=== PATIENT | female | born 1955 | race Caucasian/White ===

== ENCOUNTER → 2017-07-11 09:18 | Outpatient (CLI) | payer OTHER, SELFPAY ==
[2017-07-11 10:33] LABS: Ferritin 101 ng/mL (8-252); Free T3 2.9 pg/mL (2.18-3.98); T4 Free Direct 1.03 ng/dL (0.76-1.46); Thyroid Stim Hormone (TSH) 1.95 uIU/mL (0.358-3.74)
[2017-07-13 14:44] LABS: Vitamin D,25 Hydroxy 25.6 ng/mL (19.95-100.01)
[2017-07-15 16:09] LABS: Testosterone, Free 0.49 ng/dL (0.10-0.85); Testosterone, Total 27 ng/dL (3-41)
[2017-07-16 12:28] LABS: DHEA Sulfate 144.7 ug/dL (29.4-220.5)
== END ==
PROVIDERS: Family Provider Family Medicine; PCP Family Medicine; Visit Provider Family Medicine
DX: E03.9 Hypothyroidism, unspecified (principal); L65.9 Nonscarring hair loss, unspecified; E55.9 Vitamin D deficiency, unspecified
CPT/HCPCS: 36415; 82306; 82533; 82627; 82728; 84402; 84403; 84439; 84443; 84481; 82626

== ENCOUNTER → 2017-11-20 08:43 | Outpatient (CLI) | payer OTHER, SELFPAY ==
--- NOTE | 2017-11-20 08:43 | DT_ITS ---
This patient was seen during an EMR downtime November 16, 2017 - November 23, 2017. This patient may have a combination of paper and electronic documentation or all paper documentation. All documentation is viewable within the e-chart portion of [facility] for each patient visit.
[2017-11-24 16:10] LABS: Hemoglobin A1c 5.9 % (4.2-6.3)
[2017-11-24 16:21] LABS: Vitamin D,25 Hydroxy 33.3 ng/mL (29.95-100.01)
== END ==
PROVIDERS: Visit Provider Family Medicine
DX: E55.9 Vitamin D deficiency, unspecified (principal); E88.81 Metabolic syndrome and other insulin resistance
CPT/HCPCS: 36415; 80053; 80061; 82306; 83036

== ENCOUNTER → 2017-12-25 08:42 | Outpatient (CLI) | payer OTHER, SELFPAY ==
[2017-12-25 10:57] LABS: ALB/GLOB Ratio 0.9 RATIO (0.9-2.4); AST(SGOT) 28 U/L (15-37); Alanine Aminotransfer ALT/SGPT 44 U/L (13-56); Albumin, Serum 3.6 g/dL (3.2-5.0); Alkaline Phosphatase 111 U/L (45-117); Anion Gap 6 (5-15); BUN 16 mg/dL (7-18); BUN/Creat Ratio 16.5 RATIO (10-20); Calcium,Total 8.9 mg/dL (8.5-10.1); Chloride 107 mmol/L (98-107); Cholesterol 148 mg/dL (200); Creatinine, Serum 0.97 mg/dL (0.55-1.02); EST Glomerular Filtration Rate 62 mL/min (>60); Est Glom Filt Rate - Afr Amer 75 mL/min (>60); Globulin 3.8 g/dL (2.2-4.2); Glucose 121 mg/dL (74-106); High Density Lipoprotein 52 mg/dL; Potassium 3.9 mmol/L (3.5-5.1); Protein, Total 7.4 g/dL (6.4-8.2); Sodium Level 143 mmol/L (136-145); Triglycerides 120 mg/dL; Very Low Density Lipoprotein 24 mg/dL (5-40)
== END ==
PROVIDERS: Family Provider Family Medicine; PCP Family Medicine; Visit Provider Family Medicine
DX: E88.81 Metabolic syndrome and other insulin resistance (principal)
CPT/HCPCS: 80053; 80061

== ENCOUNTER → 2018-05-21 08:58 | Outpatient (CLI) | payer OTHER, SELFPAY ==
[2018-05-21 10:14] LABS: Basophil# 0.05 X10^3/uL; Basophil% 0.8 % (0-1); Eosinophil# 0.26 X10^3/uL; Eosinophils% 4.3 % (0-5); Hematocrit 41.2 % (37-47); Hemoglobin 13.4 g/dl (12.0-15.0); Lymphocyte % 36.4 % (19-41); Mean Corp Hgb Conc 32.5 g/gl (32-36); Mean Corpuscular Volume 92.4 fL (81-99); Mean Platelet Vol. 9.8 fl (6.2-12.0); Monocyte# 0.52 X10^3/uL; Monocyte% 8.6 % (0-10); Neutrophil % 49.7 % (47-70); Platelet Count 277 K/mm3 (150-450); RBC Distribution Width CV 13.2 % (11.6-14.6); RBC Distribution Width SD 44.2 fl (35.1-43.9); Red Blood Count 4.46 M/mm3 (4.2-5.4)
[2018-05-21 10:15] LABS: POSITIVE COUNT NO; POSITIVE DIFFERENTIAL NO; POSITIVE MORPHOLOGY NO
[2018-05-21 10:37] LABS: ALB/GLOB Ratio 0.9 RATIO (0.9-2.4); AST(SGOT) 30 U/L (15-37); Alanine Aminotransfer ALT/SGPT 33 U/L (13-56); Albumin, Serum 3.7 g/dL (3.2-5.0); Alkaline Phosphatase 103 U/L (45-117); Anion Gap 9 (5-15); BUN 14 mg/dL (7-18); Calcium,Total 8.9 mg/dL (8.5-10.1); Chloride 105 mmol/L (98-107); EST Glomerular Filtration Rate 60 mL/min (>60); Est Glom Filt Rate - Afr Amer 72 mL/min (>60); Ferritin 115 ng/mL (8-252); Globulin 3.9 g/dL (2.2-4.2); Glucose 105 mg/dL (74-106); Potassium 3.9 mmol/L (3.5-5.1); Protein, Total 7.6 g/dL (6.4-8.2); Sodium Level 143 mmol/L (136-145); Thyroid Stim Hormone (TSH) 4.19 uIU/mL (0.358-3.74)
== END ==
PROVIDERS: Family Provider Family Medicine; PCP Family Medicine; Visit Provider Family Medicine
DX: E03.9 Hypothyroidism, unspecified (principal); E61.1 Iron deficiency; F33.41 Major depressive disorder, recurrent, in partial remission
CPT/HCPCS: 36415; 80053; 82728; 84443; 85025

== ENCOUNTER → 2018-08-06 14:18 | Outpatient (CLI) | payer BC, SELFPAY | LOC: MFPLAB 14:20 → LABSPEC 14:21 | PROVIDERS: Family Provider Family Medicine; PCP Family Medicine; Referring Provider Family Medicine; Visit Provider Family Medicine | DX: R39.9 Unspecified symptoms and signs involving the genitourinary system (principal) | CPT/HCPCS: 87086; 87088 ==

== ENCOUNTER 2018-08-13 10:08 | Emergency (ER) | payer BC, SELFPAY ==
[2018-08-13 10:10] VITALS: BP 156/85; PULSE 82; RESP 15; TEMP 36.2; O2SAT 95; BMI 46.6
--- NOTE | 2018-08-13 10:23 | CT_ITS ---
STUDY: CT ABDOMEN AND PELVIS WITHOUT CONTRAST REASON FOR EXAM: Female, 63 years old. Lower abdominal pain. History of UTI. RADIATION DOSAGE (If Supplied By Facility): CTDIvol = ( 24.02 ) mGy, DLP = ( 1248.05 ) mGycm TECHNIQUE: Transaxial images were obtained from the dome of the diaphragm to the symphysis pubis without oral contrast, and without intravenous contrast. Sagittal and coronal images were reconstructed. Individualized dose optimization techniques were used for this CT. COMPARISON: Comparison is made with prior examination is February 20, 2017. FINDINGS: The visualized lung bases are unremarkable. The visualized portions of the heart are within normal limits. Normal liver. There are surgical clips in the gallbladder fossa consistent with a prior cholecystectomy. Normal spleen. Normal pancreas. Normal bilateral adrenal glands. Normal right kidney. Normal left kidney. There is a small hiatal hernia. Normal small intestine. There are multiple colonic diverticula consistent with diverticulosis. The patient is status post appendectomy. Normal abdominal aorta. Normal inferior vena cava. Normal retroperitoneum. Normal urinary bladder. There is absence of the uterus consistent with a prior hysterectomy. Normal abdominal wall. Normal osseous structures. CT/Abdomen/Pelvis without Cont IMPRESSION: Sigmoid diverticulosis. No radiographic evidence of diverticulitis at this time. Electronically Signed: Ad Conner, at 11:16 EST , Service support ,
[2018-08-13 10:32] VITALS: BP 156/85; PULSE 82; RESP 17; TEMP 36.2; O2SAT 95
[2018-08-13] MEDS: 0.9% Normal Saline 1,000 ML 125 ML IV (10:56)
[2018-08-13 11:04] LABS: Absolute Lymphocyte Count 1.89 X10^3/ul (0.83-4.51); Absolute Neutrophil Count 3.9 X10^3/uL (2.0-7.7); Basophil# 0.03 X10^3/uL; Basophil% 0.5 % (0-1); Eosinophil# 0.16 X10^3/uL; Eosinophils% 2.4 % (0-5); Hematocrit 41.7 % (37-47); Hemoglobin 13.6 g/dl (12.0-15.0); Lymphocyte # 1.89 X10^3/ul (4.0); Lymphocyte % 28.9 % (19-41); Mean Corp Hgb Conc 32.6 g/gl (32-36); Mean Corpuscular Hgb 30.4 pg (27.0-32.0); Mean Corpuscular Volume 93.1 fL (81-99); Mean Platelet Vol. 9.5 fl (6.2-12.0); Monocyte# 0.61 X10^3/uL; Monocyte% 9.3 % (0-10); Neutrophil # 3.85 X10^3/uL (2.7-7.7); Neutrophil % 58.7 % (47-70); Platelet Count 274 K/mm3 (150-450); RBC Distribution Width CV 12.7 % (11.6-14.6); RBC Distribution Width SD 42.8 fl (35.1-43.9); Red Blood Count 4.48 M/mm3 (4.2-5.4); White Blood Count 6.6 K/mm3 (4.4-11.0)
[2018-08-13 11:05] LABS: POSITIVE COUNT NO; POSITIVE DIFFERENTIAL NO; POSITIVE MORPHOLOGY NO
[2018-08-13 11:19] LABS: Anion Gap 11 (5-15); BUN 13 mg/dL (7-18); BUN/Creat Ratio 14.2 RATIO (10-20); Chloride 104 mmol/L (98-107); Creatinine, Serum 0.91 mg/dL (0.55-1.02); EST Glomerular Filtration Rate 66 mL/min (>60); Est Glom Filt Rate - Afr Amer 80 mL/min (>60); Estimated Creatinine Clearance 61.53 ml/min; Glucose 126 mg/dL (74-106); Potassium 3.8 mmol/L (3.5-5.1); Sodium Level 141 mmol/L (136-145)
[2018-08-13 11:23] LABS: Lactic Acid 1.4 mmol/L (0.4-2.0)
[2018-08-13 11:51] LABS: Bacteria 0 SEEN /hpf (None Seen); Mucous, Urine 0 SEEN /hpf (<or=2+); Red Blood Cells-Urine 0 SEEN /hpf (0-5); White Blood Cells 0 SEEN /hpf (0-5)
[2018-08-13 12:14] LABS: Color, Urine Yellow (Yellow); Glucose, Dipstick Normal (Normal); Ketone-Dipstick Negative (Negative); Leukocyte Esterase-Dipstick Negative /ul (Negative); Nitrite-Dipstick Negative (Negative); Occult Blood-Urine Negative /ul (Negative); Protein-Dipstick Negative (Negative); Urine Bilirubin Dipstick Negative (Negative); Urine Clarity Sl. Cloudy (Clear); Urine Urobilinogen Normal (Normal)
[2018-08-13 12:18] LABS: Squamous Epithelial Cells - UA 5-10 SEEN /hpf (5-10)
--- NOTE | 2018-08-13 12:42 | ED.VISSUMM ---
- ER Visit Summary Date of Service: 08/13/18 Chief Complaint: [Abdominal pain] History of Present Illness: The patient is a 63 F [presents the emergency department complaint of abdominal pain for over a week. Patient was seen a week ago by her primary care physician and diagnosed with a urinary tract infection and was given a shot of Rocephin as well as started on Keflex. Patient has since finished her antibiotics. Patient states that she felt better for a short time but started having severe pain again this morning in her lower abdomen and comes in for evaluation. Patient states that about a week ago she had intermittent fevers. She denies any urinary symptoms currently. She is had some mild nausea but no vomiting. She denies any blood in her stool or black tarry stool. Patient has prior history of cholecystectomy, hysterectomy, bladder suspension with mesh.] Patient states she is had pain off and on for years over the area of the incision where they put in her bladder mesh. Physical Examination: [HEENT-PERRLA, EOMI. Cranial nerves II through XII grossly intact. TMs clear. Mucous membranes moist. No adenopathy. Cardiovascular-regular rate and rhythm without murmur or ectopy Lungs-clear to auscultation, chest wall stable without crepitus or subcu emphysema Abdomen-normoactive bowel sounds, soft. Patient has diffuse tenderness palpation over the lower abdomen with some guarding. There is no rebound, rigidity, or perineal signs. Extremities-intact ?4, normal range of motion, normal pulses, atraumatic] Test Results: [CBC with differential was normal. Chemistries were unremarkable. Lactate was 1.4. Urinalysis was normal. 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 Patient to return if worsening pain, fever, vomiting, or condition should worsen anyway.] Disposition: [Discharged home in stable condition] Impression: [Abdominal pain-etiology uncertain] This note was generated with [employer] software. It may contain incorrect words, spelling, and punctuation that were not noted in review of the chart prior to signing ED Disposition - Plan for ED Patient: Referrals: Blade Horne MD [Primary Care Provider] -
--- NOTE | 2018-08-13 12:45 | ED.DCSUM_ITS ---
- ER Visit Summary Date of Service: 08/13/18 Chief Complaint: [Abdominal pain] History of Present Illness: The patient is a 63 F [presents the emergency department complaint of abdominal pain for over a week. Patient was seen a week ago by her primary care physician and diagnosed with a urinary tract infection and was given a shot of Rocephin as well as started on Keflex. Patient has since finished her antibiotics. Patient states that she felt better for a short time but started having severe pain again this morning in her lower abdomen and comes in for evaluation. Patient states that about a week ago she had intermittent fevers. She denies any urinary symptoms currently. She is had some mild nausea but no vomiting. She denies any blood in her stool or black tarry stool. Patient has prior history of cholecystectomy, hysterectomy, bladder suspension with mesh.] Patient states she is had pain off and on for years over the area of the incision where they put in her bladder mesh. Physical Examination: [HEENT-PERRLA, EOMI. Cranial nerves II through XII grossly intact. TMs clear. Mucous membranes moist. No adenopathy. Cardiovascular-regular rate and rhythm without murmur or ectopy Lungs-clear to auscultation, chest wall stable without crepitus or subcu emph ysema Abdomen-normoactive bowel sounds, soft. Patient has diffuse tenderness palpation over the lower abdomen with some guarding. There is no rebound, rigidity, or perineal signs. Extremities-intact ?4, normal range of motion, normal pulses, atraumatic] Test Results: [CBC with differential was normal. Chemistries were unremarkable. Lactate was 1.4. Urinalysis was normal. CT scan showed diverticulosis otherwise nothing acute.] Emergency Department Course and Treatment: [Patient did not want pain medication.] Treatment Plan: [Patient will be given a prescription for [place] for severe pain and advised to follow-up with her CHANNELER INSOLE or primary care physician. Patient to return if worsening pain, fever, vomiting, or condition should worsen anyway.] Disposition: [Discharged home in stable condition] Impression: [Abdominal pain-etiology uncertain] This note was generated with [employer] software. It may contain incorrect words, spelling, and punctuation that were not noted in review of the chart prior to signing ED Disposition - Plan for ED Patient: Referrals: Blade Horne MD [Primary Care Provider] -
--- NOTE | 2018-08-13 12:45 | ED.DEP ---
ED Disposition - Plan for ED Patient: Instructions: ED Abdominal Pain Unkn Cause Prescriptions: Hydrocodone Bitart/Apap 5-325 [Gordo 5MG-325MG] 1 tab PO Q4H PRN PRN 2 Days #10 tab PRN Reason: Pain Referrals: Blade Horne MD [Primary Care Provider] - 3-5 Days Angel Lundberg MD [STAFF PHYSICIAN] - 3-5 Days
[2018-08-13 12:56] VITALS: BP 144/97; PULSE 77; RESP 14
== END 2018-08-13 12:57 | disposition home or self-care (01) ==
PROVIDERS: Emergency Provider Emergency Medicine; Family Provider Family Medicine; PCP Family Medicine
DX: R10.9 Unspecified abdominal pain (principal); R11.0 Nausea; E78.00 Pure hypercholesterolemia, unspecified; K21.9 Gastro-esophageal reflux disease without esophagitis; E03.9 Hypothyroidism, unspecified; K57.30 Diverticulosis of large intestine without perforation or abscess without bleeding; Z90.49 Acquired absence of other specified parts of digestive tract; Z90.710 Acquired absence of both cervix and uterus; Z87.440 Personal history of urinary (tract) infections
CPT/HCPCS: 74176; 80048; 81001; 83605; 85025; 96360; 96361; 99283; J7030; A4216

== ENCOUNTER → 2019-01-05 12:31 | Outpatient (CLI) | payer BC, SELFPAY ==
[2019-01-05 14:18] LABS: Hematocrit 37.1 % (37-47); Hemoglobin 12.3 g/dL (12.0-15.0); Mean Corp Hgb Conc 33.2 g/dL (32-36); Mean Corpuscular Hgb 30.8 pg (27.0-32.0); Mean Corpuscular Volume 92.8 fL (81-99); Mean Platelet Vol. 10.1 fl (6.2-12.0); Platelet Count 264 K/mm3 (150-450); RBC Distribution Width SD 44.5 fl (35.1-43.9); White Blood Count 5.8 K/mm3 (4.4-11.0)
[2019-01-05 14:36] LABS: AST(SGOT) 32 U/L (15-37); Alanine Aminotransfer ALT/SGPT 41 U/L (13-56); Albumin, Serum 3.5 g/dL (3.2-5.0); Alkaline Phosphatase 92 U/L (45-117); Anion Gap 8 (5-15); BUN 13 mg/dL (7-18); BUN/Creat Ratio 12.9 RATIO (10-20); CRP < 2.90 mg/L (0.0-3.0); Calcium,Total 8.3 mg/dL (8.5-10.1); Chloride 110 mmol/L (98-107); Creatinine, Serum 1.01 mg/dL (0.55-1.02); EST Glomerular Filtration Rate 59 mL/min (>60); Est Glom Filt Rate - Afr Amer 71 mL/min (>60); Globulin 3.4 g/dL (2.2-4.2); Glucose 89 mg/dL (74-106); Protein, Total 6.9 g/dL (6.4-8.2); Sodium Level 143 mmol/L (136-145)
== END ==
PROVIDERS: Family Provider Family Medicine; PCP Family Medicine; Referring Provider Family Medicine; Visit Provider Family Medicine
DX: K57.32 Diverticulitis of large intestine without perforation or abscess without bleeding (principal)
CPT/HCPCS: 36415; 80053; 85027; 86140

== ENCOUNTER → 2019-01-28 10:41 | Outpatient (CLI) | payer BC, SELFPAY ==
[2019-01-14 07:43] VITALS: BMI 46.6
[2019-01-28 12:34] LABS: Absolute Lymphocyte Count 2.19 X10^3/uL (0.83-4.51); Absolute Neutrophil Count 3.7 X10^3/uL (2.0-7.7); Basophil# 0.04 X10^3/uL; Basophil% 0.6 % (0-1); Eosinophil# 0.17 X10^3/uL; Eosinophils% 2.6 % (0-5); Hematocrit 40.1 % (37-47); Hemoglobin 13.2 g/dL (12.0-15.0); Lymphocyte # 2.19 X10^3/ul (4.0); Lymphocyte % 32.9 % (19-41); Mean Corp Hgb Conc 32.9 g/dL (32-36); Mean Corpuscular Hgb 30.6 pg (27.0-32.0); Monocyte# 0.54 X10^3/uL; Monocyte% 8.1 % (0-10); NRBC Flagged by Analyzer 0 % (0-5); Neutrophil # 3.69 X10^3/uL (2.7-7.7); Neutrophil % 55.5 % (47-70); Platelet Count 261 K/mm3 (150-450); RBC Distribution Width CV 12.5 % (11.6-14.6); RBC Distribution Width SD 43.2 fl (35.1-43.9); Red Blood Count 4.31 M/mm3 (4.2-5.4); White Blood Count 6.7 K/mm3 (4.4-11.0)
[2019-01-28 12:52] LABS: Hemoglobin A1c 5.9 % (4.2-6.3)
[2019-01-28 12:54] LABS: Vitamin D,25 Hydroxy 40.6 ng/mL (29.95-100.01)
[2019-01-28 12:59] LABS: ALB/GLOB Ratio 0.9 RATIO (0.9-2.4); AST(SGOT) 32 U/L (15-37); Alanine Aminotransfer ALT/SGPT 52 U/L (13-56); Albumin, Serum 3.6 g/dL (3.2-5.0); Alkaline Phosphatase 119 U/L (45-117); Anion Gap 4 (5-15); BUN 16 mg/dL (7-18); BUN/Creat Ratio 17.3 RATIO (10-20); Calcium,Total 8.8 mg/dL (8.5-10.1); Chloride 108 mmol/L (98-107); Creatinine, Serum 0.92 mg/dL (0.55-1.02); EST Glomerular Filtration Rate 65 mL/min (>60); Est Glom Filt Rate - Afr Amer 79 mL/min (>60); Free T3 2.8 pg/mL (2.18-3.98); Globulin 3.9 g/dL (2.2-4.2); Glucose 109 mg/dL (74-106); Protein, Total 7.5 g/dL (6.4-8.2); Sodium Level 140 mmol/L (136-145); T4 Free Direct 0.92 ng/dL (0.76-1.46); Thyroid Stim Hormone (TSH) 3.72 uIU/mL (0.358-3.74)
== END ==
PROVIDERS: Family Provider Family Medicine; PCP Family Medicine; Referring Provider Family Medicine; Visit Provider Family Medicine
DX: E03.9 Hypothyroidism, unspecified (principal); K76.9 Liver disease, unspecified; E55.9 Vitamin D deficiency, unspecified
CPT/HCPCS: 36415; 80053; 82306; 83036; 84439; 84443; 84481; 85025

== ENCOUNTER 2019-02-07 08:45 | Day surgery (SDC) | payer BC, SELFPAY ==
[2019-01-14 07:43] VITALS: BMI 46.6
--- NOTE | 2019-01-15 10:43 | HP_ITS ---
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: No Is patient in pain?: No Allergies pravastatin [From Pravachol] Allergy (Mild, Verified 01/14/19 07:33) itching ketoprofen [From Orudis] Allergy (Verified 08/13/18 10:09) Nausea/Vom/Diarrhea Medications Levothyroxine [Synthroid] 150 mcg PO DAILY 06/15/13 [History Confirmed 01/14/19] Rosuvastatin Calcium [Crestor] 20 mg PO DAILY 06/15/13 [History Confirmed 01/14/19] Omeprazole [Prilosec] 20 mg PO DAILY 02/09/14 [History Confirmed 01/14/19] Calcium Carbonate [Calcium] 500 mg PO DAILY 08/13/18 [History Confirmed 01/14/19] Cholecalciferol (Vitamin D3) [Vitamin D3] 3,000 unit PO DAILY 08/13/18 [History Confirmed 01/14/19] Doxepin HCl 25 - 50 mg PO DAILY 08/13/18 [History Confirmed 01/14/19] Ferrous Sulfate [Iron] 325 mg PO DAILY 08/13/18 [History Confirmed 01/14/19] Pramipexole Di-HCl [Mirapex] 0.25 - 0.75 mg PO QHS 08/13/18 [History Confirmed 01/14/19] Vortioxetine Hydrobromide [Trintellix] 10 mg PO DAILY 08/13/18 [History Confirmed 01/14/19] traZODone [Desyrel] 50 - 100 mg PO QHS PRN 08/13/18 [History Confirmed 01/14/19] dicyclomine 20 mg tablet 20 mg PO BID 01/14/19 [History Confirmed 01/14/19] fexofenadine 180 mg tablet 180 mg PO DAILY 01/14/19 [History Confirmed 01/14/19] ipratropium bromide 0.03 % nasal spray 2 spray INTRANASAL BID 01/14/19 [History Confirmed 01/14/19] mecobalamin (vitamin B12) 5,000 mcg disintegrating tablet mcg PO tab 01/14/19 [History] melatonin 1 mg tablet 1 mg PO HS 01/14/19 [History Confirmed 01/14/19] montelukast 10 mg tablet 10 mg PO QPM 01/14/19 [History Confirmed 01/14/19] Is last menstrual period known: No Post menopausal: Yes Patient : No PFSH Medical History Depression (emotion) (Chronic) Morbid obesity with BMI of 40.0-44.9, adult (Chronic) Anxiety (Chronic) Hypothyroidism (Chronic) Respiratory insufficiency (Acute) Hyperlipemia (Chronic) Barretts esophagus (Acute) Diverticulitis (Acute) GERD (gastroesophageal reflux disease) (Acute) History of hysterectomy (Acute ~1998) Surgical History History of cholecystectomy (Acute ~1998) History of colonoscopy (Acute) History of esophagogastroduodenoscopy (EGD) (Acute ~2015) Family History Sister CAD (coronary artery disease) Brother CAD (coronary artery disease) Heart disease Myocardial infarction Mother Diabetes Myocardial infarction Father Hypertension Heart disease Myocardial infarction Social History (Updated 01/15/19 @ 10:43 by Dony Gnozales MD) Smoking Status: Never smoker HPI HPI HPI: CULLEN CUEVA, is a 63 F who presents to the office today for HPI HPI Surgical H&P: Yes HPI: CULLEN CUEVA, is a 63 F who presents to the office today for EGD and colonoscopy. 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 Presently though the patient has been experiencing left lower quadrant abdominal pain and has had numerous episodes of diverticulitis which have been treated effectively in an outpatient setting. This year alone she has had probably more than 3 episodes of diverticulitis treated with oral antibiotics. Her most recent CAT scan of the abdomen and pelvis without contrast showed only diverticulosis in the sigmoid colon no radiologic evidence of diverticulitis. This was completed on 08/13/2018 it has been greater than 10 years since her last colonoscopy. Patient presents for evaluation and possible surgical evaluation of her diverticular disease. ROS General General: No weight change, appetite, fatigue, colon cancer, breast cancer or weakness HEENT HEENT: No difficulty swallowing, eye injury, eye surgery, swollen glands or hoarseness Endo Endocrine: Yes thyroid disease; no diabetes mellitus, thyroid cancer, Hair loss, heat intolerance or cold intolerance Cardio Cardiovascular: No murmur, pacemaker, heart disease, atrial fibrillation, high blood pressure, heart attack, heart stent, palpitations, shortness of breat with exertion or chest pain Psych Psychiatric: Yes depression; no anxiety or hearing voices Resp Respiratory: No shortness of breath, No sleep apnea, No cough, No COPD, No asthma, No emphysema, No wheezing Gastro Gastrointestinal: Yes abdominal pain, Yes nausea or vomiting, Yes diarrhea, Yes constipation, No blood in stool, Yes acid reflux, No hemorrhoids, No ulcers, Yes gallbladder problem, No black,tarry stools Neuro Neurologic: No weakness Exam Const General: no acute distress, well developed, well hydrated Orientation: oriented to person, oriented to place, oriented to time [facility] Head: normocephalic, atraumatic Ears: external ears normal Mouth: moist mucous membranes Eyes Sclera: sclerae normal Pupils: normal by confrontation Neck Neck: no lymphadenopathy noted Neck mass: No Thyroid: thyroid normal, symmetrical Chest Chest palpation & inspection: normal inspection of the chest Resp Effort & Inspection: normal respiratory effort Auscultation: clear to auscultation bilaterally Percussion: percussion normal Cardio Rate: regular rate Rhythm: regular rhythm Heart Sounds: no murmurs GI Palpation: soft, no hepatosplenomegaly, no masses, nontender Rectal Exam: other Other: Rectal exam deferred. Extrem General: normal to inspection, no clubbing, cyanosis or edema Assessment & Plan Problems 1. Diverticulitis large intestine w/o perforation or abscess w/o bleeding K57.32 2. Left lower quadrant abdominal pain R10.32 Plan I have discussed the above with the patient. I have offered the patient colonoscopy for evaluation. I have explained the risks/benefits of the procedure and described the procedure. I have discussed the risks with the patient, including but not limited to: infection, bleeding, perforation of the GI tract requiring emergency surgery, inability to complete the procedure, injury to any internal organs, complications of anesthesia, etc. - the patient understands and agrees to proceed. I have answered all the patient's questions to the patient's satisfaction and the patient has no further questions. The patient has been given instructions for the colon cleansing preparation. Patient will need to have a repeat upper endoscopy sometime in April as well. I will see her back at that time so that we could get that scheduled. Orders Orders: Colonoscopy 01/14/19 K57.92 Coding Level of Care Code Off vis,new,level 3 Diagnoses Diverticulitis large intestine w/o perforation or abscess w/o bleeding K57.32 Left lower quadrant abdominal pain R10.32 01/15/19 1043 <Electronically signed by Dony lucas MD> Date _ Dony Gonzales MD I have re-examined the patient. There are no clinical changes since date of exam.
[2019-02-07 09:03] VITALS: BP 147/79; PULSE 76; RESP 16; TEMP 36.9; O2SAT 94; BMI 44.1
[2019-02-07] MEDS: Lactated Ringers 1,000 ML 75 ML IV (09:21)
[2019-02-07 10:29] VITALS: BP 135/80; BP 147/79; PULSE 69; RESP 16; TEMP 36.4; O2SAT 92
--- NOTE | 2019-02-07 10:31 | OP.ENDO_ITS ---
02/07/2019 Blade Horne [address] [place] [address] Re : Colonoscopy procedure for Cathie Escudero Dear Dr. Horne This procedure was performed on Thursday, February 07, 2019. My impressions and recommendations are as follows: Impressions : - Diverticulosis in the sigmoid colon and in the descending colon. No specimens collected. - Non-bleeding internal hemorrhoids. No specimens collected. - The examination was otherwise normal. Recommendations : - Discharge patient to home. - Resume previous diet. - Continue present medications. - Repeat colonoscopy in 10 years for screening purposes. - Return to primary care physician PRN. My findings are described in the full procedure note, which is enclosed. If I can be of further assistance, please feel free to contact me at Doctor phone number(s): , Fax: [phone], Work: . Sincerely, MD Dony Kaur MD 02/07/2019 10:30:24 AM This report has been signed electronically.
[2019-02-07 10:35] VITALS: BP 142/77; BP 147/79; PULSE 67; RESP 16; O2SAT 93
[2019-02-07 10:40] VITALS: BP 143/84; BP 147/79; PULSE 57; RESP 18; O2SAT 94
[2019-02-07 10:45] VITALS: BP 126/91; BP 147/79; PULSE 56; RESP 18; TEMP 37; O2SAT 94
[2019-02-07 10:56] VITALS: BP 147/79
== END 2019-02-07 10:58 | disposition home or self-care (01) ==
LOC: EN 08:45 → AC 08:47
PROVIDERS: Family Provider Family Medicine; PCP Family Medicine; Referring Provider Family Medicine; Visit Provider Surgery
PROC: 0DJD8ZZ Inspection of Lower Intestinal Tract, Via Natural or Artificial Opening Endoscopic (ICD-10-PCS; CPT 45378; principal; 2019-02-07 09:55)
DX: Z12.11 Encounter for screening for malignant neoplasm of colon (principal); K64.8 Other hemorrhoids; K57.32 Diverticulitis of large intestine without perforation or abscess without bleeding; K57.30 Diverticulosis of large intestine without perforation or abscess without bleeding; F32.9 Major depressive disorder, single episode, unspecified; E66.01 Morbid (severe) obesity due to excess calories; F41.9 Anxiety disorder, unspecified; Z68.41 Body mass index [BMI] 40.0-44.9, adult; K21.9 Gastro-esophageal reflux disease without esophagitis; E78.5 Hyperlipidemia, unspecified; E03.9 Hypothyroidism, unspecified; Z90.49 Acquired absence of other specified parts of digestive tract
CPT/HCPCS: 45378; J7120; J2405

== ENCOUNTER 2019-04-08 08:30 | Outpatient (RCR) | payer SELFPAY | END 2019-04-14 23:59 | LOC: NS 08:30 | PROVIDERS: Family Provider Family Medicine; PCP Family Medicine; Visit Provider Family Medicine | DX: Z71.3 Dietary counseling and surveillance (principal); E66.9 Obesity, unspecified; Z68.41 Body mass index [BMI] 40.0-44.9, adult; K58.9 Irritable bowel syndrome, unspecified | CPT/HCPCS: 97802; 97803 ==

== ENCOUNTER → 2019-04-28 08:41 | Outpatient (CLI) | payer BC, SELFPAY ==
[2019-04-28 10:37] LABS: Thyroid Stim Hormone (TSH) 3.28 uIU/mL (0.358-3.74)
== END ==
PROVIDERS: Family Provider Family Medicine; PCP Family Medicine; Referring Provider Family Medicine; Visit Provider Family Medicine
DX: E03.9 Hypothyroidism, unspecified (principal)
CPT/HCPCS: 36415; 84443

== ENCOUNTER 2019-05-11 11:00 | Outpatient (RCR) | payer BC, SELFPAY | END 2019-05-14 23:59 | LOC: NS 11:00 | PROVIDERS: Family Provider Family Medicine; PCP Family Medicine; Visit Provider Family Medicine | DX: Z71.3 Dietary counseling and surveillance (principal); E66.9 Obesity, unspecified; Z68.41 Body mass index [BMI] 40.0-44.9, adult; K58.9 Irritable bowel syndrome, unspecified | CPT/HCPCS: 97803 ==

== ENCOUNTER → 2019-10-21 | Outpatient (CLI) | payer BC, SELFPAY ==
[2019-10-21 09:54] LABS: Absolute Lymphocyte Count 3.67 X10^3/uL (0.83-4.51); Absolute Neutrophil Count 3.2 X10^3/uL (2.0-7.7); Basophil# 0.05 X10^3/uL; Basophil% 0.6 % (0-1); Eosinophil# 0.17 X10^3/uL; Eosinophils% 2.2 % (0-5); Hemoglobin 14.2 g/dL (12.0-15.0); Lymphocyte # 3.67 X10^3/ul (4.0); Lymphocyte % 47.3 % (19-41); Mean Corp Hgb Conc 32.3 g/dL (32-36); Mean Corpuscular Hgb 31.1 pg (27.0-32.0); Mean Corpuscular Volume 96.3 fL (81-99); Monocyte# 0.69 X10^3/uL; Monocyte% 8.9 % (0-10); NRBC Flagged by Analyzer 0 % (0-5); Neutrophil # 3.17 X10^3/uL (2.7-7.7); Neutrophil % 40.9 % (47-70); Platelet Count 292 K/mm3 (150-450); RBC Distribution Width CV 13.2 % (11.6-14.6); Red Blood Count 4.57 M/mm3 (4.2-5.4); White Blood Count 7.8 K/mm3 (4.4-11.0)
[2019-10-21 10:06] LABS: ALB/GLOB Ratio 0.9 RATIO (0.9-2.4); AST(SGOT) 23 U/L (15-37); Alanine Aminotransfer ALT/SGPT 35 U/L (13-56); Albumin, Serum 3.7 g/dL (3.2-5.0); Alkaline Phosphatase 120 U/L (45-117); Anion Gap 5 (5-15); BUN 16 mg/dL (7-18); BUN/Creat Ratio 16.1 RATIO (10-20); CRP < 2.90 mg/L (0.0-3.0); Calcium,Total 8.8 mg/dL (8.5-10.1); Chloride 102 mmol/L (98-107); EST Glomerular Filtration Rate 60 mL/min (>60); Est Glom Filt Rate - Afr Amer 72 mL/min (>60); Glucose 106 mg/dL (74-106); Potassium 3.6 mmol/L (3.5-5.1); Protein, Total 7.7 g/dL (6.4-8.2); Sodium Level 138 mmol/L (136-145)
== END | disposition home or self-care (01) ==
LOC: MTLAB 07:33
PROVIDERS: PCP Family Medicine; Referring Provider Family Medicine; Visit Provider Family Medicine
DX: R19.7 Diarrhea, unspecified (principal)
CPT/HCPCS: 36415; 80053; 85025; 86140; 87506

== ENCOUNTER → 2019-11-04 09:00 | Outpatient (CLI) | payer BC, SELFPAY ==
[2019-11-04 10:19] LABS: T4 Free Direct 1.04 ng/dL (0.76-1.46); Thyroid Stim Hormone (TSH) 3.57 uIU/mL (0.358-3.74)
== END ==
PROVIDERS: PCP Family Medicine; Referring Provider Family Medicine; Visit Provider Family Medicine
DX: E03.9 Hypothyroidism, unspecified (principal)
CPT/HCPCS: 36415; 84439; 84443

== ENCOUNTER → 2019-12-08 | Outpatient (CLI) | payer BC, SELFPAY ==
[2019-12-08 17:40] LABS: Vitamin D,25 Hydroxy 42.4 ng/mL
== END | disposition home or self-care (01) ==
LOC: MFPLAB 14:37
PROVIDERS: PCP Family Medicine; Referring Provider Family Medicine; Visit Provider Family Medicine
DX: E55.9 Vitamin D deficiency, unspecified (principal)
CPT/HCPCS: 36415; 82306

== ENCOUNTER → 2019-12-22 | Outpatient (CLI) | payer BC, SELFPAY ==
[2019-12-22 17:51] LABS: Thyroid Stim Hormone (TSH) 3.47 uIU/mL (0.358-3.74)
== END | disposition home or self-care (01) ==
LOC: MFPLAB 15:03
PROVIDERS: PCP Family Medicine; Referring Provider Family Medicine; Visit Provider Family Medicine
DX: E03.9 Hypothyroidism, unspecified (principal)
CPT/HCPCS: 36415; 84443

== ENCOUNTER → 2020-03-22 | Outpatient (CLI) | payer BC, MEDICARE, SELFPAY ==
--- NOTE | 2020-03-22 17:02 | MRI_ITS ---
STUDY: MRI BRAIN WITHOUT CONTRAST REASON FOR EXAM: Female, 64 years old. transient memory loss, confusion, increased forgetfulness since being ill w/ Covid symptoms 10/2019 TECHNIQUE: Standardized multiplanar fat and water weighted pulse sequences were obtained. COMPARISON: CT of the brain 05/05/2009 FINDINGS: Normal size of the ventricles and extra-axial spaces for the patient''s age. Solitary tiny nonspecific white matter lesions without mass effect or restricted diffusion of uncertain clinical significance... Normal bilateral basal ganglia. Normal thalami. There is no extra-axial fluid accumulation. Normal flow voids within the major intracranial circulation suggesting patency by spin echo criteria. Normal sella turcica, pituitary gland, infundibular stalk, optic chiasm and hypothalamus. Normal tectal plate and pineal gland. Normal midbrain, sherie and medulla. Normal cerebellum. Normal basal cisterns. Normal bilateral temporal bones. Normal bilateral internal auditory canals. No demonstrated orbital abnormality, within the constraints of a routine brain study. Normal visualized paranasal sinuses. Normal calvarium and skull base. Normal visualized soft tissue structures. Normal visualized upper cervical spine. MRI/Brain without Contrast IMPRESSION: Tiny nonspecific white matter lesion in the right frontal lobe. No significant white matter disease or acute infarct. Electronically Signed: Maico Card MD at 19:20 EDT , Service support ,
== END | disposition home or self-care (01) ==
PROVIDERS: PCP Family Medicine; Referring Provider Family Medicine; Visit Provider Family Medicine
DX: R41.3 Other amnesia (principal)
CPT/HCPCS: 70551

== ENCOUNTER → 2020-03-26 | Outpatient (CLI) | payer MEDICARE, BC, SELFPAY ==
[2020-03-26 10:31] LABS: Cholesterol 157 mg/dL (200); Free T3 2.9 pg/mL (2.18-3.98); High Density Lipoprotein 66 mg/dL; T4 Total, Thyroxin 9.9 ug/dL (4.8-13.9); Thyroid Stim Hormone (TSH) 4.17 uIU/mL (0.358-3.74); Triglycerides 115 mg/dL; Very Low Density Lipoprotein 23 mg/dL (5-40)
== END | disposition home or self-care (01) ==
LOC: MTLAB 09:02
PROVIDERS: PCP Family Medicine; Referring Provider Family Medicine; Visit Provider Family Medicine
DX: E03.9 Hypothyroidism, unspecified (principal); E66.01 Morbid (severe) obesity due to excess calories
CPT/HCPCS: 36415; 80061; 84436; 84443; 84481

== ENCOUNTER 2020-06-01 10:26 | Day surgery (SDC) | payer BC, MEDICARE, SELFPAY ==
[2020-05-18 12:58] VITALS: BMI 47.4
[2020-05-21 10:31] VITALS: BMI 47.4
--- NOTE | 2020-05-23 10:00 | HP_ITS ---
Intake Vital Signs 05/18/20 Height 5 ft 7 in 05/18/20 Weight: 303 lb 05/18/20 BMI 47.4 05/18/20 BP 136/82 H 05/18/20 Blood Pressure Location Lt brachial 05/18/20 Position Sitting 05/18/20 Respiration 19 H 05/18/20 Pulse 90 05/18/20 Pulse Source Monitor 05/18/20 Temp 97.5 F L 05/18/20 Temp Source Temporal 05/18/20 Pulse Oximetry (%) 97 05/18/20 Oxygen Delivery Method room air Intake Visit Reasons: EGD Chief Complaint: Barretts esophagus Explosives Operator Required: No Accompanied by: Self Is patient in pain?: No Allergies pravastatin [From Pravachol] Allergy (Mild, Verified 05/18/20 13:04) itching ketoprofen [From Orudis] Allergy (Verified 05/18/20 13:04) Nausea/Vom/Diarrhea Medications Levothyroxine [Synthroid] 150 mcg PO DAILY 06/15/13 [History Confirmed 05/18/20] Rosuvastatin Calcium [Crestor] 20 mg PO DAILY 06/15/13 [History Confirmed 05/18/20] Omeprazole [Prilosec] 20 mg PO DAILY 02/09/14 [History Confirmed 05/18/20] Calcium Carbonate [Calcium] 500 mg PO DAILY 08/13/18 [History Confirmed 05/18/20] Cholecalciferol (Vitamin D3) [Vitamin D3] 3,000 unit PO DAILY 08/13/18 [History Confirmed 05/18/20] Pramipexole Di-HCl [Mirapex] 0.25 - 0.75 mg PO QHS 08/13/18 [History Confirmed 05/18/20] Vortioxetine Hydrobromide [Trintellix] 10 mg PO DAILY 08/13/18 [History Confirmed 05/18/20] traZODone [Desyrel] 50 - 100 mg PO QHS PRN 08/13/18 [History Confirmed 05/18/20] dicyclomine 20 mg tablet 20 mg PO BID 01/14/19 [History Confirmed 05/18/20] mecobalamin (vitamin B12) 5,000 mcg disintegrating tablet 5,000 mcg PO DAILY tab 01/14/19 [History Confirmed 05/18/20] melatonin 1 mg tablet 1 mg PO HS PRN 01/14/19 [History Confirmed 05/18/20] nortriptyline 10 mg capsule 40 mg PO DAILY cap 05/18/20 [History Confirmed 05/18/20] [facility] Medical History Depression (emotion) (Chronic) Morbid obesity with BMI of 40.0-44.9, adult (Chronic) Anxiety (Chronic) Hypothyroidism (Chronic) Respiratory insufficiency (Acute) Hyperlipemia (Chronic) Barretts esophagus (Acute) Diverticulitis (Acute) GERD (gastroesophageal reflux disease) (Acute) Surgical History History of cholecystectomy (Acute ~1998) History of colonoscopy (Acute) History of esophagogastroduodenoscopy (EGD) (Acute ~2015) History of hysterectomy (Acute ~1998) Family History Sister CAD (coronary artery disease) Brother CAD (coronary artery disease) Heart disease Myocardial infarction Mother Diabetes Myocardial infarction Father Hypertension Heart disease Myocardial infarction Social History (Updated 05/18/20 @ 13:[address] Dony Gonzales MD) Smoking Status: Never smoker Tobacco: How many years used: 15 Electronic Cigarette Use: not used how long ago did patient quit smokin years second hand exposure: No alcohol intake: current alcohol intake frequency: holidays/special occasions only substance use type: does not use HPI HPI Surgical H&P: Yes HPI: CULLEN CUEVA, is a 65 F who presents to the office today for Evaluation for an EGD. Patient has a known history of Stauffer's esophagus. She states that has been greater than 3 years since her last upper scope which was done in [place]. She reports that at that time she was told that everything looks fine however she did not recall if they had done biopsies or not. She states that she has been doing well on her current PPI regiment. Occasionally she needs to take an extra omeprazole. This got a little bit worse when she was recently started on nortriptyline but now she has been doing better. She complains of no epigastric pain at this time. She is not having any nausea or vomiting. ROS Endo Endocrine: Yes thyroid disease Psych Psychiatric: Yes depression Resp Respiratory: Yes sleep apnea Gastro Gastrointestinal: Yes acid reflux, Yes gallbladder problem Exam Const General: no acute distress, well developed, well hydrated Orientation: oriented to person, oriented to place, oriented to time [facility] Head: normocephalic, atraumatic Ears: external ears normal Mouth: moist mucous membranes Eyes Sclera: sclerae normal Pupils: normal by confrontation Neck Neck: no lymphadenopathy noted Neck mass: No Thyroid: thyroid normal, symmetrical Chest Chest palpation & inspection: normal inspection of the chest Resp Effort & Inspection: normal respiratory effort Auscultation: clear to auscultation bilaterally Percussion: percussion normal Cardio Rate: regular rate Rhythm: regular rhythm GI Inspection: obesity Palpation: soft, no hepatosplenomegaly, no masses, nontender Rectal Exam: other Other: Rectal exam deferred. Extrem General: normal to inspection, no clubbing, cyanosis or edema Assessment & Plan Problems 1. Gastroesophageal reflux disease, unspecified whether esophagitis present K21.9 Plan I have discussed the above with the patient. I have offered the patient esophagogastroduodenoscopy for evaluation. I have explained the risks/benefits of the procedure and described the procedure. I have discussed the risks with the patient, including but not limited to: infection, bleeding, perforation of the GI tract requiring emergency surgery, inability to complete the procedure, injury to any internal organs, complications of anesthesia, etc. - the patient understands and agrees to proceed. I have answered all the patient's questions to the patient's satisfaction and the patient has no further questions. The patient has been given instructions for the colon cleansing preparation. Coding Level of Care Code Off vis,est,level 3 Diagnoses Gastroesophageal reflux disease, unspecified whether esophagitis present K21.9 ??Esophagitis presence: esophagitis presence not specified COVID (Procedure Consent) Procedure Criteria Procedure Criteria: Yes Elective The surgeon/proceduralist and patient have discussed in detail the risk of exposure to and/or potential harm posed by the COVID-19 virus with having a surgery/procedure at this time versus the risk of? delaying the surgery/procedure. It is not possible to know either the risk of delaying the surgery or procedure or chance of getting an infection with perfect accuracy, but a joint decision was made between the patient and the surgeon/proceduralist ?to proceed at this time with the scheduled surgery/procedure as indicated on the consent form. I have re-examined the patient. There are no clinical changes since date of exam.
[2020-06-01] VITALS (7 sets, daily range): BP systolic 107–153; BP diastolic 63–90; PULSE 83–94; RESP 16; TEMP 36.3–36.5; O2SAT 88–94; BMI 47.1
[2020-06-01] MEDS: Lactated Ringers 1,000 ML 100 ML IV (11:08)
--- NOTE | 2020-06-01 11:45 | IMM_PTH ---
PATIENT: CULLEN CUEVA LOC: EN U#:[id number] AGE/SX: 65/F ROOM: RE06/01/[address]: Dr. Dony Gonzales MD : 1955 BED: DIS: 06/01/2020 SPEC #: [id number] RECD: 06/01/20 13:53 STATUS: ALTHEA REQ #: [id number] PEGGY: 06/01/20 11:[address]: Dony Gonzales DEPT: IMMUNOHISTOCHEMISTRY RECD BY: Madonna Mayes ENTERED: 06/01/20 13:56 SP TYPE: IMMUNO OTHR DR: Dr. Nate Baker MD Tissues: A - Stomach, NOS Procedures: H Pylori (initial) PHYSICIAN & INSTITUTION [place] [id number] SPECIMEN INFORMATION: Tissue Source: A - Antrum biopsy Clinical Info: GERD, esophagitis Specimen Number: [id number] CPT code: 50802 METHODOLOGY: Deparaffinized sections of prefer/formalin-fixed tissue or PAP/DQ stained slides are incubated with monoclonal/polyclonal antibodies/oligonucleotide probes. Localization is made via biotin free immunoperoxidase method. Appropriate controls are performed and reacted as expected. Results on target cell population are indicated in the following table: RESULTS: ANTIBODY / CLONE RESULT Block A H Pylori (polyclonal) negative These tests were developed and their performance characteristics determined by [facility]. They may not have been cleared or approved by the U.S. Food and Drug Administration. The FDA has determined that such clearance or approval is not necessary. INTERPRETATION: A. Antrum, biopsy: Negative for Helicobacter pylori organisms. SJ:karen 06/04/20
--- NOTE | 2020-06-01 11:45 | EGD_PTH ---
PATIENT: CULLEN CUEVA LOC: EN U#:[id number] AGE/SX: 65/F ROOM: RE06/01/[address]: Dr. Dony Gonzales MD : 1955 BED: DIS: 06/01/2020 SPEC #: [id number] RECD: 06/01/20 12:07 STATUS: ALTHEA HAFSA #: [id number] PEGGY: 06/01/20 11:[address]: Dony Gonzales DEPT: SURGICAL PATHOLOGY RECD BY: Eileen Beaulieu ENTERED: 06/01/20 13:24 SP TYPE: EGD BIOPSY OTHR DR: Dr. Nate Baker MD Tissues: A - Gastric mucous membrane B - Gastric mucous membrane C - Gastric fundus Procedures: Special Stain Group II Surgery Specimen Level IV Alcian Blue/PAS (control) HEADER OPERATION: [place] DIAGNOSIS: GERD, esophagitis TISSUE SUBMITTED: A - Antrum biopsy for histo and H. pylori, B - GE junction biopsy, C - Fundic polyp biopsy MICROSCOPIC DIAGNOSIS A. Antrum, biopsy: Mild gastritis. See microscopic description and comment. B. GE junction, biopsy: Fragments of gastroesophageal mucosa with mild chronic inflammation. Intestinal metaplasia (goblet cell metaplasia) not identified. See comment. C. Fundic polyp, biopsy: Fragments of fundic gland polyp. SJ:rg 06/04/20 COMMENT A. The results of immunohistochemistry for Helicobacter pylori will be reported separately ([id number]). B. Alcian blue/PAS stain with matched control is used in the evaluation of the specimen. MICROSCOPIC DESCRIPTION Slides are reviewed. A. The specimen shows fragments of gastric mucosa with chronic inflammatory cell infiltrates in the lamina propria consisting of lymphocytes and plasma cells, consistent with mild chronic gastritis. GROSS DESCRIPTION A - Received in fixative is one container labeled with the patient's name and designated antrum biopsy. The specimen consists of one irregular fragment of light may soft tissue that measures 0.5 x 0.3 x 0.1 cm. The specimen is totally submitted in one cassette. B - Received in fixative is one container labeled with the patient's name and designated GE junction biopsy. The specimen consists of multiple irregular fragments of light may soft tissue that in aggregate measure 1 x 0.2 x 0.1 cm. The specimen is totally submitted in one cassette. C - Received in fixative is one container labeled with the patient's name and designated fundic polyp biopsy. The specimen consists of two irregular fragments of light may soft tissue that in aggregate measure 0.6 x 0.3 x 0.1 cm. The specimen is totally submitted in one cassette. / SJ:karen 06/01/20 TC:3 CPT: 25503 x3, 07266
--- NOTE | 2020-06-01 11:52 | OP.EGD_ITS ---
Patient Name: Cathie Escudero Procedure Date: 06/01/2020 11:32 AM Date of : 1955 Age: 65 Procedure: Upper GI endoscopy Indications: Gastro-esophageal reflux disease Providers: Dony Gonzales MD Medicines: See the Anesthesia note for documentation of the administered medications Patient Profile: This is a 65 year old female. Refer to note in patient chart for documentation of history and physical. Complications: No immediate complications. Procedure: Pre-Anesthesia Assessment: - Prior to the procedure, a History and Physical was performed, and patient medications and allergies were reviewed. The patient's tolerance of previous anesthesia was also reviewed. The risks and benefits of the procedure and the sedation options and risks were discussed with the patient. All questions were answered, and informed consent was obtained. Prior Anticoagulants: The patient has taken no previous anticoagulant or antiplatelet agents. ASA Grade Assessment: III - A patient with severe systemic disease. After reviewing the risks and benefits, the patient was deemed in satisfactory condition to undergo the procedure. After obtaining informed consent, the endoscope was passed under direct vision. Throughout the procedure, the patient's blood pressure, pulse, and oxygen saturations were monitored continuously. The Endoscope was introduced through the mouth, and advanced to the second part of duodenum. The upper GI endoscopy was accomplished without difficulty. The patient tolerated the procedure well. Scope In: 11:42:56 AM Scope Out: 11:47:58 AM Total Procedure Duration Time 0 hours 5 minutes 2 seconds Findings: Non-severe esophagitis with no bleeding was found at the gastroesophageal junction. Biopsies were taken with a cold forceps for histology. A small hiatal hernia was present. Multiple small sessile polyps with no bleeding and no stigmata of recent bleeding were found on the greater curvature of the stomach. The polyp was removed with a jumbo cold forceps. Resection and retrieval were complete. Localized minimal inflammation characterized by erythema was found in the prepyloric region of the stomach. Biopsies were taken with a cold forceps for Helicobacter pylori testing. The examined duodenum was normal. No biopsies or other specimens were collected for this exam. Impression: - Non-severe reflux esophagitis. Biopsied. - Small hiatal hernia. - Multiple gastric polyps. Resected and retrieved. - Gastritis. Biopsied. - Normal examined duodenum. No specimens collected. Recommendation: - Discharge patient to home. - Resume previous diet. - Continue present medications. - Await pathology results. - Repeat upper endoscopy in 3 years for surveillance. - Telephone my office for pathology results in 1 week. Procedure Code(s): --- Professional --- 26132, Esophagogastroduodenoscopy, flexible, transoral; with biopsy, single or multiple Diagnosis Code(s): --- Professional --- K21.0, Gastro-esophageal reflux disease with esophagitis K44.9, Diaphragmatic hernia without obstruction or gangrene K31.7, Polyp of stomach and duodenum K29.70, Gastritis, unspecified, without bleeding CPT copyright 2017 [employer]. All rights reserved. The codes documented in this report are preliminary and upon option trader review may be revised to meet current compliance requirements. MD Dony Kaur MD 06/01/2020 11:52:03 AM This report has been signed electronically. Number of Addenda: 0 Note Initiated On: 06/01/2020 11:32 AM
--- NOTE | 2020-06-01 11:52 | OP.CCLET_ITS ---
06/01/2020 Nate Baker MD [address] [place] [id number] Re : Upper GI endoscopy procedure for Cathie Escudero Dear Dr. Baker This procedure was performed on Monday, June 01, 2020. My impressions and recommendations are as follows: Impressions : - Non-severe reflux esophagitis. Biopsied. - Small hiatal hernia. - Multiple gastric polyps. Resected and retrieved. - Gastritis. Biopsied. - Normal examined duodenum. No specimens collected. Recommendations : - Discharge patient to home. - Resume previous diet. - Continue present medications. - Await pathology results. - Repeat upper endoscopy in 3 years for surveillance. - Telephone my office for pathology results in 1 week. My findings are described in the full procedure note, which is enclosed. If I can be of further assistance, please feel free to contact me at Doctor phone number(s): , Fax: [phone], Work: . Sincerely, MD Dony Kaur MD 06/01/2020 11:52:03 AM This report has been signed electronically.
== END 2020-06-01 12:50 | disposition home or self-care (01) ==
LOC: EN 10:36
PROVIDERS: PCP Family Medicine; Referring Provider Family Medicine; Visit Provider Surgery
PROC: 0DJ08ZZ Inspection of Upper Intestinal Tract, Via Natural or Artificial Opening Endoscopic (ICD-10-PCS; CPT 43235; principal; 2020-06-01 11:40)
DX: K29.70 Gastritis, unspecified, without bleeding (principal); K21.00 Gastro-esophageal reflux disease with esophagitis, without bleeding; K44.9 Diaphragmatic hernia without obstruction or gangrene; K31.7 Polyp of stomach and duodenum; K22.70 Barrett's esophagus without dysplasia; E03.9 Hypothyroidism, unspecified; F32.9 Major depressive disorder, single episode, unspecified; E66.01 Morbid (severe) obesity due to excess calories; F41.9 Anxiety disorder, unspecified; E78.5 Hyperlipidemia, unspecified; Z68.42 Body mass index [BMI] 45.0-49.9, adult; Z20.828 Contact with and (suspected) exposure to other viral communicable diseases; Z79.899 Other long term (current) drug therapy
CPT/HCPCS: 43239; 87426; 88305; 88313; 88342; C9803; J7120; J2405

== ENCOUNTER → 2020-06-25 10:48 | Outpatient (CLI) | payer OTHER, MEDICARE, SELFPAY ==
[2020-06-25 09:58] VITALS: BMI 44.3
[2020-06-25 12:47] LABS: Absolute Lymphocyte Count 2.44 X10^3/uL (0.83-4.51); Absolute Neutrophil Count 3.5 X10^3/uL (2.0-7.7); Basophil# 0.05 X10^3/uL; Basophil% 0.7 % (0-1); Eosinophil# 0.25 X10^3/uL; Eosinophils% 3.6 % (0-5); Hematocrit 43.2 % (37-47); Hemoglobin 13.9 g/dL (12.0-15.0); Lymphocyte # 2.44 X10^3/ul (4.0); Lymphocyte % 35.6 % (19-41); Mean Corp Hgb Conc 32.2 g/dL (32-36); Mean Corpuscular Hgb 29.6 pg (27.0-32.0); Mean Corpuscular Volume 91.9 fL (81-99); Mean Platelet Vol. 9.7 fl (6.2-12.0); Monocyte# 0.62 X10^3/uL; NRBC Flagged by Analyzer 0 % (0-5); Neutrophil # 3.49 X10^3/uL (2.7-7.7); Platelet Count 298 K/mm3 (150-450); RBC Distribution Width CV 12.6 % (11.6-14.6); RBC Distribution Width SD 42.7 fl (35.1-43.9); White Blood Count 6.9 K/mm3 (4.4-11.0)
[2020-06-25 13:15] LABS: ALB/GLOB Ratio 0.9 RATIO (0.9-2.4); AST(SGOT) 28 U/L (15-37); Alanine Aminotransfer ALT/SGPT 35 U/L (13-56); Albumin, Serum 3.8 g/dL (3.2-5.0); Alkaline Phosphatase 128 U/L (45-117); Anion Gap 7 (5-15); BUN 20 mg/dL (7-18); BUN/Creat Ratio 21.1 RATIO (10-20); Calcium,Total 8.8 mg/dL (8.5-10.1); Chloride 108 mmol/L (98-107); Creatinine, Serum 0.95 mg/dL (0.55-1.02); EST Glomerular Filtration Rate 63 mL/min (>60); Est Glom Filt Rate - Afr Amer 76 mL/min (>60); Globulin 4.1 g/dL (2.2-4.2); Glucose 104 mg/dL (74-106); Protein, Total 7.9 g/dL (6.4-8.2); Sodium Level 138 mmol/L (136-145); Thyroid Stim Hormone (TSH) 2.69 uIU/mL (0.358-3.74)
== END ==
PROVIDERS: PCP Internal Medicine; Referring Provider Internal Medicine; Visit Provider Internal Medicine
DX: E03.9 Hypothyroidism, unspecified (principal); K21.9 Gastro-esophageal reflux disease without esophagitis
CPT/HCPCS: 36415; 80053; 84443; 85025

== ENCOUNTER → 2020-08-02 09:21 | Outpatient (CLI) | payer OTHER, MEDICARE, SELFPAY ==
[2020-06-25 09:58] VITALS: BMI 44.3
--- NOTE | 2020-08-02 09:24 | BI_ITS ---
MAMMOGRAPHY - BILATERAL SCREENING REASON FOR EXAM: Female, 65 years old. Routine annual screening examination. PERTINENT HISTORY: Non-contributory. TECHNIQUE: Digital bilateral breast hanane (3D mammographic acquisition) in the CC and MLO projections. 2-D mediolateral oblique (MLO) and craniocaudad (CC) views of both breasts were obtained. CAD: Full Field Digital Mammography with Computer Added Detection was performed. COMPARISON: Comparison is made with prior study dated 06/14/2014 and 11/26/2016. FINDINGS: Breast Composition: The breasts are heterogeneously dense, which may obscure small masses. There are no dominant masses or suspicious calcifications. Stable small benign appearing bilateral axillary lymph nodes. No other significant abnormalities are identified. There has been no significant change since the prior study. BI/SCRN MAMM (CAD)W/HANANE BILAT IMPRESSION: Stable bilateral screening mammogram. Yearly follow-up mammogram recommended. (A) ASSESSMENT CATEGORY: BIRADS Category 2: Benign. A letter regarding these results will be sent to the patient by the facility within 30 days. Approximately 10% of breast cancers are not detected by mammography. A normal mammogram should not delay biopsy of a clinically suspicious abnormality. [id number] Electronically Signed: Ad Conner MD at 11:04 EST , Service support ,
== END ==
PROVIDERS: PCP Internal Medicine; Referring Provider Internal Medicine; Visit Provider Internal Medicine
DX: Z78.0 Asymptomatic menopausal state (principal); Z12.31 Encounter for screening mammogram for malignant neoplasm of breast
CPT/HCPCS: 77063; 77067

== ENCOUNTER → 2020-08-15 09:50 | Outpatient (CLI) | payer OTHER, MEDICARE, SELFPAY ==
[2020-06-25 09:58] VITALS: BMI 44.3
--- NOTE | 2020-08-15 09:53 | BD_ITS ---
STUDY: DUAL ENERGY X-RAY ABSORPTIOMETRY / DXA REASON FOR EXAM: Female, 65 years old. Z780 TECHNIQUE: Bone Mineral Density (BMD) measurements of lumbar spine and bilateral hips were obtained. COMPARISON: None. FINDINGS: Lumbar Spine (L1-L4): g/cm2 (1.183) / T-score (0.1) / Z-score (1.7) Findings are suggestive of normal bone density with a low fracture risk. Left Femur Total: g/cm2 (1.180) / T-score (1.4) / Z-score (2.6) Left Femoral Neck: g/cm2 (1.140) / T-score (0.7) / Z-score (2.2) Right Femur Total: g/cm2 (1.173) / T-score (1.3) / Z-score (2.5) Right Femoral Neck: g/cm2 (1.178) / T-score (1.0) / Z-score (2.5) BD/Dexa Bone Density Study IMPRESSION: The patient is considered normal as outlined below according to World Kt Organization (WHO) criteria with a low fracture risk. Reference Information: The T-score is the number of standard deviations above or below the standard which is normal for young adults at their peak bone mineral density. The World Health Organization (WHO) interprets the T-scores as follows: Above -1 Normal bone density Between -1 and -2.5 Osteopenia Equal to / or below -2.5 Osteoporosis As a practical clinical guideline, osteopenia may be graded as follows: Mild -1 through -1.5 Moderate -1.6 through -2.0 Severe -2.1 through -2.4 The Z-score is the number of standard deviations above or below age-matched controls. A Z-score of less than -1.5 would be considered abnormal. References: 1. NIH Osteoporosis and Related Bone Diseases www osteo.org 2. International Society for Clinical Densitometry www iscd.org 3. National Osteoporosis Foundation www nof.org Electronically Signed: Ad Conner MD at 15:27 EST , Service support ,
== END ==
PROVIDERS: PCP Internal Medicine; Referring Provider Internal Medicine; Visit Provider Internal Medicine
DX: Z78.0 Asymptomatic menopausal state (principal)
CPT/HCPCS: 77080

== ENCOUNTER → 2020-11-06 13:51 | Outpatient (CLI) | payer OTHER, MEDICARE, SELFPAY ==
[2020-11-06 13:13] VITALS: BMI 44.3
[2020-11-06 15:47] LABS: Absolute Lymphocyte Count 1.67 X10^3/uL (0.83-4.51); Absolute Neutrophil Count 8.7 X10^3/uL (2.0-7.7); Basophil# 0.03 X10^3/uL; Basophil% 0.3 % (0-1); Eosinophil# 0.03 X10^3/uL; Eosinophils% 0.3 % (0-5); Hematocrit 41.1 % (37-47); Hemoglobin 13.4 g/dL (12.0-15.0); Lymphocyte # 1.67 X10^3/ul (0.83-4.51); Lymphocyte % 15.3 % (19-41); Mean Corp Hgb Conc 32.6 g/dL (32-36); Mean Corpuscular Hgb 29.8 pg (27.0-32.0); Mean Corpuscular Volume 91.3 fL (81-99); Monocyte# 0.43 X10^3/uL; Monocyte% 3.9 % (0-10); NRBC Flagged by Analyzer 0 % (0-5); Neutrophil # 8.74 X10^3/uL (2.7-7.7); Neutrophil % 79.8 % (47-70); Platelet Count 297 K/mm3 (150-450); RBC Distribution Width CV 13.3 % (11.6-14.6); RBC Distribution Width SD 45.1 fl (35.1-43.9); White Blood Count 10.9 K/mm3 (4.4-11.0)
[2020-11-06 16:28] LABS: BNP,B-Type NATRIURETIC PEPTIDE 12.1 pg/mL (0-100)
[2020-11-06 16:44] LABS: AST(SGOT) 22 U/L (15-37); Alanine Aminotransfer ALT/SGPT 26 U/L (13-56); Albumin, Serum 3.8 g/dL (3.2-5.0); Alkaline Phosphatase 119 U/L (45-117); Anion Gap 6 (5-15); BUN 18 mg/dL (7-18); BUN/Creat Ratio 18.2 RATIO (10-20); Calcium,Total 9.2 mg/dL (8.5-10.1); Chloride 106 mmol/L (98-107); Creatinine, Serum 0.99 mg/dL (0.55-1.02); EST Glomerular Filtration Rate 60 mL/min (>60); Est Glom Filt Rate - Afr Amer 73 mL/min (>60); Globulin 3.9 g/dL (2.2-4.2); Glucose 147 mg/dL (74-106); Potassium 3.9 mmol/L (3.5-5.1); Protein, Total 7.7 g/dL (6.4-8.2); Sodium Level 139 mmol/L (136-145)
== END ==
PROVIDERS: PCP Internal Medicine; Referring Provider Physician Assistant; Visit Provider Physician Assistant
DX: M79.89 Other specified soft tissue disorders (principal); R06.02 Shortness of breath
CPT/HCPCS: 36415; 80053; 83880; 85025

== ENCOUNTER → 2020-11-30 06:46 | Outpatient (CLI) | payer OTHER, MEDICARE, SELFPAY ==
[2020-11-06 13:13] VITALS: BMI 44.3
[2020-11-26 15:13] VITALS: BMI 44.3
--- NOTE | 2020-11-30 06:49 | EKG12_ITS ---
Test Reason : HTN,SOB Blood Pressure : / mmHG Vent. Rate : 069 BPM Atrial Rate : 069 BPM P-R Int : 144 ms QRS Dur : 096 ms QT Int : 432 ms P-R-T Axes : 036 024 041 degrees QTc Int : 462 ms Normal sinus rhythm Normal ECG Confirmed by GEOVANNI MARTINI, TOM ([id number]), research editor ANETA BOLES ([id number]) on 12/03/2020 10:56:06 A M Referred By: Joseph Smyth Confirmed By:LEE ANN GALARZA MD
--- NOTE | 2020-11-30 06:49 | ECHOD_ITS ---
Reason For Study: DYSPNEA/SOB Procedure This was a 2D Doppler, Color Flow transthoracic echocardiogram. The study was technically difficult. Due to body habitus. Exam performed in department. Left Ventricle Normal LV size. The estimated ejection fraction is 60 %. No evidence for diastolic dysfunction. No regional wall motion abnormalities noted. Right Ventricle Normal right ventricle. Normal systolic function. Atria The left atrium is mildly enlarged. Normal right atrium. No doppler evidence for ASD. Mitral Valve There is no mitral valve stenosis. Trivial mitral valve insufficiency. Tricuspid Valve There is no tricuspid stenosis. Trivial tricuspid valve insufficiency. Pulmonary artery systolic pressure is 30 mmHg. Aortic Valve Trisinus/trileaflet aortic valve. There is no aortic stenosis. No aortic valve insufficiency. Pulmonic Valve There is no pulmonic valvular stenosis. No pulmonic valve insufficiency. Great Vessels Normal aortic root. Pericardium/Pleural No pericardial effusion. MMode/2D Measurements & Calculations LVIDd: 5.1 cm IVSd: 1.0 cm Ao root diam: 2.9 cm LVIDs: 3.4 cm LVPWd: 1.2 cm RVDd: 3.2 cm FS: 31.9 % LAV(MOD-bp): 69.8 ml LA A4 area: 21.8 cm2 LA dimension(2D): 4.9 cm LAV(MOD-bp) Indexed: 29.0 ml/m2 LAV(MOD-sp2): 69.9 ml LAV(MOD-sp4): 69.9 ml RA A4 area: 14.5 cm2 Time Measurements MV dec time: 0.16 sec Doppler Measurements & Calculations MV E max kevin: 111.1 cm/sec Lat Peak E' Kevin: 12.3 cm/sec Med Peak E' Kevin: 10.4 cm/sec MV A max kevin: 93.4 cm/sec E/E' lat: 9.0 E/E' med: 10.7 MV E/A: 1.2 Ao V2 max: 143.7 cm/sec LV V1 max: 116.0 cm/sec MR max kevin: 495.2 cm/sec Ao max P.3 mmHg LV V1 max P.4 mmHg MR max P.1 mmHg PA V2 max: 111.8 cm/sec TR max kevin: 256.9 cm/sec TR max P.4 mmHg ECHO/Echo Complete Interpretation Summary The estimated ejection fraction is 60 %. No evidence for diastolic dysfunction. The left atrium is mildly enlarged. Trivial mitral valve insufficiency. Ordering Physician: Elizabeth Ham Referring Physician: Joseph Smyth Performed By: Christine Oseguera RDCS, RVT
--- NOTE | 2020-11-30 13:31 | PFT ---
INTRODUCTION: The patient is a 65-year-old female that presents for pulmonary function studies secondary to a diagnosis of dyspnea. Respiratory therapy reports good patient effort. Bronchodilators were used during testing. INTERPRETATION: Forced expiration spirometry demonstrates no evidence of a large airways obstructive ventilatory defect. There is no significant response to aerosolized bronchodilators. Spirograms are of good quality and plateau normally. The respiratory flow volume loop is normal. Body plethysmography was performed and reveals lung volumes to be within normal limits. Diffusing capacity by single breath CO is also within normal limits. IMPRESSION: Grossly normal pulmonary function studies.
== END ==
LOC: CVS 06:47
PROVIDERS: PCP Internal Medicine; Referring Provider Internal Medicine; Visit Provider Internal Medicine
DX: R06.00 Dyspnea, unspecified (principal); R06.02 Shortness of breath; I10 Essential (primary) hypertension; Z86.69 Personal history of other diseases of the nervous system and sense organs; R06.01 Orthopnea
CPT/HCPCS: 93005; 93306; 94060; 94726; 94729

== ENCOUNTER → 2020-12-05 14:13 | Outpatient (CLI) | payer OTHER, MEDICARE, SELFPAY ==
[2020-12-05 13:39] VITALS: BMI 44.3
== END ==
PROVIDERS: PCP Internal Medicine; Referring Provider Internal Medicine; Visit Provider Internal Medicine
DX: R07.9 Chest pain, unspecified (principal)
CPT/HCPCS: 36415; 84484

== ENCOUNTER 2020-12-05 15:58 | Observation (INO) | payer OTHER, MEDICARE, SELFPAY ==
[2020-12-05] VITALS (11 sets, daily range): BP systolic 120–182; BP diastolic 64–114; PULSE 73–81; RESP 14–23; TEMP 36.6–36.9; O2SAT 96–98; BMI 44.3; BMI 48.3; BMI 46.3
--- NOTE | 2020-12-05 16:33 | EKG12_ITS ---
Test Reason : ELEVATED TROPONIN Blood Pressure : / mmHG Vent. Rate : 072 BPM Atrial Rate : 072 BPM P-R Int : 128 ms QRS Dur : 094 ms QT Int : 424 ms P-R-T Axes : 045 037 056 degrees QTc Int : 464 ms Normal sinus rhythm Normal ECG Confirmed by YUAN MARTINI, SANDY ([id number]), features editor ANETA BOLES ([id number]) on 12/07/2020 12:47:49 PM Referred By: PERLITA Confirmed By:SANDY BOLDEN MD
--- NOTE | 2020-12-05 17:20 | RAD_ITS ---
STUDY: X-RAY CHEST REASON FOR EXAM: Female, 65 years old. chest pain TECHNIQUE: Single AP portable view of the chest. COMPARISON: 11/07/2020 FINDINGS: The lungs are clear and expanded. There is no demonstrated pleural abnormality. Normal size heart. Normal mediastinum and ozzy. Normal visualized pulmonary arteries. Normal visualized aortic arch and descending thoracic aorta. Normal visualized thoracic spine. Normal visualized ribs, clavicles, and shoulders. There is no demonstrated abnormality of the visualized soft tissue structures of the upper abdomen. RAD/Chest 1 View (Portable) IMPRESSION: No evidence of acute cardiopulmonary process. Electronically Signed: Pietro Toure DO at 17:43 EDT , Service support ,
[2020-12-05 17:22] LABS: Absolute Lymphocyte Count 3.85 X10^3/uL (0.83-4.51); Absolute Neutrophil Count 12.7 X10^3/uL (2.0-7.7); Basophil# 0.02 X10^3/uL; Basophil% 0.1 % (0-1); Eosinophil# 0.42 X10^3/uL; Eosinophils% 2.3 % (0-5); Hematocrit 46.7 % (37-47); Hemoglobin 15.4 g/dL (12.0-15.0); Lymphocyte # 3.85 X10^3/ul (0.83-4.51); Lymphocyte % 20.8 % (19-41); Mean Corpuscular Hgb 30.1 pg (27.0-32.0); Mean Corpuscular Volume 91.4 fL (81-99); Mean Platelet Vol. 9.4 fl (6.2-12.0); Monocyte% 7.6 % (0-10); NRBC Flagged by Analyzer 0 % (0-5); Neutrophil # 12.71 X10^3/uL (2.7-7.7); Neutrophil % 68.6 % (47-70); Platelet Count 342 K/mm3 (150-450); RBC Distribution Width CV 13.6 % (11.6-14.6); Red Blood Count 5.11 M/mm3 (4.2-5.4); White Blood Count 18.5 K/mm3 (4.4-11.0)
[2020-12-05 17:41] LABS: Anion Gap 7 (5-15); BUN 13 mg/dL (7-18); BUN/Creat Ratio 12.7 RATIO (10-20); Calcium,Total 9.2 mg/dL (8.5-10.1); Chloride 101 mmol/L (98-107); Creatinine, Serum 1.02 mg/dL (0.55-1.02); EST Glomerular Filtration Rate 58 mL/min (>60); Est Glom Filt Rate - Afr Amer 70 mL/min (>60); Estimated Creatinine Clearance 53.47 ml/min; Glucose 104 mg/dL (74-106); Potassium 3.8 mmol/L (3.5-5.1); Sodium Level 138 mmol/L (136-145); Troponin-I HS 22.8 pg/mL (3.0-53.7)
--- NOTE | 2020-12-05 17:49 | EDS_ITS ---
HPI History of Present Illness Chief Complaint: Abn Labs Detail of Chief Complaint: Chest pain that she has had since 3:30 AM Informant: patient Onset/Context/Timing Onset: Today Timing: Continuous Current Severity: 07/25 Maximum Severity: 11/22 Narrative Narrative: Patient presents with chest pain that started this morning around 3:30 AM that woke her up from sleep. Patient states that she had a hard time falling back asleep. She described like a band that emanated from the center of her chest and wrapped around both sides of her chest. She denies any nausea or vomiting or diaphoresis with it. Patient also describes some shortness of breath that she has had for about 6 or 9 months especially with exertion. Patient states that she had an echocardiogram as well as pulmonary function test and an EKG done 5 days ago and she was told she may have some pulmonary hypertension. Patient has significant family history of heart disease and that her father at age 39 of a massive PA and her brother in his 60s and he had had multiple heart surgeries. Patient was a smoker but quit in 1984. Prior similar symptoms: No [facility] Medical History (Updated 12/05/20 @ 17:[address] Irma Nicholson, DO) Anxiety Arthritis Back problem Barretts esophagus Chest congestion Chest pain Cough Depression (emotion) Diverticulitis GERD (gastroesophageal reflux disease) History of gallstones Hyperlipemia Hypertension Hypothyroidism Morbid obesity with BMI of 40.0-44.9, adult Respiratory insufficiency Routine health maintenance Shortness of breath Shortness of breath Sinusitis Sleep apnea Home Medications omeprazole 20 mg PO QHS 02/09/14 [History Last Taken 02/11/14] pramipexole 0.25 - 0.75 mg PO QHS 08/13/18 [History Last Taken Unknown] mecobalamin (vitamin B12) 5,000 mcg disintegrating tablet 5,000 mcg PO DAILY tab 01/14/19 [History Last Taken Unknown] calcium carbonate 500 mg calcium (1,250 mg) chewable tablet 1,000 mg PO DAILY tab 06/22/20 [History Last Taken Unknown] cholecalciferol (vitamin D3) 25 mcg (1,000 unit) chewable tablet 2,000 unit PO DAILY tab 06/22/20 [History Last Taken Unknown] rosuvastatin 40 mg tablet 40 mg PO DAILY 06/25/20 [History Last Taken Unknown] trazodone 50 mg tablet 50 - 150 mg PO QHS PRN tab 06/25/20 [History Last Taken Unknown] levothyroxine 150 mcg tablet 150 mcg PO DAILY #90 tablet 09/24/20 [Rx Last Taken Unknown] albuterol sulfate 90 mcg/actuation aerosol inhaler 1 - 2 puff INHALATION Q6H PRN #8.5 g 11/06/20 [Rx Last Taken Unknown] fluoxetine 20 mg capsule 20 mg PO BID #60 cap 11/13/20 [Rx Last Taken Unknown] amoxicillin 875 mg-potassium clavulanate 125 mg tablet 1 tab PO BID 21 Days #42 tab 11/26/20 [Rx Last Taken Unknown] ferrous gluconate 324 mg PO DAILY 12/05/20 [History Last Taken Unknown] fluconazole 150 mg PO Q3D PRN 12/05/20 [History Last Taken Unknown] montelukast [Singulair] 10 mg PO QHS PRN PRN 12/05/20 [History Last Taken Unknown] Allergy/AdvReac Type Severity Reaction Status Date / Time pravastatin [From Pravachol] Allergy Mild itching Verified 12/05/20 16:02 ketoprofen [From Orudis] Allergy Nausea/Vom/ Verified 12/05/20 16:02 Diarrhea Family History Sister CAD (coronary artery disease) Thyroid disorder Brother CAD (coronary artery disease) Heart disease Myocardial infarction Alcoholism Angina at rest Mother Diabetes Myocardial infarction Father Hypertension Heart disease Myocardial infarction Angina at rest Thyroid disorder Grandfather Alcoholism Surgical History History of cholecystectomy (~1998) History of colonoscopy History of esophagogastroduodenoscopy (EGD) (~2015) History of hysterectomy (~1998) Social History (Updated 12/05/20 @ 13:38 by Mohini Mendoza) Smoking Status: Former smoker quit date: 06/15/84 Tobacco: How many years used: 15 Electronic Cigarette Use: not used how long ago did patient quit smokin years second hand exposure: No alcohol intake: current alcohol intake frequency: holidays/special occasions only Alcohol type: wine substance use type: does not use what type of physical activity do you participate in: none ROS ROS ED Constitutional Constitutional ED: Reports systems reviewed and no addt'l complaints, except as documented; Denies body ache(s), change in weight or chills Eyes Eyes: Denies acute decrease in peripheral vision, change in vision, double vision or loss of vision ENT ENT ED: Reports none; Denies ear pain, lip swelling, loss taste/smell, neck pain, otalgia or sore throat Cardiovascular Cardiovascular: Reports none and chest pain; Denies abdominal pain, chest pain with activity, leg edema, lightheadedness, palpitations, rapid heart rate or syncope Respiratory/Chest Respiratory/Chest: Reports none, dyspnea and dyspnea on exertion; Denies change in mental status, dry cough, hemoptysis, shortness of breath at rest or shortness of breath with exertion Gastrointestinal Gastrointestinal: Reports none; Denies abdominal pain, change in stool character, diarrhea, hematemesis, hematochezia, melena, rectal bleeding or vomiting Genitourinary Genitourinary ED: Reports none; Denies abdominal discomfort, anuria, dysuria, genital pain or polyuria Musculoskeletal Musculoskeletal: Reports none; Denies arthralgias, back pain, difficulty walking, extremity pain, muscle weakness or myalgias Integumentary Reports none; Denies abscess or rash Neurologic Neurologic: Reports none; Denies abnormal gait, confusion, focal weakness, frequent falls, headache(s), loss of vision, numbness, paresthesias, radicular pain, vertigo or weakness Psychiatric Psychiatric: Reports systems reviewed and no addt'l complaints, except as documented and none; Denies behavioral changes, confusion, difficulty concentrating, hallucinations, suicidal ideation, tactile hallucinations or visual hallucinations Endocrine Endocrinology: Denies none, cold intolerance, excessive sweating, fatigue or heat intolerance Hematologic/Lymphatic Hematologic/Lymphatic: Reports none; Denies anemia, easy bleeding or easy bruising Allergic/Immunologic Allergic/Immunologic ED: Denies as per HPI, none, lip swelling, mouth swelling, throat swelling, tongue swelling or hives EXAM Physical Exam Const Vital Signs: 12/05/20 15:59 12/05/20 17:29 12/05/20 17:31 Temperature 98.4 F Temperature Source Temporal Pulse Rate 75 78 Respiratory Rate 14 18 Respiratory Effort Normal Respiratory Pattern Normal Blood Pressure 152/104 H 167/70 H Blood Pressure Mean 120 102 Pulse Ox 98 96 Oxygen Delivery Method Room Air Room Air Positive well nourished and well developed General Appearance ED: well developed and NAD HEENT Reports TM's clear and moist mucous membranes normocephalic and atraumatic; Negative for trauma or tenderness Tympanic Membrane ED: Yes TM's clear Eyes PERRL and EOMs intact bilaterally General Eye ED: Negative for pale conjunctiva or scleral icterus Neck no lymphadenopathy, supple and no JVD General: Negative for tenderness Chest Wall inspection of chest normal and palpation of chest normal Chest: Negative for tenderness Resp normal respiratory effort and clear to auscultation bilaterally Effort and Inspection: Negative for respiratory distress or pain with movement Auscultation: Negative for rhonchi, wheezes or diminished lung sounds Cardio regular rate, regular rhythm, S1 normal heart sound, S2 normal heart sound and no murmurs Peripheral Pulses: pulses 2+ throughout GI normal to inspection, nondistended, normoactive bowel sounds, soft to palpation, non-tender, non-distended and no masses Back/Spine no CVA tenderness and no thoracic nor lumbar tenderness Extremity normal to inspection General Extremety ED: Negative for edema General Extremity: Negative for edema Neuro oriented x3, CN's II-XII intact bilaterally, no sensory deficits noted and gait normal Sensorium / Orientation: awake, alert, oriented to person, oriented to place and oriented to time Motor Exam: strength 5/5 throughout and strength abnormal Psych mental status grossly normal Skin no rashes or lesions noted and no wounds MDM MDM MDM Narrative Medical decision making narrative: Patient has a heart score of 6. Her delta troponin had a change from 21.0-22.8. Case will be discussed with hospitalist will evaluate patient for admission. On arrival she was placed on a pharmaceutical service representative and was given aspirin and had a inch of Nitropaste placed to the anterior chest wall. Lab Data Labs: Laboratory Results - last 24 hr 12/05/20 12/05/20 17:10 17:10 WBC 18.5 H RBC 5.11 Hgb 15.4 H Hct 46.7 MCV 91.4 MCH 30.1 MCHC 33.0 RDW Std Deviation 46.0 H RDW Coeff of Giancarlo 13.6 Plt Count 342 MPV 9.4 Immature Gran % (Auto) 0.600 Neut % (Auto) 68.6 Lymph % (Auto) 20.8 [place] % (Auto) 7.6 Eos % (Auto) 2.3 Baso % (Auto) 0.1 Absolute Neuts (auto) 12.7 H Absolute Lymphs (auto) 3.85 Nucleated RBC % 0 Sodium 138 Potassium 3.8 Chloride 101 Carbon Dioxide 30.0 Anion Gap 7 BUN 13 Creatinine 1.02 Estim Creat Clear Calc 53.47 Est GFR (MDRD) Af Amer 70 Est GFR (MDRD) Non-Af 58 L BUN/Creatinine Ratio 12.7 Glucose 104 Calcium 9.2 Troponin I High Sens 22.8 Radiography Chest X-Ray - ED: 1 View Diagnostic Testing: Radiology Impression Chest X-Ray 12/05/20 17:20 IMPRESSION: No evidence of acute cardiopulmonary process. Electronically Signed: Pietro Toure DO at 17:43 EDT , Service support , 1 view chest x-ray obtained interpreted by myself as no acute disease process. Radiology in agreement. EKG Initial EKG: Attestation: I personally reviewed and interpreted this EKG as follows: Comments: Sinus rhythm with a ventricular rate of 72 bpm with no acute ST segment changes. Discharge Plan Dx/Rx/DC Orders Clinical Impression: Chest pain Disposition Disposition: Acute Care Hospital [facility]
--- NOTE | 2020-12-05 18:07 | NURSING ---
PCU OBS HERMELINDA MANRIQUE
--- NOTE | 2020-12-05 18:16 | PCM.HP.STD ---
Documented by User: Deb Mckeon NP, [employer]ENTICE-C 12/05/20 18:28 HPI - General General Date of Admission: 12/05/20 HPI Narrative CULLEN CUEVA, is a 65 F who presents to the emergency room due to chest pain. Patient states she woke up around 330 this morning with chest pressure/heaviness which wrapped around her chest to her back. She denies other pain radiation. She states it felt like someone was squeezing her. She denies associated shortness of breath at rest, nausea, diaphoresis. Her symptoms continued intermittently throughout the day and she made an appoint with her primary care provider who referred her to the emergency room for further evaluation. Patient reports she has had dyspnea on exertion for the past several months which has recently worsened. She states she has been undergoing evaluation for her lungs and has been on a course of antibiotics, steroids, albuterol aerosols and also recently underwent pulmonary function test. Per records, PFTs appear normal. Patient attributed her shortness of breath due to her age and being overweight. Patient also notes significant lower extremity swelling which began over the past month. She has been wearing compression stockings which has reduced her symptoms some. She reports her father from a massive heart attack at the age of thirty[age]nine. She is a past medical history of hyperlipidemia, hypothyroidism, morbid obesity, depression, GERD. [facility] Medical History (Updated 12/05/20 @ 19:[address] Joseph Smyth MD) Anxiety Arthritis Back problem Barretts esophagus Chest congestion Chest pain Cough Depression (emotion) Diverticulitis Epigastric abdominal tenderness Family history of coronary artery disease GERD (gastroesophageal reflux disease) History of gallstones Hyperlipemia Hypertension Hypothyroidism Morbid obesity with BMI of 40.0-44.9, adult Respiratory insufficiency Routine health maintenance Shortness of breath Shortness of breath Sinusitis Sleep apnea Home Medications omeprazole 20 mg PO DAILY 02/09/14 [History Last Taken 12/05/20] pramipexole 0.25 - 0.75 mg PO QHS 08/13/18 [History Last Taken 12/04/20] calcium carbonate 500 mg calcium (1,250 mg) chewable tablet 1,000 mg PO DAILY tab 06/22/20 [History Last Taken 12/05/20] cholecalciferol (vitamin D3) 25 mcg (1,000 unit) chewable tablet 2,000 unit PO DAILY tab 06/22/20 [History Last Taken 12/05/20] rosuvastatin 40 mg tablet 40 mg PO DAILY 06/25/20 [History Last Taken 12/05/20] trazodone 50 mg tablet 50 - 150 mg PO QHS PRN tab 06/25/20 [History Last Taken 12/04/20] levothyroxine 150 mcg tablet 150 mcg PO DAILY #90 tablet 09/24/20 [Rx Last Taken 12/05/20] albuterol sulfate 90 mcg/actuation aerosol inhaler 1 - 2 puff INHALATION Q6H PRN #8.5 g 11/06/20 [Rx Last Taken Unknown] fluoxetine 20 mg capsule 20 mg PO BID #60 cap 11/13/20 [Rx Last Taken 12/05/20] amoxicillin 875 mg-potassium clavulanate 125 mg tablet 1 tab PO BID 21 Days #42 tab 11/26/20 [Rx Last Taken 12/05/20] ferrous gluconate 324 mg PO DAILY 12/05/20 [History Last Taken 12/05/20] fluconazole 150 mg PO Q3D PRN 12/05/20 [History Last Taken Unknown] mecobalamin (vitamin B12) 5,000 mcg PO DAILY 12/05/20 [History Last Taken 12/05/20] montelukast [Singulair] 10 mg PO QHS PRN PRN 12/05/20 [History Last Taken Unknown] Allergy/AdvReac Type Severity Reaction Status Date / Time pravastatin [From Pravachol] Allergy Mild itching Verified 12/05/20 16:02 ketoprofen [From Orudis] Allergy Nausea/Vom/ Verified 12/05/20 16:02 Diarrhea Family History Sister CAD (coronary artery disease) Thyroid disorder Brother CAD (coronary artery disease) Heart disease Myocardial infarction Alcoholism Angina at rest Mother Diabetes Myocardial infarction Father Hypertension Heart disease Myocardial infarction Angina at rest Thyroid disorder Grandfather Alcoholism Surgical History History of cholecystectomy (~1998) History of colonoscopy History of esophagogastroduodenoscopy (EGD) (~2015) History of hysterectomy (~1998) Social History Smoking Status: Former smoker quit date: 06/15/84 Tobacco: How many years used: 15 Electronic Cigarette Use: not used how long ago did patient quit smokin years second hand exposure: No alcohol intake: current alcohol intake frequency: holidays/special occasions only Alcohol type: wine substance use type: does not use what type of physical activity do you participate in: none ROS Constitutional Constitutional: Denies change in weight, chills, fatigue, fever(s) or weakness Cardiovascular Cardiovascular: Reports chest pain and edema; Denies lightheadedness, palpitations or syncope Respiratory/Chest Respiratory/Chest: Reports dyspnea and shortness of breath with exertion; Denies cough, productive cough, shortness of breath at rest or wheezing Gastrointestinal Gastrointestinal: Denies abdominal pain, constipation, diarrhea, nausea or vomiting Genitourinary Genitourinary: Denies burning urination, difficulty urinating, dysuria, hematuria, urinary frequency, urinary incontinence or urinary urgency Musculoskeletal Musculoskeletal: Denies back pain, joint pain or muscle weakness Integumentary Integumentary: Denies erythema, lesions, rash or wounds Neurologic Neurologic: Denies abnormal speech, confusion, dizziness, focal weakness, numbness, paresthesias, seizure-like activity or syncope Psychiatric Psychiatric: Denies anxiety or depression Hematologic/Lymphatic Hematologic/Lymphatic: Denies anemia, easy bleeding or easy bruising Allergic/Immunologic Allergic/Immunologic: Denies hives or asthma Vital Signs Vital Signs Vital Signs: 12/05/20 15:59 12/05/20 17:29 12/05/20 17:31 Temperature 98.4 F Temperature Source Temporal Pulse Rate 75 78 Respiratory Rate 14 18 Respiratory Effort Normal Respiratory Pattern Normal Blood Pressure 152/104 H 167/70 H Blood Pressure Mean 120 102 Pulse Ox 98 96 Oxygen Delivery Method Room Air Room Air Weight Weight: 308 lb 10.354 oz Body Mass Index (BMI) 48.3 Physical Exam Const alert, oriented x3 and no apparent distress Orientation / Consciousness: awake, oriented to person, oriented to place and oriented to time HEENT normocephalic and moist oral mucous membranes Eyes PERRL, EOMs intact bilaterally and conjunctivae normal Neck no lymphadenopathy Resp normal respiratory effort and clear to auscultation bilaterally Cardio regular rate, regular rhythm and no murmurs Peripheral Pulses: pulses 2+ throughout GI normal to inspection, nondistended, normoactive bowel sounds, non-tender and non-distended Extremity normal to inspection Skin no rashes or lesions noted Lesions: no lesions Rashes: no rashes Trauma: no lacerations or abrasions Neuro CN's II-XII intact bilaterally, no focal motor deficits, no sensory deficits noted and deep tendon reflexes 2+ bilaterally Psych mental status grossly normal and affect normal Results Lab / Micro Data Result Diagrams: 12/05/20 17:10 12/05/20 17:10 Labs: Laboratory Results - last 24 hr 12/05/20 12/05/20 17:10 17:10 WBC 18.5 H RBC 5.11 Hgb 15.4 H Hct 46.7 MCV 91.4 MCH 30.1 MCHC 33.0 RDW Std Deviation 46.0 H RDW Coeff of Giancarlo 13.6 Plt Count 342 MPV 9.4 Immature Gran % (Auto) 0.600 Neut % (Auto) 68.6 Lymph % (Auto) 20.8 [place] % (Auto) 7.6 Eos % (Auto) 2.3 Baso % (Auto) 0.1 Absolute Neuts (auto) 12.7 H Absolute Lymphs (auto) 3.85 Nucleated RBC % 0 Sodium 138 Potassium 3.8 Chloride 101 Carbon Dioxide 30.0 Anion Gap 7 BUN 13 Creatinine 1.02 Estim Creat Clear Calc 53.47 Est GFR (MDRD) Af Amer 70 Est GFR (MDRD) Non-Af 58 L BUN/Creatinine Ratio 12.7 Glucose 104 Calcium 9.2 Troponin I High Sens 22.8 Radiology Impression Chest X-Ray 12/05/20 17:20 IMPRESSION: No evidence of acute cardiopulmonary process. Electronically Signed: Pietro Toure DO at 17:43 EDT , Service support , Assessment & Plan Assessment/Plan (1) Chest pain: PLAN: 1. Chest pain, dyspnea on exertion, lower extremity swelling-has undergone recent PFTs 11/30/2020 which were normal. Echocardiogram 11/30/2020 demonstrated an EF of 60%, no evidence of diastolic dysfunction. Initial enzymes normal. Trend enzymes. Repeat EKG in a.m. Aspirin. If enzymes remain normal, plan for stress test in a.m. 2. Hyperlipidemia-continue statin. 3. Hypothyroidism-continue Synthroid. 4. Morbid obesity- encouraged diet and lifestyle modifications. 5. Depression-on fluoxetine, trazodone. 6. GERD-continue PPI. 7. Leukocytosis-suspect secondary to recent steroid use. Repeat CBC. DVT prophylaxis This patient was seen by HILARY Aguiar under the supervision of Dr. Perez. Documented by User: Dr. Autumn Perez MD 12/05/20 19:40 HPI - General General Date of Admission: 12/05/20 [facility] Medical History (Updated 12/05/20 @ 19:[address] Joseph Smyth MD) Anxiety Arthritis Back problem Barretts esophagus Chest congestion Chest pain Cough Depression (emotion) Diverticulitis Epigastric abdominal tenderness Family history of coronary artery disease GERD (gastroesophageal reflux disease) History of gallstones Hyperlipemia Hypertension Hypothyroidism Morbid obesity with BMI of 40.0-44.9, adult Respiratory insufficiency Routine health maintenance Shortness of breath Shortness of breath Sinusitis Sleep apnea Home Medications omeprazole 20 mg PO DAILY 02/09/14 [History Last Taken 12/05/20] pramipexole 0.25 - 0.75 mg PO QHS 08/13/18 [History Last Taken 12/04/20] calcium carbonate 500 mg calcium (1,250 mg) chewable tablet 1,000 mg PO DAILY tab 06/22/20 [History Last Taken 12/05/20] cholecalciferol (vitamin D3) 25 mcg (1,000 unit) chewable tablet 2,000 unit PO DAILY tab 06/22/20 [History Last Taken 12/05/20] rosuvastatin 40 mg tablet 40 mg PO DAILY 06/25/20 [History Last Taken 12/05/20] trazodone 50 mg tablet 50 - 150 mg PO QHS PRN tab 06/25/20 [History Last Taken 12/04/20] levothyroxine 150 mcg tablet 150 mcg PO DAILY #90 tablet 09/24/20 [Rx Last Taken 12/05/20] albuterol sulfate 90 mcg/actuation aerosol inhaler 1 - 2 puff INHALATION Q6H PRN #8.5 g 11/06/20 [Rx Last Taken Unknown] fluoxetine 20 mg capsule 20 mg PO BID #60 cap 11/13/20 [Rx Last Taken 12/05/20] amoxicillin 875 mg-potassium clavulanate 125 mg tablet 1 tab PO BID 21 Days #42 tab 11/26/20 [Rx Last Taken 12/05/20] ferrous gluconate 324 mg PO DAILY 12/05/20 [History Last Taken 12/05/20] fluconazole 150 mg PO Q3D PRN 12/05/20 [History Last Taken Unknown] mecobalamin (vitamin B12) 5,000 mcg PO DAILY 12/05/20 [History Last Taken 12/05/20] montelukast [Singulair] 10 mg PO QHS PRN PRN 12/05/20 [History Last Taken Unknown] Allergy/AdvReac Type Severity Reaction Status Date / Time pravastatin [From Pravachol] Allergy Mild itching Verified 12/05/20 16:02 ketoprofen [From Orudis] Allergy Nausea/Vom/ Verified 12/05/20 16:02 Diarrhea Family History Sister CAD (coronary artery disease) Thyroid disorder Brother CAD (coronary artery disease) Heart disease Myocardial infarction Alcoholism Angina at rest Mother Diabetes Myocardial infarction Father Hypertension Heart disease Myocardial infarction Angina at rest Thyroid disorder Grandfather Alcoholism Surgical History (Reviewed 12/05/20 @ 18:21 by Deb Mckeon [employer] APPRENTICE, [employer] APPRENTICE-C) History of cholecystectomy (~1998) History of colonoscopy History of esophagogastroduodenoscopy (EGD) (~2015) History of hysterectomy (~1998) Social History Smoking Status: Former smoker quit date: 06/15/84 Tobacco: How many years used: 15 Electronic Cigarette Use: not used how long ago did patient quit smokin years second hand exposure: No alcohol intake: current alcohol intake frequency: holidays/special occasions only Alcohol type: wine substance use type: does not use what type of physical activity do you participate in: none Results Lab / Micro Data Result Diagrams: 12/05/20 17:10 12/05/20 17:10 Charges/Coding Addendum Addendum: Hospitalist note: I am seeing this patient in conjunction with Deb Mckeon. I independently seen and examined the patient. History and physical, laboratory data and imaging studies reviewed and I concur with the above admission and treatment plan. Patient presented to the emergency room because of chest pain that was started today when she was at work, described as squeezing pain around her chest, not radiating, and no other associated symptoms. She states that she has been having exertional shortness of breath over the last 6 to 9 months and she underwent extensive work-up as outpatient including PFTs and echocardiogram. Currently, she is on 21-day course of Augmentin and she received a course of prednisone few days ago. In the emergency department, her vital signs were stable. Her routine blood work was remarkable for leukocytosis, otherwise normal. EKG revealed normal sinus rhythm without evidence of acute ischemic changes. Troponin was negative. Chest x-ray showed no acute findings. She is being admitted for chest pain for evaluation. - Physical Exam General: Alert, Oriented x3, Cooperative, No apparent distress. HEENT: Atraumatic, PERRLA, EOMI. Neck: Supple, No JVD, Negative Carotid Bruits, Trachea Midline, Thyroid Normal. Lungs: Clear to auscultation, Normal air movement, No rhonchi, No wheeze, No rales. Cardiovascular: Regular rate, Regular Rhythm, Normal S1, Normal S2, PMI Normal. Abdomen: Bowel Sounds Present, Soft, Non Tender, Non-Distended, No Hepato-splenomegaly. Extremities: No clubbing, No cyanosis, No edema Skin: No rashes, No breakdown Neurological: Neuro grossly intact Vital Signs vital signs are stable. Assessment and plan: #1 chest pain/probable stable angina: Initial EKG and troponin were negative. Chest x-ray showed no acute findings. She had PFT as outpatient recently which was unremarkable. Echocardiogram also on November, reviewed EF 60%. She does have leukocytosis likely because of recent steroid use. Plan: Admit to PCU for observation, cardiac monitoring, serial cardiac enzymes, nuclear stress test tomorrow morning if cardiac enzymes are negative, start baby aspirin, sublingual nitro as needed, repeat CBC and BMP tomorrow morning. #2 other chronic medical problems: Stable, continue medications as above. This note was generated with [employer] dictation software. It may contain incorrect words, spelling, and punctuation that were not noted in checking the note before signing. Visit Charges OBSV E&M: 52841 Initial observation care L3
[2020-12-05] MEDS: Nitroglycerin Oint 1 INCH PACKET TRANSDERM. (18:30)
[2020-12-05] MEDS: Aspirin 81 MG TAB.CHEW 324 MG PO (18:32)
[2020-12-05] MEDS: 0.9% Normal Saline 1,000 ML 150 ML IV (18:34)
[2020-12-05 19:57] LABS: Troponin-I HS 21.2 pg/mL (3.0-53.7)
[2020-12-05] MEDS: Nitroglycerin (INPATIENT USE) 0.4 MG TAB.SUBL SL (21:48)
[2020-12-05] MEDS: Zolpidem Tartrate 5 MG Tablet PO (22:02)
--- NOTE | 2020-12-05 22:14 | EKG12_ITS ---
Test Reason : CP Blood Pressure : / mmHG Vent. Rate : 073 BPM Atrial Rate : 073 BPM P-R Int : 144 ms QRS Dur : 092 ms QT Int : 430 ms P-R-T Axes : 055 032 049 degrees QTc Int : 473 ms Normal sinus rhythm Normal ECG Confirmed by ANJUM MARTINI, YONI ([id number]), photographic editor ANETA BOLES ([id number]) on 12/07/2020 11:37:26 AM Referred By: DR MANRIQUE Confirmed By:YONI VALERO MD
[2020-12-05] MEDS: Pramipexole Di-HCl 0.25 MG Tablet PO (22:29)
[2020-12-06] VITALS (14 sets, daily range): BP systolic 116–140; BP diastolic 57–84; PULSE 62–81; RESP 12–18; TEMP 36.6–36.8; O2SAT 93–97
[2020-12-06 01:33] LABS: Troponin-I HS 17.3 pg/mL (3.0-53.7)
[2020-12-06] MEDS: Aspirin 81 MG TAB.CHEW PO (06:11)
[2020-12-06] MEDS: Levothyroxine 150 MCG Tablet PO (06:11)
[2020-12-06 07:04] LABS: Absolute Lymphocyte Count 3.11 X10^3/uL (0.83-4.51); Absolute Neutrophil Count 10.2 X10^3/uL (2.0-7.7); Basophil# 0.02 X10^3/uL; Basophil% 0.1 % (0-1); Eosinophil# 0.65 X10^3/uL; Eosinophils% 4.3 % (0-5); Hematocrit 41.2 % (37-47); Hemoglobin 13.8 g/dL (12.0-15.0); Lymphocyte # 3.11 X10^3/ul (0.83-4.51); Lymphocyte % 20.4 % (19-41); Mean Corp Hgb Conc 33.5 g/dL (32-36); Mean Corpuscular Hgb 30.7 pg (27.0-32.0); Mean Corpuscular Volume 91.6 fL (81-99); Mean Platelet Vol. 9.4 fl (6.2-12.0); Monocyte# 1.24 X10^3/uL; Monocyte% 8.1 % (0-10); NRBC Flagged by Analyzer 0 % (0-5); Neutrophil % 66.7 % (47-70); Platelet Count 297 K/mm3 (150-450); RBC Distribution Width CV 13.5 % (11.6-14.6); RBC Distribution Width SD 45.5 fl (35.1-43.9); White Blood Count 15.3 K/mm3 (4.4-11.0)
--- NOTE | 2020-12-06 10:36 | PCM.DC ---
Discharge Instructions Diet Discharge Diet: No restrictions Activity Discharge Activity: Return to Normal Activity Follow Up Care Please Follow Up With: Primary care provider When: Within the next two weeks. Test Results: Test results from this visit will be discussed in further detail at your follow-up appointment, if applicable. Discharge Plan Admission Admit Date/Time: 12/05/20 18:25 Primary Reason for Your Visit: Chest pain Attending Provider: Aintha Salgado Primary Care Provider: Joseph Smyth Instructions Patient Instructions: ED Chest Pain, Noncardiac Discharge Orders/Prescriptions Prescriptions: Continued rosuvastatin [Crestor] 40 mg tablet 40 mg PO DAILY RF: 0 albuterol sulfate 90 mcg/actuation HFA aerosol inhaler 1 - 2 puff inhalation Q6H PRN (Reason: shortness of breath or wheezing) Qty: 8.5 RF: 1 amoxicillin-pot clavulanate 875-125 mg tablet 1 tab PO BID 21 Days Qty: 42 RF: 0 omeprazole 20 MG capsule 20 mg PO DAILY RF: 0 pramipexole 0.25 MG tablet 0.25 - 0.75 mg PO QHS RF: 0 calcium carbonate 500 mg calcium (1,250 mg) tablet,chewable 1,000 mg PO DAILY RF: 0 cholecalciferol (vitamin D3) 25 mcg (1,000 unit) tablet,chewable 2,000 unit PO DAILY RF: 0 trazodone 50 mg tablet 50 - 150 mg PO QHS PRN (Reason: Sleep) RF: 0 fluconazole 150 mg tablet 150 mg PO Q3D PRN (Reason: Itching) RF: 0 montelukast [Singulair] 10 mg tablet 10 mg PO QHS PRN PRN (Reason: ALLERGIES) RF: 0 ferrous gluconate 324 mg (37.5 mg iron) Tablet 324 mg PO DAILY RF: 0 mecobalamin (vitamin B12) 5,000 mcg Tablet,Disintegrating 5,000 mcg PO DAILY RF: 0 fluoxetine 20 mg capsule 40 mg PO DAILY RF: 0 levothyroxine 150 mcg tablet 150 mcg PO DAILY Qty: 90 RF: 1 fluoxetine 20 mg capsule 20 mg PO BID Qty: 60 RF: 1 Referrals / Follow Up: Joseph Smyth MD [Primary Care Provider] - Within 2 Weeks Disposition Disposition (needs filled in before D/C Order can be placed): Home, Self Care
[2020-12-06] MEDS: Nitroglycerin (INPATIENT USE) 0.4 MG TAB.SUBL SL ×3 (11:42→14:03)
--- NOTE | 2020-12-06 11:44 | EKG12_ITS ---
Test Reason : Blood Pressure : / mmHG Vent. Rate : 087 BPM Atrial Rate : 087 BPM P-R Int : 138 ms QRS Dur : 088 ms QT Int : 406 ms P-R-T Axes : 038 009 059 degrees QTc Int : 488 ms Normal sinus rhythm Normal ECG Confirmed by ANJUM MARTINI, YONI ([id number]), index editor ANETA BOLES ([id number]) on 12/07/2020 11:35:53 AM Referred By: HERMANN Confirmed By:YONI VALERO MD
--- NOTE | 2020-12-06 13:59 | STRESSREP ---
Stress Test Report Lexiscan myocardial perfusion stress test. Indication; 65-year-old female presented to the ED at [facility] with symptoms of chest pain, patient had history of depression, and anxiety disorder. Hypothyroidism, morbid obesity and hyperlipidemia. Also patient has significant family history father with massive heart attack at the age of 39.. Stress protocol: Resting EKG demonstrates. Normal sinus rhythm. 0.4 mg of regadenoson was infused per usual protocol followed by rapid intravenous saline flush injection continuous EKG monitoring was performed. The maximum heart rate attained was 103 bpm which was 66% of maximum predicted heart . Stress EKG showed[, no significant change from the resting EKG, with maximum heart rate of 103 bpm. Arrhythmia: No arrhythmia demonstrated Symptoms: Patient had no symptoms of chest pain Blood pressure at rest: [154/98 mmHg blood pressure at the end of stress: 154/98 mmHg] Myocardial perfusion protocol. [14.5 mCi ]of Technetium 99m Sestamibi was injected at rest. [ 0.4 mg ]of Regadenoson was infused per usual protocol peak infusion[44.8 mCi ]of Technetium 99m sestamibi was injected. Stress images were obtained stress and rest images were reconstructed and compared in the short axis vertical and horizontal long axis. Gated images were also obtained Perfusion SPECT analysis: Review of the images demonstrate normal uptake of sestamibi at rest, post stress images demonstrate similar uptake of sestamibi to the resting images, homogeneous tracer uptake With no evidence of reversible myocardial ischemia. Gated SPECT analysis: The gated ejection fraction is [76 %]. LV wall motion normal with normal LV systolic function Conclusion: Negative Lexiscan sestamibi myocardial perfusion study for reversible myocardial ischemia Normal LV systolic function. Yeison Higgins MD,FACC,[facility]
[2020-12-06] MEDS: FLUoxetine 20 MG Capsule PO (14:31)
[2020-12-06] MEDS: Pantoprazole Sodium 20 MG Tablet PO (14:32)
[2020-12-06] MEDS: Atorvastatin Calcium 80 MG Tablet PO (14:32)
--- NOTE | 2020-12-06 14:55 | PCM.DC.SUM ---
Documented by User: Angel FRANCO 12/06/20 15:16 Providers Date of Admission: 12/05/20 Primary Care Physician: Dr. Joseph Smyth MD Reason For Visit: CHEST PAIN, ANGINA PECTORIS Diagnosis Discharge Diagnosis (1) Chest pain: Status: Acute Code(s): R07.9 - Chest pain, unspecified Medications at Discharge Home Medications omeprazole 20 mg PO DAILY 02/09/14 pramipexole 0.25 - 0.75 mg PO QHS 08/13/18 calcium carbonate 500 mg calcium (1,250 mg) chewable tablet 1,000 mg PO DAILY tab 06/22/20 cholecalciferol (vitamin D3) 25 mcg (1,000 unit) chewable tablet 2,000 unit PO DAILY tab 06/22/20 rosuvastatin 40 mg tablet 40 mg PO DAILY 06/25/20 trazodone 50 mg tablet 50 - 150 mg PO QHS PRN tab 06/25/20 levothyroxine 150 mcg tablet 150 mcg PO DAILY #90 tablet 09/24/20 albuterol sulfate 90 mcg/actuation aerosol inhaler 1 - 2 puff INHALATION Q6H PRN #8.5 g 11/06/20 fluoxetine 20 mg capsule 20 mg PO BID #60 cap 11/13/20 amoxicillin 875 mg-potassium clavulanate 125 mg tablet 1 tab PO BID 21 Days #42 tab 11/26/20 ferrous gluconate 324 mg PO DAILY 12/05/20 fluconazole 150 mg PO Q3D PRN 12/05/20 fluoxetine 40 mg PO DAILY 12/05/20 mecobalamin (vitamin B12) 5,000 mcg PO DAILY 12/05/20 montelukast [Singulair] 10 mg PO QHS PRN PRN 12/05/20 Hospital Course Procedures Nuclear stress test Summary of Care Provided Minutes Spent on Discharge: 35 Hospital Course: 1) chest pain/ACS rule out Patient still reports intermittent chest pain, which is responsive to nitroglycerin. Vital signs stable and patient is afebrile. EKG demonstrates no ST or T wave changes. Chest x-ray demonstrates no acute cardiopulmonary process. Stress test on 09/2020 demonstrates normal myocardial perfusion, normal LV systolic function and an estimated EF of 76%. Plan; follow-up with primary care provider within the next 2 weeks. 2) hyperlipidemia Continue statin. 3) hypothyroidism Continue Synthroid. 4) morbid obesity Weight 296 pounds, BMI of 46.4. Therapeutic lifestyle changes recommended. 5) depression Continue fluoxetine and trazodone. 6) GERD Continue PPI. 7) leukocytosis Suspect secondary to steroid injections. Patient seen by Angel Riojas PA-C, under the supervision of Dr. Salgado. Physical Exam Narrative Patient is a 65-year-old female comfortably resting in bed, alert and orient x3. Patient still reports intermittent chest pain, which is controlled with nitroglycerin. Denies palpitations, shortness of breath, sputum production, hemoptysis, fever, chills, N/V/D. Const alert, oriented x3 and no apparent distress HEENT normocephalic, head/scalp atraumatic and hearing grossly normal bilaterally Eyes EOMs intact bilaterally and conjunctivae normal Neck no lymphadenopathy, supple and no JVD Resp normal respiratory effort, no retractions, no use of accessory muscles and clear to auscultation bilaterally Cardio regular rate, regular rhythm, no murmurs and no JVD GI normal to inspection, nondistended, normoactive bowel sounds, soft to palpation and non-tender Extremity normal to inspection, full ROM and no clubbing, cyanosis or edema Skin no rashes or lesions noted, no wounds and no jaundice Neuro CN's II-XII intact bilaterally Psych affect normal Weight / BMI Weight Weight: 296 lb Body Mass Index (BMI) 46.3 ABG / Lab / Microbiology Data Result Diagrams: 12/06/20 06:40 12/05/20 17:10 Laboratory: Laboratory Results - last 24 hr 12/05/20 12/05/20 12/05/20 17:10 17:10 19:33 WBC 18.5 H RBC 5.11 Hgb 15.4 H Hct 46.7 MCV 91.4 MCH 30.1 MCHC 33.0 RDW Std Deviation 46.0 H RDW Coeff of Giancarlo 13.6 Plt Count 342 MPV 9.4 Immature Gran % (Auto) 0.600 Neut % (Auto) 68.6 Lymph % (Auto) 20.8 [place] % (Auto) 7.6 Eos % (Auto) 2.3 Baso % (Auto) 0.1 Absolute Neuts (auto) 12.7 H Absolute Lymphs (auto) 3.85 Nucleated RBC % 0 Sodium 138 Potassium 3.8 Chloride 101 Carbon Dioxide 30.0 Anion Gap 7 BUN 13 Creatinine 1.02 Estim Creat Clear Calc 53.47 Est GFR (MDRD) Af Amer 70 Est GFR (MDRD) Non-Af 58 L BUN/Creatinine Ratio 12.7 Glucose 104 Calcium 9.2 Troponin I High Sens 22.8 21.2 12/06/20 12/06/20 01:10 06:40 WBC 15.3 H RBC 4.50 Hgb 13.8 Hct 41.2 MCV 91.6 MCH 30.7 MCHC 33.5 RDW Std Deviation 45.5 H RDW Coeff of Giancarlo 13.5 Plt Count 297 MPV 9.4 Immature Gran % (Auto) 0.400 Neut % (Auto) 66.7 Lymph % (Auto) 20.4 [place] % (Auto) 8.1 Eos % (Auto) 4.3 Baso % (Auto) 0.1 Absolute Neuts (auto) 10.2 H Absolute Lymphs (auto) 3.11 Nucleated RBC % 0 Sodium Potassium Chloride Carbon Dioxide Anion Gap BUN Creatinine Estim Creat Clear Calc Est GFR (MDRD) Af Amer Est GFR (MDRD) Non-Af BUN/Creatinine Ratio Glucose Calcium Troponin I High Sens 17.3 Radiography Diagnostic Testing: Radiology Impression Chest X-Ray 12/05/20 17:20 IMPRESSION: No evidence of acute cardiopulmonary process. Electronically Signed: Pietro Toure DO at 17:43 EDT , Service support , D/C Instructions Discharge Diet: No restrictions Please Follow Up With: Primary care provider When: Within the next two weeks. Meaningful Use Info Meaningful Use Diagnoses (Choose all that apply): None applicable Discharge Plan Admission Admit Date/Time: 12/05/20 18:25 Primary Reason for Your Visit: Chest pain Attending Provider: Anitha Salgado Primary Care Provider: Joseph Smyth Instructions Patient Instructions: ED Chest Pain, Noncardiac Discharge Orders/Prescriptions Prescriptions: Continued rosuvastatin [Crestor] 40 mg tablet 40 mg PO DAILY RF: 0 albuterol sulfate 90 mcg/actuation HFA aerosol inhaler 1 - 2 puff inhalation Q6H PRN (Reason: shortness of breath or wheezing) Qty: 8.5 RF: 1 amoxicillin-pot clavulanate 875-125 mg tablet 1 tab PO BID 21 Days Qty: 42 RF: 0 omeprazole 20 MG capsule 20 mg PO DAILY RF: 0 pramipexole 0.25 MG tablet 0.25 - 0.75 mg PO QHS RF: 0 calcium carbonate 500 mg calcium (1,250 mg) tablet,chewable 1,000 mg PO DAILY RF: 0 cholecalciferol (vitamin D3) 25 mcg (1,000 unit) tablet,chewable 2,000 unit PO DAILY RF: 0 trazodone 50 mg tablet 50 - 150 mg PO QHS PRN (Reason: Sleep) RF: 0 fluconazole 150 mg tablet 150 mg PO Q3D PRN (Reason: Itching) RF: 0 montelukast [Singulair] 10 mg tablet 10 mg PO QHS PRN PRN (Reason: ALLERGIES) RF: 0 ferrous gluconate 324 mg (37.5 mg iron) Tablet 324 mg PO DAILY RF: 0 mecobalamin (vitamin B12) 5,000 mcg Tablet,Disintegrating 5,000 mcg PO DAILY RF: 0 fluoxetine 20 mg capsule 40 mg PO DAILY RF: 0 levothyroxine 150 mcg tablet 150 mcg PO DAILY Qty: 90 RF: 1 fluoxetine 20 mg capsule 20 mg PO BID Qty: 60 RF: 1 Referrals / Follow Up: Joseph Symth MD [Primary Care Provider] - Within 2 Weeks Disposition Disposition (needs filled in before D/C Order can be placed): Home, Self Care Documented by User: Dr. Anitha Salgado MD 12/06/20 16:11 Providers Date of Admission: 12/05/20 Reason For Visit: CHEST PAIN, ANGINA PECTORIS Medications at Discharge Home Medications omeprazole 20 mg PO DAILY 02/09/14 pramipexole 0.25 - 0.75 mg PO QHS 08/13/18 calcium carbonate 500 mg calcium (1,250 mg) chewable tablet 1,000 mg PO DAILY tab 06/22/20 cholecalciferol (vitamin D3) 25 mcg (1,000 unit) chewable tablet 2,000 unit PO DAILY tab 06/22/20 rosuvastatin 40 mg tablet 40 mg PO DAILY 06/25/20 trazodone 50 mg tablet 50 - 150 mg PO QHS PRN tab 06/25/20 levothyroxine 150 mcg tablet 150 mcg PO DAILY #90 tablet 09/24/20 albuterol sulfate 90 mcg/actuation aerosol inhaler 1 - 2 puff INHALATION Q6H PRN #8.5 g 11/06/20 fluoxetine 20 mg capsule 20 mg PO BID #60 cap 11/13/20 amoxicillin 875 mg-potassium clavulanate 125 mg tablet 1 tab PO BID 21 Days #42 tab 11/26/20 ferrous gluconate 324 mg PO DAILY 12/05/20 fluconazole 150 mg PO Q3D PRN 12/05/20 fluoxetine 40 mg PO DAILY 12/05/20 mecobalamin (vitamin B12) 5,000 mcg PO DAILY 12/05/20 montelukast [Singulair] 10 mg PO QHS PRN PRN 12/05/20 ABG / Lab / Microbiology Data Result Diagrams: 12/06/20 06:40 12/05/20 17:10 Discharge Plan Admission Admit Date/Time: 12/05/20 18:25 Primary Reason for Your Visit: Chest pain Attending Provider: Anitha Salgado Primary Care Provider: Joseph Smyth Instructions Patient Instructions: ED Chest Pain, Noncardiac Discharge Orders/Prescriptions Prescriptions: Continued rosuvastatin [Crestor] 40 mg tablet 40 mg PO DAILY RF: 0 albuterol sulfate 90 mcg/actuation HFA aerosol inhaler 1 - 2 puff inhalation Q6H PRN (Reason: shortness of breath or wheezing) Qty: 8.5 RF: 1 amoxicillin-pot clavulanate 875-125 mg tablet 1 tab PO BID 21 Days Qty: 42 RF: 0 omeprazole 20 MG capsule 20 mg PO DAILY RF: 0 pramipexole 0.25 MG tablet 0.25 - 0.75 mg PO QHS RF: 0 calcium carbonate 500 mg calcium (1,250 mg) tablet,chewable 1,000 mg PO DAILY RF: 0 cholecalciferol (vitamin D3) 25 mcg (1,000 unit) tablet,chewable 2,000 unit PO DAILY RF: 0 trazodone 50 mg tablet 50 - 150 mg PO QHS PRN (Reason: Sleep) RF: 0 fluconazole 150 mg tablet 150 mg PO Q3D PRN (Reason: Itching) RF: 0 montelukast [Singulair] 10 mg tablet 10 mg PO QHS PRN PRN (Reason: ALLERGIES) RF: 0 ferrous gluconate 324 mg (37.5 mg iron) Tablet 324 mg PO DAILY RF: 0 mecobalamin (vitamin B12) 5,000 mcg Tablet,Disintegrating 5,000 mcg PO DAILY RF: 0 fluoxetine 20 mg capsule 40 mg PO DAILY RF: 0 levothyroxine 150 mcg tablet 150 mcg PO DAILY Qty: 90 RF: 1 fluoxetine 20 mg capsule 20 mg PO BID Qty: 60 RF: 1 Referrals / Follow Up: Joseph Smyth MD [Primary Care Provider] - Within 2 Weeks Disposition Disposition (needs filled in before D/C Order can be placed): Home, Self Care Charges/Coding Addendum Addendum: This patient was seen in conjunction with SALVADOR Contreras. I have independently interviewed and examined the patient and reviewed pertinent historical, laboratory, and other data. Please refer to SALVADOR Contreras's note for his patient's presentation, findings, and recommendations. I have reviewed and his note and concur with his documentation 65-year-old female with multiple comorbidities who presented with chest pain that woke her up at 3 AM on the day of presentation. This was described as squeezing. It was not associated with shortness of breath. It was intermittent. Radiated around her rib cage to the back. She denied any diaphoresis or dizziness or palpitation. She went to her primary care doctor and was referred here. Her admitting EKG was unremarkable. No ST-T changes. Troponins were negative. Patient underwent nuclear stress test that was unremarkable. Patient follow-up with a primary care doctor within 1 to 2 weeks. On the day of discharge, patient was seen and examined. Denied any new complaints. Physical Exam: Gen: Comfortable, not pale, not jaundiced CVS:HS I +II, regular, no murmurs RESP: Diminished at lung bases GI: BS present and normal, soft, nontender, no palpable organs EXT:No edema Visit Charges OBSV E&M: 07344 Observation care discharge
--- NOTE | 2020-12-06 15:50 | PHA.DC.MR ---
Pharmacy Service has performed discharge medication reconciliation for this patient. No new medications at time of discharge. Medications reviewed are from previously reported home medications. Home Medications omeprazole 20 mg PO DAILY 02/09/14 pramipexole 0.25 - 0.75 mg PO QHS 08/13/18 calcium carbonate 500 mg calcium (1,250 mg) chewable tablet 1,000 mg PO DAILY tab 06/22/20 cholecalciferol (vitamin D3) 25 mcg (1,000 unit) chewable tablet 2,000 unit PO DAILY tab 06/22/20 rosuvastatin 40 mg tablet 40 mg PO DAILY 06/25/20 trazodone 50 mg tablet 50 - 150 mg PO QHS PRN tab 06/25/20 levothyroxine 150 mcg tablet 150 mcg PO DAILY #90 tablet 09/24/20 albuterol sulfate 90 mcg/actuation aerosol inhaler 1 - 2 puff INHALATION Q6H PRN #8.5 g 11/06/20 fluoxetine 20 mg capsule 20 mg PO BID #60 cap 11/13/20 amoxicillin 875 mg-potassium clavulanate 125 mg tablet 1 tab PO BID 21 Days #42 tab 11/26/20 ferrous gluconate 324 mg PO DAILY 12/05/20 fluconazole 150 mg PO Q3D PRN 12/05/20 fluoxetine 40 mg PO DAILY 12/05/20 mecobalamin (vitamin B12) 5,000 mcg PO DAILY 12/05/20 montelukast [Singulair] 10 mg PO QHS PRN PRN 12/05/20 The patient's discharge medication list was reviewed for discrepancies and discrepancies were resolved.
== END 2020-12-06 14:54 | disposition home or self-care (01) ==
LOC: ED 17:56 → PCU 18:33
PROVIDERS: Admitting Provider Hospitalist; Emergency Provider Emergency Medicine; PCP Internal Medicine; Visit Provider Internal Medicine
DX: R07.89 Other chest pain (principal); R06.02 Shortness of breath; E66.01 Morbid (severe) obesity due to excess calories; E78.5 Hyperlipidemia, unspecified; E03.9 Hypothyroidism, unspecified; I10 Essential (primary) hypertension; K21.9 Gastro-esophageal reflux disease without esophagitis; K22.70 Barrett's esophagus without dysplasia; F32.9 Major depressive disorder, single episode, unspecified; F41.9 Anxiety disorder, unspecified; M19.90 Unspecified osteoarthritis, unspecified site; G47.30 Sleep apnea, unspecified; Z82.49 Family history of ischemic heart disease and other diseases of the circulatory system; Z87.891 Personal history of nicotine dependence; Z68.42 Body mass index [BMI] 45.0-49.9, adult; Z79.899 Other long term (current) drug therapy; D72.829 Elevated white blood cell count, unspecified
CPT/HCPCS: 36415; 71045; 78452; 80048; 84484; 85025; 93005; 93017; 99218; 99251; 99285; A9500; J7030; A4216; G0378; G0463; J2785

== ENCOUNTER → 2020-12-19 12:17 | Outpatient (CLI) | payer MEDICARE, OTHER, SELFPAY ==
[2020-12-13 05:42] VITALS: BMI 45.0
[2020-12-19 12:36] VITALS: PULSE 108; PULSE 109; PULSE 91; PULSE 93; O2SAT 90; O2SAT 91; O2SAT 92; O2SAT 95; O2SAT 96
--- NOTE | 2020-12-19 13:07 | PCM.PSN.6M ---
PSN 6 Minute Walk Test 6 Minute Walk Test 6 Minute Walk Test: 6 Minute Walk Test PSN:6-Minute Walk Test Start: 12/19/20 12:35 Freq: Status: Active Protocol: [id number] Document 12/19/20 12:36 STEPHANIE (Rec: 12/19/20 12:38 STEPHANIE [id number]) 6 Minute Walk Test Date Performed 12/19/20 Time Performed 12:30 Height 5 ft 7 in Weight: 136.078 kg Weight in Pounds 300.[address]: Myles Plummer Assistive device used: None Pre-test Oxygen Delivery Method Room Air Pulse Ox (%) 96 Pulse Rate (60-100 beats/min) 91 Dyspnea Tiny Scale (0-10) 0.5 Exertion Tiny Scale (6-20) 6 1st minute Oxygen Delivery Method Room Air Pulse Ox (%) 91 Pulse Rate (60-100 beats/min) 109 H 2nd minute Oxygen Delivery Method Room Air Pulse Ox (%) 92 Pulse Rate (60-100 beats/min) 109 H 3rd minute Oxygen Delivery Method Room Air Pulse Ox (%) 90 Pulse Rate (60-100 beats/min) 109 H 4th minute Oxygen Delivery Method Room Air Pulse Ox (%) 92 Pulse Rate (60-100 beats/min) 109 H 5th minute Oxygen Delivery Method Room Air Pulse Ox (%) 91 Pulse Rate (60-100 beats/min) 109 H 6th minute Oxygen Delivery Method Room Air Pulse Ox (%) 92 Pulse Rate (60-100 beats/min) 108 H Dyspnea Tiny Scale (0-10) 2 Exertion Tiny Scale (6-20) 11 Post-test Oxygen Delivery Method Room Air Pulse Ox (%) 95 Pulse Rate (60-100 beats/min) 93 Full Laps Walked 19 Partial Lap, Number of Tiles Walked 31 Total Distance Walked (ft) 1152 Interpretation Interpretation: The patient was able to ambulate 1152 feet over the course of 6 minutes on room air with no assistive devices or breaks. The patient did experience significant desaturation from a baseline of 96% to as low as 90% and a peak heart rate of 109 bpm. These findings are consistent with a respiratory limitation exercise tolerance. Recommendations Recommendations: The patient requires no supplemental oxygen at this time, but will need to be followed closely given level of desaturation.
== END ==
PROVIDERS: PCP Internal Medicine; Referring Provider Internal Medicine Critical Care Medicine; Visit Provider Internal Medicine Critical Care Medicine
DX: I27.20 Pulmonary hypertension, unspecified (principal); G47.33 Obstructive sleep apnea (adult) (pediatric)
CPT/HCPCS: 94618

== ENCOUNTER → 2020-12-21 06:49 | Outpatient (CLI) | payer OTHER, MEDICARE, SELFPAY ==
[2020-12-13 05:42] VITALS: BMI 45.0
[2020-12-19 14:50] VITALS: BMI 45.0
[2020-12-21] MEDS: Methacholine Chloride 18 ml neb kit INHALATION (07:11)
--- NOTE | 2020-12-21 12:38 | BRONCHALL ---
Bronchoprovocation Challenge Bronchoprovocation Challenge Bronchoprovocation Challenge: BRONCHOPROVOCATION STUDY INTERPRETATION Brief HPI: Patient is a 65 year old female, currently under the care of myself, who presents to [facility] for a bronchoprovocation study secondary to diagnosis of dyspnea. Respiratory therapist reports good effort and reproducible results. Interpretation: Initial spirometry showed no large airways obstructive ventilatory defect. The patient was then given increasingly concentrated doses of methacholine in a stepwise/standardized fashion, using a modified ATS protocol. The patient had a significant reduction in FEV1 by 32% and a calculated PD20 of 0.245. Impression: Positive bronchoprovocation study in the range consistent with the diagnosis of asthma
== END ==
PROVIDERS: PCP Internal Medicine; Referring Provider Internal Medicine Critical Care Medicine; Visit Provider Internal Medicine Critical Care Medicine
DX: G47.33 Obstructive sleep apnea (adult) (pediatric) (principal); I27.20 Pulmonary hypertension, unspecified
CPT/HCPCS: 94070; 95070

== ENCOUNTER 2020-12-22 15:45 | Emergency (ER) | payer OTHER, MEDICARE, SELFPAY ==
[2020-12-19 14:50] VITALS: BMI 45.0
[2020-12-22] VITALS (9 sets, daily range): BP systolic 123–152; BP diastolic 65–88; PULSE 76–92; RESP 18–20; TEMP 36.6; O2SAT 93–100; BMI 47.9
--- NOTE | 2020-12-22 16:09 | ED.VIS.DYS ---
HPI History of Present Illness Chief Complaint: Shortness of Breath Narrative Narrative: 65-year-old female presenting with shortness of breath. She states she does have a chronic cough, pulmonary hypertension, sleep apnea. She states that she saw Dr. Plummer yesterday and he was doing a test to reduce an asthmatic reaction. She states she was a little wheezy yesterday and received breathing treatments. She states she feels similar today. She denies any chest pain. There is no change in her cough. No fever or chills. She has had her COVID-19 vaccines. [facility] Medical History Anxiety Arthritis Back problem Barretts esophagus Chest congestion Chest pain Cough Depression (emotion) Diverticulitis Epigastric abdominal tenderness Family history of coronary artery disease GERD (gastroesophageal reflux disease) History of gallstones Hyperlipemia Hypertension Hypothyroidism Morbid obesity with BMI of 40.0-44.9, adult Respiratory insufficiency Routine health maintenance Shortness of breath Shortness of breath Sinusitis Sleep apnea Home Medications pramipexole 0.25 - 0.75 mg PO QHS 08/13/18 [History Last Taken 12/04/20] calcium carbonate 500 mg calcium (1,250 mg) chewable tablet 1,000 mg PO DAILY tab 06/22/20 [History Last Taken 12/05/20] cholecalciferol (vitamin D3) 25 mcg (1,000 unit) chewable tablet 2,000 unit PO DAILY tab 06/22/20 [History Last Taken 12/05/20] rosuvastatin 40 mg tablet 40 mg PO DAILY 06/25/20 [History Last Taken 12/05/20] trazodone 50 mg tablet 50 - 150 mg PO QHS PRN tab 06/25/20 [History Last Taken 12/04/20] albuterol sulfate 90 mcg/actuation aerosol inhaler 1 - 2 puff INHALATION Q6H PRN #8.5 g 11/06/20 [Rx Last Taken Unknown] ferrous gluconate 324 mg PO DAILY 12/05/20 [History Last Taken 12/05/20] fluoxetine 40 mg PO DAILY 12/05/20 [History Last Taken 12/05/20] mecobalamin (vitamin B12) 5,000 mcg PO DAILY 12/05/20 [History Last Taken 12/05/20] montelukast [Singulair] 10 mg PO QHS PRN PRN 12/05/20 [History Last Taken Unknown] levothyroxine 150 mcg tablet 150 mcg PO DAILY #90 tablet 12/19/20 [Rx Last Taken Unknown] omeprazole 40 mg capsule,delayed release 40 mg PO DAILY #90 cap 12/19/20 [Rx Last Taken Unknown] prednisone 50 mg PO DAILY #5 tab 12/22/20 [Rx Last Taken Unknown] Allergy/AdvReac Type Severity Reaction Status Date / Time pravastatin [From Pravachol] Allergy Mild itching Verified 12/22/20 15:47 ketoprofen [From Orudis] Allergy Nausea/Vom/ Verified 12/22/20 15:47 Diarrhea Family History Sister CAD (coronary artery disease) Thyroid disorder Brother CAD (coronary artery disease) Heart disease Myocardial infarction Alcoholism Angina at rest Mother Diabetes Myocardial infarction Father Hypertension Heart disease Myocardial infarction Angina at rest Thyroid disorder Grandfather Alcoholism Surgical History History of cholecystectomy (~1998) History of colonoscopy History of esophagogastroduodenoscopy (EGD) (~2015) History of hysterectomy (~1998) Social History Smoking Status: Former smoker quit date: 06/15/84 Tobacco: How many years used: 15 Electronic Cigarette Use: not used how long ago did patient quit smokin years second hand exposure: No alcohol intake: current alcohol intake frequency: holidays/special occasions only Alcohol type: wine substance use type: does not use what type of physical activity do you participate in: none ROS ROS ED Constitutional Constitutional ED: Denies chills, fever(s) or sweats Eyes Eyes: Denies blurry vision or diplopia ENT ENT ED: Denies rhinorrhea or sore throat Cardiovascular Cardiovascular: Denies chest pain or palpitations Respiratory/Chest Respiratory/Chest: Reports cough and dyspnea Gastrointestinal Gastrointestinal: Denies abdominal pain or nausea Genitourinary Genitourinary ED: Denies dysuria or hematuria Musculoskeletal Musculoskeletal: Denies arthralgias or myalgias Integumentary Denies abscess or rash Neurologic Neurologic: Denies headache(s) or paresthesias Psychiatric Psychiatric: Denies anxiety or depression EXAM Physical Exam Const Vital Signs: 12/22/20 15:47 12/22/20 15:49 12/22/20 15:58 Temperature 97.8 F Temperature Source Temporal Pulse Rate 87 Respiratory Rate 18 Respiratory Effort Short of Breath Respiratory Depth Normal Respiratory Pattern Tachypnea Blood Pressure 151/88 H Blood Pressure Mean 109 Pulse Ox 95 94 Oxygen Delivery Method Room Air Room Air Room Air 12/22/20 16:14 12/22/20 18:04 12/22/20 18:30 Temperature Temperature Source Pulse Rate 79 76 Respiratory Rate 20 H 18 Respiratory Effort Short of Breath Normal Respiratory Depth Normal Respiratory Pattern Normal Blood Pressure Blood Pressure Mean Pulse Ox 97 100 Oxygen Delivery Method Room Air Room Air Room Air 12/22/20 18:32 12/22/20 18:41 Temperature Temperature Source Pulse Rate 89 87 Respiratory Rate 18 18 Respiratory Effort Respiratory Depth Respiratory Pattern Blood Pressure 152/76 H Blood Pressure Mean 101 Pulse Ox 98 Oxygen Delivery Method Room Air Positive well nourished General Appearance ED: NAD HEENT Reports moist mucous membranes atraumatic Eyes PERRL and EOMs intact bilaterally Resp normal respiratory effort Auscultation: wheezes scattered wheezes Cardio regular rate and regular rhythm Neuro oriented x3 Sensorium / Orientation: alert Psych mental status grossly normal Thought Process: normal thought process Skin no wounds Lesions: no lesions Rashes: no rashes MDM MDM MDM Narrative Medical decision making narrative: Patient presents with wheezing after breathing challenge to induce wheezing. She states she had a breathing treatment after her test because she was wheezing. She feels more short of breath currently. On exam she is wheezing but is not using any intercostal muscles and she is not having any retractions. She is speaking in full sentences. She was given prednisone 60 mg as well as breathing treatments. She felt somewhat improved however her wheezing did return. She was given a second set of breathing treatments and her symptoms have resolved. At this point I feel she is safe to be discharged home. I will put her on a burst of prednisone and she has an albuterol inhaler at home. She is counseled to follow-up with Dr. Plummer outpatient. Impression: 1. Reactive airway Discharge Plan Triage Chief Complaint: Shortness of Breath ED Provider: Louis Rahman Dx/Rx/DC Orders Instructions: ED Asthma, Acute (Adult) Prescriptions: New prednisone 50 mg tablet 50 mg PO DAILY Qty: 5 RF: 0 No Action rosuvastatin [Crestor] 40 mg tablet 40 mg PO DAILY RF: 0 albuterol sulfate 90 mcg/actuation HFA aerosol inhaler 1 - 2 puff inhalation Q6H PRN (Reason: shortness of breath or wheezing) Qty: 8.5 RF: 1 levothyroxine 150 mcg tablet 150 mcg PO DAILY Qty: 90 RF: 1 omeprazole 40 mg capsule,delayed release(DR/EC) 40 mg PO DAILY Qty: 90 RF: 2 pramipexole 0.25 MG tablet 0.25 - 0.75 mg PO QHS RF: 0 calcium carbonate 500 mg calcium (1,250 mg) tablet,chewable 1,000 mg PO DAILY RF: 0 cholecalciferol (vitamin D3) 25 mcg (1,000 unit) tablet,chewable 2,000 unit PO DAILY RF: 0 trazodone 50 mg tablet 50 - 150 mg PO QHS PRN (Reason: Sleep) RF: 0 montelukast [Singulair] 10 mg tablet 10 mg PO QHS PRN PRN (Reason: ALLERGIES) RF: 0 ferrous gluconate 324 mg (37.5 mg iron) Tablet 324 mg PO DAILY RF: 0 mecobalamin (vitamin B12) 5,000 mcg Tablet,Disintegrating 5,000 mcg PO DAILY RF: 0 fluoxetine 20 mg capsule 40 mg PO DAILY RF: 0 Primary Care Provider: Joseph Smyth Referrals: Joseph Smyth MD [Primary Care Provider] - Disposition Disposition: Home, Self Care
[2020-12-22] MEDS: Ipratropium/Albuterol Sulfate 3 ML AMPUL.NEB INHALATION (16:11)
[2020-12-22] MEDS: Albuterol 2.5 MG/3 ML VIAL.NEB. INHALATION ×2 (16:11→18:03)
[2020-12-22] MEDS: predniSONE 20 MG Tablet 60 MG PO (17:09)
[2020-12-22] MEDS: Ipratropium 0.5 MG/2.5 ML SOLUTION INHALATION (18:41)
== END 2020-12-22 20:28 | disposition home or self-care (01) ==
PROVIDERS: Emergency Provider Student in an Organized Health Care Education/Training Program; PCP Internal Medicine
DX: J45.909 Unspecified asthma, uncomplicated (principal); F41.9 Anxiety disorder, unspecified; M19.90 Unspecified osteoarthritis, unspecified site; F32.9 Major depressive disorder, single episode, unspecified; K21.9 Gastro-esophageal reflux disease without esophagitis; E78.5 Hyperlipidemia, unspecified; I10 Essential (primary) hypertension; E03.9 Hypothyroidism, unspecified; E66.01 Morbid (severe) obesity due to excess calories; Z79.51 Long term (current) use of inhaled steroids; Z79.899 Other long term (current) drug therapy; Z87.891 Personal history of nicotine dependence
CPT/HCPCS: 94640; 99251; 99283; G0463

== ENCOUNTER → 2021-01-04 20:00 | Outpatient (CLI) | payer OTHER, MEDICARE, SELFPAY ==
[2020-12-13 05:42] VITALS: BMI 45.0
== END ==
PROVIDERS: PCP Internal Medicine; Referring Provider Internal Medicine Critical Care Medicine; Visit Provider Internal Medicine Critical Care Medicine
DX: G47.33 Obstructive sleep apnea (adult) (pediatric) (principal); I27.20 Pulmonary hypertension, unspecified
CPT/HCPCS: 95811

== ENCOUNTER → 2021-01-21 08:30 | Outpatient (CLI) | payer OTHER, MEDICARE, SELFPAY ==
[2020-12-22 15:47] VITALS: BMI 47.9
== END ==
PROVIDERS: PCP Internal Medicine; Visit Provider Nurse Practitioner Acute Care
DX: Z46.89 Encounter for fitting and adjustment of other specified devices (principal)

== ENCOUNTER 2021-05-05 08:46 | Emergency (ER) | payer MEDICARE, SELFPAY ==
[2021-05-05 08:46] VITALS: BP 189/87; PULSE 97; RESP 24; TEMP 36.6; O2SAT 93; BMI 45.4
--- NOTE | 2021-05-05 08:54 | ED.VIS.DYS ---
HPI History of Present Illness Chief Complaint: Shortness of Breath Informant: patient Onset/Context/Timing Onset: Days Context: sudden Timing: Continuous and Waxes and wanes Quality: Positive for Dyspnea on exertion and Wheezing; Negative for Orthopnea and PND Current Severity: Moderate Maximum Severity: Severe Worsened by: Exertion Relieved by: Nothing Associated Symptoms cough; Negative for rhinorrhea, post nasal drip, ear pain, fever, sore throat, subjective, chills, sweats, clear sputum, white sputum, yellow sputum or green sputum Chest Pain: Positive for None Narrative Narrative: Patient is a 66-year-old woman with history of asthma, essential hypertension, hyperlipidemia, hypothyroidism, obstructive sleep apnea who presents with shortness of breath. She states she has been using her albuterol every 2 hours. She is doing 6 puffs at a time. She has not been on prednisone or any type of steroid the last 3 to 6 months. She denies fever, chills night sweats. She denies headache. She denies visual, ocular auditory symptoms. She denies rhinorrhea, congestion or postnasal drainage. She denies sore throat. She denies chest discomfort. She does report shortness of breath. She has a scant cough which occurs when she has an asthma attack. She has not smoked in 35 years. She denies vomiting or diarrhea. She denies abdominal pain. Denies flank pain. She denies myalgias arthralgias. She denies rash. There is no history of VTE. She denies leg pain, swelling or discoloration. PE Risk Factors: Negative for Cancer, OCP + Smoking + > 35, Prior DVT or PE, Recent immobilization, Recent surgery and Recent travel Prior similar symptoms: Yes (Asthma) Recent Illness/Hospitalization: No PFSH PFS Medical History Anxiety Arthritis Back problem Barretts esophagus Chest congestion Chest pain Depression (emotion) Diverticulitis Epigastric abdominal tenderness Essential hypertension Family history of coronary artery disease History of gallstones Hyperlipemia Hypothyroidism Morbid obesity with BMI of 40.0-44.9, adult Respiratory insufficiency Routine health maintenance Shortness of breath Sinusitis Home Medications pramipexole 0.25 - 0.75 mg PO QHS 08/13/18 [History Last Taken 12/04/20] calcium carbonate 500 mg calcium (1,250 mg) chewable tablet 1,000 mg PO DAILY tab 06/22/20 [History Last Taken 12/05/20] cholecalciferol (vitamin D3) 25 mcg (1,000 unit) chewable tablet 2,000 unit PO DAILY tab 06/22/20 [History Last Taken 12/05/20] trazodone 50 mg tablet 50 - 150 mg PO QHS PRN tab 06/25/20 [History Last Taken 12/04/20] albuterol sulfate 90 mcg/actuation aerosol inhaler 1 - 2 puff INHALATION Q6H PRN #8.5 g 11/06/20 [Rx Last Taken Unknown] ferrous gluconate 324 mg PO DAILY 12/05/20 [History Last Taken 12/05/20] mecobalamin (vitamin B12) 5,000 mcg PO DAILY 12/05/20 [History Last Taken 12/05/20] montelukast [Singulair] 10 mg PO QHS PRN PRN 12/05/20 [History Last Taken Unknown] levothyroxine 150 mcg tablet 150 mcg PO DAILY #90 tablet 12/19/20 [Rx Last Taken Unknown] omeprazole 40 mg capsule,delayed release 40 mg PO DAILY #90 cap 12/19/20 [Rx Last Taken Unknown] fluoxetine 20 mg capsule 40 mg PO DAILY #180 cap 04/26/21 [Rx Last Taken Unknown] rosuvastatin 40 mg tablet 40 mg PO DAILY #90 tab 04/26/21 [Rx Last Taken Unknown] prednisone 60 mg PO DAILY #15 tablet 05/05/21 [Rx Last Taken Unknown] Allergy/AdvReac Type Severity Reaction Status Date / Time pravastatin [From Pravachol] Allergy Mild itching Verified 05/05/21 08:48 ketoprofen [From Orudis] Allergy Nausea/Vom/ Verified 05/05/21 08:48 Diarrhea Family History Sister CAD (coronary artery disease) Thyroid disorder Brother CAD (coronary artery disease) Heart disease Myocardial infarction Alcoholism Angina at rest Mother Diabetes Myocardial infarction Father Hypertension Heart disease Myocardial infarction Angina at rest Thyroid disorder Grandfather Alcoholism Surgical History History of cholecystectomy (~1998) History of colonoscopy History of esophagogastroduodenoscopy (EGD) (~2015) History of hysterectomy (~1998) Social History (Updated 05/05/21 @ 08:[address] Luis Alberto Estrella MD) household members: none Smoking Status: Former smoker quit date: 06/15/84 Tobacco: How many years used: 15 Electronic Cigarette Use: not used how long ago did patient quit smokin years second hand exposure: No alcohol intake: current alcohol intake frequency: holidays/special occasions only Alcohol type: wine substance use type: does not use what type of physical activity do you participate in: none ROS ROS ED Constitutional Constitutional ED: Denies chills, fever(s), sweats or weight loss Eyes Eyes: Denies blurry vision, change in vision or diplopia ENT ENT ED: Denies ear pain, rhinorrhea or sore throat Cardiovascular Cardiovascular: Denies chest pain, orthopnea, palpitations, paroxysmal nocturnal dyspnea or racing heartbeat Respiratory/Chest Respiratory/Chest: Reports cough, dyspnea and dyspnea on exertion; Denies orthopnea, paroxysmal nocturnal dyspnea or sputum Gastrointestinal Gastrointestinal: Reports nausea; Denies abdominal pain, constipation, diarrhea or vomiting Genitourinary Genitourinary ED: Denies dysuria, hematuria or urinary frequency Musculoskeletal Musculoskeletal: Denies arthralgias, back pain, myalgias or neck pain Integumentary Denies abscess or rash Neurologic Neurologic: Denies headache(s) Psychiatric Psychiatric: Reports depression; Denies anxiety or suicidal thoughts Hematologic/Lymphatic Hematologic/Lymphatic: Denies easy bleeding or easy bruising EXAM Physical Exam Const Vital Signs: 05/05/21 08:46 05/05/21 09:05 Temperature 97.9 F Temperature Source Temporal Pulse Rate 97 98 Respiratory Rate 24 H 19 H Respiratory Effort Short of Breath Respiratory Depth Deep Respiratory Pattern Tachypnea Blood Pressure 189/87 H Blood Pressure Mean 121 Pulse Ox 93 Oxygen Delivery Method Room Air Room Air Positive well nourished, well developed and obese General Appearance ED: well developed and other Patient appears short of breath. There is no use of accessory muscles. ; Negative for NAD or pallor Nutritional Appearance: obese HEENT Reports moist mucous membranes HEENT Narrative: Head is normocephalic. Uvula is midline. There is no erythema or exudate posterior pharynx. atraumatic Eyes PERRL and EOMs intact bilaterally General Eye ED: Negative for pale conjunctiva or scleral icterus Neck no lymphadenopathy, supple and no meningeal signs Resp normal respiratory effort and No clear to auscultation bilaterally Auscultation: wheezes expiratory wheezes and throughout (With increased expiratory phase and decreased air movement.) and diminished lung sounds Cardio regular rate, regular rhythm, S1 normal heart sound, S2 normal heart sound and no murmurs GI non-tender, non-distended and no masses Auscultation: normoactive bowel sounds Palpation: soft Back/Spine no CVA tenderness Extremity normal to inspection Extremity Narrative: There is no asymmetry, swelling, discoloration, leg vein distention, palpable cords or tenderness along the distribution of the deep venous system. General Extremety ED: Negative for edema or tenderness General Extremity: Negative for edema Neuro oriented x3 and CN's II-XII intact bilaterally Sensorium / Orientation: alert Gait (Neuro): normal gait Psych mental status grossly normal Thought Process: normal thought process Skin no wounds General Skin Exam: Negative for jaundice or pallor Lesions: no lesions Rashes: no rashes MDM MDM MDM Narrative Medical decision making narrative: Patient has no infectious symptoms. Suspect this is exacerbation of patient's asthma. She was treated with prednisone and albuterol. Will reassess. If there is no improvement will obtain imaging and laboratory studies. Patient was reassessed at 1021. She is no longer tachypneic. No expiratory wheezing was noted. Plan is burst of prednisone and discharged to home Discharge Plan Triage Chief Complaint: Shortness of Breath ED Provider: Luis Alberto Estrella Dx/Rx/DC Orders Clinical Impression: Asthma exacerbation attacks Instructions: ED Asthma, Acute (Adult) Prescriptions: New prednisone 20 MG tablet 60 mg PO DAILY Qty: 15 RF: 0 No Action albuterol sulfate 90 mcg/actuation HFA aerosol inhaler 1 - 2 puff inhalation Q6H PRN (Reason: shortness of breath or wheezing) Qty: 8.5 RF: 1 levothyroxine 150 mcg tablet 150 mcg PO DAILY Qty: 90 RF: 1 omeprazole 40 mg capsule,delayed release(DR/EC) 40 mg PO DAILY Qty: 90 RF: 2 pramipexole 0.25 MG tablet 0.25 - 0.75 mg PO QHS RF: 0 calcium carbonate 500 mg calcium (1,250 mg) tablet,chewable 1,000 mg PO DAILY RF: 0 cholecalciferol (vitamin D3) 25 mcg (1,000 unit) tablet,chewable 2,000 unit PO DAILY RF: 0 trazodone 50 mg tablet 50 - 150 mg PO QHS PRN (Reason: Sleep) RF: 0 montelukast [Singulair] 10 mg tablet 10 mg PO QHS PRN PRN (Reason: ALLERGIES) RF: 0 ferrous gluconate 324 mg (37.5 mg iron) Tablet 324 mg PO DAILY RF: 0 mecobalamin (vitamin B12) 5,000 mcg Tablet,Disintegrating 5,000 mcg PO DAILY RF: 0 fluoxetine 20 mg capsule 40 mg PO DAILY Qty: 180 RF: 0 rosuvastatin [Crestor] 40 mg tablet 40 mg PO DAILY Qty: 90 RF: 3 Primary Care Provider: Joseph Smyth Referrals: Joseph Smyth MD [Primary Care Provider] - Disposition Disposition: Home, Self Care
[2021-05-05 09:05] VITALS: PULSE 98; RESP 19; O2SAT 96
[2021-05-05] MEDS: Albuterol 2.5 MG/3 ML VIAL.NEB. INHALATION ×3 (09:05→10:29)
[2021-05-05] MEDS: predniSONE 20 MG Tablet 60 MG PO (09:05)
[2021-05-05 10:29] VITALS: PULSE 100; RESP 19
[2021-05-05 10:44] VITALS: BP 138/72; PULSE 84; RESP 17; O2SAT 98
== END 2021-05-05 10:45 | disposition home or self-care (01) ==
PROVIDERS: Emergency Provider Emergency Medicine; PCP Internal Medicine
DX: J45.901 Unspecified asthma with (acute) exacerbation (principal); I10 Essential (primary) hypertension; E78.5 Hyperlipidemia, unspecified; E03.9 Hypothyroidism, unspecified; F41.9 Anxiety disorder, unspecified; M19.90 Unspecified osteoarthritis, unspecified site; F32.A Depression, unspecified; E66.9 Obesity, unspecified; Z79.51 Long term (current) use of inhaled steroids; Z79.899 Other long term (current) drug therapy; Z87.891 Personal history of nicotine dependence
CPT/HCPCS: 94640; 99284

== ENCOUNTER 2021-09-04 08:28 | Outpatient (CLI) | payer MEDICARE, SELFPAY ==
[2021-09-04 12:22] LABS: Absolute Lymphocyte Count 1.78 X10^3/uL (0.83-4.51); Absolute Neutrophil Count 6.9 X10^3/uL (2.0-7.7); Basophil# 0.03 X10^3/uL; Basophil% 0.3 % (0-1); Eosinophil# 0.07 X10^3/uL; Eosinophils% 0.7 % (0-5); Hemoglobin 13.9 g/dL (12.0-15.0); Lymphocyte # 1.78 X10^3/ul (0.83-4.51); Lymphocyte % 18.8 % (19-41); Mean Corp Hgb Conc 32.3 g/dL (32-36); Mean Corpuscular Hgb 30.3 pg (27.0-32.0); Mean Corpuscular Volume 93.9 fL (81-99); Mean Platelet Vol. 9.9 fl (6.2-12.0); Monocyte# 0.67 X10^3/uL; Monocyte% 7.1 % (0-10); NRBC Flagged by Analyzer 0 % (0-5); Neutrophil # 6.91 X10^3/uL (2.7-7.7); Neutrophil % 72.8 % (47-70); Platelet Count 320 K/mm3 (150-450); RBC Distribution Width SD 44.5 fl (35.1-43.9); Red Blood Count 4.58 M/mm3 (4.2-5.4); White Blood Count 9.5 K/mm3 (4.4-11.0)
[2021-09-04 13:02] LABS: ALB/GLOB Ratio 0.9 RATIO (0.9-2.4); AST(SGOT) 27 U/L (15-37); Alanine Aminotransfer ALT/SGPT 60 U/L (13-56); Albumin, Serum 3.5 g/dL (3.2-5.0); Alkaline Phosphatase 96 U/L (45-117); Anion Gap 6 (5-15); BUN 20 mg/dL (7-18); BUN/Creat Ratio 23.2 RATIO (10-20); Chloride 103 mmol/L (98-107); Cholesterol 193 mg/dL (200); Creatinine, Serum 0.86 mg/dL (0.55-1.02); EST Glomerular Filtration Rate 70 mL/min (>60); Est Glom Filt Rate - Afr Amer 85 mL/min (>60); Globulin 3.7 g/dL (2.2-4.2); Glucose 128 mg/dL (74-106); High Density Lipoprotein 75 mg/dL; Potassium 3.7 mmol/L (3.5-5.1); Protein, Total 7.2 g/dL (6.4-8.2); Sodium Level 137 mmol/L (136-145); Thyroid Stim Hormone (TSH) 1.19 uIU/mL (0.358-3.74); Triglycerides 79 mg/dL; Very Low Density Lipoprotein 16 mg/dL (5-40)
== END 2021-09-04 23:59 | disposition home or self-care (01) ==
LOC: BIMLAB 08:29
PROVIDERS: PCP Internal Medicine; Referring Provider Internal Medicine; Visit Provider Internal Medicine
DX: E78.5 Hyperlipidemia, unspecified (principal); E03.9 Hypothyroidism, unspecified
CPT/HCPCS: 36415; 80053; 80061; 84443; 85025

== ENCOUNTER 2021-09-21 17:43 | Emergency (ER) | payer MEDICARE, SELFPAY ==
[2021-09-21 17:45] VITALS: BP 156/104; PULSE 85; RESP 18; TEMP 36.4; O2SAT 95; BMI 47.0
--- NOTE | 2021-09-21 18:15 | EDS_ITS ---
HPI History of Present Illness Chief Complaint: Laceration Narrative Narrative: Patient presents with laceration to the medial aspect of her left thumbnail. She is right-hand dominant. 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 She is unsure of her last tetanus immunization. She denies other injury. [facility] Medical History Anxiety Arthritis Arthritis Asthma exacerbation Back problem Barretts esophagus Chest congestion Chest pain Depression (emotion) Diverticulitis Epigastric abdominal tenderness Essential hypertension Family history of coronary artery disease Health care maintenance History of gallstones Hyperlipemia Hypothyroidism Insomnia Morbid obesity with BMI of 40.0-44.9, adult Respiratory insufficiency Routine health maintenance Scoliosis Shortness of breath Sinusitis Home Medications calcium carbonate 500 mg calcium (1,250 mg) chewable tablet 1,000 mg PO DAILY tab 06/22/20 [History Last Taken 12/05/20] cholecalciferol (vitamin D3) 25 mcg (1,000 unit) chewable tablet 2,000 unit PO DAILY tab 06/22/20 [History Last Taken 12/05/20] ferrous gluconate 324 mg PO DAILY 12/05/20 [History Last Taken 12/05/20] mecobalamin (vitamin B12) 5,000 mcg PO DAILY 12/05/20 [History Last Taken 12/05/20] omeprazole 40 mg capsule,delayed release 40 mg PO DAILY #90 cap 12/19/20 [Rx Last Taken Unknown] rosuvastatin 40 mg tablet 40 mg PO DAILY #90 tab 04/26/21 [Rx Last Taken Unknown] meloxicam 15 mg tablet 15 mg PO DAILY 05/15/21 [History Last Taken Unknown] pramipexole 0.25 mg tablet 0.25 - 0.75 mg PO QHS #30 tab 06/11/21 [Rx Last Taken Unknown] levothyroxine 150 mcg tablet 150 mcg PO DAILY #90 tablet 06/18/21 [Rx Last Taken Unknown] albuterol sulfate 90 mcg/actuation aerosol inhaler 2 - 3 puff INHALATION Q6H PRN #8.5 g 06/27/21 [Rx Last Taken Unknown] fluoxetine 40 mg capsule 40 mg PO DAILY #90 cap 07/08/21 [Rx Last Taken Unknown] trazodone 50 mg tablet 150 mg PO QHS PRN 90 Days #240 tab 09/04/21 [Rx Last Taken Unknown] budesonide-formoterol HFA 160 mcg-4.5 mcg/actuation aerosol inhaler 2 puff INHALATION BID #3 ea 09/11/21 [Rx Last Taken Unknown] cetirizine 10 mg capsule 10 mg PO HS #90 cap 09/11/21 [Rx Last Taken Unknown] fluticasone propionate 50 mcg/actuation nasal spray,suspension 2 spray INTR ANASAL DAILY #3 ea 09/11/21 [Rx Last Taken Unknown] montelukast 10 mg tablet 10 mg PO QHS PRN PRN #90 tab 09/11/21 [Rx Last Taken Unknown] Allergy/AdvReac Type Severity Reaction Status Date / Time pravastatin [From Pravachol] Allergy Mild itching Verified 09/21/21 17:44 ketoprofen [From Orudis] Allergy Nausea/Vom/ Verified 09/21/21 17:44 Diarrhea Family History Sister CAD (coronary artery disease) Thyroid disorder Brother CAD (coronary artery disease) Heart disease Myocardial infarction Alcoholism Angina at rest Mother Diabetes Myocardial infarction Father Hypertension Heart disease Myocardial infarction Angina at rest Thyroid disorder Grandfather Alcoholism Surgical History History of cholecystectomy (~1998) History of colonoscopy History of esophagogastroduodenoscopy (EGD) (~2015) History of hysterectomy (~1998) Social History household members: none Smoking Status: Former smoker quit date: 06/15/84 Tobacco: How many years used: 15 Electronic Cigarette Use: not used how long ago did patient quit smokin years second hand exposure: No alcohol intake: current alcohol intake frequency: holidays/special occasions only Alcohol type: wine substance use type: does not use what type of physical activity do you participate in: none ROS ROS ED ROS Narrative Constitutional: No fever, no chills. HEENT: No sore throat. No neck pain. No loss of vision. No rhinorrhea. Cardiovascular: No chest pain. No palpitations. No pedal edema. Respiratory: No cough, no shortness of breath. Abdominal: No abdominal pain. No nausea. No vomiting. Genitourinary: No dysuria. No hematuria. Musculoskeletal: No myalgias. No arthralgias. Neurologic: No headaches. No dizziness. No lightheadedness. Skin: No rash. No change in color. Laceration to left thumb near nail. Psychiatric: No depression. No anxiety. EXAM Physical Exam Narrative Exam Narrative: Afebrile. Vital signs noted. HEENT: Normocephalic. Atraumatic. PERRL, EOMI. Neck soft and supple. No point tenderness or step off. Cardiovascular: Regular rate and rhythm. No murmurs, rubs, or gallops appreciated. Respiratory: No tachypnea. Lungs clear to auscultation bilaterally. Gastrointestinal: Abdomen soft, nontender, with normoactive bowel sounds. No rebound or guarding. Neurological: Awake. Alert. Nonfocal, nonlateralizing. Skin: No rash. Normal color. No pallor. Less than 1 cm laceration on medial aspect of left thumbnail, no active bleeding. No apparent nail involvement. Musculoskeletal: No pedal edema. Full range of motion extremities. Const Vital Signs: 09/21/21 17:45 Temperature 97.5 F L Temperature Source Temporal Pulse Rate 85 Respiratory Rate 18 Blood Pressure 156/104 H Blood Pressure Mean 121 Pulse Ox 95 Oxygen Delivery Method Room Air MDM MDM MDM Narrative Medical decision making narrative: There is no active bleeding. Her wound does not appear gaping. I discussed the use of sutures versus Steri-Strips with her. She prefers Steri-Strips. Her wound was cleansed. She was administered an Adacel immunization. Her wound was cleansed by RN and Steri-Stripped. At this point in time, I feel she be discharged safely home with follow-up. She was to look for signs of infection. Return instructions were reviewed. Disposition is discharged home in stable condition. Discharge Plan Triage Chief Complaint: Laceration ED Provider: Clarence Burnett Dx/Rx/DC Orders Clinical Impression: Dimbflbdjl-nyrwiak-ulwxgggwd (DTP) vaccination, Laceration of thumb, left Instructions: ED Laceration, Hand: All Closures Prescriptions: No Action omeprazole 40 mg capsule,delayed release(DR/EC) 40 mg PO DAILY Qty: 90 RF: 2 meloxicam 15 mg tablet 15 mg PO DAILY RF: 0 trazodone 50 mg tablet 150 mg PO QHS PRN (Reason: Sleep) 90 Days Qty: 240 RF: 2 budesonide-formoterol [Symbicort] 160-4.5 mcg/actuation HFA aerosol inhaler 2 puff inhalation BID Qty: 3 RF: 3 fluticasone propionate 50 mcg/actuation spray,suspension 2 spray intranasal DAILY Qty: 3 RF: 3 montelukast [Singulair] 10 mg tablet 10 mg PO QHS PRN PRN (Reason: ALLERGIES) Qty: 90 RF: 3 cetirizine 10 mg capsule 10 mg PO HS Qty: 90 RF: 3 calcium carbonate 500 mg calcium (1,250 mg) tablet,chewable 1,000 mg PO DAILY RF: 0 cholecalciferol (vitamin D3) 25 mcg (1,000 unit) tablet,chewable 2,000 unit PO DAILY RF: 0 ferrous gluconate 324 mg (37.5 mg iron) Tablet 324 mg PO DAILY RF: 0 mecobalamin (vitamin B12) 5,000 mcg Tablet,Disintegrating 5,000 mcg PO DAILY RF: 0 rosuvastatin [Crestor] 40 mg tablet 40 mg PO DAILY Qty: 90 RF: 3 pramipexole 0.25 mg tablet 0.25 - 0.75 mg PO QHS Qty: 30 RF: 0 levothyroxine 150 mcg tablet 150 mcg PO DAILY Qty: 90 RF: 1 albuterol sulfate 90 mcg/actuation HFA aerosol inhaler 2 - 3 puff inhalation Q6H PRN (Reason: shortness of breath or wheezing) Qty: 8.5 RF: 3 fluoxetine 40 mg capsule 40 mg PO DAILY Qty: 90 RF: 3 Primary Care Provider: Joseph Smyth Referrals: Joseph Smyth MD [Primary Care Provider] - 1 Week Disposition Disposition: Home, Self Care
[2021-09-21] MEDS: Diphth,Pertuss(Acell),Tet Vac 0.5 ML Vial IM (18:26)
[2021-09-21 18:30] VITALS: BP 166/70; PULSE 72; RESP 16; O2SAT 93
[2021-09-21 18:46] VITALS: PULSE 70; RESP 18; O2SAT 97
== END 2021-09-21 18:47 | disposition home or self-care (01) ==
PROVIDERS: Emergency Provider Emergency Medicine; PCP Internal Medicine; Visit Provider Emergency Medicine
DX: S61.012A Laceration without foreign body of left thumb without damage to nail, initial encounter (principal); E66.01 Morbid (severe) obesity due to excess calories; Z68.41 Body mass index [BMI] 40.0-44.9, adult; Z87.891 Personal history of nicotine dependence; I10 Essential (primary) hypertension; Z23 Encounter for immunization; Z79.899 Other long term (current) drug therapy; Z79.890 Hormone replacement therapy; Z79.51 Long term (current) use of inhaled steroids; W26.0XXA Contact with knife, initial encounter; Y93.G3 Activity, cooking and baking; Y99.9 Unspecified external cause status; Y92.9 Unspecified place or not applicable; M19.90 Unspecified osteoarthritis, unspecified site; J45.909 Unspecified asthma, uncomplicated; E78.5 Hyperlipidemia, unspecified; M41.9 Scoliosis, unspecified; E03.9 Hypothyroidism, unspecified; F32.A Depression, unspecified; F41.9 Anxiety disorder, unspecified
CPT/HCPCS: 90471; 90715; 99283

== ENCOUNTER 2021-09-24 07:06 | Outpatient (CLI) | payer MEDICARE, SELFPAY ==
--- NOTE | 2021-09-24 07:08 | BI_ITS ---
MAMMOGRAPHY - BILATERAL SCREENING REASON FOR EXAM: Female, 66 years old. Routine annual screening examination. PERTINENT HISTORY: Non-contributory. TECHNIQUE: Digital bilateral breast hanane (3D mammographic acquisition) in the CC and MLO projections. 2-D mediolateral oblique (MLO) and craniocaudad (CC) views of both breasts were obtained. CAD: Full Field Digital Mammography with Computer Added Detection was performed. COMPARISON: Comparison is made with prior study dated 08/02/2020 and 11/27/1999. FINDINGS: Breast Composition: There are scattered areas of fibroglandular density. There are no dominant masses or suspicious calcifications. Stable 5.9 mm well-defined nodule in the central slightly medial aspect of the right breast. This was demonstrated to be a cyst on prior sonogram. No other significant abnormalities are identified. There has been no significant change since the prior study. BI/SCRN MAMM (CAD)W/HANANE BILAT IMPRESSION: Stable bilateral screening mammogram. Yearly follow-up mammogram recommended. (A) ASSESSMENT CATEGORY: BIRADS Category 2: Benign. A letter regarding these results will be sent to the patient by the facility within 30 days. Approximately 10% of breast cancers are not detected by mammography. A normal mammogram should not delay biopsy of a clinically suspicious abnormality. [id number] Electronically Signed: Ad Conner MD at 8:28 EDT ,
== END 2021-09-24 23:59 | disposition home or self-care (01) ==
LOC: OPBI 07:07
PROVIDERS: PCP Internal Medicine; Referring Provider Internal Medicine; Visit Provider Internal Medicine
DX: Z12.31 Encounter for screening mammogram for malignant neoplasm of breast (principal)
CPT/HCPCS: 77063; 77067

== ENCOUNTER → 2021-10-08 | Outpatient (CLI) | payer MEDICARE, SELFPAY ==
[2021-10-08 12:14] LABS: Absolute Lymphocyte Count 2.05 X10^3/uL (0.83-4.51); Absolute Neutrophil Count 5.8 X10^3/uL (2.0-7.7); Basophil# 0.06 X10^3/uL; Basophil% 0.7 % (0-1); Eosinophil# 0.24 X10^3/uL; Eosinophils% 2.7 % (0-5); Hematocrit 40.8 % (37-47); Hemoglobin 13.3 g/dL (12.0-15.0); Lymphocyte # 2.05 X10^3/ul (0.83-4.51); Lymphocyte % 23.1 % (19-41); Mean Corp Hgb Conc 32.6 g/dL (32-36); Mean Corpuscular Hgb 30.6 pg (27.0-32.0); Mean Corpuscular Volume 93.8 fL (81-99); Mean Platelet Vol. 9.7 fl (6.2-12.0); Monocyte# 0.71 X10^3/uL; NRBC Flagged by Analyzer 0 % (0-5); Neutrophil # 5.76 X10^3/uL (2.7-7.7); Platelet Count 277 K/mm3 (150-450); RBC Distribution Width CV 13.2 % (11.6-14.6); Red Blood Count 4.35 M/mm3 (4.2-5.4); White Blood Count 8.9 K/mm3 (4.4-11.0)
[2021-10-08 12:25] LABS: ALB/GLOB Ratio 0.9 RATIO (0.9-2.4); AST(SGOT) 25 U/L (15-37); Alanine Aminotransfer ALT/SGPT 43 U/L (13-56); Albumin, Serum 3.5 g/dL (3.2-5.0); Alkaline Phosphatase 85 U/L (45-117); Anion Gap 6 (5-15); BUN 26 mg/dL (7-18); BUN/Creat Ratio 30.7 RATIO (10-20); Calcium,Total 8.9 mg/dL (8.5-10.1); Chloride 106 mmol/L (98-107); Creatinine, Serum 0.85 mg/dL (0.55-1.02); EST Glomerular Filtration Rate 71 mL/min (>60); Est Glom Filt Rate - Afr Amer 86 mL/min (>60); Globulin 3.7 g/dL (2.2-4.2); Glucose 107 mg/dL (74-106); Magnesium 2.3 mg/dL (1.6-2.6); Protein, Total 7.2 g/dL (6.4-8.2); Sodium Level 138 mmol/L (136-145)
[2021-10-08 12:27] LABS: BNP,B-Type NATRIURETIC PEPTIDE 23.2 pg/mL (0-100)
== END | disposition home or self-care (01) ==
LOC: BIMLAB 10:35
PROVIDERS: PCP Internal Medicine; Referring Provider Physician Assistant; Visit Provider Physician Assistant
DX: R06.02 Shortness of breath (principal); I27.20 Pulmonary hypertension, unspecified; I10 Essential (primary) hypertension; J45.40 Moderate persistent asthma, uncomplicated; E78.5 Hyperlipidemia, unspecified; R25.2 Cramp and spasm
CPT/HCPCS: 36415; 80053; 83735; 83880; 85025

== ENCOUNTER 2021-10-28 06:02 | Day surgery (SDC) | payer MEDICARE, SELFPAY ==
[2021-10-28 06:24] VITALS: BP 154/74; PULSE 68; RESP 16; TEMP 37; O2SAT 96; BMI 45.7
[2021-10-28] MEDS: Lactated Ringers 1,000 ML 30 ML IV (06:41)
[2021-10-28] MEDS: Bupivacaine Mpf 0.5% 30 ML VIAL (06:56)
--- NOTE | 2021-10-28 07:45 | RAD_ITS ---
PROCEDURE: Bilateral T7-T9 medial branch nerve block. DATE OF EXAMINATION: 10/28/2021. INDICATION: Female, 66 years old. Back pain FLUOROSCOPY TIME (if supplied): (19.6 seconds) minutes/seconds. 7 images were obtained. RAD/Thoracic Spine Min 4 Views IMPRESSION: Intraoperative imaging provided for bilateral T7-T9 medial branch nerve block. Electronically Signed: Ad Conner MD at 12:21 EDT ,
[2021-10-28] MEDS: MethylPREDNISolone Acetate 80 MG/ML Vial (07:48)
[2021-10-28] MEDS: 0.9% Normal Saline (Pres. free 10 ML Vial (07:48)
[2021-10-28] MEDS: Lidocaine 1% (5 ml sdv) 5 ML Vial (07:48)
[2021-10-28 07:57] VITALS: BP 133/81; BP 154/74; PULSE 70; RESP 18; TEMP 37.3; O2SAT 96
[2021-10-28 08:00] VITALS: BP 147/83; BP 154/74; PULSE 73; RESP 16; O2SAT 93
[2021-10-28 08:06] VITALS: BP 151/68; BP 154/74; PULSE 69; RESP 16; O2SAT 94
[2021-10-28 08:10] VITALS: BP 143/66; BP 154/74; PULSE 67; RESP 16; TEMP 36.9; O2SAT 94
[2021-10-28 08:18] VITALS: BP 154/74
--- NOTE | 2021-10-28 10:33 | OP.PCM_ITS ---
Report of Operation Date of Procedure: 10/28/21 Pre-Operative Diagnosis: Thoracic spondylosis, thoracic degenerative disc disea se, thoracic facet arthropathy Post-Operative Diagnosis: Thoracic spondylosis, thoracic degenerative disc disease, thoracic facet arthropathy Surgery/Procedure Performed:: Bilateral thoracic medial branch injection at T7, T8, T9 Description of Surgical Findings:: DESCRIPTION OF PROCEDURE: History and physical of today was reviewed. Risks and benefits of the procedure were explained. The patient understood and agreed to proceed. Informed consent was obtained. IV inserted per routine protocol. The patient was taken to the operating room and placed in the prone position with a pillow positioned underneath the chest. The mid back area was prepped and draped in a sterile fashion using iodine x3. Under fluoroscopy guidance on AP view, the T5 through T8 vertebral bodies were visualized. The skin and subcutaneous tissue was anesthetized with approximately 5 mL of 1% lidocaine using a 25-gauge regular needle. Under direct visualization on fluoroscopy, at approximately 15-degree angle, starting on the left T7, ending on the right T7 passing through T8-T9 bilaterally, using a 22-gauge 3-1/2-inch spinal needle, the needle was passed through the skin. The tip of the needle was maneuvered and directed towards the epiphyseal junction of each corresponding vertebra. Once the tip of the needle was at the vicinity of the medial branch and in contact with the bone, the needle was pulled approximately 2 mm off the bone. After negative aspiration for blood or CSF and confirmation on AP as well as oblique view and lateral view, a total of 12 mL of preservative-free 0.25% Marcaine with 80 mg of Depo- Medrol was injected in divided doses between those 6 levels. The needles were then removed intact. The patient experienced no sign or symptoms of intrathecal or intravascular injection. The patient experienced no paresthesia. The procedure was completed without any apparent difficulty or any complications. The patient appeared to tolerate it well. ASSESSMENT AND PLAN: This is a 66-year-old female with Thoracic spondylosis, thoracic degenerative disc disease, thoracic facet arthropathy status post bilateral thoracic medial branch block at T6-T9, the patient will continue her current medications, the patient will follow in approximately 1-2 weeks for reevaluation. Type of Anesthesia: MAC Estimated Blood Loss (mL): Minimal Complications None.
== END 2021-10-28 08:26 | disposition home or self-care (01) ==
LOC: SDC 06:10 → AC 06:12
PROVIDERS: PCP Internal Medicine; Referring Provider Anesthesiology Pain Medicine; Visit Provider Anesthesiology Pain Medicine
PROC: 3E0R3BZ Introduction of Anesthetic Agent into Spinal Canal, Percutaneous Approach (ICD-10-PCS; CPT 62281; principal; 2021-10-28 07:25)
DX: M51.34 Other intervertebral disc degeneration, thoracic region (principal); M47.814 Spondylosis without myelopathy or radiculopathy, thoracic region; M41.34 Thoracogenic scoliosis, thoracic region; G47.33 Obstructive sleep apnea (adult) (pediatric); E03.9 Hypothyroidism, unspecified; F32.A Depression, unspecified; Z79.899 Other long term (current) drug therapy; Z79.890 Hormone replacement therapy; Z79.51 Long term (current) use of inhaled steroids
CPT/HCPCS: 64491; 64492; 64490; 72074; J7120; J3490

== ENCOUNTER → 2021-11-05 | Outpatient (CLI) | payer MEDICARE, SELFPAY ==
[2021-11-05 13:09] LABS: Anion Gap 8 (5-15); BUN 14 mg/dL (7-18); BUN/Creat Ratio 14.8 RATIO (10-20); Calcium,Total 8.9 mg/dL (8.5-10.1); Chloride 103 mmol/L (98-107); Creatinine, Serum 0.94 mg/dL (0.55-1.02); EST Glomerular Filtration Rate 63 mL/min (>60); Est Glom Filt Rate - Afr Amer 76 mL/min (>60); Glucose 143 mg/dL (74-106); Potassium 3.6 mmol/L (3.5-5.1); Sodium Level 137 mmol/L (136-145)
== END | disposition home or self-care (01) ==
LOC: BIMLAB 08:13
PROVIDERS: PCP Internal Medicine; Referring Provider Physician Assistant; Visit Provider Physician Assistant
DX: I10 Essential (primary) hypertension (principal)
CPT/HCPCS: 36415; 80048

== ENCOUNTER 2021-12-30 07:43 | Day surgery (SDC) | payer MEDICARE, SELFPAY ==
[2021-12-30] VITALS (7 sets, daily range): BP systolic 113–147; BP diastolic 62–83; PULSE 53–71; RESP 12–18; TEMP 36.2–36.9; O2SAT 93–96; BMI 45.9
[2021-12-30] MEDS: Lactated Ringers 1,000 ML 15 ML IV (08:23)
--- NOTE | 2021-12-30 08:46 | RAD_ITS ---
PROCEDURE: Thoracic medial nerve block. DATE OF EXAMINATION: 12/30/2021 INDICATION: Female, 66 years old. Back pain. FLUOROSCOPY TIME (if supplied): (21.3 seconds) minutes/seconds. 7 images were obtained. RAD/Fluor Guidance for Spine Inj IMPRESSION: Intraoperative fluoroscopic services provided for bilateral thoracic medial nerve block. Electronically Signed: Ad Conner MD at 10:00 EDT ,
[2021-12-30] MEDS: MethylPREDNISolone Acetate 80 MG/ML Vial (08:55)
[2021-12-30] MEDS: Lidocaine 1% (5 ml sdv) 5 ML Vial (08:56)
[2021-12-30] MEDS: Bupivacaine 0.25% 30 ML Vial (08:56)
--- NOTE | 2021-12-30 09:52 | OP.PCM_ITS ---
Report of Operation Date of Procedure: 12/30/21 Description of Surgical Findings:: Pre-Operative Diagnosis:?Thoracic spondylosis, thoracic degenerative disc disease, thoracic facet arthropathy Post-Operative Diagnosis:?Thoracic spondylosis, thoracic degenerative disc disease, thoracic facet arthropathy Surgery/Procedure Performed::?Bilateral thoracic medial branch injection at T7, T8, T9 DESCRIPTION OF PROCEDURE:? History and physical of today was reviewed.? Risks a nd benefits of the procedure were explained.? The patient understood and agreed to proceed.? Informed consent was obtained.? IV inserted per routine protocol.? The patient was taken to the operating room and placed in the prone position with a pillow positioned underneath the chest.? The mid back area was prepped and draped in a sterile fashion using iodine x3.? Under fluoroscopy guidance on AP view, the T5 through T8 vertebral bodies were visualized.? The skin and subcutaneous tissue was anesthetized with approximately 5 mL of 1% lidocaine using a 25-gauge regular needle.? Under direct visualization on fluoroscopy, at approximately 15-degree angle, starting on the left T7, ending on the right T7 passing through T8-T9 bilaterally, using a 22-gauge 3-1/2-inch spinal needle, the needle was passed through the skin.? The tip of the needle was maneuvered and directed towards the epiphyseal junction of each corresponding vertebra.? Once the tip of the needle was at the vicinity of the medial branch and in contact with the bone, the needle was pulled approximately 2 mm off the bone.? After negative aspiration for blood or CSF and confirmation on AP as well as oblique view and lateral view, a total of 12 mL of preservative-free 0.25% Marcaine with 80 mg of Depo-Medrol was injected in divided doses between those 6 levels.? The needles were then removed intact.? The patient experienced no sign or symptoms of intrathecal or intravascular injection.? The patient experienced no paresthesia.? The procedure was completed without any apparent difficulty or any complications.? The patient appeared to tolerate it well. ASSESSMENT AND PLAN:? This is a 66-year-old female with Thoracic spondylosis, thoracic degenerative disc disease, thoracic facet arthropathy status post bilateral thoracic medial branch block at T6-T9, the patient will continue her current medications, the patient will follow in approximately 1-2 weeks for reevaluation. Type of Anesthesia:?MAC Estimated Blood Loss (mL):?Minimal Complications None.
== END 2021-12-30 09:53 | disposition home or self-care (01) ==
LOC: SDC 07:49 → AC 07:51
PROVIDERS: PCP Internal Medicine; Referring Provider Anesthesiology Pain Medicine; Visit Provider Anesthesiology Pain Medicine
PROC: 3E0R3BZ Introduction of Anesthetic Agent into Spinal Canal, Percutaneous Approach (ICD-10-PCS; CPT 62281; principal; 2021-12-30 09:15)
DX: M47.814 Spondylosis without myelopathy or radiculopathy, thoracic region (principal); M51.34 Other intervertebral disc degeneration, thoracic region; R05.3 Chronic cough; G47.33 Obstructive sleep apnea (adult) (pediatric); E03.9 Hypothyroidism, unspecified; E78.5 Hyperlipidemia, unspecified; I10 Essential (primary) hypertension; I87.2 Venous insufficiency (chronic) (peripheral); J45.909 Unspecified asthma, uncomplicated
CPT/HCPCS: 64491; 64490; 77003; J7120

== ENCOUNTER → 2022-01-14 | Outpatient (CLI) | payer MEDICARE, SELFPAY ==
[2022-01-14 12:56] LABS: Anion Gap 6 (5-15); BUN 18 mg/dL (7-18); BUN/Creat Ratio 18.6 RATIO (10-20); Calcium,Total 9.2 mg/dL (8.5-10.1); Chloride 101 mmol/L (98-107); Creatinine, Serum 0.97 mg/dL (0.55-1.02); EST Glomerular Filtration Rate 61 mL/min (>60); Est Glom Filt Rate - Afr Amer 74 mL/min (>60); Glucose 129 mg/dL (74-106); Potassium 3.2 mmol/L (3.5-5.1); Sodium Level 138 mmol/L (136-145)
== END | disposition home or self-care (01) ==
PROVIDERS: PCP Internal Medicine; Visit Provider Internal Medicine
DX: I10 Essential (primary) hypertension (principal)
CPT/HCPCS: 36415; 80048

== ENCOUNTER → 2022-01-21 | Outpatient (CLI) | payer MEDICARE, SELFPAY ==
[2022-01-21 12:45] LABS: Anion Gap 7 (5-15); BUN 18 mg/dL (7-18); BUN/Creat Ratio 17.6 RATIO (10-20); Calcium,Total 9.2 mg/dL (8.5-10.1); Chloride 101 mmol/L (98-107); Creatinine, Serum 1.02 mg/dL (0.55-1.02); EST Glomerular Filtration Rate 58 mL/min (>60); Est Glom Filt Rate - Afr Amer 70 mL/min (>60); Glucose 116 mg/dL (74-106); Potassium 3.4 mmol/L (3.5-5.1); Sodium Level 137 mmol/L (136-145)
== END | disposition home or self-care (01) ==
LOC: BIMLAB 08:53
PROVIDERS: PCP Internal Medicine; Referring Provider Internal Medicine; Visit Provider Internal Medicine
DX: I10 Essential (primary) hypertension (principal)
CPT/HCPCS: 36415; 80048

== ENCOUNTER 2022-03-17 06:15 | Day surgery (SDC) | payer MEDICARE, SELFPAY ==
[2022-03-17 06:41] VITALS: BP 113/62; PULSE 80; RESP 18; TEMP 36.1; O2SAT 98; BMI 45.8
[2022-03-17] MEDS: Lactated Ringers 1,000 ML 15 ML IV (06:54)
--- NOTE | 2022-03-17 07:00 | RAD_ITS ---
PROCEDURE: Left T7-T9 and radiofrequency ablation. DATE OF EXAMINATION: 03/16/2022 INDICATION: Female, 66 years old. Left-sided back pain. FLUOROSCOPY TIME (if supplied): (27 seconds) minutes/seconds. 8 images were submitted. RAD/Thoracic Spine 2 Views IMPRESSION: Intraoperative imaging provided for left-sided T7-T9 radiofrequency ablation. Electronically Signed: Ad Conner MD at 15:01 EDT ,
[2022-03-17] MEDS: Lidocaine 1% (30 ml sdv) 30 ML Vial (07:56)
[2022-03-17] MEDS: MethylPREDNISolone Acetate 40 MG/ML Vial IM (07:56)
--- NOTE | 2022-03-17 08:20 | OP.PCM_ITS ---
Report of Operation Date of Procedure: 03/17/22 Description of Surgical Findings:: PREOPERATIVE DIAGNOSES: 1. Thoracic spondylosis. 2. Thoracic degenerative disk disease. 3. Thoracic facet arthropathy. POSTOPERATIVE DIAGNOSES: 1. Thoracic spondylosis. 2. Thoracic degenerative disk disease. 3. Thoracic facet arthropathy. PROCEDURE PERFORMED: Left -sided thoracic radiofrequency ablation of the medial branch at T7, T8, T9. ANESTHESIA: MAC. BLOOD LOSS: Minimal. COMPLICATIONS: None. DESCRIPTION OF PROCEDURE: History and physical of today was reviewed. Risks and benefits of the procedure were explained. The patient understood and agreed to proceed. Informed consent was obtained. IV inserted per routine protocol. The patient was taken to the operating room and placed in the prone position with a pillow positioned underneath the chest. The mid back area was prepped and draped in a sterile fashion using iodine x3. Under fluoroscopy guidance in an oblique view, the T7 through T10 vertebral bodies were visualized. The skin and subcutaneous tissue was anesthetized with approximately 10 mL of 1% lidocaine using a 25-gauge regular needle. Under direct visualization on fluoro scopy at approximately 25-degree angle, starting on the left 10, ending on the left T7, passing through the T8 and T9, using a 20-gauge 10-cm with a 10-mm curved active-tip radiofrequency ablation needle, the needle was passed through the skin. The tip of the needle was maneuvered and directed towards the epiphyseal junction of each corresponding vertebra. Once the tip of the needle was at the vicinity of the medial branch and in contact with the bone, the needle was pulled approximately 2 mm off the bone. The stylette of each needle was then removed. After negative aspiration of blood or CSF and confirmation on AP, oblique as well as lateral view, the radiofrequency ablation probe was then inserted at each level. Impedance was then recorded at T7 to be 256 ohm, at T8 to be 313 ohm, at T9 to be 357ohm, and at T10 to be 286 ohm. Motor-evoked potential was then initiated to 1.5 volts without any motor response at each corresponding level. The probe was then removed intact and a total of 8 cc of preservative-free 2% lidocaine was injected in divided doses between those four levels after negative aspiration of blood or CSF. The radiofrequency ablation probe was then reinserted. After confirmation on AP, oblique as well as lateral view, radiofrequency ablation was then initiated to 80 degree Celsius for 90 second at each level. Once concluded, the probe was then removed intact. A total of 6 cc of preservative-free 0.25% Marcaine with 40 mg of Depo-Medrol was injected in divided doses between those four levels. The needles were then removed intact. The patient experienced no sign or symptoms of intrathecal or intravascular injection. The patient experienced no paresthesia. Assessment and plan: This is a 66-year-old female with thoracic spondylosis, thoracic degenerative disc disease, thoracic facet arthropathy, status post left-sided thoracic radiofrequency ablation of the medial branch at T7-T9, patient will continue her current medications, patient will follow in approximately 2 weeks for reevaluation.
[2022-03-17 08:21] VITALS: BP 113/62; BP 122/82; PULSE 76; RESP 16; TEMP 36.7; O2SAT 92
[2022-03-17 08:25] VITALS: BP 113/62; BP 139/85; PULSE 71; RESP 16; O2SAT 97
[2022-03-17 08:29] VITALS: BP 113/62; BP 125/102; PULSE 74; RESP 16; O2SAT 93
[2022-03-17 08:34] VITALS: BP 113/62; BP 138/53; PULSE 70; RESP 16; TEMP 36.8; O2SAT 97
[2022-03-17 08:50] VITALS: BP 113/62
== END 2022-03-17 08:55 | disposition home or self-care (01) ==
LOC: SDC 06:16 → AC 06:17
PROVIDERS: PCP Internal Medicine; Referring Provider Anesthesiology Pain Medicine; Visit Provider Anesthesiology Pain Medicine
PROC: (CPT 64633; principal; 2022-03-17 08:00)
DX: M51.34 Other intervertebral disc degeneration, thoracic region (principal); I27.20 Pulmonary hypertension, unspecified; E66.01 Morbid (severe) obesity due to excess calories; Z68.42 Body mass index [BMI] 45.0-49.9, adult; M47.814 Spondylosis without myelopathy or radiculopathy, thoracic region; I10 Essential (primary) hypertension; J45.909 Unspecified asthma, uncomplicated; K21.9 Gastro-esophageal reflux disease without esophagitis; E03.9 Hypothyroidism, unspecified; E78.5 Hyperlipidemia, unspecified; G47.33 Obstructive sleep apnea (adult) (pediatric); M41.9 Scoliosis, unspecified; G25.81 Restless legs syndrome; Z79.899 Other long term (current) drug therapy; Z78.0 Asymptomatic menopausal state
CPT/HCPCS: 64633; 64634 ×2; 01992; 72070; 76000; J7120

== ENCOUNTER 2022-04-03 04:18 | Emergency (ER) | payer MEDICARE, SELFPAY ==
[2022-04-03 04:19] VITALS: BP 174/80; PULSE 94; RESP 18; TEMP 36.7; O2SAT 98; BMI 45.3
[2022-04-03 04:53] LABS: Mucous, Urine 0 SEEN /hpf (<or=2+); Red Blood Cells-Urine 0 SEEN /hpf (0-5)
--- NOTE | 2022-04-03 04:55 | EX.ED.DYSGE1 ---
HPI History of Present Illness Chief Complaint: Complaint Narrative Narrative: Patient is a 66-year-old female with past medical history of hypertension hyperlipidemia and hypothyroidism. She states that going back roughly 1 month ago to February she is had intermittent irritation with urination. She states that she will feel like she has to go but then minimal urine comes out and it is painful in nature. She states that she was seen approximately 10 days ago on March 22 for similar symptoms and placed on a 5-day course of Bactrim. She states she felt better for approximately 1 to 2 days and then her symptoms returned. She also states that she has noticed some left-sided flank pain but states that the 2 areas of pain in the stomach and back are separate and there is no radiation between them. Because of her recurrent nature of symptoms she presents for evaluation [facility] Medical History Anxiety Arthritis Asthma exacerbation Back problem Barretts esophagus BiPAP (biphasic positive airway pressure) dependence Cardiology follow-up encounter Chest congestion Chest pain Depression (emotion) Diverticulitis Epigastric abdominal tenderness Essential hypertension Family history of coronary artery disease Former smoker Gastric reflux Health care maintenance History of diverticulitis History of echocardiogram History of edema History of gallstones History of stress test Hyperlipemia Hypothyroidism Injury of back Insomnia Leg cramps Marijuana use Morbid obesity with BMI of 40.0-44.9, adult Musculoskeletal back pain Post-menopausal Respiratory insufficiency Restless legs Routine health maintenance Scoliosis Shortness of breath Sinusitis Sleep apnea Venous insufficiency of both lower extremities Wears glasses Home Medications calcium carbonate 500 mg calcium (1,250 mg) chewable tablet 1,000 mg PO DAILY 06/22/20 [History Last Taken 12/05/20] cholecalciferol (vitamin D3) 25 mcg (1,000 unit) chewable tablet 2,000 unit PO DAILY 06/22/20 [History Last Taken 12/05/20] ferrous gluconate 324 mg (37.5 mg iron) tablet 324 mg PO DAILY SUPPLEMENT 12/05/20 [History Last Taken 12/05/20] mecobalamin (vitamin B12) 5,000 mcg disintegrating tablet 5,000 mcg PO DAILY SUPPLEMENT 12/05/20 [History Last Taken 12/05/20] rosuvastatin 40 mg tablet (Crestor) 40 mg PO DAILY #90 tabs 04/26/21 [Rx Last Taken Unknown] albuterol sulfate 90 mcg/actuation aerosol inhaler 2 - 3 puff inhalation Q6H PRN shortness of breath or wheezing #8.5 grams 06/27/21 [Rx Last Taken Unknown] budesonide-formoterol HFA 160 mcg-4.5 mcg/actuation aerosol inhaler (Symbicort) 2 puff inhalation BID #3 ea 09/11/21 [Rx Last Taken Unknown] fluticasone propionate 50 mcg/actuation nasal spray,suspension 2 spray intranasal DAILY #3 ea 09/11/21 [Rx Last Taken Unknown] fluoxetine 40 mg capsule 40 mg PO DAILY #90 caps 10/04/21 [Rx Last Taken Unknown] blood pressure test kit-large #1 ea 10/08/21 [Rx Last Taken Unknown] triamterene 37.5 mg-hydrochlorothiazide 25 mg tablet 1 tab PO QAM #90 tabs 12/03/21 [Rx Last Taken Unknown] montelukast 10 mg tablet (Singulair) 10 mg PO QHS ALLERGIES 01/21/22 [History Last Taken Unknown] trazodone 50 mg tablet 150 mg PO QHS PRN Sleep 3 months #240 tabs 01/29/22 [Rx Last Taken Unknown] cetirizine 10 mg capsule 10 mg PO DAILY 02/05/22 [History Last Taken Unknown] potassium chloride 20 mEq tablet,extended release 20 meq PO DAILY #30 tabs 02/24/22 [Rx Last Taken Unknown] omeprazole 20 mg capsule,delayed release 20 mg PO DAILY 02/25/22 [History Last Taken Unknown] levothyroxine 150 mcg tablet 150 mcg PO DAILY #90 tabs 03/05/22 [Rx Last Taken Unknown] pramipexole 0.25 mg tablet 0.25 - 0.75 mg PO QHS RLS #90 tabs 03/05/22 [Rx Last Taken Unknown] cephalexin 500 mg capsule 500 mg PO TID 10 days #30 caps 04/03/22 [Rx Last Taken Unknown] phenazopyridine 200 mg tablet (Pyridium) 200 mg PO TID 2 days #6 tabs 04/03/22 [Rx Last Taken Unknown] Allergy/AdvReac Type Severity Reaction Status Date / Time pravastatin [From Pravachol] Allergy Mild itching Verified 04/03/22 04:22 ketoprofen [From Orudis] Allergy Nausea/Vom/ Verified 04/03/22 04:22 Diarrhea Family History Sister CAD (coronary artery disease) Thyroid disorder Brother CAD (coronary artery disease) Heart disease Myocardial infarction Alcoholism Angina at rest Mother Diabetes Myocardial infarction Father Hypertension Heart disease Myocardial infarction Angina at rest Thyroid disorder Grandfather Alcoholism Surgical History History of cholecystectomy (~1998) History of colonoscopy History of esophagogastroduodenoscopy (EGD) (~2015) History of hysterectomy (~1998) Social History household members: none Smoking Status: Former smoker quit date: 06/15/84 Tobacco: How many years used: 15 Electronic Cigarette Use: not used how long ago did patient quit smokin years second hand exposure: No alcohol intake: current alcohol intake frequency: holidays/special occasions only Alcohol type: wine substance use type: does not use what type of physical activity do you participate in: none ROS ROS ED Constitutional Constitutional ED: Reports fever(s) and subjective; Denies chills ENT ENT ED: Denies sore throat Cardiovascular Cardiovascular: Denies chest pain Respiratory/Chest Respiratory/Chest: Denies cough or dyspnea Gastrointestinal Gastrointestinal: Reports abdominal pain; Denies diarrhea, nausea or vomiting Genitourinary Genitourinary ED: Reports dysuria and urinary frequency; Denies hematuria Musculoskeletal Musculoskeletal: Reports back pain; Denies myalgias Integumentary Denies rash Neurologic Neurologic: Denies headache(s) Hematologic/Lymphatic Hematologic/Lymphatic: Denies easy bleeding or easy bruising EXAM Physical Exam Const Vital Signs: 04/03/22 04:19 Temperature 98.1 F Temperature Source Temporal Pulse Rate 94 Respiratory Rate 18 Blood Pressure 174/80 H Blood Pressure Mean 111 Pulse Ox 98 Oxygen Delivery Method Room Air Positive well nourished, well developed and obese General Appearance ED: well developed Nutritional Appearance: obese Eyes PERRL and EOMs intact bilaterally Neck supple Resp normal respiratory effort and clear to auscultation bilaterally Cardio regular rate and regular rhythm Rate: other Other Details: Radial pulses are plus 2 out of 4 bilaterally are equal and symmetric GI non-tender and non-distended GI Narrative: Abdomen is obese soft and nondistended with normoactive bowel sounds. There is mild pain on palpation in the suprapubic region without voluntary guarding or rigidity. No pulsatile mass Auscultation: normoactive bowel sounds Palpation: soft Back/Spine Back/Spine Narrative: Positive left CVA pain Extremity normal to inspection Neuro oriented x3 and CN's II-XII intact bilaterally Sensorium / Orientation: alert Psych Psych Narrative: Patient has a depressed/flat affect Skin no rashes or lesions noted MDM MDM MDM Narrative Medical decision making narrative: Patient presented to the ER afebrile. She reported that she had been treated with 5 days of Bactrim and had improvement for just a few days but then return of symptoms and now is developing some left flank pain. With this there is concern for pyelonephritis. Basic labs were obtained and shows no white count or left shift. Kidney function is just slightly elevated and is not consistent with acute kidney injury. Her urine does show signs of infection with +1 bacteria as well as 500 leukocyte esterase and she does have symptoms consistent with urinary tract infection. Therefore she will be treated with 1 g of Rocephin and her urine will be sent for culture. However at this time she does not have SONJA she does not have septic changes and therefore do not feel there is need for inpatient treatment. Patient will be started on 10-day course of Keflex and is otherwise safe for discharge and will be advised to follow-up with urology because of her recurrent urinary tract infections Lab Data Attestation: I reviewed the patient's lab results. Labs: Laboratory Results - last 24 hr 04/03/22 04/03/22 04/03/22 04:50 05:08 05:08 WBC 10.6 RBC 4.49 Hgb 13.5 Hct 40.9 MCV 91.1 MCH 30.1 MCHC 33.0 RDW Std Deviation 41.8 RDW Coeff of [place]in[place]arlo 12.6 Plt Count 267 MPV 9.4 Immature Gran % (Auto) 0.300 Neut % (Auto) 74.7 H Lymph % (Auto) 14.6 L [place] % (Auto) 9.2 Eos % (Auto) 0.8 Baso % (Auto) 0.4 Absolute Neuts (auto) 7.9 H Absolute Lymphs (auto) 1.55 Nucleated RBC % 0 Sodium 138 Potassium 3.2 L Chloride 99 Carbon Dioxide 31.0 Anion Gap 8 BUN 18 Creatinine 1.12 H Estim Creat Clear Calc 48.05 Est GFR (MDRD) Af Amer 62 Est GFR (MDRD) Non-Af 52 L BUN/Creatinine Ratio 16.1 Glucose 134 H Calcium 9.1 Urine Color Yellow Urine Clarity Clear Urine pH 6.0 Ur Specific [place] 1.030 Urine Protein 30 H Urine Glucose (UA) Normal Urine Ketones 5 H Urine Occult Blood Negative Urine Nitrite Negative Urine Bilirubin 3 H Urine Urobilinogen Normal Ur Leukocyte Esterase 500 H Urine RBC 0 SEEN Urine WBC 5-10 SEEN Ur Squamous Epith Cells 0-5 SEEN Urine Bacteria 1+ Urine Mucus 0 SEEN Discharge Plan Triage Chief Complaint: Complaint ED Provider: Dwain Madrid Dx/Rx/DC Orders Clinical Impression: Acute pyelonephritis, UTI (urinary tract infection) Instructions: ED Pyelonephritis, Female (Adult) Prescriptions: New cephalexin 500 mg capsule 500 mg PO TID 10 Days Qty: 30 0RF phenazopyridine [Pyridium] 200 mg tablet 200 mg PO TID 2 Days Qty: 6 0RF No Action budesonide-formoterol [Symbicort] 160-4.5 mcg/actuation HFA aerosol inhaler 2 puff inhalation BID Qty: 3 3RF Rx Instructions: administer with spacer, rinse mouth after each use fluticasone propionate 50 mcg/actuation spray,suspension 2 spray intranasal DAILY Qty: 3 3RF triamterene-hydrochlorothiazid 37.5-25 mg tablet 1 tab PO QAM Qty: 90 2RF Breztri Aerosphere 160-9-4.8 mcg/actuation HFA aerosol inhaler 0RF (DME) blood pressure test kit-large Kit See Rx Instructions .ROUTE .MEDSUPPLY Qty: 1 0RF Rx Instructions: Check BP twice a day montelukast [Singulair] 10 mg tablet 10 mg PO QHS cetirizine 10 mg capsule 10 mg PO DAILY omeprazole 20 mg capsule,delayed release(DR/EC) 20 mg PO DAILY calcium carbonate 500 mg calcium (1,250 mg) tablet,chewable 1,000 mg PO DAILY cholecalciferol (vitamin D3) 25 mcg (1,000 unit) tablet,chewable 2,000 unit PO DAILY ferrous gluconate 324 mg (37.5 mg iron) Tablet 324 mg PO DAILY mecobalamin (vitamin B12) 5,000 mcg Tablet,Disintegrating 5,000 mcg PO DAILY rosuvastatin [Crestor] 40 mg tablet 40 mg PO DAILY Qty: 90 3RF albuterol sulfate 90 mcg/actuation HFA aerosol inhaler 2 - 3 puff inhalation Q6H PRN (Reason: shortness of breath or wheezing) Qty: 8.5 3RF fluoxetine 40 mg capsule 40 mg PO DAILY Qty: 90 3RF trazodone 50 mg tablet 150 mg PO QHS PRN (Reason: Sleep) 90 Days Qty: 240 2RF potassium chloride 20 mEq tablet extended release 20 meq PO DAILY Qty: 30 1RF levothyroxine 150 mcg tablet 150 mcg PO DAILY Qty: 90 1RF pramipexole 0.25 mg tablet 0.25 - 0.75 mg PO QHS Qty: 90 0RF Primary Care Provider: Joseph Smyth Referrals: Joseph Smyth MD [Primary Care Provider] - Anita Perales MD [Med Staff - Active Staff] - Activity Restrictions/Additional Instructions: Please take the medication as directed to help resolve your infection. Because you have been having recurrent symptoms over the past month please consider following up with urology for further testing if needed. If you have any further concerns please return to the ER for repeat evaluation Disposition Disposition: Home, Self Care
[2022-04-03 05:03] LABS: Color, Urine Yellow (Yellow); Glucose, Dipstick Normal (Normal); Ketone-Dipstick 5 mg/dl (Negative); Leukocyte Esterase-Dipstick 500 /ul (Negative); Nitrite-Dipstick Negative (Negative); Occult Blood-Urine Negative /ul (Negative); Protein-Dipstick 30 mg/dl (Negative); Urine Clarity Clear (Clear); Urine Urobilinogen Normal (Normal)
[2022-04-03 05:08] LABS: Urine Bilirubin Dipstick 3 mg/dL (Negative)
[2022-04-03 05:10] LABS: Bacteria 1+ /hpf (None Seen); Squamous Epithelial Cells - UA 0-5 SEEN /hpf (5-10); White Blood Cells 5-10 SEEN /hpf (0-5)
[2022-04-03 05:15] LABS: Absolute Lymphocyte Count 1.55 X10^3/uL (0.83-4.51); Absolute Neutrophil Count 7.9 X10^3/uL (2.0-7.7); Basophil# 0.04 X10^3/uL; Basophil% 0.4 % (0-1); Eosinophil# 0.09 X10^3/uL; Eosinophils% 0.8 % (0-5); Hematocrit 40.9 % (37-47); Hemoglobin 13.5 g/dL (12.0-15.0); Lymphocyte # 1.55 X10^3/ul (0.83-4.51); Lymphocyte % 14.6 % (19-41); Mean Corpuscular Hgb 30.1 pg (27.0-32.0); Mean Corpuscular Volume 91.1 fL (81-99); Mean Platelet Vol. 9.4 fl (6.2-12.0); Monocyte# 0.98 X10^3/uL; Monocyte% 9.2 % (0-10); NRBC Flagged by Analyzer 0 % (0-5); Neutrophil # 7.94 X10^3/uL (2.7-7.7); Neutrophil % 74.7 % (47-70); Platelet Count 267 K/mm3 (150-450); RBC Distribution Width CV 12.6 % (11.6-14.6); RBC Distribution Width SD 41.8 fl (35.1-43.9); Red Blood Count 4.49 M/mm3 (4.2-5.4); White Blood Count 10.6 K/mm3 (4.4-11.0)
[2022-04-03 05:33] LABS: Anion Gap 8 (5-15); BUN 18 mg/dL (7-18); BUN/Creat Ratio 16.1 RATIO (10-20); Calcium,Total 9.1 mg/dL (8.5-10.1); Chloride 99 mmol/L (98-107); Creatinine, Serum 1.12 mg/dL (0.55-1.02); EST Glomerular Filtration Rate 52 mL/min (>60); Est Glom Filt Rate - Afr Amer 62 mL/min (>60); Estimated Creatinine Clearance 48.05 ml/min; Glucose 134 mg/dL (74-106); Potassium 3.2 mmol/L (3.5-5.1); Sodium Level 138 mmol/L (136-145)
[2022-04-03] MEDS: Ceftriaxone 1 GM/50 ML BAG IV (05:34)
[2022-04-03] MEDS: Phenazopyridine 95 MG Tablet 190 MG PO (06:11)
== END 2022-04-03 06:13 | disposition home or self-care (01) ==
PROVIDERS: Emergency Provider Emergency Medicine; PCP Internal Medicine; Visit Provider Emergency Medicine
DX: N39.0 Urinary tract infection, site not specified (principal); I10 Essential (primary) hypertension; Z87.891 Personal history of nicotine dependence; N10 Acute pyelonephritis; E78.5 Hyperlipidemia, unspecified; E03.9 Hypothyroidism, unspecified
CPT/HCPCS: 80048; 81001; 85025; 87086; 87088; 96365; 99283; A4216

== ENCOUNTER → 2022-04-07 | Outpatient (CLI) | payer MEDICARE, SELFPAY ==
[2022-04-07 08:48] LABS: Bacteria 0 SEEN /hpf (None Seen); Mucous, Urine 0 SEEN /hpf (<or=2+); Red Blood Cells-Urine 0 SEEN /hpf (0-5)
[2022-04-07 12:25] LABS: Absolute Lymphocyte Count 2.91 X10^3/uL (0.83-4.51); Absolute Neutrophil Count 2.9 X10^3/uL (2.0-7.7); Basophil# 0.02 X10^3/uL; Basophil% 0.3 % (0-1); Eosinophil# 0.15 X10^3/uL; Eosinophils% 2.3 % (0-5); Hematocrit 40.7 % (37-47); Hemoglobin 13.6 g/dL (12.0-15.0); Lymphocyte # 2.91 X10^3/ul (0.83-4.51); Lymphocyte % 45.4 % (19-41); Mean Corp Hgb Conc 33.4 g/dL (32-36); Mean Corpuscular Hgb 30.5 pg (27.0-32.0); Mean Corpuscular Volume 91.3 fL (81-99); Mean Platelet Vol. 9.8 fl (6.2-12.0); Monocyte# 0.44 X10^3/uL; Monocyte% 6.9 % (0-10); NRBC Flagged by Analyzer 0 % (0-5); Neutrophil # 2.87 X10^3/uL (2.7-7.7); Neutrophil % 44.8 % (47-70); Platelet Count 299 K/mm3 (150-450); RBC Distribution Width CV 12.5 % (11.6-14.6); RBC Distribution Width SD 41.7 fl (35.1-43.9); Red Blood Count 4.46 M/mm3 (4.2-5.4); White Blood Count 6.4 K/mm3 (4.4-11.0)
[2022-04-07 12:35] LABS: Color, Urine Yellow (Yellow); Glucose, Dipstick Normal (Normal); Ketone-Dipstick Negative (Negative); Leukocyte Esterase-Dipstick 500 /ul (Negative); Nitrite-Dipstick Negative (Negative); Occult Blood-Urine Negative /ul (Negative); Protein-Dipstick Negative (Negative); Urine Bilirubin Dipstick Negative (Negative); Urine Clarity Clear (Clear); Urine Urobilinogen Normal (Normal); Urine pH 6.5 (5.0 - 8.0)
[2022-04-07 12:52] LABS: Squamous Epithelial Cells - UA 0-5 SEEN /hpf (5-10); White Blood Cells 0-5 SEEN /hpf (0-5)
[2022-04-07 13:08] LABS: BUN 13 mg/dL (7-18); Creatinine, Serum 0.98 mg/dL (0.55-1.02); EST Glomerular Filtration Rate 60 mL/min (>60); Glucose 109 mg/dL (74-106)
[2022-04-07 13:09] LABS: ALB/GLOB Ratio 0.8 RATIO (0.9-2.4); AST(SGOT) 32 U/L (15-37); Alanine Aminotransfer ALT/SGPT 39 U/L (13-56); Albumin, Serum 3.2 g/dL (3.2-5.0); Alkaline Phosphatase 100 U/L (45-117); Anion Gap 7 (5-15); BUN/Creat Ratio 13.2 RATIO (10-20); Calcium,Total 8.9 mg/dL (8.5-10.1); Chloride 101 mmol/L (98-107); Est Glom Filt Rate - Afr Amer 72 mL/min (>60); Globulin 4.2 g/dL (2.2-4.2); Potassium 2.9 mmol/L (3.5-5.1); Protein, Total 7.4 g/dL (6.4-8.2); Sodium Level 137 mmol/L (136-145)
== END | disposition home or self-care (01) ==
LOC: BIMLAB 08:37
PROVIDERS: PCP Internal Medicine; Referring Provider Physician Assistant; Visit Provider Physician Assistant
DX: N10 Acute pyelonephritis (principal); N39.0 Urinary tract infection, site not specified; R05.9 Cough, unspecified
CPT/HCPCS: 36415; 80053; 81001; 85025; 87086; 87635; U0003; U0005

== ENCOUNTER 2022-05-19 06:15 | Day surgery (SDC) | payer MEDICARE, SELFPAY ==
[2022-05-19] MEDS: Lactated Ringers 1,000 ML 15 ML IV (06:41)
[2022-05-19 06:42] VITALS: BP 148/70; PULSE 95; RESP 18; TEMP 36.4; O2SAT 95; BMI 45.2
--- NOTE | 2022-05-19 07:00 | RAD_ITS ---
PROCEDURE: Right T7-T9 radiofrequency ablation. DATE OF EXAMINATION: 05/19/2022. INDICATION: Female, 67 years old. Back pain. FLUOROSCOPY TIME (if supplied): (19.6 seconds) minutes/seconds. 10 images were submitted. RAD/Thoracic Spine 2 Views IMPRESSION: Intraoperative imaging provided for right T7-T9 radiofrequency ablation. Electronically Signed: Ad Conner MD at 15:08 EST ,
[2022-05-19] MEDS: MethylPREDNISolone Acetate 40 MG/ML Vial IM (08:20)
[2022-05-19] MEDS: Lidocaine 1% (5 ml sdv) 5 ML Vial (08:20)
--- NOTE | 2022-05-19 08:29 | OP.PCM_ITS ---
Report of Operation Date of Procedure: 05/19/22 Description of Surgical Findings:: PREOPERATIVE DIAGNOSES: 1. Thoracic spondylosis. 2. Thoracic degenerative disk disease. 3. Thoracic facet arthropathy. POSTOPERATIVE DIAGNOSES: 1. Thoracic spondylosis. 2. Thoracic degenerative disk disease. 3. Thoracic facet arthropathy. PROCEDURE PERFORMED:?Right?-sided thoracic radiofrequency ablation of the medial branch at T7, T8, T9. ANESTHESIA:? MAC. BLOOD LOSS:? Minimal. COMPLICATIONS:? None. DESCRIPTION OF PROCEDURE:? History and physical of today was reviewed.? Risks and benefits of the procedure were explained.? The patient understood and agreed to proceed.? Informed consent was obtained.? IV inserted per routine protocol.? The patient was taken to the operating room and placed in the prone position with a pillow positioned underneath the chest.? The mid back area was prepped and draped in a sterile fashion using iodine x3.? Under fluoroscopy guidance in an oblique view, the T7 through T10 vertebral bodies were visualized.? The skin and subcutaneous tissue was anesthetized with approximately 10 mL of 1% lidocaine using a 25-gauge regular needle.? Under direct visualization on fluoroscopy at approximately 25-degree angle, starting on the right 10, ending on the right?T7, passing through the T8 and T9, using a 20-gauge 10-cm with a 10-mm curved active-tip radiofrequency ablation needle, the needle was passed through the skin.? The tip of the needle was maneuvered and directed towards the epiphyseal junction of each corresponding vertebra.? Once the tip of the needle was at the vicinity of the medial branch and in contact with the bone, the needle was pulled approximately 2 mm off the bone.? The stylette of each needle was then removed.? After negative aspiration of blood or CSF and confirmation on AP, oblique as well as lateral view, the radiofrequency ablation probe was then inserted at each level.? Impedance was then recorded at T7 to be 296 ohm, at T8 to be 321 ohm, at T9 to be 257 ohm, and at T10 to be 358 ohm.? Motor-evoked potential was then initiated to 1.5 volts without any motor response at each cor responding level.? The probe was then removed intact and a total of 8 cc of preservative-free 2% lidocaine was injected in divided doses between those four levels after negative aspiration of blood or CSF.? The radiofrequency ablation probe was then reinserted.? After confirmation on AP, oblique as well as lateral view, radiofrequency ablation was then initiated to 80 degree Celsius for 90 second at each level.? Once concluded, the probe was then removed intact.? A total of 6 cc??of preservative-free 0.25% Marcaine with 40 mg of Depo-Medrol was injected in divided doses between those four levels.? The needles were then removed intact.? The patient experienced no sign or symptoms of intrathecal or intravascular injection.? The patient experienced no paresthesia. Assessment and plan: This is a 67-year-old female with thoracic spondylosis, thoracic degenerative disc disease, thoracic facet arthropathy, status post right-sided thoracic radiofrequency ablation of the medial branch at T7-T9, patient will continue her current medications, patient will follow in approximately 2 weeks for reevaluation.
[2022-05-19 08:35] VITALS: BP 125/69; BP 148/70; PULSE 82; RESP 16; TEMP 36.5; O2SAT 96
[2022-05-19 08:40] VITALS: BP 122/68; BP 148/70; PULSE 78; RESP 16; O2SAT 94
[2022-05-19 08:45] VITALS: BP 121/76; BP 148/70; PULSE 77; RESP 16; O2SAT 93
[2022-05-19 08:52] VITALS: BP 120/88; BP 148/70; PULSE 75; RESP 16; TEMP 36.9; O2SAT 97
[2022-05-19 09:07] VITALS: BP 148/70
== END 2022-05-19 09:13 | disposition home or self-care (01) ==
LOC: SDC 06:17 → AC 06:18
PROVIDERS: PCP Internal Medicine; Referring Provider Anesthesiology Pain Medicine; Visit Provider Anesthesiology Pain Medicine
PROC: (CPT 64633; principal; 2022-05-19 07:55)
DX: M47.814 Spondylosis without myelopathy or radiculopathy, thoracic region (principal); E66.01 Morbid (severe) obesity due to excess calories; Z68.41 Body mass index [BMI] 40.0-44.9, adult; M51.34 Other intervertebral disc degeneration, thoracic region; E78.5 Hyperlipidemia, unspecified; E03.9 Hypothyroidism, unspecified; G47.00 Insomnia, unspecified; G47.33 Obstructive sleep apnea (adult) (pediatric); I87.2 Venous insufficiency (chronic) (peripheral); Z99.89 Dependence on other enabling machines and devices
CPT/HCPCS: 64633; 64634; 72070; 76000; J7120

== ENCOUNTER 2022-08-05 07:30 | Outpatient (RCR) | payer MEDICARE, SELFPAY ==
--- NOTE | 2022-07-22 08:00 | HP.PTEVAL_ITS ---
Patient's Visit Information CULLEN CUEVA is a 67 year old F referred to Physical Therapy by HILARY Barrett with a diagnosis of NECK PAIN,THORACIC SPONDYLOSIS ,DDD THORACIC. Date of Evaluation: 07/22/22 Physical Therapist: Dave Ruiz, PT, Cert MDT, OCS - Visit Plan Frequency: 2x /Week Duration: 4 Weeks Plan: PT INTERVETIONS MANUAL THERAPY -CERVICAL TRACTION ,CERCICAL /THORACIC ROM,POSTURAL EX'S STRENGTHNEING AND MODALITIES ICTX OKAY IF FEELS COMFORTABLE - Subjective This 67 y/o female presents to physical therapy with neck and upper back pain. This patient has thoracic pain for ~ years and cervical spine 3 months. Patient has seen pain management for thoracic epidural injection and had aplasia thoracic . Patient has no injection and prescribed Robaxin and Celebrex. Location left cervical and mid thoracic spine. Aggravating factors AM ,lifting and housework ,rotation. Alleviating factors medication. Patient denies paresthesia/tingling . Dizziness/nausea/tinnitus. c/o MACEDO base of neck. Symptoms affects sleeping. No abnormal night pain. Pain affects QOL and function. 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 Patient has x-rays neck and back. SOCAIL: . VOCATION: retired - Pain Bilateral Neck Pain Intensity (Out of 10): 3 Pain Intensity Range: 10 Comment: left >right Bilateral Back Pain Intensity (Out of 10): 4 Pain Intensity Range: 10 - Objective POSTURE: mild forward posture. NUERO: denies paresthesia/tingling ,DTR's intact C5-6-7. PALAPTION: tender paraspinals cervical ,occiput base. CERVICAL ROM: flexion min loss ,extension mod/severe ,lateral flexion mod loss ,rotation mod loss. THORACIC ROM: flexion mod loss ,extension severe loss ,rotation mod loss. BUE: WFL. MMT: grossly 4/5 - Special Tests C/S Radiculapathy - Left Upper limb tension test: Negative C/S Radiculapathy - Right Upper limb tension test: Negative C/S Radiculapathy - Left Spurlings: Positive C/S Radiculapathy - Right Spurlings: Positive C/S Radiculapathy - Left Cervical distraction: Negative C/S Radiculapathy - Right Cervical distraction: Negative C/S Radiculapathy - Left Relief test: Negative C/S Radiculapathy - Right Relief test: Negative C/S Radiculapathy - Valsalva: Negative Sharp Rossi: Negative Vertebral Artery Test: Negative Alar Ligament Test: Negative Thoracic Sitting: Flexion - Mechanical Response: No effect Thoracic Sitting: Flexion - Symptoms During Testing: No effect Thoracic Sitting: Flexion - Symptoms After Testing: No effect Thoracic Sitting: Extension - Mechanical Response: No effect Thoracic Sitting: Extension - Symptoms During Testing: Increases Thoracic Sitting: Extension - Symptoms After Testing: No worse Thoracic Sitting: Right rotation - Mechanical Response: No effect Thoracic Sitting: Right Rotation - Symptoms During Testing: No effect Thoracic Sitting: Right Rotation - Symptoms After Testing: No worse Thoracic Sitting: Left rotation - Mechanical Response: No effect Thoracic Sitting: Left Rotation - Symptoms During Testing: Increases Thoracic Sitting: Left Rotation - Symptoms After Testing: Worse L/S Slump test left side: Negative L/S Slump test right side: Negative - Balance/Special Test Scores Oswestry Neck Score: 22 - Goals Goal 1:: Patient to be I with neck and thoracic Goal Time Frame: 4-6 Weeks Goal 2:: Patient improve posture 90% of joshua for ADLS Goal Time Frame: 4-6 Weeks Goal 3:: Patient to demonstrate 50% improvement with improved function and less pain. Goal Time Frame: 4-6 Weeks Goal 4:: Patient improve cervical and thoracic ROM for function of recovery to drive and ADLS Goal Time Frame: 4-6 Weeks Goal 5:: Patient improve cervical oswestry score by 5 points to improve function and QOL Goal Time Frame: 4-6 Weeks - Rehabilitation Potential Physical Therapy Diagnosis: This patient has cervical and thoracic pain with pain with positioning and motion testing ,+ response with manual traction with pain affecting ADLS and housework tasks thus bebefit from skilled PT Rehabilitation Potential: Good - Anticipated Interventions Patient/Client Instruction: Educate patient on: Condition, Plan of Care For the Purpose of:: To decrease pain, To increase ROM, To improve muscle performance and motor function, To improve ability to perform ADL's, To increase tolerance to activity/condition/position, To improve ability of physical actions for home/community/work/leisure, To improve health of tissue, To decrease soft tissue restriction, To increase flexibility/ROM Therapeutic Exercise to Include: Strength training, Body mechanics, Postural training, Flexibilty training, Active ROM, Scapular Strength/Stabilization For the Purpose of:: To decrease pain, To increase ROM, To improve muscle performance and motor function, To increase tolerance to activity/condition/position, To improve ability of physical actions for home/community/work/leisure, To improve health of tissue, To decrease soft tissue restriction, To increase flexibility/ROM TENS: Yes IF ES: Yes Thermo therapy (hot pack): Yes Ultrasound (thermal/non thermal): Yes Paraffin bath: Yes Intermittent cervical traction: Yes For the Purpose of:: To decrease pain, To increase ROM, To improve nutrient delivery to tissue, To increase oxygenation perfusion, To improve health of tissue, To decrease soft tissue restriction, To increase flexibility/ROM Thank you for the opportunity to evaluate your patient. For Medicare and Medicare HMO plans, please review the plan of care and approve it. It will need to be FAXED BACK to us at [phone] for Medicare purposes. For Medicare only, by signing this I certify the plan of care. Please let me know if there are questions or concerns regarding this plan of care. Physician Signature: Date:
--- NOTE | 2022-10-30 09:59 | HP.PT.NRP ---
CULLEN CUEVA was seen in my office for initial evaluation on 07/22/22. The following Plan of Care was established for this patient: Initial Frequency: 2x /Week Initial Duration: 4 Weeks Patient/Client Instruction: Educate patient on: Condition, Plan of Care For the Purpose of:: To decrease pain, To increase ROM, To improve muscle performance and motor function, To improve ability to perform ADL's, To increase tolerance to activity/condition/position, To improve ability of physical actions for home/community/work/leisure, To improve health of tissue, To decrease soft tissue restriction, To increase flexibility/ROM Therapeutic Exercise to Include: Strength training, Body mechanics, Postural training, Flexibilty training, Active ROM, Scapular Strength/Stabilization For the Purpose of:: To decrease pain, To increase ROM, To improve muscle performance and motor function, To increase tolerance to activity/condition/position, To improve ability of physical actions for home/community/work/leisure, To improve health of tissue, To decrease soft tissue restriction, To increase flexibility/ROM TENS: Yes IF ES: Yes Thermo therapy (hot pack): Yes Ultrasound (thermal/non thermal): Yes Paraffin bath: Yes Intermittent cervical traction: Yes For the Purpose of:: To decrease pain, To increase ROM, To improve nutrient delivery to tissue, To increase oxygenation perfusion, To improve health of tissue, To decrease soft tissue restriction, To increase flexibility/ROM This patient was last seen in our office . Pertinent comments regarding their Physical therapy will appear below: Patient seen for PT for cervical pain for HEP doing well .thus d/c At this point I will be discontinuing this patient from physical therapy. I would be happy to see this patient again in the future if found appropriate by the physician. Thank you! aDve Ruiz, PT, Cert MDT, OCS Balance/Gait/Functional tests - Balance/Special Test Scores Oswestry Neck Score: 5
== END 2022-08-05 19:00 | disposition home or self-care (01) ==
LOC: PT 07:30
PROVIDERS: PCP Internal Medicine; Referring Provider Nurse Practitioner Family; Visit Provider Nurse Practitioner Family
DX: M54.2 Cervicalgia (principal); M47.814 Spondylosis without myelopathy or radiculopathy, thoracic region; M41.34 Thoracogenic scoliosis, thoracic region; M51.34 Other intervertebral disc degeneration, thoracic region
CPT/HCPCS: 97035; 97110; 97162

== ENCOUNTER → 2022-08-29 | Outpatient (CLI) | payer MEDICARE, SELFPAY ==
[2022-08-29 12:13] LABS: Absolute Lymphocyte Count 1.91 X10^3/uL (0.83-4.51); Absolute Neutrophil Count 5.1 X10^3/uL (2.0-7.7); Basophil# 0.06 X10^3/uL; Basophil% 0.8 % (0-1); Eosinophils% 2.5 % (0-5); Hematocrit 41.2 % (37-47); Hemoglobin 13.5 g/dL (12.0-15.0); Lymphocyte # 1.91 X10^3/ul (0.83-4.51); Lymphocyte % 24.3 % (19-41); Mean Corp Hgb Conc 32.8 g/dL (32-36); Mean Corpuscular Hgb 29.7 pg (27.0-32.0); Mean Corpuscular Volume 90.5 fL (81-99); Mean Platelet Vol. 9.9 fl (6.2-12.0); Monocyte# 0.58 X10^3/uL; Monocyte% 7.4 % (0-10); NRBC Flagged by Analyzer 0 % (0-5); Neutrophil % 64.7 % (47-70); Platelet Count 294 K/mm3 (150-450); RBC Distribution Width CV 13.2 % (11.6-14.6); RBC Distribution Width SD 43.7 fl (35.1-43.9); Red Blood Count 4.55 M/mm3 (4.2-5.4); White Blood Count 7.9 K/mm3 (4.4-11.0)
[2022-08-29 13:13] LABS: ALB/GLOB Ratio 0.9 RATIO (0.9-2.4); AST(SGOT) 23 U/L (15-37); Alanine Aminotransfer ALT/SGPT 25 U/L (13-56); Albumin, Serum 3.6 g/dL (3.2-5.0); Alkaline Phosphatase 103 U/L (45-117); Anion Gap 6 (5-15); BUN 14 mg/dL (7-18); BUN/Creat Ratio 14.6 RATIO (10-20); Calcium,Total 9.1 mg/dL (8.5-10.1); Chloride 103 mmol/L (98-107); Cholesterol 157 mg/dL (200); Creatinine, Serum 0.96 mg/dL (0.55-1.02); EST Glomerular Filtration Rate 62 mL/min (>60); Est Glom Filt Rate - Afr Amer 75 mL/min (>60); Globulin 3.8 g/dL (2.2-4.2); Glucose 158 mg/dL (74-106); High Density Lipoprotein 57 mg/dL; Potassium 3.1 mmol/L (3.5-5.1); Protein, Total 7.4 g/dL (6.4-8.2); Sodium Level 138 mmol/L (136-145); Thyroid Stim Hormone (TSH) 4.97 uIU/mL (0.358-3.74); Triglycerides 94 mg/dL; Very Low Density Lipoprotein 19 mg/dL (5-40)
== END | disposition home or self-care (01) ==
LOC: BIMLAB 11:11
PROVIDERS: PCP Internal Medicine; Visit Provider Internal Medicine
DX: K22.70 Barrett's esophagus without dysplasia (principal); I10 Essential (primary) hypertension; E78.5 Hyperlipidemia, unspecified
CPT/HCPCS: 36415; 80053; 80061; 84443; 85025

== ENCOUNTER → 2022-09-25 | Outpatient (CLI) | payer MEDICARE, SELFPAY ==
--- NOTE | 2022-09-25 07:26 | BI_ITS ---
MAMMOGRAPHY - BILATERAL SCREENING 3-D TOMOSYNTHESIS REASON FOR EXAM: Female, 67 years old. Routine screening PERTINENT HISTORY: No significant family history. TECHNIQUE: 2-D mammograms and 3-D Tomosynthesis of the breast (s) were performed. CAD was performed. COMPARISON: 09/24/2021 FINDINGS: The breast composition is composed of scattered fibroglandular density. Scattered benign calcifications are seen. No dense spiculated masses or suspicious microcalcifications are identified. No architectural distortion is identified. There is no skin thickening or retraction. There has been no significant change since the prior study. BI/SCRN MAMM (CAD)W/HANANE BILAT IMPRESSION: No mammographic signs of malignancy. Routine yearly mammograms recommended. ASSESSMENT CATEGORY: BIRADS Category 1: Negative. A letter regarding these results will be sent to the patient by the facility within 30 days. FOLLOW UP RECOMMENDATION: Yearly follow up mammogram recommended. (A) Approximately 10% of breast cancers are not detected by mammography. A normal mammogram should not delay biopsy of a clinically suspicious abnormality. Electronically Signed: Jae Henderson MD at 8:20 EDT ,
== END | disposition home or self-care (01) ==
LOC: OPBI 07:25
PROVIDERS: PCP Internal Medicine; Referring Provider Internal Medicine; Visit Provider Internal Medicine
DX: Z12.31 Encounter for screening mammogram for malignant neoplasm of breast (principal)
CPT/HCPCS: 77063; 77067

== ENCOUNTER → 2022-10-01 | Outpatient (CLI) | payer MEDICARE, SELFPAY ==
[2022-10-01 13:48] LABS: Mucous, Urine 0 SEEN /hpf (<or=2+); Red Blood Cells-Urine 0 SEEN /hpf (0-5); Squamous Epithelial Cells - UA 0 SEEN /hpf (5-10)
[2022-10-01 15:48] LABS: Color, Urine Yellow (Yellow); Glucose, Dipstick Normal (Normal); Ketone-Dipstick Negative (Negative); Leukocyte Esterase-Dipstick 100 /ul (Negative); Nitrite-Dipstick Negative (Negative); Occult Blood-Urine Negative /ul (Negative); Protein-Dipstick Negative (Negative); Specific Gravity, Urine 1.005 (1.002-1.030); Urine Bilirubin Dipstick Negative (Negative); Urine Clarity Clear (Clear); Urine Urobilinogen Normal (Normal)
[2022-10-01 15:55] LABS: Bacteria 1+ /hpf (None Seen); White Blood Cells 0-5 SEEN /hpf (0-5)
== END | disposition home or self-care (01) ==
LOC: LABSPEC 13:47
PROVIDERS: PCP Internal Medicine; Referring Provider Nurse Practitioner Family; Visit Provider Nurse Practitioner Family
DX: R10.816 Epigastric abdominal tenderness (principal); R30.0 Dysuria
CPT/HCPCS: 81001; 87077; 87086; 87088; 87186

== ENCOUNTER → 2022-10-03 | Outpatient (CLI) | payer MEDICARE, SELFPAY ==
[2022-10-03 12:24] LABS: Anion Gap 4 (5-15); BUN 17 mg/dL (7-18); BUN/Creat Ratio 15.7 RATIO (10-20); Calcium,Total 9.4 mg/dL (8.5-10.1); Chloride 102 mmol/L (98-107); Creatinine, Serum 1.08 mg/dL (0.55-1.02); EST Glomerular Filtration Rate 54 mL/min (>60); Est Glom Filt Rate - Afr Amer 65 mL/min (>60); Glucose 135 mg/dL (74-106); Potassium 3.5 mmol/L (3.5-5.1); Sodium Level 135 mmol/L (136-145); Thyroid Stim Hormone (TSH) 5.38 uIU/mL (0.358-3.74)
== END | disposition home or self-care (01) ==
LOC: BIMLAB 08:37
PROVIDERS: PCP Internal Medicine; Referring Provider Internal Medicine; Visit Provider Internal Medicine
DX: I10 Essential (primary) hypertension (principal); R73.9 Hyperglycemia, unspecified; E03.9 Hypothyroidism, unspecified
CPT/HCPCS: 36415; 80048; 83036; 84443

== ENCOUNTER → 2022-11-26 | Outpatient (CLI) | payer MEDICARE, SELFPAY | END | disposition home or self-care (01) | LOC: LAB 06:05 | PROVIDERS: PCP Internal Medicine; Referring Provider Internal Medicine; Visit Provider Internal Medicine | DX: E03.9 Hypothyroidism, unspecified (principal) | CPT/HCPCS: 36415; 84443 ==

== ENCOUNTER → 2022-11-28 | Outpatient (CLI) | payer MEDICARE, SELFPAY ==
[2022-11-28 16:21] LABS: Erythrocyte Sedimentation Rate 22 mm/hr (0-30)
[2022-11-28 16:28] LABS: CRP 5.44 mg/L (0.0-3.0); LDH 197 U/L (84-246)
[2022-11-28 16:40] LABS: Thyroid Stim Hormone (TSH) 2.59 uIU/mL (0.358-3.74)
[2022-12-01 16:08] LABS: Endomysial Antibody IgA Negative (Negative); Immunoglobulin A 209 mg/dL (87-352); t-Transglutaminase IgA <2 U/mL (0-3)
[2022-12-04 04:07] LABS: Anti-Centromere B Ab <0.2 AI (0.0-0.9); Anti-Chromatin <0.2 AI (0.0-0.9); Anti-Jo <0.2 AI (0.0-0.9); Anti-Scleroderma-70 AB <0.2 AI (0.0-0.9); Anti-dsDNA Ab 1 IU/mL (0-9); Clam <0.10 kU/L (Class 0); Codfish <0.10 kU/L (Class 0); Corn <0.10 kU/L (Class 0); Egg, White <0.10 kU/L (Class 0); Milk (Cow) <0.10 kU/L (Class 0); Peanut <0.10 kU/L (Class 0); RNP Ab <0.2 AI (0.0-0.9); SCALLOP <0.10 kU/L (Class 0); SESAME SEED <0.10 kU/L (Class 0); SJOGREN'S Anti-SS-A test < 0.2 AI (0.0-0.9); SJOGREN'S Anti-SS-B test < 0.2 AI (0.0-0.9); Shrimp 1.64 kU/L (Class III); Smith Ab <0.2 AI (0.0-0.9); Soybean <0.10 kU/L (Class 0); Walnut, (Food) <0.10 kU/L (Class 0); Wheat <0.10 kU/L (Class 0)
[2022-12-04 12:09] LABS: Albumin 3.7 g/dL (2.9-4.4); Alpha-1-Globulins 0.2 g/dL (0.0-0.4); Cytoplasmic Ab (C-ANCA) <1:20 titer (Neg:<1:20); Gamma Globulin 1.4 g/dL (0.4-1.8); Gastrin, Serum 135 pg/mL (0-115); Immunoglobulin A 205 mg/dL (87-352); Immunoglobulin E 225 IU/mL (6-495); Immunoglobulin G 1305 mg/dL (586-1602); Immunoglobulin M 129 mg/dL (26-217); PROEL- TOTAL PROTEIN 7.4 g/dL (6.0-8.5); Perinuclear Ab (P-ANCA) <1:20 titer (Neg:<1:20)
== END | disposition home or self-care (01) ==
PROVIDERS: PCP Internal Medicine; Referring Provider Internal Medicine Gastroenterology; Visit Provider Internal Medicine Gastroenterology
DX: K59.00 Constipation, unspecified (principal); E03.9 Hypothyroidism, unspecified
CPT/HCPCS: 82784; 82785; 82941; 83516; 83615; 84165; 84443; 85652; 86003; 86140; 86225; 86235; 86255; 86256; 86334

== ENCOUNTER → 2022-12-04 | Outpatient (CLI) | payer MEDICARE, SELFPAY ==
[2022-12-11 04:07] LABS: Calprotectin, Stool 68 ug/g (0-120)
== END | disposition home or self-care (01) ==
LOC: LABSPEC 11:41
PROVIDERS: PCP Internal Medicine; Referring Provider Internal Medicine Gastroenterology; Visit Provider Internal Medicine Gastroenterology
DX: K59.00 Constipation, unspecified (principal); K58.9 Irritable bowel syndrome, unspecified
CPT/HCPCS: 83630; 83993

== ENCOUNTER → 2022-12-22 | Outpatient (CLI) | payer MEDICARE, SELFPAY ==
[2022-12-22 18:06] LABS: Thyroid Stim Hormone (TSH) 0.36 uIU/mL (0.358-3.74)
== END | disposition home or self-care (01) ==
LOC: LAB 15:44
PROVIDERS: PCP Internal Medicine; Visit Provider Internal Medicine
DX: E03.9 Hypothyroidism, unspecified (principal)
CPT/HCPCS: 36415; 84443

== ENCOUNTER 2023-02-20 10:06 | Emergency (ER) | payer MEDICARE, SELFPAY ==
[2023-02-20 10:08] VITALS: BP 164/108; PULSE 84; RESP 14; TEMP 36.2; O2SAT 97; BMI 44.2
--- NOTE | 2023-02-20 10:25 | ED.RN ---
Patient has multiple complaints starting in September of this year including insomnia, headache, felling hot / cold and shaking occasionally. Patient sitting in bed, tremor free and answering questions appropriately. Respirations easy and unlabored. States has tried to get into physicians office for same day appointments and PCP couldn't get her in, did not make appointment.
--- NOTE | 2023-02-20 10:36 | EX.ED.DYSGE1 ---
HPI History of Present Illness Chief Complaint: General Illness Informant: patient Onset/Context/Timing Onset: Month(s) Context: Gradual Onset Timing: Intermittent Current Severity: Mild Maximum Severity: Mild Narrative Narrative: 67-year-old female history of hypothyroidism on thyroid medication. Since August have had trouble with her TSH increasing in spite increasing dosages of thyroid medication. She said now she is having headaches and trouble sleeping. Intermittent subjective fever and chills. Has had some mild weight loss. And has had a headache for about a month. No falls or head trauma no history of intracranial bleeds. No history of blood thinners. Nausea but no vomiting or diarrhea. No melena. Prior similar symptoms: Yes Recent Illness/Hospitalization: No PFSH PFSH Medical History Allergies Anxiety Arthritis Asthma exacerbation Back problem Barretts esophagus BiPAP (biphasic positive airway pressure) dependence Blood glucose elevated Cardiology follow-up encounter Chest congestion Chest pain Depression (emotion) Diverticulitis Dry skin dermatitis Dysuria Epigastric abdominal tenderness Essential hypertension Family history of coronary artery disease Former smoker Gastric reflux Health care maintenance History of diverticulitis History of echocardiogram History of edema History of gallstones History of stress test Hyperlipemia Hypothyroidism Injury of back Insomnia Leg cramps Marijuana use Morbid obesity with BMI of 40.0-44.9, adult Musculoskeletal back pain Post-menopausal Respiratory insufficiency Restless legs Routine health maintenance Scoliosis Shortness of breath Sinusitis Sleep apnea Venous insufficiency of both lower extremities Wears glasses Home Medications calcium carbonate 500 mg calcium (1,250 mg) chewable tablet 1,000 mg PO DAILY 06/22/20 [History Last Taken 12/05/20] cholecalciferol (vitamin D3) 25 mcg (1,000 unit) chewable tablet 2,000 unit PO DAILY 06/22/20 [History Last Taken 12/05/20] ferrous gluconate 324 mg (37.5 mg iron) tablet 324 mg PO DAILY SUPPLEMENT 12/05/20 [History Last Taken 12/05/20] mecobalamin (vitamin B12) 5,000 mcg disintegrating tablet 5,000 mcg PO DAILY SUPPLEMENT 12/05/20 [History Last Taken 12/05/20] blood pressure test kit-large #1 ea 10/08/21 [Rx Last Taken Unknown] montelukast 10 mg tablet (Singulair) 10 mg PO QHS ALLERGIES 01/21/22 [History Last Taken Unknown] fluticasone propionate 50 mcg/actuation nasal spray,suspension 2 spray intranasal DAILY #3 ea 06/24/22 [Rx Last Taken Unknown] rosuvastatin 40 mg tablet (Crestor) 40 mg PO DAILY #90 tabs 06/24/22 [Rx Last Taken Unknown] trazodone 50 mg tablet 150 mg (3 x 50 mg) PO QHS PRN Sleep 3 months #240 tabs 06/24/22 [Rx Last Taken Unknown] triamterene 37.5 mg-hydrochlorothiazide 25 mg tablet 1 tab PO QAM #90 tabs 06/24/22 [Rx Last Taken Unknown] budesonide-formoterol HFA 160 mcg-4.5 mcg/actuation aerosol inhaler (Symbicort) 2 puff inhalation BID #3 ea 06/26/22 [Rx Last Taken Unknown] omeprazole 40 mg capsule,delayed release 40 mg PO DAILY #90 caps 08/29/22 [Rx Last Taken Unknown] triamcinolone acetonide 0.1 % topical cream 1 applic topical BID PRN rash #453.6 grams 08/29/22 [Rx Last Taken Unknown] pramipexole 0.25 mg tablet 0.25 - 0.75 mg (1 - 3 x 0.25 mg) PO QHS RLS #90 tabs 09/15/22 [Rx Last Taken Unknown] potassium chloride 20 mEq tablet,extended release 20 meq PO DAILY #90 tabs 10/14/22 [Rx Last Taken Unknown] albuterol sulfate 90 mcg/actuation aerosol inhaler 2 - 3 puff inhalation Q6H PRN shortness of breath or wheezing #8.5 grams 10/22/22 [Rx Last Taken Unknown] ipratropium bromide 21 mcg (0.03 %) nasal spray 2 spray intranasal BID-TID PRN allergy symptoms #30 mL 11/06/22 [Rx Last Taken Unknown] tiotropium bromide 1.25 mcg/actuation mist for inhalation (Spiriva Respimat) 2 puff inhalation DAILY #4 grams 11/06/22 [Rx Last Taken Unknown] levothyroxine 175 mcg tablet 175 mcg PO DAILY #90 tabs 11/26/22 [Rx Last Taken Unknown] cetirizine 10 mg capsule 10 mg PO DAILY #30 caps 12/12/22 [Rx Last Taken Unknown] lubiprostone 8 mcg capsule (Amitiza) 8 mcg PO DAILY #30 caps 12/29/22 [Rx Last Taken Unknown] fluoxetine 40 mg capsule 40 mg PO DAILY #90 caps 01/30/23 [Rx Last Taken Unknown] Allergy/AdvReac Type Severity Reaction Status Date / Time pravastatin [From Pravachol] Allergy Mild itching Verified 11/26/22 11:27 ketoprofen [From Orudis] Allergy Nausea/Vom/ Verified 11/26/22 11:27 Diarrhea Family History Sister CAD (coronary artery disease) Thyroid disorder Brother CAD (coronary artery disease) Heart disease Myocardial infarction Alcoholism Angina at rest Mother Diabetes Myocardial infarction Father Hypertension Heart disease Myocardial infarction Angina at rest Thyroid disorder Grandfather Alcoholism Surgical History History of cholecystectomy (~1998) History of colonoscopy History of esophagogastroduodenoscopy (EGD) (~2015) History of hysterectomy (~1998) Social History household members: none Smoking Status: Former smoker quit date: 06/15/84 Tobacco: How many years used: 15 Electronic Cigarette Use: not used how long ago did patient quit smokin years second hand exposure: No alcohol intake: current alcohol intake frequency: holidays/special occasions only Alcohol type: wine substance use type: does not use what type of physical activity do you participate in: none ROS ROS ED ROS Narrative Pains. Weight loss. Headaches. Subjective fever and chills. Review of Systems ROS Unobtainable: Denies due to encephalopathy Constitutional Constitutional ED: Reports chills, fever(s), subjective, sweats and weight loss Eyes Eyes: Denies blurry vision ENT ENT ED: Denies ear pain Cardiovascular Cardiovascular: Denies chest pain Respiratory/Chest Respiratory/Chest: Denies cough Gastrointestinal Gastrointestinal: Denies abdominal pain Genitourinary Genitourinary ED: Denies dysuria or hematuria Musculoskeletal Musculoskeletal: Denies arthralgias or back pain Integumentary Denies abscess Neurologic Neurologic: Reports headache(s) Psychiatric Psychiatric: Denies anxiety Endocrine Endocrinology: Denies cold intolerance Hematologic/Lymphatic Hematologic/Lymphatic: Reports systems reviewed and no addt'l complaints, except as documented and none; Denies easy bruising or lymphadenopathy Allergic/Immunologic Allergic/Immunologic ED: Denies mouth swelling or tongue swelling EXAM Physical Exam Narrative Exam Narrative: Well-appearing 67-year-old female. Vital signs stable afebrile. H EENT exam unremarkable. No facial droop. Nontender. No trauma. Pupils round reactive light. Normal speech. Neck nontender. Lungs clear. Heart regular rhythm no murmur. Rate about 80. Abdomen soft nontender. Moving all 4 extremities. Nontender no edema. Normal strength and sensation. Back unremarkable. Neurologic exam normal. She is awake and alert no focal motor deficits. Const Vital Signs: 02/20/23 10:08 02/20/23 10:23 Temperature 97.1 F L Temperature Source Temporal Pulse Rate 84 Respiratory Rate 14 Respiratory Effort Normal Blood Pressure 164/108 H Blood Pressure Mean 126 Pulse Ox 97 Oxygen Delivery Method Room Air Positive well nourished and well developed; Negative for cachectic, contractures or unkempt General Appearance ED: well developed and NAD; Negative for unkempt, cachectic, contractures, cyanotic, diaphoretic or pallor Nutritional Appearance: Negative for cachectic HEENT Reports moist mucous membranes Negative for trauma or tenderness Eyes PERRL and EOMs intact bilaterally General Eye ED: Negative for pale conjunctiva, scleral icterus or other Neck no lymphadenopathy, supple and no JVD General: Negative for tenderness Chest Wall inspection of chest normal and palpation of chest normal Chest: Negative for other Resp normal respiratory effort and clear to auscultation bilaterally Effort and Inspection: Negative for retractions Auscultation: Negative for rales, rhonchi or wheezes Cardio regular rate, regular rhythm, S1 normal heart sound, S2 normal heart sound and no murmurs Rate: Negative for bradycardia or tachycardic GI normal to inspection, nondistended, normoactive bowel sounds, non-tender, non-distended and no masses Inspection: Negative for abdominal distention Auscultation: normoactive bowel sounds Palpation: soft; Negative for tender or guarding Bladder / Kidney Exam: No other Back/Spine no CVA tenderness General Back: Negative for CVA tenderness Cervical Spine: Negative for cervical spine tenderness Thoracic Spine / Upper Back: Negative for thoracic spinal tenderness Lumbar Spine / Lower Back: Negative for lumbar spinal tenderness Extremity normal to inspection General Extremety ED: Negative for edema or tenderness General Extremity: Negative for edema Neuro oriented x3 and CN's II-XII intact bilaterally Sensorium / Orientation: alert; Negative for orientation impaired, lethargic or stuporous Motor Exam: strength 5/5 throughout Psych mental status grossly normal Appearance: Negative for unkempt or other Attitude: No agitated Mood & Affect: Negative for depressed, anxious or tearful Skin no rashes or lesions noted, no wounds and skin turgor normal General Skin Exam: elasticity normal; Negative for jaundice or pallor Lesions: No lesion noted Rashes: No rashes noted Trauma: Negative for abrasion Wounds: Negative for wounds noted MDM MDM MDM Narrative Medical decision making narrative: 67-year-old female with malaise and headache. Exam benign. Screening labs being obtained along with a TSH because she has had trouble with treating her hypothyroidism for the last [address] of her brain due to a constant headache for months. Repeat a.m. patient doing well at 1:10 PM. No change. She has an unremarkable repeat exam. No significant change. She and I went over all of her test results. She is comfortable being discharged home with outpatient follow-up. History & Record Review Discussion w/independent historian: Patient Additional record(s) reviewed:: Prior inpatient record, Prior outpatient record, Prior ED visit and Prior labs Lab Data Attestation: I reviewed the patient's lab results. Lab results narrative: CBC normal. White count of 10. H&H 14 and 41. Platelets 316. BMP shows a sodium 135 gap of 3. Normal BUN and creatinine. Glucose 110. Liver enzymes are unremarkable other than alk phos of 125. TSH level is actually low at 0.18 CAT scan of the brain showed no acute abnormality as read by the radiologist. Labs: Laboratory Results - last 24 hr 02/20/23 11:00 WBC 10.2 RBC 4.73 Hgb 14.3 Hct 41.9 MCV 88.6 MCH 30.2 MCHC 34.1 RDW Std Deviation 41.4 RDW Coeff of Giancarlo 12.7 Plt Count 316 MPV 9.3 Immature Gran % (Auto) 0.300 Neut % (Auto) 59.5 Lymph % (Auto) 27.3 [place] % (Auto) 9.7 Eos % (Auto) 2.6 Baso % (Auto) 0.6 Absolute Neuts (auto) 6.1 Absolute Lymphs (auto) 2.77 Nucleated RBC % 0 Sodium 135 L Potassium 3.8 Chloride 103 Carbon Dioxide 29.0 Anion Gap 3 L BUN 16 Creatinine 0.90 Estim Creat Clear Calc 58.99 Est GFR (MDRD) Af Amer 80 Est GFR (MDRD) Non-Af 66 BUN/Creatinine Ratio 17.7 Glucose 110 H Calcium 9.3 Total Bilirubin 0.40 AST 21 ALT 30 Alkaline Phosphatase 125 H Total Protein 7.9 Albumin 3.4 Globulin 4.5 H Albumin/Globulin Ratio 0.8 L TSH 0.18 L Radiography Diagnostic Testing: Clinical Impression(s) from Imaging Studies Brain CT 02/20/23 10:54 IMPRESSION: Normal unenhanced CT scan of the brain. Electronically Signed: Ad Conner MD at 11:28 EDT , Rhythm Strip Rhythm Strip: Sinus Rhythm Rate: 72 Ectopy: None EKG Initial EKG: Attestation: I personally reviewed and interpreted this EKG as follows: Interpretation: Sinus Rhythm and No Acute Injury Pattern Comments: Normal sinus rhythm rate of 72 no acute signs of IL nor ischemia no dysrhythmia. Normal EKG. Discharge Plan Triage Chief Complaint: General Illness ED Provider: Rafael Bradford Dx/Rx/DC Orders Clinical Impression: Malaise, History of hypothyroidism Prescriptions: No Action (DME) blood pressure test kit-large Kit See Rx Instructions .ROUTE .MEDSUPPLY Qty: 1 0RF Rx Instructions: Check BP twice a day montelukast [Singulair] 10 mg tablet 10 mg PO QHS Spiriva Respimat 1.25 mcg/actuation mist 2 puff inhalation DAILY Qty: 4 6RF ipratropium bromide 21 mcg (0.03 %) spray,non-aerosol 2 spray intranasal BID-TID PRN (Reason: allergy symptoms) Qty: 30 4RF Rx Instructions: administer into each nostril triamcinolone acetonide 0.1 % cream 1 applic topical BID PRN (Reason: rash) Qty: 453.6 2RF levothyroxine 175 mcg tablet 175 mcg PO DAILY Qty: 90 2RF Rx Instructions: Take 1 tablet daily x 6 days then 1.5 tablet x 1 day calcium carbonate 500 mg calcium (1,250 mg) tablet,chewable 1,000 mg PO DAILY cholecalciferol (vitamin D3) 25 mcg (1,000 unit) tablet,chewable 2,000 unit PO DAILY ferrous gluconate 324 mg (37.5 mg iron) Tablet 324 mg PO DAILY mecobalamin (vitamin B12) 5,000 mcg Tablet,Disintegrating 5,000 mcg PO DAILY triamterene-hydrochlorothiazid 37.5-25 mg tablet 1 tab PO QAM Qty: 90 2RF rosuvastatin [Crestor] 40 mg tablet 40 mg PO DAILY Qty: 90 1RF trazodone 50 mg tablet 150 mg PO QHS PRN (Reason: Sleep) 90 Days Qty: 240 1RF fluticasone propionate 50 mcg/actuation spray,suspension 2 spray intranasal DAILY Qty: 3 3RF budesonide-formoterol [Symbicort] 160-4.5 mcg/actuation HFA aerosol inhaler 2 puff inhalation BID Qty: 3 3RF Rx Instructions: administer with spacer, rinse mouth after each use omeprazole 40 mg capsule,delayed release(DR/EC) 40 mg PO DAILY Qty: 90 3RF pramipexole 0.25 mg tablet 0.25 - 0.75 mg PO QHS Qty: 90 3RF potassium chloride 20 mEq tablet extended release 20 meq PO DAILY Qty: 90 2RF albuterol sulfate 90 mcg/actuation HFA aerosol inhaler 2 - 3 puff inhalation Q6H PRN (Reason: shortness of breath or wheezing) Qty: 8.5 3RF cetirizine 10 mg capsule 10 mg PO DAILY Qty: 30 1RF lubiprostone [Amitiza] 8 mcg capsule 8 mcg PO DAILY Qty: 30 2RF fluoxetine 40 mg capsule 40 mg PO DAILY Qty: 90 1RF Primary Care Provider: Joseph Smyth Referrals: Joseph Smyth MD [Primary Care Provider] - 1 Week Activity Restrictions/Additional Instructions: Your labs and CAT scan today were basically unremarkable other than your TSH was low at 0.18. Call and follow-up your primary care physician. You may want to discuss with them having you being evaluated by a contact center professional or specialist that deals with thyroid disease. Disposition Disposition: Home, Self Care
--- NOTE | 2023-02-20 10:54 | EKG12_ITS ---
Test Reason : GENERAL Blood Pressure : / mmHG Vent. Rate : 072 BPM Atrial Rate : 072 BPM P-R Int : 152 ms QRS Dur : 094 ms QT Int : 436 ms P-R-T Axes : 046 023 049 degrees QTc Int : 477 ms Normal sinus rhythm Normal ECG Confirmed by SANDY BOLDEN MD ([id number]), science editor TIFFANY HUNT ([id number]) on 02/26/2023 2:13:38 PM Referred By: Confirmed By:SANDY BOLDEN MD
--- NOTE | 2023-02-20 10:54 | CT_ITS ---
STUDY: CT BRAIN WITHOUT CONTRAST REASON FOR EXAM: Female, 67 years old. Headache RADIATION DOSAGE (If Supplied By Facility): CTDIvol = ( 44.99 ) mGy, DLP = ( 796.11 ) mGycm TECHNIQUE: Transaxial CT imaging of the brain was performed without administration of intravenous contrast material. Individualized dose optimization techniques were used for this CT. COMPARISON: Comparison is made with prior MRI of the brain dated March 22, 2020. FINDINGS: Normal soft tissue structures. There is hyperostosis frontalis internus. Normal size ventricles and extra-axial spaces for the patient''s age. Normal white matter tracts of the cerebral hemispheres. Normal basal ganglia and thalami. Normal brainstem. Normal cerebellum. There is no intracranial hemorrhage. There are no findings of an acute ischemic infarction. Normal visualized paranasal sinuses. CT/Brain/Head without Contrast IMPRESSION: Normal unenhanced CT scan of the brain. Electronically Signed: Ad Conner MD at 11:28 EDT ,
[2023-02-20 11:07] LABS: Absolute Lymphocyte Count 2.77 X10^3/uL (0.83-4.51); Absolute Neutrophil Count 6.1 X10^3/uL (2.0-7.7); Basophil# 0.06 X10^3/uL; Basophil% 0.6 % (0-1); Eosinophil# 0.26 X10^3/uL; Eosinophils% 2.6 % (0-5); Hematocrit 41.9 % (37-47); Hemoglobin 14.3 g/dL (12.0-15.0); Lymphocyte # 2.77 X10^3/ul (0.83-4.51); Lymphocyte % 27.3 % (19-41); Mean Corp Hgb Conc 34.1 g/dL (32-36); Mean Corpuscular Hgb 30.2 pg (27.0-32.0); Mean Corpuscular Volume 88.6 fL (81-99); Mean Platelet Vol. 9.3 fl (6.2-12.0); Monocyte# 0.99 X10^3/uL; Monocyte% 9.7 % (0-10); NRBC Flagged by Analyzer 0 % (0-5); Neutrophil # 6.05 X10^3/uL (2.7-7.7); Neutrophil % 59.5 % (47-70); Platelet Count 316 K/mm3 (150-450); RBC Distribution Width CV 12.7 % (11.6-14.6); RBC Distribution Width SD 41.4 fl (35.1-43.9); Red Blood Count 4.73 M/mm3 (4.2-5.4); White Blood Count 10.2 K/mm3 (4.4-11.0)
[2023-02-20 11:39] LABS: ALB/GLOB Ratio 0.8 RATIO (0.9-2.4); AST(SGOT) 21 U/L (15-37); Alanine Aminotransfer ALT/SGPT 30 U/L (13-56); Albumin, Serum 3.4 g/dL (3.2-5.0); Alkaline Phosphatase 125 U/L (45-117); Anion Gap 3 (5-15); BUN 16 mg/dL (7-18); BUN/Creat Ratio 17.7 RATIO (10-20); Calcium,Total 9.3 mg/dL (8.5-10.1); Chloride 103 mmol/L (98-107); EST Glomerular Filtration Rate 66 mL/min (>60); Est Glom Filt Rate - Afr Amer 80 mL/min (>60); Estimated Creatinine Clearance 58.99 ml/min; Globulin 4.5 g/dL (2.2-4.2); Glucose 110 mg/dL (74-106); Potassium 3.8 mmol/L (3.5-5.1); Protein, Total 7.9 g/dL (6.4-8.2); Sodium Level 135 mmol/L (136-145); Thyroid Stim Hormone (TSH) 0.18 uIU/mL (0.358-3.74)
[2023-02-20 13:27] VITALS: RESP 16
== END 2023-02-20 13:28 | disposition home or self-care (01) ==
PROVIDERS: Emergency Provider Emergency Medicine; PCP Internal Medicine; Visit Provider Emergency Medicine
DX: R53.81 Other malaise (principal); E03.9 Hypothyroidism, unspecified; Z79.899 Other long term (current) drug therapy; Z87.891 Personal history of nicotine dependence
CPT/HCPCS: 70450; 80053; 84443; 85025; 93005; 99283; A4216

== ENCOUNTER → 2023-02-27 | Outpatient (CLI) | payer MEDICARE, SELFPAY ==
[2023-02-27 08:44] LABS: Bacteria 0 SEEN /hpf (None Seen); Mucous, Urine 0 SEEN /hpf (<or=2+); Red Blood Cells-Urine 0 SEEN /hpf (0-5)
[2023-02-27 12:26] LABS: Color, Urine Yellow (Yellow); Glucose, Dipstick Normal (Normal); Ketone-Dipstick Negative (Negative); Leukocyte Esterase-Dipstick 100 /ul (Negative); Nitrite-Dipstick Negative (Negative); Occult Blood-Urine Negative /ul (Negative); Protein-Dipstick Negative (Negative); Urine Bilirubin Dipstick Negative (Negative); Urine Clarity Sl. Cloudy (Clear); Urine Urobilinogen Normal (Normal)
[2023-02-27 12:32] LABS: Squamous Epithelial Cells - UA 0-5 SEEN /hpf (5-10); White Blood Cells 10-25 SEEN /hpf (0-5)
== END | disposition home or self-care (01) ==
LOC: LABSPEC 08:43
PROVIDERS: PCP Internal Medicine; Referring Provider Internal Medicine; Visit Provider Internal Medicine
DX: R53.81 Other malaise (principal); R53.83 Other fatigue; Z87.440 Personal history of urinary (tract) infections
CPT/HCPCS: 81001

== ENCOUNTER → 2023-03-09 | Outpatient (CLI) | payer MEDICARE, SELFPAY ==
[2023-03-09 10:27] LABS: Absolute Neutrophil Count 5.3 X10^3/uL (2.0-7.7); Basophil% 0.9 % (0-1); Eosinophil# 0.24 X10^3/uL; Eosinophils% 2.2 % (0-5); Hematocrit 43.3 % (37-47); Hemoglobin 14.3 g/dL (12.0-15.0); Mean Corpuscular Hgb 29.6 pg (27.0-32.0); Mean Corpuscular Volume 89.6 fL (81-99); Mean Platelet Vol. 9.7 fl (6.2-12.0); NRBC Flagged by Analyzer 0 % (0-5); Neutrophil # 5.25 X10^3/uL (2.7-7.7); Neutrophil % 47.5 % (47-70); Platelet Count 389 K/mm3 (150-450); RBC Distribution Width CV 12.6 % (11.6-14.6); RBC Distribution Width SD 41.4 fl (35.1-43.9); Red Blood Count 4.83 M/mm3 (4.2-5.4)
[2023-03-09 11:44] LABS: ALB/GLOB Ratio 0.8 RATIO (0.9-2.4); AST(SGOT) 19 U/L (15-37); Alanine Aminotransfer ALT/SGPT 26 U/L (13-56); Albumin, Serum 3.7 g/dL (3.2-5.0); Alkaline Phosphatase 112 U/L (45-117); Amylase 40 U/L (25-115); Anion Gap 8 (5-15); BUN 16 mg/dL (7-18); BUN/Creat Ratio 13.4 RATIO (10-20); Calcium,Total 9.4 mg/dL (8.5-10.1); Chloride 98 mmol/L (98-107); Creatinine, Serum 1.19 mg/dL (0.55-1.02); EST Glomerular Filtration Rate 48 mL/min (>60); Est Glom Filt Rate - Afr Amer 58 mL/min (>60); Globulin 4.4 g/dL (2.2-4.2); Glucose 147 mg/dL (74-106); Lipase 36 U/L (13-75); Potassium 3.2 mmol/L (3.5-5.1); Protein, Total 8.1 g/dL (6.4-8.2); Sodium Level 136 mmol/L (136-145)
== END | disposition home or self-care (01) ==
LOC: LAB 09:46
PROVIDERS: PCP Internal Medicine; Referring Provider Internal Medicine Gastroenterology; Visit Provider Internal Medicine Gastroenterology
DX: R11.0 Nausea (principal); R19.7 Diarrhea, unspecified
CPT/HCPCS: 36415; 80053; 82150; 83690; 85025

== ENCOUNTER 2023-03-19 07:23 | Day surgery (SDC) | payer MEDICARE, SELFPAY ==
[2023-03-19] VITALS (7 sets, daily range): BP systolic 119–152; BP diastolic 58–77; PULSE 53–71; RESP 16; TEMP 36.2–36.6; O2SAT 93–99; BMI 43.4
[2023-03-19] MEDS: Lactated Ringers 1,000 ML 15 ML IV (07:55)
--- NOTE | 2023-03-19 08:30 | EGD_PTH ---
PATIENT: CULLEN CUEVA LOC: EN U#:[id number] AGE/SX: 67/F ROOM: RE03/19/[address]: Dr. Brant Langley DO : 1955 BED: DIS: 03/19/2023 SPEC #: [id number] RECD: 03/19/23 09:56 STATUS: ALTHEA REKadeem #: [id number] PEGGY: 03/19/23 08:[address]: Brant Langley DEPT: SURGICAL PATHOLOGY RECD BY: Eileen Beaulieu ENTERED: 03/19/23 10:51 SP TYPE: EGD BIOPSY JAIRO DR: Dr. Joseph Smyth MD Tissues: Esophagus, NOS Procedures: Special Stain Group II Surgery Specimen Level IV Alcian Blue/PAS (control) HEADER OPERATION: EGD (MAC), biopsy PRE-OP DIAGNOSIS: Stauffer's esophagus, constipation TISSUE SUBMITTED: Distal esophagus biopsy MICROSCOPIC DIAGNOSIS Distal esophagus, biopsy: Gastroesophageal junctional mucosa with mild chronic inflammation. No evidence of goblet cell metaplasia. See comment. AM:karen 03/20/2023 COMMENT Alcian blue/PAS stain with matched control supports the above diagnosis. MICROSCOPIC DESCRIPTION Slides are reviewed. GROSS DESCRIPTION Received in fixative is one container labeled with the patient's name and designated distal esophagus biopsy. The specimen consists of multiple irregular fragments of light may soft tissue that in aggregate measure 1.5 x 0.5 x 0.1 cm. The specimen is totally submitted in one cassette. / SJ:karen 03/19/2023 TC:5 CPT: 61093, 36741
--- NOTE | 2023-03-19 08:36 | PCM.HP.BLA ---
History and Physical Date of Admission: 03/19/23 RUBEN CUEVA, is a 67 F who presents to the office today for PCP OV 08.28.22 for yearly follow up. ? Colonoscopy Dr. Gonzales 02.07.19, screening diverticulosis; internal hemorrhoids. No specimens collected ? EGD Dr. Gonzales 06.01.20 non-severe reflux esophagitis without metaplasia; small hiatal hernia; multiple gastric fundic gland polyps; gastritis. H.Pylori negative. *BGI established 11.28.22 Known history of Stauffer?s diagnosed many years prior; currently taking omeprazole 40mg daily. Nausea and bloating with emesis, RUQ discomfort. Cholecystectomy age 40 during which three stones were visualized but only two retrieved. Bowels fluctuate between constipation (no BM 2-3 days or smaller harder stools several times a day) and loose stools which last no longer than a day, typically triggered by new foods, 1-2 times a week. ROS Const Constitutional: Positive for fatigue; No body ache, chills, excessive sweating, fever(s), frequent falls, headache(s), snoring, weakness, sleep problems or change in appetite Eyes Eyes: No blurry vision, change in vision, vision loss, dry eyes, floaters or Light sensitivity ENT ENT: No abnormal hearing, ear or mastoid pain, tinnitus, dizziness/vertigo, nosebleed/epistaxis, nasal congestion, nasal discharge, headache(s), neck pain or sore throat Resp Respiratory: No cough, excessive phlegm production, pain on inspiration, shortness of breath, snoring or wheezing Cardio Cardiology: No chest pain at rest, chest pain with exertion, excessive sweating, shortness of breath, dyspnea on exertion, lightheadedness, orthopnea or palpitations Gastro GI: No abdominal pain, change in bowel habits, constipation, cramping, diarrhea or nausea/dyspepsia Genitourinary-Female: No burning urination, painful urination, urinary incontinence or urinary frequency Musc Musculoskeletal: No abnormal gait, joint pain, back pain, limited range of motion, muscle weakness, neck pain or numbness Skin Skin: No dry skin, redness, excessive hair growth, yellowing of the eye, lesions, itchy eyes, rash or wounds Neuro Neurology: No abnormal gait, abnormal hearing, behavioral changes, unsteady gait/balance, weakness, frequent falls, headache(s), memory loss or numbness Psych Psychiatric: No anxiety, No behavioral changes, No change in appetite, No depression, No memory loss, No panic attacks and No Thoughts of harming yourself/Others Endo Endocrine: Positive for fatigue; No cold intolerance, excessive sweating, flushing, heat intolerance, increased thirst/drinking or increased hunger Aller/Imm Allergy/Immunologic: No itchy eyes, seasonal allergy symptoms, hives or wheezing Jere/Lymp Hematologic/Lymphatic: No easy bleeding, easy bruising or enlarged lymph nodes Exam Const General: cooperative, comfortable and no acute distress Orientation: alert, awake and oriented x3 HENMT Head: normal to inspection, normocephalic and atraumatic Ears: hearing grossly normal bilaterally Eyes General: appearance normal, both eyes and all related structures Neck Neck: normal visual inspection, full ROM, no lymphadenopathy and supple Neck mass: No Thyroid: thyroid normal Resp Effort & Inspection: normal respiratory effort and able to speak in complete sentences Auscultation: Bilateral: Clear to Auscultation Cardio Rate: regular rate Rhythm: regular rhythm Heart Sounds: S1 normal and S2 normal GI Palpation: soft (Nontender, no palpable organomegaly) Neuro General: patient alert, patient awake, patient oriented x3, moves all extremities and CN's II-XI intact bilaterally Extrem General: pedal edema Psych Appearance: grossly normal Mental Status: mental status grossly normal Mood: congruent mood Affect: normal affect Quality Reporting Tobacco Screening ([facility] 138) Smoking Status: Former smoker Assessment and Plan Assessment and Plan (1) Barretts esophagus: Status: Chronic Plan: She will undergo surveillance endoscopy for Stauffer's esophagus. We will continue her on her current medicine regimen. She was explained alternatives, risk, benefits including outstanding bleeding, infection, sepsis, perforation, need for emergent surgery . She will have an ASA 2. (2) Constipation: Status: Chronic Plan: She is complaining more constipation and diarrhea. Differential diagnosis does include overflow incontinence, diverticular disease, exocrine pancreatic insufficiency, low-grade ischemic colitis, medication side effect. She will go, thing, stool testing and possibly colonoscopy in the future. Patient is okay with this plan. Orders: Orders Gastrin, Serum Today K59.00 - Constipation, unspecified Allergen, Food Profile Today K59.00 - Constipation, unspecified CRP Today K59.00 - Constipation, unspecified LDH Today K59.00 - Constipation, unspecified Erythrocyte Sed Rate Today K59.00 - Constipation, unspecified Celiac Disease Profile Today K59.00 - Constipation, unspecified Immunoglobulin E Today K59.00 - Constipation, unspecified SREEKANTH Comprehensive Panel Today K59.00 - Constipation, unspecified Calprotectin, Stool Today K59.00 - Constipation, unspecified Stool Lactoferrin/WBC Today K58.9 - Irritable bowel syndrome without diarrhea, K59.00 - Constipation, unspecified ANCA Today K59.00 - Constipation, unspecified POLO + Protein Elect, Serum Today K59.00 - Constipation, unspecified Miscellaneous Lab Procedure Today K59.00 - Constipation, unspecified Miscellaneous Lab Procedure 2 Today K59.00 - Constipation, unspecified I have examined the patient and the H&P has been reviewed. There are no clinical changes since date of exam.
--- NOTE | 2023-03-19 08:51 | OP.EGD_ITS ---
Patient Name: Cathie Escudero Procedure Date: 03/19/2023 8:35 AM Date of : 1955 Age: 67 Procedure: Upper GI endoscopy Indications: Stauffer's esophagus Providers: Brant Langley DO Referring MD: Brant Langley DO Medicines: Monitored Anesthesia Care Patient Profile: This is a 67 year old female. Refer to note in patient chart for documentation of history and physical. Patient has symptoms of chronic heartburn. Her most recent EGD for Stauffer's biopsy. Complications: No immediate complications. Procedure: Pre-Anesthesia Assessment: - Prior to the procedure, a History and Physical was performed, and patient medications and allergies were reviewed. The patient is competent. The risks and benefits of the procedure and the sedation options and risks were discussed with the patient. All questions were answered and informed consent was obtained. Patient identification and proposed procedure were verified by the physician in the pre-procedure area. Mental Status Examination: alert and oriented. Airway Examination: normal oropharyngeal airway and neck mobility. Respiratory Examination: clear to auscultation. CV Examination: normal. Prophylactic Antibiotics: The patient does not require prophylactic antibiotics. Prior Anticoagulants: The patient has taken no anticoagulant or antiplatelet agents. ASA Grade Assessment: II - A patient with mild systemic disease. After reviewing the risks and benefits, the patient was deemed in satisfactory condition to undergo the procedure. The anesthesia plan was to use monitored anesthesia care (MAC). Immediately prior to administration of medications, the patient was re-assessed for adequacy to receive sedatives. The heart rate, respiratory rate, oxygen saturations, blood pressure, adequacy of pulmonary ventilation, and response to care were monitored throughout the procedure. The physical status of the patient was re-assessed after the procedure. After obtaining informed consent, the endoscope was passed under direct vision. Throughout the procedure, the patient's blood pressure, pulse, and oxygen saturations were monitored continuously. The gastroscope was introduced through the mouth, and advanced to the second part of duodenum. The upper GI endoscopy was accomplished without difficulty. The patient tolerated the procedure well. Scope In: 8:42:49 AM Scope Out: 8:45:46 AM Total Procedure Duration Time 0 hours 2 minutes 57 seconds Findings: There were esophageal mucosal changes secondary to established short-segment Stauffer's disease present in the lower third of the esophagus. The maximum longitudinal extent of these mucosal changes was 3 cm in length. Mucosa was biopsied with a cold forceps for histology in a targeted manner at intervals of 1 cm in the lower third of the esophagus. One specimen bottle was sent to pathology. Multiple small hyperplastic polyps with no bleeding and no stigmata of recent bleeding were found in the entire examined stomach. A small hiatal hernia was present. No gross lesions were noted in the first portion of the duodenum. Impression: - Esophageal mucosal changes secondary to established short-segment Stauffer's disease. Biopsied. - Multiple gastric polyps. - Small hiatal hernia. - No gross lesions in the first portion of the duodenum. Recommendation: - Await pathology results. - Repeat upper endoscopy for surveillance. - Continue present medications. Procedure Code(s): --- Professional --- 71465, Esophagogastroduodenoscopy, flexible, transoral; with biopsy, single or multiple CPT copyright 2021 [employer]. All rights reserved. The codes documented in this report are preliminary and upon data coder operator review may be revised to meet current compliance requirements. Brant Langley DO 03/19/2023 8:51:06 AM This report has been signed electronically. Number of Addenda: 0 Note Initiated On: 03/19/2023 8:35 AM
--- NOTE | 2023-03-19 08:51 | OP.CCLET_ITS ---
03/19/2023 Joseph Smyth MD [address] [place] [address] [place] [address] Re : Upper GI endoscopy procedure for Cathie Escudero Dear Dr. Smyth This procedure was performed on March. My impressions and recommendations are as follows: Impressions : - Esophageal mucosal changes secondary to established short-segment Stauffer's disease. Biopsied. - Multiple gastric polyps. - Small hiatal hernia. - No gross lesions in the first portion of the duodenum. Recommendations : - Await pathology results. - Repeat upper endoscopy for surveillance. - Continue present medications. My findings are described in the full procedure note, which is enclosed. If I can be of further assistance, please feel free to contact me at . Sincerely, Brant aLngley, 03/19/2023 8:51:06 AM This report has been signed electronically.
== END 2023-03-19 09:36 | disposition home or self-care (01) ==
LOC: EN 07:27 → AC 07:33
PROVIDERS: PCP Internal Medicine; Referring Provider Internal Medicine; Visit Provider Internal Medicine Gastroenterology
PROC: 0DJ08ZZ Inspection of Upper Intestinal Tract, Via Natural or Artificial Opening Endoscopic (ICD-10-PCS; CPT 43235; principal; 2023-03-19 08:25)
DX: K20.90 Esophagitis, unspecified without bleeding (principal); E66.01 Morbid (severe) obesity due to excess calories; Z68.41 Body mass index [BMI] 40.0-44.9, adult; K22.70 Barrett's esophagus without dysplasia; K44.9 Diaphragmatic hernia without obstruction or gangrene; Z87.891 Personal history of nicotine dependence; K31.7 Polyp of stomach and duodenum; K59.00 Constipation, unspecified; Z79.890 Hormone replacement therapy; Z79.899 Other long term (current) drug therapy; J45.909 Unspecified asthma, uncomplicated; I10 Essential (primary) hypertension; Z90.49 Acquired absence of other specified parts of digestive tract; E03.9 Hypothyroidism, unspecified
CPT/HCPCS: 43239; 88305; 88313; J7120; J2405

== ENCOUNTER → 2023-04-21 | Outpatient (CLI) | payer MEDICARE, SELFPAY | END | disposition home or self-care (01) | LOC: LAB 09:30 | PROVIDERS: PCP Internal Medicine; Referring Provider Internal Medicine; Visit Provider Internal Medicine | DX: E03.9 Hypothyroidism, unspecified (principal) | CPT/HCPCS: 36415; 84443 ==

== ENCOUNTER 2023-05-04 07:11 | Day surgery (SDC) | payer MEDICARE, SELFPAY ==
[2023-05-04 07:31] VITALS: BP 145/82; PULSE 79; RESP 16; TEMP 36.7; O2SAT 95; BMI 44.4
[2023-05-04] MEDS: Lactated Ringers 1,000 ML 15 ML IV (07:38)
--- NOTE | 2023-05-04 08:22 | RAD_ITS ---
STUDY: X-RAY - THORACIC SPINE REASON FOR EXAM: Female, 68 years old. Radiofrequency ablation. TECHNIQUE: 7 intraprocedural digital documentation view(s) of the thoracic spine were obtained. COMPARISON: None. FINDINGS: 7 intraprocedural digital documentation views show needles projected over the right side of the T9-T12 vertebral bodies. RAD/Thoracic Spine 3 Views IMPRESSION: Intraprocedural digital images. Electronically Signed: Preston Funes MD at 15:24 EST ,
[2023-05-04] MEDS: Lidocaine 1% (20 ml mdv) 20 ML Vial (08:31)
[2023-05-04] MEDS: MethylPREDNISolone Acetate 40 MG/ML Vial (08:32)
--- NOTE | 2023-05-04 08:43 | PCM.OPRPT ---
Report of Operation Date of Procedure: 05/04/23 Description of Surgical Findings:: PREOPERATIVE DIAGNOSES: 1.Thoracic spondylosis. 2.Thoracic degenerative disk disease. 3.Thoracic facet arthropathy. POSTOPERATIVE DIAGNOSES: 1.Thoracic spondylosis. 2.Thoracic degenerative disk disease. 3.Thoracic facet arthropathy. PROCEDURE PERFORMED:?Left?-sided thoracic radiofrequency ablation of the medial branch at T7, T8, T9. ANESTHESIA:? MAC. BLOOD LOSS:? Minimal. COMPLICATIONS:? None. DESCRIPTION OF PROCEDURE:? History and physical of today was reviewed.? Risks and benefits of the procedure were explained.? The patient understood and agreed to proceed.? Informed consent was obtained.? IV inserted per routine protocol.? The patient was taken to the operating room and placed in the prone position with a pillow positioned underneath the chest.? The mid back area was prepped and draped in a sterile fashion using iodine x3.? Under fluoroscopy guidance in an oblique view, the T7 through T10 vertebral bodies were visualized.? The skin and subcutaneous tissue was anesthetized with approximately 10 mL of 1% lidocaine using a 25-gauge regular needle.? Under direct visualization on fluoroscopy at approximately 25-degree angle, starting on the left 10, ending on the left?T7, passing through the T8 and T9, using a 20-gauge 10-cm with a 10-mm curved active-tip radiofrequency ablation needle, the needle was passed through the skin.? The tip of the needle was maneuvered and directed towards the epiphyseal junction of each corresponding vertebra.? Once the tip of the needle was at the vicinity of the medial branch and in contact with the bone, the needle was pulled approximately 2 mm off the bone.? The stylette of each needle was then removed.? After negative aspiration of blood or CSF and confirmation on AP, oblique as well as lateral view, the radiofrequency ablation probe was then inserted at each level.? Impedance was then recorded at T7 to be 297 ohm, at T8 to be 291 ohm, at T9 to be 275 ohm, and at T10 to be 323 ohm.? Motor-evoked potential was then initiated to 2 HZ and 1.5 volts without any motor response at each corresponding level.? The probe was then removed intact and a total of 8 cc of preservative-free 2% lidocaine was injected in divided doses between those four levels after negative aspiration of blood or CSF.? The radiofrequency ablation probe was then reinserted.? After confirmation on AP, oblique as well as lateral view, radiofrequency ablation was then initiated to 80 degree Celsius for 90 second at each level.? Once concluded, the probe was then removed intact.? A total of 6 cc??of preservative-free 0.25% Marcaine with 40 mg of Depo-Medrol was injected in divided doses between those four levels.? The needles were then removed intact.? The patient experienced no sign or symptoms of intrathecal or intravascular injection.? The patient experienced no paresthesia. Assessment and plan: This is a 68-year-old female with thoracic spondylosis, thoracic degenerative disc disease, thoracic facet arthropathy, status post left-sided thoracic radiofrequency ablation of the medial branch at T7-T9, patient will continue her current medications, patient will follow up in approximately 2 weeks for reevaluation.
[2023-05-04 08:45] VITALS: BP 103/50; BP 145/82; PULSE 69; RESP 16; TEMP 36.4; O2SAT 96
[2023-05-04 08:50] VITALS: BP 115/57; BP 145/82; PULSE 65; RESP 16; O2SAT 93
[2023-05-04 08:55] VITALS: BP 122/56; BP 145/82; PULSE 63; RESP 16; O2SAT 96
[2023-05-04 09:00] VITALS: BP 124/56; BP 145/82; PULSE 65; RESP 16; TEMP 36.9; O2SAT 97
[2023-05-04 09:16] VITALS: BP 145/82
== END 2023-05-04 09:19 | disposition home or self-care (01) ==
LOC: SDC 07:15 → AC 07:15
PROVIDERS: PCP Internal Medicine; Referring Provider Anesthesiology Pain Medicine; Visit Provider Anesthesiology Pain Medicine
PROC: (CPT 64633; principal; 2023-05-04 08:55)
DX: M47.814 Spondylosis without myelopathy or radiculopathy, thoracic region (principal); M51.34 Other intervertebral disc degeneration, thoracic region
CPT/HCPCS: 64633; 64634; 00620; 72072; 76000; J7120

== ENCOUNTER → 2023-05-19 | Outpatient (CLI) | payer MEDICARE, SELFPAY ==
--- NOTE | 2023-05-19 06:38 | MRI_ITS ---
MRCP without contrast 05/19/2023 6:54 AM COMPARISON: None CLINICAL HISTORY: choledocholithiasis TECHNIQUE: Multiplanar and multisequence MR images of the abdomen were obtained with MRCP sequence. Three-dimensional post-processing reconstructions were performed. FINDINGS: Liver: Unremarkable Gallbladder: Unremarkable Bile Ducts: Unremarkable Pancreas: 1 cm T2 hyperintense cystic lesion in the head of the pancreas. No main pancreatic duct dilatation. Spleen: Unremarkable Adrenal Glands: Unremarkable Kidneys: Unremarkable GI Tract: Unremarkable Lymphadenopathy: Absent Ascites: Absent Bones: No suspicious lesions MRI/MRCP Abdomen without Contrast IMPRESSION: No acute abnormalities. Specifically, no evidence of choledocholithiasis. 1 cm T2 hyperintense cystic lesion in the head of the pancreas without main pancreatic duct dilatation. This most likely represents a primary cystic neoplasm of the pancreas such as side branch intraductal papillary mucinous neoplasm (IPMN). Recommend follow-up MRCP w/ and w/out contrast in one year to document stability. Electronically Signed: eJremy Powell MD at 18:30 EST ,
[2023-05-19 08:15] LABS: Anion Gap 4 (5-15); BUN 16 mg/dL (7-18); BUN/Creat Ratio 17.2 RATIO (10-20); Calcium,Total 8.8 mg/dL (8.5-10.1); Chloride 105 mmol/L (98-107); Creatinine, Serum 0.93 mg/dL (0.55-1.02); EST Glomerular Filtration Rate 64 mL/min (>60); Est Glom Filt Rate - Afr Amer 77 mL/min (>60); Glucose 109 mg/dL (74-106); Potassium 3.8 mmol/L (3.5-5.1); Sodium Level 137 mmol/L (136-145)
== END | disposition home or self-care (01) ==
PROVIDERS: PCP Internal Medicine; Referring Provider Internal Medicine Gastroenterology; Visit Provider Internal Medicine Gastroenterology
DX: K80.50 Calculus of bile duct without cholangitis or cholecystitis without obstruction (principal); I10 Essential (primary) hypertension
CPT/HCPCS: 36415; 74181; 80048

== ENCOUNTER 2023-06-29 06:55 | Day surgery (SDC) | payer MEDICARE, SELFPAY ==
[2023-06-29 07:13] VITALS: BP 151/75; PULSE 73; RESP 18; TEMP 35.9; O2SAT 97; BMI 43.5
[2023-06-29] MEDS: Lactated Ringers 1,000 ML 15 ML IV (07:15)
--- NOTE | 2023-06-29 08:15 | RAD_ITS ---
PROCEDURE: Right thoracic nerve ablation. DATE OF EXAMINATION: June 29, 2023. INDICATION: Female, 68 years old. Chronic back pain. FLUOROSCOPY TIME (if supplied): (21.3 seconds) minutes/seconds. 10.63 mGy. 9 images were submitted. RAD/Thoracic Spine 3 Views IMPRESSION: Intraoperative imaging provided for right thoracic nerve ablation. Electronically Signed: Ad Conner MD at 12:47 EST ,
[2023-06-29] MEDS: MethylPREDNISolone Acetate 40 MG/ML Vial (08:36)
[2023-06-29] MEDS: Lidocaine 1% (30 ml sdv) 30 ML Vial (08:36)
--- NOTE | 2023-06-29 08:49 | PCM.OPRPT ---
Report of Operation Date of Procedure: 06/29/23 Description of Surgical Findings:: PREOPERATIVE DIAGNOSES: 1.Thoracic spondylosis. 2.Thoracic degenerative disk disease. 3.Thoracic facet arthropathy. POSTOPERATIVE DIAGNOSES: 1.Thoracic spondylosis. 2.Thoracic degenerative disk disease. 3.Thoracic facet arthropathy. PROCEDURE PERFORMED:?Right?-sided thoracic radiofrequency ablation of the medial branch at T7, T8, T9. ANESTHESIA:? MAC. BLOOD LOSS:? Minimal. COMPLICATIONS:? None. DESCRIPTION OF PROCEDURE:? History and physical of today was reviewed.? Risks and benefits of the procedure were explained.? The patient understood and agreed to proceed.? Informed consent was obtained.? IV inserted per routine protocol.? The patient was taken to the operating room and placed in the prone position with a pillow positioned underneath the chest.? The mid back area was prepped and draped in a sterile fashion using iodine x3.? Under fluoroscopy guidance in an oblique view, the T7 through T10 vertebral bodies were visualized.? The skin and subcutaneous tissue was anesthetized with approximately 10 mL of 1% lidocaine using a 25-gauge regular needle.? Under direct visualization on fluoroscopy at approximately 25-degree angle, starting on the right 10, ending on the right?T7, passing through the T8 and T9, using a 20-gauge 10-cm with a 10-mm curved active-tip radiofrequency ablation needle, the needle was passed through the skin.? The tip of the needle was maneuvered and directed towards the epiphyseal junction of each corresponding vertebra.? Once the tip of the needle was at the vicinity of the medial branch and in contact with the bone, the needle was pulled approximately 2 mm off the bone.? The stylette of each needle was then removed.? After negative aspiration of blood or CSF and confirmation on AP, oblique as well as lateral view, the radiofrequency ablation probe was then inserted at each level.? Impedance was then recorded at T7 to be 267 ohm, at T8 to be 262 ohm, at T9 to be 247 ohm, and at T10 to be 249 ohm.? Motor-evoked potential was then initiated to 2 HZ and 1.5 volts without any motor response at each corresponding level.? The probe was then removed intact and a total of 8 cc of preservative-free 2% lidocaine was injected in divided doses between those four levels after negative aspiration of blood or CSF.? The radiofrequency ablation probe was then reinserted.? After confirmation on AP, oblique as well as lateral view, radiofrequency ablation was then initiated to 80 degree Celsius for 90 second at each level.? Once concluded, the probe was then removed intact.? A total of 6 cc??of preservative-free 0.25% Marcaine with 40 mg of Depo-Medrol was injected in divided doses between those four levels.? The needles were then removed intact.? The patient experienced no sign or symptoms of intrathecal or intravascular injection.? The patient experienced no paresthesia. Assessment and plan: This is a 68-year-old female with thoracic spondylosis, thoracic degenerative disc disease, thoracic facet arthropathy, status post right-sided thoracic radiofrequency ablation of the medial branch at T7-T9, patient will continue her current medications, patient will follow up in approximately 2 weeks for reevaluation.
[2023-06-29 08:50] VITALS: BP 119/58; BP 151/75; PULSE 62; RESP 16; TEMP 36.2; O2SAT 97
[2023-06-29 08:55] VITALS: BP 121/74; BP 151/75; PULSE 67; RESP 16; O2SAT 92
[2023-06-29 09:00] VITALS: BP 125/73; BP 151/75; PULSE 63; RESP 16; TEMP 36.1; O2SAT 94
[2023-06-29 09:28] VITALS: BP 151/75
== END 2023-06-29 09:28 | disposition home or self-care (01) ==
LOC: SDC 06:56 → AC 06:58
PROVIDERS: PCP Internal Medicine; Referring Provider Anesthesiology Pain Medicine; Visit Provider Anesthesiology Pain Medicine
PROC: (CPT 64633; principal; 2023-06-29 08:25)
DX: M47.814 Spondylosis without myelopathy or radiculopathy, thoracic region (principal); M51.34 Other intervertebral disc degeneration, thoracic region; I10 Essential (primary) hypertension; E78.5 Hyperlipidemia, unspecified; J45.909 Unspecified asthma, uncomplicated; E03.9 Hypothyroidism, unspecified; Z79.51 Long term (current) use of inhaled steroids; Z79.890 Hormone replacement therapy; Z79.899 Other long term (current) drug therapy
CPT/HCPCS: 64633; 64634; 01992; 72072; 76000; J7120

== ENCOUNTER → 2023-07-01 | Outpatient (CLI) | payer MEDICARE, SELFPAY ==
[2023-07-02 08:11] LABS: Carbohydrate AG 19-9 4 U/mL (0-35)
== END | disposition home or self-care (01) ==
LOC: LAB 07:09
PROVIDERS: PCP Internal Medicine; Referring Provider Internal Medicine Gastroenterology; Visit Provider Internal Medicine Gastroenterology
DX: K86.9 Disease of pancreas, unspecified (principal)
CPT/HCPCS: 36415; 82378; 86301

== ENCOUNTER → 2023-07-29 | Outpatient (CLI) | payer MEDICARE, SELFPAY ==
[2023-07-29 12:32] LABS: Absolute Lymphocyte Count 2.44 X10^3/uL (0.83-4.51); Absolute Neutrophil Count 3.6 X10^3/uL (2.0-7.7); Basophil# 0.05 X10^3/uL; Basophil% 0.7 % (0-1); Eosinophil# 0.25 X10^3/uL; Eosinophils% 3.6 % (0-5); Hematocrit 39.8 % (37-47); Hemoglobin 13.1 g/dL (12.0-15.0); Lymphocyte # 2.44 X10^3/ul (0.83-4.51); Lymphocyte % 35.4 % (19-41); Mean Corp Hgb Conc 32.9 g/dL (32-36); Mean Corpuscular Hgb 29.8 pg (27.0-32.0); Mean Corpuscular Volume 90.5 fL (81-99); Mean Platelet Vol. 9.8 fl (6.2-12.0); Monocyte# 0.56 X10^3/uL; Monocyte% 8.1 % (0-10); NRBC Flagged by Analyzer 0 % (0-5); Neutrophil # 3.57 X10^3/uL (2.7-7.7); Neutrophil % 51.9 % (47-70); Platelet Count 323 K/mm3 (150-450); RBC Distribution Width CV 13.3 % (11.6-14.6); RBC Distribution Width SD 44.3 fl (35.1-43.9); White Blood Count 6.9 K/mm3 (4.4-11.0)
[2023-07-29 13:13] LABS: Anion Gap 7 (5-15); BUN 13 mg/dL (7-18); BUN/Creat Ratio 13.9 RATIO (10-20); Calcium,Total 9.1 mg/dL (8.5-10.1); Chloride 107 mmol/L (98-107); Creatinine, Serum 0.94 mg/dL (0.55-1.02); EST Glomerular Filtration Rate 63 mL/min (>60); Est Glom Filt Rate - Afr Amer 76 mL/min (>60); Glucose 156 mg/dL (74-106); Potassium 3.8 mmol/L (3.5-5.1); Sodium Level 139 mmol/L (136-145); Thyroid Stim Hormone (TSH) 0.93 uIU/mL (0.358-3.74)
== END | disposition home or self-care (01) ==
LOC: BIMLAB 09:28
PROVIDERS: PCP Internal Medicine; Referring Provider Internal Medicine; Visit Provider Internal Medicine
DX: I10 Essential (primary) hypertension (principal); R73.03 Prediabetes; E03.9 Hypothyroidism, unspecified
CPT/HCPCS: 36415; 80048; 83036; 84443; 85025

== ENCOUNTER 2023-10-30 11:05 | Outpatient (CLI) | payer MEDICARE, SELFPAY ==
[2023-10-30 12:23] LABS: Anion Gap 4 (5-15); BUN 19 mg/dL (7-18); BUN/Creat Ratio 26.1 RATIO (10-20); Chloride 107 mmol/L (98-107); Creatinine, Serum 0.73 mg/dL (0.55-1.02); EST Glomerular Filtration Rate 85 mL/min (>60); Est Glom Filt Rate - Afr Amer 102 mL/min (>60); Glucose 137 mg/dL (74-106); Sodium Level 139 mmol/L (136-145)
[2023-10-31 08:11] LABS: Carbohydrate AG 19-9 4 U/mL (0-35)
== END 2023-10-30 23:59 | disposition home or self-care (01) ==
LOC: BIMLAB 11:05
PROVIDERS: Internal Medicine Gastroenterology; PCP Internal Medicine; Visit Provider Internal Medicine
DX: I10 Essential (primary) hypertension (principal); D49.0 Neoplasm of unspecified behavior of digestive system
CPT/HCPCS: 36415; 80048; 86301

== ENCOUNTER → 2024-02-01 | Outpatient (CLI) | payer MEDICARE, SELFPAY ==
[2024-02-01 12:37] LABS: Absolute Neutrophil Count 5.9 X10^3/uL (2.0-7.7); Basophil# 0.09 X10^3/uL; Basophil% 0.9 % (0-1); Eosinophil# 0.33 X10^3/uL; Eosinophils% 3.2 % (0-5); Hematocrit 44.4 % (37-47); Hemoglobin 14.6 g/dL (12.0-15.0); Lymphocyte % 30.7 % (19-41); Mean Corp Hgb Conc 32.9 g/dL (32-36); Mean Corpuscular Hgb 29.5 pg (27.0-32.0); Mean Corpuscular Volume 89.7 fL (81-99); Mean Platelet Vol. 9.6 fl (6.2-12.0); Monocyte# 0.89 X10^3/uL; Monocyte% 8.5 % (0-10); NRBC Flagged by Analyzer 0 % (0-5); Neutrophil # 5.89 X10^3/uL (2.7-7.7); Neutrophil % 56.4 % (47-70); Platelet Count 374 K/mm3 (150-450); RBC Distribution Width CV 13.2 % (11.6-14.6); RBC Distribution Width SD 43.2 fl (35.1-43.9); Red Blood Count 4.95 M/mm3 (4.2-5.4); White Blood Count 10.4 K/mm3 (4.4-11.0)
[2024-02-01 12:56] LABS: ALB/GLOB Ratio 0.9 RATIO (0.9-2.4); AST(SGOT) 20 U/L (15-37); Alanine Aminotransfer ALT/SGPT 29 U/L (13-56); Albumin, Serum 3.5 g/dL (3.2-5.0); Alkaline Phosphatase 109 U/L (45-117); Anion Gap 9 (5-15); BUN 12 mg/dL (7-18); BUN/Creat Ratio 13.6 RATIO (10-20); Calcium,Total 8.9 mg/dL (8.5-10.1); Chloride 105 mmol/L (98-107); Creatinine, Serum 0.88 mg/dL (0.55-1.02); EST Glomerular Filtration Rate 67 mL/min (>60); Est Glom Filt Rate - Afr Amer 82 mL/min (>60); Globulin 4.1 g/dL (2.2-4.2); Glucose 121 mg/dL (74-106); Potassium 3.8 mmol/L (3.5-5.1); Protein, Total 7.6 g/dL (6.4-8.2); Sodium Level 137 mmol/L (136-145)
== END | disposition home or self-care (01) ==
LOC: BIMLAB 09:47
PROVIDERS: PCP Internal Medicine; Referring Provider Internal Medicine; Visit Provider Internal Medicine
DX: E03.9 Hypothyroidism, unspecified (principal); I10 Essential (primary) hypertension
CPT/HCPCS: 36415; 80053; 84443; 85025

== ENCOUNTER → 2024-03-03 | Outpatient (CLI) | payer MEDICARE, SELFPAY ==
--- NOTE | 2024-03-03 09:44 | BD_ITS ---
STUDY: DUAL ENERGY X-RAY ABSORPTIOMETRY / DXA REASON FOR EXAM: Female, 68 years old. Post menopausal TECHNIQUE: Bone Mineral Density (BMD) measurements of lumbar spine and bilateral hips were obtained. COMPARISON: Comparison is made with prior study dated August 15, 2020. FINDINGS: Lumbar Spine (L1-L4): g/cm2 (1.052) / T-score (0.3) / Z-score (2.3) Findings are suggestive of normal bone density with a low fracture risk. Left Femur Total: g/cm2 (1.060) / T-score (1.0) / Z-score (2.4) Left Femoral Neck: g/cm2 (0.878) / T-score (0.3) / Z-score (2.0) Right Femur Total: g/cm2 (1.075) / T-score (1.1) / Z-score (2.5) Right Femoral Neck: g/cm2 (0.904) / T-score (0.5) / Z-score (2.2) The T-Scores on the most recent prior examination were: Lumbar Spine (L1-L4): There has been worsening of bone density since the previous examination. Left Femur Total: which represents a worsening of 4.4%. Right Femur Total: which represents a worsening of 2.5%. BD/Dexa Bone Density Study IMPRESSION: The patient is considered normal as outlined below according to World Kt Organization (WHO) criteria with a low fracture risk. There has been worsening of bone density since the previous examination. Reference Information: The T-score is the number of standard deviations above or below the standard which is normal for young adults at their peak bone mineral density. The World Health Organization (WHO) interprets the T-scores as follows: Above -1 Normal bone density Between -1 and -2.5 Osteopenia Equal to / or below -2.5 Osteoporosis As a practical clinical guideline, osteopenia may be graded as follows: Mild -1 through -1.5 Moderate -1.6 through -2.0 Severe -2.1 through -2.4 The Z-score is the number of standard deviations above or below age-matched controls. A Z-score of less than -1.5 would be considered abnormal. References: 1. NIH Osteoporosis and Related Bone Diseases www osteo.org 2. International Society for Clinical Densitometry www iscd.org 3. National Osteoporosis Foundation www nof.org Electronically Signed: Ad Conner MD at 11:12 EDT ,
--- NOTE | 2024-03-03 09:44 | BI_ITS ---
MAMMOGRAPHY - BILATERAL SCREENING REASON FOR EXAM: Female, 68 years old. Routine annual screening examination. PERTINENT HISTORY: Non-contributory. TECHNIQUE: Digital bilateral breast hanane (3D mammographic acquisition) in the CC and MLO projections. 2-D mediolateral oblique (MLO) and craniocaudad (CC) views of both breasts were obtained. CAD: Full Field Digital Mammography with Computer Added Detection was performed. COMPARISON: Comparison is made with prior study September 25, 2022. FINDINGS: Breast Composition: There are scattered areas of fibroglandular density. There is a 9.1 mm x 8 mm nodular density in the upper central left breast. Dilated correlation with ultrasound recommended. Stable small benign-appearing bilateral axillary lymph nodes. No other significant abnormalities are identified. BI/SCRN MAMM (CAD)W/HANANE BILAT IMPRESSION: 9.1 mm x 8 mm nodular density in the upper central left breast. Correlation with ultrasound recommended. ASSESSMENT CATEGORY: BIRADS Category 0: Incomplete. Need additional imaging evaluation. A letter regarding these results will be sent to the patient by the facility within 30 days. Approximately 10% of breast cancers are not detected by mammography. A normal mammogram should not delay biopsy of a clinically suspicious abnormality. [id number] Electronically Signed: Ad Conner MD at 11:08 EDT ,
== END | disposition home or self-care (01) ==
LOC: OPBD 09:44
PROVIDERS: PCP Internal Medicine; Referring Provider Internal Medicine; Visit Provider Internal Medicine
DX: Z12.31 Encounter for screening mammogram for malignant neoplasm of breast (principal); Z78.0 Asymptomatic menopausal state
CPT/HCPCS: 77063; 77067; 77080

== ENCOUNTER → 2024-03-10 | Outpatient (CLI) | payer MEDICARE, SELFPAY ==
--- NOTE | 2024-03-10 08:58 | US_ITS ---
STUDY: ULTRASOUND BREAST - LEFT REASON FOR EXAM: Female, 68 years old. Abnormal mammogram. TECHNIQUE: Axial and longitudinal images of the LEFT breast were performed with a high resolution ultrasound transducer. # OF IMAGES: 68 COMPARISON: Comparison with prior mammogram dated March 03, 2024. FINDINGS: LEFT Breast: The upper outer quadrant of the left breast was examined with ultrasound. There is a 7 mm x 4 mm x 3 mm cyst at the 12:00 position of the breast at 5 cm from nipple. A similar-appearing cyst measuring 5 mm x 5 mm x 3 mm are seen adjacent. US/Breast Limited Unilateral IMPRESSION: 2 cysts are seen. ASSESSMENT CATEGORY: BIRADS Category 2: Benign. A letter regarding these results will be sent to the patient by the facility within 30 days. Electronically Signed: Ad Conner MD at 12:12 EDT ,
== END | disposition home or self-care (01) ==
PROVIDERS: PCP Internal Medicine; Referring Provider Internal Medicine; Visit Provider Internal Medicine
DX: N63.25 Unspecified lump in the left breast, overlapping quadrants (principal)
CPT/HCPCS: 76642

== ENCOUNTER → 2024-04-22 | Outpatient (CLI) | payer MEDICARE, SELFPAY | END | disposition home or self-care (01) | PROVIDERS: PCP Internal Medicine; Referring Provider Nurse Practitioner; Visit Provider Nurse Practitioner | DX: R13.10 Dysphagia, unspecified (principal) | CPT/HCPCS: 76536 ==

== ENCOUNTER → 2024-05-02 | Outpatient (CLI) | payer MEDICARE, SELFPAY ==
[2024-05-02 12:49] LABS: Absolute Lymphocyte Count 2.15 X10^3/uL (0.83-4.51); Absolute Neutrophil Count 6.2 X10^3/uL (2.0-7.7); Basophil# 0.04 X10^3/uL; Basophil% 0.4 % (0-1); Eosinophil# 0.14 X10^3/uL; Eosinophils% 1.5 % (0-5); Hemoglobin 14.3 g/dL (12.0-15.0); Lymphocyte # 2.15 X10^3/ul (0.83-4.51); Mean Corp Hgb Conc 33.3 g/dL (32-36); Mean Corpuscular Volume 90.1 fL (81-99); Mean Platelet Vol. 9.8 fl (6.2-12.0); Monocyte% 8.6 % (0-10); NRBC Flagged by Analyzer 0 % (0-5); Neutrophil # 6.18 X10^3/uL (2.7-7.7); Neutrophil % 66.1 % (47-70); Platelet Count 323 K/mm3 (150-450); RBC Distribution Width CV 13.1 % (11.6-14.6); Red Blood Count 4.77 M/mm3 (4.2-5.4); White Blood Count 9.4 K/mm3 (4.4-11.0)
[2024-05-02 13:08] LABS: Anion Gap 8 (5-15); BUN 15 mg/dL (7-18); BUN/Creat Ratio 19.3 RATIO (10-20); Calcium,Total 9.2 mg/dL (8.5-10.1); Chloride 105 mmol/L (98-107); Creatinine, Serum 0.78 mg/dL (0.55-1.02); EST Glomerular Filtration Rate 78 mL/min (>60); Est Glom Filt Rate - Afr Amer 95 mL/min (>60); Glucose 123 mg/dL (74-106); Potassium 3.5 mmol/L (3.5-5.1); Sodium Level 138 mmol/L (136-145)
== END | disposition home or self-care (01) ==
LOC: BIMLAB 10:24
PROVIDERS: PCP Internal Medicine; Visit Provider Internal Medicine
DX: R73.03 Prediabetes (principal); E03.9 Hypothyroidism, unspecified; E78.5 Hyperlipidemia, unspecified
CPT/HCPCS: 36415; 80048; 84443; 85025

== ENCOUNTER → 2024-05-24 | Outpatient (CLI) | payer MEDICARE, SELFPAY ==
--- NOTE | 2024-05-24 07:50 | MRI_ITS ---
EXAM: MR ABDOMEN WITHOUT AND WITH INTRAVENOUS CONTRAST CLINICAL INDICATION: CYST IN UNCINATE PROCESS PANCREAS FOLLOW UP PLEASE COMPARE TO PREVIOUS TECHNIQUE: Multiplanar and multisequence MR images of the abdomen without and with intravenous contrast. CONTRAST: IV CLARISCAN 27ML COMPARISON: MRCP of 05/19/2023. FINDINGS: LOWER THORAX: Unremarkable. No pleural effusion. LIVER: Unremarkable. Normal morphology. No focal mass. GALLBLADDER AND BILE DUCTS: Unremarkable. No gallstones. No gallbladder distention or wall edema. No intra- or extrahepatic biliary ductal dilation. PANCREAS: Previously described 1 cm cystic lesion in the head of the pancreas is not definitely identified on this exam. SPLEEN: Normal size without focal cystic or solid mass. ADRENALS: No nodules. KIDNEYS AND URETERS: Normal renal size and position. No hydronephrosis. INTRAPERITONEAL SPACE: No ascites or other fluid collection. No free air. VASCULATURE: Abdominal aorta is non-dilated. LYMPH NODES: No enlarged lymph nodes. MRI/MRI Abd WITH and W/O Contrast IMPRESSION: Previously described 1 cm cystic lesion in the head of the pancreas is not definitely identified on this exam. Repeat MRI of the pancreas with contrast in one year is recommended. Electronically Signed: Joseph Simpson MD at 14:03 EST ,
== END | disposition home or self-care (01) ==
PROVIDERS: PCP Internal Medicine
DX: D49.0 Neoplasm of unspecified behavior of digestive system (principal)
CPT/HCPCS: 74183; A9575

== ENCOUNTER 2024-10-26 13:04 | Day surgery (SDC) | payer MEDICARE, SELFPAY ==
--- NOTE | 2024-10-24 16:23 | PAT.ANESEVAL ---
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 When Was Last Pacemaker Check QUESTION #4 FULL TEXT: You/Your Family Experience fever (hyperthermia) with Anesthesia Last Oral Intake Last Oral intake: Last Oral Intake NPO since Meds taken in AM with sips of water? Meds patient instructed to take am of surgery PONV PONV - diversity manager: PONV - diversity manager Female Yes 10/24/24 13:50 HX of Motion Sickness Yes 10/24/24 13:50 HX of N/V After Surgery No 10/24/24 13:50 Non-Smoker Yes 10/24/24 13:50 Duration of Surgery greater No 10/24/24 13:50 than 60 minutes Number of Risk Factors 3 10/24/24 13:50 PONV Score Moderate Risk 10/24/24 13:50 Height & Weight Height & Weight: Anesthesia: Height & Weight Height 5 ft 7 in 09/23/24 08:28 Respiratory Assessment Respiratory Assessment - diversity manager: Respiratory Tract Infection Hx - diversity manager Hx Respiratory Tract Infection No 10/24/24 13:50 STOP Sleep Apnea STOP Sleep Apnea - diversity manager: STOP Sleep Apnea - diversity manager Hx Hypertension No 10/24/24 13:50 Hx Sleep Apnea Yes 10/24/24 13:50 CPAP No 10/24/24 13:50 BIPAP Yes 10/24/24 13:50 Do you snore loudly (louder than talking or can be heard Do you often feel tired/ fatigued/ sleepy during daytime? Has anyone observed you stop breathing during sleep? STOP Results Positive 10/24/24 13:50 QUESTION #5 FULL TEXT : Do you snore loudly (louder than talking or can be heard through closed doors)? 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 Specify any problems Hx of Preganancy in last 3 No 10/24/24 13:50 Months Nurse Filling Out Transfusion MGCONCHA 10/24/24 13:50 & Questions: Date: 10/24/24 10/24/24 13:50 Time: 13:52 10/24/24 13:50 Patient unable to answer at this time (ie. confused, unrespo /Reproduction History /Reproductive History - diversity manager: /Reproductive Hx- diversity manager Hx Now No 10/24/24 13:50 Gestational Age (in weeks): EDC: Hx Hx Para Hx Section SAB No 10/24/24 13:50 PFSH Medical History (Updated 10/24/24 @ 14:00 by Mana Shaw) Shortness of breath on exertion Anxiety and depression History of fall Chronic back pain Borderline type 2 diabetes mellitus Flu vaccine need Hx: UTI (urinary tract infection) Malaise and fatigue Allergies Dysuria Blood glucose elevated Dry skin dermatitis Musculoskeletal back pain Venous insufficiency of both lower extremities Post-menopausal Marijuana use Injury of back Restless legs History of diverticulitis Gastric reflux Former smoker BiPAP (biphasic positive airway pressure) dependence Leg cramps History of edema History of stress test History of echocardiogram Cardiology follow-up encounter Health care maintenance Insomnia Asthma exacerbation Scoliosis Essential hypertension Family history of coronary artery disease Epigastric abdominal tenderness Sinusitis Chest congestion Routine health maintenance History of gallstones Back problem Arthritis Diverticulitis Barretts esophagus Depression (emotion) Morbid obesity with BMI of 40.0-44.9, adult Anxiety Hypothyroidism Respiratory insufficiency Hyperlipemia Home Medications ?Medication ?Instructions ?Recorded ?Last Taken ?Type calcium carbonate 1,000 mg PO DAILY 06/22/20 12/05/20 History cholecalciferol (vitamin D3) 25 2,000 unit PO DAILY 06/22/20 12/05/20 History mcg (1,000 unit) chewable tablet mecobalamin (vitamin B12) 5,000 5,000 mcg PO DAILY SUPPLEMENT 12/05/20 12/05/20 History mcg disintegrating tablet triamcinolone acetonide 0.1 % 1 applic topical BID PRN rash 08/29/22 Unknown Rx topical cream #453.6 grams tiotropium bromide 1.25 2 puff inhalation DAILY PRN SOB 02/27/23 Unknown History mcg/actuation mist for inhalation (Spiriva Respimat) budesonide-formoterol HFA 160 2 puff inhalation BID PRN ASTHMA 04/30/23 Unknown History mcg-4.5 mcg/actuation aerosol inhaler (Symbicort) montelukast 10 mg tablet 10 mg PO QHS PRN ALLERGIES 10/30/23 Unknown History (Singulair) compress.stocking,knee,reg,lrg #2 ea 11/02/23 Unknown Rx albuterol sulfate 90 mcg/actuation 2 - 3 puff inhalation Q6H PRN 05/10/24 Unknown Rx aerosol inhaler shortness of breath or wheezing #8.5 grams rosuvastatin 40 mg tablet (Crestor) 40 mg PO DAILY #90 tabs 07/28/24 Unknown Rx levothyroxine 175 mcg tablet 175 mcg PO DAILY #90 tabs 08/22/24 Unknown Rx omeprazole 40 mg capsule,delayed 40 mg PO DAILY #90 caps 08/22/24 Unknown Rx release zolpidem 5 mg tablet 5 mg PO QHS PRN insomnia #30 tabs 09/23/24 Unknown Rx pramipexole 0.25 mg tablet 0.25 - 0.75 mg (1 - 3 x 0.25 mg) 10/10/24 Unknown Rx PO QHS RLS #90 tabs fluoxetine 20 mg capsule 20 mg PO QDAY #90 caps 10/21/24 Unknown Rx fluoxetine 40 mg capsule 40 mg PO DAILY #90 caps 10/21/24 Unknown Rx ferrous sulfate 325 mg (65 mg 325 mg PO DAILY 10/24/24 Unknown History iron) tablet (FeroSul) trazodone 50 mg tablet See Rx Instructions PO QHS PRN 10/24/24 Unknown History Sleep Allergy/AdvReac Type Severity Reaction Status Date / Time pravastatin (From Pravachol) Allergy Mild itching Verified 10/24/24 13:44 ketoprofen (From Orudis) Allergy Nausea/Vom/ Verified 10/24/24 13:44 Diarrhea hydrochlorothiazide (From AdvReac Intermediate Other Verified 10/24/24 13:44 Dyazide) triamterene (From Dyazide) AdvReac Intermediate Other Verified 10/24/24 13:44 Family History Sister CAD (coronary artery disease) Thyroid disorder Brother CAD (coronary artery disease) Heart disease Myocardial infarction Alcoholism Angina at rest Mother Diabetes Myocardial infarction Father Hypertension Heart disease Myocardial infarction Angina at rest Thyroid disorder Grandfather Alcoholism Surgical History H/O cataract removal with insertion of prosthetic lens History of thoracic surgery History of cholecystectomy (~1998) History of hysterectomy (~1998) History of colonoscopy History of esophagogastroduodenoscopy (EGD) (~2015) Social History household members: none Smoking Status: Former smoker quit date: 06/15/84 Tobacco: How many years used: 15 Electronic Cigarette Use: not used how long ago did patient quit smokin years second hand exposure: No alcohol intake: current alcohol intake frequency: holidays/special occasions only Alcohol type: wine substance use type: does not use what type of physical activity do you participate in: none Audit: Pertinent Findings Pertinent Findings EKG Perinent findings: 02/20/2023. Normal sinus rhythm. Stress test pertinent findings: 12/06/2020. EF 76%. Negative for reversible myocardial ischemia. Echo (EF%) pertinent findings: 11/30/2020. EF 60%. PASP is 30 mmHg. No aortic stenosis. Consult pertinent findings: February 06, 2021. Dr. Starks. 1. Shortness of breath?acute-patient's stress test and echo are normal. Very mild pulmonary hypertension. No therapy warranted. No cardiac testing is warranted at this time. In the future if shortness of breath worsens patient may warrant a cardiac cath. Recommendation Anesthesia Recommendation Anesthesia recommendation: OPTIMIZED for anesthesia
[2024-10-26] VITALS (7 sets, daily range): BP systolic 123–165; BP diastolic 66–76; PULSE 68–83; RESP 16; TEMP 36.1–36.5; O2SAT 94–97; BMI 47.4
[2024-10-26] MEDS: Lactated Ringers 1,000 ML 15 ML IV (13:50)
--- NOTE | 2024-10-26 14:15 | EGD_PTH ---
PATIENT: CULLEN CUEVA LOC: EN U#:[id number] AGE/SX: 69/F ROOM: RE10/26/[address]: Dr. Brant Langley DO : 1955 BED: DIS: 10/26/2024 SPEC #: [id number] RECD: 10/26/24 17:52 STATUS: ALTHEA REKadeem #: [id number] PEGGY: 10/26/24 14:[address]: Brant Langley DEPT: SURGICAL PATHOLOGY RECD BY: Nathan Ashley ENTERED: 10/27/24 09:02 SP TYPE: EGD BIOPSY JAIRO DR: Dr. Joseph Smyth MD Tissues: A - Esophagus, NOS Procedures: Surgery Specimen Level IV HEADER OPERATION: EGD with biopsy PRE-OP DIAGNOSIS: Dysphagia, globus sensation, Stauffer's esophagus TISSUE SUBMITTED: A- Distal esophagus biopsy MICROSCOPIC DIAGNOSIS A. Esophagus, distal, biopsy: Squamous mucosa with mild reactive change. Columnar mucosa negative for goblet cell metaplasia. MICROSCOPIC DESCRIPTION Slides are reviewed. GROSS DESCRIPTION A. Received in formalin in a container labeled with the patient's name, date of , and distal esophagus biopsy are 2 may-pink fragments of mucosal tissue measuring 0.4 x 0.4 x 0.2 cm and 0.7 x 0.2 x 0.2 cm. Submitted in toto in A1. [facility] 10-27-2024 CPT:34398
--- NOTE | 2024-10-26 14:27 | PRE.ANES_ITS ---
ASA Classification* ASA Classification ASA Classification: 3 Assessment & Plan Anesthesia* Anesthesia Assessment Anesthesia Assessment: Discussed sedation and/or anesthesia options, risks, benefits, and alternatives with patient/parents/legal guardian/POA. Questions invited. The patient/parents/legal guardian/POA seems to understand and agrees to proceed with anesthesia plan. Reviewed the physical assessment, medical history, allergy history and patient home medications list prior to surgery/procedure/anesthetic and documented any changes. Performed airway and anesthesia risk assessments. Anesthesia Type Anesthesia Type: MAC History Source History Obtained from:: Patient and Chart Anesthesia Focused Assessment* Temperature: 97 F Pulse Rate: 77 Blood Pressure: 165/68 Respiratory Rate: 16 Pulse Ox: 97 Oxygen Delivery Method: Room Air Airway Assessment Mouth opens: >3 cm Mallampati Score: II Teeth Condition: Intact Neck Range of motion (ROM): Full ROM Comment: Upper permanent bridge Focused Labs Anesthesia Preop lab: CBC WBC 9.4 K/mm3 (4.4-11.0) 05/02/24 10:05/02/24 RBC 4.77 M/mm3 (4.2-5.4) 05/02/24 10:24 05/02/24 Hgb 14.3 g/dL (12.0-15.0) 05/02/24 10:24 05/02/24 Hct 43.0 % (37-47) 05/02/24 10:24 05/02/24 Plt Count 323 K/mm3 (150-450) 05/02/24 10:24 05/02/24 CHEMISTRY Potassium 3.5 mmol/L (3.5-5.1) 05/02/24 10:24 05/02/24 Sodium 138 mmol/L (136-145) 05/02/24 10:24 05/02/24 Magnesium 2.3 mg/dL (1.6-2.6) 10/08/21 10:35 10/08/21 Phosphorus 4.3 mg/dL (2.5-4.9) 09/25/15 07:42 09/25/15 BUN 15 mg/dL (7-18) 05/02/24 10:24 05/02/24 Creatinine 0.78 mg/dL (0.55-1.02) 05/02/24 10:24 05/02/24 Glucose 123 mg/dL (74-106) H 05/02/24 10:24 05/02/24 TSH 0.850 uIU/mL (0.358-3.740) 05/02/24 10:04/15 COAG Pre-Assessment Diagnosis/Proposed Procedure Planned Operative Procedure(s): EGD Anesthesia History 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 When Was Last Pacemaker Check QUESTION #4 FULL TEXT: You/Your Family Experience fever (hyperthermia) with Anesthesia Last Oral Intake Last Oral intake: Last Oral Intake NPO since 08:00 10/26/24 13:44 Meds taken in AM with sips of Yes 10/26/24 13:44 water? Meds patient instructed to take am of surgery PONV PONV - scarfing machine operator: PONV - scarfing machine operator Female Yes 10/24/24 13:50 HX of Motion Sickness Yes 10/24/24 13:50 HX of N/V After Surgery No 10/24/24 13:50 Non-Smoker Yes 10/24/24 13:50 Duration of Surgery greater No 10/24/24 13:50 than 60 minutes Number of Risk Factors 3 10/24/24 13:50 PONV Score Moderate Risk 10/24/24 13:50 Height & Weight Height & Weight: Anesthesia: Height & Weight Height 5 ft 7 in 10/26/24 13:44 Weight: 137.4 kg 10/26/24 13:44 Body Mass Index (BMI) 47.4 10/26/24 13:44 Respiratory Assessment Respiratory Assessment - scarfing machine operator: Respiratory Tract Infection Hx - scarfing machine operator Hx Respiratory Tract Infection No 10/24/24 13:50 STOP Sleep Apnea STOP Sleep Apnea - scarfing machine operator: STOP Sleep Apnea - scarfing machine operator Hx Hypertension No 10/24/24 13:50 Hx Sleep Apnea Yes 10/24/24 13:50 CPAP No 10/24/24 13:50 BIPAP Yes 10/24/24 13:50 Do you snore loudly (louder than talking or can be heard Do you often feel tired/ fatigued/ sleepy during daytime? Has anyone observed you stop breathing during sleep? STOP Results Positive 10/24/24 13:50 QUESTION #5 FULL TEXT : Do you snore loudly (louder than talking or can be heard through closed doors)? 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 Specify any problems Hx of Preganancy in last 3 No 10/24/24 13:50 Months Nurse Filling Out Transfusion MGRIFFITH 10/24/24 13:50 & Questions: Date: 10/24/24 10/24/24 13:50 Time: 13:52 10/24/24 13:50 Patient unable to answer at this time (ie. confused, unrespo /Reproduction History /Reproductive History - scarfing machine operator: /Reproductive Hx- scarfing machine operator Hx Now No 10/24/24 13:50 Gestational Age (in weeks): EDC: Hx Hx Para Hx Section SAB No 10/24/24 13:50 Active Medications Active Medications: Current Medications Generic Name Dose Route Start Last Admin Trade Name Freq PRN Reason Stop Dose Admin Lactated Ringer's 1,000 mls @ 15 mls/hr 10/26/24 13:45 10/26/24 13:50 IV 15 mls/hr .Q48H RAMANA Administration PFSH Medical History Shortness of breath on exertion Anxiety and depression History of fall Chronic back pain Borderline type 2 diabetes mellitus Flu vaccine need Hx: UTI (urinary tract infection) Malaise and fatigue Allergies Dysuria Blood glucose elevated Dry skin dermatitis Musculoskeletal back pain Venous insufficiency of both lower extremities Post-menopausal Marijuana use Injury of back Restless legs History of diverticulitis Gastric reflux Former smoker BiPAP (biphasic positive airway pressure) dependence Leg cramps History of edema History of stress test History of echocardiogram Cardiology follow-up encounter Health care maintenance Insomnia Asthma exacerbation Scoliosis Essential hypertension Family history of coronary artery disease Epigastric abdominal tenderness Sinusitis Chest congestion Routine health maintenance History of gallstones Back problem Arthritis Diverticulitis Barretts esophagus Depression (emotion) Morbid obesity with BMI of 40.0-44.9, adult Anxiety Hypothyroidism Respiratory insufficiency Hyperlipemia Home Medications ?Medication ?Instructions ?Recorded ?Last Taken ?Type calcium carbonate 1,000 mg PO DAILY 06/22/20 0 12/05/20 History cholecalciferol (vitamin D3) 25 2,000 unit PO DAILY 12/05/20 History mcg (1,000 unit) chewable tablet mecobalamin (vitamin B12) 5,000 5,000 mcg PO DAILY SUP PLEMENT 12/05/20 12/05/20 History mcg disintegrating tablet triamcinolone acetonide 0.1 % 1 applic topical BID PRN rash 08/29/22 Unknown Rx topical cream #453.6 grams tiotropium bromide 1.25 2 puff inhalation DAILY PRN SOB 02/27/23 Unknown History mcg/actuation mist for inhalation (Spiriva Respimat) budesonide-formoterol HFA 160 2 puff inhalation BID [place] N ASTHMA 04/30/23 Unknown History mcg-4.5 mcg/actuation aerosol inhaler (Symbicort) montelukast 10 mg tablet 10 mg PO QHS PRN ALLERGIES 0 10/30/23 Unknown History (Singulair) compress.stocking,knee,reg,lrg #2 ea 11/02/23 Unknown Rx albuterol sulfate 90 mcg/actuation 2 - 3 puff inhalati on Q6H PRN 05/10/24 Unknown Rx aerosol inhaler shortness of breath or wheez ing #8.5 grams rosuvastatin 40 mg tablet (Crestor) 40 mg PO DAILY #90 tabs 07/28/24 Unknown Rx levothyroxine 175 mcg tablet 175 mcg PO DAILY #90 tabs 08/22/24 10/26/24 Rx omeprazole 40 mg capsule,delayed 40 mg PO DAILY #90 ca ps 08/22/24 10/26/24 Rx release zolpidem 5 mg tablet 5 mg PO QHS PRN insomnia #30 tabs 09/23/24 Unknown Rx pramipexole 0.25 mg tablet 0.25 - 0.75 mg (1 - 3 x 0.2 5 mg) 10/10/24 Unknown Rx PO QHS RLS #90 tabs fluoxetine 20 mg capsule 20 mg PO QDAY #90 caps 10/21 Unknown Rx fluoxetine 40 mg capsule 40 mg PO DAILY #90 caps 03/09 Unknown Rx ferrous sulfate 325 mg (65 mg 325 mg PO DAILY 10/24/24 Unknown History iron) tablet (FeroSul) trazodone 50 mg tablet See Rx Instructions PO QHS P RN 10/24/24 Unknown History Sleep Allergy/AdvReac Type Severity Reaction Status Date / Time pravastatin (From Pravachol) Allergy Mild itching Verified 10/26/24 13:34 ketoprofen (From Orudis) Allergy Nausea/Vom/ Verified 10/26/24 13:34 Diarrhea hydrochlorothiazide (From AdvReac Intermediate Other Verified 10/26/24 13:34 Dyazide) triamterene (From Dyazide) AdvReac Intermediate Other Verified 10/26/24 13:34 Family History Sister CAD (coronary artery disease) Thyroid disorder Brother CAD (coronary artery disease) Heart disease Myocardial infarction Alcoholism Angina at rest Mother Diabetes Myocardial infarction Father Hypertension Heart disease Myocardial infarction Angina at rest Thyroid disorder Grandfather Alcoholism Surgical History H/O cataract removal with insertion of prosthetic lens History of thoracic surgery History of cholecystectomy (~1998) History of hysterectomy (~1998) History of colonoscopy History of esophagogastroduodenoscopy (EGD) (~2015) Social History household members: none Smoking Status: Former smoker quit date: 06/15/84 Tobacco: How many years used: 15 Electronic Cigarette Use: not used how long ago did patient quit smokin years second hand exposure: No alcohol intake: current alcohol intake frequency: holidays/special occasions only Alcohol type: wine substance use type: does not use what type of physical activity do you participate in: none Review of Systems (Anesthesia) ROS Narrative System reviewed and no additional complaints, except as documented.
--- NOTE | 2024-10-26 14:27 | HP.PCM_ITS ---
HPI - General General Date of Admission: 10/26/24 Date of Service: 10/26/24 Chief Complaint: urbano's esophagus HPI Narrative CULLEN CUEVA, is a 69 F who presentsPATRICPHILIP CUEVA, is a 69 F who presents to the office today for follow up. PCP OV 08.28.22 for yearly follow up. ? Colonoscopy Dr. Gonzales 02.07.19, screening diverticulosis; internal hemorrhoids. No specimens collected ? EGD Dr. Gonzales 06.01.20 non-severe reflux esophagitis without metaplasia; small hiatal hernia; multiple gastric fundic gland polyps; gastritis. H.Pylori negative. *BGI established 11.28.22 Known history of Urbano?s diagnosed many years prior; currently taking omeprazole 40mg daily. Nausea and bloating with emesis, RUQ discomfort. Cholecystectomy age 40 during which three stones were visualized but only two retrieved. Bowels fluctuate between constipation (no BM 2-3 days or smaller harder stools several times a day) and loose stools which last no longer than a day, typically triggered by new foods, 1-2 times a week. ? Biochemical ESR, LDH, RAST, SREEKANTH comp, ANCA, gastrin, GAME, POLO, chromogranin A, IBD without pertinent abnormality ? CRP H5.44, gastrin H135. RAST High: shrimp ? Stool calprotectin, lactoferrin WNL Contact 12.23.22 with results noting difficulty with constipation. Start amitiza 8mcg QD and increase to BID in seven days if no improvement. Contact 03.06.23 with itching and nausea. ? Biochemical CBC, CMP, LFT (K+L3.2), amylase, lipase without additional pertinent abnormality. ? EGD 03.19.23 short-segment Urbano?s, metaplasia neg; multiple hy perplastic gastric polyps; small hiatal hernia. Contact 04.02.23 reporting improvement of symptoms following elimination of a medication. OV 11.9.23 diazide stopped which caused resolution of symptoms. Continues with Amitiza 8mcg QD PRN as routine use causes loose stools. ? MRCP .11.04 hyperintense cystic lesion of pancreatic head without ductal dilation, most likely primary cystic neoplasm ie. IPMN. Recommend repeat MRCP in one year for stability. Contact 06.30.23 with MRCP results; recommend tumor markers for baseline ? Biochemical CA19-9, CEA WNL OV 07.09.23 reports she is having some intermittent nausea and afternoon/evening bloating. OV 5.12.07 pt reports increased difficulty swallowing, stating that things are getting caught and cutting off her trachea. Notes nausea about 3 times a week, cannot pinpoint trigger or alleviating factors. [facility] Medical History Shortness of breath on exertion Anxiety and depression History of fall Chronic back pain Borderline type 2 diabetes mellitus Flu vaccine need Hx: UTI (urinary tract infection) Malaise and fatigue Allergies Dysuria Blood glucose elevated Dry skin dermatitis Musculoskeletal back pain Venous insufficiency of both lower extremities Post-menopausal Marijuana use Injury of back Restless legs History of diverticulitis Gastric reflux Former smoker BiPAP (biphasic positive airway pressure) dependence Leg cramps History of edema History of stress test History of echocardiogram Cardiology follow-up encounter Health care maintenance Insomnia Asthma exacerbation Scoliosis Essential hypertension Family history of coronary artery disease Epigastric abdominal tenderness Sinusitis Chest congestion Routine health maintenance History of gallstones Back problem Arthritis Diverticulitis Barretts esophagus Depression (emotion) Morbid obesity with BMI of 40.0-44.9, adult Anxiety Hypothyroidism Respiratory insufficiency Hyperlipemia Home Medications ?Medication ?Instructions ?Recorded ?Last Taken ?Type calcium carbonate 1,000 mg PO DAILY 06/22/20 0 12/05/20 History cholecalciferol (vitamin D3) 25 2,000 unit PO DAILY 12/05/20 History mcg (1,000 unit) chewable tablet mecobalamin (vitamin B12) 5,000 5,000 mcg PO DAILY SUP PLEMENT 12/05/20 12/05/20 History mcg disintegrating tablet triamcinolone acetonide 0.1 % 1 applic topical BID PRN rash 08/29/22 Unknown Rx topical cream #453.6 grams tiotropium bromide 1.25 2 puff inhalation DAILY PRN SOB 02/27/23 Unknown History mcg/actuation mist for inhalation (Spiriva Respimat) budesonide-formoterol HFA 160 2 puff inhalation BID NM N ASTHMA 04/30/23 Unknown History mcg-4.5 mcg/actuation aerosol inhaler (Symbicort) montelukast 10 mg tablet 10 mg PO QHS PRN ALLERGIES 0 10/30/23 Unknown History (Singulair) compress.stocking,knee,reg,lrg #2 ea 11/02/23 Unknown Rx albuterol sulfate 90 mcg/actuation 2 - 3 puff inhalati on Q6H PRN 05/10/24 Unknown Rx aerosol inhaler shortness of breath or wheez ing #8.5 grams rosuvastatin 40 mg tablet (Crestor) 40 mg PO DAILY #90 tabs 07/28/24 Unknown Rx levothyroxine 175 mcg tablet 175 mcg PO DAILY #90 tabs 08/22/24 10/26/24 Rx omeprazole 40 mg capsule,delayed 40 mg PO DAILY #90 ca ps 08/22/24 10/26/24 Rx release zolpidem 5 mg tablet 5 mg PO QHS PRN insomnia #30 tabs 09/23/24 Unknown Rx pramipexole 0.25 mg tablet 0.25 - 0.75 mg (1 - 3 x 0.2 5 mg) 10/10/24 Unknown Rx PO QHS RLS #90 tabs fluoxetine 20 mg capsule 20 mg PO QDAY #90 caps 10/21 Unknown Rx fluoxetine 40 mg capsule 40 mg PO DAILY #90 caps 03/09 Unknown Rx ferrous sulfate 325 mg (65 mg 325 mg PO DAILY 10/24/24 Unknown History iron) tablet (FeroSul) trazodone 50 mg tablet See Rx Instructions PO QHS P RN 10/24/24 Unknown History Sleep Allergy/AdvReac Type Severity Reaction Status Date / Time pravastatin (From Pravachol) Allergy Mild itching Verified 10/26/24 13:34 ketoprofen (From Orudis) Allergy Nausea/Vom/ Verified 10/26/24 13:34 Diarrhea hydrochlorothiazide (From AdvReac Intermediate Other Verified 10/26/24 13:34 Dyazide) triamterene (From Dyazide) AdvReac Intermediate Other Verified 10/26/24 13:34 Family History Sister CAD (coronary artery disease) Thyroid disorder Brother CAD (coronary artery disease) Heart disease Myocardial infarction Alcoholism Angina at rest Mother Diabetes Myocardial infarction Father Hypertension Heart disease Myocardial infarction Angina at rest Thyroid disorder Grandfather Alcoholism Surgical History H/O cataract removal with insertion of prosthetic lens History of thoracic surgery History of cholecystectomy (~1998) History of hysterectomy (~1998) History of colonoscopy History of esophagogastroduodenoscopy (EGD) (~2015) Social History household members: none Smoking Status: Former smoker quit date: 06/15/84 Tobacco: How many years used: 15 Electronic Cigarette Use: not used how long ago did patient quit smokin years second hand exposure: No alcohol intake: current alcohol intake frequency: holidays/special occasions only Alcohol type: wine substance use type: does not use what type of physical activity do you participate in: none ROS Constitutional Constitutional: Denies fatigue, fever(s), poor appetite, weight gain or weight loss Gastrointestinal Gastrointestinal: Denies belching, bloating, change in bowel habits, change in stool character, chewing difficulty, coffee ground emesis, constipation, cramping, diarrhea, dyspepsia, dysphagia, early satiety, excessive flatus, fecal incontinence, heartburn, hematemesis, hematochezia, hemorrhoids, loose stools, melena, nausea, odynophagia, rectal bleeding, tenesmus, vomiting or weight changes Vital Signs Vital Signs Vital Signs: 10/26/24 13:44 10/26/24 13:44 Temperature 97 F L Temperature Source Temporal Pulse Rate 77 Respiratory Rate 16 Respiratory Pattern Normal Blood Pressure 165/68 H Blood Pressure Mean 100 Blood Pressure Source Monitor Blood Pressure Position Semi-Fowlers Blood Pressure Location Right Arm Pulse Ox 97 Oxygen Delivery Method Room Air Weight Weight: 302 lb 14.642 oz Body Mass Index (BMI) 47.4 Physical Exam Const alert, oriented x3, no apparent distress and healthy appearing General Appearance: cooperative GI normal to inspection, nondistended, normoactive bowel sounds, soft to palpation, non-tender and non-distended Percussion: normal to percussion Rectal Exam: deferred Assessment & Plan Assessment/Plan (1) Dysphagia: (2) Globus sensation: (3) Barretts esophagus: QUALIFIERS: Urbano's esophagus type: without dysplasia Qualified Code(s): K22.70 - Urbano's esophagus without dysplasia PLAN: Assessment and Plan Assessment and Plan (1) Barretts esophagus: Status: Chronic Qualifiers: Urbano's esophagus type: without dysplasia Qualified Code(s): K22.70 - Urbano's esophagus without dysplasia Plan: She will undergo surveillance endoscopy for Urbano's esophagus. We will continue her on her current medicine regimen. She was explained alternatives, risk, benefits including outstanding bleeding, infection, sepsis, perforation, need for emergent surgery . She will have an ASA 2. Upper endoscopy did show anirregular distal esophagus. However her biopsies did not show intestinal metaplasia, dysplasia or cancer. She is continuing PPI therapy and not having any breakthrough symptoms at this time. (2) Constipation: Status: Chronic Qualifiers: Constipation type: slow transit constipation Qualified Code(s): K59.01 - Slow transit constipation Plan: She is complaining more constipation and diarrhea. Differential diagnosis does include overflow incontinence, diverticular disease, exocrine pancreatic insufficiency, low-grade ischemic colitis, medication side effect. She will go, thing, stool testing and possibly colonoscopy in the future. Patient is okay with this plan. We started on Amitiza and she is actually doing very well with Amitiza. It is allowing her to have a daily bowel movement. We will continue that for the near future over the next 6 months. (3) Pancreatic lesion: Status: Chronic Comment: MRCP 05.19.23 (4) Choledocholithiasis: Status: Acute Plan: She has history of choledocholithiasis. Since she is having right upper quadrant pain we will order an MRCP. MRCP: Specifically, no evidence of choledocholithiasis. 1 cm T2 hyperintense cystic lesion in the head of the pancreas without main pancreatic duct dilatation. This most likely represents a primary cystic neoplasm of the pancreas such as side branch intraductal papillary mucinous neoplasm (IPMN). Recommend: Repeat MRCP in 4 months and repeat CA 19-9 in 4 months
--- NOTE | 2024-10-26 15:10 | OP.EGD_ITS ---
Patient Name: Cathie Escudero Procedure Date: 10/26/2024 2:48 PM Date of : 1955 Age: 69 Procedure: Upper GI endoscopy Indications: Follow-up of Stauffer's esophagus Providers: Brant Langley DO Referring MD: Joseph Smyth MD Medicines: Monitored Anesthesia Care Patient Profile: This is a 69 year old female. Refer to note in patient chart for documentation of history and physical. Patient has symptoms of chronic heartburn. Complications: No immediate complications. Procedure: Pre-Anesthesia Assessment: - Prior to the procedure, a History and Physical was performed, and patient medications and allergies were reviewed. The patient is competent. The risks and benefits of the procedure and the sedation options and risks were discussed with the patient. All questions were answered and informed consent was obtained. Patient identification and proposed procedure were verified by the physician in the pre-procedure area. Mental Status Examination: alert and oriented. Airway Examination: normal oropharyngeal airway and neck mobility. Respiratory Examination: clear to auscultation. CV Examination: normal. Prophylactic Antibiotics: The patient does not require prophylactic antibiotics. Prior Anticoagulants: The patient has taken no anticoagulant or antiplatelet agents except for NSAID medication. ASA Grade Assessment: III - A patient with severe systemic disease. After reviewing the risks and benefits, the patient was deemed in satisfactory condition to undergo the procedure. The anesthesia plan was to use monitored anesthesia care (MAC). Immediately prior to administration of medications, the patient was re-assessed for adequacy to receive sedatives. The heart rate, respiratory rate, oxygen saturations, blood pressure, adequacy of pulmonary ventilation, and response to care were monitored throughout the procedure. The physical status of the patient was re-assessed after the procedure. After obtaining informed consent, the endoscope was passed under direct vision. Throughout the procedure, the patient's blood pressure, pulse, and oxygen saturations were monitored continuously. The gastroscope was introduced through the mouth, and advanced to the second part of duodenum. The upper GI endoscopy was accomplished without difficulty. The patient tolerated the procedure well. Scope In: 2:59:07 PM Scope Out: 3:01:01 PM Total Procedure Duration Time 0 hours 1 minute 54 seconds Findings: The esophagus and gastroesophageal junction were examined with white light from a forward view and retroflexed position. There were esophageal mucosal changes secondary to established short-segment Stauffer's disease. These changes involved the mucosa at the upper extent of the gastric folds (39 cm from the incisors) extending to the Z-line (43 cm from the incisors). Stanton-colored mucosa was present. The maximum longitudinal extent of these esophageal mucosal changes was 5 cm in length. Biopsies were taken with a cold forceps for histology. Verification of patient identification for the specimen was done. Estimated blood loss was minimal. Multiple medium hyperplastic polyps with no stigmata of recent bleeding were found in the gastric fundus and in the gastric body. No gross lesions were noted in the duodenal bulb. Impression: - Esophageal mucosal changes secondary to established short-segment Stauffer's disease. Biopsied. - Multiple gastric polyps. - No gross lesions in the duodenal bulb. Recommendation: - Discharge patient to home. - Resume previous diet. - Continue present medications. - Await pathology results. Procedure Code(s): --- Professional --- 14223, Esophagogastroduodenoscopy, flexible, transoral; with biopsy, single or multiple CPT copyright 2021 [employer]. All rights reserved. The codes documented in this report are preliminary and upon arts administrator or manager review may be revised to meet current compliance requirements. Brant Langley DO 10/26/2024 3:10:29 PM This report has been signed electronically. Number of Addenda: 0 Note Initiated On: 10/26/2024 2:48 PM
--- NOTE | 2024-10-26 15:11 | OP.CCLET_ITS ---
10/26/2024 Joseph Smyth MD [address] [place] [address] [place] [address] Re : Upper GI endoscopy procedure for Cathie Escudero Dear Dr. Smyth This procedure was performed on Saturday, October 26, 2024. My impressions and recommendations are as follows: Impressions : - Esophageal mucosal changes secondary to established short-segment Stauffer's disease. Biopsied. - Multiple gastric polyps. - No gross lesions in the duodenal bulb. Recommendations : - Discharge patient to home. - Resume previous diet. - Continue present medications. - Await pathology results. My findings are described in the full procedure note, which is enclosed. If I can be of further assistance, please feel free to contact me at . Sincerely, Brant Langley, 10/26/2024 3:10:29 PM This report has been signed electronically.
--- NOTE | 2024-10-26 15:14 | PCM.POST.ANE ---
Anesthesia: Postop Eval I Current Vital Signs Temperature: 97.7 F Pulse Rate: 83 Blood Pressure: 123/68 Respiratory Rate: 16 Pulse Ox: 94 Assessment Airway patent: Yes Spontaneous unlabored respirations: Yes nausea: No Vomiting: No Anesthesia Complication: No Fluid Hydration Crystalloid volume administer (ml): 200 Total IV fluid infused: 200 Progress Note Anesthesia document: Postop Eval 1 completed: Yes
--- NOTE | 2024-10-26 17:46 | POSTOPAN2_ITS ---
Anesthesia Postop Eval I Sum Postop Eval Completion status Anesthesia document: Postop Eval 1 completed: Yes Anesthesia Postop Eval I Summary Anesthesia Postop Eval I Summary: Anesthesia Postop Eval I: Assessment Summary Airway patent Yes 10/26/24 15:14 [employer]TNES Spontaneous unlabored Yes 10/26/24 15:14 [employer] [facility]TNES respirations Mental status nausea No 10/26/24 15:14 [employer]TNES Vomiting No 10/26/24 15:14 [employer]TNES Anesthesia Postop Eval I: Fluid Summary Crystalloid volume administer 200 10/26/24 15:14 [employer]TNES (ml) Colloids volume administered ( ml) Blood Product volume administered (ml) Total IV fluid infused 200 10/26/24 15:14 [employer] [facility]TNES Anesthesia Postop Eval I: Summary Notes Anesthesia Complication No 10/26/24 15:14 [employer]TNES Anesthesia Complication Comment: Post-operative progress note Anesthesia: Postop Eval II Evaluation Mental status: Awake and Calm Pain Level: 0 nausea: No Vomiting: No Complications Anesthesia Complication: No
--- NOTE | 2024-10-26 17:46 | PCM.POSTANE2 ---
Anesthesia Postop Eval I Sum Postop Eval Completion status Anesthesia document: Postop Eval 1 completed: Yes Anesthesia Postop Eval I Summary Anesthesia Postop Eval I Summary: Anesthesia Postop Eval I: Assessment Summary Airway patent Yes 10/26/24 15:14 PINION [email or web address].[email or web address] Spontaneous unlabored Yes 10/26/24 15:14 PINION [email or web address].[email or web address] respirations Mental status nausea No 10/26/24 15:14 PINION [email or web address].[email or web address] Vomiting No 10/26/24 15:14 PINION [email or web address].[email or web address] Anesthesia Postop Eval I: Fluid Summary Crystalloid volume administer 200 10/26/24 15:14 PINION [email or web address].TNES (ml) Colloids volume administered ( ml) Blood Product volume administered (ml) Total IV fluid infused 200 10/26/24 15:14 PINION [email or web address].[email or web address] Anesthesia Postop Eval I: Summary Notes Anesthesia Complication No 10/26/24 15:14 PINION [email or web address].TNES Anesthesia Complication Comment: Post-operative progress note Anesthesia: Postop Eval II Evaluation Mental status: Awake and Calm Pain Level: 0 nausea: No Vomiting: No Complications Anesthesia Complication: No
== END 2024-10-26 15:51 | disposition home or self-care (01) ==
LOC: EN 13:06 → AC 13:13
PROVIDERS: PCP Internal Medicine; Referring Provider Internal Medicine; Visit Provider Internal Medicine Gastroenterology
PROC: 0DJ08ZZ Inspection of Upper Intestinal Tract, Via Natural or Artificial Opening Endoscopic (ICD-10-PCS; CPT 43235; principal; 2024-10-26 14:10)
DX: K22.70 Barrett's esophagus without dysplasia (principal); Z87.891 Personal history of nicotine dependence; K31.7 Polyp of stomach and duodenum; Z79.899 Other long term (current) drug therapy; K21.9 Gastro-esophageal reflux disease without esophagitis; E03.9 Hypothyroidism, unspecified; E78.5 Hyperlipidemia, unspecified; Z79.890 Hormone replacement therapy; K59.01 Slow transit constipation; I10 Essential (primary) hypertension
CPT/HCPCS: 43239; 88305

== ENCOUNTER → 2024-11-25 | Outpatient (CLI) | payer MEDICARE, SELFPAY ==
--- OUTSIDE RECORDS SUMMARY | 2024-11-25 06:21 | XMS RPT_ITS | CCD ---
Author Organization [facility] Care Team Providers Care Field Pipe Lines Supervisor Name Role Phone Dr. Joseph Smyth Primary Care Provider [phone] Dr. Joseph Smyth Referring Provider [phone] Dr. Myles Plummer Attending Provider Dr. Joseph Smyth Attending Provider [phone] Delfino EMBROIDERY OPERATOR, EMBROIDERY OPERATOR-C Angi Attending Provider Dr. Joseph Smyth Primary Care Provider [phone] Dr. Joseph Smyth Referring Provider [phone] SALVADOR Ham Attending Provider Unavailab le Delfino EMBROIDERY OPERATOR, EMBROIDERY OPERATOR-C Angi Referring Provider Dr. Joseph Smyth Primary Care Provider [phone] Delfino EMBROIDERY OPERATOR, EMBROIDERY OPERATOR-C Angi Attending Provider Dr. Joseph Smtyh Referring Provider [phone] Dr. Joseph Smyth Attending Provider [phone])2 Dr. Joseph Smyth Primary Care Provider [phone] Dr. Joseph Smyth Attending Provider [phone] Dr. Joseph Smyth Referring Provider [phone] Delfino EMBROIDERY OPERATOR, EMBROIDERY OPERATOR-C Angi Attending Provider Delfino EMBROIDERY OPERATOR, EMBROIDERY OPERATOR-C Angi Referring Provider Dr. Myles Plummer Attending Provider Dr. Myles Plummer Referring Provider Dr. Joseph Smyth Primary Care Provider [phone] Libra, Dr. Ruiz Attending Provider [phone] Libra, Dr. Ruiz Referring Provider [phone] SALVADOR Ham Attending Provider Dr. Joseph Judd Primary Care Provider [phone] Libra, Dr. Ruiz Attending Provider [phone] Libra, Dr. Ruiz Referring Provider [phone])2 Delfino EMBROIDERY OPERATOR, EMBROIDERY OPERATOR-C Angi Attending Provider Delfino EMBROIDERY OPERATOR, EMBROIDERY OPERATOR-C Angi Referring Provider Dr. Myles Plummer Attending Provider Dr. Myles Plummer Referring Provider SALVADOR Ham Attending Provider Unavailab Ly, Dr. Ruiz Primary Care Provider [phone] Libra, Dr. Ruiz Attending Provider [phone] Libra, Dr. Ruiz Referring Provider [phone])2 Slim EMBROIDERY OPERATOR, EMBROIDERY OPERATOR-C Sai Attending Provider [phone] Dr. Myles Plummer Attending Provider Korin, Dr. Guo Attending Provider Libra, Dr. Ruiz Primary Care Provider [phone] Libra, Dr. Ruiz Referring Provider [phone])2 Libra, Dr. Ruiz Attending Provider [phone])2 Libra, Dr. Ruiz Primary Care Provider [phone]) Libra, Dr. Ruiz Referring Provider [phone])2 Libra, Dr. Ruiz Primary Care Provider [phone] 0) Libra, Dr. Ruiz Attending Provider [phone])2 Dr. Joseph Smyth Referring Provider [phone])2 Dr. Brant Langley Attending Provider 1(330) Dr. Brant Langley Other Provider 1(330) Dr. Joseph Smyth Primary Care Provider 1(33 0) Dr. Joseph Smyth Referring Provider [phone])2 Dr. Joseph Smyth Attending Provider [phone])2 Delfino EMBROIDERY OPERATOR, EMBROIDERY OPERATOR-C Angi Attending Provider Dr. Joseph Smyth Primary Care Provider [phone] [phone]) Dr. Joseph Smyth Referring Provider [phone])2 Dr. Brant Langley Attending Provider [phone]) Libra MARTINI, Joseph Mckeedicta Primary Care Prov ider Friend Brant MCKENZIE Unavailable [phone] POOLE, AUTUMN A Attending Unavailable OLEGHE, EFEWONGBE PACO Primary Care Unav ailable OLEGHE, EFEWONGBE PACO Primary Care Unav ailable POOLE, AUTUMN A Referring Unavailable OLEGHE, EFEWONGBE PACO Primary Care Unav ailable POOLE, AUTUMN A Attending Unavailable OLEGHE, EFEWONGBE PACO Primary Care Unav ailable Libra MARTINI, Dr. Ruiz Primary Care Provider Dr. Joseph Smyth MD Attending Provider [phone] Dr. Joseph Smyth MD Referring Provider 1(33 [phone]) Dr. Brant Langley DO Attending Provider Dr. Brant Langley DO Other Provider [phone] Brant Langley Attending Unavailable Oleghe, Efewongbe Primary Care Unavailable Oleghe, Efewongbe Referring Unavailable Oleghe, Efewongbe Attending Unavailable Oleghe, Efewongbe Primary Care Unavailable Oleghe, Efewongbe Referring Unavailable Friend, Brant Attending Unavailable Oleghe, Efewongbe Primary Care Unavailable Oleghe, Efewongbe Referring Unavailable Friend, Brant Attending Unavailable Friend, Brant Consulting Unavailable Oleghe, Efewongbe Primary Care Unavailable Oleghe, Efewongbe Referring Unavailable Friend, Brant Attending Unavailable Oleghe, Efewongbe Primary Care Unavailable Oleghe, Efewongbe Referring Unavailable Oleghe, Efewongbe Primary Care Unavailable Oleghe, Efewongbe Referring Unavailable Oleghe, Efewongbe Attending Unavailable Oleghe, Efewongbe Primary Care Unavailable Oleghe, Efewongbe Referring Unavailable Ferullo Katelynn Attending Unavailable Oleghe, Efewongbe Attending Unavailable Oleghe, Efewongbe Referring Unavailable Oleghe, Efewongbe Primary Care Unavailable Oleghe, Efewongbe Primary Care Unavailable Angi Saleh NP Attending Unavailable Oleghe OLS, Efewongbe Referring Unavailabl e Oleghe, Efewongbe Attending Unavailable Oleghe, Efewongbe Referring Unavailable Oleghe, Efewongbe Primary Care Unavailable Oleghe, Efewongbe Attending Unavailable Oleghe, Efewongbe Primary Care Unavailable Oleghe, Efewongbe Referring Unavailable Oleghe, Efewongbe Attending Unavailable Oleghe, Efewongbe Primary Care Unavailable Oleghe, Efewongbe Referring Unavailable Ferullo Katelynn Referring Unavailable FerulloKatelynn Attending Unavailable Oleghe, Efewongbe Primary Care Unavailable Alina Cates Referring Unavailable PitAlina hager Attending Unavailable Oleghe, Efewongbe Primary Care Unavailable Oleghe, Efewongbe Attending Unavailable Oleghe, Efewongbe Primary Care Unavailable Oleghe, Efewongbe Referring Unavailable Oleghe, Efewongbe Attending Unavailable Oleghe, Efewongbe Primary Care Unavailable Allergies Allergy Classification Reported Allergen(s) Allergy Type Date of Onset Reaction(s) Facility (20 sources) Ketoprofen; Translations: [KETOPROFEN] Drug Allergy 09-22-19 22 Nausea/vomitin g [facility] (20 sources) Pravastatin; Translations: [PRAVASTATIN] Drug Allergy 09-22-19 22 Nausea/vomitin g [facility] (5 sources) hydroCHLOROthiazide Drug Allergy 04-30-20 23 Other [facility] Comment on above: FLU LIKE SYMPTOMS (5 sources) Triamterene Drug Allergy 04-30-20 23 Other [facility] Comment on above: FLU LIKE SYMPTOMS (4 sources) hydroCHLOROthiazide / Triamterene; Translations: [TRIAMTERENE-HYDROCHLO ROTHIAZID] Drug Allergy 08-19-19 24 Nausea/vomitin g [facility] (1 source) hydroCHLOROthiazide Drug Allergy 10-27-19 [facility] (1 source) Ketoprofen Drug Allergy 10-27-19 [facility] (1 source) Pravastatin Drug Allergy 10-27-19 [facility] (1 source) Triamterene Drug Allergy 10-27-19 [facility] Repository Medications Current Medications Medication Drug Class(es) Dates Sig (Normalized) Sig (Original) [id number] 200 actuat albuterol 0.09 mg/actuat metered dose inhaler (20 sources) beta2-Adrenergic Agonist Start: 11-01-2022 take 2 puff(s) by inhalation every four hours for wheezing albuterol 90 mcg/actuation inhaler Inhale 2 puffs every 4 hours if needed for wheezing. 11/01/2022 Active Start: 06-27-2021 take 1 puff(s) by in halation every six hours Albuterol Sulfate Active 2 - 3 PUFF INHALATION EVERY 6 HOURS 8.June 27, 2021 2:41pm Start: 05-22-2021 End: 06-27-2021 take 1 puff(s) by inhalation every six hours Albuterol Sulfate Discontinued 2 - 3 PUFF INHALATION EVERY 6 HOURS May 22, 2021 11:17am June 27, 2021 2:42pm Start: 05-14-2021 End: 05-22-2021 take 1 puff(s) by inhalation every six hours Albuterol Sulfate Discontinued 1 - 2 PUFF INHALATION EVERY 6 HOURS 8.May 14, 2021 10:03am May 22, 2021 11:18am Start: 11-06-2020 End: 05-10-2024 Albuterol Sulfate 90 mcg/act uation HFA aerosol inhaler Active 2 - 3 NMA INHALATION EVERY 6 HOURS as needed for shortness of breath or wheezing 8.May 10, 2024 3:00pm Start: 11-06-2020 End: 10-22-2022 take 1 puff(s) by inhalation every six hours Albuterol Sulfate Discontinued 2 - 3 PUFF INHALATION EVERY 6 HOURS 8.June 27, 2021 1:41pm April 15, 2022 10:13am Blood Pressure Test Kit-Larg e (20 sources) Start: 10-08-2021 Blood Pressure Test Kit-Large Active 0 .ROUTE .MEDSUPPLY 1 October 08, 2021 10:34am Check BP twice a day Start: 10-08-2021 End: 04-30-2023 Blood Pressure Test Kit-Larg e Discontinued 0 .ROUTE .MEDSUPPLY 1 October 07, 2021 11:00pm April 30, 2023 9:46am Check BP twice a day Start: 10-08-2021 Blood Pressure Test Kit-Large Active 0 .ROUTE .MEDSUPPLY October 07, 2021 11:00pm Check BP twice a day Start: 10-08-2021 Blood Pressure Test Kit-Large Active 0 .ROUTE .MEDSUPPLY 1 October 08, 2021 12:00am Check BP twice a day Budesonide-Formoterol (20 sources) Corticosteroid, beta2-Adrenergic Agonist Start: 04-30-2023 Budesonide-Formoterol (Symbicort) 160-4.5 mcg/actuation HFA aerosol inhaler Active 2 NMA INHALATION TWICE A DAY as needed for ASTHMA April 30, 2023 1:00am administer with spacer, rinse mouth after each use Start: 04-30-2023 take 1 puff(s) by mo [facility] twice daily Budesonide-Formoterol (Symbicort) 160-4.5 mcg/actuation HFA aerosol inhaler Active 2 PUFF INHALATION TWICE A DAY April 30, 2023 12:00am administer with spacer, rinse mouth after each use Start: 06-26-2022 End: 04-30-2023 Budesonide-Formoterol (Symbi ambar) 160-4.5 mcg/actuation HFA aerosol inhaler Discontinued 2 NMA INHALATION TWICE A DAY 3 June 26, 2022 10:02am April 30, 2023 10:46am administer with spacer, rinse mouth after each use Start: 06-26-2022 End: 04-30-2023 take 1 puff(s) by mouth twice daily Budesonide-Formoterol (Symbicort) 160-4.5 mcg/actuation HFA aerosol inhaler Discontinued 2 PUFF INHALATION TWICE A DAY 3 June 26, 2022 9:02am April 30, 2023 9:46am administer with spacer, rinse mouth after each use Start: 06-26-2022 take 1 puff(s) by [facility] twice daily Budesonide-Formoterol (Symbicort) 160-4.5 mcg/actuation HFA aerosol inhaler Active 2 PUFF INHALATION TWICE A DAY 3 June 26, 2022 9:02am administer with spacer, rinse mouth after each use Start: 06-26-2022 take 1 puff(s) by [facility] twice daily Budesonide-Formoterol (Symbicort) 160-4.5 mcg/actuation HFA aerosol inhaler Active 2 PUFF INHALATION TWICE A DAY 3 June 26, 2022 10:02am administer with spacer, rinse mouth after each use Start: 06-24-2022 End: 06-26-2022 Budesonide-Formoterol (Symbi ambar) 160-4.5 mcg/actuation HFA aerosol inhaler Discontinued 2 NMA INHALATION TWICE A DAY 3 June 24, 2022 1:20pm June 26, 2022 10:02am administer with spacer, rinse mouth after each use Start: 06-24-2022 End: 06-26-2022 take 1 puff(s) by mouth twice daily Budesonide-Formoterol (Symbicort) 160-4.5 mcg/actuation HFA aerosol inhaler Discontinued 2 PUFF INHALATION TWICE A DAY 3 June 24, 2022 12:20pm June 26, 2022 9:02am administer with spacer, rinse mouth after each use Start: 06-24-2022 End: 06-26-2022 take 1 puff(s) by mouth twice daily Budesonide-Formoterol (Symbicort) 160-4.5 mcg/actuation HFA aerosol inhaler Discontinued 2 PUFF INHALATION TWICE A DAY 3 June 24, 2022 1:20pm June 26, 2022 10:02am administer with spacer, rinse mouth after each use Start: 04-15-2022 End: 06-24-2022 Budesonide-Formoterol (Symbi ambar) 160-4.5 mcg/actuation HFA aerosol inhaler Discontinued 2 NMA INHALATION TWICE A DAY 3 April 15, 2022 11:14am June 24, 2022 1:23pm administer with spacer, rinse mouth after each use Start: 04-15-2022 End: 06-24-2022 take 1 puff(s) by mouth twice daily Budesonide-Formoterol (Symbicort) 160-4.5 mcg/actuation HFA aerosol inhaler Discontinued 2 PUFF INHALATION TWICE A DAY 3 April 15, 2022 10:14am June 24, 2022 12:23pm administer with spacer, rinse mouth after each use Start: 04-15-2022 End: 06-24-2022 take 1 puff(s) by mouth twice daily Budesonide-Formoterol (Symbicort) 160-4.5 mcg/actuation HFA aerosol inhaler Discontinued 2 PUFF INHALATION TWICE A DAY 3 April 15, 2022 11:14am June 24, 2022 1:23pm administer with spacer, rinse mouth after each use Start: 04-15-2022 take 1 puff(s) by mo [facility] twice daily Budesonide-Formoterol (Symbicort) 160-4.5 mcg/actuation HFA aerosol inhaler Active 2 PUFF INHALATION TWICE A DAY 3 April 15, 2022 10:14am administer with spacer, rinse mouth after each use Start: 09-11-2021 End: 04-15-2022 Budesonide-Formoterol (Symbi ambar) 160-4.5 mcg/actuation HFA aerosol inhaler Discontinued 2 NMA INHALATION TWICE A DAY 3 September 11, 2021 9:25am April 15, 2022 11:14am administer with spacer, rinse mouth after each use Start: 09-11-2021 End: 04-15-2022 take 1 puff(s) by mouth twice daily Budesonide-Formoterol (Symbicort) 160-4.5 mcg/actuation HFA aerosol inhaler Discontinued 2 PUFF INHALATION TWICE A DAY 3 September 11, 2021 9:25am April 15, 2022 11:14am administer with spacer, rinse mouth after each use Start: 09-11-2021 End: 04-15-2022 take 1 puff(s) by mouth twice daily Budesonide-Formoterol (Symbicort) 160-4.5 mcg/actuation HFA aerosol inhaler Discontinued 2 PUFF INHALATION TWICE A DAY 3 September 11, 2021 8:25am April 15, 2022 10:14am administer with spacer, rinse mouth after each use Start: 09-11-2021 take 1 puff(s) by mo ut twice daily Budesonide-Formoterol (Symbicort) 160-4.5 mcg/actuation HFA aerosol inhaler Active 2 PUFF INHALATION TWICE A DAY 3 September 11, 2021 9:25am administer with spacer, rinse mouth after each use Start: 06-27-2021 End: 09-11-2021 take 1 puff(s) by mouth twice daily Budesonide-Formoterol (Symbicort) 160-4.5 mcg/actuation HFA aerosol inhaler Discontinued 2 PUFF INHALATION TWICE A DAY 1 June 27, 2021 9:33am September 11, 2021 9:27am administer with spacer, rinse mouth after each use Start: 06-27-2021 End: 09-11-2021 Budesonide-Formoterol (Symbi ambar) 160-4.5 mcg/actuation HFA aerosol inhaler Discontinued 2 NMA INHALATION TWICE A DAY 1 June 27, 2021 1:00am September 11, 2021 9:27am administer with spacer, rinse mouth after each use Start: 06-27-2021 End: 09-11-2021 take 1 puff(s) by mouth twice daily Budesonide-Formoterol (Symbicort) 160-4.5 mcg/actuation HFA aerosol inhaler Discontinued 2 PUFF INHALATION TWICE A DAY June 27, 2021 12:00am September 11, 2021 8:27am administer with spacer, rinse mouth after each use Start: 06-27-2021 End: 09-11-2021 take 1 puff(s) by mouth twice daily Budesonide-Formoterol (Symbicort) 160-4.5 mcg/actuation HFA aerosol inhaler Discontinued 2 PUFF INHALATION TWICE A DAY June 27, 2021 1:00am September 11, 2021 9:27am administer with spacer, rinse mouth after each use Start: 05-22-2021 End: 06-27-2021 Budesonide-Formoterol (Symbi ambar) 80-4.5 mcg/actuation HFA aerosol inhaler Discontinued 2 NMA INHALATION TWICE A DAY 10.2 May 22, 2021 1:00am June 27, 2021 9:33am Start: 05-22-2021 End: 06-27-2021 take 1 puff(s) by inhalation twice daily Budesonide-Formoterol (Symbicort) 80-4.5 mcg/actuation HFA aerosol inhaler Discontinued 2 PUFF INHALATION TWICE A DAY 10.2 May 22, 2021 12:00am June 27, 2021 8:33am calcium carbonate 1250 mg chewable tablet (20 sources) Start: 06-22-2020 take 1 tablet by mouth once daily Calcium Carbonate 500 mg calcium (1,250 mg) tablet,chewable Active 1000 mg PO DAILY June 22, 2020 10:39am Start: 08-13-2018 End: 06-22-2020 take 1 tablet by mouth once daily Calcium Carbonate 500 MG tablet,chewable Discontinued 500 mg PO DAILY August 13, 2018 1:00am June 22, 2020 10:42am cholecalciferol 0.025 mg chewable tablet (20 sources) Vitamin D Start: 06-22-2020 take 1 tablet by mouth once daily Cholecalciferol (Vitamin D3) 25 mcg (1,000 unit) tablet,chewable Active 2000 U PO DAILY June 22, 2020 10:41am Start: 08-13-2018 End: 06-22-2020 take 3 tablets by mouth once daily Cholecalciferol (Vitamin D3) 1,000 UNIT tablet,chewable Discontinued 3000 U PO DAILY August 13, 2018 1:00am June 22, 2020 10:42am Start: 08-13-2018 End: 06-22-2020 take 3000 [IU] by mouth once daily Cholecalciferol (Vitamin D3) Discontinued 3000 UNIT PO DAILY August 13, 2018 12:00am June 22, 2020 9:42am take 1 tablet by melia once daily cholecalciferol (Vitamin D3) 5,000 Units tablet Take 1 tablet (5,000 Units) by mouth once daily. Active Compress.Stocking,Knee,Reg,L rg misc (1 source) Start: 11-02-2023 Compress.Stocking,Knee,Reg,L rg misc Active 0 .MEDSUPPLY 2 November 02, 2023 12:00am wear daily for venous insufficiency 20-30 mmHg DAILY MULTI-VITAMIN ORAL (3 sources) take 1 tablet by mouth once daily DAILY MULTI-VITAMIN ORAL Take 1 tablet by mouth once daily. Active take 1 tablet by mouth once clayton y DAILY MULTI-VITAMIN ORAL Take 1 tablet by mouth once daily. 0 Active ferrous gluconate 324 mg oral tablet (20 sources) Start: 12-05-2020 take 324 mg by mouth once daily Ferrous Gluconate Active 324 MG PO DAILY December 05, 2020 12:00am ferrous sulfate 325 mg oral tablet (20 sources) Start: 10-24-2024 take 1 tablet by mouth once daily Ferrous Sulfate (Ferosul) 325 mg (65 mg iron) tablet Active 325 mg PO DAILY October 24, 2024 12:00am Start: 08-13-2018 End: 05-18-2020 take 1 tablet by mouth once daily Ferrous Sulfate 325 MG tablet Discontinued 325 mg PO DAILY August 13, 2018 1:00am May 18, 2020 2:00pm FLUoxetine 40 mg oral capsule (20 sources) Serotonin Reuptake Inhibitor Start: 10-21-2024 Fluoxetine 40 mg capsule Active 40 mg PO DAILY October 21, 2024 1:18pm Take with 20 mg capsule Start: 10-21-2024 take 2 capsules by m outh once daily, then take 3 capsules by mouth once daily Fluoxetine 20 mg capsule Active 20 mg PO daily October 21, 2024 1:17pm Take with 40 mg capsule for a total of 60 mg daily. Start: 09-23-2024 End: 10-21-2024 take 10 mg by mouth once daily Fluoxetine 40 mg capsul e Discontinued 40 mg PO DAILY September 23, 2024 8:55am October 21, 2024 1:18pm Take with 10 mg capsule Start: 09-23-2024 End: 10-21-2024 take 1 capsule by mouth twice daily in the morning Fluoxetine 10 mg capsule Discontinued 10 mg PO TWICE A DAY September 23, 2024 12:00am October 21, 2024 1:18pm administer in the morning and at noon/midday Start: 07-08-2021 End: 09-23-2024 take 1 capsule by mouth once daily Fluoxetine 40 mg capsule Discontinued 40 mg PO DAILY August 22, 2024 12:45pm September 23, 2024 8:56am Start: 12-05-2020 End: 07-08-2021 take 2 capsules by mouth once daily Fluoxetine 20 mg capsule Discontinued 40 mg PO DAILY 180 April 26, 2021 10:41am July 08, 2021 10:33am Start: 12-05-2020 End: 07-08-2021 take 40 mg by mouth once daily Fluoxetine Discontinued 40 MG PO DAILY 180 April 26, 2021 9:41am July 08, 2021 9:33am Start: 06-25-2020 End: 12-19-2020 take 1 capsule by mouth twice daily in the morning Fluoxetine 20 mg capsule Discontinued 20 mg PO TWICE A DAY 60 November 13, 2020 8:55am December 19, 2020 2:48pm TAKE 1 CAPSULE TWICE DAILY IN THE MORNING AND AT NOON/MIDDAY levothyroxine sodium 0.175 mg oral tablet (20 sources) l-Thyroxine Start: 10-03-2022 End: 08-22-2024 take 1 tablet by mouth once daily Levothyroxine 175 mcg tablet Active 175 ug PO DAILY August 22, 2024 12:36pm Start: 06-25-2020 End: 10-03-2022 take 1 tablet by mouth once daily Levothyroxine 150 mcg tablet Discontinued 150 ug PO DAILY June 24, 2022 11:57am October 03, 2022 1:06pm Start: 06-15-2013 End: 06-25-2020 take 3 tablets by mouth once daily Levothyroxine 50 MCG tablet Discontinued 150 ug PO DAILY June 15, 2013 1:00am June 25, 2020 11:03am Start: 06-15-2013 End: 06-25-2020 take 150 ug by mouth once daily Levothyroxine Disconti nued 150 MCG PO DAILY June 15, 2013 12:00am June 25, 2020 10:03am mecobalamin 5 mg disintegrating oral tablet (20 sources) Start: 12-05-2020 take 1 tablet by mouth once daily Mecobalamin (Vitamin B12) 5,000 mcg Tablet,Disintegrating Active 5000 ug PO DAILY December 05, 2020 12:00am pramipexole dihydrochloride 0.25 mg oral tablet (20 sources) Nonergot Dopamine Agonist Start: 08-13-2018 End: 10-10-2024 take 0.25-0.75 mg by mouth at bedtime Pramipexole 0.25 mg tablet Active 0.25 - 0.75 mg PO AT BEDTIME October 10, 2024 4:13pm rosuvastatin calcium 40 mg oral tablet (20 sources) HMG-CoA Reductase Inhibitor Start: 06-25-2020 End: 07-28-2024 take 1 tablet by mouth once daily Rosuvastatin (Crestor) 40 mg tablet Active 40 mg PO DAILY July 28, 2024 3:02pm Start: 06-15-2013 End: 06-25-2020 take 4 tablets by mouth once daily Rosuvastatin 10 MG tablet Discontinued 40 mg PO DAILY June 15, 2013 1:00am June 25, 2020 11:05am Start: 06-15-2013 End: 06-25-2020 take 40 mg by mouth once daily Rosuvastatin Discontinu ed 40 MG PO DAILY June 15, 2013 12:00am June 25, 2020 10:05am 60 actuat tiotropium 0.90627 mg/actuat inhalation spray (20 sources) Anticholinergic Start: 11-06-2022 End: 02-27-2023 take 1.25 ug by inhalation once daily as needed Tiotropium Sinclair (Spiriva Respimat) 1.25 mcg/actuation mist Active 2 NMA INHALATION DAILY as needed for SOB February 27, 2023 7:54am Start: 11-06-2022 End: 02-27-2023 take 1 puff(s) by inhalation once daily Tiotropium Sinclair (Spiriva Respimat) 1.25 mcg/actuation mist Active 2 PUFF INHALATION DAILY February 27, 2023 6:54am traZODone hydrochloride 50 mg oral tablet (20 sources) Serotonin Reuptake Inhibitor Start: 10-24-2024 Trazodone 50 mg tablet Active 0 PO AT BEDTIME as needed for Sleep October 24, 2024 12:00am 50-150 orally at bedtime PRN; Start: 09-04-2021 End: 10-24-2024 take 3 tablets by mouth at bedtime as needed for sleep Trazodone 50 mg tablet Discontinued 150 mg PO AT BEDTIME as needed for Sleep 240 90 July 04, 2024 12:44pm October 24, 2024 1:49pm Start: 09-04-2021 End: 04-22-2023 take 150 mg by mouth at bedtime Trazodone Discontinued 150 MG PO AT BEDTIME 240 90 June 24, 2022 11:41am April 22, 2023 9:57pm Start: 08-13-2018 End: 09-04-2021 take 50-150 mg by mouth at bedtime as needed for sleep Trazodone 50 mg tablet Discontinued 50 - 150 mg PO AT BEDTIME as needed for Sleep June 11, 2021 5:16pm September 04, 2021 8:21am Start: 08-13-2018 End: 09-04-2021 take 50-150 mg by mouth at bedtime Trazodone Discontinued 50 - 150 MG PO AT BEDTIME June 11, 2021 4:16pm September 04, 2021 7:21am triamcinolone acetonide 1 mg/ml topical cream (15 sources) Corticosteroid Start: 08-29-2022 Triamcinolone Acetonide 0.1 % cream Active 1 NMA TOPICAL TWICE A DAY as needed for rash 453.6 August 29, 2022 12:00am zolpidem tartrate 5 mg oral tablet (20 sources) gamma-Aminobutyric Acid-ergic Agonist Start: 02-27-2023 End: 09-23-2024 take 1 tablet by mouth at bedtime as needed Zolpidem 5 mg tablet Active 5 mg PO AT BEDTIME as needed for insomnia September 23, 2024 1:03pm Completed/Discontinued Medications Medication Drug Class(es) Dates Sig (Normalized) Sig (Original) acetaminophen 325 mg / HYDROcodone bitartrate 2.5 mg oral tablet (20 sources) Opioid Agonist Start: 10-30-2023 End: 02-01-2024 Hydrocodone-Acetami nophen 2.5-325 mg tablet Discontinued 1 {tbl} PO THREE TIMES A DAY as needed October 30, 2023 12:00am February 01, 2024 9:19am Start: 08-13-2018 End: 08-15-2018 Hydrocodone-Acetaminophen 1 TABLET tablet Discontinued 1 {tbl} PO EVERY 4 HOURS NEEDED as needed for Pain 10 2 August 13, 2018 1:00am August 14, 2018 1:00am August 15, 2018 1:08am Start: 08-13-2018 End: 08-15-2018 take 1 tablet by mouth every four hours as needed Hydrocodone-Acetaminophen Discontinued 1 TABLET PO EVERY 4 HOURS NEEDED 10 August 13, 2018 12:00am August 15, 2018 12:08am amoxicillin 875 mg / clavulanate 125 mg oral tablet (20 sources) Penicillin-class Antibacterial Start: 05-16-2022 End: 08-28-2022 Amoxicillin-Pot Clavulanate 875-125 mg tablet Discontinued 1 {tbl} PO TWICE A DAY May 16, 2022 1:00am August 28, 2022 3:37pm Start: 05-16-2022 End: 08-28-2022 take 1 tablet by mouth twice daily Amoxicillin-Pot Clavulanate Discontinued 1 TABLET PO TWICE A DAY May 16, 2022 12:00am August 28, 2022 2:37pm Start: 02-05-2022 End: 02-25-2022 Amoxicillin-Pot Clavulanate 875-125 mg tablet Discontinued 1 {tbl} PO TWICE A DAY February 05, 2022 12:00am February 25, 2022 2:31pm Start: 02-05-2022 End: 02-25-2022 take 1 tablet by mouth twice daily Amoxicillin-Pot Clavulanate Discontinued 1 TABLET PO TWICE A DAY February 04, 2022 11:00pm February 25, 2022 1:31pm Start: 11-26-2020 End: 12-17-2020 Amoxicillin-Pot Clavulanate 875-125 mg tablet Discontinued 1 {tbl} PO TWICE A DAY 42 November 26, 2020 12:00am December 16, 2020 12:00am December 17, 2020 12:01am Start: 11-26-2020 End: 12-17-2020 take 1 tablet by mouth twice daily Amoxicillin-Pot Clavulanate Discontinued 1 TABLET PO TWICE A DAY 42 November 25, 2020 11:00pm December 16, 2020 11:01pm baclofen 10 mg oral tablet (20 sources) gamma-Aminobutyric Acid-ergic [facility]onist Start: 01-21-2022 End: 02-25-2022 take 1 tablet by mouth three times daily as needed for muscle spasms Baclofen 10 mg tablet Discontinued 10 mg PO THREE TIMES A DAY as needed for muscle spasm January 21, 2022 12:00am February 25, 2022 2:31pm benzonatate 200 mg oral capsule (16 sources) Non-narcotic Antitussive Start: 05-16-2022 End: 08-28-2022 take 1 capsule by mouth three times daily as needed for cough Benzonatate 200 mg capsule Discontinued 200 mg PO THREE TIMES A DAY as needed for cough May 16, 2022 1:00am August 28, 2022 3:37pm Blood Pressure Test Kit-Large kit (1 source) Start: 10-08-2021 End: 04-30-2023 Blood Pressure Test Kit-Large kit Discontinued 0 .ROUTE .MEDSUPPLY October 08, 2021 12:00am April 30, 2023 10:46am Check BP twice a day cephalexin 500 mg oral capsule (20 sources) Cephalosporin Antibacterial Start: 10-01-2022 End: 10-03-2022 take 1 capsule by mouth every eight hours Cephalexin 500 mg capsule Discontinued 500 mg PO Q8H October 01, 2022 12:00am October 03, 2022 11:06am Start: 04-03-2022 End: 05-16-2022 take 1 capsule by mouth three times daily Cephalexin 500 mg capsule Discontinued 500 mg PO THREE TIMES A DAY 13 04April 03, 2022 12:00am May 16, 2022 9:49am cetirizine hydrochloride 10 mg oral capsule (20 sources) Histamine-1 Receptor Antagonist Start: 09-11-2021 End: 05-05-2023 take 1 capsule by mouth once daily Cetirizine 10 mg capsule Discontinued 10 mg PO DAILY December 12, 2022 10:08am May 05, 2023 2:58pm ciprofloxacin 500 mg oral tablet (20 sources) Quinolone Antimicrobial Start: 10-03-2022 End: 11-26-2022 take 1 tablet by mouth twice daily Ciprofloxacin Hcl 500 mg tablet Discontinued 500 mg PO TWICE A DAY October 03, 2022 12:00am November 26, 2022 11:28am Start: 02-09-2014 End: 02-12-2014 take 1 tablet by mouth twice daily Ciprofloxacin Hcl 500 MG tablet Discontinued 500 mg PO TWICE A DAY February 09, 2014 12:00am February 12, 2014 3:36pm dicyclomine hydrochloride 20 mg oral tablet (20 sources) Anticholinergic Start: 01-14-2019 End: 06-22-2020 take 1 tablet by mouth twice daily Dicyclomine 20 mg tablet Discontinued 20 mg PO TWICE A DAY January 14, 2019 12:00am June 22, 2020 10:42am doxepin hydrochloride 25 mg oral capsule (20 sources) Tricyclic Antidepressant Start: 08-13-2018 End: 05-18-2020 take 25-50 mg by mouth once daily Doxepin 25 MG capsule Discontinued 25 - 50 mg PO DAILY August 13, 2018 1:00am May 18, 2020 2:06pm fexofenadine hydrochloride 180 mg oral tablet (20 sources) Histamine-1 Receptor Antagonist Start: 01-14-2019 End: 05-18-2020 take 1 tablet by mouth once daily as needed Fexofenadine 180 mg tablet Discontinued 180 mg PO DAILY as needed for Allergies January 14, 2019 12:00am May 18, 2020 2:01pm fluconazole 150 mg oral tablet (20 sources) Azole Antifungal Start: 11-26-2020 End: 12-05-2020 Fluconazole 150 mg tablet Discontinued 150 mg PO Every 3 Days November 26, 2020 12:00am December 05, 2020 5:38pm may repeat second dose 72 hrs after first dose if symptoms persist fluticasone propionate 0.05 mg/actuat metered dose nasal spray (20 sources) Corticosteroid Start: 06-27-2021 End: 05-05-2023 Fluticasone Propionate 50 mcg/actuation spray,suspension Discontinued 2 NMA INTRANASAL DAILY June 24, 2022 1:23pm May 05, 2023 2:58pm Start: 06-27-2021 End: 05-05-2023 Fluticasone Propionate Disco ntinued 2 SPRAY INTRANASAL DAILY June 24, 2022 12:23pm May 05, 2023 1:58pm hydroCHLOROthiazide 25 mg oral tablet (20 sources) Thiazide Diuretic Start: 04-24-2023 End: 05-05-2023 take 1 tablet by mouth once daily Hydrochlorothiazide 25 mg tablet Discontinued 25 mg PO DAILY April 24, 2023 1:00am May 05, 2023 2:59pm Start: 10-22-2021 End: 12-03-2021 take 1 tablet by mouth once daily in the morning Hydrochlorothiazide 12.5 mg tablet Discontinued 12.5 mg PO EVERY MORNING 60 October 22, 2021 12:00am December 03, 2021 9:18am hydroCHLOROthiazide 25 mg / triamterene 37.5 mg oral tablet (20 sources) Potassium-sparing Diuretic, Thiazide Diuretic Start: 12-03-2021 End: 04-24-2023 Triamterene-Hydrochlorothiaz id 37.5-25 mg tablet Discontinued 1 {tbl} PO EVERY MORNING June 24, 2022 11:57am April 24, 2023 10:14am Start: 12-03-2021 End: 04-24-2023 take 1 tablet by mouth once daily in the morning Triamterene-Hydrochlorothiazid Discontin ued 1 TABLET PO EVERY MORNING June 24, 2022 10:57am April 24, 2023 9:14am Ipratropium (20 sources) Anticholinergic Start: 11-06-2022 End: 05-05-2023 Ipratropium Sinclair Disconti nued 2 SPRAY INTRANASAL 2 to 3 times per day November 05, 2022 11:00pm May 05, 2023 1:59pm administer into each nostril Start: 11-06-2022 Ipratropium Br omide Active 2 SPRAY INTRANASAL 2 to 3 times per day November 05, 2022 11:00pm administer into each nostril Start: 11-06-2022 Ipratropium Br omide Active 2 SPRAY INTRANASAL 2 to 3 times per day November 06, 2022 12:00am administer into each nostril Start: 01-14-2019 End: 05-18-2020 Ipratropium Sinclair 0.03 % s pray,non-aerosol Discontinued 2 NMA INTRANASAL TWICE A DAY as needed for Allergies January 14, 2019 12:00am May 18, 2020 2:00pm Start: 01-14-2019 End: 05-18-2020 Ipratropium Sinclair Disconti nued 2 SPRAY INTRANASAL TWICE A DAY January 13, 2019 11:00pm May 18, 2020 1:00pm Ipratropium Sinclair 21 mcg (0.03 %) spray,non-aerosol (1 source) Start: 11-06-2022 End: 05-05-2023 Ipratropium Sinclair 21 mcg (0.03 %) spray,non-aerosol Discontinued 2 NMA INTRANASAL 2 to 3 times per day as needed for allergy symptoms November 06, 2022 12:00am May 05, 2023 2:59pm administer into each nostril lubiprostone 0.008 mg oral capsule (9 sources) Chloride Channel Activator Start: 12-29-2022 End: 02-27-2023 take 1 capsule by mouth once daily Lubiprostone (Amitiza) 8 mcg capsule Discontinued 8 ug PO DAILY December 29, 2022 12:00am February 27, 2023 7:53am melatonin 1 mg oral tablet (20 sources) Start: 01-14-2019 End: 06-22-2020 take 1 tablet by mouth at bedtime as needed for sleep Melatonin 1 mg tablet Discontinued 1 mg PO BEDTIME as needed for Sleep January 14, 2019 12:00am June 22, 2020 10:41am meloxicam 15 mg oral tablet (20 sources) Nonsteroidal Anti-inflammatory Drug Start: 05-15-2021 End: 12-03-2021 take 1 tablet by mouth once daily as needed for pain Meloxicam 15 mg tablet Discontinued 15 mg PO DAILY as needed for pain October 04, 2021 7:48am December 03, 2021 9:03am metroNIDAZOLE 500 mg oral tablet (20 sources) Nitroimidazole Antimicrobial Start: 02-09-2014 End: 02-12-2014 take 1 tablet by mouth every eight hours Metronidazole 500 MG tablet Discontinued 500 mg PO EVERY 8 HOURS February 09, 2014 12:00am February 12, 2014 3:36pm montelukast 10 mg oral tablet (20 sources) Leukotriene Receptor Antagonist Start: 11-26-2020 End: 10-30-2023 take 1 tablet by mouth at bedtime as needed Montelukast (Singulair) 10 mg tablet Discontinued 10 mg PO AT BEDTIME NEEDED as needed for ALLERGIES December 05, 2020 5:38pm September 11, 2021 9:27am Start: 01-14-2019 End: 05-18-2020 take 1 tablet by mouth once daily in the evening as needed Montelukast 10 mg tablet Discontinued 10 mg PO EVERY EVENING as needed for Allergies January 14, 2019 12:00am May 18, 2020 2:00pm nabumetone 500 mg oral tablet (20 sources) Nonsteroidal Anti-inflammatory Drug Start: 12-03-2021 End: 02-25-2022 Nabumetone 500 mg tablet Discontinued 500 mg PO .PRN January 21, 2022 8:17am February 25, 2022 2:31pm Nirmatrelvir-Ritona vir (Paxlovid) 300 mg (150 mg x 2)-100 mg tablets,dose pack (4 sources) Start: 06-13-2023 End: 08-10-2023 Nirmatrelvir-Ritonav ir (Paxlovid) 300 mg (150 mg x 2)-100 mg tablets,dose pack Discontinued 0 PO .COMPLEX June 13, 2023 1:00am August 10, 2023 11:00am take TWO 150 mg tablets of nirmatrelvir with ONE 100 mg tablet of ritonavir twice daily for 5 days PO Start: 06-13-2023 Nirmatrelvir-R itonavir (Paxlovid) 300 mg (150 mg x 2)-100 mg tablets,dose pack Active 0 PO .COMPLEX June 13, 2023 12:00am take TWO 150 mg tablets of nirmatrelvir with ONE 100 mg tablet of ritonavir twice daily for 5 days PO nortriptyline 25 mg oral capsule (20 sources) Tricyclic Antidepressant Start: 06-25-2020 End: 06-25-2020 take 1 capsule by mouth twice daily Nortriptyline 25 mg capsule Discontinued 25 mg PO TWICE A DAY June 25, 2020 1:00am June 25, 2020 11:37am Start: 05-18-2020 End: 06-25-2020 take 1 capsule by mouth at bedtime Nortriptyline 10 mg capsule Discontinued 40 mg PO AT BEDTIME May 18, 2020 1:00am June 25, 2020 11:03am Start: 05-18-2020 End: 06-25-2020 take 40 mg by mouth at bedtime Nortriptyline Discontin ued 40 MG PO AT BEDTIME May 18, 2020 12:00am June 25, 2020 10:03am omeprazole 40 mg delayed release oral capsule (20 sources) Proton Pump Inhibitor Start: 08-28-2022 End: 08-22-2024 take 1 capsule by mouth once daily Omeprazole 40 mg capsule,delayed release(DR/EC) Discontinued 40 mg PO DAILY August 22, 2024 12:45pm August 22, 2024 12:46pm Start: 08-28-2022 End: 08-28-2022 Omeprazole 40 mg capsule,del ayed release(DR/EC) Discontinued 20 mg PO DAILY August 28, 2022 4:32pm August 28, 2022 4:36pm Start: 08-28-2022 End: 08-28-2022 take 20 mg by mouth once daily Omeprazole Discontinued 20 MG PO DAILY August 28, 2022 3:32pm August 28, 2022 3:36pm Start: 10-25-2021 End: 02-25-2022 Omeprazole 40 mg capsule,del ayed release(DR/EC) Discontinued 20 mg PO DAILY October 25, 2021 8:54am February 25, 2022 2:32pm Start: 10-25-2021 End: 02-25-2022 take 20 mg by mouth once daily Omeprazole Discontinued 20 MG PO DAILY October 25, 2021 7:54am February 25, 2022 1:32pm Start: 12-19-2020 End: 10-25-2021 take 1 capsule by mouth once daily Omeprazole 40 mg capsule,delayed release(DR/EC) Discontinued 40 mg PO DAILY December 19, 2020 4:01pm October 25, 2021 8:55am Start: 06-21-2009 End: 08-28-2022 take 1 capsule by mouth once daily Omeprazole 20 MG capsule Discontinued 20 mg PO DAILY February 09, 2014 12:00am December 19, 2020 4:01pm oseltamivir 75 mg oral capsule (20 sources) Neuraminidase Inhibitor Start: 06-15-2013 End: 06-16-2013 take 1 capsule by mouth twice daily Oseltamivir 75 MG capsule Discontinued 75 mg PO TWICE A DAY June 15, 2013 1:00am June 16, 2013 1:17pm phenazopyridine hydrochloride 200 mg oral tablet (18 sources) Start: 04-03-2022 End: 05-16-2022 take 1 tablet by mouth three times daily Phenazopyridine (Pyridium) 200 mg tablet Discontinued 200 mg PO THREE TIMES A DAY 6 2 April 03, 2022 12:00am May 16, 2022 9:50am potassium chloride 20 meq extended release oral tablet (20 sources) Start: 01-14-2022 End: 02-01-2024 take 1 tablet by mouth once daily Potassium Chloride 20 mEq tablet extended release Discontinued 20 meq PO DAILY October 14, 2022 12:29pm February 01, 2024 9:19am On Hold: Ordered predniSONE 20 mg oral tablet (20 sources) Start: 02-05-2022 End: 02-25-2022 take 3 tablets by mouth once daily at mealtime Prednisone 20 mg tablet Discontinued 60 mg PO daily February 05, 2022 12:00am February 25, 2022 2:33pm administer with food or milk Start: 02-05-2022 End: 02-25-2022 take 60 mg by mouth once daily at mealtime Prednisone Discontinued 60 MG PO daily February 04, 2022 11:00pm February 25, 2022 1:33pm administer with food or milk Start: 05-05-2021 End: 05-15-2021 take 3 tablets by mouth once daily Prednisone 20 MG tablet Discontinued 60 mg PO DAILY May 05, 2021 1:00am May 15, 2021 9:46am Start: 05-05-2021 End: 05-15-2021 take 60 mg by mouth once daily Prednisone Discontinued 60 MG PO DAILY May 05, 2021 12:00am May 15, 2021 8:46am Start: 12-22-2020 End: 02-06-2021 take 1 tablet by mouth once daily Prednisone 50 mg tablet Discontinued 50 mg PO DAILY December 22, 2020 12:00am February 06, 2021 9:52am Start: 11-26-2020 End: 12-05-2020 take 2 tablets by mouth once daily Prednisone 20 mg tablet Discontinued 40 mg PO DAILY November 26, 2020 12:00am December 05, 2020 1:38pm Start: 11-26-2020 End: 12-05-2020 take 40 mg by mouth once daily Prednisone Discontinued 40 MG PO DAILY November 25, 2020 11:00pm December 05, 2020 12:38pm psyllium 3400 mg powder for oral suspension (20 sources) Start: 02-12-2014 End: 01-14-2019 take 1 dose by mouth once daily as needed Psyllium Husk (Aspartame) 1 PACKET packet Discontinued 1 NMA PO DAILY as needed for Constipation August 13, 2018 11:30am January 14, 2019 7:36am Start: 02-12-2014 End: 01-14-2019 Psyllium Husk (Aspartame) Di scontinued 1 PACKET PO DAILY August 13, 2018 10:30am January 14, 2019 6:36am Problems Active Problems Problem Classification Problem Date Documented Da te Episodic/Chronic Abdominal pain (20 sources) Tenderness of epigastrium; Translations: [Epigastric abdominal tenderness] 12-05-2020 Episodic Allergic reactions (20 sources) Allergic condition; Translations: [Allergy, unspecified, initial encounter] 11-26-2022 Episodic Anxiety disorders (20 sources) Mixed anxiety and depressive disorder; Translations: [Other specified anxiety disorders] 02-05-2021 Chronic Asthma (20 sources) Exacerbation of asthma; Translations: [Unspecified asthma with (acute) exacerbation] Onset: 4 Chronic Comment on above: CONTROLLED WITH MEDS AND INHALERS Biliary tract disease (13 sources) Common bile duct calculus; Translations: [Calculus of bile duct without cholangitis or cholecystitis without obstruction] 04-23-2023 Episodic Diabetes mellitus without complication (19 sources) Hyperglycemia; Translations: [Hyperglycemia, unspecified] Onset: 5 08-29-2022 Episodic Disorders of lipid metabolism (20 sources) Hyperlipidemia; Translations: [Hyperlipidemia, unspecified] Onset: 4 Chronic Diverticulosis and diverticulitis (20 sources) Diverticulitis; Translations: [Diverticulitis of intestine, part unspecified, without perforation or abscess without bleeding] 06-25-2020 Chronic Esophageal disorders (20 sources) Gastroesophageal reflux disease; Translations: [Gastro-esophageal reflux disease without esophagitis] Onset: 5 Chronic Essential hypertension (20 sources) Essential hypertension; Translations: [Essential (primary) hypertension] Onset: 5 Chronic Genitourinary symptoms and ill-defined conditions (20 sources) Dysuria; Translations: [Dysuria] 10-01-2022 Episodic Headache; including migraine (1 source) Chronic tension-type headache, intractable; Translations: [Chronic tension-type headache, intractable] Onset: 4 Chronic Headache; including migraine (1 source) Headache; Translations: [Headache] 04-15-2024 Episodic Malaise and fatigue (20 sources) Malaise; Translations: [Other malaise] 02-20-2023 Episodic Miscellaneous mental health disorders (1 source) Primary insomnia; Translations: [Primary insomnia] Onset: Chronic Mood disorders (20 sources) Depressive disorder; Translations: [Depression] 02-05-2021 Chronic Nausea and vomiting (7 sources) Nausea; Translations: [Nausea] 03-09-2023 Episodic Nonspecific chest pain (20 sources) Chest pain; Translations: [Chest pain, unspecified] 02-05-2021 Episodic Open wounds of extremities (20 sources) Laceration of left thumb; Translations: [Laceration without foreign body of left thumb without damage to nail, initial encounter] 09-29-2021 Episodic Osteoarthritis (20 sources) Arthritis; Translations: [Unspecified osteoarthritis, unspecified site] 02-05-2021 Chronic Comment on above: GENERALIZED Other circulatory disease (20 sources) Pulmonary congestion ; Translations: [Other specified symptoms and signs involving the circulatory and respiratory systems] 02-05-2021 Episodic Other circulatory disease (1 source) Elevated blood pressure; Translations: [Elevated blood-pressure reading, without diagnosis of hypertension] 04-15-2024 Episodic Other diseases of veins and lymphatics (20 sources) Venous insufficiency of leg; Translations: [Venous insufficiency (chronic) (peripheral)] 12-03-2021 Episodic Other diseases of veins and lymphatics (13 sources) Venous insufficiency (chronic) (peripheral); Translations: [Venous (peripheral) insufficiency, unspecified] Episodic Other gastrointestinal disorders (20 sources) H/O: gallstones; Translations: [Personal history of other diseases of the digestive system] 02-05-2021 Episodic Other gastrointestinal disorders (14 sources) Constipation; Translations: [Constipation, unspecified] 11-28-2022 Episodic Other gastrointestinal disorders (13 sources) Constipation, unspecified; Translations: [Constipation, unspecified] 11-28-2022 Episodic Other gastrointestinal disorders (7 sources) Diarrhea; Translations: [Diarrhea, unspecified] 03-09-2023 Episodic Other gastrointestinal disorders (2 sources) Dysphagia; Translations: [Dysphagia, unspecified] 04-15-2024 Episodic Other gastrointestinal disorders (2 sources) Dysphagia, unspecified; Translations: [Dysphagia, unspecified] Onset: Episodic Other injuries and conditions due to external causes (2 sources) History of fall; Translations: [History of falling] 08-29-2024 Episodic Other lower respiratory disease (20 sources) Dyspnea; Translations: [Shortness of breath] 05-15-2021 Episodic Comment on above: WITH EXERTION Other lower respiratory disease (20 sources) Chronic cough; Translations: [Chronic cough] Episodic Other lower respiratory disease (20 sources) Respiratory insufficiency; Translations: [Other abnormalities of breathing] 02-05-2021 Episodic Other lower respiratory disease (12 sources) Shortness of breath; Translations: [Shortness of breath] Episodic Other nutritional; endocrine; and metabolic disorders (20 sources) Body mass index 40+ - severely obese; Translations: [Morbid (severe) obesity due to excess calories] 01-14-2019 Chronic Other nutritional; endocrine; and metabolic disorders (7 sources) Morbid (severe) obesity due to excess calories; Translations: [Morbid obesity] Chronic Other nutritional; endocrine; and metabolic disorders (3 sources) Body mass index (BMI) 45.0-49.9, adult; Translations: [Body Mass Index 45.0-49.9, adult] Chronic Other nutritional; endocrine; and metabolic disorders (9 sources) H/O: hypothyroidism; Translations: [Personal history of other endocrine, nutritional and metabolic disease] 02-20-2023 Episodic Other skin disorders (15 sources) Dry skin dermatitis; Translations: [Xerosis cutis] 08-28-2022 Episodic Other skin disorders (6 sources) Xerosis cutis; Translations: [Contact dermatitis and other eczema due to other specified agents] 08-28-2022 Episodic Other upper respiratory disease (3 sources) Feeling of lump in throat; Translations: [Globus sensation] 08-29-2024 Episodic Other upper respiratory infections (20 sources) Sinusitis; Translations: [Chronic sinusitis, unspecified] 11-26-2020 Chronic Other upper respiratory infections (3 sources) Acute upper respiratory infection, unspecified; Translations: [Acute upper respiratory infections of unspecified site] Episodic Pancreatic disorders (not diabetes) (6 sources) Disorder of pancreas; Translations: [Disease of pancreas, unspecified] 06-30-2023 Episodic Comment on above: MRCP 12.5.23 Pulmonary heart disease (20 sources) Pulmonary hypertension; Translations: [Pulmonary hypertension, unspecified] Chronic Residual codes; unclassified (20 sources) Obstructive sleep apnea syndrome; Translations: [Obstructive sleep apnea (adult) (pediatric)] 06-12-2021 Chronic Comment on above: BiPAP 16/12 cmH2O Residual codes; unclassified (20 sources) Obstructive sleep apnea (adult) (pediatric); Translations: [Obstructive sleep apnea (adult)(pediatric)] Chronic Residual codes; unclassified (20 sources) Insomnia; Translations: [Insomnia, unspecified] 09-04-2021 Episodic Residual codes; unclassified (20 sources) Family history of coronary arteriosclerosis; Translations: [Family history of ischemic heart disease and other diseases of the circulatory system] 12-05-2020 Episodic Residual codes; unclassified (16 sources) Insomnia, unspecified; Translations: [Insomnia, unspecified] Episodic Residual codes; unclassified (3 sources) Localized edema; Translations: [Edema] Episodic Residual codes; unclassified (2 sources) Flushing; Translations: [Flushing] 05-02-2024 Episodic Thyroid disorders (20 sources) Hypothyroidism; Translations: [Hypothyroidism, unspecified] Onset: 5 Chronic Unclassified (2 sources) Foreign body sensation, throat; Translations: [Foreign body sensation, throat] Onset: 4 Unclassified (1 source) Unspecified lump in the left breast, overlapping quadrants; Translations: [Unspecified lump in the left breast, overlapping quadrants] Onset: 4 Urinary tract infections (20 sources) Urinary tract infectious disease; Translations: [Urinary tract infection, site not specified] 04-11-2022 Episodic Past or Other Problems Problem Classification Problem Date Documented Da te Episodic/Chronic Immunizations and screening for infectious disease (20 sources) Requires diphtheria, tetanus and pertussis vaccination; Translations: [Encounter for immunization] Onset: 05-02-2024 09-21-2021 Episodic Neoplasms of unspecified nature or uncertain behavior (7 sources) Benign neoplasm of pancreas; Translations: [Neoplasm of unspecified behavior of digestive system] Onset: 08-21-2023 08-21-2023 Episodic Other circulatory disease (4 sources) Elevated blood-pressure reading, without diagnosis of hypertension; Translations: [Elevated blood pressure reading without diagnosis of hypertension] Onset: 04-15-2024 Episodic Other screening for suspected conditions (not mental disorders or infectious disease) (1 source) Encounter for screening mammogram for malignant neoplasm of breast; Translations: [Encounter for screening mammogram for malignant neoplasm of breast] Onset: 03-30-2024 Episodic Residual codes; unclassified (1 source) Flushing; Translations: [Flushing] Onset: 04-15-2024 Episodic Residual codes; unclassified (1 source) Asymptomatic menopausal state; Translations: [Asymptomatic menopausal state] Onset: 02-01-2024 Episodic Spondylosis; intervertebral disc disorders; other back problems (20 sources) Back problem; Translations: [Dorsopathy, unspecified] Onset: 04-15-2024 Episodic Results Test Name Value Interpretation Reference Range Facility EGD Reporton 10-26-2024 EGD Report [facility] Medical Records Department [address] [place] [address] EGD Report MR#: [id number] Acct: [id number] Name: CULLEN CUEVA Rep #: [id number] : 1955 69 From: Brant Langley DO PCP: Dr. Joseph Smyth MD Status:[facility] Patient Name: Cullen Cueva Procedure Date: 10/26/2024 2:48 PM Date of : 1955 Age: 69 Procedure: Upper GI endoscopy Indications: Follow-up of Urbano's esophagus Providers: Brant Langley DO Referring MD: Joseph Smyth MD Medicines: Monitored Anesthesia Care Patient Profile: This is a 69 year old female. Refer to note in patient chart for documentation of history and physical. Patient has symptoms of chronic heartburn. Complications: No immediate complications. Procedure: Pre-Anesthesia Assessment: - Prior to the procedure, a History and Physical was performed, and patient medications and allergies were reviewed. The patient is competent. The risks and benefits of the procedure and the sedation options and risks were discussed with the patient. All questions were answered and informed consent was obtained. Patient identification and proposed procedure were verified by the physician in the pre-procedure area. Mental Status Examination: alert and oriented. Airway Examination: normal oropharyngeal airway and neck mobility. Respiratory Examination: clear to auscultation. CV Examination: normal. Prophylactic Antibiotics: The patient does not require prophylactic antibiotics. Prior Anticoagulants: The patient has taken no anticoagulant or antiplatelet agents except for NSAID medication. ASA Grade Assessment: III - A patient with severe systemic disease. After reviewing the risks and benefits, the patient was deemed in satisfactory condition to undergo the procedure. The anesthesia plan was to use monitored anesthesia care (MAC). Immediately prior to administration of medications, the patient was re-assessed for adequacy to receive sedatives. The heart rate, respiratory rate, oxygen saturations, blood pressure, adequacy of pulmonary ventilation, and response to care were monitored throughout the procedure. The physical status of the patient was re-assessed after the procedure. After obtaining informed consent, the endoscope was passed under direct vision. Throughout the procedure, the patient's blood pressure, pulse, and oxygen saturations were monitored continuously. The gastroscope was introduced through the mouth, and advanced to the second part of duodenum. The upper GI endoscopy was accomplished without difficulty. The patient tolerated the procedure well. Scope In: 2:59:07 PM Scope Out: 3:01:01 PM Total Procedure Duration Time 0 hours 1 minute 54 seconds Findings: The esophagus and gastroesophageal junction were examined with white light from a forward view and retroflexed position. There were esophageal mucosal changes secondary to established short-segment Urbano's disease. These changes involved the mucosa at the upper extent of the gastric folds (39 cm from the incisors) extending to the Z-line (43 cm from the incisors). Garnett-colored mucosa was present. The maximum longitudinal extent of these esophageal mucosal changes was 5 cm in length. Biopsies were taken with a cold forceps for histology. Verification of patient identification for the specimen was done. Estimated blood loss was minimal. Multiple medium hyperplastic polyps with no stigmata of recent bleeding were found in the gastric fundus and in the gastric body. No gross lesions were noted in the duodenal bulb. Impression: - Esophageal mucosal changes secondary to established short-segment Urbano's disease. Biopsied. - Multiple gastric polyps. - No gross lesions in the duodenal bulb. Recommendation: - Discharge patient to home. - Resume previous diet. - Continue present medications. - Await pathology results. Procedure Code(s): --- Professional --- 44082, Esophagogastroduodenosco py, flexible, transoral; with biopsy, single or multiple CPT copyright 2021 [employer]. All rights reserved. The codes documented in this report are preliminary and upon trip follower review may be revised to meet current compliance requirements. Brant Langley DO 10/26/2024 3:10:29 PM This report has been signed electronically. Number of Addenda: 0 Note Initiated On: 10/26/2024 2:48 PM 10/26/24 1510 Date Brant Langley DO Cosigner Signature: Date (if indicated) CC: Dr. Joseph Smyth MD; Brant Langley DO Date Dictated: 10/26/24 1448 Date Transcribed: Safety Associate: RAY Signed [facility] MR/POSTOP.[facility] 10-26-2024 MR/POSTOP.[facility] Medical Records Department [address] [place] [id number] Anesthesia Postop Eval I 10/26/241513 MR#: [id number] Acct: [id number] Name: CULLEN CUEVA Rep #: [id number] : 1955 69 From: Twan Serrato CRNA PCP: Dr. Joseph Smyth MD Status:REG SDC Y Race: C Location: [place] [address] Anesthesia: Postop Eval I Current Vital Signs Temperature: 97.7 F Pulse Rate: 83 Blood Pressure: 123/68 Respiratory Rate: 16 Pulse Ox: 94 Assessment Airway patent: Yes Spontaneous unlabored respirations: Yes nausea: No Vomiting: No Anesthesia Complication: No Fluid Hydration Crystalloid volume administer (ml): 200 Total IV fluid infused: 200 Progress Note Anesthesia document: Postop Eval 1 completed: Yes 10/26/241513 Date Twan Hartt SOCIOLOGY PROFESSOR Cosigner Signature: Date CC: Signed Normal [facility] MR/[id number] 10-26-2024 MR/POSTOPAN2 [facility] Medical Records Department [address] [facility] [place] [address] Anesthesia Postop Eval II 10/26/241745 MR#: [id number] Acct: [id number] Name: CULLEN CUEVA Rep #: [id number] : 1955 69 From: Corey Patel MD PCP: Dr. Joseph Smyth MD Status:[facility] Y Race: C Location: [place] Anesthesia Postop Eval I Sum Postop Eval Completion status Anesthesia document: Postop Eval 1 completed: Yes Anesthesia Postop Eval I Summary Anesthesia Postop Eval I Summary: Anesthesia Postop Eval I: Assessment Summary Airway patent Yes 10/26/24 15:14 SOCIOLOGY [email or web address].[email or web address] Spontaneous unlabored Yes 10/26/24 15:14 SOCIOLOGY PROFESSOR.TNES respirations Mental status nausea No 10/26/24 15:14 SOCIOLOGY PROFESSOR.TNES Vomiting No 10/26/24 15:14 SOCIOLOGY PROFESSOR.TNES Anesthesia Postop Eval I: Fluid Summary Crystalloid volume administer 200 10/26/24 15:14 SOCIOLOGY PROFESSOR.TNES (ml) Colloids volume administered ( ml) Blood Product volume administered (ml) Total IV fluid infused 200 10/26/24 15:14 SOCIOLOGY PROFESSOR.TNES Anesthesia Postop Eval I: Summary Notes Anesthesia Complication No 10/26/24 15:14 SOCIOLOGY PROFESSOR.TNES Anesthesia Complication Comment: Post-operative progress note Anesthesia: Postop Eval II Evaluation Mental status: Awake and Calm Pain Level: 0 nausea: No Vomiting: No Complications Anesthesia Complication: No 10/26/241746 Date Corey Patel MD Cosigner Signature: CC: Signed Normal [facility] Surgery Specimen Level Faye 10-26-2024 Surgery Specimen Level IV Patient Age/Sex Location Account Attending Physician CULLEN CUEVA 69/F MATTY [id number] Brant Langley DO Specimen: [id number] Received: 10/26/24 Status: ALTHEA Catalan Num: [id number] Spec Type: EGD BIOPSY Subm Dr: DO MORELIA Powell OPERATION: EGD with biopsy PRE-OP DIAGNOSIS: Dysphagia, globus sensation, Urbano's esophagus TISSUE SUBMITTED: A- Distal esophagus biopsy MICROSCOPIC DIAGNOSIS A. Esophagus, distal, biopsy: Squamous mucosa with mild reactive change. Columnar mucosa negative for goblet cell metaplasia. MICROSCOPIC DESCRIPTION Slides are reviewed. GROSS DESCRIPTION A. Received in formalin in a container labeled with the patient's name, date of , and distal esophagus biopsy are 2 may-pink fragments of mucosal tissue measuring 0.4 x 0.4 x 0.2 cm and 0.7 x 0.2 x 0.2 cm. Submitted in toto in A1. [facility] 10-27-2024 CPT:93079 Patient Age/Sex Location Account Attending Physician CULLEN CUEVA 69/F MATTY [id number] Brant Langley DO Signed (signature on file) Dr. Marquita Palacios MD 11/08/24 1426 Normal [facility] Comment on above: Performed By: #### P SUIV ####[facility] [id number] [place], [address] MR/PAT.ANEon 10-24-2024 MR/PAT.IRINA [facility] Medical Records Department [address] [place] [address] PAT - Anesthesia 10/24/24 1623 MR#: [id number] Acct: [id number] Name: CULLEN CUEVA Rep #: [id number] : 1955 69 From: Corey Patel MD PCP: Dr. Joseph Smyth MD Status:[facility] Y Race: C Location: [place] Pre-Assessment Diagnosis/Proposed Procedure Planned Operative Procedure(s): EGD Anesthesia History Anesthesia History - lion hunter: Anesthesia History - lion hunter Hx Hospitalization No 10/24/24 13:50 Any Problems With Anesthesia No 10/24/24 13:50 Cholinesterase deficiency No 10/24/24 13:50 You/Your Family Experience No 10/24/24 13:50 fever (hyperthermia) with Relationship Recent Exposure to Contagious No 06/29/23 07:13 Disease Does patient have nerve No 10/24/24 13:50 stimulator Patient instructed to have device shut off --Does patient have Pacemaker or ICD? When Was Last Pacemaker Check QUESTION #4 FULL TEXT: You/Your Family Experience fever (hyperthermia) with Anesthesia Last Oral Intake Last Oral intake: Last Oral Intake NPO since Meds taken in AM with sips of water? Meds patient instructed to take am of surgery PONV PONV - lion hunter: PONV - lion hunter Female Yes 10/24/24 13:50 HX of Motion Sickness Yes 10/24/24 13:50 HX of N/V After Surgery No 10/24/24 13:50 Non-Smoker Yes 10/24/24 13:50 Duration of Surgery greater No 10/24/24 13:50 than 60 minutes Number of Risk Factors 3 10/24/24 13:50 PONV Score Moderate Risk 10/24/24 13:50 Height Weight Height Weight: Anesthesia: Height Weight Height 5 ft 7 in 09/23/24 08:28 Respiratory Assessment Respiratory Assessment - lion hunter: Respiratory Tract Infection Hx - lion hunter Hx Respiratory Tract Infection No 10/24/24 13:50 STOP Sleep Apnea STOP Sleep Apnea - lion hunter: STOP Sleep Apnea - lion hunter Hx Hypertension No 10/24/24 13:50 Hx Sleep Apnea Yes 10/24/24 13:50 CPAP No 10/24/24 13:50 BIPAP Yes 10/24/24 13:50 Do you snore loudly (louder than talking or can be heard Do you often feel tired/ fatigued/ sleepy during daytime? Has anyone observed you stop breathing during sleep? STOP Results Positive 10/24/24 13:50 QUESTION #5 FULL TEXT : Do you snore loudly (louder than talking or can be heard through closed doors)? 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 Specify any problems Hx of Preganancy in last 3 No 10/24/24 13:50 Months Nurse Filling Out Transfusion MGRIFFITH 10/24/24 13:50 Questions: Date: 10/24/24 10/24/24 13:50 Time: 13:52 10/24/24 13:50 Patient unable to answer at this time (ie. confused, unrespo /Reproduction History /Reproductive History - lion hunter: /Reproductive Hx- lion hunter Hx Now No 10/24/24 13:50 Gestational Age (in weeks): EDC: Hx Hx Para Hx Section SAB No 10/24/24 13:50 [facility] Medical History (Updated 10/24/24 @ 14:00 by Mana Shaw) Shortness of breath on exertion Anxiety and depression History of fall Chronic back pain Borderline type 2 diabetes mellitus Flu vaccine need Hx: UTI (urinary tract infection) Malaise and fatigue Allergies Dysuria Blood glucose elevated Dry skin dermatitis Musculoskeletal back pain Venous insufficiency of both lower extremities Post-menopausal Marijuana use Injury of back Restless legs History of diverticulitis Gastric reflux Former smoker BiPAP (biphasic positive airway pressure) dependence Leg cramps History of edema History of stress test History of echocardiogram Cardiology follow-up encounter Health care maintenance Insomnia Asthma exacerbation Scoliosis Essential hypertension Family history of coronary artery disease Epigastric abdominal tenderness Sinusitis Chest congestion Routine health xander (more content not included)... Normal [facility] Gastroenterology Visit Repor ton 10-18-2024 Gastroenterology Visit Report [facility] Gastroenterology [address] [place] [address] OFFICE VISIT Date of Service: 10/18/24 MR#: [id number] Acct: [id number] Name: CULLEN CUEVA Rep #: [id number] : 1955 Provider: Brant Langley DO Age/Sex: 69/F [place] [facility] [place] Status: Signed Intake Vital Signs 09/23/24 08:28 Height 5 ft 7 in Weight: 299 lb 6 oz BMI 46.8 BP 158/92 H Blood Pressure Location Lt brachial Position Sitting Respiration 16 Pulse 75 Pulse Source Monitor Temp 96.3 F L Temp Source Temporal Pulse Oximetry (%) 95 Oxygen Delivery Method room air Intake Visit Reasons: follow up Chief Complaint: Follow-up Allergies pravastatin (From Pravachol) Allergy (Mild, Verified 09/23/24 08:26) itching ketoprofen (From Orudis) Allergy (Verified 09/23/24 08:26) Nausea/Vom/Diarrhea hydrochlorothiazide (From Dyazide) Adverse Reaction (Intermediate, Verified 09/23/24 08:26) Other triamterene (From Dyazide) Adverse Reaction (Intermediate, Verified 09/23/24 08:26) Other Medications ???Medication ???Instructions ???Recorded ???Confirmed ???Type calcium carbonate 1,000 mg PO DAILY 06/22/20 5 History cholecalciferol (vitamin D3) 25 2,000 unit PO DAILY 06/22/2010/18 History mcg (1,000 unit) chewable tablet mecobalamin (vitamin B12) 5,000 5,000 mcg PO DAILY SUPPLEMENT 11/1410/18/24 History mcg disintegrating tablet triamcinolone acetonide 0.1 % 1 applic topical BID PRN rash 08/1310/18/24 Rx topical cream #453.6 grams tiotropium bromide 1.25 2 puff inhalation DAILY PRN SOB 10/18/24 History mcg/actuation mist for inhalation (Spiriva Respimat) budesonide-formoterol HFA 160 2 puff inhalation BID PRN ASTHMA 1 06/30/22 10/18/24 History mcg-4.5 mcg/actuation aerosol inhaler (Symbicort) montelukast 10 mg tablet 10 mg PO QHS PRN ALLERGIES 4 10/18/24 History (Singulair) compress.stocking,knee,r eg,lrg #2 ea 11/02/23 10/18/24 Rx albuterol sulfate 90 mcg/actuation 2 - 3 puff inhalation Q6H PRN 10/18/24 Rx aerosol inhaler shortness of breath or wheezing #8.5 grams trazodone 50 mg tablet 150 mg (3 x 50 mg) PO QHS PRN 06/1610/18/24 Rx Sleep 3 months #240 tabs rosuvastatin 40 mg tablet (Crestor) 40 mg PO DAILY #90 tabs 5 10/18/24 Rx levothyroxine 175 mcg tablet 175 mcg PO DAILY #90 tabs 08/22/24 10/18/24 Rx omeprazole 40 mg capsule,delayed 40 mg PO DAILY #90 caps 08/22/24 0 10/18/24 Rx release fluoxetine 10 mg capsule 10 mg PO BID #60 caps 09/23/2412/07 Rx fluoxetine 40 mg capsule 40 mg PO DAILY #90 caps 09/23/24 0 10/18/24 Rx zolpidem 5 mg tablet 5 mg PO QHS PRN insomnia #30 tabs 09/23/24 10/18/24 Rx pramipexole 0.25 mg tablet 0.25 - 0.75 mg (1 - 3 x 0.25 mg) 0 10/10/24 10/18/24 Rx PO QHS RLS #90 tabs Have you fallen in the past year?: No Nurse's Note: Pt was scheduled for EGD on 12.22.24 at the end of their appt today. Reviewed prep instructions and which medications to hold prior to procedure with pt in office. A paper copy of EGD prep instructions were given to pt. Pt denies any questions or concerns at this time. [facility] Medical History (Updated 09/23/24 @ 13:[address] Joseph Smyth MD) Anxiety and depression History of fall Chronic back pain Borderline type 2 diabetes mellitus Flu vaccine need Hx: UTI (urinary tract infection) Malaise and fatigue Allergies Dysuria Blood glucose elevated Dry skin dermatitis Musculoskeletal back pain Venous insufficiency of both lower extremities Wears glasses Post-menopausal Marijuana use Injury of back Restless legs History of diverticulitis Gastric reflux Former smoker BiPAP (biphasic positive airway pressure) dependence Leg cramps History of edema History of stress test History of echocardiogram Cardiology follow-up encounter Health care maintenance Insomnia Asthma exacerbation Scoliosis Essential hypertension Family history of coronary artery disease Epigastric abdominal tenderness Sinusitis Chest congestion Routine health maintenance History of gallstones Back problem Arthritis Diverticulitis Barretts esophagus Depression (emotion) Morbid obesity with BMI of 40.0-44.9, adult Anxiety Hypothyroidism Respiratory insufficiency Hyperlipemia Surgical History H/O cataract removal with insertion of prosthetic lens History of thoracic surgery History of cholecystectomy ( 1998) History of hysterectomy ( 1998) History of colonoscopy History of esophagogastroduodenosco py (EGD) ( 2015) Family History Sister CAD (coronary artery disease) Thyroid disorder Brother CAD (coronary (more content not included)... Normal [facility] Internal Medicine Office Vis kate 09-23-2024 Internal Medicine Office Visit [facility] [address] [place] [address] [place] [address] OFFICE VISIT Date of Service: 09/23/24 MR#: [id number] Acct: [id number] Name: CULLEN CUEVA Rep #: [id number] : 1955 Provider: Dr. Joseph jane MD Age/Sex: 69/F [place] [facility] Status: Signed Intake Vital Signs 08/29/24 08:59 09/23/24 08:28 Height 5 ft 7 in 5 ft 7 in Weight: 299 lb 6 oz BMI 46.8 BP 158/92 H Blood Pressure Location Lt brachial Position Sitting Respiration 16 Pulse 75 Pulse Source Monitor Temp 96.3 F L Temp Source Temporal Pulse Oximetry (%) 95 Oxygen Delivery Method room air Intake Visit Reasons: POSSIBLE INCREASE IN MEDS Chief Complaint: Follow-up Licensing Director Required: No Accompanied by: Self Is patient in pain?: No Allergies pravastatin (From Pravachol) Allergy (Mild, Verified 09/23/24 08:26) itching ketoprofen (From Orudis) Allergy (Verified 09/23/24 08:26) Nausea/Vom/Diarrhea hydrochlorothiazide (From Dyazide) Adverse Reaction (Intermediate, Verified 09/23/24 08:26) Other triamterene (From Dyazide) Adverse Reaction (Intermediate, Verified 09/23/24 08:26) Other Medications ???Medication ???Instructions ???Recorded ???Confirmed ???Type calcium carbonate 1,000 mg PO DAILY 06/22/20 5 History cholecalciferol (vitamin D3) 25 2,000 unit PO DAILY 06/22/2009/23 History mcg (1,000 unit) chewable tablet mecobalamin (vitamin B12) 5,000 5,000 mcg PO DAILY SUPPLEMENT 11/1409/23/24 History mcg disintegrating tablet triamcinolone acetonide 0.1 % 1 applic topical BID PRN rash 08/1309/23/24 Rx topical cream #453.6 grams tiotropium bromide 1.25 2 puff inhalation DAILY PRN SOB 09/23/24 History mcg/actuation mist for inhalation (Spiriva Respimat) budesonide-formoterol HFA 160 2 puff inhalation BID PRN ASTHMA 1 06/30/22 09/23/24 History mcg-4.5 mcg/actuation aerosol inhaler (Symbicort) montelukast 10 mg tablet 10 mg PO QHS PRN ALLERGIES 4 09/23/24 History (Singulair) compress.stocking,knee,r eg,lrg #2 ea 11/02/23 09/23/24 Rx albuterol sulfate 90 mcg/actuation 2 - 3 puff inhalation Q6H PRN 09/23/24 Rx aerosol inhaler shortness of breath or wheezing #8.5 grams pramipexole 0.25 mg tablet 0.25 - 0.75 mg (1 - 3 x 0.25 mg) 0 07/01/24 09/23/24 Rx PO QHS RLS #90 tabs trazodone 50 mg tablet 150 mg (3 x 50 mg) PO QHS PRN 06/1609/23/24 Rx Sleep 3 months #240 tabs rosuvastatin 40 mg tablet (Crestor) 40 mg PO DAILY #90 tabs 5 09/23/24 Rx levothyroxine 175 mcg tablet 175 mcg PO DAILY #90 tabs 08/22/24 09/23/24 Rx omeprazole 40 mg capsule,delayed 40 mg PO DAILY #90 caps 08/22/24 0 09/23/24 Rx release fluoxetine 10 mg capsule 10 mg PO BID #60 caps 09/23/2405/09 Rx fluoxetine 40 mg capsule 40 mg PO DAILY #90 caps 09/23/24 0 09/23/24 Rx zolpidem 5 mg tablet 5 mg PO QHS PRN insomnia #30 tabs 09/23/24 09/23/24 Rx Have you fallen in the past year?: No Nurse's Note: son diagnosed with stage 1v lung cancer thinks she may need some extra medication for depression etc PFSH Medical History (Updated 09/23/24 @ 13:[address] Joseph Smyth MD) Anxiety and depression History of fall Chronic back pain Borderline type 2 diabetes mellitus Flu vaccine need Hx: UTI (urinary tract infection) Malaise and fatigue Allergies Dysuria Blood glucose elevated Dry skin dermatitis Musculoskeletal back pain Venous insufficiency of both lower extremities Wears glasses Post-menopausal Marijuana use Injury of back Restless legs History of diverticulitis Gastric reflux Former smoker BiPAP (biphasic positive airway pressure) dependence Leg cramps History of edema History of stress test History of echocardiogram Cardiology follow-up encounter Health care maintenance Insomnia Asthma exacerbation Scoliosis Essential hypertension Family history of coronary artery disease Epigastric abdominal tenderness Sinusitis Chest congestion Routine health maintenance History of gallstones Back problem Arthritis Diverticulitis Barretts esophagus Depression (emotion) Morbid obesity with BMI of 40.0-44.9, adult Anxiety Hypothyroidism Respiratory insufficiency Hyperlipemia Surgical History H/O cataract removal with insertion of prosthetic lens History of thoracic surgery History of cholecystectomy ( 1998) History of hysterectomy ( 1998) History of colonoscopy History of esophagogastroduodenosco py (EGD) ( 2015) Family History Sister CAD (coronary artery disease) Thyroid disorder Brother CAD (coronary artery disease) Heart disease Myocardial infarction Alcoholi (more content not included)... Normal [facility] Internal Medicine Office Vis iton 08-29-2024 Internal Medicine Office Visit [facility] [place] [address] [place] [address] OFFICE VISIT Date of Service: 08/29/24 MR#: [id number] Acct: [id number] Name: CULLEN CUEVA Rep #: [id number] : 1955 Provider: Dr. Joseph jane MD Age/Sex: 69/F [place] [facility] Status: Signed Intake Vital Signs 05/02/24 09:56 05/10/24 07:37 08/29/24 08:59 Height 5 ft 7 in 5 ft 7 in 5 ft 7 in Weight: 303 lb BMI 47.4 BP 130/80 H Blood Pressure Location Lt brachial Position Sitting Respiration 16 Pulse 61 Pulse Source Monitor Temp 97.4 F L Temp Source Temporal Pulse Oximetry (%) 97 Oxygen Delivery Method room air Intake Visit Reasons: 4 M FU Chief Complaint: Follow-up chronic conditions Licensing Director Required: No Is patient in pain?: No Allergies pravastatin (From Pravachol) Allergy (Mild, Verified 08/29/24 08:52) itching ketoprofen (From Orudis) Allergy (Verified 08/29/24 08:52) Nausea/Vom/Diarrhea hydrochlorothiazide (From Dyazide) Adverse Reaction (Intermediate, Verified 08/29/24 08:52) Other triamterene (From Dyazide) Adverse Reaction (Intermediate, Verified 08/29/24 08:52) Other Medications ???Medication ???Instructions ???Recorded ???Confirmed ???Type calcium carbonate 1,000 mg PO DAILY 06/22/20 5 History cholecalciferol (vitamin D3) 25 2,000 unit PO DAILY 06/22/2008/29 History mcg (1,000 unit) chewable tablet mecobalamin (vitamin B12) 5,000 5,000 mcg PO DAILY SUPPLEMENT 11/1408/29/24 History mcg disintegrating tablet triamcinolone acetonide 0.1 % 1 applic topical BID PRN rash 08/1308/29/24 Rx topical cream #453.6 grams tiotropium bromide 1.25 2 puff inhalation DAILY PRN SOB 08/29/24 History mcg/actuation mist for inhalation (Spiriva Respimat) budesonide-formoterol HFA 160 2 puff inhalation BID PRN ASTHMA 1 06/30/22 08/29/24 History mcg-4.5 mcg/actuation aerosol inhaler (Symbicort) montelukast 10 mg tablet 10 mg PO QHS PRN ALLERGIES 4 08/29/24 History (Singulair) compress.stocking,knee,r eg,lrg #2 ea 11/02/23 08/29/24 Rx albuterol sulfate 90 mcg/actuation 2 - 3 puff inhalation Q6H PRN 08/29/24 Rx aerosol inhaler shortness of breath or wheezing #8.5 grams pramipexole 0.25 mg tablet 0.25 - 0.75 mg (1 - 3 x 0.25 mg) 0 07/01/24 08/29/24 Rx PO QHS RLS #90 tabs trazodone 50 mg tablet 150 mg (3 x 50 mg) PO QHS PRN 06/1608/29/24 Rx Sleep 3 months #240 tabs rosuvastatin 40 mg tablet (Crestor) 40 mg PO DAILY #90 tabs 5 08/29/24 Rx fluoxetine 40 mg capsule 40 mg PO DAILY #90 caps 08/22/24 0 08/29/24 Rx levothyroxine 175 mcg tablet 175 mcg PO DAILY #90 tabs 08/22/24 08/29/24 Rx omeprazole 40 mg capsule,delayed 40 mg PO DAILY #90 caps 08/22/24 0 08/29/24 Rx release zolpidem 5 mg tablet 5 mg PO QHS PRN insomnia #30 tabs 08/29/24 08/29/24 Rx Have you fallen in the past year?: Yes (08/2024.) [facility] Medical History (Updated 08/29/24 @ 17:[address] Joseph Smyth MD) History of fall Chronic back pain Borderline type 2 diabetes mellitus Flu vaccine need Hx: UTI (urinary tract infection) Malaise and fatigue Allergies Dysuria Blood glucose elevated Dry skin dermatitis Musculoskeletal back pain Venous insufficiency of both lower extremities Wears glasses Post-menopausal Marijuana use Injury of back Restless legs History of diverticulitis Gastric reflux Former smoker BiPAP (biphasic positive airway pressure) dependence Leg cramps History of edema History of stress test History of echocardiogram Cardiology follow-up encounter Health care maintenance Insomnia Asthma exacerbation Scoliosis Essential hypertension Family history of coronary artery disease Epigastric abdominal tenderness Sinusitis Chest congestion Routine health maintenance History of gallstones Back problem Arthritis Diverticulitis Barretts esophagus Depression (emotion) Morbid obesity with BMI of 40.0-44.9, adult Anxiety Hypothyroidism Respiratory insufficiency Hyperlipemia Surgical History (Updated 08/29/24 @ 09:02 by Coby Urbina MA) H/O cataract removal with insertion of prosthetic lens History of thoracic surgery History of cholecystectomy ( 1998) History of hysterectomy ( 1998) History of colonoscopy History of esophagogastroduodenosco py (EGD) ( 2015) Family History Sister CAD (coronary artery disease) Thyroid disorder Brother CAD (coronary artery disease) Heart disease Myocardial infarction Alcoholism Angina at rest Mother Diabetes Myocardial infarction Father Hypertension Heart disease Myocardial infarction Angina at rest Thyroid disorder Grandfather Alcoholism (more content not included)... Normal [facility] - Hematology and Cell countsOrdered By: Joseph Smyth on 08-29-2024 HbA1c (Bld) [Mass fraction] 6.2 % 4.2-6.3 [facility] MRI Abd WITH and W/O Contras ton 05-24-2024 MRI Abd WITH and W/O Contrast [facility] Imaging Services [address] [place], [place] [address] MRI Abd WITH and W/O Contrast MR#: [id number] Acct: [id number] Name: CULLEN CUEVA Rep #: [id number] : 1955 F 69 From: Joseph Beltrán PCP: Dr. Joseph Smyth MD Status: REG CL Study: MRI Abd WITH and W/O Contrast Date of Exam: Exam# [id number] Ordering Dr: AUTUMN POOLE [id number] EXAM: MR ABDOMEN WITHOUT AND WITH INTRAVENOUS CONTRAST CLINICAL INDICATION: CYST IN UNCINATE PROCESS PANCREAS FOLLOW UP PLEASE COMPARE TO PREVIOUS TECHNIQUE: Multiplanar and multisequence MR images of the abdomen without and with intravenous contrast. CONTRAST: IV CLARISCAN 27ML COMPARISON: MRCP of 05/19/2023. FINDINGS: LOWER THORAX: Unremarkable. No pleural effusion. LIVER: Unremarkable. Normal morphology. No focal mass. GALLBLADDER AND BILE DUCTS: Unremarkable. No gallstones. No gallbladder distention or wall edema. No intra- or extrahepatic biliary ductal dilation. PANCREAS: Previously described 1 cm cystic lesion in the head of the pancreas is not definitely identified on this exam. SPLEEN: Normal size without focal cystic or solid mass. ADRENALS: No nodules. KIDNEYS AND URETERS: Normal renal size and position. No hydronephrosis. INTRAPERITONEAL SPACE: No ascites or other fluid collection. No free air. VASCULATURE: Abdominal aorta is non-dilated. LYMPH NODES: No enlarged lymph nodes. MRI/MRI Abd WITH and W/O Contrast IMPRESSION: Previously described 1 cm cystic lesion in the head of the pancreas is not definitely identified on this exam. Repeat MRI of the pancreas with contrast in one year is recommended. Electronically Signed: Joseph Simpson MD at 14:03 EST , CC: Dr. Joseph Smyth MD; AUTUMN POOLE Safety Associate: Signed Normal [facility] Pulmonary Visit Reporton Pulmonary Visit Report [facility] [place] [address] [place] [address] OFFICE VISIT Date of Service: 05/10/24 MR#: [id number] Acct: [id number] Name: CULLEN CUEVA Rep #: [id number] : 1955 Provider: HILARY Saleh Age/Sex: 69/F [place] [facility] Status: Signed Assessment and Plan Assessment and Plan (1) JADEN (obstructive sleep apnea): Status: Chronic Comment: BiPAP 16/12 cmH2O Plan: She is using and benefiting from Pap therapy. No indication for titration study at this time. Contact the office for any new or worsening symptoms in the meantime. Follow-up in 1 year. (2) Asthma: Status: Chronic Qualifiers: Asthma severity: moderate Asthma persistence: persistent Asthma complication type: with acute exacerbation Qualified Code(s): J45.41 - Moderate persistent asthma with (acute) exacerbation Plan: Stable. Mild and intermittent, not requiring maintenance medication. No indication for antibiotics or steroids. No additional testing at this time. Follow-up in 1 year. (3) Morbid obesity with BMI of 40.0-44.9, adult: Status: Chronic Plan: 8 cm gnosis. Need to encourage this. Medications: Refilled albuterol sulfate 90 mcg/actuation 2 - 3 puffs inhalation Q6H PRN 8.5 grams 3RF shortness of breath or wheezing J45.41 - Moderate persistent asthma with (acute) exacerbation HPI HPI Comments Details: This patient presents to the office today for follow-up of her asthma, obstructive sleep apnea and pulmonary hypertension. She is ambulatory and currently on room air. She has not recently been seen in the ED or urgent care for respiratory illness. She has not required any antibiotics or prednisone for any breathing problems. She is not currently on any maintenance inhalers. She did state that in the spring she had some seasonal allergy symptoms. She was able to utilize her albuterol rescue inhaler occasionally, found to be very effective. She did not require any additional medications or office visits. Currently she denies any difficulty with shortness of breath. She denies any wheezing, chest tightness, chest pain or palpitations. She denies any cough, sputum production or hemoptysis. She has not had any fever, chills or body aches. She wakes up feeling rested and refreshed with the use of her Pap device. She denies any headaches or dry mouth. She is not requiring naps. She is not nodding off to sleep unintentionally. She also denies excessive nocturia. Compliance report for the past 30 days shows 100% compliance with average use of 8 hours and 48 minutes per night. Current setting is 16/12 cm of water with a residual AHI of 0.8 events per hour. Leaks do not appear to be problematic. Intake Vital Signs 05/05/23 08:05 05/02/24 09:56 05/10/24 07:37 Height 5 ft 7 in 5 ft 7 in 5 ft 7 in Weight: 305 lb BMI 47.7 BP 122/76 H Blood Pressure Location Lt brachial Position Sitting Respiration 20 H Pulse 64 Pulse Source Monitor Temp 96.5 F L Temperature Source Temporal Artery Pulse Oximetry (%) 96 Oxygen Delivery Method room air Intake Visit Reasons: 1 Y FU Chief Complaint: Follow-up chronic conditions DME Vendor: pap- ? Accompanied by: Self Is patient in pain?: No Allergies pravastatin (From Pravachol) Allergy (Mild, Verified 05/10/24 13:48) itching ketoprofen (From Orudis) Allergy (Verified 05/10/24 13:48) Nausea/Vom/Diarrhea hydrochlorothiazide (From Dyazide) Adverse Reaction (Intermediate, Verified 05/10/24 13:48) Other triamterene (From Dyazide) Adverse Reaction (Intermediate, Verified 05/10/24 13:48) Other Medications ???Medication ???Instructions ???Recorded ???Confirmed ???Type calcium carbonate 1,000 mg PO DAILY 06/22/20 05/10/24 History cholecalciferol (vitamin D3) 25 2,000 unit PO DAILY 06/22/20 05/10/24 History mcg (1,000 unit) chewable tablet mecobalamin (vitamin B12) 5,000 5,000 mcg PO DAILY SUPPLEMENT 12/05/20 05/10/24 History mcg disintegrating tablet triamcinolone acetonide 0.1 % 1 applic topical BID PRN rash 08/29/22 05/10/24 Rx topical cream #453.6 grams tiotropium bromide 1.25 2 puff inhalation DAILY PRN SOB 02/27/23 05/10/24 History mcg/actuation mist for inhalation (Spiriva Respimat) budesonide-formoterol HFA 160 2 puff inhalation BID PRN ASTHMA 04/30/23 05/10/24 History mcg-4.5 mcg/actuation aerosol inhaler (Symbicort) montelukast 10 mg tablet 10 mg PO QHS PRN ALLERGIES 10/30/23 05/10/24 History (Singulair) pramipexole 0.25 mg tablet 0.25 - 0.75 mg (1 - 3 x 0.25 mg) 10/30/23 05/10/24 Rx PO QHS RLS #90 tabs trazodone 50 mg tablet 150 mg (3 x 50 mg) PO QHS PRN 10/30/23 05/10/24 Rx Sleep 3 months #240 tabs compress.stocking,knee,r eg,lrg #2 ea 11/02/23 05/10/24 Rx fluoxetine 40 mg capsule 40 mg (more content not included)... Normal [facility] Basic Metabolic Profile (BMP )on 05-02-2024 BUN/CRE 19.3 RATIO Normal - [facility] Comment on above: Performed By: #### L 100.0100, L501.9520, L500.2500 ####[facility] [address] [place], [address] CA,Total 9.2 mg/dL Normal 8.5-10.1 [facility] Comment on above: Performed By: #### L 100.0100, L501.9520, L500.2500 ####[facility] [address] [place], [address] Chloride [Moles/Vol] 105 mmol/L Normal 98-107 [facility] Comment on above: Performed By: #### L 100.0100, L501.9520, L500.2500 ####[facility] [address] [place], [address] CO2 [Moles/Vol] 25.0 mmol/L Normal 21.0-32.0 [facility] Comment on above: Performed By: #### L 100.0100, L501.9520, L500.2500 ####[facility] [address] [place], [address] Creatinine [Mass/Vol] 0.78 mg/dL Normal 0.55-1.02 [facility] Comment on above: Result Comment: The validity of the calculated GFR GFRAA in patients over 70 years has not been determined. Clinical correlation is essential. Performed By: #### L 100.0100, L501.9520, L500.2500 ####[facility] [address] [place], [address] EST GFR - AA 95 mL/min Normal >60 [facility] Comment on above: Result Comment: Afri can [place] GFR Calc Performed By: #### L 100.0100, L501.9520, L500.2500 ####[facility] [address] [place], [address] GAP 8 Normal 5-15 [facility] Comment on above: Performed By: #### L 100.0100, L501.9520, L500.2500 ####[facility] [address] [place], [address] GFR/1.73 sq M.predicted among non-blacks MDRD (S/P/Bld) [Vol rate/Area] 78 mL/min/{1.73_m2} Normal >60 [facility] Comment on above: Result Comment: Non- GFR Calc Performed By: #### L 100.0100, L501.9520, L500.2500 ####[facility] [address] [place], [address] Glucose [Mass/Vol] 123 mg/dL High 74-106 [facility] Comment on above: Result Comment: Fast ing Glucose result from 100 to 125 mg/dL suggests IMPAIRED HOMEOSTASIS per A.D.A. criteria. Performed By: #### L 100.0100, L501.9520, L500.2500 ####[facility] [address] [place], [address] Potassium [Moles/Vol] 3.5 mmol/L Normal 3.5-5.1 [facility] Comment on above: Performed By: #### L 100.0100, L501.9520, L500.2500 ####[facility] [address] [place], [address] Sodium [Moles/Vol] 138 mmol/L Normal 136-145 [facility] Comment on above: Performed By: #### L 100.0100, L501.9520, L500.2500 ####[facility] [address] [place], [address] Urea nitrogen [Mass/Vol] 15 mg/dL Normal 7-18 [facility] Comment on above: Performed By: #### L 100.0100, L501.9520, L500.2500 ####[facility] [address] [place], [address] CBC W/Diff, Automatedon 04-15 Absolute Lymph 2.15 X10 3/uL Normal 0.83-4.51 [facility] Comment on above: Performed By: #### L 100.0100, L501.9520, L500.2500 #### [facility] [address] [place], [address] Absolute Neut 6.2 X10 3/uL Normal 2.0-7.7 [facility] Comment on above: Performed By: #### L 100.0100, L501.9520, L500.2500 #### [facility] [address] [place], [address] Basophils/100 WBC (Bld) 0.4 % Normal 0-1 [facility] Comment on above: Performed By: #### L 100.0100, L501.9520, L500.2500 #### [facility] [address] [place], [address] Eosinophils/100 WBC (Bld) 1.5 % Normal 0-5 [facility] Comment on above: Performed By: #### L 100.0100, L501.9520, L500.2500 #### [facility] [address] [place], [address] Erythrocyte distribution width (RBC) [Ratio] 13.1 % Normal 11.6-14.6 [facility] Comment on above: Performed By: #### L 100.0100, L501.9520, L500.2500 #### [facility] [address] [place], [address] Hematocrit (Bld) [Volume fraction] 43.0 % Normal 37-47 [facility] Comment on above: Performed By: #### L 100.0100, L501.9520, L500.2500 #### [facility] [address] [place], [address] Hemoglobin (Bld) [Mass/Vol] 14.3 g/dL Normal 12.0-15.0 [facility] Comment on above: Performed By: #### L 100.0100, L501.9520, L500.2500 #### [facility] [address] [place], [address] IG% 0.400 Normal 0.0-0.9 [facility] Comment on above: Result Comment: IG% - Immature Granulocytes (promyelocytes, myelocytes and metamyelocytes) > 1% indicates that a LEFT SHIFT is Present. Performed By: #### L 100.0100, L501.9520, L500.2500 #### [facility] [address] [place], [address] Lymphocytes/100 WBC (Bld) 23.0 % Normal 19-41 [facility] Comment on above: Performed By: #### L 100.0100, L501.9520, L500.2500 #### [facility] [address] [place], [address] MCH (RBC) [Entitic mass] 30.0 pg Normal 27.0-32.0 [facility] Comment on above: Performed By: #### L 100.0100, L501.9520, L500.2500 #### [facility] [address] [place], [address] MCHC (RBC) [Mass/Vol] 33.3 g/dL Normal 32-36 [facility] Comment on above: Performed By: #### L 100.0100, L501.9520, L500.2500 #### [facility] [address] [place], [address] MCV (RBC) [Entitic vol] 90.1 fL Normal 81-99 [facility] Comment on above: Performed By: #### L 100.0100, L501.9520, L500.2500 #### [facility] [address] [place], [address] Monocytes/100 WBC (Bld) 8.6 % Normal 0-10 [facility] Comment on above: Performed By: #### L 100.0100, L501.9520, L500.2500 #### [facility] [address] [place], [address] Neutrophils/100 WBC (Bld) 66.1 % Normal 47-70 [facility] Comment on above: Performed By: #### L 100.0100, L501.9520, L500.2500 #### [facility] [address] [place], [address] Nucleated RBC (Bld) [#/Vol] 0 10*3/uL Normal 0-5 [facility] Comment on above: Performed By: #### L 100.0100, L501.9520, L500.2500 #### [facility] [address] [place], [address] Platelet mean volume (Bld) [Entitic vol] 9.8 fL Normal 6.2-12.0 [facility] Comment on above: Performed By: #### L 100.0100, L501.9520, L500.2500 #### [facility] [address] [place], [address] Platelets (Bld) [#/Vol] 323 10*3/uL Normal 150-450 [facility] Comment on above: Performed By: #### L 100.0100, L501.9520, L500.2500 #### [facility] [address] [place], [address] RBC (Bld) [#/Vol] 4.77 10*6/uL Normal 4.2-5.4 [facility] Comment on above: Performed By: #### L 100.0100, L501.9520, L500.2500 #### [facility] [address] [place], [address] RDW SD 43.0 fl Normal 35.1-43.9 [facility] Comment on above: Performed By: #### L 100.0100, L501.9520, L500.2500 #### [facility] [address] [place], [address] WBC (Bld) [#/Vol] 9.4 10*3/uL Normal 4.4-11.0 [facility] Comment on above: Performed By: #### L 100.0100, L501.9520, L500.2500 #### [facility] [address] [place], [address] Internal Medicine Office Vis kate 05-02-2024 Internal Medicine Office Visit [facility] [address] [place] [address] [place] [address] OFFICE VISIT Date of Service: 05/02/24 MR#: [id number] Acct: [id number] Name: CULLEN CUEVA Rep #: [id number] : 1955 Provider: Dr. Joseph jane MD Age/Sex: 69/F [place] [facility] Status: Signed Intake Vital Signs 02/01/24 09:21 04/15/24 09:03 05/02/24 09:56 Height 5 ft 7 in 5 ft 7 in 5 ft 7 in Weight: 299 lb BMI 46.8 BP 128/84 H Blood Pressure Location Lt brachial Position Sitting Respiration 16 Pulse 78 Pulse Source Monitor Temp 97.2 F L Temp Source Temporal Pulse Oximetry (%) 96 Oxygen Delivery Method room air Intake Visit Reasons: 3 m fu Chief Complaint: Follow-up chronic conditions Licensing Director Required: No Is patient in pain?: No Allergies pravastatin (From Pravachol) Allergy (Mild, Verified 05/02/24 09:43) itching ketoprofen (From Orudis) Allergy (Verified 05/02/24 09:43) Nausea/Vom/Diarrhea hydrochlorothiazide (From Dyazide) Adverse Reaction (Intermediate, Verified 05/02/24 09:43) Other triamterene (From Dyazide) Adverse Reaction (Intermediate, Verified 05/02/24 09:43) Other Medications ???Medication ???Instructions ???Recorded ???Confirmed ???Type calcium carbonate 1,000 mg PO DAILY 06/22/20 05/02/24 History cholecalciferol (vitamin D3) 25 2,000 unit PO DAILY 06/22/20 05/02/24 History mcg (1,000 unit) chewable tablet mecobalamin (vitamin B12) 5,000 5,000 mcg PO DAILY SUPPLEMENT 12/05/20 05/02/24 History mcg disintegrating tablet triamcinolone acetonide 0.1 % 1 applic topical BID PRN rash 08/29/22 05/02/24 Rx topical cream #453.6 grams albuterol sulfate 90 mcg/actuation 2 - 3 puff inhalation Q6H PRN 10/22/22 05/02/24 Rx aerosol inhaler shortness of breath or wheezing #8.5 grams tiotropium bromide 1.25 2 puff inhalation DAILY PRN SOB 02/27/23 05/02/24 History mcg/actuation mist for inhalation (Spiriva Respimat) budesonide-formoterol HFA 160 2 puff inhalation BID PRN ASTHMA 04/30/23 05/02/24 History mcg-4.5 mcg/actuation aerosol inhaler (Symbicort) montelukast 10 mg tablet 10 mg PO QHS PRN ALLERGIES 10/30/23 05/02/24 History (Singulair) pramipexole 0.25 mg tablet 0.25 - 0.75 mg (1 - 3 x 0.25 mg) 10/30/23 05/02/24 Rx PO QHS RLS #90 tabs trazodone 50 mg tablet 150 mg (3 x 50 mg) PO QHS PRN 10/30/23 05/02/24 Rx Sleep 3 months #240 tabs compress.stocking,knee,r eg,lrg #2 ea 11/02/23 05/02/24 Rx fluoxetine 40 mg capsule 40 mg PO DAILY #90 caps 01/07/24 05/02/24 Rx rosuvastatin 40 mg tablet (Crestor) 40 mg PO DAILY #90 tabs 01/07/24 05/02/24 Rx omeprazole 40 mg capsule,delayed 40 mg PO DAILY #90 caps 01/08/24 05/02/24 Rx release levothyroxine 175 mcg tablet 175 mcg PO DAILY #90 tabs 02/08/24 05/02/24 Rx zolpidem 5 mg tablet 5 mg PO QHS PRN insomnia #30 tabs 04/20/24 05/02/24 Rx Have you fallen in the past year?: No PFSH Medical History Chronic back pain Borderline type 2 diabetes mellitus Flu vaccine need Hx: UTI (urinary tract infection) Malaise and fatigue Allergies Dysuria Blood glucose elevated Dry skin dermatitis Musculoskeletal back pain Venous insufficiency of both lower extremities Wears glasses Post-menopausal Marijuana use Injury of back Restless legs History of diverticulitis Gastric reflux Former smoker BiPAP (biphasic positive airway pressure) dependence Leg cramps History of edema History of stress test History of echocardiogram Cardiology follow-up encounter Health care maintenance Insomnia Asthma exacerbation Scoliosis Essential hypertension Family history of coronary artery disease Epigastric abdominal tenderness Sinusitis Chest congestion Routine health maintenance History of gallstones Back problem Arthritis Diverticulitis Barretts esophagus Depression (emotion) Morbid obesity with BMI of 40.0-44.9, adult Anxiety Hypothyroidism Respiratory insufficiency Hyperlipemia Surgical History History of thoracic surgery History of cholecystectomy ( 1998) History of hysterectomy ( 1998) History of colonoscopy History of esophagogastroduodenosco py (EGD) ( 2015) Family History Sister CAD (coronary artery disease) Thyroid disorder Brother CAD (coronary artery disease) Heart disease Myocardial infarction Alcoholism Angina at rest Mother Diabetes Myocardial infarction Father Hypertension Heart disease Myocardial infarction Angina at rest Thyroid disorder Grandfather Alcoholism Social History household members: none Smoking Status: Former smoker (more content not included)... Normal [facility] Thyroid Stim Hormone (TSH)on 05-02-2024 TSH 0.850 uIU/mL Normal 0.358-3.740 [facility] Comment on above: Performed By: #### L 100.0100, L501.9520, L500.2500 ####[facility] [address] [place], [address] Thyroidon 04-22-2024 Thyroid [facility] Imaging Services [address] [place], [place] [address] Thyroid MR#: [id number] Acct: [id number] Name: CULLEN CUEVA Rep #: [id number] : 1955 F 69 From: Ad wan MD PCP: Dr. Joseph Smyth MD Status: REG CLI Study: Thyroid Date of Exam: 04/22/24 Exam# [id number] Ordering Dr: Katelynn Dye [id number] STUDY: THYROID ULTRASOUND REASON FOR EXAM: Female, 69 years old. Difficulty swallowing TECHNIQUE: Ultrasound evaluation of the thyroid was performed with real-time and static hernandez-scale imaging. COMPARISON: None. FINDINGS: RIGHT LOBE: The right lobe of the thyroid gland measures 3.2 cm x 1.1 cm x 1.3 cm. There is a heterogeneous echotexture. There are no demonstrated solid, cystic or complex lesions. LEFT LOBE: The left lobe of the thyroid gland measures 2.9 cm x 1.1 cm x 1 cm. There is a heterogeneous echotexture. There are no demonstrated solid, cystic or complex lesions. ISTHMUS: The isthmus measures 2 mm. The regional lymph nodes are normal. US/Thyroid IMPRESSION: Heterogeneous echotexture of both lobes. No localized nodule is seen. Electronically Signed: Ad Conner MD at 13:16 EST , CC: HILARY Dye; Dr. Joseph Smyth MD Safety Associate: Signed Normal [facility] Internal Medicine Office Vis kate 04-15-2024 Internal Medicine Office Visit [facility] [place], [place] [address] OFFICE VISIT Date of Service: 04/15/24 MR#: [id number] Acct: [id number] Name: CULLEN CUEVA Rep #: [id number] : 1955 Provider: HILARY el Age/Sex: 69/F [place] [facility] Status: Signed Intake Vital Signs 02/01/24 09:21 04/15/24 09:03 04/15/24 09:54 Height 5 ft 7 in 5 ft 7 in Weight: 292 lb 305 lb BMI 45.7 47.7 BP 152/86 H 160/90 H 142/78 H Blood Pressure Location Lt brachial Lt brachial Lt brachial Position Sitting Sitting Respiration 17 16 Pulse 80 72 Pulse Source Monitor Monitor Temp 97.8 F 97.3 F L Temp Source Temporal Temporal Pulse Oximetry (%) 98 94 Oxygen Delivery Method room air room air Comment recheck Intake Visit Reasons: TROUBLE SLEEPING / MEMORY ISSUES Chief Complaint: TROUBLE SLEEPING/MEMORY ISSUES Is patient in pain?: Yes (MACEDO; RIGHT NECK ) Pain scale (1-10): 5 Allergies pravastatin (From Pravachol) Allergy (Mild, Verified 04/15/24 08:59) itching ketoprofen (From Orudis) Allergy (Verified 04/15/24 08:59) Nausea/Vom/Diarrhea hydrochlorothiazide (From Dyazide) Adverse Reaction (Intermediate, Verified 04/15/24 08:59) Other triamterene (From Dyazide) Adverse Reaction (Intermediate, Verified 04/15/24 08:59) Other Medications ???Medication ???Instructions ???Recorded ???Confirmed ???Type calcium carbonate 1,000 mg PO DAILY 06/22/20 04/15/24 History cholecalciferol (vitamin D3) 25 2,000 unit PO DAILY 06/22/20 04/15/24 History mcg (1,000 unit) chewable tablet mecobalamin (vitamin B12) 5,000 5,000 mcg PO DAILY SUPPLEMENT 12/05/20 04/15/24 History mcg disintegrating tablet triamcinolone acetonide 0.1 % 1 applic topical BID PRN rash 08/29/22 04/15/24 Rx topical cream #453.6 grams albuterol sulfate 90 mcg/actuation 2 - 3 puff inhalation Q6H PRN 10/22/22 04/15/24 Rx aerosol inhaler shortness of breath or wheezing #8.5 grams tiotropium bromide 1.25 2 puff inhalation DAILY PRN SOB 02/27/23 04/15/24 History mcg/actuation mist for inhalation (Spiriva Respimat) budesonide-formoterol HFA 160 2 puff inhalation BID PRN ASTHMA 04/30/23 04/15/24 History mcg-4.5 mcg/actuation aerosol inhaler (Symbicort) montelukast 10 mg tablet 10 mg PO QHS PRN ALLERGIES 10/30/23 04/15/24 History (Singulair) pramipexole 0.25 mg tablet 0.25 - 0.75 mg (1 - 3 x 0.25 mg) 10/30/23 04/15/24 Rx PO QHS RLS #90 tabs trazodone 50 mg tablet 150 mg (3 x 50 mg) PO QHS PRN 10/30/23 04/15/24 Rx Sleep 3 months #240 tabs compress.stocking,knee,r eg,lrg #2 ea 11/02/23 04/15/24 Rx fluoxetine 40 mg capsule 40 mg PO DAILY #90 caps 01/07/24 04/15/24 Rx rosuvastatin 40 mg tablet (Crestor) 40 mg PO DAILY #90 tabs 01/07/24 04/15/24 Rx omeprazole 40 mg capsule,delayed 40 mg PO DAILY #90 caps 01/08/24 04/15/24 Rx release levothyroxine 175 mcg tablet 175 mcg PO DAILY #90 tabs 02/08/24 04/15/24 Rx zolpidem 5 mg tablet 5 mg PO QHS PRN insomnia #30 tabs 03/15/24 04/15/24 Rx Have you fallen in the past year?: No PFSH Medical History Chronic back pain Borderline type 2 diabetes mellitus Flu vaccine need Hx: UTI (urinary tract infection) Malaise and fatigue Allergies Dysuria Blood glucose elevated Dry skin dermatitis Musculoskeletal back pain Venous insufficiency of both lower extremities Wears glasses Post-menopausal Marijuana use Injury of back Restless legs History of diverticulitis Gastric reflux Former smoker BiPAP (biphasic positive airway pressure) dependence Leg cramps History of edema History of stress test History of echocardiogram Cardiology follow-up encounter Health care maintenance Insomnia Asthma exacerbation Scoliosis Essential hypertension Family history of coronary artery disease Epigastric abdominal tenderness Sinusitis Chest congestion Routine health maintenance History of gallstones Back problem Arthritis Diverticulitis Barretts esophagus Depression (emotion) Morbid obesity with BMI of 40.0-44.9, adult Anxiety Hypothyroidism Respiratory insufficiency Hyperlipemia Surgical History History of thoracic surgery History of cholecystectomy ( 1998) History of hysterectomy ( 1998) History of colonoscopy History of esophagogastroduodenosco py (EGD) ( 2015) Family History Sister CAD (coronary artery disease) Thyroid disorder Brother CAD (coronary artery disease) Heart disease Myocardial infarction Alcoholism Angina at rest Mother Diabetes Myocardial infarction Father Hypertension Heart disease Myocardial infarction Angina at rest Thyroid disorder Grandfather Alcoholism Social History (more content not included)... Normal [facility] MR Pancreas WO and W contras t Faye 04-06-2024 These images are not reportable by radiology and will not be interpreted by Radiologists. IMAGING Breast Limited Unilateralon 03-10-2024 Breast Limited Unilateral [facility] Imaging Services [address] [place], [place] [address] Breast Limited Unilateral MR#: [id number] Acct: [id number] Name: CULLEN CUEVA Rep #: [id number] : 1955 F 68 From: Ad wan MD PCP: Dr. Joseph Smyth MD Status: REG [facility] Study: Breast Limited Unilateral Date of Exam: Exam# [id number] Ordering Dr: Joseph Smyth MD [id number] STUDY: ULTRASOUND BREAST - LEFT REASON FOR EXAM: Female, 68 years old. Abnormal mammogram. TECHNIQUE: Axial and longitudinal images of the LEFT breast were performed with a high resolution ultrasound transducer. # OF IMAGES: 68 COMPARISON: Comparison with prior mammogram dated March 03, 2024. FINDINGS: LEFT Breast: The upper outer quadrant of the left breast was examined with ultrasound. There is a 7 mm x 4 mm x 3 mm cyst at the 12:00 position of the breast at 5 cm from nipple. A similar-appearing cyst measuring 5 mm x 5 mm x 3 mm are seen adjacent. US/Breast Limited Unilateral IMPRESSION: 2 cysts are seen. ASSESSMENT CATEGORY: BIRADS Category 2: Benign. A letter regarding these results will be sent to the patient by the facility within 30 days. Electronically Signed: Ad Conner MD at 12:12 EDT Reading Location ID and State: [facility] / [place] , Service support , CC: Dr. Joseph Smyth MD Safety Associate: Signed Normal [facility] Dexa Bone Density Studyon Dexa Bone Density Study [facility] Imaging Services [address] [place] [address] Dexa Bone Density Study MR#: [id number] Acct: [id number] Name: CULLEN CUEVA Rep #: [id number] : 1955 F 68 From: Ad wan MD PCP: Dr. Joseph Smyth MD Status: [facility] Study: Dexa Bone Density Study Date of Exam: 03/03/24 Exam# [id number] Ordering Dr: Joseph Smyth MD [id number] STUDY: DUAL ENERGY X-RAY ABSORPTIOMETRY / DXA REASON FOR EXAM: Female, 68 years old. Post menopausal TECHNIQUE: Bone Mineral Density (BMD) measurements of lumbar spine and bilateral hips were obtained. COMPARISON: Comparison is made with prior study dated August 15, 2020. FINDINGS: Lumbar Spine (L1-L4): g/cm2 (1.052) / T-score (0.3) / Z-score (2.3) Findings are suggestive of normal bone density with a low fracture risk. Left Femur Total: g/cm2 (1.060) / T-score (1.0) / Z-score (2.4) Left Femoral Neck: g/cm2 (0.878) / T-score (0.3) / Z-score (2.0) Right Femur Total: g/cm2 (1.075) / T-score (1.1) / Z-score (2.5) Right Femoral Neck: g/cm2 (0.904) / T-score (0.5) / Z-score (2.2) The T-Scores on the most recent prior examination were: Lumbar Spine (L1-L4): There has been worsening of bone density since the previous examination. Left Femur Total: which represents a worsening of 4.4%. Right Femur Total: which represents a worsening of 2.5%. BD/Dexa Bone Density Study IMPRESSION: The patient is considered normal as outlined below according to World Kt Organization (WHO) criteria with a low fracture risk. There has been worsening of bone density since the previous examination. Reference Information: The T-score is the number of standard deviations above or below the standard which is normal for young adults at their peak bone mineral density. The World Health Organization (WHO) interprets the T-scores as follows: Above -1 Normal bone density Between -1 and -2.5 Osteopenia Equal to / or below -2.5 Osteoporosis As a practical clinical guideline, osteopenia may be graded as follows: Mild -1 through -1.5 Moderate -1.6 through -2.0 Severe -2.1 through -2.4 The Z-score is the number of standard deviations above or below age-matched controls. A Z-score of less than -1.5 would be considered abnormal. References: 1. NIH Osteoporosis and Related Bone Diseases www osteo.org 2. International Society for Clinical Densitometry www iscd.org 3. National Osteoporosis Foundation www nof.org Electronically Signed: Ad Conner MD at 11:12 EDT , CC: Dr. Joseph Smyth MD Safety Associate: Signed Normal [facility] SCRN MAMM (CAD)W/HANANE BILATo n 03-03-2024 SCRN MAMM (CAD)W/HANANE BILAT [facility] Imaging Services [address] [place], [place] [address] SCRN MAMM (CAD)W/HANANE BILAT MR#: [id number] Acct: [id number] Name: CULLEN CUEVA Rep #: [id number] : 1955 F 68 From: Ad wan MD PCP: Dr. Joseph Smyth MD Status: REG [facility] Study: SCRN MAMM (CAD)W/HANANE BILAT Date of Exam: 02/13 03/08 Exam# [id number] Ordering Dr: Joseph Smyth MD [id number] MAMMOGRAPHY - BILATERAL SCREENING REASON FOR EXAM: Female, 68 years old. Routine annual screening examination. PERTINENT HISTORY: Non-contributory. TECHNIQUE: Digital bilateral breast hanane (3D mammographic acquisition) in the CC and MLO projections. 2-D mediolateral oblique (MLO) and craniocaudad (CC) views of both breasts were obtained. CAD: Full Field Digital Mammography with Computer Added Detection was performed. COMPARISON: Comparison is made with prior study September 25, 2022. FINDINGS: Breast Composition: There are scattered areas of fibroglandular density. There is a 9.1 mm x 8 mm nodular density in the upper central left breast. Dilated correlation with ultrasound recommended. Stable small benign-appearing bilateral axillary lymph nodes. No other significant abnormalities are identified. BI/SCRN MAMM (CAD)W/HANANE BILAT IMPRESSION: 9.1 mm x 8 mm nodular density in the upper central left breast. Correlation with ultrasound recommended. ASSESSMENT CATEGORY: BIRADS Category 0: Incomplete. Need additional imaging evaluation. A letter regarding these results will be sent to the patient by the facility within 30 days. Approximately 10% of breast cancers are not detected by mammography. A normal mammogram should not delay biopsy of a clinically suspicious abnormality. [id number] Electronically Signed: Ad Conner MD at 11:08 EDT Reading Location ID and State: [facility] / [place] , Service support , CC: Dr. Joseph Smyth MD Safety Associate: Signed Normal [facility] CBC W/Diff, Automatedon 01-13 Absolute Lymph 3.20 X10 3/uL Normal 0.83-4.51 [facility] Comment on above: Performed By: #### L 500.4050, L100.0100, L501.9520 ####[facility] [address] [place], [address] Absolute Neut 5.9 X10 3/uL Normal 2.0-7.7 [facility] Comment on above: Performed By: #### L 500.4050, L100.0100, L501.9520 ####[facility] [address] [place], [address] Basophils/100 WBC (Bld) 0.9 % Normal 0-1 [facility] Comment on above: Performed By: #### L 500.4050, L100.0100, L501.9520 ####[facility] [address] [place], [address] Eosinophils/100 WBC (Bld) 3.2 % Normal 0-5 [facility] Comment on above: Performed By: #### L 500.4050, L100.0100, L501.9520 ####[facility] [address] [place], [address] Erythrocyte distribution width (RBC) [Ratio] 13.2 % Normal 11.6-14.6 [facility] Comment on above: Performed By: #### L 500.4050, L100.0100, L501.9520 ####[facility] [address] [place], [address] Hematocrit (Bld) [Volume fraction] 44.4 % Normal 37-47 [facility] Comment on above: Performed By: #### L 500.4050, L100.0100, L501.9520 ####[facility] [address] [place], [address] Hemoglobin (Bld) [Mass/Vol] 14.6 g/dL Normal 12.0-15.0 [facility] Comment on above: Performed By: #### L 500.4050, L100.0100, L501.9520 ####[facility] [address] [place], [address] IG% 0.300 Normal 0.0-0.9 [facility] Comment on above: Result Comment: IG% - Immature Granulocytes (promyelocytes, myelocytes and metamyelocytes) > 1% indicates that a LEFT SHIFT is Present. Performed By: #### L 500.4050, L100.0100, L501.9520 ####[facility] [address] [place], [address] Lymphocytes/100 WBC (Bld) 30.7 % Normal 19-41 [facility] Comment on above: Performed By: #### L 500.4050, L100.0100, L501.9520 ####[facility] [address] [place], [address] MCH (RBC) [Entitic mass] 29.5 pg Normal 27.0-32.0 [facility] Comment on above: Performed By: #### L 500.4050, L100.0100, L501.9520 ####[facility] [address] [place], [address] MCHC (RBC) [Mass/Vol] 32.9 g/dL Normal 32-36 [facility] Comment on above: Performed By: #### L 500.4050, L100.0100, L501.9520 ####[facility] [address] [place], [address] MCV (RBC) [Entitic vol] 89.7 fL Normal 81-99 [facility] Comment on above: Performed By: #### L 500.4050, L100.0100, L501.9520 ####[facility] [address] [place], [address] Monocytes/100 WBC (Bld) 8.5 % Normal 0-10 [facility] Comment on above: Performed By: #### L 500.4050, L100.0100, L501.9520 ####[facility] [address] [place], [address] Neutrophils/100 WBC (Bld) 56.4 % Normal 47-70 [facility] Comment on above: Performed By: #### L 500.4050, L100.0100, L501.9520 ####[facility] [address] [place], [address] Nucleated RBC (Bld) [#/Vol] 0 10*3/uL Normal 0-5 [facility] Comment on above: Performed By: #### L 500.4050, L100.0100, L501.9520 ####[facility] [address] [place], [address] Platelet mean volume (Bld) [Entitic vol] 9.6 fL Normal 6.2-12.0 [facility] Comment on above: Performed By: #### L 500.4050, L100.0100, L501.9520 ####[facility] [address] [place], [address] Platelets (Bld) [#/Vol] 374 10*3/uL Normal 150-450 [facility] Comment on above: Performed By: #### L 500.4050, L100.0100, L501.9520 ####[facility] [address] [place], [address] RBC (Bld) [#/Vol] 4.95 10*6/uL Normal 4.2-5.4 [facility] Comment on above: Performed By: #### L 500.4050, L100.0100, L501.9520 ####[facility] [address] [place], [address] RDW SD 43.2 fl Normal 35.1-43.9 [facility] Comment on above: Performed By: #### L 500.4050, L100.0100, L501.9520 ####[facility] [address] [place], [address] WBC (Bld) [#/Vol] 10.4 10*3/uL Normal 4.4-11.0 [facility] Comment on above: Performed By: #### L 500.4050, L100.0100, L501.9520 ####[facility] [address] [place], [address] Comprehensive Metabolic Prof [facility] 02-01-2024 Albumin [Mass/Vol] 3.5 g/dL Normal 3.2-5.0 [facility] Comment on above: Performed By: #### L 500.4050, L100.0100, L501.9520 ####[facility] [address] [place], [address] Albumin/Globulin [Mass ratio] 0.9 {ratio} Normal 0.9-2.4 [facility] Comment on above: Performed By: #### L 500.4050, L100.0100, L501.9520 ####[facility] [address] [place], [address] ALK P 109 U/L Normal 45-117 [facility] Comment on above: Performed By: #### L 500.4050, L100.0100, L501.9520 ####[facility] [address] [place], [address] ALT [Catalytic activity/Vol] 29 U/L Normal 13-56 [facility] Comment on above: Performed By: #### L 500.4050, L100.0100, L501.9520 ####[facility] [address] [place], [address] AST [Catalytic activity/Vol] 20 U/L Normal 15-37 [facility] Comment on above: Performed By: #### L 500.4050, L100.0100, L501.9520 ####[facility] [address] [place], [address] Bilirubin [Mass/Vol] 0.40 mg/dL Normal 0.20-1.00 [facility] Comment on above: Result Comment: For patients on eltrombopag therapy, use of Dimension [place] TBIL is not recommended. Performed By: #### L 500.4050, L100.0100, L501.9520 ####[facility] [address] [place], [address] BUN/CRE 13.6 RATIO Normal 10-20 [facility] Comment on above: Performed By: #### L 500.4050, L100.0100, L501.9520 ####[facility] [address] [place], [address] CA,Total 8.9 mg/dL Normal 8.5-10.1 [facility] Comment on above: Performed By: #### L 500.4050, L100.0100, L501.9520 ####[facility] [address] [place], [address] Chloride [Moles/Vol] 105 mmol/L Normal 98-107 [facility] Comment on above: Performed By: #### L 500.4050, L100.0100, L501.9520 ####[facility] [address] [place], [address] CO2 [Moles/Vol] 23.0 mmol/L Normal 21.0-32.0 [facility] Comment on above: Performed By: #### L 500.4050, L100.0100, L501.9520 ####[facility] [address] [place], [address] Creatinine [Mass/Vol] 0.88 mg/dL Normal 0.55-1.02 [facility] Comment on above: Result Comment: The validity of the calculated GFR GFRAA in patients over 70 years has not been determined. Clinical correlation is essential. Performed By: #### L 500.4050, L100.0100, L501.9520 ####[facility] [address] [place], [address] EST GFR - AA 82 mL/min Normal >60 [facility] Comment on above: Result Comment: Afri can [place] GFR Calc Performed By: #### L 500.4050, L100.0100, L501.9520 ####[facility] [address] [place], [address] GAP 9 Normal 5-15 [facility] Comment on above: Performed By: #### L 500.4050, L100.0100, L501.9520 ####[facility] [address] [place], [address] GFR/1.73 sq M.predicted among non-blacks MDRD (S/P/Bld) [Vol rate/Area] 67 mL/min/{1.73_m2} Normal >60 [facility] Comment on above: Result Comment: Non- GFR Calc Performed By: #### L 500.4050, L100.0100, L501.9520 ####[facility] [address] [place], [address] Globulin (S) [Mass/Vol] 4.1 g/dL Normal 2.2-4.2 [facility] Comment on above: Performed By: #### L 500.4050, L100.0100, L501.9520 ####[facility] [address] [place], [address] Glucose [Mass/Vol] 121 mg/dL High 74-106 [facility] Comment on above: Result Comment: Fast ing Glucose result from 100 to 125 mg/dL suggests IMPAIRED HOMEOSTASIS per A.D.A. criteria. Performed By: #### L 500.4050, L100.0100, L501.9520 ####[facility] [address] [place], [address] Potassium [Moles/Vol] 3.8 mmol/L Normal 3.5-5.1 [facility] Comment on above: Performed By: #### L 500.4050, L100.0100, L501.9520 ####[facility] [address] [place], [address] Sodium [Moles/Vol] 137 mmol/L Normal 136-145 [facility] Comment on above: Performed By: #### L 500.4050, L100.0100, L501.9520 ####[facility] [address] [place], [address] T PROT 7.6 g/dL Normal 6.4-8.2 [facility] Comment on above: Performed By: #### L 500.4050, L100.0100, L501.9520 ####[facility] [address] [place], [address] Urea nitrogen [Mass/Vol] 12 mg/dL Normal 7-18 [facility] Comment on above: Performed By: #### L 500.4050, L100.0100, L501.9520 ####[facility] [address] [place], [address] Internal Medicine Office Vis itofabiano 02-01-2024 Internal Medicine Office Visit [facility] [address] [place], [place] [address] OFFICE VISIT Date of Service: 02/01/24 MR#: [id number] Acct: [id number] Name: CULLEN CUEVA Rep #: [id number] : 1955 Provider: Dr. Joseph jane MD Age/Sex: 68/F Location[facility] Status: Signed Intake Vital Signs 10/30/23 10:35 02/01/24 09:21 Height 5 ft 7 in 5 ft 7 in Weight: 297 lb 292 lb BMI 46.5 45.7 BP 142/90 H 152/86 H Blood Pressure Location Lt brachial Lt brachial Position Sitting Sitting Respiration 16 17 Pulse 74 80 Pulse Source Monitor Monitor Temp 97.8 F 97.8 F Temp Source Temporal Temporal Pulse Oximetry (%) 97 98 Oxygen Delivery Method room air room air Intake Visit Reasons: 3 M FU Chief Complaint: 3 M FU Is patient in pain?: Yes (1 headache contstant ) Allergies pravastatin (From Pravachol) Allergy (Mild, Verified 02/01/24 09:18) itching ketoprofen (From Orudis) Allergy (Verified 02/01/24 09:18) Nausea/Vom/Diarrhea hydrochlorothiazide (From Dyazide) Adverse Reaction (Intermediate, Verified 02/01/24 09:18) Other triamterene (From Dyazide) Adverse Reaction (Intermediate, Verified 02/01/24 09:18) Other Medications ???Medication ???Instructions ???Recorded ???Confirmed ???Type calcium carbonate 1,000 mg PO DAILY 06/22/20 02/01/24 History cholecalciferol (vitamin D3) 25 2,000 unit PO DAILY 06/22/20 02/01/24 History mcg (1,000 unit) chewable tablet mecobalamin (vitamin B12) 5,000 5,000 mcg PO DAILY SUPPLEMENT 12/05/20 02/01/24 History mcg disintegrating tablet triamcinolone acetonide 0.1 % 1 applic topical BID PRN rash 08/29/22 02/01/24 Rx topical cream #453.6 grams albuterol sulfate 90 mcg/actuation 2 - 3 puff inhalation Q6H PRN 10/22/22 02/01/24 Rx aerosol inhaler shortness of breath or wheezing #8.5 grams tiotropium bromide 1.25 2 puff inhalation DAILY PRN SOB 02/27/23 02/01/24 History mcg/actuation mist for inhalation (Spiriva Respimat) budesonide-formoterol HFA 160 2 puff inhalation BID PRN ASTHMA 04/30/23 02/01/24 History mcg-4.5 mcg/actuation aerosol inhaler (Symbicort) levothyroxine 175 mcg tablet 175 mcg PO DAILY #90 tabs 10/30/23 02/01/24 Rx montelukast 10 mg tablet 10 mg PO QHS PRN ALLERGIES 10/30/23 02/01/24 History (Singulair) pramipexole 0.25 mg tablet 0.25 - 0.75 mg (1 - 3 x 0.25 mg) 10/30/23 02/01/24 Rx PO QHS RLS #90 tabs trazodone 50 mg tablet 150 mg (3 x 50 mg) PO QHS PRN 10/30/23 02/01/24 Rx Sleep 3 months #240 tabs compress.stocking,knee,r eg,lrg #2 ea 11/02/23 02/01/24 Rx fluoxetine 40 mg capsule 40 mg PO DAILY #90 caps 01/07/24 02/01/24 Rx rosuvastatin 40 mg tablet (Crestor) 40 mg PO DAILY #90 tabs 01/07/24 02/01/24 Rx omeprazole 40 mg capsule,delayed 40 mg PO DAILY #90 caps 01/08/24 02/01/24 Rx release zolpidem 5 mg tablet 5 mg PO QHS PRN insomnia #30 tabs 01/08/24 02/01/24 Rx Have you fallen in the past year?: No PFSH Medical History Chronic back pain Borderline type 2 diabetes mellitus Flu vaccine need Hx: UTI (urinary tract infection) Malaise and fatigue Allergies Dysuria Blood glucose elevated Dry skin dermatitis Musculoskeletal back pain Venous insufficiency of both lower extremities Wears glasses Post-menopausal Marijuana use Injury of back Restless legs History of diverticulitis Gastric reflux Former smoker BiPAP (biphasic positive airway pressure) dependence Leg cramps History of edema History of stress test History of echocardiogram Cardiology follow-up encounter Health care maintenance Insomnia Asthma exacerbation Scoliosis Essential hypertension Family history of coronary artery disease Epigastric abdominal tenderness Sinusitis Chest congestion Routine health maintenance History of gallstones Back problem Arthritis Diverticulitis Barretts esophagus Depression (emotion) Morbid obesity with BMI of 40.0-44.9, adult Anxiety Hypothyroidism Respiratory insufficiency Hyperlipemia Surgical History History of thoracic surgery History of cholecystectomy ( 1998) History of hysterectomy ( 1998) History of colonoscopy History of esophagogastroduodenosco py (EGD) ( 2015) Family History Sister CAD (coronary artery disease) Thyroid disorder Brother CAD (coronary artery disease) Heart disease Myocardial infarction Alcoholism Angina at rest Mother Diabetes Myocardial infarction Father Hypertension Heart disease Myocardial infarction Angina at rest Thyroid disorder Grandfather Alcoholism Social History household members: none Smoking Status: (more content not included)... Normal [facility] Thyroid Stim Hormone (TSH)on 02-01-2024 TSH 2.810 uIU/mL Normal 0.358-3.740 [facility] Comment on above: Performed By: #### L 500.4050, L100.0100, L501.9520 ####[facility] [address] [place], [address] Albumin/Creatinineon 024 Albumin/Creatinine DL <= 20 mg/L (U) [Mass ratio] Normal [facility] Comment on above: Result Comment: One or more analytes used in this calculation is outside of the analytical measurement range. Calculation cannot be performed. Performed By: #### 1 4959-1 #### HIWOT Patterson ([id number]) [facility] ([facility]) [address] [place] [address] Albumin/Creatinine DL <= 20 mg/L (U) [Mass ratio]on 01-07-2024 Albumin DL <= 20 mg/L (U) [Mass/Vol] mg/dL Normal Not established [facility] Comment on above: Performed By: #### 1 4959-1 #### HIWOT Patterson ([id number]) [facility] ([facility]) [address] [place] [address] Creatinine (U) [Mass/Vol] 145.2 mg/dL Normal 20.0-320.0 [facility] Comment on above: Performed By: #### 1 4959-1 #### HIWOT Patterson ([id number]) [facility] ([facility]) [address] [place] [address] C reactive proteinon 024 CRP High sensitivity method [Mass/Vol] 2.7 mg/L High <1.0 [facility] Comment on above: Order Comment: [facility] Research participant; insurance: Research Diagnosis code Z00.6 Award: [id number] IRB #: [id number] Performed By: #### 2 7298-9 #### HIWOT Patterson ([id number]) [facility] ([facility]) [address] [place] [address] CBC W Auto Differential pane l (Bld)on 01-07-2024 Basophils (Bld) [#/Vol] 0.02 x10*3/uL Normal 0.00-0.10 [facility] Comment on above: Order Comment: [facility] Research participant; insurance: Research Diagnosis code Z00.6 Award: [id number] IRB #: [id number] Performed By: #### 5 7021-8 #### HIWOT Patterson ([id number]) [facility] ([facility]) [address] [place] [address] Basophils/100 WBC (Bld) 0.3 % Normal 0.0-2.0 [facility] Comment on above: Order Comment: [facility] Research participant; insurance: Research Diagnosis code Z00.6 Award: [id number] IRB #: [id number] Performed By: #### 5 7021-8 #### HIWOT Patterson ([id number]) [facility] ([facility]) [address] [place] [address] Eosinophils (Bld) [#/Vol] 0.07 x10*3/uL Normal 0.00-0.70 [facility] Comment on above: Order Comment: [facility] Research participant; insurance: Research Diagnosis code Z00.6 Award: [id number] IRB #: [id number] Performed By: #### 5 7021-8 #### HIWOT Patterson ([id number]) [facility] ([facility]) [address] [place] [address] Eosinophils/100 WBC (Bld) 1.0 % Normal 0.0-6.0 [facility] Comment on above: Order Comment: [facility] Research participant; insurance: Research Diagnosis code Z00.6 Award: [id number] IRB #: [id number] Performed By: #### 5 7021-8 #### HIWOT Patterson ([id number]) [facility] ([facility]) [address] [place] [address] Erythrocyte distribution width (RBC) [Ratio] 13.3 % Normal 11.5-14.5 [facility] Comment on above: Order Comment: [facility] Research participant; insurance: Research Diagnosis code Z00.6 Award: [id number] IRB #: [id number] Performed By: #### 5 7021-8 #### HIWOT Patterson ([id number]) [facility] ([facility]) [address] [place] [address] 54790 Hematocrit (Bld) [Volume fraction] 44.9 % Normal 36.0-46.0 [facility] Comment on above: Order Comment: [facility] Research participant; insurance: Research Diagnosis code Z00.6 Award: [id number] IRB #: [id number] Performed By: #### 5 7021-8 #### HIWOT Patterson ([id number]) [facility] ([facility]) [address] [place] [address] 41034 Hemoglobin (Bld) [Mass/Vol] 14.6 g/dL Normal 12.0-16.0 [facility] Comment on above: Order Comment: [facility] Research participant; insurance: Research Diagnosis code Z00.6 Award: [id number] IRB #: [id number] Performed By: #### 5 7021-8 #### HIWOT Patterson ([id number]) [facility] ([facility]) [address] [place] [address] 66035 Immature granulocytes (Bld) [#/Vol] 0.03 x10*3/uL Normal 0.00-0.70 [facility] Comment on above: Order Comment: [facility] Research participant; insurance: Research Diagnosis code Z00.6 Award: [id number] IRB #: [id number] Performed By: #### 5 7021-8 #### HIWOT Patterson ([id number]) [facility] ([facility]) [address] [place] [address] 91008 Immature granulocytes/100 WBC (Bld) 0.4 % Normal 0.0-0.9 [facility] Comment on above: Order Comment: [facility] Research participant; insurance: Research Diagnosis code Z00.6 Award: [id number] IRB #: [id number] Result Comment: Deonna ture Granulocyte Count (IG) includes promyelocytes, myelocytes and metamyelocytes but does not include bands. Percent differential counts (%) should be interpreted in the context of the absolute cell counts (cells/UL). Performed By: #### 5 7021-8 #### HIWOT Patterson ([id number]) [facility] ([facility]) [address] [place] [address] 42315 Lymphocytes (Bld) [#/Vol] 1.71 x10*3/uL Normal 1.20-4.80 [facility] Comment on above: Order Comment: [facility] Research participant; insurance: Research Diagnosis code Z00.6 Award: [id number] IRB #: [id number] Performed By: #### 5 7021-8 #### HIWOT Patterson ([id number]) [facility] ([facility]) [address] [place] [address] 67368 Lymphocytes/100 WBC (Bld) 25.2 % Normal 13.0-44.0 [facility] Comment on above: Order Comment: [facility] Research participant; insurance: Research Diagnosis code Z00.6 Award: [id number] IRB #: [id number] Performed By: #### 5 7021-8 #### HIWOT Patterson ([id number]) [facility] ([facility]) [address] [place] [address] 63083 MCH (RBC) [Entitic mass] 29.4 pg Normal 26.0-34.0 [facility] Comment on above: Order Comment: [facility] Research participant; insurance: Research Diagnosis code Z00.6 Award: [id number] IRB #: [id number] Performed By: #### 5 7021-8 #### HIWOT Patterson ([id number]) [facility] ([facility]) [address] [place] [address] 15832 MCHC (RBC) [Mass/Vol] 32.5 g/dL Normal 32.0-36.0 [facility] Comment on above: Order Comment: [facility] Research participant; insurance: Research Diagnosis code Z00.6 Award: [id number] IRB #: [id number] Performed By: #### 5 7021-8 #### HIWOT Patterson ([id number]) [facility] ([facility]) [address] [place] [address] 84136 MCV (RBC) [Entitic vol] 90 fL Normal 80-[address] [facility] Comment on above: Order Comment: [facility] Research participant; insurance: Research Diagnosis code Z00.6 Award: [id number] IRB #: [id number] Performed By: #### 5 7021-8 #### HIWOT Patterson ([id number]) [facility] ([facility]) [address] [place] [address] 09524 Monocytes (Bld) [#/Vol] 0.61 x10*3/uL Normal 0.10-1.00 [facility] Comment on above: Order Comment: [facility] Research participant; insurance: Research Diagnosis code Z00.6 Award: [id number] IRB #: [id number] Performed By: #### 5 7021-8 #### HIWOT Patterson ([id number]) [facility] ([facility]) [address] [place] [address] 96856 Monocytes/100 WBC (Bld) 9.0 % Normal 2.0-10.0 [facility] Comment on above: Order Comment: [facility] Research participant; insurance: Research Diagnosis code Z00.6 Award: [id number] IRB #: [id number] Performed By: #### 5 7021-8 #### HIWOT Patterson (10529) [facility] ([facility]) [address] [place] [address] 01310 Neutrophils (Bld) [#/Vol] 4.34 x10*3/uL Normal 1.20-7.70 [facility] Comment on above: Order Comment: [facility] Research participant; insurance: Research Diagnosis code Z00.6 Award: [id number] IRB #: [id number] Result Comment: Perc ent differential counts (%) should be interpreted in the context of the absolute cell counts (cells/uL). Performed By: #### 5 7021-8 #### HIWOT Patterson ([id number]) [facility] ([facility]) [address] [place] [address] 51948 Neutrophils/100 WBC (Bld) 64.1 % Normal 40.0-80.0 [facility] Comment on above: Order Comment: [facility] Research participant; insurance: Research Diagnosis code Z00.6 Award: [id number] IRB #: [id number] Performed By: #### 5 7021-8 #### HIWOT Patterson ([id number]) [facility] ([facility]) [address] [place] [address] 36967 Nucleated RBC/100 WBC (Bld) [Ratio] 0.0 /100 WBCs Normal 0.0-0.0 [facility] Comment on above: Order Comment: [facility] Research participant; insurance: Research Diagnosis code Z00.6 Award: [id number] IRB #: [id number] Performed By: #### 5 7021-8 #### HIWOT Patterson (55773) [facility] ([facility]) [address] [place] [address] 91286 Platelets (Bld) [#/Vol] 320 x10*3/uL Normal 150-450 [facility] Comment on above: Order Comment: [facility] Research participant; insurance: Research Diagnosis code Z00.6 Award: [id number] IRB #: [id number] Performed By: #### 5 7021-8 #### HIWOT Patterson ([id number]) [facility] ([facility]) [address] [place] [address] 44121 RBC (Bld) [#/Vol] 4.97 x10*6/uL Normal 4.00-5.20 [facility] Comment on above: Order Comment: [facility] Research participant; insurance: Research Diagnosis code Z00.6 Award: [id number] IRB #: [id number] Performed By: #### 5 7021-8 #### HIWOT Patterson (32354) [facility] ([facility]) [address] [place] [address] 72420 WBC (Bld) [#/Vol] 6.8 x10*3/uL Normal 4.4-11.3 [facility] Comment on above: Order Comment: [facility] Research participant; insurance: Research Diagnosis code Z00.6 Award: [id number] IRB #: [id number] Performed By: #### 5 7021-8 #### HIWOT Patterson ([id number]) [facility] ([facility]) [address] [place], [place] [address] Calcidiolon 01-07-2024 25-hydroxyvitamin D3 [Mass/Vol] 56 ng/mL Normal 30-100 [facility] Comment on above: Order Comment: [facility] Research participant; insurance: Research Diagnosis code Z00.6 Award: [id number] IRB #: [id number] Performed By: #### 2 7298-9 #### HIWOT Patterson ([id number]) [facility] ([facility]) [address] [place], [place] [address] Coagulation surface inducedo n 01-07-2024 aPTT Coag (PPP) [Time] 33 s Normal 27-38 [facility] Comment on above: Order Comment: [facility] Research participant; insurance: Research Diagnosis code Z00.6 Award: [id number] IRB #: [id number] The APTT is no longer used for monitoring Unfractionated Heparin Therapy. For monitoring Heparin Therapy, use the Heparin Assay. Performed By: #### 1 4979-9 #### HIWOT Patterson ([id number]) [facility] ([facility]) [address] [place], [place] [address] Coagulation tissue factor in ducedon 01-07-2024 PT Coag (PPP) [Time] 12.3 s Normal 9.8-12.8 [facility] Comment on above: Order Comment: [facility] Research participant; insurance: Research Diagnosis code Z00.6 Award: [id number] IRB #: [id number] Performed By: #### 5 902-2 #### HIWOT Patterson (11068) [facility] ([facility]) [address] [place], [place] [address] Comprehensive metabolic 2000 panelon 01-07-2024 Albumin BCP dye [Mass/Vol] 4.3 g/dL Normal 3.4-5.0 [facility] Comment on above: Order Comment: [facility] Research participant; insurance: Research Diagnosis code Z00.6 Award: [id number] IRB #: [id number] Performed By: #### 2 7298-9 #### HIWOT Patterson ([id number]) [facility] ([facility]) [address] [place] [address] 08638 ALP [Catalytic activity/Vol] 99 U/L Normal 33-136 [facility] Comment on above: Order Comment: [facility] Research participant; insurance: Research Diagnosis code Z00.6 Award: [id number] IRB #: [id number] Performed By: #### 2 7298-9 #### HIWOT Patterson ([id number]) [facility] ([facility]) [address] [place] [address] 45847 ALT With P-5'-P [Catalytic activity/Vol] 25 U/L Normal 7-45 [facility] Comment on above: Order Comment: [facility] Research participant; insurance: Research Diagnosis code Z00.6 Award: [id number] IRB #: [id number] Result Comment: Maria Elena ents treated with Sulfasalazine may generate falsely decreased results for ALT. Performed By: #### 2 7298-9 #### HIWOT Patterson ([id number]) [facility] ([facility]) [address] [place] [address] 76084 Anion gap [Moles/Vol] 12 mmol/L Normal 10-20 [facility] Comment on above: Order Comment: [facility] Research participant; insurance: Research Diagnosis code Z00.6 Award: [id number] IRB #: [id number] Performed By: #### 2 7298-9 #### HIWOT Patterson (68910) [facility] ([facility]) [address] [place] [address] 22202 AST With P-5'-P [Catalytic activity/Vol] 22 U/L Normal 9-39 [facility] Comment on above: Order Comment: [facility] Research participant; insurance: Research Diagnosis code Z00.6 Award: [id number] IRB #: [id number] Performed By: #### 2 7298-9 #### HIWOT Patterson (14302) [facility] ([facility]) [address] [place] [address] 22579 Bilirubin [Mass/Vol] 0.6 mg/dL Normal 0.0-1.2 [facility] Comment on above: Order Comment: [facility] Research participant; insurance: Research Diagnosis code Z00.6 Award: [id number] IRB #: [id number] Performed By: #### 2 7298-9 #### HIWOT Patterson (31130) [facility] ([facility]) [address] [place] [address] 37723 Calcium [Mass/Vol] 9.2 mg/dL Normal 8.6-10.6 [facility] Comment on above: Order Comment: [facility] Research participant; insurance: Research Diagnosis code Z00.6 Award: [id number] IRB #: [id number] Performed By: #### 2 7298-9 #### HIWOT Patterson (16933) [facility] ([facility]) [address] [place] [address] 03215 Chloride [Moles/Vol] 100 mmol/L Normal 98-107 [facility] Comment on above: Order Comment: [facility] Research participant; insurance: Research Diagnosis code Z00.6 Award: [id number] IRB #: [id number] Performed By: #### 2 7298-9 #### HIWOT Patterson (21358) [facility] ([facility]) [address] [place] [address] 27013 CO2 [Moles/Vol] 31 mmol/L Normal 21-32 [facility] Comment on above: Order Comment: [facility] Research participant; insurance: Research Diagnosis code Z00.6 Award: [id number] IRB #: [id number] Performed By: #### 2 7298-9 #### HIWOT Patterson (28380) [facility] ([facility]) [address] [place] [address] 79025 Creatinine [Mass/Vol] 0.86 mg/dL Normal 0.50-1.05 [facility] Comment on above: Order Comment: [facility] Research participant; insurance: Research Diagnosis code Z00.6 Award: [id number] IRB #: [id number] Performed By: #### 2 7298-9 #### HIWOT Patterson (09031) [facility] ([facility]) [address] [place] [address] 91554 Glomerular filtration rate/1.73 sq M.predicted 74 mL/min/1.73m*2 Normal >60 [facility] Comment on above: Order Comment: [facility] Research participant; insurance: Research Diagnosis code Z00.6 Award: [id number] IRB #: [id number] Result Comment: Calc ulations of estimated GFR are performed using the 2020 CKD-EPI Study Refit equation without the race variable for the IDMS-Traceable creatinine methods. https://jasn.asnjournals.org/content/early//ASN.2020 571059 Performed By: #### 2 7298-9 #### HIWOT Patterson (69605) [facility] ([facility]) [address] [place] [address] 59262 Glucose [Mass/Vol] 119 mg/dL High 74-99 [facility] Comment on above: Order Comment: [facility] Research participant; insurance: Research Diagnosis code Z00.6 Award: [id number] IRB #: [id number] Performed By: #### 2 7298-9 #### HIWOT Patterson (93379) [facility] ([facility]) [address] [place] [address] 87229 Potassium [Moles/Vol] 4.3 mmol/L Normal 3.5-5.3 [facility] Comment on above: Order Comment: [facility] Research participant; insurance: Research Diagnosis code Z00.6 Award: [id number] IRB #: [id number] Performed By: #### 2 7298-9 #### HIWOT Patterson (79535) [facility] ([facility]) [address] [place] [address] 28476 Protein [Mass/Vol] 7.5 g/dL Normal 6.4-8.2 [facility] Comment on above: Order Comment: [facility] Research participant; insurance: Research Diagnosis code Z00.6 Award: [id number] IRB #: [id number] Performed By: #### 2 7298-9 #### HIWOT Patterson (05915) [facility] ([facility]) [address] [place] [address] 20319 Sodium [Moles/Vol] 139 mmol/L Normal 136-145 [facility] Comment on above: Order Comment: [facility] Research participant; insurance: Research Diagnosis code Z00.6 Award: [id number] IRB #: [id number] Performed By: #### 2 7298-9 #### HIWOT Patterson (32383) [facility] ([facility]) [address] [place] [address] 48333 Urea nitrogen [Mass/Vol] 16 mg/dL Normal 6-23 [facility] Comment on above: Order Comment: [facility] Research participant; insurance: Research Diagnosis code Z00.6 Award: [id number] IRB #: [id number] Performed By: #### 2 7298-9 #### HIWOT Patterson (63992) [facility] ([facility]) [address] [place] [address] 76439 Cystatin C and Glomerular fi ltration rate by Cystatin-based formula panelon 01-07-2024 Cystatin C [Mass/Vol] 1.2 mg/L Normal 0.5-1.2 [facility] Comment on above: Order Comment: [facility] Research participant; insurance: Research Diagnosis code Z00.6 Award: [id number] IRB #: [id number] Result Comment: Perf ormed By: [employer] [address] [place] [address] Habilitative Interventionist: Gael Augustine MD, PhD CLIA Number: [id number] Performed By: #### 2 7298-9 #### HIWOT Patterson (47448) [facility] ([facility]) [address] [place] [address] 85613 Fibrin D-dimer FEUon 024 Fibrin D-dimer FEU (PPP) [Mass/Vol] 385 ng/mL FEU Normal <=500 [facility] Comment on above: Order Comment: [facility] Research participant; insurance: Research Diagnosis code Z00.6 Award: [id number] IRB #: [id number] The D-Dimer assay is reported in ng/mL Fibrinogen Equivalent Units (FEU). The results of this assay should NOT be used for the exclusion of Deep Vein Thrombosis and/or Pulmonary Embolism. Performed By: #### 4 8065-7 #### HIWOT Patterson (47811) [facility] ([facility]) [address] [place], [place] [address] Glomerular filtration rate/1 .73 sq M.predictedon 01-07-2024 GFR/1.73 sq M.predicted Cystatin-based formula (S/P/Bld) [Vol rate/Area] 55 mL/min/BSA Low >=60 [facility] Comment on above: Order Comment: [facility] Research participant; insurance: Research Diagnosis code Z00.6 Award: [id number] IRB #: [id number] Result Comment: INTERPRETIVE INFORMATION: eGFR by Cystatin C eGFR by Cystatin C was calculated using the CKD-EPI equation. Stage Description eGFR Range 1.......Normal or increased eGFR.......90 or Greater 2.......Mildly decreased eGFR..........60-89 3.......Moderately decreased eGFR......30-59 4.......Severely decreased eGFR........15-29 5.......Kidney Failure.................Less than 15 Performed By: [employer] [address] [place] [address] 93963 Habilitative Interventionist: Gael Augustine MD, PhD CLIA Number: [id number] Performed By: #### 2 7298-9 #### HIWOT Patterson ([id number]) [facility] ([facility]) [address] [place] [address] 78593 HbA1c (Bld) [Mass fraction]o n 01-07-2024 Average glucose Estimated from glycated hemoglobin (Bld) [Mass/Vol] 128 mg/dL Normal Not Established [facility] Comment on above: Order Comment: [facility] Judith [employer]ERR[facility] Research participant; insurance: Research Diagnosis code Z00.6 Award: [id number] IRB #: [id number] Diagnosis of Diabetes-Adults Non-Diabetic: < or = 5.6% Increased risk for developing diabetes: 5.7-6.4% Diagnostic of diabetes: > or = 6.5% Performed By: #### 4 548-4 #### HIWOT Patterson (23737) [facility] ([facility]) [address] [place], [place] [address] Hemoglobin A1c/Hemoglobin.to [facility] 01-07-2024 HbA1c (Bld) [Mass fraction] 6.1 % High see below [facility] Comment on above: Order Comment: [facility] Judith JORDAN Research participant; insurance: Research Diagnosis code Z00.6 Award: [id number] IRB #: [id number] Diagnosis of Diabetes-Adults Non-Diabetic: < or = 5.6% Increased risk for developing diabetes: 5.7-6.4% Diagnostic of diabetes: > or = 6.5% Performed By: #### 4 548-4 #### HIWOT Patterson (67024) [facility] ([facility]) [address] [place], [place] [address] Lipid 1996 [facility] Cholesterol [Mass/Vol] 184 mg/dL Normal 0-199 [facility] Comment on above: Order Comment: [facility] Research participant; insurance: Research Diagnosis code Z00.6 Award: [id number] IRB #: [id number] Result Comment: Age Desirable Borderline High High 0-19 Y 0 - 169 170 - 199 >/= 200 20-24 Y 0 - 189 190 - 224 >/= 225 >24 Y 0 - 199 200 - 239 >/= 240 All ranges are based on fasting samples. Specific therapeutic targets will vary based on patient-specific cardiac risk. Pediatric guidelines reference:Pediatrics 2011, 128(S5).Adult guidelines reference: NCEP ATPIII Guidelines,LYLE 2001, 258:2486-97 Venipuncture immediately after or during the administration of Metamizole may lead to falsely low results. Testing should be performed immediately prior to Metamizole dosing. Performed By: #### 2 7298-9 #### HIWOT Patterson (38249) [facility] ([facility]) [address] [place] [address] 07017 Cholesterol in HDL [Mass/Vol] 63.7 mg/dL Normal [facility] Comment on above: Order Comment: [facility] Research participant; insurance: Research Diagnosis code Z00.6 Award: [id number] IRB #: [id number] Result Comment: Age Very Low Low Normal High 0-19 Y < 35 < 40 40-45 ---- 20-24 Y ---- < 40 >45 ---- >24 Y ---- < 40 40-60 >60 Performed By: #### 2 7298-9 #### HIWOT Patterson (71025) [facility] ([facility]) [address] [place] [address] 35637 Cholesterol in LDL [Mass/Vol] 102 mg/dL High <=99 [facility] Comment on above: Order Comment: [facility] Research participant; insurance: Research Diagnosis code Z00.6 Award: [id number] IRB #: [id number] Result Comment: Near Borderline AGE Desirable Optimal High High Very High 0-19 Y 0 - 109 --- 110-129 >/= 130 ---- 20-24 Y 0 - 119 --- 120-159 >/= 160 ---- >24 Y 0 - 99 100-129 130-159 160-189 >/=190 Performed By: #### 2 7298-9 #### HIWOT Patterson (84145) [facility] ([facility]) [address] [place] [address] 09688 Cholesterol in VLDL [Mass/Vol] 18 mg/dL Normal 0-40 [facility] Comment on above: Order Comment: [facility] Research participant; insurance: Research Diagnosis code Z00.6 Award: [id number] IRB #: [id number] Performed By: #### 2 7298-9 #### HIWOT Patterson (79057) [facility] ([facility]) [address] [place] [address] 83833 CHOLESTEROL/HDL RATIO 2.9 [facility] Comment on above: Order Comment: [facility] Research participant; insurance: Research Diagnosis code Z00.6 Award: [id number] IRB #: [id number] Result Comment: Ref Values Desirable < 3.4 High Risk > 5.0 Performed By: #### 2 7298-9 #### HIWOT Patterson (92047) [facility] ([facility]) [address] [place] [address] 93394 NON HDL CHOLESTEROL 120 mg/dL Normal 0-149 [facility] Comment on above: Order Comment: [facility] Research participant; insurance: Research Diagnosis code Z00.6 Award: [id number] IRB #: [id number] Result Comment: Age Desirable Borderline High High Very High 0-19 Y 0 - 119 120 - 144 >/= 145 >/= 160 20-24 Y 0 - 149 150 - 189 >/= 190 ---- >24 Y 30 mg/dL above LDL Cholesterol goal Performed By: #### 2 7298-9 #### HIWOT Patterson (74945) [facility] ([facility]) [address] [place] [address] 37587 Triglyceride [Mass/Vol] 90 mg/dL Normal 0-149 [facility] Comment on above: Order Comment: [facility] Research participant; insurance: Research Diagnosis code Z00.6 Award: [id number] IRB #: [id number] Result Comment: Age Desirable Borderline High High Very High 0 D-90 D 19 - 174 ---- ---- ---- 91 D- 9 Y 0 - 74 75 - 99 >/= 100 ---- 10-19 Y 0 - 89 90 - 129 >/= 130 ---- 20-24 Y 0 - 114 115 - 149 >/= 150 ---- >24 Y 0 - 149 150 - 199 200- 499 >/= 500 Venipuncture immediately after or during the administration of Metamizole may lead to falsely low results. Testing should be performed immediately prior to Metamizole dosing. Performed By: #### 2 7298-9 #### HIWOT Patterson (77268) [facility] ([facility]) [address] [place] [address] 16901 Natriuretic peptide B [Mass/ Vol]on 01-07-2024 Natriuretic peptide B (Bld) [Mass/Vol] 6 pg/mL Normal 0-99 [facility] Comment on above: Order Comment: [facility] Research participant; insurance: Research Diagnosis code Z00.6 Award: [id number] IRB #: [id number] Performed By: #### 2 7298-9 #### HIWOT Patterson ([id number]) [facility] ([facility]) [address] [place] [address] 48177 PT Coag (PPP) [Time]on 01-06 INR Coag (PPP) [Relative time] 1.1 Normal 0.9-1.1 [facility] Comment on above: Order Comment: [facility] Research participant; insurance: Research Diagnosis code Z00.6 Award: [id number] IRB #: [id number] Performed By: #### 5 902-2 #### HIWOT Patterson ([id number]) [facility] ([facility]) [address] [place] [address] 98049 Proteinon 01-07-2024 Protein Qn (U) 16 mg/dL Normal 5-24 [facility] Comment on above: Order Comment: [facility] R [facility] Research participant; insurance: Research Diagnosis code Z00.6 Award: [id number] IRB #: [id number] Performed By: #### 2 7298-9 #### HIWTO Patterson ([id number]) [facility] ([facility]) [address] [place] [address] 17543 Protein Qn (U)on 01-07-2024 Creatinine (U) [Mass/Vol] 145.0 mg/dL Normal 20.0-320.0 [facility] Comment on above: Order Comment: [facility] R [facility] Research participant; insurance: Research Diagnosis code Z00.6 Award: [id number] IRB #: [id number] Performed By: #### 2 7298-9 #### HIWOT Patterson ([id number]) [facility] ([facility]) [address] [place] [address] 91254 Protein/Creatinine (U) [Mass ratio] 0.11 mg/mg Creat Normal 0.00-0.17 [facility] Comment on above: Order Comment: [facility] Research participant; insurance: Research Diagnosis code Z00.6 Award: [id number] IRB #: [id number] Performed By: #### 2 7298-9 #### HIWOT Patterson ([id number]) [facility] ([facility]) [address] [place], [place] [phone] Thyrotropinon 01-07-2024 TSH Qn 1.00 m[IU]/L Normal 0.44-3.98 [facility] Comment on above: Order Comment: [facility] Research participant; insurance: Research Diagnosis code Z00.6 Award: [id number] IRB #: [id number] Performed By: #### 2 7298-9 #### HIWOT Patterson ([id number]) [facility] ([facility]) [address] [place] [address] Thyroxine.freeon 01-07-2024 Free T4 [Mass/Vol] 1.65 ng/dL High 0.78-1.48 [facility] Comment on above: Order Comment: [facility] Research participant; insurance: Research Diagnosis code Z00.6 Award: [id number] IRB #: [id number] Performed By: #### 2 7298-9 #### HIWOT Patterson ([id number]) [facility] ([facility]) [address] [place] [address] Troponin I.cardiac panelon 0 01-07-2024 Tropinin I.cardiac panel High sensitivity method 17 ng/L Normal 0-34 [facility] Comment on above: Order Comment: [facility] Research participant; insurance: Research Diagnosis code Z00.6 Award: [id number] IRB #: [id number] Less than 99th percentile of normal range cutoff- Female and children under 18 years old <35 ng/L; Male <54 ng/L: Negative Repeat testing should be performed if clinically indicated. Female and children under 18 years old 35-120 ng/L; Male 54-120 ng/L: Consistent with possible cardiac damage and possible increased clinical risk. Serial measurements may help to assess extent of myocardial damage. >120 ng/L: Consistent with cardiac damage, increased clinical risk and myocardial infarction. Serial measurements may help assess extent of myocardial damage. NOTE: Children less than 1 year old may have higher baseline troponin levels and results should be interpreted in conjunction with the overall clinical context. NOTE: Troponin I testing is performed using a different testing methodology at [facility] than at other [facility]. Direct result comparisons should only be made within the same method. Performed By: #### 8 9577-1 #### HIWOT Patterson ([id number]) [facility] ([facility]) [address] [place] [address] 22625 Urinalysis complete panel (U )on 01-07-2024 Appearance (U) Clear Normal Clear [facility] Comment on above: Order Comment: [facility] Research participant; insurance: Research Diagnosis code Z00.6 Award: [id number] IRB #: [id number] Performed By: #### 2 4356-8 #### HIWOT Patterson ([id number]) [facility] ([facility]) [address] [place] [address] 61460 Bilirubin (U) [Mass/Vol] Negative Normal NEGATIVE [facility] Comment on above: Order Comment: [facility] Research participant; insurance: Research Diagnosis code Z00.6 Award: [id number] IRB #: [id number] Performed By: #### 2 4356-8 #### HIWOT Patterson ([id number]) [facility] ([facility]) [address] [place] [address] 25390 Color (U) Yellow Normal Light-Yellow , Yellow, Dark-Yellow [facility] Comment on above: Order Comment: [facility] Research participant; insurance: Research Diagnosis code Z00.6 Award: [id number] IRB #: [id number] Performed By: #### 2 4356-8 #### HIWOT Patterson ([id number]) [facility] ([facility]) [address] [place] [address] 62956 Glucose Auto test strip (U) [Mass/Vol] Normal Normal Normal [facility] Comment on above: Order Comment: [facility] Research participant; insurance: Research Diagnosis code Z00.6 Award: [id number] IRB #: [id number] Performed By: #### 2 4356-8 #### HIWOT Patterson ([id number]) [facility] ([facility]) [address] [place] [address] 20653 Ketones (U) [Mass/Vol] Negative Normal [facility]IVE [facility]: Order Comment: [facility] Research participant; insurance: Research Diagnosis code Z00.6 Award: [id number] IRB #: [id number] Performed By: #### 2 4356-8 #### HIWOT Patterson ([id number]) [facility] ([facility]) [address] [place] [address] 95767 Leukocyte esterase Auto test strip Ql (U) 250 Laly/???L Abnormal NEGATIVE [facility] Comment on above: Order Comment: [facility] Research participant; insurance: Research Diagnosis code Z00.6 Award: [id number] IRB #: [id number] Performed By: #### 2 4356-8 #### HIWOT Patterson ([id number]) [facility] ([facility]) [address] [place] [address] 37426 Nitrite Auto test strip Ql (U) Negative Normal NEGATIVE [facility] Comment on above: Order Comment: [facility] Research participant; insurance: Research Diagnosis code Z00.6 Award: [id number] IRB #: [id number] Performed By: #### 2 4356-8 #### HIWOT Patterson ([id number]) [facility] ([facility]) [address] [place] [address] 36938 pH (U) 7.0 [pH] Normal 5.0, 5.5, 6.0, 6.5, 7.0, 7.5, 8.0 [facility] Comment on above: Order Comment: [facility] Research participant; insurance: Research Diagnosis code Z00.6 Award: [id number] IRB #: [id number] Performed By: #### 2 4356-8 #### HIWOT Patterson ([id number]) [facility] ([facility]) [address] [place] [address] 93632 Protein (U) [Mass/Vol] 10 (TRACE) Normal NEGAT ZACKARY, 10 (TRACE), 20 (TRACE) [facility] Comment on above: Order Comment: [facility] Research participant; insurance: Research Diagnosis code Z00.6 Award: [id number] IRB #: [id number] Performed By: #### 2 4356-8 #### HIWOT Patterson ([id number]) [facility] ([facility]) [address] [place] [address] 32192 RBC (U) [#/Vol] Negative Normal NEGATIVE [facility] Comment on above: Order Comment: [facility] Research participant; insurance: Research Diagnosis code Z00.6 Award: [id number] IRB #: [id number] Performed By: #### 2 4356-8 #### HIWOT Patterson ([id number]) [facility] ([facility]) [address] [place], [place] [address] Specific gravity (U) [Rel density] 1.023 Normal 1.005-1.035 [facility] Comment on above: Order Comment: [facility] Research participant; insurance: Research Diagnosis code Z00.6 Award: [id number] IRB #: [id number] Performed By: #### 2 4356-8 #### HIWOT Patterson ([id number]) [facility] ([facility]) [address] [place] [address] 20323 Urobilinogen (U) [Mass/Vol] Normal Normal Normal [facility] Comment on above: Order Comment: [facility] Research participant; insurance: Research Diagnosis code Z00.6 Award: [id number] IRB #: [id number] Performed By: #### 2 4356-8 #### HIWOT Patterson ([id number]) [facility] ([facility]) [address] [place] [address] 95016 Urinalysis microscopic panel Auto Ql (U)on 01-07-2024 Epithelial cells.squamous Auto (Urine sed) [#/Area] 1-9 (SPARSE) Normal Reference range not established. [facility] Comment on above: Order Comment: [facility] Research participant; insurance: Research Diagnosis code Z00.6 Award: [id number] IRB #: [id number] Performed By: #### 5 3315-8 #### HIWOT Patterson ([id number]) [facility] ([facility]) [address] [place] [address] 19361 Mucus Auto (Urine sed) [#/Area] FEW Normal Reference range not established. [facility] Comment on above: Order Comment: [facility] Research participant; insurance: Research Diagnosis code Z00.6 Award: [id number] IRB #: [id number] Performed By: #### 5 3315-8 #### HIWOT Patterson ([id number]) [facility] ([facility]) [address] [place] [address] 43356 RBC Auto (Urine sed) [#/Area] 3-5 Normal NONE, 1-2, 3-5 [facility] Comment on above: Order Comment: [facility] Research participant; insurance: Research Diagnosis code Z00.6 Award: [id number] IRB #: [id number] Performed By: #### 5 3315-8 #### HIWOT Patterson ([id number]) [facility] ([facility]) [address] [place] [address] 82110 WBC Auto (Urine sed) [#/Area] 1-5 Normal 1-5, NONE [facility] Comment on above: Order Comment: [facility] Research participant; insurance: Research Diagnosis code Z00.6 Award: [id number] IRB #: [id number] Performed By: #### 5 3315-8 #### HIWOT Patterson ([id number]) [facility] ([facility]) [address] [place] [address] 09869 Absolute lymphocyte countOrd ered By: Joseph Smyth on 07-29-2023 Lymphocytes Auto (Unsp spec) [#/Vol] 2.44 10*3/uL 0.83-4.51 [facility] Automated lymphocyte count a s percentage of total leukocytesOrdered By: Joseph Smyth on 07-29-2023 Lymphocytes/100 WBC Auto (Unsp spec) 35.4 % 19-41 [facility] Basophil percentageOrdered B y: Efewongbe Libra on 07-29-2023 Basophils/100 WBC (Bld) 0.7 % 0-1 [facility] Chloride [Moles/Vol] 107 mmol/L 98-107 [facility] Eosinophils/100 WBC (Bld) 3.6 % 0-5 [facility] Glucose [Mass/Vol] 156 mg/dL 74-106 [facility] Comment on above: Fasting Glucose resu lt greater than or equal to 126 mg/dL suggests DIABETES MELLITUS per A.D.A. criteria. Hemoglobin (Bld) [Mass/Vol] 13.1 g/dL 12.0-15.0 [facility] Monocytes/100 WBC (Bld) 8.1 % 0-10 [facility] Neutrophils (Bld) [#/Vol] 3.6 10*3/uL 2.0-7.7 [facility] Neutrophils/100 WBC (Bld) 51.9 % 47-70 [facility] Potassium [Moles/Vol] 3.8 mmol/L 3.5-5.1 [facility] Sodium [Moles/Vol] 139 mmol/L 136-145 [facility] WBC (Bld) [#/Vol] 6.9 10*3/uL 4.4-11.0 [facility] Determination of erythrocyte mean corpuscular volume (MCV)Ordered By: Joseph Smyth on 07-29-2023 MCV (RBC) [Entitic vol] 90.5 fL 81-99 [facility] Erythrocyte distribution wid th ratioOrdered By: Joseph Smyth on 07-29-2023 Erythrocyte distribution width (RBC) [Ratio] 13.3 % 11.6-14.6 [facility] Erythrocyte distribution wid th standard deviationOrdered By: Joseph Smyth on 07-29-2023 Erythrocyte distribution width (RBC) [Entitic vol] 44.3 fL 35.1-43.9 [facility] Hematocrit Auto (Bld) [Volum e fraction]Ordered By: Joseph Smyth on 07-29-2023 Hematocrit (Bld) [Volume fraction] 39.8 % 37-47 [facility] Immature granulocytes/100 WB C Auto (Bld)Ordered By: Joseph Smyth on 07-29-2023 Immature granulocytes/100 WBC (Bld) 0.300 % 0.0-0.9 [facility] Comment on above: IG% - Immature Granu locytes (promyelocytes, myelocytes and metamyelocytes) > 1% indicates that a LEFT SHIFT is Present. Laboratory - Chemistry and C hemistry - challengeOrdered By: Joseph Smyth on 07-29-2023 CO2 [Moles/Vol] 25.0 mmol/L 21.0-32.0 [facility] Urea nitrogen/Creatinine [Mass ratio] 13.9 mg/mg 10-20 [facility] Laboratory - Hematology and Cell countsOrdered By: Joseph Smyth on 07-29-2023 MCH (RBC) [Entitic mass] 29.8 pg 27.0-32.0 [facility] MCHC (RBC) [Mass/Vol] 32.9 g/dL 32-36 [facility] Nucleated RBC/100 WBC (Bld) [Ratio] 0 % 0-5 [facility] Platelet mean volume (Bld) [Entitic vol] 9.8 fL 6.2-12.0 [facility] Platelets (Bld) [#/Vol] 323 10*3/uL 150-450 [facility] No Panel InformationOrdered By: Joseph Smyth on 07-29-2023 Estimated GFR (MDRD) Amer 76 mL/min >60 [facility] Comment on above: GFR Calc Estimated GFR (MDRD) Non-Af Amer 63 mL/min >60 [facility] Comment on above: Non- GFR Calc RBC Auto (Bld) [#/Vol]Ordere d By: Joseph Smyth on 07-29-2023 RBC (Bld) [#/Vol] 4.40 10*6/uL 4.2-5.4 [facility] Serum or plasma calcium david urement (mass/volume)Ordered By: Joseph Smyth on 07-29-2023 Calcium [Mass/Vol] 9.1 mg/dL 8.5-10.1 [facility] Serum or plasma creatinine m easurement (mass/volume)Ordered By: Joseph Smyth on 07-29-2023 Creatinine [Mass/Vol] 0.94 mg/dL 0.55-1.02 [facility] Comment on above: The validity of the calculated GFR & GFRAA in patients over 70 years has not been determined. Clinical correlation is essential. Serum or plasma thyroid stim ulating hormone (TSH) measurement (units/volume)Ordered By: Joseph Smyth on 07-29-2023 TSH Qn 0.93 uIU/mL 0.358-3.74 [facility] Serum or plasma urea nitroge n measurement (mass/volume)Ordered By: Joseph Smyth on 07-29-2023 Urea nitrogen [Mass/Vol] 13 mg/dL 7-18 [facility] Thin prep Papanicolaou smear with manual screeningOrdered By: marcusmountainburgdaphney Smyth on 07-29-2023 Thin prep Papanicolaou smear with manual screening 7 5-15 [facility] Whole blood hemoglobin A1c/t otal hemoglobin ratio (mass fraction)Ordered By: Joseph Smyth on 07-29-2023 HbA1c (Bld) [Mass fraction] 6.0 % 3.8-5.6 [facility] Comment on above: Normal < 5.7 % Predi abetic 5.7 - 6.4 % Diabetic >or= 6.5 % Please note range changes. No Panel InformationOrdered By: Brant Langley on 07-01-2023 CA 19-9 Antigen 4 U/mL 0-35 [facility] Comment on above: [employer] El ectrochemiluminescence Immunoassay(ECLIA)Values obtained with different assay methods or kits cannotbe used interchangeably. Results cannot be interpreted asabsolute evidence of the presence or absence of malignantdisease.Performed at: [address] [id number] Director: Ronald Gonzalez PhD, Phone: [phone] Serum or plasma carcinoembry onic antigen measurement (mass/volume)Ordered By: Brant Langley on 07-01-2023 Carcinoembryonic Ag [Mass/Vol] 1.0 ng/mL 0.0-4.7 [facility] Comment on above: Nonsmokers <3.9 Smok ers <5.6[facility] [employer] Electrochemiluminescence Immunoassay(ECLIA)Values obtained with different assay methods or kitscannot be used interchangeably. Results cannot beinterpreted as absolute evidence of the presence orabsence of malignant disease. Basophil percentageOrdered B y: Joseph Smyth on 05-19-2023 Chloride [Moles/Vol] 105 mmol/L 98-107 [facility] Glucose [Mass/Vol] 109 mg/dL 74-106 [facility] Comment on above: Fasting Glucose resu lt from 100 to 125 mg/dL suggests IMPAIRED HOMEOSTASIS per A.D.A. criteria. Potassium [Moles/Vol] 3.8 mmol/L 3.5-5.1 [facility] Sodium [Moles/Vol] 137 mmol/L 136-145 [facility] Laboratory - Chemistry and C hemistry - challengeOrdered By: Joseph Smyth on 05-19-2023 CO2 [Moles/Vol] 28.0 mmol/L 21.0-32.0 [facility] Urea nitrogen/Creatinine [Mass ratio] 17.2 mg/mg 10-20 [facility] No Panel InformationOrdered By: Joseph Smyth on 05-19-2023 Estimated GFR (MDRD) Amer 77 mL/min >60 [facility] Comment on above: GFR Calc Estimated GFR (MDRD) Non-Af Amer 64 mL/min >60 [facility] Comment on above: Non- GFR Calc Serum or plasma calcium david urement (mass/volume)Ordered By: Joseph Smyth on 05-19-2023 Calcium [Mass/Vol] 8.8 mg/dL 8.5-10.1 [facility] Serum or plasma creatinine m easurement (mass/volume)Ordered By: Joseph Smyth on 05-19-2023 Creatinine [Mass/Vol] 0.93 mg/dL 0.55-1.02 [facility] Comment on above: The validity of the calculated GFR & GFRAA in patients over 70 years has not been determined. Clinical correlation is essential. Serum or plasma urea nitroge n measurement (mass/volume)Ordered By: Joseph Smyth on 05-19-2023 Urea nitrogen [Mass/Vol] 16 mg/dL 7-18 [facility] Thin prep Papanicolaou smear with manual screeningOrdered By: Joseph Smyth on 05-19-2023 Thin prep Papanicolaou smear with manual screening 4 5-15 [facility] No Panel InformationOrdered By: Joseph Smyth on 04-21-2023 Thyroid Stimulating Hormone (TSH) 1.40 uIU/mL 0.358-3.74 [facility] Absolute lymphocyte countOrd ered By: Brant Langley on 03-09-2023 Lymphocytes Auto (Unsp spec) [#/Vol] 4.30 10*3/uL 0.83-4.51 [facility] Basophil percentageOrdered B y: Brant Langley on 03-09-2023 Amylase [Catalytic activity/Vol] 40 U/L 25-115 [facility] Basophils/100 WBC (Bld) 0.9 % 0-1 [facility] Bilirubin [Mass/Vol] 0.50 mg/dL 0.20-1.00 [facility] Comment on above: For patients on eltr ombopag therapy, use of Dimension [place] TBIL is not recommended. Chloride [Moles/Vol] 98 mmol/L 98-107 [facility] Eosinophils/100 WBC (Bld) 2.2 % 0-5 [facility] Glucose [Mass/Vol] 147 mg/dL 74-106 [facility] Comment on above: Fasting Glucose resu lt greater than or equal to 126 mg/dL suggests DIABETES MELLITUS per A.D.A. criteria. Neutrophils (Bld) [#/Vol] 5.3 10*3/uL 2.0-7.7 [facility] Neutrophils/100 WBC (Bld) 47.5 % 47-70 [facility] Potassium [Moles/Vol] 3.2 mmol/L 3.5-5.1 [facility] Protein [Mass/Vol] 8.1 g/dL 6.4-8.2 [facility] Sodium [Moles/Vol] 136 mmol/L 136-145 [facility] WBC (Bld) [#/Vol] 11.0 10*3/uL 4.4-11.0 [facility] Blood erythrocytes count (nu mber/volume)Ordered By: Brant Langley on 03-09-2023 RBC (Bld) [#/Vol] 4.83 10*6/uL 4.2-5.4 [facility] Blood hemoglobin measurement (mass/volume)Ordered By: Brant Langley on 03-09-2023 Hemoglobin (Bld) [Mass/Vol] 14.3 g/dL 12.0-15.0 [facility] Blood lymphocytes/100 leukoc ytesOrdered By: Brant Langley on 03-09-2023 Lymphocytes/100 WBC (Bld) 39.0 % 19-41 [facility] Blood monocytes/100 leukocyt esOrdered By: Branttrixie Langley on 03-09-2023 Monocytes/100 WBC (Bld) 10.0 % 0-10 [facility] Blood platelet mean volumeOr dered By: Branttrixie Langley on 03-09-2023 Platelet mean volume (Bld) [Entitic vol] 9.7 fL 6.2-12.0 [facility] Determination of erythrocyte mean corpuscular volume (MCV)Ordered By: Brant Langley on 03-09-2023 MCV (RBC) [Entitic vol] 89.6 fL 81-99 [facility] Hematocrit Auto (Bld) [Volum e fraction]Ordered By: Brant Langley on 03-09-2023 Hematocrit (Bld) [Volume fraction] 43.3 % 37-47 [facility] Laboratory - Chemistry and C hemistry - challengeOrdered By: Brant Langley on 03-09-2023 ALP [Catalytic activity/Vol] 112 U/L 45-117 [facility] ALT [Catalytic activity/Vol] 26 U/L 13-56 [facility] CO2 [Moles/Vol] 30.0 mmol/L 21.0-32.0 [facility] Globulin (S) [Mass/Vol] 4.4 g/dL 2.2-4.2 [facility] Lipase [Catalytic activity/Vol] 36 U/L 13-75 [facility] Comment on above: Please note:LIPASE r evised reference range effective 22. New Lipase methodology. Expected to produce lower values than the previous assay method. NEW Reference Range: 13 - 75 U/L Urea nitrogen/Creatinine [Mass ratio] 13.4 mg/mg 10-20 [facility] Laboratory - Hematology and Cell countsOrdered By: Brant Langley on 03-09-2023 Erythrocyte distribution width (RBC) [Entitic vol] 41.4 fL 35.1-43.9 [facility] Erythrocyte distribution width (RBC) [Ratio] 12.6 % 11.6-14.6 [facility] Immature granulocytes/100 WBC (Bld) 0.400 % 0.0-0.9 [facility] Comment on above: IG% - Immature Granu locytes (promyelocytes, myelocytes and metamyelocytes) > 1% indicates that a LEFT SHIFT is Present. MCH (RBC) [Entitic mass] 29.6 pg 27.0-32.0 [facility] Nucleated RBC/100 WBC (Bld) [Ratio] 0 % 0-5 [facility] MCHC Auto (RBC) [Mass/Vol]Or dered By: Brant Langley on 03-09-2023 MCHC (RBC) [Mass/Vol] 33.0 g/dL 32-36 [facility] No Panel InformationOrdered By: Brant Langley on 03-09-2023 Estimated GFR (MDRD) Amer 58 mL/min >60 [facility] Comment on above: GFR Calc Estimated GFR (MDRD) Non-Af Amer 48 mL/min >60 [facility] Comment on above: Non- GFR Calc Platelets bldOrdered By: Bora Langley on 03-09-2023 Platelets (Bld) [#/Vol] 389 10*3/uL 150-450 [facility] Serum or plasma albumin david urement (mass/volume)Ordered By: Brant Langley on 03-09-2023 Albumin [Mass/Vol] 3.7 g/dL 3.2-5.0 [facility] Serum or plasma albumin/glob ulin mass ratioOrdered By: Brant Langley on 03-09-2023 Albumin/Globulin [Mass ratio] 0.8 {ratio} 0.9-2.4 [facility] Serum or plasma calcium david urement (mass/volume)Ordered By: Brant Langley on 03-09-2023 Calcium [Mass/Vol] 9.4 mg/dL 8.5-10.1 [facility] Serum or plasma creatinine m easurement (mass/volume)Ordered By: Brant Langley on 03-09-2023 Creatinine [Mass/Vol] 1.19 mg/dL 0.55-1.02 [facility] Comment on above: The validity of the calculated GFR & GFRAA in patients over 70 years has not been determined. Clinical correlation is essential. Serum or plasma urea nitroge n measurement (mass/volume)Ordered By: Brant Langley on 03-09-2023 Urea nitrogen [Mass/Vol] 16 mg/dL 7-18 [facility] Thin prep Papanicolaou smear with manual screeningOrdered By: Brant Langley on 03-09-2023 Thin prep Papanicolaou smear with manual screening 19 U/L 15-37 [facility] Thin prep Papanicolaou smear with manual screening 8 5-15 [facility] Basophil percentageOrdered B y: Joseph Smyth on 02-27-2023 Basophil percentage 10-25 SEEN /hpf 0-5 [facility] Bilirubin Test strip Ql (U)O rdered By: Joseph Smyth on 02-27-2023 Bilirubin Ql (U) Negative Negative [facility] Ketones Test strip Ql (U)Ord ered By: Joseph Smyth on 02-27-2023 Ketones Ql (U) Negative Negative [facility] Laboratory - Hematology and Cell countson 02-27-2023 HbA1c (Bld) [Mass fraction] 6.0 % 4.2-6.3 [facility] Mucus LM Ql (Urine sed)Order ed By: Joseph Smyth on 02-27-2023 Mucus Ql (Urine sed) 0 SEEN /hpf [facility] Nitrite Test strip Ql (U)Ord ered By: Joseph Washingtone on 02-27-2023 Nitrite Ql (U) Negative Negative [facility] Protein Test strip Ql (U)Ord ered By: Efmarcusongbe Libra on 02-27-2023 Protein Ql (U) Negative Negative [facility] Squamous epithelial cells de tection in urine sediment by light microscopyOrdered By: Joseph Smyth on 02-27-2023 Epithelial cells.squamous LM Ql (Urine sed) 0-5 SEEN /hpf 5-10 [facility] Urine blood detectionOrdered By: Joseph Smyth on 02-27-2023 RBC Ql (U) Negative Negative [facility] RBC Ql (U) 0 SEEN /hpf 0-5 [facility] Urine clarityOrdered By: [place] Smyth on 02-27-2023 Clarity (U) Sl. Cloudy Clear [facility] Urine color determinationOrd ered By: Joseph Smyth on 02-27-2023 Color (U) Yellow Yellow [facility] Urine glucose detectionOrder ed By: Joseph Smyth on 02-27-2023 Glucose Ql (U) Normal mg/dl Normal [facility] Urine leukocyte esterase det ection by dipstickOrdered By: Joseph Smyth on 02-27-2023 Leukocyte esterase Test strip Ql (U) 100 /ul Negative [facility] Urine pHOrdered By: Yolie Smyth on 02-27-2023 pH (U) 5.0 [pH] 5.0 - 8.0 [facility] Urine sediment bacteria coun t by microscopy (number/high power field)Ordered By: Joseph Smyth on 02-27-2023 Bacteria LM.HPF (Urine sed) [#/Area] 0 /[HPF] None Seen [facility] Urine specific gravity measu rementOrdered By: Joseph Smyth on 02-27-2023 Specific gravity (U) [Rel density] 1.020 1.002-1.030 [facility] Urobilinogen Auto test strip Ql (U)Ordered By: Joseph Smyth on 02-27-2023 Urobilinogen Ql (U) Normal mg/dl Normal [facility] Absolute lymphocyte countOrd ered By: Rafael Bradford on 02-20-2023 Lymphocytes Auto (Unsp spec) [#/Vol] 2.77 10*3/uL 0.83-4.51 [facility] Basophil percentageOrdered B y: Rafael Bradford on 02-20-2023 Basophils/100 WBC (Bld) 0.6 % 0-1 [facility] Bilirubin [Mass/Vol] 0.40 mg/dL 0.20-1.00 [facility] Comment on above: For patients on eltr ombopag therapy, use of Dimension [place] TBIL is not recommended. Chloride [Moles/Vol] 103 mmol/L 98-107 [facility] Eosinophils/100 WBC (Bld) 2.6 % 0-5 [facility] Glucose [Mass/Vol] 110 mg/dL 74-106 [facility] Comment on above: Fasting Glucose resu lt from 100 to 125 mg/dL suggests IMPAIRED HOMEOSTASIS per A.D.A. criteria. Neutrophils (Bld) [#/Vol] 6.1 10*3/uL 2.0-7.7 [facility] Neutrophils/100 WBC (Bld) 59.5 % 47-70 [facility] Potassium [Moles/Vol] 3.8 mmol/L 3.5-5.1 [facility] Protein [Mass/Vol] 7.9 g/dL 6.4-8.2 [facility] Sodium [Moles/Vol] 135 mmol/L 136-145 [facility] WBC (Bld) [#/Vol] 10.2 10*3/uL 4.4-11.0 [facility] Blood erythrocytes count (nu mber/volume)Ordered By: Rafael Bradford on 02-20-2023 RBC (Bld) [#/Vol] 4.73 10*6/uL 4.2-5.4 [facility] Blood hemoglobin measurement (mass/volume)Ordered By: Rafael Bradford on 02-20-2023 Hemoglobin (Bld) [Mass/Vol] 14.3 g/dL 12.0-15.0 [facility] Blood lymphocytes/100 leukoc ytesOrdered By: Rafael Bradford on 02-20-2023 Lymphocytes/100 WBC (Bld) 27.3 % 19-41 [facility] Blood monocytes/100 leukocyt esOrdered By: Rafael Bradford on 02-20-2023 Monocytes/100 WBC (Bld) 9.7 % 0-10 [facility] Blood platelet mean volumeOr dered By: Rafael Bradford on 02-20-2023 Platelet mean volume (Bld) [Entitic vol] 9.3 fL 6.2-12.0 [facility] Determination of erythrocyte mean corpuscular volume (MCV)Ordered By: Rafael Bradford on 02-20-2023 MCV (RBC) [Entitic vol] 88.6 fL 81-99 [facility] Hematocrit Auto (Bld) [Volum e fraction]Ordered By: Rafael Bradford on 02-20-2023 Hematocrit (Bld) [Volume fraction] 41.9 % 37-47 [facility] Laboratory - Chemistry and C hemistry - challengeOrdered By: Rafael Bradford on 02-20-2023 ALP [Catalytic activity/Vol] 125 U/L 45-117 [facility] ALT [Catalytic activity/Vol] 30 U/L 13-56 [facility] CO2 [Moles/Vol] 29.0 mmol/L 21.0-32.0 [facility] Globulin (S) [Mass/Vol] 4.5 g/dL 2.2-4.2 [facility] Urea nitrogen/Creatinine [Mass ratio] 17.7 mg/mg 10-20 [facility] Laboratory - Hematology and Cell countsOrdered By: Rafael Bradford on 02-20-2023 Erythrocyte distribution width (RBC) [Entitic vol] 41.4 fL 35.1-43.9 [facility] Erythrocyte distribution width (RBC) [Ratio] 12.7 % 11.6-14.6 [facility] Immature granulocytes/100 WBC (Bld) 0.300 % 0.0-0.9 [facility] Comment on above: IG% - Immature Granu locytes (promyelocytes, myelocytes and metamyelocytes) > 1% indicates that a LEFT SHIFT is Present. MCH (RBC) [Entitic mass] 30.2 pg 27.0-32.0 [facility] Nucleated RBC/100 WBC (Bld) [Ratio] 0 % 0-5 [facility] MCHC Auto (RBC) [Mass/Vol]Or dered By: Rafael Bradford on 02-20-2023 MCHC (RBC) [Mass/Vol] 34.1 g/dL 32-36 [facility] No Panel InformationOrdered By: Rafael Bradford on 02-20-2023 Estimated Creatinine Clearance Calc 58.99 ml/min [facility] Estimated GFR (MDRD) Amer 80 mL/min >60 [facility] Comment on above: GFR Calc Estimated GFR (MDRD) Non-Af Amer 66 mL/min >60 [facility] Comment on above: Non- GFR Calc Thyroid Stimulating Hormone (TSH) 0.18 uIU/mL 0.358-3.74 [facility] Platelets bldOrdered By: Blaise Bradford on 02-20-2023 Platelets (Bld) [#/Vol] 316 10*3/uL 150-450 [facility] Serum or plasma albumin david urement (mass/volume)Ordered By: Rafael Bradford on 02-20-2023 Albumin [Mass/Vol] 3.4 g/dL 3.2-5.0 [facility] Serum or plasma albumin/glob ulin mass ratioOrdered By: Rafael Bradford on 02-20-2023 Albumin/Globulin [Mass ratio] 0.8 {ratio} 0.9-2.4 [facility] Serum or plasma calcium david urement (mass/volume)Ordered By: Rafael Bradford on 02-20-2023 Calcium [Mass/Vol] 9.3 mg/dL 8.5-10.1 [facility] Serum or plasma creatinine m easurement (mass/volume)Ordered By: Rafael Bradford on 02-20-2023 Creatinine [Mass/Vol] 0.90 mg/dL 0.55-1.02 [facility] Comment on above: The validity of the calculated GFR & GFRAA in patients over 70 years has not been determined. Clinical correlation is essential. Serum or plasma urea nitroge n measurement (mass/volume)Ordered By: Rafael Bradford on 02-20-2023 Urea nitrogen [Mass/Vol] 16 mg/dL 7-18 [facility] Thin prep Papanicolaou smear with manual screeningOrdered By: Rafael Bradford on 02-20-2023 Thin prep Papanicolaou smear with manual screening 21 U/L 15-37 [facility] Thin prep Papanicolaou smear with manual screening 3 5-15 [facility] No Panel InformationOrdered By: Joseph Smyth on 12-22-2022 Thyroid Stimulating Hormone (TSH) 0.36 uIU/mL 0.358-3.74 [facility] No Panel InformationOrdered By: Brant Langley on 12-04-2022 Stool Calprotectin 68 ug/g 0-120 [facility] Comment on above: Concentration Interp retation Follow-Up< 5 - 50 ug/g Normal None>50 -120 ug/g Borderline Re-evaluate in 4-6 weeks >120 ug/g Abnormal Repeat as clinically indicatedPerformed at: [facility] [place] [facility] [id number] Director: Ashu Dey MD, Phone: [phone] Stool lactoferrin detection by immunoassayOrdered By: Brant Langley on 12-04-2022 Lactoferrin IA Ql (Stl) [facility] Lactoferrin IA Ql (Stl) [facility] Albumin Elph [Mass/Vol]Order ed By: Brant Langley on 11-28-2022 Albumin [Mass/Vol] 3.7 g/dL 2.9-4.4 [facility] Atypical perinuclear antineu trophil cytoplasmic antibodies measurementOrdered By: Brant Langley on 11-28-2022 Neutrophil cytoplasmic Ab.perinuclear.atypical IF (S) [Titer] <1:20 titer Neg:<1:20 [facility] Comment on above: The atypical pANCA p attern has been observed in asignificant percentage of patients with ulcerative colitis,primary sclerosing cholangitis and autoimmune hepatitis. Basophil percentageOrdered B y: Brant Langley on 11-28-2022 Basophil percentage < 0.2 AI 0.0-0.9 [facility] LDH [Catalytic activity/Vol] 197 U/L 84-246 [facility] Erythrocyte sedimentation ra teOrdered By: Brant Langley on 11-28-2022 ESR (Bld) [Velocity] 22 mm/h 0-30 [facility] Interpretation of serum or p lasma protein pattern by immunofixation (narrative resultOrdered By: Brant Langley on 11-28-2022 Protein Fractions Immunofixation Joshua [Interp] See comment [facility] Comment on above: NOT OBSERVED Laboratory - Miscellaneous t estsOrdered By: Brant Langley on 11-28-2022 Service comment (Unsp spec) [Interp] Comment . [facility] Comment on above: Levels of Specific I gE Class Description of Class ----- < 0.10 0 Negative 0.10 - 0.31 0/I Equivocal/Low 0.32 - 0.55 I Low 0.56 - 1.40 II Moderate 1.41 - 3.90 III High 3.91 - 19.00 IV Very High 19.01 - 100.00 V Very High >100.00 [facility] No Panel InformationOrdered By: Brant Friend on 11-28-2022 Addendum Document Comment . [facility] Comment on above: Protein electrophore sis scan will follow via computer,mail, or continuous still operator delivery. Centromere B Antibody <0.2 AI 0.0-0.9 [facility] Endomysial IgA Antibody Negative Negative [facility] Immunoglobulin E 225 IU/mL 6-495 [facility] Comment on above: Performed at: [facility] [address] [id number] Director: Ronald Gonzalez PhD, Phone: [phone] at: [address] [id number] Director: Ashu Dey MD, Phone: [phone] Miscellaneous Test See comment [facility] Comment on above: TEST RESULT LIMITSCh romogranin A, 35.7 ng/mL 0.0-101.8Chromogranin A performed by [employer] KRYPTOR methodologyValues obtained with different assay methods or kits cannot be used interchangeably. TESTING PERFORMED AT [facility]. ORIGINAL REPORT ON FILE IN LAB CONTAINS ADDITIONAL TEST SITE INFORMATION. EXPLOSIVE OPERATOR Antibody <0.2 AI 0.0-0.9 [facility] Scallop Allergen <0.10 kU/L Class 0 [facility] Sesame Seed Allergen IgE Antibody <0.10 kU/L Class 0 [facility] Comment on above: Performed at: [facility] [id number] [place], [place] [id number] Director: Ronald Gonzalez PhD, Phone: [phone] at: [facility] [place] [facility] [id number] Director: Ashu Dey MD, Phone: [phone] Shrimp Allergen 1.64 kU/L Class III [facility] No Panel InformationOrdered By: Dr. Smyth on 11-28-2022 Thyroid Stimulating Hormone (TSH) 2.59 uIU/mL 0.358-3.74 [facility] Serum DNA double strand anti body assay (units/volume)Ordered By: Brant Langley on 11-28-2022 DNA double strand Ab Qn (S) 1 [IU]/mL 0-9 [facility] Comment on above: Negative <5 Equivoca l 5 - 9 Positive >9 Serum IgA measurement (units /volume)Ordered By: Brant Langley on 11-28-2022 IgA Qn (S) 209 mg/dL 87-352 [facility] Comment on above: Performed at: [facility] [id number] [place], [place] [id number] Director: Ronald Gonzalez PhD, Phone: [phone] Serum Sandy-1 antibody assay (u nits/volume)Ordered By: Brant Langley on 11-28-2022 Sandy-1 extractable nuclear Ab Qn (S) <0.2 AI 0.0-0.9 [facility] Serum Scl-70 extractable nuc lear antibody assay (units/volume)Ordered By: Brant Langley on 11-28-2022 SCL-70 extractable nuclear Ab Qn (S) <0.2 AI 0.0-0.9 [facility] Serum Horne extractable nucl ear antibody detectionOrdered By: Brant Langley on 11-28-2022 Horne extractable nuclear Ab Ql (S) <0.2 AI 0.0-0.9 [facility] Serum [id number] measu rement by electrophoresisOrdered By: Brant Langley on 11-28-2022 Alpha 1 globulin Elph [Mass/Vol] 0.2 g/dL 0.0-0.4 [facility] Alpha 1 globulin Elph [Mass/Vol] 1.0 g/dL 0.4-1.0 [facility] Serum black walnut IgE antib june assay (units/volume)Ordered By: Brant Langley on 11-28-2022 Black Marshall IgE Qn (S) <0.10 kU/L Class 0 [facility] Serum clam IgE antibody assa y (units/volume)Ordered By: Brant Langley on 11-28-2022 Clam IgE Qn (S) <0.10 kU/L Class 0 [facility] Serum classic neutrophil cyt oplasmic antibody assay (units/volume)Ordered By: Brant Langley on 11-28-2022 Neutrophil cytoplasmic Ab.classic Qn (S) <1:20 titer Neg:<1:20 [facility] Serum codfish IgE antibody a ssay (units/volume)Ordered By: Brant Langley on 11-28-2022 Codfish IgE Qn (S) <0.10 kU/L Class 0 [facility] Serum corn IgE antibody assa y (units/volume)Ordered By: Brant Langley on 11-28-2022 Washta IgE Qn (S) <0.10 kU/L Class 0 [facility] Serum cow milk IgE antibody assay (units/volume)Ordered By: Brant Langley on 11-28-2022 Cow milk IgE Qn (S) <0.10 kU/L Class 0 [facility] Serum egg white IgE antibody assay (units/volume)Ordered By: Brant Langley on 11-28-2022 Egg white IgE Qn (S) <0.10 kU/L Class 0 [facility] Serum globulin measurement ( mass/volume)Ordered By: Brant Langley on 11-28-2022 Globulin (S) [Mass/Vol] 3.7 g/dL 2.2-3.9 [facility] Serum or plasma C reactive p rotein measurement (mass/volume)Ordered By: Brant Langley on 11-28-2022 CRP [Mass/Vol] 5.44 mg/L 0.0-3.0 [facility] Comment on above: C-Reactive Protein ( CRP) provides useful information for thediagnosis, therapy and monitoring of inflammatory processesand associated diseases. For the evaluation of Relative Riskfor Cardiovascular Disease, a High Sensitivity CRP (HSCRP)should be ordered. Serum or plasma IgA measurem ent (mass/volume)Ordered By: Brant Langley on 11-28-2022 IgA [Mass/Vol] 205 mg/dL 87-352 [facility] Serum or plasma IgG measurem ent (mass/volume)Ordered By: Brant Langley on 11-28-2022 IgG [Mass/Vol] 1305 mg/dL [phone] [facility] Serum or plasma IgM measurem ent (mass/volume)Ordered By: Brant Langley on 11-28-2022 IgM [Mass/Vol] 129 mg/dL 26-217 [facility] Serum or plasma beta globuli n measurement by electrophoresis (mass/volume)Ordered By: Brant Langley on 11-28-2022 Beta globulin Elph [Mass/Vol] 1.1 g/dL 0.7-1.3 [facility] Serum or plasma gamma globul in measurement by electrophoresis (mass/volume)Ordered By: Brant Langley on 11-28-2022 Gamma globulin Elph [Mass/Vol] 1.4 g/dL 0.4-1.8 [facility] Serum or plasma gastrin david urement (mass/volume)Ordered By: Brant Langley on 11-28-2022 Gastrin [Mass/Vol] 135 pg/mL 0-115 [facility] Comment on above: Siemens Immulite 200 0 Immunochemiluminometric assay (ICMA)Values obtained with different assay methods or kits cannotbe used interchangeably. Results cannot be interpreted asabsolute evidence of the presence or absence of malignantdisease. Serum or plasma immunoelectr ophoresis interpretation (nominal result)Ordered By: Brant Langley on 11-28-2022 Interpretation IEP [Interp] Comment . [facility] Comment on above: No monoclonality det ected. Serum peanut IgE antibody as say (units/volume)Ordered By: Brant Langley on 11-28-2022 Peanut IgE Qn (S) <0.10 kU/L Class 0 [facility] Serum perinuclear neutrophil cytoplasmic antibody titer by immunofluorescenceOrdered By: Brant Langley on 11-28-2022 Neutrophil cytoplasmic Ab.perinuclear IF (S) [Titer] <1:20 titer Neg:<1:20 [facility] Comment on above: The presence of posi tive fluorescence exhibiting P-ANCA orC-ANCA patterns alone is not specific for the diagnosis ofWegener's Granulomatosis (WG) or microscopic polyangiitis.Decisions about treatment should not be based solely onANCA IFA results. The International ANCA Group Consensusrecommends follow up testing of positive sera with both ND-3 and MPO-ANCA enzyme immunoassays. As many as 5% serumsamples are positive only by EIA. Ref. AM J Clin Yrminu2920;111:507-513. Serum soybean IgE antibody a ssay (units/volume)Ordered By: Brant Langley on 11-28-2022 Soybean IgE Qn (S) <0.10 kU/L Class 0 [facility] Serum tissue transglutaminas e IgA antibody assay (units/volume)Ordered By: Brant Langley on 11-28-2022 tTG IgA Qn (S) <2 U/mL 0-3 [facility] Comment on above: Negative 0 - 3 Weak Positive 4 - 10 Positive >10 Tissue Transglutaminase (tTG) has been identified as the endomysial antigen. Studies have demonstr- ated that endomysial IgA antibodies have over 99% specificity for gluten sensitive enteropathy. Serum wheat IgE antibody ass ay (units/volume)Ordered By: Brant Langley on 11-28-2022 Wheat IgE Qn (S) <0.10 kU/L Class 0 [facility] Thin prep Papanicolaou smear with manual screeningOrdered By: Brant Langley on 11-28-2022 Thin prep Papanicolaou smear with manual screening 1.1 0.7-1.7 [facility] Total protein bloodOrdered B y: Brant Langley on 11-28-2022 Protein [Mass/Vol] 7.4 g/dL 6.0-8.5 [facility] No Panel InformationOrdered By: Dr. Smyth on 11-26-2022 Thyroid Stimulating Hormone (TSH) 10.00 uIU/mL 0.358-3.74 [facility] Basophil percentageOrdered B y: Dr. Smyth on 10-03-2022 Chloride [Moles/Vol] 102 mmol/L 98-107 [facility] Glucose [Mass/Vol] 135 mg/dL 74-106 [facility] Comment on above: Fasting Glucose resu lt greater than or equal to 126 mg/dL suggests DIABETES MELLITUS per A.D.A. criteria. Potassium [Moles/Vol] 3.5 mmol/L 3.5-5.1 [facility] Sodium [Moles/Vol] 135 mmol/L 136-145 [facility] Culture, urineOrdered By: Zuri Smalls on 10-03-2022 Bacteria identified Cx Nom (U) Enterobacter cloacae complex [facility] Laboratory - Chemistry and C hemistry - challengeOrdered By: Dr. Smyth on 10-03-2022 CO2 [Moles/Vol] 29.0 mmol/L 21.0-32.0 [facility] Urea nitrogen/Creatinine [Mass ratio] 15.7 mg/mg 10-20 [facility] No Panel InformationOrdered By: Dr. Smyth on 10-03-2022 Estimated GFR (MDRD) Amer 65 mL/min >60 [facility] Comment on above: GFR Calc Estimated GFR (MDRD) Non-Af Amer 54 mL/min >60 [facility] Comment on above: Non- GFR Calc Thyroid Stimulating Hormone (TSH) 5.38 uIU/mL 0.358-3.74 [facility] Serum or plasma calcium david urement (mass/volume)Ordered By: Dr. Smyth on 10-03-2022 Calcium [Mass/Vol] 9.4 mg/dL 8.5-10.1 [facility] Serum or plasma creatinine m easurement (mass/volume)Ordered By: Dr. Smyth on 10-03-2022 Creatinine [Mass/Vol] 1.08 mg/dL 0.55-1.02 [facility] Comment on above: The validity of the calculated GFR & GFRAA in patients over 70 years has not been determined. Clinical correlation is essential. Serum or plasma urea nitroge n measurement (mass/volume)Ordered By: Dr. Smyth on 10-03-2022 Urea nitrogen [Mass/Vol] 17 mg/dL 7-18 [facility] Thin prep Papanicolaou smear with manual screeningOrdered By: Dr. Smyth on 10-03-2022 Thin prep Papanicolaou smear with manual screening 4 5-15 [facility] Whole blood hemoglobin A1c/t otal hemoglobin ratio (mass fraction)Ordered By: Dr. Smyth on 10-03-2022 HbA1c (Bld) [Mass fraction] 6.0 % 3.8-5.6 [facility] Comment on above: Normal < 5.7 % Predi abetic 5.7 - 6.4 % Diabetic >or= 6.5 % Please note range changes. Basophil percentageOrdered B y: Sai Smalls on 10-01-2022 Basophil percentage 0-5 SEEN /hpf 0-5 [facility] Bilirubin Test strip Ql (U)O rdered By: Sai Smalls on 10-01-2022 Bilirubin Ql (U) Negative Negative [facility] Culture, urineOrdered By: Zuri Smalls on 10-01-2022 Bacteria identified Cx Nom (U) Enterobacter cloacae complex [facility] Ketones Test strip Ql (U)Ord ered By: Sai Smalls on 10-01-2022 Ketones Ql (U) Negative Negative [facility] Mucus LM Ql (Urine sed)Order ed By: Sai Smalls on 10-01-2022 Mucus Ql (Urine sed) 0 SEEN /hpf [facility] Nitrite Test strip Ql (U)Ord ered By: Sai Smalls on 10-01-2022 Nitrite Ql (U) Negative Negative [facility] Protein Test strip Ql (U)Ord ered By: Sai Smalls on 10-01-2022 Protein Ql (U) Negative Negative [facility] Squamous epithelial cells de tection in urine sediment by light microscopyOrdered By: Sai Smalls on 10-01-2022 Epithelial cells.squamous LM Ql (Urine sed) 0 SEEN /hpf 5-10 [facility] Urine blood detectionOrdered By: Sai Smalls on 10-01-2022 RBC Ql (U) Negative Negative [facility] RBC Ql (U) 0 SEEN /hpf 0-5 [facility] Urine clarityOrdered By: Antonella Smalls on 10-01-2022 Clarity (U) Clear Clear [facility] Urine color determinationOrd ered By: Sai Smalls on 10-01-2022 Color (U) Yellow Yellow [facility] Urine glucose detectionOrder ed By: Sai Smalls on 10-01-2022 Glucose Ql (U) Normal mg/dl Normal [facility] Urine leukocyte esterase det ection by dipstickOrdered By: Sai Smalls on 10-01-2022 Leukocyte esterase Test strip Ql (U) 100 /ul Negative [facility] Urine pHOrdered By: Sai De La Torre er on 10-01-2022 pH (U) 6.0 [pH] 5.0 - 8.0 [facility] Urine sediment bacteria coun t by microscopy (number/high power field)Ordered By: Sai Smalls on 10-01-2022 Bacteria LM.HPF (Urine sed) [#/Area] 1 /[HPF] None Seen [facility] Urine specific gravity measu rementOrdered By: Sai Smalls on 10-01-2022 Specific gravity (U) [Rel density] 1.005 1.002-1.030 [facility] Urobilinogen Auto test strip Ql (U)Ordered By: Sai Smalls on 10-01-2022 Urobilinogen Ql (U) Normal mg/dl Normal [facility] Absolute lymphocyte countOrd ered By: Dr. Smyth on 08-29-2022 Lymphocytes Auto (Unsp spec) [#/Vol] 1.91 10*3/uL 0.83-4.51 [facility] Basophil percentageOrdered B y: Dr. Smyth on 08-29-2022 Basophils/100 WBC (Bld) 0.8 % 0-1 [facility] Bilirubin [Mass/Vol] 0.70 mg/dL 0.20-1.00 [facility] Comment on above: For patients on eltr ombopag therapy, use of Dimension [place] TBIL is not recommended. Chloride [Moles/Vol] 103 mmol/L 98-107 [facility] Cholesterol [Mass/Vol] 157 mg/dL <200 [facility] Comment on above: <200 mg/dL Desirable 200-240 mg/dL Borderline >240 mg/dL High Risk Eosinophils/100 WBC (Bld) 2.5 % 0-5 [facility] Glucose [Mass/Vol] 158 mg/dL 74-106 [facility] Comment on above: Fasting Glucose resu lt greater than or equal to 126 mg/dL suggests DIABETES MELLITUS per A.D.A. criteria. Neutrophils (Bld) [#/Vol] 5.1 10*3/uL 2.0-7.7 [facility] Neutrophils/100 WBC (Bld) 64.7 % 47-70 [facility] Potassium [Moles/Vol] 3.1 mmol/L 3.5-5.1 [facility] Protein [Mass/Vol] 7.4 g/dL 6.4-8.2 [facility] Sodium [Moles/Vol] 138 mmol/L 136-145 [facility] Triglyceride [Mass/Vol] 94 mg/dL <199 [facility] Comment on above: The drugs N-Acetylcy steine and Metamizole may falsely depress this assay.Serum Triglycerides Reference Interval Normal <150 mg/dL Borderline high 150 - 199 mg/dL High 200 - 499 mg/dL Very High > or = 500 mg/dL WBC (Bld) [#/Vol] 7.9 10*3/uL 4.4-11.0 [facility] Blood erythrocytes count (nu mber/volume)Ordered By: Dr. Smyth on 08-29-2022 RBC (Bld) [#/Vol] 4.55 10*6/uL 4.2-5.4 [facility] Blood hemoglobin measurement (mass/volume)Ordered By: Dr. Smyth on 08-29-2022 Hemoglobin (Bld) [Mass/Vol] 13.5 g/dL 12.0-15.0 [facility] Blood lymphocytes/100 leukoc ytesOrdered By: Dr. Smyth on 08-29-2022 Lymphocytes/100 WBC (Bld) 24.3 % 19-41 [facility] Blood monocytes/100 leukocyt esOrdered By: Dr. Smyth on 08-29-2022 Monocytes/100 WBC (Bld) 7.4 % 0-10 [facility] Blood platelet mean volumeOr dered By: Dr. Smyth on 08-29-2022 Platelet mean volume (Bld) [Entitic vol] 9.9 fL 6.2-12.0 [facility] Determination of erythrocyte mean corpuscular volume (MCV)Ordered By: Dr. Smyth on 08-29-2022 MCV (RBC) [Entitic vol] 90.5 fL 81-99 [facility] Hematocrit Auto (Bld) [Volum e fraction]Ordered By: Dr. Smyth on 08-29-2022 Hematocrit (Bld) [Volume fraction] 41.2 % 37-47 [facility] Laboratory - Chemistry and C hemistry - challengeOrdered By: Dr. Smyth on 08-29-2022 ALP [Catalytic activity/Vol] 103 U/L 45-117 [facility] ALT [Catalytic activity/Vol] 25 U/L 13-56 [facility] CO2 [Moles/Vol] 29.0 mmol/L 21.0-32.0 [facility] Globulin (S) [Mass/Vol] 3.8 g/dL 2.2-4.2 [facility] Urea nitrogen/Creatinine [Mass ratio] 14.6 mg/mg 10-20 [facility] Laboratory - Hematology and Cell countsOrdered By: Dr. Smyth on 08-29-2022 Erythrocyte distribution width (RBC) [Entitic vol] 43.7 fL 35.1-43.9 [facility] Erythrocyte distribution width (RBC) [Ratio] 13.2 % 11.6-14.6 [facility] Immature granulocytes/100 WBC (Bld) 0.300 % 0.0-0.9 [facility] Comment on above: IG% - Immature Granu locytes (promyelocytes, myelocytes and metamyelocytes) > 1% indicates that a LEFT SHIFT is Present. MCH (RBC) [Entitic mass] 29.7 pg 27.0-32.0 [facility] Nucleated RBC/100 WBC (Bld) [Ratio] 0 % 0-5 [facility] MCHC Auto (RBC) [Mass/Vol]Or dered By: Dr. Smyth on 08-29-2022 MCHC (RBC) [Mass/Vol] 32.8 g/dL 32-36 [facility] No Panel InformationOrdered By: Dr. Smyth on 08-29-2022 Estimated GFR (MDRD) Amer 75 mL/min >60 [facility] Comment on above: GFR Calc Estimated GFR (MDRD) Non-Af Amer 62 mL/min >60 [facility] Comment on above: Non- GFR Calc Thyroid Stimulating Hormone (TSH) 4.97 uIU/mL 0.358-3.74 [facility] Platelets bldOrdered By: Dr. Smyth on 08-29-2022 Platelets (Bld) [#/Vol] 294 10*3/uL 150-450 [facility] Serum or plasma albumin david urement (mass/volume)Ordered By: Dr. Smyth on 08-29-2022 Albumin [Mass/Vol] 3.6 g/dL 3.2-5.0 [facility] Serum or plasma albumin/glob ulin mass ratioOrdered By: Dr. Smyth on 08-29-2022 Albumin/Globulin [Mass ratio] 0.9 {ratio} 0.9-2.4 [facility] Serum or plasma calcium david urement (mass/volume)Ordered By: Dr. Smyth on 08-29-2022 Calcium [Mass/Vol] 9.1 mg/dL 8.5-10.1 [facility] Serum or plasma cholesterol in HDL measurement (mass/volume)Ordered By: Dr. Smyth on 08-29-2022 Cholesterol in HDL [Mass/Vol] 57 mg/dL >40 [facility] Comment on above: The drugs N-Acetylcy steine and Metamizole may falsely depress this assay. Reference Range HDL <40 mg/dL Low HDL Cholesterol HDL >or= 60 mg/dL High HDL Cholesterol Serum or plasma cholesterol in VLDL measurement (mass/volume)Ordered By: Dr. Smyth on 08-29-2022 Cholesterol in VLDL [Mass/Vol] 19 mg/dL 5-40 [facility] Serum or plasma creatinine m easurement (mass/volume)Ordered By: Dr. Smyth on 08-29-2022 Creatinine [Mass/Vol] 0.96 mg/dL 0.55-1.02 [facility] Comment on above: The validity of the calculated GFR & GFRAA in patients over 70 years has not been determined. Clinical correlation is essential. Serum or plasma low density lipoprotein (LDL) cholesterol measurement (mass/volume)Ordered By: Dr. Smyth on 08-29-2022 Cholesterol in LDL [Mass/Vol] 81 mg/dL 0-130 [facility] Serum or plasma urea nitroge n measurement (mass/volume)Ordered By: Dr. Smyth on 08-29-2022 Urea nitrogen [Mass/Vol] 14 mg/dL 7-18 [facility] Thin prep Papanicolaou smear with manual screeningOrdered By: Dr. Smyth on 08-29-2022 Thin prep Papanicolaou smear with manual screening 23 U/L 15-37 [facility] Thin prep Papanicolaou smear with manual screening 6 5-15 [facility] Absolute lymphocyte counton 04-07-2022 Lymphocytes Auto (Unsp spec) [#/Vol] 2.91 10*3/uL 0.83-4.51 [facility] Work Phone: Basophil percentageon 2021 Basophil percentage 0-5 SEEN /hpf 0-5 [facility] Work Phone: Bilirubin [Mass/Vol] 0.40 mg/dL 0.20-1.00 [facility] Work Phone: Comment on above: For patients on eltr ombopag therapy, use of Dimension [place] TBIL is not recommended. Chloride [Moles/Vol] 101 mmol/L 98-107 [facility] Work Phone: Glucose [Mass/Vol] 109 mg/dL 74-106 [facility] Work Phone: Comment on above: Fasting Glucose resu lt from 100 to 125 mg/dL suggests IMPAIRED HOMEOSTASIS per A.D.A. criteria. Potassium [Moles/Vol] 2.9 mmol/L 3.5-5.1 [facility] Work Phone: Protein [Mass/Vol] 7.4 g/dL 6.4-8.2 [facility] Work Phone: Sodium [Moles/Vol] 137 mmol/L 136-145 [facility] Work Phone: Basophils/100 WBC (Bld) 0.3 % 0-1 [facility] Work Phone: [phone] Eosinophils/100 WBC (Bld) 2.3 % 0-5 [facility] Work Phone: Neutrophils (Bld) [#/Vol] 2.9 10*3/uL 2.0-7.7 [facility] Work Phone: Neutrophils/100 WBC (Bld) 44.8 % 47-70 [facility] Work Phone: WBC (Bld) [#/Vol] 6.4 10*3/uL 4.4-11.0 [facility] Work Phone: Bilirubin Test strip Ql (U)o n 04-07-2022 Bilirubin Ql (U) Negative Negative [facility] Work Phone: Blood erythrocytes count (nu mber/volume)on 04-07-2022 RBC (Bld) [#/Vol] 4.46 10*6/uL 4.2-5.4 [facility] Work Phone: Blood hemoglobin measurement (mass/volume)on 04-07-2022 Hemoglobin (Bld) [Mass/Vol] 13.6 g/dL 12.0-15.0 [facility] Work Phone: Blood lymphocytes/100 leukoc yteson 04-07-2022 Lymphocytes/100 WBC (Bld) 45.4 % 19-41 [facility] Work Phone: Blood monocytes/100 leukocyt eson 04-07-2022 Monocytes/100 WBC (Bld) 6.9 % 0-10 [facility] Work Phone: Blood platelet mean volumeon 04-07-2022 Platelet mean volume (Bld) [Entitic vol] 9.8 fL 6.2-12.0 [facility] Work Phone: Determination of erythrocyte mean corpuscular volume (MCV)on 04-07-2022 MCV (RBC) [Entitic vol] 91.3 fL 81-99 [facility] Work Phone: Hematocrit Auto (Bld) [Volum e fraction]on 04-07-2022 Hematocrit (Bld) [Volume fraction] 40.7 % 37-47 [facility] Work Phone: Ketones Test strip Ql (U)on 04-07-2022 Ketones Ql (U) Negative Negative [facility] Work Phone: Laboratory - Chemistry and C hemistry - challengeon 04-07-2022 ALP [Catalytic activity/Vol] 100 U/L 45-117 [facility] Work Phone: ALT [Catalytic activity/Vol] 39 U/L 13-56 [facility] Work Phone: CO2 [Moles/Vol] 29.0 mmol/L 21.0-32.0 [facility] Work Phone: Globulin (S) [Mass/Vol] 4.2 g/dL 2.2-4.2 [facility] Work Phone: Urea nitrogen/Creatinine [Mass ratio] 13.2 mg/mg 10-20 [facility] Work Phone: Laboratory - Hematology and Cell countson 04-07-2022 Erythrocyte distribution width (RBC) [Entitic vol] 41.7 fL 35.1-43.9 [facility] Work Phone: Erythrocyte distribution width (RBC) [Ratio] 12.5 % 11.6-14.6 [facility] Work Phone: Immature granulocytes/100 WBC (Bld) 0.300 % 0.0-0.9 [facility] Work Phone: Comment on above: IG% - Immature Granu locytes (promyelocytes, myelocytes and metamyelocytes) > 1% indicates that a LEFT SHIFT is Present. MCH (RBC) [Entitic mass] 30.5 pg 27.0-32.0 [facility] Work Phone: Nucleated RBC/100 WBC (Bld) [Ratio] 0 % 0-5 [facility] Work Phone: Laboratory - Microbiology an d Antimicrobial susceptibilityon 04-07-2022 SARS-CoV-2 (COVID-19) RNA MERLIN+probe Ql (Unsp spec) Not detected Not Detect [facility] Work Phone: Comment on above: Normal Reference Ran ge: Not DetectedMethod:(RT-PCR) real-time reverse transcriptase PCRLuminex MEL Instrument*The Food and Drug Administration (FDA) has issued an Emergency Use Authorization (EAU) for the MEL SARS-CoV-2 Assay for the rapid detection of the virus that causes COVID-19. This test has been validated, but the FDAs independent review of this validation is pending.*Negative results do not preclude infection and should not be used as the sole basis for treatment or patient management. Optimum specimen types and timing for peak viral levels during infections caused by SARS-CoV-2 have not been determined. Collection of multiple specimens from the same patient may be necessary to detect the virus. The possibility of a false negative result should be considered if the patient has clinical presentation or has had recent exposure. MCHC Auto (RBC) [Mass/Vol]on 04-07-2022 MCHC (RBC) [Mass/Vol] 33.4 g/dL 32-36 [facility] Work Phone: Mucus LM Ql (Urine sed)on Mucus Ql (Urine sed) 0 SEEN /hpf [facility] Work Phone: Nitrite Test strip Ql (U)on 04-07-2022 Nitrite Ql (U) Negative Negative [facility] Work Phone: No Panel Informationon 04-07 Estimated GFR (MDRD) Amer 72 mL/min >60 [facility] Work Phone: Comment on above: GFR Calc Estimated GFR (MDRD) Non-Af Amer 60 mL/min >60 [facility] Work Phone: Comment on above: Non- GFR Calc Platelets bldon 04-07-2022 Platelets (Bld) [#/Vol] 299 10*3/uL 150-450 [facility] Work Phone: Protein Test strip Ql (U)on 04-07-2022 Protein Ql (U) Negative Negative [facility] Work Phone: Serum or plasma albumin david urement (mass/volume)on 04-07-2022 Albumin [Mass/Vol] 3.2 g/dL 3.2-5.0 [facility] Work Phone: Serum or plasma albumin/glob ulin mass ratioon 04-07-2022 Albumin/Globulin [Mass ratio] 0.8 {ratio} 0.9-2.4 [facility] Work Phone: Serum or plasma calcium david urement (mass/volume)on 04-07-2022 Calcium [Mass/Vol] 8.9 mg/dL 8.5-10.1 [facility] Work Phone: Serum or plasma creatinine m easurement (mass/volume)on 04-07-2022 Creatinine [Mass/Vol] 0.98 mg/dL 0.55-1.02 [facility] Work Phone: Comment on above: The validity of the calculated GFR & GFRAA in patients over 70 years has not been determined. Clinical correlation is essential. Serum or plasma urea nitroge n measurement (mass/volume)on 04-07-2022 Urea nitrogen [Mass/Vol] 13 mg/dL 7-18 [facility] Work Phone: Squamous epithelial cells de tection in urine sediment by light microscopyon 04-07-2022 Epithelial cells.squamous LM Ql (Urine sed) 0-5 SEEN /hpf 5-10 [facility] Work Phone: Thin prep Papanicolaou smear with manual screeningon 04-07-2022 Thin prep Papanicolaou smear with manual screening 32 U/L 15-37 [facility] Work Phone: Thin prep Papanicolaou smear with manual screening 7 5-15 [facility] Work Phone: Urine blood detectionon 03-16 RBC Ql (U) Negative Negative [facility] Work Phone: RBC Ql (U) 0 SEEN /hpf 0-5 [facility] Work Phone: Urine clarityon 04-07-2022 Clarity (U) Clear Clear [facility] Work Phone: Urine color determinationon 04-07-2022 Color (U) Yellow Yellow [facility] Work Phone: Urine glucose detectionon Glucose Ql (U) Normal mg/dl Normal [facility] Work Phone: Urine leukocyte esterase det ection by dipstickon 04-07-2022 Leukocyte esterase Test strip Ql (U) 500 /ul Negative [facility] Work Phone: Urine pHon 04-07-2022 pH (U) 6.5 [pH] 5.0 - 8.0 [facility] Work Phone: Urine sediment bacteria coun t by microscopy (number/high power field)on 04-07-2022 Bacteria LM.HPF (Urine sed) [#/Area] 0 /[HPF] None Seen [facility] Work Phone: Urine specific gravity measu rementon 04-07-2022 Specific gravity (U) [Rel density] 1.010 1.002-1.030 [facility] Work Phone: Urobilinogen Auto test strip Ql (U)on 04-07-2022 Urobilinogen Ql (U) Normal mg/dl Normal [facility] Work Phone: Absolute lymphocyte counton 04-03-2022 Lymphocytes Auto (Unsp spec) [#/Vol] 1.55 10*3/uL 0.83-4.51 [facility] Work Phone: Basophil percentageon 2021 Basophils/100 WBC (Bld) 0.4 % 0-1 [facility] Work Phone: Chloride [Moles/Vol] 99 mmol/L 98-107 [facility] Work Phone: Eosinophils/100 WBC (Bld) 0.8 % 0-5 [facility] Work Phone: Glucose [Mass/Vol] 134 mg/dL 74-106 [facility] Work Phone: Comment on above: Fasting Glucose resu lt greater than or equal to 126 mg/dL suggests DIABETES MELLITUS per A.D.A. criteria. Neutrophils (Bld) [#/Vol] 7.9 10*3/uL 2.0-7.7 [facility] Work Phone: Neutrophils/100 WBC (Bld) 74.7 % 47-70 [facility] Work Phone: Potassium [Moles/Vol] 3.2 mmol/L 3.5-5.1 [facility] Work Phone: Sodium [Moles/Vol] 138 mmol/L 136-145 [facility] Work Phone: WBC (Bld) [#/Vol] 10.6 10*3/uL 4.4-11.0 [facility] Work Phone: Basophil percentage 5-10 SEEN /hpf 0-5 [facility] Work Phone: Bilirubin Test strip Ql (U)o n 04-03-2022 Bilirubin Ql (U) 3 mg/dL Negative [facility] Work Phone: Comment on above: COLOR OF URINE MAY A FFECT DIPSTICK RESULTS. Blood erythrocytes count (nu mber/volume)on 04-03-2022 RBC (Bld) [#/Vol] 4.49 10*6/uL 4.2-5.4 [facility] Work Phone: Blood hemoglobin measurement (mass/volume)on 04-03-2022 Hemoglobin (Bld) [Mass/Vol] 13.5 g/dL 12.0-15.0 [facility] Work Phone: Blood lymphocytes/100 leukoc yteson 04-03-2022 Lymphocytes/100 WBC (Bld) 14.6 % 19-41 [facility] Work Phone: Blood monocytes/100 leukocyt eson 04-03-2022 Monocytes/100 WBC (Bld) 9.2 % 0-10 [facility] Work Phone: Blood platelet mean volumeon 04-03-2022 Platelet mean volume (Bld) [Entitic vol] 9.4 fL 6.2-12.0 [facility] Work Phone: Determination of erythrocyte mean corpuscular volume (MCV)on 04-03-2022 MCV (RBC) [Entitic vol] 91.1 fL 81-99 [facility] Work Phone: Hematocrit Auto (Bld) [Volum e fraction]on 04-03-2022 Hematocrit (Bld) [Volume fraction] 40.9 % 37-47 [facility] Work Phone: Ketones Test strip Ql (U)on 04-03-2022 Ketones Ql (U) 5 mg/dl Negative [facility] Work Phone: Laboratory - Chemistry and C hemistry - challengeon 04-03-2022 CO2 [Moles/Vol] 31.0 mmol/L 21.0-32.0 [facility] Work Phone: Urea nitrogen/Creatinine [Mass ratio] 16.1 mg/mg 04-03 [facility] Work Phone: Laboratory - Hematology and Cell countson 04-03-2022 Erythrocyte distribution width (RBC) [Entitic vol] 41.8 fL 35.1-43.9 [facility] Work Phone: Erythrocyte distribution width (RBC) [Ratio] 12.6 % 11.6-14.6 [facility] Work Phone: Immature granulocytes/100 WBC (Bld) 0.300 % 0.0-0.9 [facility] Work Phone: Comment on above: IG% - Immature Granu locytes (promyelocytes, myelocytes and metamyelocytes) > 1% indicates that a LEFT SHIFT is Present. MCH (RBC) [Entitic mass] 30.1 pg 27.0-32.0 [facility] Work Phone: Nucleated RBC/100 WBC (Bld) [Ratio] 0 % 0-5 [facility] Work Phone: MCHC Auto (RBC) [Mass/Vol]on 04-03-2022 MCHC (RBC) [Mass/Vol] 33.0 g/dL 32-36 [facility] Work Phone: Mucus LM Ql (Urine sed)on Mucus Ql (Urine sed) 0 SEEN /hpf [facility] Work Phone: Nitrite Test strip Ql (U)on 04-03-2022 Nitrite Ql (U) Negative Negative [facility] Work Phone: No Panel Informationon 04-03 Estimated Creatinine Clearance Calc 48.05 ml/min [facility] Work Phone: Estimated GFR (MDRD) Amer 62 mL/min >60 [facility] Work Phone: Comment on above: GFR Calc Estimated GFR (MDRD) Non-Af Amer 52 mL/min >60 [facility] Work Phone: Comment on above: Non- GFR Calc Platelets bldon 04-03-2022 Platelets (Bld) [#/Vol] 267 10*3/uL 150-450 [facility] Work Phone: Protein Test strip Ql (U)on 04-03-2022 Protein Ql (U) 30 mg/dl Negative [facility] Work Phone: Serum or plasma calcium david urement (mass/volume)on 04-03-2022 Calcium [Mass/Vol] 9.1 mg/dL 8.5-10.1 [facility] Work Phone: Serum or plasma creatinine m easurement (mass/volume)on 04-03-2022 Creatinine [Mass/Vol] 1.12 mg/dL 0.55-1.02 [facility] Work Phone: Comment on above: The validity of the calculated GFR & GFRAA in patients over 70 years has not been determined. Clinical correlation is essential. Serum or plasma urea nitroge n measurement (mass/volume)on 04-03-2022 Urea nitrogen [Mass/Vol] 18 mg/dL 7-18 [facility] Work Phone: Squamous epithelial cells de tection in urine sediment by light microscopyon 04-03-2022 Epithelial cells.squamous LM Ql (Urine sed) 0-5 SEEN /hpf 5-10 [facility] Work Phone: [phone] Thin prep Papanicolaou smear with manual screeningon 04-03-2022 Thin prep Papanicolaou smear with manual screening 8 5-15 [facility] Work Phone: Urine blood detectionon 03-16 RBC Ql (U) Negative Negative [facility] Work Phone: RBC Ql (U) 0 SEEN /hpf 0-5 [facility] Work Phone: Urine clarityon 04-03-2022 Clarity (U) Clear Clear [facility] Work Phone: Urine color determinationon 04-03-2022 Color (U) Yellow Yellow [facility] Work Phone: Urine glucose detectionon Glucose Ql (U) Normal mg/dl Normal [facility] Work Phone: Urine leukocyte esterase det ection by dipstickon 04-03-2022 Leukocyte esterase Test strip Ql (U) 500 /ul Negative [facility] Work Phone: Urine pHon 04-03-2022 pH (U) 6.0 [pH] 5.0 - 8.0 [facility] Work Phone: Urine sediment bacteria coun t by microscopy (number/high power field)on 04-03-2022 Bacteria LM.HPF (Urine sed) [#/Area] 1 /[HPF] None Seen [facility] Work Phone: Urine specific gravity measu rementon 04-03-2022 Specific gravity (U) [Rel density] 1.030 1.002-1.030 [facility] Work Phone: Urobilinogen Auto test strip Ql (U)on 04-03-2022 Urobilinogen Ql (U) Normal mg/dl Normal [facility] Work Phone: Basophil percentageon 2021 Chloride [Moles/Vol] 101 mmol/L 98-107 [facility] Work Phone: Glucose [Mass/Vol] 116 mg/dL 74-106 [facility] Work Phone: Comment on above: Fasting Glucose resu lt from 100 to 125 mg/dL suggests IMPAIRED HOMEOSTASIS per A.D.A. criteria. Potassium [Moles/Vol] 3.4 mmol/L 3.5-5.1 [facility] Work Phone: Sodium [Moles/Vol] 137 mmol/L 136-145 [facility] Work Phone: Laboratory - Chemistry and C hemistry - challengeon 01-21-2022 CO2 [Moles/Vol] 29.0 mmol/L 21.0-32.0 [facility] Work Phone: Urea nitrogen/Creatinine [Mass ratio] 17.6 mg/mg 10-20 [facility] Work Phone: No Panel Informationon 01-21 Estimated GFR (MDRD) Amer 70 mL/min >60 [facility] Work Phone: Comment on above: GFR Calc Estimated GFR (MDRD) Non-Af Amer 58 mL/min >60 [facility] Work Phone: Comment on above: Non- GFR Calc Serum or plasma calcium david urement (mass/volume)on 01-21-2022 Calcium [Mass/Vol] 9.2 mg/dL 8.5-10.1 [facility] Work Phone: Serum or plasma creatinine m easurement (mass/volume)on 01-21-2022 Creatinine [Mass/Vol] 1.02 mg/dL 0.55-1.02 [facility] Work Phone: Comment on above: The validity of the calculated GFR & GFRAA in patients over 70 years has not been determined. Clinical correlation is essential. Serum or plasma urea nitroge n measurement (mass/volume)on 01-21-2022 Urea nitrogen [Mass/Vol] 18 mg/dL 7-18 [facility] Work Phone: Thin prep Papanicolaou smear with manual screeningon 01-21-2022 Thin prep Papanicolaou smear with manual screening 7 5-15 [facility] Work Phone: Basophil percentageon 2021 Chloride [Moles/Vol] 101 mmol/L 98-107 [facility] Work Phone: Glucose [Mass/Vol] 129 mg/dL 74-106 [facility] Work Phone: Comment on above: Fasting Glucose resu lt greater than or equal to 126 mg/dL suggests DIABETES MELLITUS per A.D.A. criteria. Potassium [Moles/Vol] 3.2 mmol/L 3.5-5.1 [facility] Work Phone: Sodium [Moles/Vol] 138 mmol/L 136-145 [facility] Work Phone: Laboratory - Chemistry and C hemistry - challengeon 01-14-2022 CO2 [Moles/Vol] 31.0 mmol/L 21.0-32.0 [facility] Work Phone: Urea nitrogen/Creatinine [Mass ratio] 18.6 mg/mg 10-20 [facility] Work Phone: No Panel Informationon 01-14 Estimated GFR (MDRD) Amer 74 mL/min >60 [facility] Work Phone: Comment on above: GFR Calc Estimated GFR (MDRD) Non-Af Amer 61 mL/min >60 [facility] Work Phone: Comment on above: Non- GFR Calc Serum or plasma calcium david urement (mass/volume)on 01-14-2022 Calcium [Mass/Vol] 9.2 mg/dL 8.5-10.1 [facility] Work Phone: Serum or plasma creatinine m easurement (mass/volume)on 01-14-2022 Creatinine [Mass/Vol] 0.97 mg/dL 0.55-1.02 [facility] Work Phone: Comment on above: The validity of the calculated GFR & GFRAA in patients over 70 years has not been determined. Clinical correlation is essential. Serum or plasma urea nitroge n measurement (mass/volume)on 01-14-2022 Urea nitrogen [Mass/Vol] 18 mg/dL 7-18 [facility] Work Phone: Thin prep Papanicolaou smear with manual screeningon 01-14-2022 Thin prep Papanicolaou smear with manual screening 6 5-15 [facility] Work Phone: Basophil percentageon 2021 Chloride [Moles/Vol] 103 mmol/L 98-107 [facility] Work Phone: Glucose [Mass/Vol] 143 mg/dL 74-106 [facility] Work Phone: Comment on above: Fasting Glucose resu lt greater than or equal to 126 mg/dL suggests DIABETES MELLITUS per A.D.A. criteria. Potassium [Moles/Vol] 3.6 mmol/L 3.5-5.1 [facility] Work Phone: Sodium [Moles/Vol] 137 mmol/L 136-145 [facility] Work Phone: Laboratory - Chemistry and C hemistry - challengeon 11-05-2021 CO2 [Moles/Vol] 26.0 mmol/L 21.0-32.0 [facility] Work Phone: Urea nitrogen/Creatinine [Mass ratio] 14.8 mg/mg 10-20 [facility] Work Phone: No Panel Informationon 11-05 Estimated GFR (MDRD) Amer 76 mL/min >60 [facility] Work Phone: Comment on above: GFR Calc Estimated GFR (MDRD) Non-Af Amer 63 mL/min >60 [facility] Work Phone: Comment on above: Non- GFR Calc Serum or plasma calcium david urement (mass/volume)on 11-05-2021 Calcium [Mass/Vol] 8.9 mg/dL 8.5-10.1 [facility] Work Phone: Serum or plasma creatinine m easurement (mass/volume)on 11-05-2021 Creatinine [Mass/Vol] 0.94 mg/dL 0.55-1.02 [facility] Work Phone: Comment on above: The validity of the calculated GFR & GFRAA in patients over 70 years has not been determined. Clinical correlation is essential. Serum or plasma urea nitroge n measurement (mass/volume)on 11-05-2021 Urea nitrogen [Mass/Vol] 14 mg/dL 7-18 [facility] Work Phone: Thin prep Papanicolaou smear with manual screeningon 11-05-2021 Thin prep Papanicolaou smear with manual screening 8 5-15 [facility] Work Phone: Absolute lymphocyte counton 10-08-2021 Lymphocytes Auto (Unsp spec) [#/Vol] 2.05 10*3/uL 0.83-4.51 [facility] Work Phone: Basophil percentageon 2021 Basophils/100 WBC (Bld) 0.7 % 0-1 [facility] Work Phone: Bilirubin [Mass/Vol] 0.40 mg/dL 0.20-1.00 [facility] Work Phone: Comment on above: For patients on eltr ombopag therapy, use of Dimension [place] TBIL is not recommended. Chloride [Moles/Vol] 106 mmol/L 98-107 [facility] Work Phone: Eosinophils/100 WBC (Bld) 2.7 % 0-5 [facility] Work Phone: Glucose [Mass/Vol] 107 mg/dL 74-106 [facility] Work Phone: Comment on above: Fasting Glucose resu lt from 100 to 125 mg/dL suggests IMPAIRED HOMEOSTASIS per A.D.A. criteria. Neutrophils (Bld) [#/Vol] 5.8 10*3/uL 2.0-7.7 [facility] Work Phone: Neutrophils/100 WBC (Bld) 65.0 % 47-70 [facility] Work Phone: Potassium [Moles/Vol] 4.0 mmol/L 3.5-5.1 [facility] Work [facility]: Protein [Mass/Vol] 7.2 g/dL 6.4-8.2 [facility]: [phone] Sodium [Moles/Vol] 138 mmol/L 136-145 [facility] Work Phone: WBC (Bld) [#/Vol] 8.9 10*3/uL 4.4-11.0 [facility] Work Phone: Blood erythrocytes count (nu mber/volume)on 10-08-2021 RBC (Bld) [#/Vol] 4.35 10*6/uL 4.2-5.4 [facility] Blood hemoglobin measurement (mass/volume)on 10-08-2021 Hemoglobin (Bld) [Mass/Vol] 13.3 g/dL 12.0-15.0 [facility] Work Phone: Blood lymphocytes/100 leukoc yteson 10-08-2021 Lymphocytes/100 WBC (Bld) 23.1 % 19-41 [facility] Work Phone: Blood monocytes/100 leukocyt eson 10-08-2021 Monocytes/100 WBC (Bld) 8.0 % 0-10 [facility] Work Phone: Blood platelet mean volumeon 10-08-2021 Platelet mean volume (Bld) [Entitic vol] 9.7 fL 6.2-12.0 [facility] Work Phone: Determination of erythrocyte mean corpuscular volume (MCV)on 10-08-2021 MCV (RBC) [Entitic vol] 93.8 fL 81-99 [facility] Work Phone: Hematocrit Auto (Bld) [Volum e fraction]on 10-08-2021 Hematocrit (Bld) [Volume fraction] 40.8 % 37-47 [facility] Work Phone: Laboratory - Chemistry and C hemistry - challengeon 10-08-2021 ALP [Catalytic activity/Vol] 85 U/L 45-117 [facility] Work Phone: ALT [Catalytic activity/Vol] 43 U/L 13-56 [facility] Work Phone: CO2 [Moles/Vol] 26.0 mmol/L 21.0-32.0 [facility] Work Phone: Globulin (S) [Mass/Vol] 3.7 g/dL 2.2-4.2 [facility] Work Phone: Magnesium [Mass/Vol] 2.3 mg/dL 1.6-2.6 [facility] Work Phone: Natriuretic peptide B (Bld) [Mass/Vol] 23.2 pg/mL 0-100 [facility] Work Phone: Urea nitrogen/Creatinine [Mass ratio] 30.7 mg/mg 10-20 [facility] Work Phone: Laboratory - Hematology and Cell countson 10-08-2021 Erythrocyte distribution width (RBC) [Entitic vol] 46.0 fL 35.1-43.9 [facility] Work Phone: Erythrocyte distribution width (RBC) [Ratio] 13.2 % 11.6-14.6 [facility] Work Phone: Immature granulocytes/100 WBC (Bld) 0.500 % 0.0-0.9 [facility] Work Phone: Comment on above: IG% - Immature Granu locytes (promyelocytes, myelocytes and metamyelocytes) > 1% indicates that a LEFT SHIFT is Present. MCH (RBC) [Entitic mass] 30.6 pg 27.0-32.0 [facility] Work Phone: Nucleated RBC/100 WBC (Bld) [Ratio] 0 % 0-5 [facility] Work Phone: MCHC Auto (RBC) [Mass/Vol]on 10-08-2021 MCHC (RBC) [Mass/Vol] 32.6 g/dL 32-36 [facility] Work Phone: No Panel Informationon 10-08 Estimated GFR (MDRD) Amer 86 mL/min >60 [facility] Work Phone: Comment on above: GFR Calc Estimated GFR (MDRD) Non-Af Amer 71 mL/min >60 [facility] Work Phone: Comment on above: Non- GFR Calc Platelets bldon 10-08-2021 Platelets (Bld) [#/Vol] 277 10*3/uL 150-450 [facility] Work Phone: Serum or plasma albumin david urement (mass/volume)on 10-08-2021 Albumin [Mass/Vol] 3.5 g/dL 3.2-5.0 [facility] Work Phone: Serum or plasma albumin/glob ulin mass ratioon 10-08-2021 Albumin/Globulin [Mass ratio] 0.9 {ratio} 0.9-2.4 [facility] Work Phone: Serum or plasma calcium david urement (mass/volume)on 10-08-2021 Calcium [Mass/Vol] 8.9 mg/dL 8.5-10.1 [facility] Work Phone: Serum or plasma creatinine m easurement (mass/volume)on 10-08-2021 Creatinine [Mass/Vol] 0.85 mg/dL 0.55-1.02 [facility] Work Phone: Comment on above: The validity of the calculated GFR & GFRAA in patients over 70 years has not been determined. Clinical correlation is essential. Serum or plasma urea nitroge n measurement (mass/volume)on 10-08-2021 Urea nitrogen [Mass/Vol] 26 mg/dL 7-18 [facility] Work Phone: Thin prep Papanicolaou smear with manual screeningon 10-08-2021 Thin prep Papanicolaou smear with manual screening 25 U/L 15-37 [facility] Work Phone: [phone] Thin prep Papanicolaou smear with manual screening 6 5-15 [facility] Work Phone: Absolute lymphocyte counton 09-04-2021 Lymphocytes Auto (Unsp spec) [#/Vol] 1.78 10*3/uL 0.83-4.51 [facility] Work Phone: [phone] Basophil percentageon 2021 Basophils/100 WBC (Bld) 0.3 % 0-1 [facility] Work Phone: Bilirubin [Mass/Vol] 0.60 mg/dL 0.20-1.00 [facility] Work Phone: Comment on above: For patients on eltr ombopag therapy, use of Dimension [place] TBIL is not recommended. Chloride [Moles/Vol] 103 mmol/L 98-107 [facility] Work Phone: Cholesterol [Mass/Vol] 193 mg/dL <200 [facility] Work Phone: Comment on above: <200 mg/dL Desirable 200-240 mg/dL Borderline >240 mg/dL High Risk Eosinophils/100 WBC (Bld) 0.7 % 0-5 [facility] Work Phone: Glucose [Mass/Vol] 128 mg/dL 74-106 [facility] Work Phone: Comment on above: Fasting Glucose resu lt greater than or equal to 126 mg/dL suggests DIABETES MELLITUS per A.D.A. criteria. Neutrophils (Bld) [#/Vol] 6.9 10*3/uL 2.0-7.7 [facility] Work Phone: Neutrophils/100 WBC (Bld) 72.8 % 47-70 [facility] Work Phone: Potassium [Moles/Vol] 3.7 mmol/L 3.5-5.1 [facility] Work Phone: Protein [Mass/Vol] 7.2 g/dL 6.4-8.2 [facility] Work Phone: Sodium [Moles/Vol] 137 mmol/L 136-145 [facility] Work Phone: Triglyceride [Mass/Vol] 79 mg/dL <199 [facility] Work Phone: Comment on above: The drugs N-Acetylcy steine and Metamizole may falsely depress this assay.Serum Triglycerides Reference Interval Normal <150 mg/dL Borderline high 150 - 199 mg/dL High 200 - 499 mg/dL Very High > or = 500 mg/dL WBC (Bld) [#/Vol] 9.5 10*3/uL 4.4-11.0 [facility] Work Phone: Blood erythrocytes count (nu mber/volume)on 09-04-2021 RBC (Bld) [#/Vol] 4.58 10*6/uL 4.2-5.4 [facility] Work Phone: Blood hemoglobin measurement (mass/volume)on 09-04-2021 Hemoglobin (Bld) [Mass/Vol] 13.9 g/dL 12.0-15.0 [facility] Work Phone: Blood lymphocytes/100 leukoc yteson 09-04-2021 Lymphocytes/100 WBC (Bld) 18.8 % 19-41 [facility] Work Phone: Blood monocytes/100 leukocyt eson 09-04-2021 Monocytes/100 WBC (Bld) 7.1 % 0-10 [facility] Work Phone: Blood platelet mean volumeon 09-04-2021 Platelet mean volume (Bld) [Entitic vol] 9.9 fL 6.2-12.0 [facility] Work Phone: Determination of erythrocyte mean corpuscular volume (MCV)on 09-04-2021 MCV (RBC) [Entitic vol] 93.9 fL 81-99 [facility] Work Phone: Hematocrit Auto (Bld) [Volum e fraction]on 09-04-2021 Hematocrit (Bld) [Volume fraction] 43.0 % 37-47 [facility] Work Phone: Laboratory - Chemistry and C hemistry - challengeon 09-04-2021 ALP [Catalytic activity/Vol] 96 U/L 45-117 [facility] Work Phone: ALT [Catalytic activity/Vol] 60 U/L 13-56 [facility] Work Phone: CO2 [Moles/Vol] 28.0 mmol/L 21.0-32.0 [facility] Work Phone: Globulin (S) [Mass/Vol] 3.7 g/dL 2.2-4.2 [facility] Work Phone: Urea nitrogen/Creatinine [Mass ratio] 23.2 mg/mg 10-20 [facility] Work Phone: Laboratory - Hematology and Cell countson 09-04-2021 Erythrocyte distribution width (RBC) [Entitic vol] 44.5 fL 35.1-43.9 [facility] Work Phone: Erythrocyte distribution width (RBC) [Ratio] 13.0 % 11.6-14.6 [facility] Work Phone: Immature granulocytes/100 WBC (Bld) 0.300 % 0.0-0.9 [facility] Work Phone: Comment on above: IG% - Immature Granu locytes (promyelocytes, myelocytes and metamyelocytes) > 1% indicates that a LEFT SHIFT is Present. MCH (RBC) [Entitic mass] 30.3 pg 27.0-32.0 [facility] Work Phone: Nucleated RBC/100 WBC (Bld) [Ratio] 0 % 0-5 [facility] Work Phone: MCHC Auto (RBC) [Mass/Vol]on 09-04-2021 MCHC (RBC) [Mass/Vol] 32.3 g/dL 32-36 [facility] Work Phone: No Panel Informationon 09-04 Estimated GFR (MDRD) Amer 85 mL/min >60 [facility] Work Phone: Comment on above: GFR Calc Estimated GFR (MDRD) Non-Af Amer 70 mL/min >60 [facility] Work Phone: Comment on above: Non- GFR Calc Thyroid Stimulating Hormone (TSH) 1.19 uIU/mL 0.358-3.74 [facility] Work Phone: Platelets bldon 09-04-2021 Platelets (Bld) [#/Vol] 320 10*3/uL 150-450 [facility] Work Phone: Serum or plasma albumin david urement (mass/volume)on 09-04-2021 Albumin [Mass/Vol] 3.5 g/dL 3.2-5.0 [facility] Work Phone: Serum or plasma albumin/glob ulin mass ratioon 09-04-2021 Albumin/Globulin [Mass ratio] 0.9 {ratio} 0.9-2.4 [facility] Work Phone: Serum or plasma calcium david urement (mass/volume)on 09-04-2021 Calcium [Mass/Vol] 9.0 mg/dL 8.5-10.1 [facility] Work Phone: Serum or plasma cholesterol in HDL measurement (mass/volume)on 09-04-2021 Cholesterol in HDL [Mass/Vol] 75 mg/dL >40 [facility] Work Phone: Comment on above: The drugs N-Acetylcy steine and Metamizole may falsely depress this assay. Reference Range HDL <40 mg/dL Low HDL Cholesterol HDL >or= 60 mg/dL High HDL Cholesterol Serum or plasma cholesterol in VLDL measurement (mass/volume)on 09-04-2021 Cholesterol in VLDL [Mass/Vol] 16 mg/dL 5-40 [facility] Work Phone: Serum or plasma creatinine m easurement (mass/volume)on 09-04-2021 Creatinine [Mass/Vol] 0.86 mg/dL 0.55-1.02 [facility] Work Phone: Comment on above: The validity of the calculated GFR & GFRAA in patients over 70 years has not been determined. Clinical correlation is essential. Serum or plasma low density lipoprotein (LDL) cholesterol measurement (mass/volume)on 09-04-2021 Cholesterol in LDL [Mass/Vol] 102 mg/dL 0-130 [facility] Work Phone: Serum or plasma urea nitroge n measurement (mass/volume)on 09-04-2021 Urea nitrogen [Mass/Vol] 20 mg/dL 7-18 [facility] Work Phone: Thin prep Papanicolaou smear with manual screeningon 09-04-2021 Thin prep Papanicolaou smear with manual screening 27 U/L 15-37 [facility] Work Phone: Thin prep Papanicolaou smear with manual screening 6 5-15 [facility] Work Phone: NOVEL CORONAVIRUS NASOPHARYN GEAL - [facility] SPECIMEN ONLYon 01-23-2020 SARS-COV-2 NOT DETECTED Normal NOT DETECTED [facility] Comment on above: Order Comment: Submi tter Name: NINO WESTERN Agent Suspected: SARS-COV-2 This test was performed using real time PCR and has been approved for the qualitative detection of SARS-CoV-2 nucleic acid. The test has been authorized by the FDA under an emergency use authorization for use by authorized laboratories. Result Comment: Nega tive results do not preclude SARS-CoV-2 infection and should not be used as the sole basis for treatment or other patient management decisions. Optimum specimen types and timing for peak viral levels during infections caused by SARS-CoV-2 has not been determined. The possibility of a false negative result should especially be considered if the patient's recent exposures or clinical presentation suggest that SARS-CoV-2 infection is probable, and diagnostic tests for other causes of illness (e.g., other respiratory illness) are negative. Collection of a new specimen and re-testing may be necessary if the patient is critically ill or clinically deteriorating. Performed By: #### L [id number] #### [facility] (DEFAULT) [address] [place] [address] Culture, urine Bacteria identified Cx Nom (U) Mixed Gram Pos & Gram Neg Org [facility] Work Phone: Bacteria identified Cx Nom (U) Culture exhibits no growth. [facility] Work Phone: Vital Signs Date Time Vital Sign Value Performing Clinician Facility 10-26-2024 15:20-0400 Body temperature 97.1 [degF] Dr. Joseph Smyth MD Work Phone: [facility] 10-26-2024 15:20-0400 Diastolic blood pressure 76 mm[Hg] Dr. Joseph Smyth MD Work Phone: [facility] 10-26-2024 15:20-0400 Heart rate 68 /min Dr. Joseph Smyth MD Work Phone: [facility] 10-26-2024 15:20-0400 Respiratory rate 16 /min Dr. Joseph Smyth MD Work Phone: [facility] 10-26-2024 15:20-0400 SaO2% (BldA) [Mass fraction] 97 % Dr. Joseph Smyth MD Work Phone: [facility] 10-26-2024 15:20-0400 Systolic blood pressure 144 mm[Hg] Dr. Joseph Smyth MD Work Phone: [facility] 10-26-2024 13:44-0400 Body height 170.[address] Joseph Smyth MD Work Phone: [facility] 10-26-2024 13:44-0400 Body mass index (BMI) [Ratio] 47.4 kg/m2 Dr. Joseph Smyth MD Work Phone: [facility] 10-26-2024 13:44-0400 Body weight 137.[address] Joseph Smyth MD Work Phone: [facility] 09-23-2024 08:28-0400 Body mass index (BMI) [Ratio] 46.8 kg/m2 Dr. Joseph Smyth MD Work Phone: [facility] 09-23-2024 08:28-0400 Body temperature 96.3 [degF] Dr. Joseph Smyth MD Work Phone: [facility] 09-23-2024 08:28-0400 Body weight 135.[address] Joseph Smyth MD Work Phone: [facility] 09-23-2024 08:28-0400 Diastolic blood pressure 92 mm[Hg] Dr. Joseph Smyth MD Work Phone: [facility] 09-23-2024 08:28-0400 Heart rate 75 /min Dr. Joseph Smyth MD Work Phone: [facility] 09-23-2024 08:28-0400 Respiratory rate 16 /min Dr. Joseph Smyth MD Work Phone: [facility] 09-23-2024 08:28-0400 SaO2% (BldA) [Mass fraction] 95 % Dr. Joseph Smyth MD Work Phone: [facility] 09-23-2024 08:28-0400 Systolic blood pressure 158 mm[Hg] Dr. Joseph Smyth MD Work Phone: [facility] 08-29-2024 08:59-0400 Body mass index (BMI) [Ratio] 47.4 kg/m2 Dr. Joseph Smyth MD Work Phone: [facility] 08-29-2024 08:59-0400 Body temperature 97.4 [degF] Dr. Joseph Smyth MD Work Phone: [facility] 08-29-2024 08:59-0400 Body weight 137.[address] Joseph Smyth MD Work Phone: [facility] 08-29-2024 08:59-0400 Diastolic blood pressure 80 mm[Hg] Dr. Joseph Smyth MD Work Phone: [facility] 08-29-2024 08:59-0400 Heart rate 61 /min Dr. Joseph Smyth MD Work Phone: [facility] 08-29-2024 08:59-0400 Respiratory rate 16 /min Dr. Joseph Smyth MD Work Phone: [facility] 08-29-2024 08:59-0400 SaO2% (BldA) [Mass fraction] 97 % Dr. Joseph Smyth MD Work Phone: [facility] 08-29-2024 08:59-0400 Systolic blood pressure 130 mm[Hg] Dr. Joseph Smyth MD Work Phone: [facility] 08-21-2023 09:48-0500 Body height 170.7 cm Autumn Poole PA-C Work Phone: [phone] [place] [address] 08-21-2023 09:48-0500 Body mass index (BMI) [Ratio] 44.65 kg/m2 Autumn Poole PA-C Work Phone: [phone] [place] [address] 08-21-2023 09:48-0500 Body temperature 96.1 [degF] Autumn Poole PA-C Work Phone: [phone] [place] [address] 08-21-2023 09:48-0500 Body weight 130.1 kg Autumn Poole PA-C Work Phone: [facility] 08-21-2023 09:48-0500 Diastolic blood pressure 64 mm[Hg] Autumn Poole PA-C Work Phone: [phone] [place] [address] 08-21-2023 09:48-0500 Heart rate 73 /min Autumn Poole PA-C Work Phone: [phone] [place] [address] 08-21-2023 09:48-0500 Respiratory rate 18 /min Autumn Poole PA-C Work Phone: [facility] 08-21-2023 09:48-0500 SaO2% (BldA) [Mass fraction] 92 % Autumn Poole PA-C Work Phone: [facility] 08-21-2023 09:48-0500 Systolic blood pressure 131 mm[Hg] Autumn Poole PA-C Work Phone: [facility] 07-29-2023 09:00-0500 Body height 170.[address] Joseph Smyth Work Phone: [facility] 07-29-2023 09:00-0500 Body mass index (BMI) [Ratio] 45.1 kg/m2 Dr. Joseph Smyth Work Phone: [facility] 07-29-2023 09:00-0500 Body temperature 97.8 [degF] Dr. Joseph Smyth Work Phone: [facility] 07-29-2023 09:00-0500 Body weight 130.[address] Joseph Smyth Work Phone: [facility] 07-29-2023 09:00-0500 Diastolic blood pressure 88 mm[Hg] Dr. Joseph Smyth Work Phone: [facility] 07-29-2023 09:00-0500 Heart rate 78 /min Dr. Joseph Smyth Work Phone: [facility] 07-29-2023 09:00-0500 Respiratory rate 16 /min Dr. Joseph Smyth Work Phone: [facility] 07-29-2023 09:00-0500 SaO2% (BldA) [Mass fraction] 98 % Dr. Joseph Smyth Work Phone: [facility] 07-29-2023 09:00-0500 Systolic blood pressure 146 mm[Hg] Dr. Joseph Smyth Work Phone: [facility] 06-29-2023 09:00-0500 Body temperature 97 [degF] Dr. Joseph Smyth Work Phone: [facility] 06-29-2023 09:00-0500 Diastolic blood pressure 73 mm[Hg] Dr. Joseph Smyth Work Phone: [facility] 06-29-2023 09:00-0500 Heart rate 63 /min Dr. Joseph Smyth Work Phone: [facility] 06-29-2023 09:00-0500 Respiratory rate 16 /min Dr. Joseph Smyth Work Phone: [facility] 06-29-2023 09:00-0500 SaO2% (BldA) [Mass fraction] 94 % Dr. Joseph Smyth Work Phone: [facility] 06-29-2023 09:00-0500 Systolic blood pressure 125 mm[Hg] Dr. Joseph Smyth Work Phone: [facility] 06-29-2023 07:13-0500 Body height 170.[address] Joseph Smyth Work Phone: [facility] 06-29-2023 07:13-0500 Body mass index (BMI) [Ratio] 43.5 kg/m2 Dr. Joseph Smyth Work Phone: [facility] 06-29-2023 07:13-0500 Body weight 126.[address] Joseph Smyth Work Phone: [facility] 05-05-2023 08:05-0500 Body mass index (BMI) [Ratio] 44.4 kg/m2 Dr. Joseph Smyth Work Phone: [facility] 05-05-2023 08:05-0500 Body temperature 97.4 [degF] Dr. Joseph Smyth Work Phone: [facility] 05-05-2023 08:05-0500 Body weight 128.[address] Joseph Smyth Work Phone: [facility] 05-05-2023 08:05-0500 Diastolic blood pressure 76 mm[Hg] Dr. Joseph Smyth Work Phone: [facility] 05-05-2023 08:05-0500 Heart rate 58 /min Dr. Joseph Smyth Work Phone: [facility] 05-05-2023 08:05-0500 Respiratory rate 20 /min Dr. Joseph Smyth Work Phone: [facility] 05-05-2023 08:05-0500 SaO2% (BldA) [Mass fraction] 97 % Dr. Joseph Smyth Work Phone: [facility] 05-05-2023 08:05-0500 Systolic blood pressure 136 mm[Hg] Dr. Joseph Smyth Work Phone: [facility] 05-04-2023 09:00-0500 Body temperature 98.4 [degF] Dr. Joseph Smyth Work Phone: [facility] 05-04-2023 09:00-0500 Diastolic blood pressure 56 mm[Hg] Dr. Joseph Smyth Work Phone: [facility] 05-04-2023 09:00-0500 Heart rate 65 /min Dr. Joseph Smyth Work Phone: [facility] 05-04-2023 09:00-0500 Respiratory rate 16 /min Dr. Joseph Smyth Work Phone: [facility] 05-04-2023 09:00-0500 SaO2% (BldA) [Mass fraction] 97 % Dr. Joseph Smyth Work Phone: [facility] 05-04-2023 09:00-0500 Systolic blood pressure 124 mm[Hg] Dr. Joseph Smyth Work Phone: [facility] 05-04-2023 07:31-0500 Body height 170.[address] Joseph Smyth Work Phone: [facility] 05-04-2023 07:31-0500 Body mass index (BMI) [Ratio] 44.4 kg/m2 Dr. Joseph Smyth Work Phone: [facility] 05-04-2023 07:31-0500 Body weight 128.[address] Joseph Smyth Work Phone: [facility] 04-24-2023 09:15-0500 Body height 170.[address] Joseph Smyth Work Phone: [facility] 04-24-2023 09:15-0500 Body mass index (BMI) [Ratio] 44.3 kg/m2 Dr. Joseph Smyth Work Phone: [facility] 04-24-2023 09:15-0500 Body temperature 97.3 [degF] Dr. Joseph Smyth Work Phone: [facility] 04-24-2023 09:15-0500 Body weight 128.[address] Joseph Smyth Work Phone: [facility] 04-24-2023 09:15-0500 Diastolic blood pressure 84 mm[Hg] Dr. Joseph Smyth Work Phone: [facility] 04-24-2023 09:15-0500 Heart rate 65 /min Dr. Joseph Smyth Work Phone: [facility] 04-24-2023 09:15-0500 Respiratory rate 16 /min Dr. Joseph Smyth Work Phone: [facility] 04-24-2023 09:15-0500 SaO2% (BldA) [Mass fraction] 99 % Dr. Joseph Smyth Work Phone: [facility] 04-24-2023 09:15-0500 Systolic blood pressure 130 mm[Hg] Dr. Joseph Smyth Work Phone: [facility] 03-19-2023 09:10-0400 Body temperature 97.4 [degF] Dr. Joseph Smyth Work Phone: [facility] 03-19-2023 09:10-0400 Diastolic blood pressure 58 mm[Hg] Dr. Joseph Smyth Work Phone: [facility] 03-19-2023 09:10-0400 Heart rate 53 /min Dr. Joseph Smyth Work Phone: [facility] 03-19-2023 09:10-0400 Respiratory rate 16 /min Dr. Joseph Smyth Work Phone: [facility] 03-19-2023 09:10-0400 SaO2% (BldA) [Mass fraction] 99 % Dr. Joseph Smyth Work Phone: [facility] 03-19-2023 09:10-0400 Systolic blood pressure 124 mm[Hg] Dr. Joseph Smyth Work Phone: [facility] 03-19-2023 07:52-0400 Body mass index (BMI) [Ratio] 43.4 kg/m2 Dr. Joseph Smyth Work Phone: [facility] 03-19-2023 07:52-0400 Body weight [address] oJseph Smyth Work Phone: [facility] 02-27-2023 07:55-0400 Body height 170.[address] Joseph Smyth Work Phone: [facility] 02-27-2023 07:55-0400 Body mass index (BMI) [Ratio] 44.3 kg/m2 Dr. Joseph Smyth Work Phone: [facility] 02-27-2023 07:55-0400 Body temperature 95.2 [degF] Dr. Joseph Smyth Work Phone: [facility] 02-27-2023 07:55-0400 Body weight 128.[address] Joseph Smyth Work Phone: [facility] 02-27-2023 07:55-0400 Diastolic blood pressure 86 mm[Hg] Dr. Joseph Smyth Work Phone: [facility] 02-27-2023 07:55-0400 Heart rate 72 /min Dr. Joseph Smyth Work Phone: [facility] 02-27-2023 07:55-0400 Respiratory rate 18 /min Dr. Joseph Smyth Work Phone: [facility] 02-27-2023 07:55-0400 SaO2% (BldA) [Mass fraction] 95 % Dr. Joseph Smyth Work Phone: [facility] 02-27-2023 07:55-0400 Systolic blood pressure 134 mm[Hg] Dr. Joseph Smyth Work Phone: [facility] 02-20-2023 13:27-0400 Respiratory rate 16 /min Dr. Joseph Smyth Work Phone: [facility] 02-20-2023 10:08-0400 Body height 170.[address] Joseph Smyth Work Phone: [facility] 02-20-2023 10:08-0400 Body mass index (BMI) [Ratio] 44.2 kg/m2 Dr. Joseph Smyth Work Phone: [facility] 02-20-2023 10:08-0400 Body temperature 97.1 [degF] Dr. Joseph Smyth Work Phone: [facility] 02-20-2023 10:08-0400 Body weight 128.[address] Joseph Smyth Work Phone: [facility] 02-20-2023 10:08-0400 Diastolic blood pressure 108 mm[Hg] Dr. Joseph Smyth Work Phone: [facility] 02-20-2023 10:08-0400 Heart rate 84 /min Dr. Joseph Smyth Work Phone: [facility] 02-20-2023 10:08-0400 SaO2% (BldA) [Mass fraction] 97 % Dr. Joseph Smyth Work Phone: [facility] 02-20-2023 10:08-0400 Systolic blood pressure 164 mm[Hg] Dr. Joseph Smyth Work Phone: [facility] 11-26-2022 11:32-0400 Body height 170.[address] Joseph Smyth Work Phone: [facility] 11-26-2022 11:32-0400 Body mass index (BMI) [Ratio] 44.8 kg/m2 Dr. Joseph Smyth Work Phone: [facility] 11-26-2022 11:32-0400 Body temperature 98.2 [degF] Dr. Joseph Smyth Work Phone: [facility] 11-26-2022 11:32-0400 Body weight 129.[address] Joseph Smyth Work Phone: [facility] 11-26-2022 11:32-0400 Diastolic blood pressure 82 mm[Hg] Dr. Joseph Smyth Work Phone: [facility] 11-26-2022 11:32-0400 Heart rate 71 /min Dr. Joseph Smyth Work Phone: [facility] 11-26-2022 11:32-0400 Respiratory rate 16 /min Dr. Joseph Smyth Work Phone: [facility] 11-26-2022 11:32-0400 SaO2% (BldA) [Mass fraction] 97 % Dr. Joseph Smyth Work Phone: [facility] 11-26-2022 11:32-0400 Systolic blood pressure 112 mm[Hg] [facility] [place] 11-06-2022 10:37-0400 Body mass index (BMI) [Ratio] 44.6 kg/m2 Dr. Joseph Smyth Work Phone: [facility] 11-06-2022 10:37-0400 Body temperature 96.6 [degF] Dr. Joseph Smyth Work Phone: [facility] 11-06-2022 10:37-0400 Body weight 129.[address] Joseph Smyth Work Phone: [facility] 11-06-2022 10:37-0400 Diastolic blood pressure 84 mm[Hg] Dr. Joseph Smyth Work Phone: [facility] 11-06-2022 10:37-0400 Heart rate 69 /min Dr. Joseph Smyth Work Phone: [facility] 11-06-2022 10:37-0400 Respiratory rate 18 /min Dr. Joseph Smyth Work Phone: [facility] 11-06-2022 10:37-0400 SaO2% (BldA) [Mass fraction] 96 % Dr. Joseph Smyth Work Phone: [facility] 11-06-2022 10:37-0400 Systolic blood pressure 156 mm[Hg] Dr. Joseph Smyth Work Phone: [facility] 10-01-2022 13:32-0400 Body height 170.[address] Joseph Smyth Work Phone: [facility] 10-01-2022 13:32-0400 Body mass index (BMI) [Ratio] 44.8 kg/m2 Dr. Joseph Smyth Work Phone: [facility] 10-01-2022 13:32-0400 Body temperature 98 [degF] Dr. Joseph Smyth Work Phone: [facility] 10-01-2022 13:32-0400 Body weight 129.[address] Joseph Smyth Work Phone: [facility] 10-01-2022 13:32-0400 Diastolic blood pressure 78 mm[Hg] Dr. Joseph Smyth Work Phone: [facility] 10-01-2022 13:32-0400 Heart rate 85 /min Dr. Joseph Smyth Work Phone: [facility] 10-01-2022 13:32-0400 Respiratory rate 14 /min Dr. Joseph Smyth Work Phone: [facility] 10-01-2022 13:32-0400 SaO2% (BldA) [Mass fraction] 94 % Dr. Joseph Smyth Work Phone: [facility] 10-01-2022 13:32-0400 Systolic blood pressure 138 mm[Hg] Dr. Joseph Smyth Work Phone: [facility] 08-28-2022 15:39-0400 Body mass index (BMI) [Ratio] 44.8 kg/m2 Dr. Joseph Smyth Work Phone: [facility] 08-28-2022 15:39-0400 Body temperature 97.8 [degF] Dr. Joseph Smyth Work Phone: [facility] 08-28-2022 15:39-0400 Body weight 129.[address] Joseph Smyth Work Phone: [facility] 08-28-2022 15:39-0400 Diastolic blood pressure 100 mm[Hg] Dr. Joseph Smyth Work Phone: [facility] 08-28-2022 15:39-0400 Heart rate 85 /min Dr. Joseph Smyth Work Phone: [facility] 08-28-2022 15:39-0400 Respiratory rate 16 /min Dr. Joseph Smyth Work Phone: [facility] 08-28-2022 15:39-0400 SaO2% (BldA) [Mass fraction] 98 % Dr. Joseph Smyth Work Phone: [facility] 08-28-2022 15:39-0400 Systolic blood pressure 150 mm[Hg] Dr. Joseph Smyth Work Phone: [facility] 05-19-2022 08:52-0500 Body temperature 98.5 [degF] Dr. Joseph Smyth Work Phone: [facility] Work Phone: 05-19-2022 08:52-0500 Diastolic blood pressure 88 mm[Hg] Dr. Joseph Smyth Work Phone: [facility] Work Phone: 05-19-2022 08:52-0500 Heart rate 75 /min Dr. Joseph Smyth Work Phone: [facility] Work Phone: 05-19-2022 08:52-0500 Respiratory rate 16 /min Dr. Joseph Smyth Work Phone: [facility] Work Phone: 05-19-2022 08:52-0500 SaO2% (BldA) [Mass fraction] 97 % Dr. Joseph Smyth Work Phone: [facility] Work Phone: 05-19-2022 08:52-0500 Systolic blood pressure 120 mm[Hg] Dr. Joseph Smyth Work Phone: [facility] Work Phone: 05-19-2022 06:42-0500 Body height 170.[address] Joseph Smyth Work Phone: [facility] Work Phone: 05-19-2022 06:42-0500 Body mass index (BMI) [Ratio] 45.2 kg/m2 Dr. Joseph Smyth Work Phone: [facility] Work Phone: 05-19-2022 06:42-0500 Body weight 131.[address] Joseph Smyth Work Phone: [facility] Work Phone: 05-16-2022 08:54-0500 Body mass index (BMI) [Ratio] 44.9 kg/m2 Dr. Joseph Smyth Work Phone: [facility] Work Phone: 05-16-2022 08:54-0500 Body temperature 96.7 [degF] Dr. Joseph Smyth Work Phone: [facility] Work Phone: 05-16-2022 08:54-0500 Body weight 130.[address] Joseph Smyth Work Phone: [facility] Work Phone: 05-16-2022 08:54-0500 Diastolic blood pressure 80 mm[Hg] Dr. Joseph Smyth Work Phone: [facility] Work Phone: 05-16-2022 08:54-0500 Heart rate 93 /min Dr. Joseph Smyth Work Phone: [facility] Work Phone: 05-16-2022 08:54-0500 SaO2% (BldA) [Mass fraction] 97 % Dr. Joseph Smyth Work Phone: [facility] Work Phone: 05-16-2022 08:54-0500 Systolic blood pressure 110 mm[Hg] Dr. Joseph Smyth Work Phone: [facility] Work Phone: 04-15-2022 10:43-0400 Body mass index (BMI) [Ratio] 46.5 kg/m2 Dr. Joseph Symth Work Phone: [facility] Work Phone: 04-15-2022 10:43-0400 Body temperature 96.6 [degF] Dr. Joseph Smyth Work Phone: [facility] Work Phone: 04-15-2022 10:43-0400 Body weight 134.[address] Joseph Smyth Work Phone: [facility] Work Phone: 04-15-2022 10:43-0400 Diastolic blood pressure 66 mm[Hg] Dr. Joseph Smyth Work Phone: [facility] Work Phone: 04-15-2022 10:43-0400 Heart rate 79 /min Dr. Joseph Smyth Work Phone: [facility] Work Phone: 04-15-2022 10:43-0400 Respiratory rate 20 /min Dr. Joseph Smyth Work Phone: [facility] Work Phone: 04-15-2022 10:43-0400 SaO2% (BldA) [Mass fraction] 95 % Dr. Joseph Smyth Work Phone: [facility] Work Phone: 04-15-2022 10:43-0400 Systolic blood pressure 108 mm[Hg] Dr. Joseph Smyth Work Phone: [facility] Work Phone: 04-07-2022 08:09-0400 Body height 170.[address] Joseph Smyth Work Phone: [facility] Work Phone: 04-07-2022 08:09-0400 Body mass index (BMI) [Ratio] 45.4 kg/m2 Dr. Joseph Smyth Work Phone: [facility] Work Phone: 04-07-2022 08:09-0400 Body temperature 97.8 [degF] Dr. Joseph Smyth Work Phone: [facility] Work Phone: 04-07-2022 08:09-0400 Body weight 131.[address] Joseph Smyth Work Phone: [facility] Work Phone: 04-07-2022 08:09-0400 Diastolic blood pressure 82 mm[Hg] Dr. Joseph Smyth Work Phone: [facility] Work Phone: 04-07-2022 08:09-0400 Heart rate 69 /min Dr. Joseph Smyth Work Phone: [facility] Work Phone: 04-07-2022 08:09-0400 Respiratory rate 14 /min Dr. Joseph Smyth Work Phone: [facility] Work Phone: 04-07-2022 08:09-0400 SaO2% (BldA) [Mass fraction] 96 % Dr. Joseph Smyth Work Phone: [facility] Work Phone: 04-07-2022 08:09-0400 Systolic blood pressure 146 mm[Hg] Dr. Joseph Smyth Work Phone: [facility] Work Phone: 04-03-2022 04:19-0400 Body height 170.[address] oJseph Smyth Work Phone: [facility] Work Phone: 04-03-2022 04:19-0400 Body mass index (BMI) [Ratio] 45.3 kg/m2 Dr. Joseph Smyth Work Phone: [facility] Work Phone: 04-03-2022 04:19-0400 Body temperature 98.1 [degF] Dr. Joseph Smyth Work Phone: [facility] Work Phone: 04-03-2022 04:19-0400 Body weight 131.[address] Joseph Smyth Work Phone: [facility] Work Phone: 04-03-2022 04:19-0400 Diastolic blood pressure 80 mm[Hg] Dr. Joseph Smyth Work Phone: [facility] Work Phone: 04-03-2022 04:19-0400 Heart rate 94 /min Dr. Joseph Smyth Work Phone: [facility] Work Phone: 04-03-2022 04:19-0400 Respiratory rate 18 /min Dr. Joseph Smyth Work Phone: [facility] Work Phone: 04-03-2022 04:19-0400 SaO2% (BldA) [Mass fraction] 98 % Dr. Joseph Smyth Work Phone: [facility] Work Phone: 04-03-2022 04:19-0400 Systolic blood pressure 174 mm[Hg] Dr. Joseph Smyth Work Phone: [facility] Work Phone: 03-17-2022 08:34-0400 Body temperature 98.3 [degF] Dr. Joseph Smyth Work Phone: [facility] Work Phone: 03-17-2022 08:34-0400 Diastolic blood pressure 53 mm[Hg] Dr. Joseph Smyth Work Phone: [facility] Work Phone: 03-17-2022 08:34-0400 Heart rate 70 /min Dr. Joseph Smyth Work Phone: [facility] Work Phone: 03-17-2022 08:34-0400 Respiratory rate 16 /min Dr. Joseph Smyth Work Phone: [facility] Work Phone: 03-17-2022 08:34-0400 SaO2% (BldA) [Mass fraction] 97 % Dr. Joseph Smyth Work Phone: [facility] Work Phone: 03-17-2022 08:34-0400 Systolic blood pressure 138 mm[Hg] Dr. Joseph Smyth Work Phone: [facility] Work Phone: 03-17-2022 06:41-0400 Body height 170.[address] Joseph Smyth Work Phone: [facility] Work Phone: 03-17-2022 06:41-0400 Body mass index (BMI) [Ratio] 45.8 kg/m2 Dr. Joseph Smyth Work Phone: [facility] Work Phone: 03-17-2022 06:41-0400 Body weight 132.[address] Joseph Smyth Work Phone: [facility] Work Phone: 03-03-2022 13:11-0400 Body mass index (BMI) [Ratio] 46.7 kg/m2 Dr. Joseph Smyth Work Phone: [facility] Work Phone: 03-03-2022 13:11-0400 Body temperature 97.5 [degF] Dr. Joseph Smyth Work Phone: [facility] Work Phone: 03-03-2022 13:11-0400 Body weight 135.[address] Joseph Smyth Work Phone: [facility] Work Phone: 03-03-2022 13:11-0400 Diastolic blood pressure 74 mm[Hg] Dr. Joseph Smyth Work Phone: [facility] Work Phone: 03-03-2022 13:11-0400 Heart rate 80 /min Dr. Joseph Smyth Work Phone: [facility] Work Phone: 03-03-2022 13:11-0400 Respiratory rate 16 /min Dr. Joseph Smyth Work Phone: [facility] Work Phone: 03-03-2022 13:11-0400 SaO2% (BldA) [Mass fraction] 96 % Dr. Joseph Smyth Work Phone: [facility] Work Phone: 03-03-2022 13:11-0400 Systolic blood pressure 116 mm[Hg] Dr. Joseph Smyth Work Phone: [facility] Work Phone: 02-25-2022 14:21-0400 Body mass index (BMI) [Ratio] 46.3 kg/m2 Dr. Joseph Smyth Work Phone: [facility] Work Phone: 02-25-2022 14:21-0400 Body temperature 98.3 [degF] Dr. Joseph Smyth Work Phone: [facility] Work Phone: 02-25-2022 14:21-0400 Body weight 134.[address] Joseph Smyth Work Phone: [facility] Work Phone: 02-25-2022 14:21-0400 Diastolic blood pressure 96 mm[Hg] Dr. Joseph Smyth Work Phone: [facility] Work Phone: 02-25-2022 14:21-0400 Heart rate 86 /min Dr. Joseph Smyth Work Phone: [facility] Work Phone: 02-25-2022 14:21-0400 Respiratory rate 18 /min Dr. Joseph Smyth Work Phone: [facility] Work Phone: 02-25-2022 14:21-0400 SaO2% (BldA) [Mass fraction] 97 % Dr. Joseph Smyth Work Phone: [facility] Work Phone: 02-25-2022 14:21-0400 Systolic blood pressure 166 mm[Hg] Dr. Joseph Smyth Work Phone: [facility] Work Phone: 02-05-2022 08:29-0400 Body mass index (BMI) [Ratio] 46.7 kg/m2 Dr. Joseph Smyth Work Phone: [facility] Work Phone: 02-05-2022 08:29-0400 Body temperature 98 [degF] Dr. Joseph Smyth Work Phone: [facility] Work Phone: 02-05-2022 08:29-0400 Body weight 135.[address] Joseph Smyth Work Phone: [facility] Work Phone: 02-05-2022 08:29-0400 Diastolic blood pressure 78 mm[Hg] Dr. Joseph Smyth Work Phone: [facility] Work Phone: 02-05-2022 08:29-0400 Heart rate 85 /min Dr. Joseph Smyth Work Phone: [facility] Work Phone: 02-05-2022 08:29-0400 Respiratory rate 17 /min Dr. Joseph Smyth Work Phone: [facility] Work Phone: 02-05-2022 08:29-0400 SaO2% (BldA) [Mass fraction] 93 % Dr. Joseph Smyth Work Phone: [facility] Work Phone: 02-05-2022 08:29-0400 Systolic blood pressure 131 mm[Hg] Dr. Joseph Smyth Work Phone: [facility] Work Phone: 01-21-2022 08:31-0400 Diastolic blood pressure 86 mm[Hg] Dr. Joseph Smyth Work Phone: [facility] Work Phone: 01-21-2022 08:31-0400 Heart rate 85 /min Dr. Joseph Smyth Work Phone: [facility] Work Phone: 01-21-2022 08:31-0400 Systolic blood pressure 124 mm[Hg] Dr. Joseph Smyth Work Phone: [facility] Work Phone: 01-21-2022 08:14-0400 Body height 170.[address] Joseph Smyth Work Phone: [facility] Work Phone: 01-21-2022 08:14-0400 Body mass index (BMI) [Ratio] 46.3 kg/m2 Dr. Joseph Smyth Work Phone: [facility] Work Phone: 01-21-2022 08:14-0400 Body temperature 96.8 [degF] Dr. Joseph Smyth Work Phone: [facility] Work Phone: 01-21-2022 08:14-0400 Body weight 134.[address] Joseph Smyth Work Phone: [facility] Work Phone: 01-21-2022 08:14-0400 Respiratory rate 16 /min Dr. Joseph Smyth Work Phone: [facility] Work Phone: 01-21-2022 08:14-0400 SaO2% (BldA) [Mass fraction] 98 % Dr. Joseph Smyth Work Phone: [facility] Work Phone: 12-30-2021 09:25-0400 Body temperature 97.7 [degF] Dr. Joseph Smyth Work Phone: [facility] Work Phone: 12-30-2021 09:25-0400 Diastolic blood pressure 78 mm[Hg] Dr. Joseph Smyth Work Phone: [facility] Work Phone: 12-30-2021 09:25-0400 Heart rate 53 /min Dr. Joseph Smyth Work Phone: [facility] Work Phone: 12-30-2021 09:25-0400 Respiratory rate 16 /min Dr. Joseph Smyth Work Phone: [facility] Work Phone: 12-30-2021 09:25-0400 SaO2% (BldA) [Mass fraction] 95 % Dr. Joseph Smyth Work Phone: [facility] Work Phone: 12-30-2021 09:25-0400 Systolic blood pressure 120 mm[Hg] Dr. Joseph Smyth Work Phone: [facility] Work Phone: 12-30-2021 08:14-0400 Body height 170.[address] Joseph Smyth Work Phone: [facility] Work Phone: 12-30-2021 08:14-0400 Body mass index (BMI) [Ratio] 45.9 kg/m2 Dr. Joseph Smyth Work Phone: [facility] Work Phone: 12-30-2021 08:14-0400 Body weight [address] Joseph Smyth Work Phone: [facility] Work Phone: 12-03-2021 09:03-0400 Body mass index (BMI) [Ratio] 46.5 kg/m2 Dr. Joseph Smyth Work Phone: [facility] Work Phone: 12-03-2021 09:03-0400 Body temperature 98 [degF] Dr. Joseph Smyth Work Phone: [facility] Work Phone: 12-03-2021 09:03-0400 Body weight 134.[address] Joseph Smyth Work Phone: [facility] Work Phone: 12-03-2021 09:03-0400 Diastolic blood pressure 80 mm[Hg] Dr. Joseph Smyth Work Phone: [facility] Work Phone: 12-03-2021 09:03-0400 Heart rate 72 /min Dr. Joseph Smyth Work Phone: [facility] Work Phone: 12-03-2021 09:03-0400 Respiratory rate 16 /min Dr. Joseph Smyth Work Phone: [facility] Work Phone: 12-03-2021 09:03-0400 SaO2% (BldA) [Mass fraction] 97 % Dr. Joseph Smyth Work Phone: [facility] Work Phone: 12-03-2021 09:03-0400 Systolic blood pressure 148 mm[Hg] Dr. Joseph Smyth Work Phone: [facility] Work Phone: 10-28-2021 08:10-0400 Body temperature 98.4 [degF] Dr. Joseph Smyth Work Phone: [facility] Work Phone: 10-28-2021 08:10-0400 Diastolic blood pressure 66 mm[Hg] Dr. Joseph Smyth Work Phone: [facility] Work Phone: 10-28-2021 08:10-0400 Heart rate 67 /min Dr. Joseph Smyth Work Phone: [facility] Work Phone: 10-28-2021 08:10-0400 Respiratory rate 16 /min Dr. Joseph Smyth Work Phone: [facility] Work Phone: 10-28-2021 08:10-0400 SaO2% (BldA) [Mass fraction] 94 % Dr. Joseph Smyth Work Phone: [facility] Work Phone: 10-28-2021 08:10-0400 Systolic blood pressure 143 mm[Hg] Dr. Joseph Smyth Work Phone: [facility] Work Phone: 10-28-2021 06:24-0400 Body height 170.[address] Joseph Smyth Work Phone: [facility] Work Phone: 10-28-2021 06:24-0400 Body mass index (BMI) [Ratio] 45.7 kg/m2 Dr. Joseph Smyth Work Phone: [facility] Work Phone: 10-28-2021 06:24-0400 Body weight 132.[address] Joseph Smyth Work Phone: [facility] Work Phone: 10-22-2021 08:24-0400 Body mass index (BMI) [Ratio] 46.7 kg/m2 Dr. Joseph Smyth Work Phone: [facility] Work Phone: 10-22-2021 08:24-0400 Body weight 135.[address] Joseph Smyth Work Phone: [facility] Work Phone: 10-22-2021 08:24-0400 Diastolic blood pressure 86 mm[Hg] Dr. Joseph Smyth Work Phone: [facility] Work Phone: 10-22-2021 08:24-0400 Heart rate 80 /min Dr. Joseph Smyth Work Phone: [facility] Work Phone: 10-22-2021 08:24-0400 Respiratory rate 18 /min Dr. Joseph Smyth Work Phone: [facility] Work Phone: 10-22-2021 08:24-0400 SaO2% (BldA) [Mass fraction] 94 % Dr. Joseph Smyth Work Phone: [facility] Work Phone: 10-22-2021 08:24-0400 Systolic blood pressure 156 mm[Hg] Dr. Joseph Smyth Work Phone: [facility] Work Phone: 10-22-2021 08:24-0400 Body mass index (BMI) [Ratio] 46.7 kg/m2 Dr. Joseph Smyth Work Phone: [facility] Work Phone: 10-22-2021 08:24-0400 Body weight 135.[address] Joseph Smyth Work Phone: [facility] Work Phone: 10-22-2021 08:24-0400 Diastolic blood pressure 86 mm[Hg] Dr. Joseph Smyth Work Phone: [facility] Work Phone: 10-22-2021 08:24-0400 Heart rate 80 /min Dr. Joseph Smyth Work Phone: [facility] Work Phone: 10-22-2021 08:24-0400 Respiratory rate 18 /min Dr. Joseph Smyth Work Phone: [facility] Work Phone: 10-22-2021 08:24-0400 SaO2% (BldA) [Mass fraction] 94 % Dr. Joseph Smyth Work Phone: [facility] Work Phone: 10-22-2021 08:24-0400 Systolic blood pressure 156 mm[Hg] Dr. Joseph Smyth Work Phone: [facility] Work Phone: 10-08-2021 09:36-0400 Diastolic blood pressure 92 mm[Hg] Dr. Joseph Smyth Work Phone: [facility] Work Phone: 10-08-2021 09:36-0400 Systolic blood pressure 138 mm[Hg] Dr. Joseph Smyth Work Phone: [facility] Work Phone: 10-08-2021 09:36-0400 Body mass index (BMI) [Ratio] 47.7 kg/m2 Dr. Joseph Smyth Work Phone: [facility] Work Phone: 10-08-2021 09:36-0400 Body temperature 97.3 [degF] Dr. Joseph Smyth Work Phone: [facility] Work Phone: 10-08-2021 09:36-0400 Body weight 138.[address] Joseph Smyth Work Phone: [facility] Work Phone: 10-08-2021 09:36-0400 Heart rate 72 /min Dr. Joseph Smyth Work Phone: [facility] Work Phone: 10-08-2021 09:36-0400 SaO2% (BldA) [Mass fraction] 97 % Dr. Joseph Smyth Work Phone: [facility] Work Phone: 10-08-2021 09:36-0400 Body mass index (BMI) [Ratio] 47.7 kg/m2 Dr. Joseph Smyth Work Phone: [facility] Work Phone: 10-08-2021 09:36-0400 Body temperature 97.3 [degF] Dr. Joseph Smyth Work Phone: [facility] Work Phone: 10-08-2021 09:36-0400 Body weight 138.[address] Joseph Smyth Work Phone: [facility] Work Phone: 10-08-2021 09:36-0400 Diastolic blood pressure 92 mm[Hg] Dr. Joseph Smyth Work Phone: [facility] Work Phone: 10-08-2021 09:36-0400 Heart rate 72 /min Dr. Joseph Smyth Work Phone: [facility] Work Phone: 10-08-2021 09:36-0400 SaO2% (BldA) [Mass fraction] 97 % Dr. Joseph Smyth Work Phone: [facility] Work Phone: 10-08-2021 09:36-0400 Systolic blood pressure 138 mm[Hg] Dr. Joseph Smyth Work Phone: [facility] Work Phone: 10-08-2021 07:42-0400 Body mass index (BMI) [Ratio] 48 kg/m2 Dr. Joseph Smyth Work Phone: [facility] Work Phone: 10-08-2021 07:42-0400 Body temperature 97.2 [degF] Dr. Joseph Smyth Work Phone: [facility] Work Phone: 10-08-2021 07:42-0400 Body weight 139.[address] Joseph Smyth Work Phone: [facility] Work Phone: 10-08-2021 07:42-0400 Diastolic blood pressure 105 mm[Hg] Dr. Joseph Smyth Work Phone: [facility] Work Phone: 10-08-2021 07:42-0400 Heart rate 80 /min Dr. Joseph Smyth Work Phone: [facility] Work Phone: 10-08-2021 07:42-0400 Respiratory rate 20 /min Dr. Joseph Smyth Work Phone: [facility] Work Phone: 10-08-2021 07:42-0400 SaO2% (BldA) [Mass fraction] 96 % Dr. Joseph Smyth Work Phone: [facility] Work Phone: 10-08-2021 07:42-0400 Systolic blood pressure 159 mm[Hg] Dr. Joseph Smyth Work Phone: [facility] Work Phone: 10-08-2021 07:42-0400 Body mass index (BMI) [Ratio] 48 kg/m2 Dr. Joseph Smyth Work Phone: [facility] Work Phone: 10-08-2021 07:42-0400 Body temperature 97.2 [degF] Dr. Joseph Smyth Work Phone: [facility] Work Phone: 10-08-2021 07:42-0400 Body weight 139.[address] Joseph Smyth Work Phone: [facility] Work Phone: 10-08-2021 07:42-0400 Diastolic blood pressure 105 mm[Hg] Dr. Joseph Smyth Work Phone: [facility] Work Phone: 10-08-2021 07:42-0400 Heart rate 80 /min Dr. Joseph Smyth Work Phone: [facility] Work Phone: 10-08-2021 07:42-0400 Respiratory rate 20 /min Dr. Joseph Smyth Work Phone: [facility] Work Phone: 10-08-2021 07:42-0400 SaO2% (BldA) [Mass fraction] 96 % Dr. Joseph Smyth Work Phone: [facility] Work Phone: 10-08-2021 07:42-0400 Systolic blood pressure 159 mm[Hg] Dr. Joseph Smyth Work Phone: [facility] Work Phone: 09-21-2021 18:46-0400 Heart rate 70 /min Dr. Joseph Smyth Work Phone: [facility] Work Phone: 09-21-2021 18:46-0400 Respiratory rate 18 /min Dr. Joseph Smyth Work Phone: [facility] Work Phone: 09-21-2021 18:46-0400 SaO2% (BldA) [Mass fraction] 97 % Dr. Joseph Smyth Work Phone: [facility] Work Phone: 09-21-2021 18:30-0400 Diastolic blood pressure 70 mm[Hg] Dr. Joseph Smyth Work Phone: [facility] Work Phone: 09-21-2021 18:30-0400 Systolic blood pressure 166 mm[Hg] Dr. Joseph Smyth Work Phone: [facility] Work Phone: 09-21-2021 17:45-0400 Body height 170.[address] Joesph Smyth Work Phone: [facility] Work Phone: 09-21-2021 17:45-0400 Body mass index (BMI) [Ratio] 47 kg/m2 Dr. Joseph Smyth Work Phone: [facility] Work Phone: 09-21-2021 17:45-0400 Body temperature 97.5 [degF] Dr. Joseph Smyth Work Phone: [facility] Work Phone: 09-21-2021 17:45-0400 Body weight 136.[address] Joseph Smyth Work Phone: [facility] Work Phone: 09-11-2021 09:10-0400 Body mass index (BMI) [Ratio] 47 kg/m2 Dr. Joseph Smyth Work Phone: [facility] Work Phone: 09-11-2021 09:10-0400 Body temperature 96.6 [degF] Dr. Joseph Smyth Work Phone: [facility] Work Phone: 09-11-2021 09:10-0400 Body weight 136.[address] Joseph Smyth Work Phone: [facility] Work Phone: 09-11-2021 09:10-0400 Diastolic blood pressure 84 mm[Hg] Dr. Joseph Smyth Work Phone: [facility] Work Phone: 09-11-2021 09:10-0400 Heart rate 75 /min Dr. Joseph Smyth Work Phone: [facility] Work Phone: 09-11-2021 09:10-0400 Respiratory rate 18 /min Dr. Joseph Smyth Work Phone: [facility] Work Phone: 09-11-2021 09:10-0400 SaO2% (BldA) [Mass fraction] 99 % Dr. Joseph Smyth Work Phone: [facility] Work Phone: 09-11-2021 09:10-0400 Systolic blood pressure 138 mm[Hg] Dr. Joseph Smyth Work Phone: [facility] Work Phone: 09-11-2021 09:10-0400 Body mass index (BMI) [Ratio] 47 kg/m2 Dr. Joseph Smyth Work Phone: [facility] Work Phone: 09-11-2021 09:10-0400 Body temperature 96.6 [degF] Dr. Joseph Smyth Work Phone: [facility] Work Phone: 09-11-2021 09:10-0400 Body weight 136.[address] Joseph Smyth Work Phone: [facility] Work Phone: 09-11-2021 09:10-0400 Diastolic blood pressure 84 mm[Hg] Dr. Joseph Smyth Work Phone: [facility] Work Phone: 09-11-2021 09:10-0400 Heart rate 75 /min Dr. Joseph Smyth Work Phone: [facility] Work Phone: 09-11-2021 09:10-0400 Respiratory rate 18 /min Dr. Joseph Smyth Work Phone: [facility] Work Phone: 09-11-2021 09:10-0400 SaO2% (BldA) [Mass fraction] 99 % Dr. Joseph Smyth Work Phone: [facility] Work Phone: 09-11-2021 09:10-0400 Systolic blood pressure 138 mm[Hg] Dr. Joseph Smyth Work Phone: [facility] Work Phone: 09-04-2021 08:13-0400 Body mass index (BMI) [Ratio] 46.3 kg/m2 Dr. Joseph Smyth Work Phone: [facility] Work Phone: 09-04-2021 08:13-0400 Body temperature 97.4 [degF] Dr. Joseph Smyth Work Phone: [facility] Work Phone: 09-04-2021 08:13-0400 Body weight 134.[address] Joseph Smyth Work Phone: [facility] Work Phone: 09-04-2021 08:13-0400 Diastolic blood pressure 84 mm[Hg] Dr. Joseph Smyth Work Phone: [facility] Work Phone: 09-04-2021 08:13-0400 Heart rate 70 /min Dr. Joseph Smyth Work Phone: [facility] Work Phone: 09-04-2021 08:13-0400 Respiratory rate 14 /min Dr. Joseph Smyth Work Phone: [facility] Work Phone: 09-04-2021 08:13-0400 SaO2% (BldA) [Mass fraction] 97 % Dr. Joseph Smyth Work Phone: [facility] Work Phone: 09-04-2021 08:13-0400 Systolic blood pressure 136 mm[Hg] Dr. Joseph Smyth Work Phone: [facility] Work Phone: 09-04-2021 08:13-0400 Body mass index (BMI) [Ratio] 46.3 kg/m2 Dr. Joseph Smyth Work Phone: [facility] Work Phone: 09-04-2021 08:13-0400 Body temperature 97.4 [degF] Dr. Joseph Smyth Work Phone: [facility] Work Phone: 09-04-2021 08:13-0400 Body weight 134.[address] Joseph Smyth Work Phone: [facility] Work Phone: 09-04-2021 08:13-0400 Diastolic blood pressure 84 mm[Hg] Dr. Joseph Smyth Work Phone: [facility] Work Phone: 09-04-2021 08:13-0400 Heart rate 70 /min Dr. Joseph Smyth Work Phone: [facility] Work Phone: 09-04-2021 08:13-0400 Respiratory rate 14 /min Dr. Joseph Smyth Work Phone: [facility] Work Phone: 09-04-2021 08:13-0400 SaO2% (BldA) [Mass fraction] 97 % Dr. Joseph mSyth Work Phone: [facility] Work Phone: 09-04-2021 08:13-0400 Systolic blood pressure 136 mm[Hg] Dr. Joseph Smyth Work Phone: [facility] Work Phone: 06-12-2021 07:06-0500 Body mass index (BMI) [Ratio] 45.8 kg/m2 Dr. Joseph Smyth Work Phone: [facility] Work Phone: 06-12-2021 07:06-0500 Body temperature 95.5 [degF] Dr. Joseph Smyth Work Phone: [facility] Work Phone: 06-12-2021 07:06-0500 Body weight 132.[address] Joseph Smyth Work Phone: [facility] Work Phone: 06-12-2021 07:06-0500 Diastolic blood pressure 79 mm[Hg] Dr. Joseph Smyth Work Phone: [facility] Work Phone: 06-12-2021 07:06-0500 Heart rate 82 /min Dr. Joseph Smyth Work Phone: [facility] Work Phone: 06-12-2021 07:06-0500 Respiratory rate 16 /min Dr. Joseph Smyth Work Phone: [facility] Work Phone: 06-12-2021 07:06-0500 SaO2% (BldA) [Mass fraction] 94 % Dr. Joseph Smyth Work Phone: [facility] Work Phone: 06-12-2021 07:06-0500 Systolic blood pressure 132 mm[Hg] Dr. Joseph Smyth Work Phone: [facility] Work Phone: Encounters Encounter Date Encounter Type Care Provider Facility Start: 10-26-2024 ambulatory Brant Friend Facility :[facility] Start: 10-26-2024 Non-patient / Non-visit Brant Langley DO -[facility] Start: 10-26-2024 End: 10-26-2024 Admission to same day surgery center Brant Langley DO -Endoscopy Work Phone: Start: 10-26-2024 End: 10-26-[address] Joseph Smyth MD Work Phone: [facility] Work Phone: Start: 10-18-2024 End: 10-18-2024 Patient encounter procedure Brant Langley DO -[facility] Work Phone: Start: 10-18-2024 End: 10-18-2024 ambulatory Brant Langley Facility:[facility] Start: 09-23-2024 End: 09-23-[address] Joseph Smyth MD -[facility] Work Phone: Start: 09-23-2024 End: 09-23-2024 ambulatory Joseph Smyth Facility:[facility] Start: 09-07-2024 ambulatory Brant Korin Facility :[facility] Start: 08-29-2024 End: 08-29-[address] Joseph Smyth MD -[facility] Work Phone: Start: 08-29-2024 End: 08-29-2024 ambulatory Joseph Smyth Facility:[facility] Start: 05-30-2024 End: 05-30-2024 Phys/qhp telephone evaluation 5-10 min Autumn Poole PA-C Work Phone: [facility] Comment on above: IPMN (intraductal pa pillary mucinous neoplasm) (Primary Dx) Start: 05-30-2024 End: 05-30-2024 ambulatory AUTUMN POOLE [facility] Start: 05-24-2024 End: 05-24-2024 ambulatory Alina Cates Facility:[facility] Start: 05-10-2024 End: 05-10-2024 ambulatory [facility] Facility:[facility] Start: 05-02-2024 End: 05-02-2024 ambulatory [facility] Facility:[facility] Start: 05-02-2024 End: 05-02-2024 ambulatory [facility] Facility:[facility] Start: 04-22-2024 End: 04-22-2024 ambulatory Katelynn Dye Facility:[facility] Start: 04-15-2024 End: 04-15-2024 ambulatory [facility] Facility:[facility] Start: 04-06-2024 End: 04-06-2024 ambulatory AUTUMN POOLE [facility] Start: 04-06-2024 End: 04-06-2024 Subsequent hospital visit by physician Rad External Film EF [facility] Comment on above: IPMN (intraductal pa pillary mucinous neoplasm) Start: 03-10-2024 End: 03-10-2024 ambulatory [facility] Facility:[facility] Start: 03-03-2024 End: 03-03-2024 ambulatory [facility] Facility:[facility] Start: 02-01-2024 Encounter for genera l adult medical examination without abnormal findings [facility] Start: 02-01-2024 End: 02-01-2024 ambulatory [facility] Start: 02-01-2024 End: 02-01-2024 ambulatory [facility] Facility:[facility] Start: 01-07-2024 End: 01-07-2024 ambulatory [facility] Start: 01-07-2024 End: 01-07-2024 Patient encounter procedure [facility] Start: 08-21-2023 End: 08-21-2023 Office outpatient new 45 minutes Autumn Poole PA-C Work Phone: [facility] Comment on above: IPMN (intraductal pa pillary mucinous neoplasm) (Primary Dx) Start: 08-21-2023 End: 08-21-2023 ambulatory [facility] Start: 07-29-2023 End: 07-29-[address] Joseph Smyth Work Phone: [facility] Work Phone: Start: 07-29-2023 End: 07-29-[address] Joseph Smyth Work Phone: [facility] Internal Medicine Work Phone: Start: 07-09-2023 End: 07-09-[address] Joseph Smyth Work Phone: [facility] Gastroenter[facility] Work Phone: Start: 07-01-2023 End: 07-01-[address] Joseph Smyth Work Phone: [facility] Work Phone: Start: 07-01-2023 End: 07-01-[address] Joseph Smyth Work Phone: [facility]Labor[facility] Work Phone: Start: 06-29-2023 End: 06-29-2023 Admission to same day surgery center Dr. Joseph Smyth Work Phone: [facility] Start: 06-29-2023 End: 06-29-[address] Joseph Smyth Work Phone: [facility] Work Phone: Start: 05-19-2023 End: 05-19-[address] Joseph Smyth Work Phone: [facility] Work Phone: Start: 05-05-2023 End: 05-05-[address] [facility] Work Phone: Start: 05-04-2023 End: 05-04-2023 Admission to same day surgery center Dr. Joseph Smyth Work Phone: [facility] Start: 05-04-2023 End: 05-04-[address] Joseph Smyht Work Phone: [facility] Work Phone: Start: 04-24-2023 End: 04-24-[address] Joseph Smyth Work Phone: [facility] Internal Medicine Work Phone: Start: 04-23-2023 End: 04-23-[address] Joseph Smyth Work Phone: [facility] Gastroenterology Work Phone: Start: 04-21-2023 End: 04-21-[address] Joseph Smyth Work Phone: [facility] Work Phone: Start: 04-21-2023 End: 04-21-[address] Joseph Smyth Work Phone: [facility] Work Phone: Start: 03-19-2023 Non-patient / Non-visit Dr. Joseph Smyth Work Phone: [facility] Start: 03-19-2023 End: 03-19-2023 Admission to same day surgery center Dr. Joseph Smyth Work Phone: [facility]-Endoscopy Work Phone: Start: 03-09-2023 End: 03-09-[address] Joseph Smyth Work Phone: [facility] Work Phone: Start: 03-09-2023 End: 03-09-[address] [facility] Start: 02-27-2023 End: 02-27-[address] Joseph Smyth Work Phone: [facility] Work Phone: Start: 02-27-2023 End: 02-27-[address] Joseph Smyth Work Phone: [facility] Internal Medicine Work Phone: Start: 02-20-2023 End: 02-20-2023 Emergency department patient visit Dr. Joseph Smyth Work Phone: [facility]Emergency Department Work Phone: Start: 12-22-2022 End: 12-22-[address] Joseph Smyth Work Phone: [facility] Work Phone: Start: 12-22-2022 End: 12-22-[address] [facility] Start: 12-04-2022 End: 12-04-[address] Joseph Smyth Work Phone: [facility] Work Phone: Start: 12-04-2022 End: 12-04-[address] Joseph Smyth Work Phone: [facility]-Laboratory, Specimen Start: 11-28-2022 End: 11-28-[address] Joseph Smyth Work Phone: [facility] Work Phone: Start: 11-28-2022 End: 11-28-[address] Joseph Smyth Work Phone: [facility] Start: 11-28-2022 End: 11-28-[address] Joseph Smyth Work Phone: [facility] Gastroenterology Start: 11-26-2022 End: 11-26-[address] Joseph Smyth Work Phone: [facility] Internal Medicine Start: 11-26-2022 End: 11-26-[address] Joseph Smyth Work Phone: [facility] Work Phone: Start: 11-26-2022 End: 11-26-[address] Joseph Smyth Work Phone: [facility] Start: 11-06-2022 End: 11-06-[address] Joseph Smyth Work Phone: [facility] Start: 10-03-2022 End: 10-03-[address] Joseph Smyth Work Phone: [facility] Work Phone: Start: 10-03-2022 End: 10-03-[address] Joseph Smyth Work Phone: [facility], [facility] Start: 10-01-2022 End: 10-01-[address] Joseph Smyth Work Phone: [facility] Work Phone: Start: 10-01-2022 End: 10-01-[address] Joseph Smyth Work Phone: [facility] Internal Medicine Start: 09-25-2022 End: 09-25-[address] Joseph Smyth Work Phone: [facility]-Outpatient Breast Imaging Start: 08-29-2022 End: 08-29-[address] Joseph Smyth Work Phone: [facility] Start: 08-28-2022 End: 08-28-2022 Encounter for general adult medical examination without abnormal findings Dr. Joseph Smyth Work Phone: [facility] Start: 08-28-2022 End: 08-28-[address] Joseph Smyth Work Phone: [facility] Internal [facility] Start: 08-05-2022 End: 08-05-[address] Joseph Smyth Work Phone: [facility]-Physical Therapy Start: 08-05-[address] Sam Smyth Work Phone: [facility] Start: 05-19-2022 End: 05-19-2022 Admission to same day surgery center Dr. Joseph Smyth Work Phone: [facility] Start: 05-19-2022 End: 05-19-[address] Joseph Smyth Work Phone: [facility] Work Phone: Start: 05-16-2022 End: 05-16-[address] Joseph Smyth Work Phone: [facility] Start: 04-15-2022 End: 04-15-[address] [facility] Start: 04-07-2022 End: 04-07-[address] Joseph Smyth Work Phone: [facility] Work Phone: Start: 04-07-2022 End: 04-07-[address] Joseph Smyth Work Phone: [facility] Start: 04-03-2022 End: 04-03-2022 Emergency department patient visit Dr. Joseph Dc Phone: [facility]Emergency Department Start: 03-17-2022 End: 03-17-2022 Admission to same day surgery center [facility] Start: 03-17-2022 End: 03-17-[address] Joseph Smyth Work Phone: [facility] Work Phone: Start: 03-03-2022 End: 03-03-[address] [facility] Start: 02-25-2022 End: 02-25-[address] Joseph Dc Phone: [facility] Start: 02-05-2022 End: 02-05-[address] Joseph Dc Phone: [facility] Start: 01-21-2022 End: 01-21-[address] Joseph Smyth Work Phone: [facility] Start: 01-14-2022 End: 01-14-[address] Joseph Smyth Work Phone: [facility], [facility] Start: 12-30-2021 End: 12-30-2021 Admission to same day surgery center [facility] Start: 12-03-2021 End: 12-03-[address] Joseph Dc Phone: [facility] Start: 11-05-2021 End: 11-05-[address] Joseph Dc Phone: [facility] Start: 10-28-2021 End: 10-28-2021 Admission to same day surgery center Dr. [facility] Start: 10-22-2021 End: 10-22-[address] Joseph Dc Phone: [facility] Start: 10-08-2021 End: 10-08-[address] Joseph Dc Phone: [facility] Start: 10-08-2021 End: 10-08-[address] Joseph Dc Phone: [facility] Start: 10-08-2021 End: 10-08-[address] Joseph Dc Phone: [facility] Start: 09-24-2021 End: 09-24-[address] Joseph Smyth Work Phone: [facility]Outpatient [facility] Start: 09-21-2021 End: 09-21-2021 Emergency department patient visit Dr. Joseph Dc Phone: [facility]Emergency Department Start: 09-11-2021 End: 09-11-[address] [facility] Start: 09-04-[address] Joseph Smyth Work Phone: [facility] Start: 09-04-2021 End: 09-04-2021 Encounter for general adult medical examination without abnormal findings Dr. Joseph Smyth Work Phone: [facility] Start: 09-04-2021 End: 09-04-[address] Joseph Smyth Work Phone: [facility] Start: 06-12-2021 End: 06-12-[address] Joseph Smyth Work Phone: [facility] Start: 11-16-[address] Joseph Smyth Work Phone: [facility] Procedures Date Procedure Procedure Detail Performing Clinician Start: 10-26-[address] Joseph Smyth MD Work Phone: Start: 04-06-2024 Mri abdomen w/o & w/contrast material Autumn Poole PA-C Work Phone: Start: 01-07-2024 Lipid 1996 panel - Serum or Plasma Rad F ilm Start: 01-07-2024 Thyrotropin [Units/volume] in Serum or Plasma Rad Film Start: 06-29-2023 Radio Frequency Ablation (Right) Dr. [place] Smyth Work Phone: Start: 06-29-[address] Joseph Smyth Work Phone: Start: 06-29-2023 Injection of facet joint Dr. Joseph Smyth Work Phone: Start: 06-29-2023 Radiography of thoracic spine Dr. Radha Smyth Work Phone: Start: 05-19-[address] Joseph Smyth Work Phone: Start: 05-04-2023 Radio Frequency Ablation (Left) Dr. Maksim Smyth Work Phone: Start: 05-04-[address] Joseph Smyth Work Phone: Start: 05-04-2023 Radiography of thoracic spine Dr. Radha Smyth Work Phone: Start: 02-20-2023 CT of head without contrast Dr. Yolie Smyth Work Phone: Start: 12-04-[address] Joseph Smyth Work Phone: Start: 10-01-[address] Joseph Smyth Work Phone: Start: 09-25-[address] Joseph Smyth Work Phone: Start: 05-19-2022 Radio Frequency Ablation (Right) Dr. [place] Smyth Work Phone: Start: 03-17-2022 Radio Frequency Ablation (Left) Dr. Maksim Smyth Work Phone: Start: 03-17-[address] Joseph Smyth Work Phone: Start: 03-17-2022 Radiography of thoracic spine Dr. Radha Smyth Work Phone: Start: 03-11-2022 Lipid 1996 panel - Serum or Plasma Radha Poole PA-C Work Phone: Start: 03-11-2022 Thyrotropin [Units/volume] in Serum or Plasma Autumn Poole PA-C Work Phone: Start: 12-30-2021 Continuous thoracic epidural analgesia Dr. Joseph Smyth Work Phone: Start: 12-30-2021 Fluoroscopy guided injection of cervical spinal nerve root Dr. Joseph Smyth Work Phone: Start: 12-30-2021 Injection using fluoroscopic guidance Dr. Joseph Smyth Work Phone: Start: 10-28-2021 Fluoroscopy guided injection of cervical spinal nerve root Dr. Joseph Smyth Work Phone: Start: 10-28-2021 Injection of facet joint Dr. Joseph Smyth Work Phone: Start: 10-28-2021 Radiography of thoracic spine Dr. Radha Smyth Work Phone: Start: 10-28-2021 Continuous thoracic epidural analgesia Dr. Joseph Smyth Work Phone: Start: 09-24-[address] Joseph Smyth Work Phone: Start: 02-07-2019 Colonoscopy Autumn Poole PA-C Work Phone: Urine culture Dr. Joseph Smyth Work Phone: Urine culture Dr. Joseph Smyth Work Phone: Plan of Treatment Date Care Activity Detail Author Start: 09-22-2031 DTaP/Tdap/Td Vaccines (7 - Td or Tdap) DTaP/Tdap/Td Vaccines (7 - Td or Tdap) [facility] Start: 09-22-2031 DTaP/Tdap/Td Vaccines (8 - Td or Tdap) DTaP/Tdap/Td Vaccines (8 - Td or Tdap) [facility] Start: 02-07-2029 Screening for malignant neoplasm of colon [facility] Start: 01-06-2029 Lipid panel Lipid Panel [facility] Start: 03-11-2027 Lipid panel Lipid Panel [facility] Start: 01-06-2025 Hemoglobin A1c measurement Diabetes: Hemoglobin A1C [facility] Start: 01-06-2025 Thyroid stimulating hormone measurement TSH Level [facility] Start: 10-26-2024 Patient discharge [facility] Start: 06-03-2024 End: 06-03-2024 ambulatory 06/03/2024 10:00 AM EST Lab JORGE ALBERTO [facility] [employer] [employer] [id number] [place] [address] [facility] Start: 02-14-2024 COVID-19 Vaccine ( season) COVID-19 Vaccine ( season) [facility] Start: 02-14-2024 COVID-19 Vaccine ( season) COVID-19 Vaccine ( season) [facility] Start: 02-14-2024 Influenza vaccination Influenza Vaccine (#1) [facility] Start: 06-29-2023 Anes dx/ther nerve block/injection prone pos ANESTH N BLOCK/INJ PRONE [facility] Start: 06-29-2023 Fluoroscopic guidance O.R. Fluoro for C-Arm [facility] Start: 06-29-2023 Radiography of thoracic spine Thoracic Spine 2 Views [facility] Start: 06-29-2023 Patient discharge [facility] Start: 05-04-2023 Anesthesia thoracic spine & cord nos ANESTH SPINE CORD SURGERY [facility] Start: 05-04-2023 Dstr nrolytc agnt parverteb fct addl crvcl/thora DESTROY C/TH FACET JNT ADDL [facility] Start: 05-04-2023 Dstr nrolytc agnt parverteb fct sngl crvcl/thora DESTROY CERV/THOR FACET JNT [facility] Start: 05-04-2023 Radiography of thoracic spine Thoracic Spine 3 Views [facility] Start: 05-04-2023 XR Thoracic spine 3 Views [facility] Start: 05-04-2023 Patient discharge [facility] Start: 03-19-2023 Egd transoral biopsy single/multiple EGD BIOPSY SINGLE/MULTIPLE [facility] Start: 03-19-2023 Patient discharge [facility] Start: 03-11-2023 Thyroid stimulating hormone measurement TSH Level [facility] Start: 02-13-2023 COVID-19 Vaccine ( season) COVID-19 Vaccine ( season) [facility] Start: 01-01-2023 Zoster Vaccines (2 of 2) Zoster Vaccines (2 of 2) [facility] Start: 12-04-2022 Protein measurement [facility] Start: 11-28-2022 Gastrin [Mass/volume] in Serum or Plasma [facility] Start: 11-28-2022 IgE [Units/volume] in Serum or Plasma [facility] Start: 11-28-2022 Procedure [facility] Start: 11-28-2022 Serum immunofixation [facility] Start: 11-28-2022 [facility] Start: 11-26-2022 Patient referral [facility] Work Phone: Start: 08-28-2022 Patient referral [facility] Work Phone: Start: 05-19-2022 Fluoroscopic guidance O.R. Fluoro for C-Arm [facility] Work Phone: Start: 05-19-2022 Radiography of thoracic spine Thoracic Spine 2 Views [facility] Work Phone: Start: 05-19-2022 Patient discharge [facility] Work Phone: Start: 04-03-2022 [facility] Work Phone: Start: 03-17-2022 Anes dx/ther nerve block/injection prone pos ANESTH N BLOCK/INJ PRONE [facility] Work Phone: Start: 03-17-2022 Dstr nrolytc agnt parverteb fct addl crvcl/thora DESTROY C/TH FACET JNT ADDL [facility] Work Phone: Start: 03-17-2022 Dstr nrolytc agnt parverteb fct sngl crvcl/thora DESTROY CERV/THOR FACET T [facility] Work Phone: Start: 03-17-2022 Fluoroscopic guidance O.R. Fluoro for C-Arm [facility] Work Phone: Start: 03-17-2022 Radiography of thoracic spine Thoracic Spine 2 Views [facility] Work Phone: Start: 03-17-2022 Patient discharge [facility] Work Phone: Start: 12-30-2021 Njx dx/ther agt pvrt facet jt crv/thrc 2nd level INJ PARAVERT F JNT C/T 2 [facility] Work Phone: Start: 12-30-2021 Injection using fluoroscopic guidance [facility] Work Phone: Start: 12-30-2021 Patient discharge [facility] Work Phone: Start: 10-28-2021 Anes dx/ther nerve block/injection prone pos ANESTH N BLOCK/INJ PRONE [facility] Work Phone: Start: 10-28-2021 Njx dx/ther agt pvrt facet jt crv/thrc 2nd level INJ PARAVERT F JNT C/T 2 [facility] Work Phone: Start: 10-28-2021 Njx dx/ther agt pvrt facet jt crv/thrc 3+ level INJ PARAVERT F JNT C/T 3 [facility] Work Phone: Start: 10-28-2021 Fluoroscopy guided injection of cervical spinal nerve root OR-Steroid Inj/Cer Thor/1st L [facility] Work Phone: Start: 10-28-2021 Injection of facet joint [facility] Work Phone: Start: 10-28-2021 Radiography of thoracic spine Thoracic Spine Min 4 Views [facility] Work Phone: Start: 10-28-2021 Patient discharge [facility] Work Phone: Start: 2020 Pneumococcal Vaccine: 65+ Years (1 - PCV) Pneumococcal Vaccine: 65+ Years (1 - PCV) [facility] Start: 2015 RSV High Risk: (Elderly (60+) or Population) (1 - Risk 60-74 years 1-dose series) RSV High Risk: (Elderly (60+) or Population) (1 - Risk 60-74 years 1-dose series) [facility] Start: 1995 Screening for malignant neoplasm of breast Mammogram [facility] Start: 1973 Hepatitis C screening Hepatitis C Screening [facility] Start: 05-02-1961 IPV Vaccines (3 of 3 - 4-dose series) IPV Vaccines (3 of 3 - 4-dose series) [facility] Start: 1961 Pneumococcal Vaccine: 65+ Years (1 of 2 - PCV) Pneumococcal Vaccine: 65+ Years (1 of 2 - PCV) [facility] Start: 1955 Annual wellness visit Welcome to Medicare Visit [facility] Start: 1955 Medicare Annual Wellness Visit Medicare Annual Wellness Visit (AWV) [facility] Start: 1955 Screening for malignant neoplasm of colon [facility] Start: 1955 Screening for osteoporosis Bone Density Scan [facility] Albumin [Moles/volum e] in Serum or Plasma [facility] Albumin/Globulin ratio [facility] Antibody to lupus La protein measurement [facility] Antibody to SS-A measurement [facility] Bacteria identified in Urine by Culture Urine Culture [facility] Work Phone: Blood chemistry [facility] Work Phone: Blood chemistry [facility] Cancer Ag 19-9 [Units/volume] in Serum or Plasma [facility] CBC W Auto Different ial panel - Blood [facility] Centromere protein B Ab [Units/volume] in Serum [facility] Chromatin Ab [Units/volume] in Serum or Plasma [facility] Clam IgE Ab [Units/v olume] in Serum [facility] Codfish IgE Ab [Units/volume] in Serum [facility] Comprehensive metabo lic 2000 panel - Serum or Plasma [facility] Washta IgE Ab [Units/v olume] in Serum [facility] Cow milk IgE Ab [Units/volume] in Serum [facility] DNA double strand Ab [Units/volume] in Serum [facility] Egg white IgE Ab [Units/volume] in Serum [facility] Electrophoresis: [id number] [facility] Electrophoresis: jose ma globulin [facility] Globulin measurement [facility] Hemoglobin A1c/Hemoglobin.total in Blood [facility] IgA [Mass/volume] in Serum or Plasma [facility] IgG [Mass/volume] in Serum or Plasma [facility] IgM [Mass/volume] in Serum or Plasma [facility] Sandy-1 extractable nuc lear Ab [Units/volume] in Serum [facility] Lactoferrin [Presenc e] in Stool by Immunoassay [facility] Lipid 1996 panel - S scooter or Plasma [facility] MR Biliary ducts and Pancreatic duct WO contrast [facility] MR Biliary ducts and Pancreatic duct WO contrast [facility] Neutrophil cytoplasm ic Ab.classic [Units/volume] in Serum [facility] P-ANCA measurement [facility] Patient Education [facility] Work Phone: Patient referral [facility] Work Phone: Peanut IgE Ab [Units/volume] in Serum [facility] Protein electrophore sis panel - Serum or Plasma [facility] Protein measurement [facility] Protein measurement [facility] Scallop RAST [facility] SCL-70 extractable n uclear Ab [Units/volume] in Serum by Immunoassay [facility] Serum protein electrophoresis [facility] Sesame seed RAST [facility] Shrimp IgE Ab [Units/volume] in Serum [facility] Horne extractable nu clear Ab [Presence] in Serum [facility] Soybean IgE Ab [Units/volume] in Serum [facility] Thyroid stimulating hormone measurement [facility] Thyroid stimulating hormone measurement [facility] Marshall RAST [facility] Wheat IgE Ab [Units/volume] in Serum [facility] Immunizations Immunization Date Immunization Notes Care Provider Kathleen valerio 05-02-2024 Seasonal trivalent influenza vaccine, adjuvanted, preservative free Dr. Joseph Smyth MD Work Phone: [facility] 04-24-2023 influenza, injectabl e, quadrivalent, preservative free Dr. Joseph Smyth Work Phone: [facility] 04-24-2023 influenza virus vaccine, unspecified formulation Rad [facility] Work Phone: 11-06-[address] Joseph Smyth Work Phone: [facility] 04-15-2022 influenza, injectabl e, quadrivalent, preservative free Dr. Joseph Smyth Work Phone: [facility] 04-15-2022 influenza, seasonal, injectable Dr. Joseph Smyth Work Phone: [facility] 09-21-2021 tetanus toxoid, reduced diphtheria toxoid, and acellular pertussis vaccine, adsorbed Dr. Joseph Smyth Work Phone: [facility] 03-24-2021 Covid (Pfizer) Dr. Joseph Smyth Work Phone: [facility] 02-23-2021 influenza, injectabl e, quadrivalent, preservative free Dr. Joseph Smyth Work Phone: [facility] 02-23-2021 influenza, seasonal, injectable Dr. Joseph Smyth Work Phone: [facility] 07-17-2020 Covid (Pfizer) Dr. Joseph Smyth Work Phone: [facility] 06-26-2020 Covid (Pfizer) Dr. Joseph Smyth Work Phone: [facility] 03-30-[address] Joseph Smyth Work Phone: [facility] 10-30-1960 poliovirus vaccine, unspecified formulation [facility] Work Phone: Payers Date Payer Category Payer Self-pay [id number] 2023 Medicare [employer] RE [employer]ARE [id number] 2023-Present [address] [place] [id number] 2023 Medicare (Managed Care) [employer] MEDICARE [id number] 2023 Medicare [id number] 2016 Unknown [id number] 1955 Unknown [id number] ..1.840052.3.579.2. 1245 1955 Unknown [id number] ..1.975959.3.579.2. 1245 1955 Unknown [id number] ..1.517147.3.579.2. 1245 1955 Unknown [id number] ..1.598880.3.579.2. 1245 Unknown [id number] Unknown [id number] Unknown [id number] 2.0.1.315944.3.579.2. 462 Unknown [id number] 2..1.845229.3.579.2. 462 Unknown [id number] 2.0.1.667071.3.579.2. 462 Unknown [id number] 2.0.1.005289.3.579.2. 462 Unknown [id number] 2.16.840.1.713287.3.579.2. 462 Unknown [id number] 2.16.840.1.379195.3.579.2. 462 Unknown [id number] 2.16.840.1.613816.3.579.2. 462 Unknown [id number] 2.16.840.1.616590.3.579.2. 462 Unknown [id number] 2.16.840.1.234092.3.579.2. 462 Unknown [id number] 2.16.840.1.673259.3.579.2. 462 Unknown [id number] 2.16.840.1.920982.3.579.2. 462 Unknown [id number] 2.16.840.1.343772.3.579.2. 462 Unknown [id number] 2.16840.1.986491.3.579.2. 462 Unknown [id number] 2.16.840.1.357016.3.579.2. 462 Unknown [id number] 2.16.840.1.521054.3.579.2. 462 Unknown [id number] 2.16840.1.941050.3.579.2. 462 Social History Date Type Detail Facility Start: 09-21-2021 End: 07-29-2023 Tobacco smoking status NJIS Unknown if ever smoked [facility] Start: 02-11-2014 None [facility] Start: 02-11-2014 With Family [facility] Start: 05-30-2020 Non-smoker [facility] Start: 1955 Sex Assigned At Female W [facility] Start: 08-21-2023 End: 10-24-2024 Tobacco smoking status NHIS Ex-smoker [facility] History of tobacco use Current smoker [facility] Work Phone: History of tobacco use Cigarette Smoker [facility] Work Phone: Start: 08-21-2023 Cigarettes smoked current (pack per day) - Reported 1 [facility] Work Phone: Start: 08-21-2023 Tobacco use and exposure Smokeless tobacco non-user [facility] Work Phone: Start: 08-21-2023 Alcohol intake Current drinke r of alcohol (finding) [facility] Work Phone: Start: 08-21-2023 Alcohol Comment occasionally [facility] Work Phone: Start: 1955 [facility] Start: 08-21-2023 Gender identity Not on file [facility] Work Phone: Start: 08-11-2023 End: 08-21-2023 Exposure to SARS-CoV-2 (event) Not sure [facility] Work Phone: Start: 05-20-2024 End: 05-30-2024 Exposure to SARS-CoV-2 (event) Unable to assess [facility] NEGATED: Highlighted row [facility] NEGATED: Highlighted rowStart: NINF History of tobacco use Passive smoker [facility] Work Phone: NEGATED: Highlighted row Not [facility] Goals Date Patient Goal Desired Activity /State Mental Status Date Assessment Result Facility 10-26-2024 Cognitive function Level Of Cons ciousness Follows Commands;Drowsy [facility] Work Phone: 10-26-2024 Cognitive function Voice/Name [facility] Work Phone: 06-29-2023 Cognitive function Level Of Cons ciousness Awake;Alert;Appropriate;Follow s Commands [facility] Work Phone: 05-04-2023 Cognitive function Voice/Name [facility] Work Phone: 03-19-2023 Cognitive function Voice/Name [facility] Work Phone: 02-20-2023 Cognitive function Level Of Cons ciousness Awake;Alert;Appropriate [facility] Work Phone: 05-19-2022 Cognitive function Voice/Name [facility] Work Phone: 03-17-2022 Cognitive function Level Of Cons ciousness Awake;Appropriate [facility] Work Phone: 03-17-2022 Cognitive function Patient Orien tation Person;Place;Time [facility] Work Phone: 12-30-2021 Cognitive function Awake;Appropriate [facility] Work Phone: 10-28-2021 Cognitive function Level Of Cons ciousness Awake;Appropriate [facility] Work Phone: 10-28-2021 Cognitive function Patient Orien tation Person;Place;Time [facility] Work Phone: Clinical Notes 03-07-2022 to 10-26-2024 Note Date & Type Note Facility 10-26-2024 Consult note [facility] 10-26-2024 Procedure note [facility] 10-26-2024 Procedure note [facility] 10-26-2024 Consult note [facility] 10-26-2024 History and physi adry note [facility] 10-26-2024 Note [facility] Medical Records Department [address] [place] [id number] History Physical Exam 10/26/24 1427 MR#: [id number] Acct: [id number] Name: CULLEN CUEVA Rep #: [id number] : 1955 69 From: [facility] Friend DO PCP: Dr. Joseph Smyth MD Status:[facility] Location: [place] [address] HPI - General General Date of Admission: 10/26/24 Date of Service: 10/26/24 Chief Complaint: urbano's esophagus HPI Narrative CULLEN CUEVA, is a 69 F who presentsPABHARATH CUEVA, is a 69 F who presents to the office today for follow up. PCP OV 3.16. for yearly follow up. ? Colonoscopy Dr. Gonzales 02.07.19, screening diverticulosis; internal hemorrhoids. No specimens collected ? EGD Dr. Gonzales 06.01.20 non-severe reflux esophagitis without metaplasia; small hiatal hernia; multiple gastric fundic gland polyps; gastritis. H.Pylori negative. *BGI established 11.28.22 Known history of Urbano???s diagnosed many years prior; currently taking omeprazole 40mg daily. Nausea and bloating with emesis, RUQ discomfort. Cholecystectomy age 40 during which three stones were visualized but only two retrieved. Bowels fluctuate between constipation (no BM 2-3 days or smaller harder stools several times a day) and loose stools which last no longer than a day, typically triggered by new foods, 1-2 times a week. ? Biochemical ESR, LDH, RAST, SREEKANTH comp, ANCA, gastrin, GAME, PLOO, chromogranin A, IBD without pertinent abnormality ? CRP H5.44, gastrin H135. RAST High: shrimp ? Stool calprotectin, lactoferrin WNL Contact 12.23.22 with results noting difficulty with constipation. Start amitiza 8mcg QD and increase to BID in seven days if no improvement. Contact 03.06.23 with itching and nausea. ? Biochemical CBC, CMP, LFT (K+L3.2), amylase, lipase without additional pertinent abnormality. ? EGD 03.19.23 short-segment Urbano???s, metaplasia neg; multiple hyperplastic gastric polyps; small hiatal hernia. Contact 04.02.23 reporting improvement of symptoms following elimination of a medication. OV 04.23.23 diazide stopped which caused resolution of symptoms. Continues with Amitiza 8mcg QD PRN as routine use causes loose stools. ? MRCP 05.19.23 hyperintense cystic lesion of pancreatic head without ductal dilation, most likely primary cystic neoplasm ie. IPMN. Recommend repeat MRCP in one year for stability. Contact 06.30.23 with MRCP results; recommend tumor markers for baseline ? Biochemical CA19-9, CEA WNL OV 07.09. reports she is having some intermittent nausea and afternoon/evening bloating. OV 5..25 pt reports increased difficulty swallowing, stating that things are getting caught and cutting off her trachea. Notes nausea about 3 times a week, cannot pinpoint trigger or alleviating factors. [facility] Medical History Shortness of breath on exertion Anxiety and depression History of fall Chronic back pain Borderline type 2 diabetes mellitus Flu vaccine need Hx: UTI (urinary tract infection) Malaise and fatigue Allergies Dysuria Blood glucose elevated Dry skin dermatitis Musculoskeletal back pain Venous insufficiency of both lower extremities Post-menopausal Marijuana use Injury of back Restless legs History of diverticulitis Gastric reflux Former smoker BiPAP (biphasic positive airway pressure) dependence Leg cramps History of edema History of stress test History of echocardiogram Cardiology follow-up encounter Health care maintenance Insomnia Asthma exacerbation Scoliosis Essential hypertension Family history of coronary artery disease Epigastric abdominal tenderness Sinusitis Chest congestion Routine health maintenance History of gallstones Back problem Arthritis Diverticulitis Barretts esophagus Depression (emotion) Morbid obesity with BMI of 40.0-44.9, adult Anxiety Hypothyroidism Respiratory insufficiency Hyperlipemia Home Medications ???Medication ???Instructions ???Recorded ???Last Taken ???Type calcium carbonate 1,000 mg PO DAILY 06/22/20 1 History cholecalciferol (vitamin D3) 25 2,000 unit PO DAILY 06/22/2012/05 History mcg (1,000 unit) chewable tablet mecobalamin (vitamin B12) 5,000 5,000 mcg PO DAILY SUPPLEMENT 11/1412/05/20 History mcg disintegrating tablet triamcinolone acetonide 0.1 % 1 applic topical BID PRN rash 08/13 01/04 Unknown Rx topical cream #453.6 grams (more content not included)... [facility] 08-29-2024 Evaluation note Diagnosis Onset Date Resolution History of fall acute August 8:49am Anxiety chronic August 29 8:49am Borderline type 2 diabetes mellitus chronic August 29, 2024 8:49am Essential hypertension chronic [facility] 2024 8:49am Globus sensation chronic August 292024 8:49am Hot flashes chronic August 29, 025 8:49am Hypothyroidism chronic August 8:49am Insomnia chronic August 29 8:49am Anxiety and depression acute Ap 2024 8:25am Insomnia chronic September 23 8:25am Choledocholithiasis acute October 182024 8:54am Barretts esophagus chronic October 8:54am Constipation chronic October 18 8:54am Pancreatic lesion chronic October 8:54am Dysphagia acute October 26, 2024 1:04pm Barretts esophagus chronic October 262024 1:04pm Globus sensation chronic October 1:04pm [facility] Work Phone: 1(990) 430-641112-16-2024 History of Present illness Narrative* Autumn Poole PA-C - 05/30/2024 2:00 PM EST A telephone visit (audio connection only) between the patient (at the originating site) and the provider (at the distant site) was utilized to provide this telehealth service. Verbal consent was requested and obtained from the patient immediately prior to the telehealth visit. Subjective Ms. Cueva is a 69-year-old female who presents to discuss surveillance MRI/MRCP results for multifocal branch duct IPMNs. She had a cholecystectomy in 1998 and was told by the surgeon that she had several stones in her bile duct. She recalls experiencing persistent RUQ pain following the cholecystectomy though this eventually resolved. Recently, she has experienced a similar pain. For this reason, she had a non- contrast MRCP to rule out choledocholithiasis on 05/19/23 that demonstrated an incidental finding of a 10 mm cyst in the head of the pancreas without main duct dilatation. On my person read, there was a cyst in the pancreatic uncinate measuring 15 mm x 9.6 mm and a subcentimeter tail cyst. She had a CEA and CA19-9 checked, both normal. I recommended annual surveillance. She has since had a MRI/MRCP at [facility]. Though I am the ordering provider, the radiology report was never sent to me. Medical history: Urbano's esophagus, HTN, HLD, hypothyroid, JADEN on BiPAP. Surgical history: Lap cholecystectomy (1998), hysterectomy, ablations for scoliosis. Family history: No pancreatitis or pancreatic cancer. Surgical history: Former smoker. Rare alcohol use. Lives in [place]. Objective There were no vitals taken for this visit. Physical Exam A physical exam was not conducted as this was a phone or virtual visit. The patient is in no acute distress. Assessment/Plan Ms. Cueva is a 69-year-old female who presents to discuss surveillance MRI/MRCP results for multifocal branch duct IPMNs. PLAN: She has multifocal branch duct IPMNs with the dominant cyst in the uncinate measuring 1.5 cm.There are no high risk stigmata or worrisome features on my read (I did review the images). I will contact [facility] to send the radiology report. She would like a copy for her records. Plan to continue annual surveillance. Autumn Poole PA-C documented in this [facility] Work Phone: 1(991) 598-605603-08-2024 History of Present illness Narrative* Autumn Poole PA-C - 08/21/2023 10:00 AM EST Subjective Ms. Cueva is a 68-year-old female who is self-referred for a pancreatic head cyst. She had a cholecystectomy in 1998 and was told by the surgeon that she had several stones in her bile duct. She recalls experiencing persistent RUQ pain following the cholecystectomy though this eventually resolved. Recently, she has experienced a similar pain. For this reason, she had a non- contrast MRCP to rule out choledocholithiasis on 05/19/23 that demonstrated an incidental finding of a 1.0 cm cyst in the head of the pancreas without main duct dilatation. She had a CEA and CA19-9 checked, both normal. She felt as though she was not given much information about her pancreatic cyst and thus joined a pancreatic support group which led her to my clinic. She denies a personal history of acute pancreatitis. Medical history: Urbano's esophagus, HTN, HLD, hypothyroid, JADEN on BiPAP. Surgical history: Lap cholecystectomy (1998), hysterectomy, ablations for scoliosis. Family history: No pancreatitis or pancreatic cancer. Surgical history: Former smoker. Rare alcohol use. Lives in [place]. Objective BP 131/64 Pulse 73 Temp 35.6 C (96.1 F) Resp 18 Ht 1.707 m (5' 7.21) Wt 130 kg (286 lb 13.1 oz) SpO2 92% BMI 44.65 kg/m Physical Exam General: in no acute distress, comfortable Eyes: no pallor or scleral icterus Ears, nose, throat: no oropharyngeal edema Cardiovascular: normal rate, regular rhythm Respiratory: clear breath sounds, symmetric, no wheezes Gastrointestinal: abdomen soft, non-tender, no masses Musculoskeletal: normal gate, no deformities Integumentary: no concerning lesions, no jaundice Lymphatic: no abnormally palpable lymph nodes Neurologic: no gross deficits Psychiatric: cognition intact, mood appropriate Assessment/Plan Ms. Cueva is a 68-year-old female who is self-referred for a pancreatic head cyst. PLAN: I requested her MRCP images from [place] and personally reviewed. Of note, this was a non-contrast scan. She has a cyst in the pancreatic uncinate. It measures somewhat larger on my read (as compared to the reading radiologist) at 15 mm x 9.6 mm. There is a subcentimeter cyst as well in the tail. These are likely branch duct IPMNs. I discussed that branch duct IPMNs represent potentially pre-malignant lesions and are managed based on the presence or absence of high risk stigmata or concerning features including cyst size, cyst growth over time, enhancing mural nodule or main duct dilatation. Management decisions are based on these features, as well as, personal medical history, family history, presence or absence of symptoms and patient preference. There are no high risk stigmata or worrisome features. I recommend annual surveillance with MRCP with and without contrast in May of 2024. I will remind her when she is due and mail the order (to be completed at [facility] as per her preference). Her CA19-9 is 4, suggesting she is a non-secretor. These cysts are not the cause of her GI symptoms. I recommend no diet restrictions but encouraged healthy eating. Autumn Poole PA-C documented in this [facility] Work Phone: 1(614) 195-629001-15-2024 Procedure [facility] 05-04-2023 Procedure [facility]09-08-2023 Discharge summary Author Rafael Bradford [facility] February 20, 2023 1:18pm Note Date/Time February 20, 2023 10:37am [facility] Medical Records Department [address] [place] [address] Emergency Department Summary 02/20/23 MR#: [id number] Acct: [id number] Name: CULLEN CUEVA Rep #:[id number] : 1955 67 From: Rafael Bradford MD PCP: Dr. Joseph Smyth MD Status:R EG ER Location: ED HPI History of Present Illness Chief Complaint: General Illness Informant: patient Onset/Context/Timing Onset: Month(s) Context: Gradual Onset Timing: Intermittent Current Severity: Mild Maximum Severity: Mild Narrative Narrative: 67-year-old female history of hypothyroidism on thyroid medication. Since ve had trouble with her TSH increasing in spite increasing dosages of thyroid medication. She said now she is having headaches and trouble sleeping. Intermittent subjective fever and chills. Has had some mild weight loss. And has had a headache for about a month. No falls or head trauma no history of intracranial bleeds. No history of blood thinners. Nausea but no vomiting or diarrhea. No melena. Prior similar symptoms: Yes Recent Illness/Hospitalization: No PFSH PFS Medical History Allergies Anxiety Arthritis Asthma exacerbation Back problem Barretts esophagus BiPAP (biphasic positive airway pressure) dependence Blood glucose elevated Cardiology follow-up encounter Chest congestion Chest pain Depression (emotion) Diverticulitis Dry skin dermatitis Dysuria Epigastric abdominal tenderness Essential hypertension Family history of coronary artery disease Former smoker Gastric reflux Health care maintenance History of diverticulitis History of echocardiogram History of edema History of gallstones History of stress test Hyperlipemia Hypothyroidism Injury of back Insomnia Leg cramps Marijuana use Morbid obesity with BMI of 40.0-44.9, adult Musculoskeletal back pain Post-menopausal Respiratory insufficiency Restless legs Routine health maintenance Scoliosis Shortness of breath Sinusitis Sleep apnea Venous insufficiency of both lower extremities Wears glasses Home Medications calcium carbonate 500 mg calcium (1,250 mg) chewable tablet 1,000 mg PO DAILY 06/22/20 [History Last Taken 12/05/20] cholecalciferol (vitamin D3) 25 mcg (1,000 unit) chewable tablet 2,000 unit PO DAILY 06/22/20 [History Last Taken 12/05/20] ferrous gluconate 324 mg (37.5 mg iron) tablet 324 mg PO DAILY SUPPLEMENT 12/05/20 [History Last Taken 12/05/20] mecobalamin (vitamin B12) 5,000 mcg disintegrating tablet 5,000 mcg PO DAILY SUPPLEMENT 12/05/20 [History Last Taken 12/05/20] blood pressure test kit-large #1 ea 10/08/21 [Rx Last Taken Unknown] montelukast 10 mg tablet (Singulair) 10 mg PO QHS ALLERGIES 01/21/22 [History Last Taken Unknown] fluticasone propionate 50 mcg/actuation nasal spray,suspension 2 spray intranasal DAILY #3 ea 06/24/22 [Rx Last Taken Unknown] rosuvastatin 40 mg tablet (Crestor) 40 mg PO DAILY #90 tabs 06/24/22 [Rx Last Taken Unknown] trazodone 50 mg tablet 150 mg (3 x 50 mg) PO QHS PRN Sleep 3 months #240 tabs 06/24/22 [Rx Last Taken Unknown] triamterene 37.5 mg-hydrochlorothiazide 25 mg tablet 1 tab PO QAM #90 tabs 06/24/22 [Rx Last Taken Unknown] budesonide-formoterol HFA 160 mcg-4.5 mcg/actuation aerosol inhaler (Symbicort) 2 puff inhalation BID #3 ea 06/26/22 [Rx Last Taken Unknown] omeprazole 40 mg capsule,delayed release 40 mg PO DAILY #90 caps 08/29/22 [Rx Last Taken Unknown] triamcinolone acetonide 0.1 % topical cream 1 applic topical BID PRN rash #453.6grams 08/29/22 [Rx Last Taken Unknown] pramipexole 0.25 mg tablet 0.25 - 0.75 mg (1 - 3 x 0.25 mg) PO QHS RLS #90 tabs 09/15/22 [Rx Last Taken Unknown] potassium chloride 20 mEq tablet,extended release 20 meq PO DAILY #90 tabs 10/14/22 [Rx Last Taken Unknown] albuterol sulfate 90 mcg/actuation aerosol inhaler 2 - 3 puff inhalation Q6H PRNshortness of breath or wheezing #8.5 grams 10/22/22 [Rx Last Taken Unknown] ipratropium bromide 21 mcg (0.03 %) nasal spray 2 spray intranasal BID-TID PRN allergy symptoms #30 mL 11/06/22 [Rx Last Taken Unknown] tiotropium bromide 1.25 mcg/actuation mist for inhalation (Spiriva Respimat) 2 puff inhalation DAILY #4 grams 11/06/22 [Rx Last Taken Unknown] levothyroxine 175 mcg tablet 175 mcg PO DAILY #90 tabs 11/26/22 [Rx Last Taken Unknown] cetirizine 10 mg capsule 10 mg PO DAILY #30 caps 12/12/22 [Rx Last Taken Unknown] lubiprostone 8 mcg capsule (Amitiza) 8 mcg PO DAILY #30 caps 12/29/22 [Rx Last Taken Unknown] fluoxetine 40 mg capsule 40 mg PO DAILY #90 caps 01/30/23 [Rx Last Taken Unknown] Allergy/AdvReac Type Severity Reaction Status Date / Time pravastatin [From Pravachol] Allergy Mild itching Verified 11/26/22 11:27 ketoprofen [From Orudis] Allergy Nausea/Vom/ Verified 11/26/22 11:27 Diarrhea Family History Sister CAD (coronary artery disease) Thyroid disorder Brother CAD (coronary artery disease) Heart disease Myocardial infarction Alcoholism Angina at rest Mother Diabetes Myocardial infarction Father Hypertension Heart disease Myocardial infarction Angina at rest Thyroid disorder Grandfather Alcoholism Surgical History History of cholecystectomy (~1998) History of colonoscopy History of esophagogastroduodenoscopy (EGD) (~2015) History of hysterectomy (~1998) Social History household members: none Smoking Status: Former smoker quit date: 06/15/84 Tobacco: How many years used: 15 Electronic Cigarette Use: not used how long ago did patient quit smokin years second hand exposure: No alcohol intake: current alcohol intake frequency: holidays/special occasions only Alcohol type: wine substance use type: does not use what type of physical activity do you participate in: none ROS ROS ED ROS Narrative Pains. Weight loss. Headaches. Subjective fever and chills. Review of Systems ROS Unobtainable: Denies due to encephalopathy Constitutional Constitutional ED: Reports chills, fever(s), subjective, sweats and weight loss Eyes Eyes: Denies blurry vision ENT ENT ED: Denies ear pain Cardiovascular Cardiovascular: Denies chest pain Respiratory/Chest Respiratory/Chest: Denies cough Gastrointestinal Gastrointestinal: Denies abdominal pain Genitourinary Genitourinary ED: Denies dysuria or hematuria Musculoskeletal Musculoskeletal: Denies arthralgias or back pain Integumentary Denies abscess Neurologic Neurologic: Reports headache(s) Psychiatric Psychiatric: Denies anxiety Endocrine Endocrinology: Denies cold intolerance Hematologic/Lymphatic Hematologic/Lymphatic: Reports systems reviewed and no addt'l complaints, exceptas documented and none; Denies easy bruising or lymphadenopathy Allergic/Immunologic Allergic/Immunologic ED: Denies mouth swelling or tongue swelling EXAM Physical Exam Narrative Exam Narrative: Well-appearing 67-year-old female. Vital signs stable afebrile. H EENT exam unremarkable. No facial droop. Nontender. No trauma. Pupils round reactive light. Normal speech. Neck nontender. Lungs clear. Heart regular rhythm no murmur. Rate about 80. Abdomen soft nontender. Moving all 4 extremities. Nontender no edema. Normal strength and sensation. Back unremarkable. Neurologic exam normal. She is awake and alert no focal motor deficits. Const Vital Signs: 02/20/23 10:08 02/20/23 10:23 Temperature 97.1 F L Temperature Source Temporal Pulse Rate 84 Respiratory Rate 14 Respiratory Effort Normal Blood Pressure 164/108 H Blood Pressure Mean 126 Pulse Ox 97 Oxygen Delivery Method Room Air Positive well nourished and well developed; Negative for cachectic, contracturesor unkempt General Appearance ED: well developed and NAD; Negative for unkempt, cachectic, contractures, cyanotic, diaphoretic or pallor Nutritional Appearance: Negative for cachectic HEENT Reports moist mucous membranes Negative for trauma or tenderness Eyes PERRL and EOMs intact bilaterally General Eye ED: Negative for pale conjunctiva, scleral icterus or other Neck no lymphadenopathy, supple and no JVD General: Negative for tenderness Chest Wall inspection of chest normal and palpation of chest normal Chest: Negative for other Resp normal respiratory effort and clear to auscultation bilaterally Effort and Inspection: Negative for retractions Auscultation: Negative for rales, rhonchi or wheezes Cardio regular rate, regular rhythm, S1 normal heart sound, S2 normal heart sound and no murmurs Rate: Negative for bradycardia or tachycardic GI normal to inspection, nondistended, normoactive bowel sounds, non-tender, non-distended and no masses Inspection: Negative for abdominal distention Auscultation: normoactive bowel sounds Palpation: soft; Negative for tender or guarding Bladder / Kidney Exam: No other Back/Spine no CVA tenderness General Back: Negative for CVA tenderness Cervical Spine: Negative for cervical spine tenderness Thoracic Spine / Upper Back: Negative for thoracic spinal tenderness Lumbar Spine / Lower Back: Negative for lumbar spinal tenderness Extremity normal to inspection General Extremety ED: Negative for edema or tenderness General Extremity: Negative for edema Neuro oriented x3 and CN's II-XII intact bilaterally Sensorium / Orientation: alert; Negative for orientation impaired, lethargic or stuporous Motor Exam: strength 5/5 throughout Psych mental status grossly normal Appearance: Negative for unkempt or other Attitude: No agitated Mood & Affect: Negative for depressed, anxious or tearful Skin no rashes or lesions noted, no wounds and skin turgor normal General Skin Exam: elasticity normal; Negative for jaundice or pallor Lesions: No lesion noted Rashes: No rashes noted Trauma: Negative for abrasion Wounds: Negative for wounds noted MDM MDM MDM Narrative Medical decision making narrative: 67-year-old female with malaise and headache. Exam benign. Screening labs being obtained along with a TSH because she has had trouble with treating her hypothyroidism for the last [address] of her brain due to a constant headache for months. Repeat a.m. patient doing well at 1:10 PM. No change. She has an unremarkable repeat exam. No significant change. She and I went over all of her test results. She is comfortable being discharged home with outpatient follow-up. History & Record Review Discussion w/independent historian: Patient Additional record(s) reviewed:: Prior inpatient record, Prior outpatient record,Prior ED visit and Prior labs Lab Data Attestation: I reviewed the patient's lab results. Lab results narrative: CBC normal. White count of 10. H&H 14 and 41. Platelets 316. BMP shows a sodium 135 gap of 3. Normal BUN and creatinine. Glucose 110. Liver enzymes are unremarkable other than alk phos of 125. TSH level is actually low at 0.18 CAT scan of the brain showed no acute abnormality as read by the radiologist. Labs: Laboratory Results - last 24 hr 02/20/23 11:00 WBC 10.2 RBC 4.73 Hgb 14.3 Hct 41.9 MCV 88.6 MCH 30.2 MCHC 34.1 RDW Std Deviation 41.4 RDW Coeff of Giancarlo 12.7 Plt Count 316 MPV 9.3 Immature Gran % (Auto) 0.300 Neut % (Auto) 59.5 Lymph % (Auto) 27.3 [place] % (Auto) 9.7 Eos % (Auto) 2.6 Baso % (Auto) 0.6 Absolute Neuts (auto) 6.1 Absolute Lymphs (auto) 2.77 Nucleated RBC % 0 Sodium 135 L Potassium 3.8 Chloride 103 Carbon Dioxide 29.0 Anion Gap 3 L BUN 16 Creatinine 0.90 Estim Creat Clear Calc 58.99 Est GFR (MDRD) Af Amer 80 Est GFR (MDRD) Non-Af 66 BUN/Creatinine Ratio 17.7 Glucose 110 H Calcium 9.3 Total Bilirubin 0.40 AST 21 ALT 30 Alkaline Phosphatase 125 H Total Protein 7.9 Albumin 3.4 Globulin 4.5 H Albumin/Globulin Ratio 0.8 L TSH 0.18 L Radiography Diagnostic Testing: Clinical Impression(s) from Imaging Studies Brain CT 02/20/23 10:54 IMPRESSION: Normal unenhanced CT scan of the brain. Electronically Signed: Ad Conner MD at 11:28 EDT , Rhythm Strip Rhythm Strip: Sinus Rhythm Rate: 72 Ectopy: None EKG Initial EKG: Attestation: I personally reviewed and interpreted this EKG as follows: Interpretation: Sinus Rhythm and No Acute Injury Pattern Comments: Normal sinus rhythm rate of 72 no acute signs of RI nor ischemiano dysrhythmia. Normal EKG. Discharge Plan Triage Chief Complaint: General Illness ED Provider: Rafael Bradford Dx/Rx/DC Orders Clinical Impression: Malaise, History of hypothyroidism Prescriptions: No Action (DME) blood pressure test kit-large Kit See Rx Instructions .ROUTE .MEDSUPPLY Qty: 1 0RF Rx Instructions: Check BP twice a day montelukast [Singulair] 10 mg tablet 10 mg PO QHS Spiriva Respimat 1.25 mcg/actuation mist 2 puff inhalation DAILY Qty: 4 6RF ipratropium bromide 21 mcg (0.03 %) spray,non-aerosol 2 spray intranasal BID-TID PRN (Reason: allergy symptoms) Qty: 30 4RF Rx Instructions: administer into each nostril triamcinolone acetonide 0.1 % cream 1 applic topical BID PRN (Reason: rash) Qty: 453.6 2RF levothyroxine 175 mcg tablet 175 mcg PO DAILY Qty: 90 2RF Rx Instructions: Take 1 tablet daily x 6 days then 1.5 tablet x 1 day calcium carbonate 500 mg calcium (1,250 mg) tablet,chewable 1,000 mg PO DAILY cholecalciferol (vitamin D3) 25 mcg (1,000 unit) tablet,chewable 2,000 unit PO DAILY ferrous gluconate 324 mg (37.5 mg iron) Tablet 324 mg PO DAILY mecobalamin (vitamin B12) 5,000 mcg Tablet,Disintegrating 5,000 mcg PO DAILY triamterene-hydrochlorothiazid 37.5-25 mg tablet 1 tab PO QAM Qty: 90 2RF rosuvastatin [Crestor] 40 mg tablet 40 mg PO DAILY Qty: 90 1RF trazodone 50 mg tablet 150 mg PO QHS PRN (Reason: Sleep) 90 Days Qty: 240 1RF fluticasone propionate 50 mcg/actuation spray,suspension 2 spray intranasal DAILY Qty: 3 3RF budesonide-formoterol [Symbicort] 160-4.5 mcg/actuation HFA aerosol inhaler 2 puff inhalation BID Qty: 3 3RF Rx Instructions: administer with spacer, rinse mouth after each use omeprazole 40 mg capsule,delayed release(DR/EC) 40 mg PO DAILY Qty: 90 3RF pramipexole 0.25 mg tablet 0.25 - 0.75 mg PO QHS Qty: 90 3RF potassium chloride 20 mEq tablet extended release 20 meq PO DAILY Qty: 90 2RF albuterol sulfate 90 mcg/actuation HFA aerosol inhaler 2 - 3 puff inhalation Q6H PRN (Reason: shortness of breath or wheezing) Qty: 8.5 3RF cetirizine 10 mg capsule 10 mg PO DAILY Qty: 30 1RF lubiprostone [Amitiza] 8 mcg capsule 8 mcg PO DAILY Qty: 30 2RF fluoxetine 40 mg capsule 40 mg PO DAILY Qty: 90 1RF Primary Care Provider: Joseph Smyth Referrals: Joseph Smyth MD [Primary Care Provider] - 1 Week Activity Restrictions/Additional Instructions: Your labs and CAT scan today were basically unremarkable other than your TSH waslow at 0.18. Call and follow-up your primary care physician. You may want to discuss with them having you being evaluated by a spares scheduler or specialist that deals with thyroid disease. Disposition Disposition: Home, Self Care What to do if you have Problems For any increased pain, shortness of breath, bleeding, nausea or vomiting, chestpain, or any unexpected problems, contact your Primary Care Provider. Call [facility] ([phone]) or report to the closest Emergency Room. Call 911 if necessary. 02/20/23 1318 <Electronically signed by Rafael Bradford MD> Cosigner Signature (if applicable): CC: Dr. Joseph Smyth MD ~ Signed [facility] Work Phone: [phone] Hospital Discharge instructions Additional Instructions Your labs and CAT scan today were basically unremarkable other than your TSH was low at 0.18. Call and follow-up your primary care physician. You may want to discuss with them having you being evaluated by a spares scheduler or specialist that deals with thyroid disease. [facility] Work Phone: [phone] 346-526509-23-2022 Hospital Discharge instructions Additional Instructions Please take the medication as directed to help resolve your infection. Because you have been having recurrent symptoms over the past month please consider following up with urology for further testing if needed. If you have any further concerns please [facility] the [facility] Work Phone: Consult note Author Susan Baez [facility] Note Date/Time October 26, 2024 2:30p m [facility] Medical Records Department [address] [place] [address] Pre-Anesthesia Evaluation 10/26/24 1427 MR#: [id number] Acct: [id number] Name: CULLEN CUEVA Rep #:[id number] : 1955 69 From: Susan Baez PCP: Dr. Joseph Smyth MD Status:R EG SDC Y Race: C Location: [place] [address] ASA Classification* ASA Classification ASA Classification: 3 Assessment & Plan Anesthesia* Anesthesia Assessment Anesthesia Assessment: Discussed sedation and/or anesthesia options, risks, benefits, and alternatives with patient/parents/legal guardian/POA. Questions invited. The patient/parents/legal guardian/POA seems to understand and agrees to proceedwith anesthesia plan. Reviewed the physical assessment, medical history, allergy history and patient home medications list prior to surgery/procedure/anesthetic and documented any changes. Performed airway and anesthesia risk assessments. Anesthesia Type Anesthesia Type: MAC History Source History Obtained from:: Patient and Chart Anesthesia Focused Assessment* Temperature: 97 F Pulse Rate: 77 Blood Pressure: 165/68 Respiratory Rate: 16 Pulse Ox: 97 Oxygen Delivery Method: Room Air Airway Assessment Mouth opens: >3 cm Mallampati Score: II Teeth Condition: Intact Neck Range of motion (ROM): Full ROM Comment: Upper permanent bridge Focused Labs Anesthesia Preop lab: CBC WBC 9.4 K/mm3 (4.4-11.0) 05/02/24 10:05/02/24 RBC 4.77 M/mm3 (4.2-5.4) 05/02/24 10:05/02/24 Hgb 14.3 g/dL (12.0-15.0) 05/02/24 10:05/02/24 Hct 43.0 % (37-47) 05/02/24 10:05/02/24 Plt Count 323 K/mm3 (150-450) 05/02/24 10:24 05/02/24 CHEMISTRY Potassium 3.5 mmol/L (3.5-5.1) 05/02/24 10:24 05/02/24 Sodium 138 mmol/L (136-145) 05/02/24 10:24 05/02/24 Magnesium 2.3 mg/dL (1.6-2.6) 10/08/21 10:35 10/08/21 Phosphorus 4.3 mg/dL (2.5-4.9) 09/25/15 07:42 09/25/15 BUN 15 mg/dL (7-18) 05/02/24 10:24 05/02/24 Creatinine 0.78 mg/dL (0.55-1.02) 05/02/24 10:05/02/24 Glucose 123 mg/dL (74-106) H 05/02/24 10:24 05/02/24 TSH 0.850 uIU/mL (0.358-3.740) 05/02/24 10:04/15 COAG Pre-Assessment Diagnosis/Proposed Procedure Planned Operative Procedure(s): EGD Anesthesia History Anesthesia History - lion hunter: Anesthesia History - lion hunter Hx Hospitalization No 10/24/24 13:50 Any Problems With Anesthesia No 10/24/24 13:50 Cholinesterase deficiency No 10/24/24 13:50 You/Your Family Experience No 10/24/24 13:50 fever (hyperthermia) with Relationship Recent Exposure to Contagious No 10/26/24 13:44 Disease Does patient have nerve No 10/24/24 13:50 stimulator Patient instructed to have device shut off --Does patient have Pacemaker No 10/26/24 13:44 or ICD? When Was Last Pacemaker Check QUESTION #4 FULL TEXT: You/Your Family Experience fever (hyperthermia) with Anesthesia Last Oral Intake Last Oral intake: Last Oral Intake NPO since 08:00 10/26/24 13:44 Meds taken in AM with sips of Yes 10/26/24 13:44 water? Meds patient instructed to take am of surgery PONV PONV - lion hunter: PONV - lion hunter Female Yes 10/24/24 13:50 HX of Motion Sickness Yes 10/24/24 13:50 HX of N/V After Surgery No 10/24/24 13:50 Non-Smoker Yes 10/24/24 13:50 Duration of Surgery greater No 10/24/24 13:50 than 60 minutes Number of Risk Factors 3 10/24/24 13:50 PONV Score Moderate Risk 10/24/24 13:50 Height & Weight Height & Weight: Anesthesia: Height & Weight Height 5 ft 7 in 10/26/24 13:44 Weight: 137.4 kg 10/26/24 13:44 Body Mass Index (BMI) 47.4 10/26/24 13:44 Respiratory Assessment Respiratory Assessment - lion hunter: Respiratory Tract Infection Hx - lion hunter Hx Respiratory Tract Infection No 10/24/24 13:50 STOP Sleep Apnea STOP Sleep Apnea - lion hunter: STOP Sleep Apnea - lion hunter Hx Hypertension No 10/24/24 13:50 Hx Sleep Apnea Yes 10/24/24 13:50 CPAP No 10/24/24 13:50 BIPAP Yes 10/24/24 13:50 Do you snore loudly (louder than talking or can be heard Do you often feel tired/ fatigued/ sleepy during daytime? Has anyone observed you stop breathing during sleep? STOP Results Positive 10/24/24 13:50 QUESTION #5 FULL TEXT : Do you snore loudly (louder than talking or can be heard through closed doors)? 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 Specify any problems Hx of Preganancy in last 3 No 10/24/24 13:50 Months Nurse Filling Out Transfusion MGRIFFITH 10/24/24 13:50 & Questions: Date: 10/24/24 10/24/24 13:50 Time: 13:52 10/24/24 13:50 Patient unable to answer at this time (ie. confused, unrespo /Reproduction History /Reproductive History - lion hunter: /Reproductive Hx- lion hunter Hx Now No 10/24/24 13:50 Gestational Age (in weeks): EDC: Hx Hx Para Hx Section SAB No 10/24/24 13:50 Active Medications Active Medications: Current Medications Generic Name Dose Route Start Last Admin Trade Name Freq PRN Reason Stop Dose Admin Lactated Ringer's 1,000 mls @ 15 mls/hr 10/26/24 13:45 10/26/24 13:50 IV 15 mls/hr .Q48H RAMANA Administration PFSH Medical History Shortness of breath on exertion Anxiety and depression History of fall Chronic back pain Borderline type 2 diabetes mellitus Flu vaccine need Hx: UTI (urinary tract infection) Malaise and fatigue Allergies Dysuria Blood glucose elevated Dry skin dermatitis Musculoskeletal back pain Venous insufficiency of both lower extremities Post-menopausal Marijuana use Injury of back Restless legs History of diverticulitis Gastric reflux Former smoker BiPAP (biphasic positive airway pressure) dependence Leg cramps History of edema History of stress test History of echocardiogram Cardiology follow-up encounter Health care maintenance Insomnia Asthma exacerbation Scoliosis Essential hypertension Family history of coronary artery disease Epigastric abdominal tenderness Sinusitis Chest congestion Routine health maintenance History of gallstones Back problem Arthritis Diverticulitis Barretts esophagus Depression (emotion) Morbid obesity with BMI of 40.0-44.9, adult Anxiety Hypothyroidism Respiratory insufficiency Hyperlipemia Home Medications ?Medication ?Instructions ?Recorded ?Last Taken ?Type calcium carbonate 1,000 mg PO DAILY 06/22/20 0 12/05/20 History cholecalciferol (vitamin D3) 25 2,000 unit PO DAILY 12/05/20 History mcg (1,000 unit) chewable tablet mecobalamin (vitamin B12) 5,000 5,000 mcg PO DAILY SUP PLEMENT 12/05/20 12/05/20 History mcg disintegrating tablet triamcinolone acetonide 0.1 % 1 applic topical BID PRN rash 08/29/22 Unknown Rx topical cream #453.6 grams tiotropium bromide 1.25 2 puff inhalation DAILY PRN SOB 02/27/23 Unknown History mcg/actuation mist for inhalation (Spiriva Respimat) budesonide-formoterol HFA 160 2 puff inhalation BID ND N ASTHMA 04/30/23 Unknown History mcg-4.5 mcg/actuation aerosol inhaler (Symbicort) montelukast 10 mg tablet 10 mg PO QHS PRN ALLERGIES 0 10/30/23 Unknown History (Singulair) compress.stocking,knee,reg,lrg #2 ea 11/02/23 Unknown Rx albuterol sulfate 90 mcg/actuation 2 - 3 puff inhalati on Q6H PRN 05/10/24 Unknown Rx aerosol inhaler shortness of breath or wheez ing #8.5 grams rosuvastatin 40 mg tablet (Crestor) 40 mg PO DAILY #90 tabs 07/28/24 Unknown Rx levothyroxine 175 mcg tablet 175 mcg PO DAILY #90 tabs 08/22/24 10/26/24 Rx omeprazole 40 mg capsule,delayed 40 mg PO DAILY #90 ca ps 08/22/24 10/26/24 Rx release zolpidem 5 mg tablet 5 mg PO QHS PRN insomnia #30 tabs 09/23/24 Unknown Rx pramipexole 0.25 mg tablet 0.25 - 0.75 mg (1 - 3 x 0.2 5 mg) 10/10/24 Unknown Rx PO QHS RLS #90 tabs fluoxetine 20 mg capsule 20 mg PO QDAY #90 caps 10/21 Unknown Rx fluoxetine 40 mg capsule 40 mg PO DAILY #90 caps 03/09 Unknown Rx ferrous sulfate 325 mg (65 mg 325 mg PO DAILY 10/24/24 Unknown History iron) tablet (FeroSul) trazodone 50 mg tablet See Rx Instructions PO QHS P RN 10/24/24 Unknown History Sleep Allergy/AdvReac Type Severity Reaction Status Date / Time pravastatin (From Pravachol) Allergy Mild itching Verified 10/26/24 13:34 ketoprofen (From Orudis) Allergy Nausea/Vom/ Verified 10/26/24 13:34 Diarrhea hydrochlorothiazide (From AdvReac Intermediate Other Verified 10/26/24 13:34 Dyazide) triamterene (From Dyazide) AdvReac Intermediate Other Verified 10/26/24 13:34 Family History Sister CAD (coronary artery disease) Thyroid disorder Brother CAD (coronary artery disease) Heart disease Myocardial infarction Alcoholism Angina at rest Mother Diabetes Myocardial infarction Father Hypertension Heart disease Myocardial infarction Angina at rest Thyroid disorder Grandfather Alcoholism Surgical History H/O cataract removal with insertion of prosthetic lens History of thoracic surgery History of cholecystectomy (~1998) History of hysterectomy (~1998) History of colonoscopy History of esophagogastroduodenoscopy (EGD) (~2015) Social History household members: none Smoking Status: Former smoker quit date: 06/15/84 Tobacco: How many years used: 15 Electronic Cigarette Use: not used how long ago did patient quit smokin years second hand exposure: No alcohol intake: current alcohol intake frequency: holidays/special occasions only Alcohol type: wine substance use type: does not use what type of physical activity do you participate in: none Review of Systems (Anesthesia) ROS Narrative System reviewed and no additional complaints, except as documented. 10/26/24 1430 <Electronically signed by Susan Baez > Date _ Susan Baez Cosigner Signature: Date CC: ~ Signed [facility] Work Phone: Consult note Author Twan Serrato [facility] Note Date/Time October 26, 2024 3:51p [facility] Medical Records Department [address] [place], [place] [address] [address] Anesthesia Postop Eval I 10/26/241513 MR#: [id number] Acct: [id number] Name: CULLEN CUEVA Rep #:[id number] : 1955 69 From: Twan TORIBIO PCP: Dr. Joseph Smyth MD Status:R [facility] Y Race: C Location: [place] [address] Anesthesia: Postop Eval I Current Vital Signs Temperature: 97.7 F Pulse Rate: 83 Blood Pressure: 123/68 Respiratory Rate: 16 Pulse Ox: 94 Assessment Airway patent: Yes Spontaneous unlabored respirations: Yes nausea: No Vomiting: No Anesthesia Complication: No Fluid Hydration Crystalloid volume administer (ml): 200 Total IV fluid infused: 200 Progress Note Anesthesia document: Postop Eval 1 completed: Yes 10/26/241513 <Electronically signed by Twan Serrato CRNA> Date _ Twan Serrato SOCIOLOGY PROFESSOR Cosigner Signature: Date CC: ~ Signed [facility] Work Phone: Evaluation note* Diagnosis Onset Date Resolution Status Asthma acute JADEN (obstructive sleep apnea) acute Pulmonary hypertension acute Chronic cough chronic Morbid obesity with BMI of 40.0-44.9, adult chronic Health care maintenance acut e Barretts esophagus chronic Essential hypertension chron ic Hyperlipemia chronic Hypothyroidism chronic Insomnia chronic Asthma acute JADEN (obstructive sleep apnea) acute [facility] Work Phone: Evaluation note* Diagnosis Onset Date Resolution Status Health care maintenance acut e Barretts esophagus chronic Essential hypertension chron ic Hyperlipemia chronic Hypothyroidism chronic Insomnia chronic Asthma acute JADEN (obstructive sleep apnea) acute Shortness of breath chronic Asthma acute JADEN (obstructive sleep apnea) acute Pulmonary hypertension acute Shortness of breath chronic [facility] Work Phone: Evaluation note* Diagnosis Onset Date Resolution Status Health care maintenance acut e Barretts esophagus chronic Essential hypertension chron ic Hyperlipemia chronic Hypothyroidism chronic Insomnia chronic Asthma acute JADEN (obstructive sleep apnea) acute Shortness of breath chronic Asthma acute JADEN (obstructive sleep apnea) acute Pulmonary hypertension acute Shortness of breath chronic Essential hypertension chron [facility] Work Phone: Evaluation note* Diagnosis Onset Date Resolution Status Health care maintenance acut e Barretts esophagus chronic Essential hypertension chron ic Hyperlipemia chronic Hypothyroidism chronic Insomnia chronic Asthma acute JADEN (obstructive sleep apnea) acute Shortness of breath chronic Asthma acute JADEN (obstructive sleep apnea) acute Pulmonary hypertension acute Shortness of breath chronic Lower extremity edema noneac tive Elevated blood pressure reading noneactive BMI 45.0-49.9, adult noneact zackary Essential hypertension chron ic Essential hypertension chron ic Morbid obesity with BMI of 40.0-44.9, adult chronic Venous insufficiency of both lower extremities chronic [facility] Work Phone: Evaluation note* Diagnosis Onset Date Resolution Status Shortness of breath chronic Asthma acute JADEN (obstructive sleep apnea) acute Pulmonary hypertension acute Shortness of breath chronic Lower extremity edema noneac tive Elevated blood pressure reading noneactive BMI 45.0-49.9, adult noneact azckary Essential hypertension chron ic Essential hypertension chron ic Morbid obesity with BMI of 40.0-44.9, adult chronic Venous insufficiency of both lower extremities chronic [facility] Work Phone: Evaluation note* Diagnosis Onset Date Resolution Status Shortness of breath chronic Asthma acute JADEN (obstructive sleep apnea) acute Pulmonary hypertension acute Shortness of breath chronic Lower extremity edema noneac tive Elevated blood pressure reading noneactive BMI 45.0-49.9, adult noneact zackary Essential hypertension chron ic Essential hypertension chron ic Morbid obesity with BMI of 40.0-44.9, adult chronic Venous insufficiency of both lower extremities chronic Musculoskeletal back pain ac [place] Essential hypertension chron ic [facility] Work Phone: Evaluation note* Diagnosis Onset Date Resolution Status Essential hypertension chron ic Morbid obesity with BMI of 40.0-44.9, adult chronic Venous insufficiency of both lower extremities chronic Musculoskeletal back pain ac [place] Essential hypertension chron ic Asthma acute Essential hypertension chron ic Venous insufficiency of both lower extremities chronic Asthma acute JADEN (obstructive sleep apnea) acute Pulmonary hypertension acute [facility] Work Phone: Evaluation note* Diagnosis Onset Date Resolution Status Musculoskeletal back pain ac [place] Essential hypertension chron ic Asthma acute Essential hypertension chron ic Venous insufficiency of both lower extremities chronic Asthma acute JADEN (obstructive sleep apnea) acute Pulmonary hypertension acute [facility] Work Phone: Evaluation note* Diagnosis Onset Date Resolution Status Musculoskeletal back pain ac [place] Essential hypertension chron ic Asthma acute Essential hypertension chron ic Venous insufficiency of both lower extremities chronic Asthma acute JADEN (obstructive sleep apnea) acute Pulmonary hypertension acute Essential hypertension chron ic URI (upper respiratory infection) noneactive [facility] Work Phone: Evaluation note* Diagnosis Onset Date Resolution Status Musculoskeletal back pain ac [place] Essential hypertension chron ic Asthma acute Essential hypertension chron ic Venous insufficiency of both lower extremities chronic Asthma acute JADEN (obstructive sleep apnea) acute Pulmonary hypertension acute Essential hypertension chron ic URI (upper respiratory infection) noneactive Asthma acute JADEN (obstructive sleep apnea) acute Morbid obesity with BMI of 40.0-44.9, adult chronic JADEN (obstructive sleep apnea) acute Essential hypertension chron ic Hyperlipemia chronic Hypothyroidism chronic URI (upper respiratory infection) noneactive [facility] Work Phone: Evaluation note* Diagnosis Onset Date Resolution Status Health care maintenance acut e Anxiety chronic Dry skin dermatitis chronic Essential hypertension chron ic GERD (gastroesophageal reflux disease) chronic Hypothyroidism chronic Dysuria acute [facility] Work Phone: Evaluation note* Diagnosis Onset Date Resolution Status Health care maintenance acut e Anxiety chronic Dry skin dermatitis chronic Essential hypertension chron ic GERD (gastroesophageal reflux disease) chronic Hypothyroidism chronic Dysuria acute Asthma acute JADEN (obstructive sleep apnea) acute Pulmonary hypertension acute Allergies acute Essential hypertension chron ic Hyperlipemia chronic Hypothyroidism chronic Barretts esophagus chronic Constipation chronic [facility] Work Phone: Evaluation note* Diagnosis Onset Date Resolution Status Asthma acute JADEN (obstructive sleep apnea) acute Pulmonary hypertension acute Allergies acute Essential hypertension chron ic Hyperlipemia chronic Hypothyroidism chronic Barretts esophagus chronic Constipation chronic [facility] Work Phone: Evaluation note* Diagnosis Onset Date Resolution Status Asthma acute JADEN (obstructive sleep apnea) acute Pulmonary hypertension acute Allergies acute Essential hypertension chron ic Hyperlipemia chronic Hypothyroidism chronic Barretts esophagus chronic Constipation chronic Hx: UTI (urinary tract infection) acute Malaise and fatigue acute Essential hypertension chron ic Hypothyroidism chronic Insomnia chronic [facility] Work Phone: Evaluation note* Diagnosis Onset Date Resolution Status Allergies acute Essential hypertension chron ic Hyperlipemia chronic Hypothyroidism chronic Barretts esophagus chronic Constipation chronic Hx: UTI (urinary tract infection) acute Malaise and fatigue acute Essential hypertension chron ic Hypothyroidism chronic Insomnia chronic [facility] Work Phone: Evaluation note* Diagnosis Onset Date Resolution Status Hx: UTI (urinary tract infection) acute Essential hypertension chron ic Hypothyroidism chronic Insomnia chronic Malaise and fatigue resolved Choledocholithiasis acute Barretts esophagus chronic Constipation chronic Flu vaccine need acute Essential hypertension chron ic Hypothyroidism chronic Insomnia chronic Venous insufficiency of both lower extremities chronic Malaise and fatigue resolved [facility] Work Phone: Evaluation note* Diagnosis Onset Date Resolution Status Choledocholithiasis acute Barretts esophagus chronic Constipation chronic Flu vaccine need acute Essential hypertension chron ic Hypothyroidism chronic Insomnia chronic Venous insufficiency of both lower extremities chronic Malaise and fatigue resolved JADEN (obstructive sleep apnea) acute Asthma chronic [facility] Work Phone: Evaluation note* Diagnosis Onset Date Resolution Status Choledocholithiasis acute Barretts esophagus chronic Constipation chronic Flu vaccine need acute Essential hypertension chron ic Hypothyroidism chronic Insomnia chronic Venous insufficiency of both lower extremities chronic Malaise and fatigue resolved JADEN (obstructive sleep apnea) acute Asthma chronic Choledocholithiasis acute Barretts esophagus chronic Constipation chronic Pancreatic lesion chronic Essential hypertension chron ic Hypothyroidism chronic Insomnia chronic Pancreatic lesion chronic Malaise and fatigue resolved [facility] Work Phone: Evaluation note* Diagnosis IPMN (intraductal papillary mucinous neoplasm)- Primary Neoplasm of unspecified nature of digestive system documented in this encounter [facility] Work Phone: Evaluation note* Diagnosis IPMN (intraductal papillary mucinous neoplasm) Neoplasm of unspecified nature of digestive system documented in this encounter [facility] Work Phone: Evaluation note* Diagnosis IPMN (intraductal papillary mucinous neoplasm)- Primary Neoplasm of unspecified nature of digestive system documented in this encounter [facility] Work Phone: History and physical note Author Brant Langley [facility] Note Date/Time October 26, 2024 2:30p m [facility] Medical Records Department [address] [place] [id number] History & Physical Exam 10/26/24 1427 MR#: [id number] Acct: [id number] Name: CULLEN CUEVA Rep #:[id number] : 1955 69 From: Brant Langley DO PCP: Dr. Joseph Smyth MD Status:[facility] Location: [place] [address] HPI - General General Date of Admission: 10/26/24 Date of Service: 10/26/24 Chief Complaint: urbano's esophagus HPI Narrative CULLEN CUEVA, is a 69 F who presentsPABHARATH CUEVA, is a 69 F who presents to the office today for follow up. PCP OV 08.28.22 for yearly follow up. ? Colonoscopy Dr. Gonzales 02.07.19, screening diverticulosis; internal hemorrhoids. No specimens collected ? EGD Dr. Gonzales 06.01.20 non-severe reflux esophagitis without metaplasia; small hiatal hernia; multiple gastric fundic gland polyps; gastritis. H.Pylori negative. *BGI established 11.28.22 Known history of Urbano?s diagnosed many years prior; currently taking omeprazole 40mg daily. Nausea and bloating with emesis, RUQ discomfort. Cholecystectomy age 40 during which three stones were visualized butonly two retrieved. Bowels fluctuate between constipation (no BM 2-3 days or smaller harder stools several times a day) and loose stools which last no longerthan a day, typically triggered by new foods, 1-2 times a week. ? Biochemical ESR, LDH, RAST, SREEKANTH comp, ANCA, gastrin, GAME, POLO, chromogranin A, IBD without pertinent abnormality ? CRP H5.44, gastrin H135. RAST High: shrimp ? Stool calprotectin, lactoferrin WNL Contact 12.23.22 with results noting difficulty with constipation. Start amitiza 8mcg QD and increase to BID in seven days if no improvement. Contact 03.06.23 with itching and nausea. ? Biochemical CBC, CMP, LFT (K+L3.2), amylase, lipase without additional pertinent abnormality. ? EGD 03.19.23 short-segment Urbano?s, metaplasia neg; multiple hyperplastic gastric polyps; small hiatal hernia. Contact 04.02.23 reporting improvement of symptoms following elimination of a medication. OV 04.23.23 diazide stopped which caused resolution of symptoms. Continues with Amitiza 8mcg QD PRN as routine use causes loose stools. ? MRCP 05.19.23 hyperintense cystic lesion of pancreatic head without ductal dilation, most likely primary cystic neoplasm ie. IPMN. Recommendrepeat MRCP in one year for stability. Contact 06.30.23 with MRCP results; recommend tumor markers for baseline ? Biochemical CA19-9, CEA WNL OV 07.09.23 reports she is having some intermittent nausea and afternoon/evening bloating. OV 5.6.25 pt reports increased difficulty swallowing, stating that things are getting caught and cutting off her trachea. Notes nausea about 3 times a week, cannot pinpoint trigger or alleviating factors. [facility] Medical History Shortness of breath on exertion Anxiety and depression History of fall Chronic back pain Borderline type 2 diabetes mellitus Flu vaccine need Hx: UTI (urinary tract infection) Malaise and fatigue Allergies Dysuria Blood glucose elevated Dry skin dermatitis Musculoskeletal back pain Venous insufficiency of both lower extremities Post-menopausal Marijuana use Injury of back Restless legs History of diverticulitis Gastric reflux Former smoker BiPAP (biphasic positive airway pressure) dependence Leg cramps History of edema History of stress test History of echocardiogram Cardiology follow-up encounter Health care maintenance Insomnia Asthma exacerbation Scoliosis Essential hypertension Family history of coronary artery disease Epigastric abdominal tenderness Sinusitis Chest congestion Routine health maintenance History of gallstones Back problem Arthritis Diverticulitis Barretts esophagus Depression (emotion) Morbid obesity with BMI of 40.0-44.9, adult Anxiety Hypothyroidism Respiratory insufficiency Hyperlipemia Home Medications ?Medication ?Instructions ?Recorded ?Last Taken ?Type calcium carbonate 1,000 mg PO DAILY 06/22/20 0 12/05/20 History cholecalciferol (vitamin D3) 25 2,000 unit PO DAILY 12/05/20 History mcg (1,000 unit) chewable tablet mecobalamin (vitamin B12) 5,000 5,000 mcg PO DAILY SUP PLEMENT 12/05/20 12/05/20 History mcg disintegrating tablet triamcinolone acetonide 0.1 % 1 applic topical BID PRN rash 08/29/22 Unknown Rx topical cream #453.6 grams tiotropium bromide 1.25 2 puff inhalation DAILY PRN SOB 02/27/23 Unknown History mcg/actuation mist for inhalation (Spiriva Respimat) budesonide-formoterol HFA 160 2 puff inhalation BID ND N ASTHMA 04/30/23 Unknown History mcg-4.5 mcg/actuation aerosol inhaler (Symbicort) montelukast 10 mg tablet 10 mg PO QHS PRN ALLERGIES 0 10/30/23 Unknown History (Singulair) compress.stocking,knee,reg,lrg #2 ea 11/02/23 Unknown Rx albuterol sulfate 90 mcg/actuation 2 - 3 puff inhalati on Q6H PRN 05/10/24 Unknown Rx aerosol inhaler shortness of breath or wheez ing #8.5 grams rosuvastatin 40 mg tablet (Crestor) 40 mg PO DAILY #90 tabs 07/28/24 Unknown Rx levothyroxine 175 mcg tablet 175 mcg PO DAILY #90 tabs 08/22/24 10/26/24 Rx omeprazole 40 mg capsule,delayed 40 mg PO DAILY #90 ca ps 08/22/24 10/26/24 Rx release zolpidem 5 mg tablet 5 mg PO QHS PRN insomnia #30 tabs 09/23/24 Unknown Rx pramipexole 0.25 mg tablet 0.25 - 0.75 mg (1 - 3 x 0.2 5 mg) 10/10/24 Unknown Rx PO QHS RLS #90 tabs fluoxetine 20 mg capsule 20 mg PO QDAY #90 caps 10/21 Unknown Rx fluoxetine 40 mg capsule 40 mg PO DAILY #90 caps 03/09 Unknown Rx ferrous sulfate 325 mg (65 mg 325 mg PO DAILY 10/24/24 Unknown History iron) tablet (FeroSul) trazodone 50 mg tablet See Rx Instructions PO QHS P RN 10/24/24 Unknown History Sleep Allergy/AdvReac Type Severity Reaction Status Date / Time pravastatin (From Pravachol) Allergy Mild itching Verified 10/26/24 13:34 ketoprofen (From Orudis) Allergy Nausea/Vom/ Verified 10/26/24 13:34 Diarrhea hydrochlorothiazide (From AdvReac Intermediate Other Verified 10/26/24 13:34 Dyazide) triamterene (From Dyazide) AdvReac Intermediate Other Verified 10/26/24 13:34 Family History Sister CAD (coronary artery disease) Thyroid disorder Brother CAD (coronary artery disease) Heart disease Myocardial infarction Alcoholism Angina at rest Mother Diabetes Myocardial infarction Father Hypertension Heart disease Myocardial infarction Angina at rest Thyroid disorder Grandfather Alcoholism Surgical History H/O cataract removal with insertion of prosthetic lens History of thoracic surgery History of cholecystectomy (~1998) History of hysterectomy (~1998) History of colonoscopy History of esophagogastroduodenoscopy (EGD) (~2016) Social History household members: none Smoking Status: Former smoker quit date: 06/15/84 Tobacco: How many years used: 15 Electronic Cigarette Use: not used how long ago did patient quit smokin years second hand exposure: No alcohol intake: current alcohol intake frequency: holidays/special occasions only Alcohol type: wine substance use type: does not use what type of physical activity do you participate in: none ROS Constitutional Constitutional: Denies fatigue, fever(s), poor appetite, weight gain or weight loss Gastrointestinal Gastrointestinal: Denies belching, bloating, change in bowel habits, change in stool character, chewing difficulty, coffee ground emesis, constipation, cramping, diarrhea, dyspepsia, dysphagia, early satiety, excessive flatus, fecalincontinence, heartburn, hematemesis, hematochezia, hemorrhoids, loose stools, melena, nausea, odynophagia, rectal bleeding, tenesmus, vomiting or weight changes Vital Signs Vital Signs Vital Signs: 10/26/24 13:44 10/26/24 13:44 Temperature 97 F L Temperature Source Temporal Pulse Rate 77 Respiratory Rate 16 Respiratory Pattern Normal Blood Pressure 165/68 H Blood Pressure Mean 100 Blood Pressure Source Monitor Blood Pressure Position Semi-Fowlers Blood Pressure Location Right Arm Pulse Ox 97 Oxygen Delivery Method Room Air Weight Weight: 302 lb 14.642 oz Body Mass Index (BMI) 47.4 Physical Exam Const alert, oriented x3, no apparent distress and healthy appearing General Appearance: cooperative GI normal to inspection, nondistended, normoactive bowel sounds, soft to palpation,non-tender and non-distended Percussion: normal to percussion Rectal Exam: deferred Assessment & Plan Assessment/Plan (1) Dysphagia: (2) Globus sensation: (3) Barretts esophagus: QUALIFIERS: Urbano's esophagus type: without dysplasia QualifiedCode(s): K22.70 - Urbano's esophagus without dysplasia PLAN: Assessment and Plan Assessment and Plan (1) Barretts esophagus: Status: Chronic Qualifiers: Urbano's esophagus type: without dysplasia Qualified Code(s): K22.70 -Urbano's esophagus without dysplasia Plan: She will undergo surveillance endoscopy for Urbano's esophagus. We will continue her on her current medicine regimen. She was explained alternatives, risk, benefits including outstanding bleeding, infection, sepsis, perforation, need for emergent surgery . She will have an ASA 2. Upper endoscopy did show anirregular distal esophagus. However her biopsies didnot show intestinal metaplasia, dysplasia or cancer. She is continuing PPI therapy and not having any breakthrough symptoms at this time. (2) Constipation: Status: Chronic Qualifiers: Constipation type: slow transit constipation Qualified Code(s): K59.01 - Slow transit constipation Plan: She is complaining more constipation and diarrhea. Differential diagnosis does include overflow incontinence, diverticular disease, exocrine pancreatic insufficiency, low-grade ischemic colitis, medication side effect. She will go,thing, stool testing and possibly colonoscopy in the future. Patient is okay with this plan. We started on Amitiza and she is actually doing very well with Amitiza. It is allowing her to have a daily bowel movement. We will continue that for the near future over the next 6 months. (3) Pancreatic lesion: Status: Chronic Comment: MRCP 12.5 (4) Choledocholithiasis: Status: Acute Plan: She has history of choledocholithiasis. Since she is having right upper quadrant pain we will order an MRCP. MRCP: Specifically, no evidence of choledocholithiasis. 1 cm T2 hyperintense cystic lesion in the head of the pancreas without main pancreatic duct dilatation. This most likely represents a primary cystic neoplasm of the pancreas such as side branch intraductal papillary mucinous neoplasm (IPMN). Recommend: Repeat MRCP in 4 months and repeat CA 19-9 in 4 months 10/26/24 1430 <Electronically signed by Brant Langley DO> Cosigner Signature (if applicable): CC: Dr. Joseph Smyth MD; Brant Langley DO~ Signed [facility] Work Phone: Reason for referral (narrative)No reason for referral information availableWThe [facility] Work Phone: Reason for visit Narrative* Imaging (Routine) - Pending Review Specialty Diagnoses / Procedures Referred By Contac t Referred To Contact Radiology Diagnoses IPMN (intraductal papillary mucinous neoplasm) Procedures MRCP pancreas w and wo IV contrast Autumn Poole PA-C [address] Department of [place] [address] Phone: tel: fax: Referral ID Status Reason Start Date Expiration Date Visits Requested Visits Authorized [id number] Pending Review Perform Procedure 4 04/06/2025 1 1 [facility] Work Phone: Summary Purpose Family History No Family History Records Found Relationship Condition Age at Onset Recorded Date/T joshua sister Coronary artery disease Unknown Disorder of thyroid Unknown brother Coronary artery disease Unknown Cardiac disease Unknown Myocardial infarction Unknown Alcoholism Unknown Angina at rest Unknown mother Diabetes mellitus Unknown father Hypertension Unknown grandfather Alcoholism Unknown Advance Directives No Advanced Directives Records Found Advance Directive Response Recorded Date/ Time Advance Directives No February 11, 2014 5:05pm Living Will No September 21, 2021 5:47pm Power of Flatbed Owner Operator No September 21 5:47pm Advance Directive Response Recorded Date/ Time Advance Directives No February 11, 2014 5:05pm Living Will No October 25, 2021 8 :56am Power of Flatbed Owner Operator No October 25, 2021 8:56am Advance Directive Response Recorded Date/ Time Advance Directives No February 11, 2014 5:05pm Living Will No April 03 4:21am Power of Flatbed Owner Operator No April 03, 2022 4:21am Advance Directive Response Recorded Date/ Time Advance Directives No February 11, 2014 4:05pm Living Will No April 03 3:21am Power of Flatbed Owner Operator No April 03, 2022 3:21am Advance Directive Response Recorded Date/ Time Advance Directives No May 21, 2020 11:31am Living Will No April 03 4:21am Power of Flatbed Owner Operator No April 03, 2022 4:21am Advance Directive Response Recorded Date/ Time Advance Directives No May 21, 2020 11:31am Living Will No February 20 023 10:10am Power of Flatbed Owner Operator No February 20, 2023 10:10am Advance Directive Response Recorded Date/ Time Advance Directives No May 21, 2020 10:31am Living Will No March 16 9:44am Power of Flatbed Owner Operator No March 16 9:44am Advance Directive Response Recorded Date/ Time Advance Directives No May 21, 2020 10:31am Living Will No April 30, 9:47am Power of Flatbed Owner Operator No April 30, 2023 9:47am Advance Directive Response Recorded Date/ Time Do you have a Healthcare Power of Flatbed Owner Operator? No October 24, 2024 1:50pm Advance Directives No May 21, 2020 11:31am Chief Complaint and Reason for Visit Chief Complaint 3 M FU 3 M FU 3 M FU LACERATION Reason for Visit Asthma JADEN (obstructive sleep apnea) Pulmonary hypertension Chronic cough Morbid obesity with BMI of 40.0-44.9, adult Health care maintenance Barretts esophagus Essential hypertension Hyperlipemia Hypothyroidism Insomnia Asthma JADEN (obstructive sleep apnea) Chief Complaint 3 M FU 3 M FU 3 M FU LACERATION BREAST CANCER SCREENING Reason for Visit Asthma JADEN (obstructive sleep apnea) Pulmonary hypertension Chronic cough Morbid obesity with BMI of 40.0-44.9, adult Health care maintenance Barretts esophagus Essential hypertension Hyperlipemia Hypothyroidism Insomnia Asthma JADEN (obstructive sleep apnea) Chief Complaint 3 M FU 3 M FU LACERATION BREAST CANCER SCREENING acute visit increased wt, and Bp. see note Reason for Visit Health care maintena nce Barretts esophagus Essential hypertension Hyperlipemia Hypothyroidism Insomnia Asthma JADEN (obstructive sleep apnea) Shortness of breath Asthma JADEN (obstructive sleep apnea) Pulmonary hypertension Shortness of breath Chief Complaint 3 M FU 3 M FU LACERATION BREAST CANCER SCREENING acute visit increased wt, and Bp. see note BP & WT CHECK Reason for Visit Health care maintena nce Barretts esophagus Essential hypertension Hyperlipemia Hypothyroidism Insomnia Asthma JADEN (obstructive sleep apnea) Shortness of breath Asthma JADEN (obstructive sleep apnea) Pulmonary hypertension Shortness of breath Essential hypertension Chief Complaint 3 M FU 3 M FU LACERATION BREAST CANCER SCREENING acute visit increased wt, and Bp. see note BP & WT CHECK 3 M FU Reason for Visit Health care maintena nce Barretts esophagus Essential hypertension Hyperlipemia Hypothyroidism Insomnia Asthma JADEN (obstructive sleep apnea) Shortness of breath Asthma JADEN (obstructive sleep apnea) Pulmonary hypertension Shortness of breath Lower extremity edema Elevated blood pressure reading BMI 45.0-49.9, adult Essential hypertension Essential hypertension Morbid obesity with BMI of 40.0-44.9, adult Venous insufficiency of both lower extremities Chief Complaint LACERATION BREAST CANCER SCREENING acute visit increased wt, and Bp. see note BP & WT CHECK 3 M FU Reason for Visit Shortness of breath Asthma JADEN (obstructive sleep apnea) Pulmonary hypertension Shortness of breath Lower extremity edema Elevated blood pressure reading BMI 45.0-49.9, adult Essential hypertension Essential hypertension Morbid obesity with BMI of 40.0-44.9, adult Venous insufficiency of both lower extremities Chief Complaint acute visit increased wt, and Bp. see note BP & WT CHECK 3 M FU 1 M FU Reason for Visit Shortness of breath Asthma JADEN (obstructive sleep apnea) Pulmonary hypertension Shortness of breath Lower extremity edema Elevated blood pressure reading BMI 45.0-49.9, adult Essential hypertension Essential hypertension Morbid obesity with BMI of 40.0-44.9, adult Venous insufficiency of both lower extremities Musculoskeletal back pain Essential hypertension Chief Complaint 3 M FU 1 M FU SOB/Acute HIGH BP 6 M FU Reason for Visit Essential hypertensi on Morbid obesity with BMI of 40.0-44.9, adult Venous insufficiency of both lower extremities Musculoskeletal back pain Essential hypertension Asthma Essential hypertension Venous insufficiency of both lower extremities Asthma JADEN (obstructive sleep apnea) Pulmonary hypertension Chief Complaint 1 M FU SOB/Acute HIGH BP 6 M FU gu Reason for Visit Musculoskeletal back pain Essential hypertension Asthma Essential hypertension Venous insufficiency of both lower extremities Asthma JADEN (obstructive sleep apnea) Pulmonary hypertension Chief Complaint 1 M FU SOB/Acute HIGH BP 6 M FU gu 1 M FU, increased nausea and fatigue Reason for Visit Musculoskeletal back pain Essential hypertension Asthma Essential hypertension Venous insufficiency of both lower extremities Asthma JADEN (obstructive sleep apnea) Pulmonary hypertension Essential hypertension URI (upper respiratory infection) Chief Complaint 1 M FU SOB/Acute HIGH BP 6 M FU gu 1 M FU, increased nausea and fatigue 6 wk FU 3 M FU Reason for Visit Musculoskeletal back pain Essential hypertension Asthma Essential hypertension Venous insufficiency of both lower extremities Asthma JAEDN (obstructive sleep apnea) Pulmonary hypertension Essential hypertension URI (upper respiratory infection) Asthma JADEN (obstructive sleep apnea) Morbid obesity with BMI of 40.0-44.9, adult JADEN (obstructive sleep apnea) Essential hypertension Hyperlipemia Hypothyroidism URI (upper respiratory infection) Chief Complaint CERVICAL AND THORACI C SPINE PT HAS RX ANNUAL SCREENING POSSIBLE UTI [facility] Visit [facility] [place] Anxiety Dry skin dermatitis Essential hypertension GERD (gastroesophageal reflux disease) Hypothyroidism Dysuria Chief Complaint CERVICAL AND THORACI C SPINE PT HAS RX ANNUAL SCREENING POSSIBLE UTI 6 M FU E ORDER Allergies Consult E-ORDER Reason for Visit [facility] Anxiety Dry skin dermatitis Essential hypertension GERD (gastroesophageal reflux disease) Hypothyroidism Dysuria Asthma JADEN (obstructive sleep apnea) Pulmonary hypertension Allergies Essential hypertension Hyperlipemia Hypothyroidism Barretts esophagus Constipation Chief Complaint ANNUAL SCREENING POSSIBLE UTI 6 M FU E ORDER Allergies Consult E-ORDER Reason for Visit [facility] Anxiety Dry skin dermatitis Essential hypertension GERD (gastroesophageal reflux disease) Hypothyroidism Dysuria Asthma JADEN (obstructive sleep apnea) Pulmonary hypertension Allergies Essential hypertension Hyperlipemia Hypothyroidism Barretts esophagus Constipation Chief Complaint ANNUAL SCREENING POSSIBLE UTI 6 M FU E ORDER Allergies Consult E-ORDER e order Reason for Visit Health care [facility] [place] Anxiety Dry skin dermatitis Essential hypertension GERD (gastroesophageal reflux disease) Hypothyroidism Dysuria Asthma JADEN (obstructive sleep apnea) Pulmonary hypertension Allergies Essential hypertension Hyperlipemia Hypothyroidism Barretts esophagus Constipation Chief Complaint 6 M FU E ORDER Allergies Consult E-ORDER e order GENERAL ILLNESS Reason for Visit Asthma JADEN (obstructive sleep apnea) Pulmonary hypertension Allergies Essential hypertension Hyperlipemia Hypothyroidism Barretts esophagus Constipation Chief Complaint 6 M FU E ORDER Allergies Consult E-ORDER e order GENERAL ILLNESS 6 m fu Reason for Visit Asthma JADEN (obstructive sleep apnea) Pulmonary hypertension Allergies Essential hypertension Hyperlipemia Hypothyroidism Barretts esophagus Constipation Hx: UTI (urinary tract infection) Malaise and fatigue Essential hypertension Hypothyroidism Insomnia Chief Complaint E ORDER Allergies Consult E-ORDER e order GENERAL ILLNESS 6 m fu E ORDERS Reason for Visit Allergies Essential hypertension Hyperlipemia Hypothyroidism Barretts esophagus Constipation Hx: UTI (urinary tract infection) Malaise and fatigue Essential hypertension Hypothyroidism Insomnia Chief Complaint GENERAL ILLNESS 6 m fu E ORDERS E ORDER 2 WK FU 8 wk fu Reason for Visit Hx: UTI (urinary tra ct infection) Essential hypertension Hypothyroidism Insomnia Malaise and fatigue Choledocholithiasis Barretts esophagus Constipation Flu vaccine need Essential hypertension Hypothyroidism Insomnia Venous insufficiency of both lower extremities Malaise and fatigue Chief Complaint E ORDERS E ORDER 2 WK FU 8 wk fu 6 M FU Calculus of bile duct without cholangitis or tr Reason for Visit Choledocholithiasis Barretts esophagus Constipation Flu vaccine need Essential hypertension Hypothyroidism Insomnia Venous insufficiency of both lower extremities Malaise and fatigue JADEN (obstructive sleep apnea) Asthma Chief Complaint E ORDERS E ORDER 2 WK FU 8 wk fu 6 M FU Calculus of bile duct without cholangitis or tr E ORDERS Reason for Visit Choledocholithiasis Barretts esophagus Constipation Flu vaccine need Essential hypertension Hypothyroidism Insomnia Venous insufficiency of both lower extremities Malaise and fatigue JADEN (obstructive sleep apnea) Asthma Chief Complaint E ORDER 2 WK FU 8 wk fu 6 M FU Calculus of bile duct without cholangitis or tr E ORDERS FU 3 m fu Reason for Visit Choledocholithiasis Barretts esophagus Constipation Flu vaccine need Essential hypertension Hypothyroidism Insomnia Venous insufficiency of both lower extremities Malaise and fatigue JADEN (obstructive sleep apnea) Asthma Choledocholithiasis Barretts esophagus Constipation Pancreatic lesion Essential hypertension Hypothyroidism Insomnia Pancreatic lesion Malaise and fatigue Chief Complaint Admit Date 4 M FU August 29, 2024 8:4 9am POSSIBLE INCREASE IN MEDS September 23 8:25am follow up October 18, 2024 8:54am Reason for Visit Admit Date History of fall August 29, 2024 8:4 9am Anxiety August 29, 2024 8:4 9am Borderline type 2 diabetes mellitus Jose E h 2024 8:49am Essential hypertension August 29, 2024 8:49am Globus sensation August 29, 2024 8:4 9am Hot flashes August 29, 2024 8:4 9am Hypothyroidism August 29, 2024 8:4 9am Insomnia August 29, 2024 8:4 9am Anxiety and depression September 23, 2024 8:25am Insomnia September 23, 2024 8:2 5am Choledocholithiasis October 18, 2024 8:54am Barretts esophagus October 18, 2024 8:54am Constipation October 18, 2024 8:54am Pancreatic lesion October 18, 2024 8:54am Dysphagia October 26, 2024 1:04p m Barretts esophagus October 26, 2024 1:04p m Globus sensation October 26, 2024 1:04p m Additional Source Comments INFORMATION SOURCE (unrecogn ized section and content) DATE CREATED AUTHOR 02/21/2020 [facility] DATE CREATED AUTHOR AUTHOR'S ORGANIZ ATION 06/06/2024 [facility] DATE CREATED AUTHOR AUTHOR'S ORGANIZ ATION 11/10/2024 [place] [facility] y [facility] Goals (unrecognized section and content) Goals may be documented in a n alternate sectionGoals may be documented in an alternate sectionGoals may be documented in an alternate sectionGoals may be documented in an alternate sectionGoals may be documented in an alternate sectionGoals may be documented in an alternate sectionGoals may be documented in an alternate sectionGoals may be documented in an alternate sectionGoals may be documented in an alternate sectionGoals may be documented in an alternate sectionGoals may be documented in an alternate sectionGoals may be documented in an alternate sectionGoals may be documented in an alternate sectionGoals may be documented in an alternate section Care Teams (unrecognized sec tion and content) Team Status: Active Member Role Status Dates Dr. Blade Horne MD Family Provider Active Dr. Joseph Smyth MD Primary Care Provider Active Team Status: Inactive Member Role Status Dates Dr. Joseph Smyth MD Primary Care P rovider, Attending Provider, Referring Provider Active Team Status: Inactive Member Role Status Dates Dr. Joseph Smyth MD Primary Care Provider, Refer ring Provider Active Sai Smalls EMBROIDERY OPERATOR, EMBROIDERY OPERATOR-C Attending Provider Active Team Status: Active Member Role Status Dates Dr. Joseph Smyth MD Primary Care Provider Active Anjali Mazariegos EMBROIDERY OPERATOR, EMBROIDERY OPERATOR-C Attending Provider, Referring Pr ovider Active Team Status: Inactive Member Role Status Dates Dr. Joseph Smyth MD Primary Care Provider, Atten ding Provider Active Team Status: Inactive Member Role Status Dates Dr. Joseph Smyth MD Primary Care Provider Active Sai Samlls EMBROIDERY OPERATOR, EMBROIDERY OPERATOR-C Attending Provider, Referring Prov ider Active Team Status: Active Member Role Status Dates Dr. Joseph Smyth MD Primary Care P rovider, Attending Provider, Referring Provider Active Team Status: Inactive Member Role Status Dates Dr. Joseph Smyth MD Primary Care Provider, Refer ring Provider Active Dr. Myles Plummer MD Attending Provider Active Team Status: Inactive Member Role Status Dates Dr. Joseph Smyth MD Primary Care Provider, Refer ring Provider Active Dr. Brant Langley DO Attending Provider Active Team Status: Inactive Member Role Status Dates Dr. Joseph Smyth MD Primary Care Provider Active Anjali Mazariegos EMBROIDERY OPERATOR, EMBROIDERY OPERATOR-C Attending Provider, Referring Pr ovider Active Team Status: Active Member Role Status Dates Dr. Joseph Smyth MD Primary Care Provider Active Dr. Brant Langley DO Attending Provider, Referring Provider Active Team Status: Inactive Member Role Status Dates Dr. Joseph Smyth MD Primary Care Provider Active Dr. Brant Langley DO Attending Provider, Referring Provider Active Team Status: Inactive Member Role Status Dates Dr. Joseph Smyth MD Primary Care Provider Active Dr. Rafael Bradford MD Emergency Provider Active Team Status: Inactive Member Role Status Dates Dr. Joseph Smyth MD Primary Care Provider Active Dr. Rafael Bradford MD Attending Provider, Emergency Pro vider Active Team Status: Active Member Role Status Dates Dr. Joseph Smyth MD Primary Care Provider, Refer ring Provider Active Dr. Brant Langley DO Attending Provider, Other Prov ider Active Team Status: Inactive Member Role Status Dates Dr. Joseph Smyth MD Primary Care Provider Active Dr. Maico Goldsmith MD Attending Provider, Referring Provider Active Team Status: Inactive Member Role Status Dates Dr. Joseph Smyth MD Referring Provider Active Angi Saleh EMBROIDERY OPERATOR, EMBROIDERY OPERATOR-C Attending Provider Active Team Status: Inactive Member Role Status Dates Dr. Brant Langley DO Attending Provider, Referring Provider Active Dr. Joseph Smyth MD Primary Care Provider Active [employer] Pipe [employer] Supervisor Relationship Specialty Start Date End Date Joseph Smyth MD [address] [place] [address] Internal Medicine [facility] [place] [address] PCP - General Internal Medicine 08/19/23 [employer] Supervisor Relationship Specialty Start Date End Date Joseph Smyth MD [address] [place] [address] Internal Medicine [facility] [place] [address] PCP - General Internal Medicine 08/19/23 Brant Langley DO [address] [place] [address] [place] [address] Gastroenterology 08/19/23 [employer] Pipe [employer] Supervisor Relationship Specialty Start Date End Date Joseph Smyth MD [address] [place] [address] Internal Medicine [place], [place] [id number] PCP - General Internal Medicine 08/19/23 Brant Langley DO [address] [place] [id number], [place] [address] Gastroenterology 08/19/23 Team Status: Active Member Role Status Dates Dr. Joseph Smyth MD Primary Care Provider Active Team Status: Inactive Member Role Status Dates Dr. Joseph Smyth MD Primary Care Provider Active Start: August 29, 2024 End: August 29, 2024 Dr. Joseph Smyth MD Attending Provider Active Start: August 29, 2024 End: August 29, 2024 Dr. Joseph Smyth MD Referring Provider Active Start: August 29, 2024 End: August 29, 2024 Team Status: Inactive Member Role Status Dates Dr. Joseph Smyth MD Primary Care Provider Active Start: September 23, 2024 End: September 23, 2024 Dr. Joseph Smyth MD Attending Provider Active Start: September 23, 2024 End: September 23, 2024 Dr. Joseph Smyth MD Referring Provider Active Start: September 23, 2024 End: September 23, 2024 Team Status: Inactive Member Role Status Dates Dr. Joseph Smyth MD Primary Care Provider Active Start: October 18, 2024 End: October 18, 2024 Dr. Joseph Smyth MD Referring Provider Active Start: October 18, 2024 End: October 18, 2024 Dr. Brant Langley DO Attending Provider Active Start: October 18, 2024 End: October 18, 2024 Team Status: Inactive Member Role Status Dates Dr. Joseph Smyth MD Primary Care Provider Active Start: October 26, 2024 End: October 26, 2024 Dr. Joseph Smyth MD Referring Provider Active Start: October 26, 2024 End: October 26, 2024 Dr. Brant Langley DO Attending Provider Active Start: October 26, 2024 End: October 26, 2024 Team Status: Active Member Role Status Dates Dr. Joseph Smyth MD Primary Care Provider Active Start: October 26, 2024 Dr. Joseph Smyth MD Referring Provider Active Start: October 26, 2024 Dr. Brant Friend , DO Attending Provider Active Start: October 26, 2024 Dr. Brant Langley , DO Other Provider Active St art: October 26, 2024 Reason for Visit (unrecogniz ed section and content) Reason Comments Follow-up New Patient Visit FOR RECORDS PERTAINING TO PATIENTS WHO ARE OR HAVE BEEN ENROLLED IN A CHEMICAL DEPENDENCY/SUBSTANCEABUSE PROGRAM, SOME INFORMATION MAY BE OMITTED. This clinical summary was aggregated from multiple sources. Caution should be exercised in using it in the provision of clinical care. This summary normalizes information from multiple sources, and as a consequence, information in this document may materially change the coding, format and clinical context of patient data. In addition, data may be omitted in some cases. CLINICAL DECISIONS SHOULD BE BASED ON THE PRIMARY CLINICAL RECORDS. [employer] provides no warranty or guarantee of the accuracy or completeness of information in this document.
[2024-11-25 06:43] LABS: Absolute Lymphocyte Count 3.27 X10^3/uL (0.83-4.51); Basophil# 0.04 X10^3/uL; Basophil% 0.4 % (0-1); Eosinophil# 0.31 X10^3/uL; Eosinophils% 3.2 % (0-5); Hematocrit 38.8 % (37-47); Hemoglobin 13.1 g/dL (12.0-15.0); Lymphocyte # 3.27 X10^3/ul (0.83-4.51); Lymphocyte % 33.8 % (19-41); Mean Corp Hgb Conc 33.8 g/dL (32-36); Mean Corpuscular Hgb 30.3 pg (27.0-32.0); Mean Corpuscular Volume 89.8 fL (81-99); Mean Platelet Vol. 9.9 fl (6.2-12.0); Monocyte# 1.07 X10^3/uL; Monocyte% 11.1 % (0-10); NRBC Flagged by Analyzer 0 % (0-5); Neutrophil # 4.96 X10^3/uL (2.7-7.7); Neutrophil % 51.2 % (47-70); Platelet Count 292 K/mm3 (150-450); RBC Distribution Width CV 12.8 % (11.6-14.6); RBC Distribution Width SD 42.4 fl (35.1-43.9); Red Blood Count 4.32 M/mm3 (4.2-5.4); White Blood Count 9.7 K/mm3 (4.4-11.0)
[2024-11-25 13:09] LABS: Hemoglobin A1c 6.2 % (<=5.6)
[2024-11-25 14:10] LABS: Cholesterol 163 mg/dL (<=200); High Density Lipoprotein 53 mg/dL; Low Density Lipoprotein Calc. 89 mg/dL; Triglycerides 107 mg/dL; Very Low Density Lipoprotein 21 mg/dL (5-40); cholesterol:hdl ratio screen 3.09
[2024-11-25 14:23] LABS: ALB/GLOB Ratio 1.4 RATIO (0.9-2.4); AST(SGOT) 24 U/L (<=31); Alanine Aminotransfer ALT/SGPT 19 U/L (<=34); Albumin, Serum 4.1 g/dL (3.4-4.8); Alkaline Phosphatase 109 U/L (35-104); Anion Gap 12 (5-15); BUN 19 mg/dL (4-19); BUN/Creat Ratio 21.3 RATIO (10-20); Carbon Dioxide 22.8 mmol/L (21.0-32.0); Chloride 103 mmol/L (98-108); Creatinine, Serum 0.88 mg/dL (0.70-1.20); EST Glomerular Filtration Rate 71 (>60); Glucose 110 mg/dL (70-99); Potassium 3.8 mmol/L (3.3-5.1); Protein, Total 7.1 g/dL (5.9-8.4); Sodium Level 138 mmol/L (133-145); Total Bilirubin 0.33 mg/dL (0.00-1.30)
== END | disposition home or self-care (01) ==
LOC: LAB 06:17
PROVIDERS: PCP Internal Medicine; Referring Provider Internal Medicine; Visit Provider Internal Medicine
DX: I10 Essential (primary) hypertension (principal); E03.9 Hypothyroidism, unspecified; R73.03 Prediabetes
CPT/HCPCS: 36415; 80053; 80061; 83036; 84443; 85025

== ENCOUNTER 2024-12-28 07:56 | Emergency (ER) | payer MEDICARE, SELFPAY ==
[2024-12-28 07:56] VITALS: BP 192/76; PULSE 80; RESP 22; TEMP 36; O2SAT 94; BMI 43.9
[2024-12-28 08:25] VITALS: PULSE 86; RESP 17
[2024-12-28] MEDS: Albuterol 2.5 MG/3 ML VIAL.NEB. INHALATION ×3 (08:25→08:56)
[2024-12-28 09:08] VITALS: BP 154/77; PULSE 78; RESP 25; TEMP 36.5; O2SAT 92
[2024-12-28 09:10] LABS: Hematocrit 37.2 % (37-47); Hemoglobin 12.5 g/dL (12.0-15.0); Immature Granulocytes Count 0.010 X10^3/uL (0.0-0.0); Mean Corp Hgb Conc 33.6 g/dL (32-36); Mean Corpuscular Volume 89.0 fL (81-99); Mean Platelet Vol. 9.3 fl (6.2-12.0); NRBC Flagged by Analyzer 0 % (0-5); Platelet Count 291 K/mm3 (150-450); RBC Distribution Width CV 12.2 % (11.6-14.6); RBC Distribution Width SD 39.6 fl (35.1-43.9); Red Blood Count 4.18 M/mm3 (4.2-5.4); White Blood Count 7.7 K/mm3 (4.4-11.0)
--- NOTE | 2024-12-28 09:10 | RAD_ITS ---
PROCEDURE: CHEST PA AND LATERAL 12/28/2024 REASON FOR EXAM: COUGH X 1 MONTH TECHNIQUE: CHEST PA AND LATERAL COMPARISON: Prior study dated December 05, 2020. FINDINGS: Hardware: EKG electrodes are seen. Heart: The heart size is normal. Mediastinum: The mediastinal contour is unremarkable. Lungs: The lungs are clear. Bones: Degenerative changes are identified within the thoracic spine. Dextroconvex scoliosis. RAD/Chest PA and Lateral IMPRESSION: NO ACUTE FINDINGS. Reading [facility]
--- NOTE | 2024-12-28 09:10 | RAD_ITS ---
PROCEDURE: CHEST PA AND LATERAL 12/28/2024 REASON FOR EXAM: COUGH X 1 MONTH TECHNIQUE: CHEST PA AND LATERAL COMPARISON: Prior study dated December 05, 2020. FINDINGS: Hardware: EKG electrodes are seen. Heart: The heart size is normal. Mediastinum: The mediastinal contour is unremarkable. Lungs: The lungs are clear. Bones: Degenerative changes are identified within the thoracic spine. Dextroconvex scoliosis. RAD/Chest PA and Lateral IMPRESSION: NO ACUTE FINDINGS. Reading [facility]
[2024-12-28 09:12] VITALS: O2SAT 92
--- NOTE | 2024-12-28 09:21 | ED.VIS.DYS ---
HPI History of Present Illness Chief Complaint: Shortness of Breath Detail of Chief Complaint: Shortness of breath for approximately 4 weeks Informant: patient Onset/Context/Timing Onset: Weeks (Approximately 4) Context: sudden Timing: Continuous and Waxes and wanes Quality: Positive for Dyspnea on exertion and Wheezing; Negative for Orthopnea or PND Current Severity: Mild Maximum Severity: Moderate Worsened by: - (Humid air.) Relieved by: Nothing Associated Symptoms cough; Negative for rhinorrhea, post nasal drip, ear pain, fever, sore throat, subjective, chills, sweats, clear sputum, white sputum, yellow sputum or green sputum Chest Pain: Positive for None Narrative Narrative: Patient is a 69-year-old woman. She has history of asthma. She was seen by Hiwot Molina in pulmonary department and December 06. She was treated with burst of prednisone at that time and placed on azithromycin. The office note was reviewed. She was also seen by her PCP on November 28 for anxiety and depression. Prior pulmonary visit was April 2024. Patient states her illness started around 28 November. She was seen at the pulmonary office. She was treated with azithromycin and burst of prednisone. She does have an inhaler. She does not have a spacer with her inhaler. She denies fever, chills night sweats. She does have a cough which is nonproductive. She denies any chest pain or anginal equivalent symptoms. She denies leg pain or swelling. She denies discoloration of her legs. She denies orthopnea or PND. She denies history of GERD. PE Risk Factors: Negative for Cancer, OCP + Smoking + > 35, Prior DVT or PE, Recent immobilization, Recent surgery or Recent travel Prior similar symptoms: Yes Recent Illness/Hospitalization: Yes (Documented HPI narrative) [facility] Medical History Fatigue Shortness of breath on exertion Anxiety and depression History of fall Chronic back pain Borderline type 2 diabetes mellitus Flu vaccine need Hx: UTI (urinary tract infection) Malaise and fatigue Allergies Dysuria Blood glucose elevated Dry skin dermatitis Musculoskeletal back pain Venous insufficiency of both lower extremities Post-menopausal Marijuana use Injury of back Restless legs History of diverticulitis Gastric reflux Former smoker BiPAP (biphasic positive airway pressure) dependence Leg cramps History of edema History of stress test History of echocardiogram Cardiology follow-up encounter Health care maintenance Insomnia Asthma exacerbation Scoliosis Essential hypertension Family history of coronary artery disease Epigastric abdominal tenderness Sinusitis Chest congestion Routine health maintenance History of gallstones Back problem Arthritis Diverticulitis Barretts esophagus Depression (emotion) Morbid obesity with BMI of 40.0-44.9, adult Anxiety Hypothyroidism Respiratory insufficiency Hyperlipemia Home Medications ?Medication ?Instructions ?Recorded ?Last Taken ?Type calcium carbonate 1,000 mg PO DAILY 06/22/20 12/05/20 History cholecalciferol (vitamin D3) 25 2,000 unit PO DAILY 06/22/20 12/05/20 History mcg (1,000 unit) chewable tablet mecobalamin (vitamin B12) 5,000 5,000 mcg PO DAILY SUPPLEMENT 12/05/20 12/05/20 History mcg disintegrating tablet triamcinolone acetonide 0.1 % 1 applic topical BID PRN rash 08/29/22 Unknown Rx topical cream #453.6 grams montelukast 10 mg tablet 10 mg PO QHS PRN ALLERGIES 10/30/23 Unknown History (Singulair) compress.stocking,knee,reg,lrg #2 ea 11/02/23 Unknown Rx albuterol sulfate 90 mcg/actuation 2 - 3 puff inhalation Q6H PRN 05/10/24 Unknown Rx aerosol inhaler shortness of breath or wheezing #8.5 grams rosuvastatin 40 mg tablet (Crestor) 40 mg PO DAILY #90 tabs 07/28/24 Unknown Rx levothyroxine 175 mcg tablet 175 mcg PO DAILY #90 tabs 08/22/24 10/26/24 Rx omeprazole 40 mg capsule,delayed 40 mg PO DAILY #90 caps 08/22/24 10/26/24 Rx release ferrous sulfate 325 mg (65 mg 325 mg PO DAILY 10/24/24 Unknown History iron) tablet (FeroSul) trazodone 50 mg tablet See Rx Instructions PO QHS PRN 10/24/24 Unknown History Sleep fluoxetine 20 mg capsule 20 mg PO QDAY #90 caps 10/31/24 Unknown Rx fluoxetine 40 mg capsule 40 mg PO DAILY #90 caps 10/31/24 Unknown Rx budesonide-formoterol HFA 160 2 puff inhalation BID PRN ASTHMA 12/01/24 Unknown Rx mcg-4.5 mcg/actuation aerosol #1 ea inhaler (Symbicort) pramipexole 0.25 mg tablet 0.25 - 0.75 mg (1 - 3 x 0.25 mg) 12/02/24 Unknown Rx PO QHS RLS #90 tabs fluorometholone 0.1 % eye 1 drp ophthalmic (eye) BID 12/06/24 Unknown History drops,suspension zolpidem 5 mg tablet 5 mg PO QHS PRN insomnia #30 tabs 12/26/24 Unknown Rx inhalational spacing device #1 ea 12/28/24 Unknown Rx (Aerochamber MV spacer) prednisone 10 mg tablet 10 mg PO UD #33 tabs 12/28/24 Unknown Rx Allergy/AdvReac Type Severity Reaction Status Date / Time pravastatin (From Pravachol) Allergy Mild itching Verified 12/28/24 07:58 ketoprofen (From Orudis) Allergy Nausea/Vom/ Verified 12/28/24 07:58 Diarrhea hydrochlorothiazide (From AdvReac Intermediate Other Verified 12/28/24 07:58 Dyazide) triamterene (From Dyazide) AdvReac Intermediate Other Verified 12/28/24 07:58 Family History Sister CAD (coronary artery disease) Thyroid disorder Brother CAD (coronary artery disease) Heart disease Myocardial infarction Alcoholism Angina at rest Mother Diabetes Myocardial infarction Father Hypertension Heart disease Myocardial infarction Angina at rest Thyroid disorder Grandfather Alcoholism Surgical History H/O cataract removal with insertion of prosthetic lens History of thoracic surgery History of cholecystectomy (~1998) History of hysterectomy (~1998) History of colonoscopy History of esophagogastroduodenoscopy (EGD) (~2015) Social History household members: none Smoking Status: Former smoker quit date: 06/15/84 Tobacco: How many years used: 15 Electronic Cigarette Use: not used how long ago did patient quit smokin years second hand exposure: No alcohol intake: current alcohol intake frequency: holidays/special occasions only Alcohol type: wine substance use type: does not use what type of physical activity do you participate in: none ROS ROS ED Constitutional Constitutional ED: Denies chills, fever(s), sweats or weight loss Eyes Eyes: Denies blurry vision or change in vision ENT ENT ED: Denies ear pain, rhinorrhea or sore throat Cardiovascular Cardiovascular: Denies chest pain, orthopnea, palpitations, paroxysmal nocturnal dyspnea or racing heartbeat Respiratory/Chest Respiratory/Chest: Reports cough and dyspnea; Denies dyspnea on exertion, orthopnea, paroxysmal nocturnal dyspnea or sputum Gastrointestinal Gastrointestinal: Denies abdominal pain, diarrhea, nausea or vomiting Genitourinary Genitourinary ED: Denies dysuria, hematuria or urinary frequency Musculoskeletal Musculoskeletal: Denies arthralgias or myalgias Integumentary Denies rash Neurologic Neurologic: Denies headache(s) or paresthesias Hematologic/Lymphatic Hematologic/Lymphatic: Denies easy bleeding or easy bruising EXAM Physical Exam Const Vital Signs: 12/28/24 07:56 12/28/24 08:25 12/28/24 09:01 Temperature 96.8 F L Temperature Source Temporal Pulse Rate 80 86 Respiratory Rate 22 H 17 Respiratory Effort Respiratory Depth Respiratory Pattern Normal Blood Pressure 192/76 H Blood Pressure Mean 114 Pulse Ox 94 Oxygen Delivery Method Room Air Room Air 12/28/24 09:08 12/28/24 09:12 Temperature 97.7 F L Temperature Source Oral Pulse Rate 78 Respiratory Rate 25 H Respiratory Effort Short of Breath Respiratory Depth Normal Respiratory Pattern Normal Blood Pressure 154/77 H Blood Pressure Mean 102 Pulse Ox 92 Oxygen Delivery Method Room Air Room Air Positive well nourished and well developed Constitutional Narrative: BMI is 43.9. Patient's blood pressure is elevated. She is tachypneic. She is not febrile or hypoxic on room air. General Appearance ED: well developed; Negative for pallor HEENT Reports moist mucous membranes HEENT Narrative: Head is atraumatic normocephalic. Ears normal. Nares patent. Posterior pharynx is normal. Uvula is midline. There is no deviation with protrusion. Eyes PERRL and EOMs intact bilaterally General Eye ED: Negative for scleral icterus Neck no lymphadenopathy, supple, no meningeal signs and no JVD Resp normal respiratory effort and No clear to auscultation bilaterally Auscultation: wheezes expiratory wheezes, scattered wheezes and throughout Cardio regular rate, regular rhythm, S1 normal heart sound, S2 normal heart sound and no murmurs GI non-tender, non-distended and no masses Auscultation: normoactive bowel sounds Back/Spine no CVA tenderness Extremity normal to inspection Extremity Narrative: There is no asymmetry, swelling, discoloration, leg vein distention, palpable cords or tenderness along the distribution of the deep venous system. General Extremety ED: Negative for edema or tenderness General Extremity: Negative for edema Neuro oriented x3 and CN's II-XII intact bilaterally Sensorium / Orientation: alert Psych mental status grossly normal Skin no wounds and skin turgor normal General Skin Exam: Negative for jaundice or pallor MDM MDM MDM Narrative Medical decision making narrative: With symptoms for 1 month we will obtain x-ray determine if she has pneumonia. Since she has wheezing she was treated with albuterol x 3 and burst of prednisone. Blood count was obtained to assess for eosinophilia as well as white count. History & Record Review Additional record(s) reviewed:: Prior outpatient record (Documented HPI narrative) and Prior labs Lab Data Attestation: I reviewed the patient's lab results. Lab results narrative: CBC is remarkable for eosinophilia. Labs: Laboratory Results - last 24 hr 12/28/24 08:59 WBC 7.7 RBC 4.18 L Hgb 12.5 Hct 37.2 MCV 89.0 MCH 29.9 MCHC 33.6 RDW Std Deviation 39.6 RDW Coeff of Giancarlo 12.2 Plt Count 291 MPV 9.3 Immature Gran % (Auto) 0.100 Neut % (Auto) 44.6 L Lymph % (Auto) 39.8 Banks % (Auto) 8.3 Eos % (Auto) 6.6 H Baso % (Auto) 0.6 Absolute Neuts (auto) 3.5 Absolute Lymphs (auto) 3.08 Nucleated RBC % 0 Sodium 138 Potassium 3.5 Chloride 100 Carbon Dioxide 24.9 Anion Gap 13 BUN 15 Creatinine 0.93 Estim Creat Clear Calc 79.13 Est GFR (MDRD) Non-Af 67 BUN/Creatinine Ratio 16.1 Glucose 143 H Calcium 9.1 Radiography Chest X-Ray - ED: 2 View and Read by ED Physician (Limited in story volume. There are some minor chronic changes. Cardiac silhouette size normal. There is no effusion, infiltrate or pneumothorax. Mediastinum is normal. Osseous structures there are some chronic degenerative changes. This is intimately reviewed interpreted by me and) Diagnostic Testing: Clinical Impression(s) from Imaging Studies Chest X-Ray 12/28/24 09:10 IMPRESSION: NO ACUTE FINDINGS. Reading Location: [facility] Treatment and Re-Evaluation :: Patient was reexamined at 0938. She is no longer wheezing. Pulse ox is 99% on room air. She was informed of her results. Plan is tapering dose of prednisone. Prescription for spacer since she does not have 1. And she should follow-up with pulmonary especially since she has eosinophilia. Discharge Plan Triage Chief Complaint: Shortness of Breath ED Provider: Luis Alberto Estrella Dx/Rx/DC Orders Clinical Impression: Acute exacerbation of asthma with allergic rhinitis, Acute bronchospasm, Eosinophilia, Non-productive cough, Morbid obesity with BMI of 40.0-44.9, adult, Hypothyroidism, Family history of coronary artery disease Instructions: ED Asthma, Acute (Adult), ED MDI Use Spacer or None Prescriptions: New prednisone 10 mg tablet 10 mg PO UD Qty: 33 0RF Rx Instructions: Take 4 tablets daily for 3 days, then 3 daily for 3 days, then 2 daily for 3 days, then 1 a day for 3 days then 1 QOD for 3 doses. (DME) Aerochamber MV Spacer See Rx Instructions .Route Qty: 1 0RF Rx Instructions: As directed No Action montelukast [Singulair] 10 mg tablet 10 mg PO QHS PRN (Reason: ALLERGIES) triamcinolone acetonide 0.1 % cream 1 applic topical BID PRN (Reason: rash) Qty: 453.6 2RF albuterol sulfate 90 mcg/actuation HFA aerosol inhaler 2 - 3 puff inhalation Q6H PRN (Reason: shortness of breath or wheezing) Qty: 8.5 3RF fluorometholone 0.1 % drops,suspension 1 drp ophthalmic (eye) BID calcium carbonate 500 mg calcium (1,250 mg) tablet,chewable 1,000 mg PO DAILY cholecalciferol (vitamin D3) 25 mcg (1,000 unit) tablet,chewable 2,000 unit PO DAILY mecobalamin (vitamin B12) 5,000 mcg Tablet,Disintegrating 5,000 mcg PO DAILY ferrous sulfate [FeroSul] 325 mg (65 mg iron) tablet 325 mg PO DAILY Patient Comments: LAST DOSE 10/22/24 FOR EGD ON 10/26/24 trazodone 50 mg tablet See Rx Instructions PO QHS PRN (Reason: Sleep) Rx Instructions: 50-150 orally at bedtime PRN; (DME) compress.stocking,knee,reg,lrg Misc See Rx Instructions .MEDSUPPLY Qty: 2 1RF Rx Instructions: wear daily for venous insufficiency 20-30 mmHg rosuvastatin [Crestor] 40 mg tablet 40 mg PO DAILY Qty: 90 1RF levothyroxine 175 mcg tablet 175 mcg PO DAILY Qty: 90 1RF omeprazole 40 mg capsule,delayed release(DR/EC) 40 mg PO DAILY Qty: 90 1RF fluoxetine 20 mg capsule 20 mg PO QDAY Qty: 90 3RF Rx Instructions: Take with 40 mg capsule for a total of 60 mg daily. fluoxetine 40 mg capsule 40 mg PO DAILY Qty: 90 1RF Rx Instructions: Take with 20 mg capsule budesonide-formoterol [Symbicort] 160-4.5 mcg/actuation HFA aerosol inhaler 2 puff inhalation BID PRN (Reason: ASTHMA) Qty: 1 2RF Rx Instructions: administer with spacer, rinse mouth after each use pramipexole 0.25 mg tablet 0.25 - 0.75 mg PO QHS Qty: 90 1RF zolpidem 5 mg tablet 5 mg PO QHS PRN (Reason: insomnia) Qty: 30 0RF Primary Care Provider: Joseph Smyth Referrals: Joseph Smyth MD [Primary Care Provider] - 5-7 Days Activity Restrictions/Additional Instructions: Use spacer with your inhaler. Recommend 2 puffs every 2-4 hours while awake for the next 3 to 5 days then every 4-6 hours as needed. Print Language: Eritrean Disposition Disposition: Home, Self Care
[2024-12-28 09:33] LABS: Anion Gap 13 (5-15); BUN 15 mg/dL (4-19); BUN/Creat Ratio 16.1 RATIO (10-20); Calcium,Total 9.1 mg/dL (7.6-11.0); Carbon Dioxide 24.9 mmol/L (21.0-32.0); Chloride 100 mmol/L (98-108); Estimated Creatinine Clearance 79.13 ml/min (50-250); Glucose 143 mg/dL (70-99); Potassium 3.5 mmol/L (3.3-5.1)
[2024-12-28 09:59] VITALS: BP 151/58; PULSE 69; RESP 18; TEMP 36.6; O2SAT 97
== END 2024-12-28 10:04 | disposition home or self-care (01) ==
PROVIDERS: Emergency Provider Emergency Medicine; PCP Internal Medicine; Visit Provider Emergency Medicine
DX: J45.901 Unspecified asthma with (acute) exacerbation (principal); E66.01 Morbid (severe) obesity due to excess calories; Z68.41 Body mass index [BMI] 40.0-44.9, adult; D72.10 Eosinophilia, unspecified; Z87.891 Personal history of nicotine dependence; J30.9 Allergic rhinitis, unspecified; E03.9 Hypothyroidism, unspecified; R05.9 Cough, unspecified
CPT/HCPCS: 71046; 80048; 85025; 93005; 94640; 99284; A4216

== ENCOUNTER → 2025-01-23 | Outpatient (CLI) | payer MEDICARE, SELFPAY | END | disposition home or self-care (01) | LOC: LAB 08:40 | PROVIDERS: PCP Internal Medicine; Referring Provider Internal Medicine; Visit Provider Internal Medicine | DX: E03.9 Hypothyroidism, unspecified (principal) | CPT/HCPCS: 36415; 84443 ==

== ENCOUNTER → 2025-03-10 | Outpatient (CLI) | payer MEDICARE, SELFPAY ==
--- OUTSIDE RECORDS SUMMARY | 2025-03-10 07:26 | XMS RPT_ITS | CCD ---
Author Organization [facility] Care Team Providers Care Automation And Controls Manager Name Role Phone Dr. Joseph Smyth Primary Care Provider [phone] Dr. Joseph Smyth Referring Provider [phone] Dr. Myles Plummer Attending Provider Dr. Joseph Smyth Attending Provider [phone] Delfino WATER CHASER, WATER CHASER-C Angi Attending Provider Dr. Joseph Smyth Primary Care Provider [phone]) Dr. Joseph Smyth Referring Provider [phone] SALVADOR Ham Attending Provider Unavailab le Delfino WATER CHASER, WATER CHASER-C Angi Referring Provider Dr. Joseph Smyth Primary Care Provider [phone] Delfino WATER CHASER, WATER CHASER-C Angi Attending Provider Dr. Joseph Smyth Referring Provider [phone] Dr. Joseph Smyth Attending Provider [phone])2 Dr. Joseph Smyth Primary Care Provider [phone] Dr. Joseph Smyth Attending Provider [phone] Dr. Joseph Smyth Referring Provider [phone] Delfino WATER CHASER, WATER CHASER-C Angi Attending Provider [phone] Delfino WATER CHASER, WATER CHASER-C Angi Referring Provider Dr. Myels Plummer Attending Provider Dr. Myles Plummer Referring Provider Dr. Joseph Smyth Primary Care Provider [phone] Libra, Dr. Ruiz Attending Provider [phone] Libra, Dr. Ruiz Referring Provider [phone] SALVADOR Ham Attending Provider Dr. Joseph Judd Primary Care Provider 1(33 0) Libra, Dr. Ruiz Attending Provider [phone])2 Libra, Dr. Ruiz Referring Provider [phone])2 Delfino WATER CHASER, WATER CHASER-C Angi Attending Provider Delfino WATER CHASER, WATER CHASER-C Angi Referring Provider Dr. Myles Plummer Attending Provider Dr. Myles Plummer Referring Provider SALVADOR Ham Attending Provider Unavailab Ly, Dr. Ruiz Primary Care Provider 1(33 0) Libra, Dr. Ruiz Attending Provider [phone])2 Libra, Dr. Ruiz Referring Provider [phone])2 Slim WATER CHASER, WATER CHASER-C Sai Attending Provider [phone] Dr. Myles [...] Care Provider [phone] Libra, Dr. Ruiz Referring Provider [phone])2 Dr. Joseph Smyth Attending Provider [phone])2 Delfino SHEN, WATER CHASER-C Angi Attending Provider Dr. Joseph Smyth Primary Care Provider 1(33 0) Libra, Dr. Ruiz Referring Provider [phone])2 Korin, Dr. Guo Attending Provider [phone]) Libra MARTINI, Joseph Dover Primary Care Prov ider Brant Langley DO Unavailable [phone] POOLE, AUTUMN A Attending Unavailable OLEGHE, EFEWONGBE PACO Primary Care Unav ailable OLEGHE, EFALTA PACO Primary Care Unav ailable POOLE, AUTUMN A Referring Unavailable OLEGHE, EFEWONGBE PACO Primary Care Unav ailable POOLE, AUTUMN A Attending Unavailable OLEGHE, EFJOSÉ MIGUELONGBE PACO Primary Care Unav ailable Libra MARTINI, Dr. Ruiz Primary Care Provider Libra MARTINI, Dr. Ruiz Attending Provider [phone] 0) Libra MARTINI, Dr. Ruiz Referring Provider 1(33 0) Dr. Brant Langley DO Attending Provider Dr. Brant Langley DO Other Provider [phone]) Delfino SHEN-CAngi Attending Provider Libra MARTINI, Dr. Ruiz Primary Care Provider Libra MARTINI, Dr. Ruiz Attending Provider 1(33 0) Libra MARTINI, Dr. Ruiz Referring Provider 1(33 0) Sameer MARTINI, Dr. Sahu Emergency Provider Libra MARTINI, Dr. Ruiz Primary Care Provider Libra MARTINI, Dr. Ruiz Referring Provider 1(33 0) Libra MARTINI, Dr. Ruiz Attending Provider 1(33 0) Sameer MARTINI, Dr. Sahu Attending Provider Libra MARTINI, Dr. Ruiz Primary Care Provider Libra MARTINI, Dr. Ruiz Referring Provider 1(33 0) Oleghe, Efewongbe Primary Care Unavailable Oleghe, Efewongbe Referring Unavailable Oleghe, Efewongbe Attending Unavailable Oleghe, Efewongbe Primary Care Unavailable ANJALI KINNEY Referring Unavailable ANJALI KINNEY Attending Unavailable Oleghe, Efewongbe Attending Unavailable Oleghe, Efewongbe Referring Unavailable Oleghe, Efewongbe Primary Care Unavailable Friend, Brant Attending Unavailable Oleghe, Efewongbe Primary Care Unavailable Oleghe, Efewongbe Referring Unavailable Friend, Brant Attending Unavailable Friend, Brant Consulting Unavailable Oleghe, Efewongbe Primary Care Unavailable Oleghe, Efewongbe Referring Unavailable Oleghe, Efewongbe Attending Unavailable Oleghe, Efewongbe Referring Unavailable Oleghe, Efewongbe Primary Care Unavailable Oleghe, Efewongbe Primary Care Unavailable Oleghe, Efewongbe Referring Unavailable Angi Saleh NP Attending Unavailable Oleghe, Efewongbe Primary Care Unavailable Luis Alberto Estrella Attending Unavailable Oleghe, Efewongbe Attending Unavailable Oleghe, Efewongbe Primary Care Unavailable Oleghe, Efewongbe Primary Care Unavailable Oleghe, Efewongbe Referring Unavailable Oleghe, Efewongbe Attending Unavailable Katelynn Dye Attending Unavailable Oleghe, Efewongbe Referring Unavailable Oleghe, Efewongbe Primary Care Unavailable Friend, Brant Attending Unavailable Oleghe, Efewongbe Primary Care Unavailable Oleghe, Efewongbe Referring Unavailable Oleghe, Efewongbe Referring Unavailable Oleghe, Efewongbe Attending Unavailable Oleghe, Efewongbe Primary Care Unavailable FerulloKatelynn Referring Unavailable FerulloYanethKatelynn Attending Unavailable Oleghe, Efewongbe Primary Care Unavailable Oleghe, Efewongbe Attending Unavailable Oleghe, Efewongbe Referring Unavailable Oleghe, Efewongbe Primary Care Unavailable Oleghe, Efewongbe Attending Unavailable Oleghe, Efewongbe Primary Care Unavailable Oleghe, Efewongbe Referring Unavailable Oleghe OLS, Efewongbe Referring Unavailabl e Oleghe, Efewongbe Primary Care Unavailable Angi Saleh NP Attending Unavailable Oleghe, Efewongbe Attending Unavailable Oleghe, Efewongbe Primary Care Unavailable Oleghe, Efewongbe Referring Unavailable Oleghe, Efewongbe Primary Care Unavailable Oleghe, Efewongbe Referring Unavailable Oleghe, Efewongbe Attending Unavailable Brant Langley Attending Unavailable Oleghe, Efewongbe Primary Care Unavailable Oleghe, Efewongbe Referring Unavailable Allergies Allergy Classification Reported Allergen(s) Allergy Type Date of Onset Reaction(s) Facility (20 sources) Ketoprofen; Translations: [KETOPROFEN] Drug Allergy 09-22-19 22 Nausea/vomitin g [facility] (20 sources) Pravastatin; Translations: [PRAVASTATIN] Drug Allergy 09-22-19 22 Nausea/vomitin g [facility] (11 sources) hydroCHLOROthiazide Drug Allergy 04-30-20 23 Other [facility] Comment on above: FLU LIKE SYMPTOMS (11 sources) Triamterene Drug Allergy 04-30-20 23 Other [facility] Comment on above: FLU LIKE SYMPTOMS (4 sources) hydroCHLOROthiazide / Triamterene; Translations: [TRIAMTERENE-HYDROCHLO ROTHIAZID] Drug Allergy 08-19-19 24 Nausea/vomitin g [facility] (1 source) hydroCHLOROthiazide Drug Allergy 02-28-20 [facility] (1 source) Ketoprofen Drug Allergy 02-28-20 [facility] (1 source) Pravastatin Drug Allergy 02-28-20 [facility] (1 source) Triamterene Drug Allergy 02-28-20 [facility] Medications Current Medications Medication Drug Class(es) Dates Sig (Normalized) Sig (Original) Blood Pressure Test Kit-Large (20 sources) Start: 10-08-2021 Blood Pressure Test Kit-Large Active 0 .ROUTE .MEDSUPPLY October 08, 2021 10:34am Check BP twice a day Start: 10-08-2021 End: 04-30-2023 Blood Pressure Test Kit-Larg e Discontinued 0 .ROUTE .MEDSUPPLY October 07, 2021 11:00pm April 30, 2023 9:46am Check BP twice a day Start: 10-08-2021 Blood Pressure Test Kit-Large Active 0 .ROUTE .MEDSUPPLY October 07, 2021 11:00pm Check BP twice a day Start: 10-08-2021 Blood Pressure Test Kit-Large Active 0 .ROUTE .MEDSUPPLY October 08, 2021 12:00am Check BP twice a day Budesonide-Formoterol (20 sources) Corticosteroid, beta2-Adrenergic Agonist Start: 12-01-2024 Budesonide-Formoterol (Symbicort) 160-4.5 mcg/actuation HFA aerosol inhaler Active 2 NMA INHALATION TWICE A DAY as needed for ASTHMA 1 2 December 01, 2024 1:10pm administer with spacer, rinse mouth after each use Start: 12-01-2024 Budesonide-For moterol (Symbicort) 160-4.5 mcg/actuation HFA aerosol inhaler Active 2 NMA INHALATION TWICE A DAY as needed for ASTHMA December 01, 2024 1:10pm administer with spacer, rinse mouth after each use Start: 04-30-2023 End: 12-01-2024 Budesonide-Formoterol (Symbi ambar) 160-4.5 mcg/actuation HFA aerosol inhaler Discontinued 2 NMA INHALATION TWICE A DAY as needed for ASTHMA April 30, 2023 1:00am December 01, 2024 1:11pm administer with spacer, rinse mouth after each use Start: 04-30-2023 Budesonide-For moterol (Symbicort) 160-4.5 mcg/actuation HFA aerosol inhaler Active 2 NMA INHALATION TWICE A DAY as needed for ASTHMA April 30, 2023 1:00am administer with spacer, rinse mouth after each use Start: 04-30-2023 take 1 puff(s) by [facility] twice daily Budesonide-Formoterol (Symbicort) 160-4.5 mcg/actuation HFA aerosol inhaler Active 2 PUFF INHALATION TWICE A DAY April 30, 2023 12:00am administer with spacer, rinse mouth after each use Start: 06-26-2022 End: 04-30-2023 Budesonide-Formoterol (Symbi ambar) 160-4.5 mcg/actuation HFA aerosol inhaler Discontinued 2 NMA INHALATION TWICE A DAY 3 3 June 26, 2022 10:02am April 30, 2023 10:46am Asthma Moderate persistent asthma with (acute) exacerbation administer with spacer, rinse mouth after each [...] use Start: 06-26-2022 take 1 puff(s) by [facility] twice daily Budesonide-Formoterol (Symbicort) 160-4.5 mcg/actuation HFA aerosol inhaler Active 2 PUFF INHALATION TWICE A DAY 3 June 26, 2022 9:02am administer with spacer, rinse mouth after each use Start: 06-26-2022 take 1 puff(s) by [facility] twice daily Budesonide-Formoterol (Symbicort) 160-4.5 mcg/actuation HFA aerosol inhaler Active 2 PUFF INHALATION TWICE A DAY 3 June 26, 2022 10:02am administer with spacer, rinse mouth after each use Start: 06-24-2022 End: 06-26-2022 Budesonide-Formoterol (Symbi ambar) 160-4.5 mcg/actuation HFA aerosol inhaler Discontinued 2 NMA INHALATION TWICE A DAY 3 3 June 24, 2022 1:20pm June 26, 2022 10:02am Asthma Moderate persistent asthma with (acute) exacerbation administer with spacer, rinse mouth after each [...] 2 NMA INHALATION TWICE A DAY 3 3 April 15, 2022 11:14am June 24, 2022 1:23pm Asthma Moderate persistent asthma with (acute) exacerbation administer with spacer, rinse mouth after each [...] Start: 04-15-2022 take 1 puff(s) by mo ut twice daily Budesonide-Formoterol (Symbicort) 160-4.5 mcg/actuation HFA aerosol inhaler Active 2 PUFF INHALATION TWICE A DAY 3 April 15, 2022 10:14am administer with spacer, rinse mouth after each use Start: 09-11-2021 End: 04-15-2022 Budesonide-Formoterol (Symbi ambar) 160-4.5 mcg/actuation HFA aerosol inhaler Discontinued 2 NMA INHALATION TWICE A DAY 3 3 September 11, 2021 9:25am April 15, 2022 11:14am Asthma Moderate persistent asthma with (acute) exacerbation administer with spacer, rinse mouth after each [...] Start: 09-11-2021 take 1 puff(s) by mo [facility] twice [...] 2 NMA INHALATION TWICE A DAY 1 3 June 27, 2021 1:00am September 11, 2021 [...] 2 NMA INHALATION TWICE A DAY 10.2 1 May 22, 2021 1:00am June 27, 2021 [...] 2020 9:42am take 1 tablet by melia th once daily cholecalciferol (Vitamin D3) 5,000 Units tablet Take 1 tablet (5,000 Units) by mouth once daily. Active Compress.Stocking,Knee,Reg,L rg misc (7 sources) Start: 11-02-2023 Compress.Stocking,Knee,Reg,L rg misc Active 0 .MEDSUPPLY 2 1 November 02, 2023 12:00am Venous insufficiency (chronic) (peripheral) wear daily for venous insufficiency 20-30 mmHg Start: 11-02-2023 Compress.Stock ing,Knee,Reg,Lrg misc Active 0 .MEDSUPPLY 2 November 02, 2023 12:00am wear daily for venous insufficiency 20-30 mmHg DAILY MULTI-VITAMIN ORAL (3 sources) take 1 tablet by melia th once daily DAILY MULTI-VITAMIN ORAL Take 1 [...] 13, 2018 1:00am May 18, 2020 2:00pm fluorometholone 1 mg/ml ophthalmic suspension (5 sources) Corticosteroid Start: 12-06-2024 End: 02-27-2025 Fluorometholone 0.1 % drops,suspension Active 1 NMA OPHTHALMIC TWICE A DAY as needed February 27, 2025 7:35am Inhalational Spacing Device (Aerochamber Mv) spacer (3 sources) Start: 12-28-2024 Inhalational Spacing Device (Aerochamber Mv) spacer Active 0 .Route 1 December 28, 2024 12:00am As directed levothyroxine sodium 0.175 mg oral tablet (20 sources) l-Thyroxine Start: 10-03-2022 End: 01-31-2025 take 1 tablet by mouth once daily Levothyroxine 175 mcg tablet Active 175 ug PO DAILY 90 1 January 31, 2025 8:57am Start: 06-25-2020 End: 10-03-2022 take 1 tablet by mouth once daily Levothyroxine 150 mcg tablet Discontinued 150 ug PO DAILY 90 0 June 24, 2022 11:57am October 03, 2022 [...] ug PO DAILY December 05, 2020 12:00am SUPPLEMENT pramipexole dihydrochloride 0.25 mg oral tablet (20 sources) Nonergot Dopamine Agonist Start: 08-13-2018 End: 02-27-2025 take 0.25-0.75 mg by mouth at bedtime as needed Pramipexole 0.25 mg tablet Active 0.25 - 0.75 mg PO AT BEDTIME as needed for RLS February 27, 2025 7:36am predniSONE 10 mg oral tablet (20 sources) Start: 12-28-2024 take 4 tablets by mouth once daily, then take 3 tablets by mouth once daily, then take 2 tablets by mouth once daily, then take 1 tablet by mouth once daily, then take 1 tablet by mouth every other day Prednisone 10 mg tablet Active 10 mg PO DIRECTED 33 December 28, 2024 12:00am Take 4 tablets daily for 3 days, then 3 daily for 3 days, then 2 daily for 3 days, then 1 a day for 3 days then 1 QOD for 3 doses. Start: 12-06-2024 End: 12-11-2024 take 3 tablets by mouth once daily at mealtime Prednisone 20 mg tablet Discontinued 60 mg PO daily 15 5 0 December 06, 2024 12:00am December 10, 2024 12:00am December 11, 2024 12:05am administer with food or milk Start: 02-05-2022 End: 02-25-2022 take 3 tablets by mouth once daily at mealtime Prednisone 20 mg tablet Discontinued 60 mg PO daily 15 February 05, 2022 12:00am February 25, 2022 [...] MG tablet Discontinued 60 mg PO DAILY 15 0 May 05, 2021 1:00am May 15, 2021 9:46am Start: 05-05-2021 End: 05-15-2021 take 60 mg by mouth once daily Prednisone Discontinued 60 MG PO DAILY May 05, 2021 12:00am May 15, 2021 8:46am Start: 12-22-2020 End: 02-06-2021 take 1 tablet by mouth once daily Prednisone 50 mg tablet Discontinued 50 mg PO DAILY 5 December 22, 2020 12:00am February 06, 2021 9:52am Start: 11-26-2020 End: 12-05-2020 take 2 tablets by mouth once daily Prednisone 20 mg tablet Discontinued 40 mg PO DAILY 10 November 26, 2020 12:00am December 05, 2020 1:38pm Start: 11-26-2020 End: 12-05-2020 take 40 mg by mouth once daily Prednisone Discontinued 40 MG PO DAILY November 25, 2020 11:00pm December 05, 2020 12:38pm 60 actuat tiotropium 0.0025 mg/actuat inhalation spray (20 sources) Anticholinergic Start: 01-09-2025 take 2.5 ug by inhalation once daily Tiotropium [place] (Spiriva Respimat) 2.5 mcg/actuation mist Active 2 NMA INHALATION daily 1 January 09, 2025 12:00am administer at approximately the same time(s) each day Start: 11-06-2022 End: 11-28-2024 take 1.25 ug by inhalation once daily as needed Tiotropium [place] (Spiriva Respimat) 1.25 mcg/actuation mist Discontinued 2 NMA INHALATION DAILY as needed for SOB February 27, 2023 7:54am November 28, 2024 8:19am Start: 11-06-2022 End: 02-27-2023 take 1 puff(s) by inhalation once daily Tiotropium [place] (Spiriva Respimat) 1.25 mcg/actuation mist Active 2 [...] PO AT BEDTIME as needed for Sleep 30 June 11, 2021 5:16pm September 04, 2021 8:21am Start: 08-13-2018 End: 09-04-2021 take 50-150 mg by mouth at bedtime Trazodone Discontinued 50 - 150 MG PO AT BEDTIME June 11, 2021 4:16pm September 04, 2021 7:21am triamcinolone acetonide 1 mg/ml topical cream (20 sources) Corticosteroid Start: 08-29-2022 Triamcinolone Acetonide 0.1 % cream Active 1 NMA TOPICAL TWICE A DAY as needed for rash 453.6 2 August 29, 2022 12:00am zolpidem tartrate 5 mg oral tablet (20 sources) gamma-Aminobutyric Acid-ergic Agonist Start: 02-27-2023 End: 02-06-2025 take 1 tablet by mouth at bedtime as needed Zolpidem 5 mg tablet Active 5 mg PO AT BEDTIME as needed for insomnia 30 0 February 06, 2025 8:41pm Insomnia Insomnia, unspecified Completed/Discontinued Medications Medication Drug Class(es) Dates Sig (Normalized) Sig (Original) acetaminophen 325 mg / HYDROcodone bitartrate 2.5 mg oral tablet (20 sources) Opioid Agonist Start: 10-30-2023 End: 02-01-2024 Hydrocodone-Acetami nophen 2.5-325 mg tablet Discontinued 1 {tbl} PO THREE TIMES A DAY as needed 0 October 30, 2023 12:00am February 01, 2024 9:19am Start: 08-13-2018 End: 08-15-2018 Hydrocodone-Acetaminophen 1 TABLET tablet Discontinued 1 {tbl} PO EVERY 4 HOURS NEEDED as needed for Pain 10 2 0 August 13, 2018 1:00am August 14, 2018 1:00am August 15, 2018 1:08am Abdominal pain Unspecified abdominal pain Start: 08-13-2018 End: 08-15-2018 take 1 tablet by mouth every four hours as needed Hydrocodone-Acetaminophen Discontinued 1 TABLET PO EVERY 4 HOURS NEEDED 10 2 August 13, 2018 12:00am August 15, 2018 12:08am [id number] 200 actuat albuterol 0.09 mg/actuat metered dose [...] May 22, 2021 11:18am Start: 11-06-2020 End: 01-17-2025 Albuterol Sulfate 90 mcg/act uation HFA aerosol inhaler Discontinued 2 - 3 NMA INHALATION EVERY 6 HOURS as needed for shortness of breath or wheezing 8.5 October 22, 2022 1:01pm May 10, 2024 3:01pm Asthma Moderate persistent asthma with (acute) exacerbation Start: 11-06-2020 End: 10-22-2022 take 1 puff(s) by inhalation every six hours Albuterol Sulfate Discontinued 2 - 3 PUFF INHALATION EVERY 6 HOURS 8.June 27, 2021 1:41pm April 15, 2022 10:13am amoxicillin 875 mg / clavulanate 125 mg [...] Discontinued 1 TABLET PO TWICE A DAY 10 February 04, 2022 11:00pm February 25, 2022 1:31pm Start: 11-26-2020 End: 12-17-2020 Amoxicillin-Pot Clavulanate 875-125 mg tablet Discontinued 1 {tbl} PO TWICE A DAY 42 21 0 November 26, 2020 12:00am December 16, 2020 12:00am December 17, 2020 12:01am Start: 11-26-2020 End: 12-17-2020 take 1 tablet by mouth twice daily Amoxicillin-Pot Clavulanate Discontinued 1 TABLET PO TWICE A DAY 42 21 November 25, 2020 11:00pm December 16, 2020 11:01pm azithromycin 250 mg oral tablet (3 sources) Macrolide Antimicrobial Start: 12-08-2024 End: 12-13-2024 take 2-5 tablets by mouth once daily Azithromycin 250 mg tablet Discontinued 0 PO .COMPLEX 6 5 0 December 08, 2024 12:00am December 12, 2024 12:00am December 13, 2024 12:08am take 500 mg today (day 1), then 250 mg for 4 days (days 2-5) PO baclofen 10 mg oral tablet (20 sources) gamma-Aminobutyric Acid-ergic Agonist Start: 01-21-2022 End: 02-25-2022 take 1 tablet by mouth three times daily as needed for muscle spasms Baclofen 10 mg tablet Discontinued 10 mg PO THREE TIMES A DAY as needed for muscle spasm 90 1 January 21, 2022 12:00am February 25, 2022 2:31pm benzonatate 200 mg oral capsule (20 sources) Non-narcotic Antitussive Start: 05-16-2022 End: 08-28-2022 take 1 capsule by mouth three times daily as needed for cough Benzonatate 200 mg capsule Discontinued 200 mg PO THREE TIMES A DAY as needed for cough 30 May 16, 2022 1:00am August 28, 2022 3:37pm Blood Pressure Test Kit-Large kit (7 sources) Start: 10-08-2021 End: 04-30-2023 Blood Pressure Test Kit-Large kit Discontinued 0 .ROUTE .MEDSUPPLY 1 0 October 08, 2021 12:00am April 30, 2023 10:46am Hypertension Essential (primary) hypertension blood pressure Check BP twice a day Start: 10-08-2021 End: 04-30-2023 Blood Pressure Test Kit-Larg e kit Discontinued 0 .ROUTE .MEDSUPPLY October 08, 2021 12:00am April 30, 2023 10:46am Check BP twice a day cephalexin 500 mg oral capsule (20 sources) Cephalosporin Antibacterial Start: 10-01-2022 End: 10-03-2022 take 1 capsule by mouth every eight hours Cephalexin 500 mg capsule Discontinued 500 mg PO Q8H 21 October 01, 2022 12:00am October 03, 2022 11:06am Start: 04-03-2022 End: 05-16-2022 take 1 capsule by mouth three times daily Cephalexin 500 mg capsule Discontinued 500 mg PO THREE TIMES A DAY 30 10 April 03, 2022 12:00am May 16, 2022 9:49am cetirizine hydrochloride 10 mg oral capsule (20 sources) Histamine-1 Receptor Antagonist Start: 09-11-2021 End: 05-05-2023 take 1 capsule by mouth once daily Cetirizine 10 mg capsule Discontinued 10 mg PO DAILY 30 December 12, 2022 10:08am May 05, 2023 2:58pm ciprofloxacin 500 mg oral tablet (20 sources) Quinolone Antimicrobial Start: 10-03-2022 End: 11-26-2022 take 1 tablet by mouth twice daily Ciprofloxacin Hcl 500 mg tablet Discontinued 500 mg PO TWICE A DAY 10 October 03, 2022 12:00am November 26, 2022 11:28am Start: 02-09-2014 End: 02-12-2014 take 1 tablet by mouth twice daily Ciprofloxacin Hcl 500 MG tablet Discontinued 500 mg PO TWICE A DAY 10 February 09, 2014 12:00am February 12, 2014 [...] 13, 2018 1:00am May 18, 2020 2:06pm 2 ml dupilumab 150 mg/ml auto-injector (4 sources) Interleukin-4 Receptor alpha Antagonist Start: 01-09-2025 End: 02-27-2025 Dupilumab (Dupixent Pen) 300 mg/2 mL pen injector Discontinued 600 mg SC ONCE 4 January 09, 2025 12:00am February 27, 2025 7:35am Asthma Unspecified asthma, uncomplicated as a single dose Start: 01-09-2025 End: 02-27-2025 Dupilumab (Dupixent Pen) 300 mg/2 mL pen injector Discontinued 300 mg SC every 2 weeks 4 January 09, 2025 12:00am February 27, 2025 7:35am Asthma Unspecified asthma, uncomplicated fexofenadine hydrochloride 180 mg oral tablet (20 [...] Discontinued 150 mg PO Every 3 Days 2 November 26, 2020 12:00am December 05, 2020 5:38pm october repeat second dose 72 hrs after first dose if symptoms persist FLUoxetine 20 mg oral capsule (20 sources) Serotonin Reuptake Inhibitor Start: 10-21-2024 End: 10-31-2024 Fluoxetine 40 mg capsule Active 40 mg PO DAILY 90 October 31, 2024 1:15pm Take with 20 mg capsule Start: 10-21-2024 End: 02-27-2025 take 2 capsules by mouth once daily, then take 3 capsules by mouth once daily Fluoxetine 20 mg capsule Discontinued 20 mg PO daily 90 October 31, 2024 1:15pm February 27, 2025 7:35am Take with 40 mg capsule for a total of 60 mg daily. Start: 09-23-2024 End: 10-21-2024 take 10 mg by mouth once daily Fluoxetine 40 mg capsul e Discontinued 40 mg PO DAILY 90 1 September 23, 2024 8:55am October 21, 2024 1:18pm Take with 10 mg capsule Start: 09-23-2024 End: 10-21-2024 take 1 capsule by mouth twice daily in the morning Fluoxetine 10 mg capsule Discontinued 10 mg PO TWICE A DAY 60 3 September 23, 2024 12:00am October 21, 2024 1:18pm administer in the morning and at noon/midday Start: 07-08-2021 End: 09-23-2024 take 1 capsule by mouth once daily Fluoxetine 40 mg capsule Discontinued 40 mg PO DAILY 90 August 22, 2024 12:45pm September 23, 2024 8:56am Start: 12-05-2020 End: 07-08-2021 take 2 capsules by mouth once daily Fluoxetine 20 mg capsule Discontinued 40 mg PO DAILY 180 0 April 26, 2021 10:41am July 08, 2021 10:33am Start: 12-05-2020 End: 07-08-2021 take 40 mg by mouth once daily Fluoxetine Discontinued 40 MG PO DAILY 180 April 26, 2021 9:41am July 08, 2021 9:33am Start: 06-25-2020 End: 12-19-2020 take 1 capsule by mouth twice daily in the morning Fluoxetine 20 mg capsule Discontinued 20 mg PO TWICE A DAY 60 1 November 13, 2020 8:55am December 19, 2020 2:48pm TAKE 1 CAPSULE TWICE DAILY IN THE MORNING AND AT NOON/MIDDAY fluticasone propionate 0.05 mg/actuat metered dose nasal spray (20 sources) Corticosteroid Start: 06-27-2021 End: 05-05-2023 Fluticasone Propionate 50 mcg/actuation spray,suspension Discontinued 2 NMA INTRANASAL DAILY 3 June 24, 2022 1:23pm May 05, 2023 2:58pm Asthma Moderate persistent asthma with (acute) exacerbation Start: 06-27-2021 End: 05-05-2023 Fluticasone Propionate Disco ntinued 2 SPRAY INTRANASAL DAILY June 24, 2022 12:23pm May 05, 2023 1:58pm hydroCHLOROthiazide 25 mg oral tablet (20 sources) Thiazide Diuretic Start: 04-24-2023 End: 05-05-2023 take 1 tablet by mouth once daily Hydrochlorothiazide 25 mg tablet Discontinued 25 mg PO DAILY 90 2 April 24, 2023 1:00am May 05, 2023 2:59pm Start: 10-22-2021 End: 12-03-2021 take 1 tablet by mouth once daily in the morning Hydrochlorothiazide 12.5 mg tablet Discontinued 12.5 mg PO EVERY MORNING 60 0 October 22, 2021 12:00am December 03, 2021 9:18am hydroCHLOROthiazide 25 mg / triamterene 37.5 mg oral tablet (20 sources) Potassium-sparing Diuretic, Thiazide Diuretic Start: 12-03-2021 End: 04-24-2023 Triamterene-Hydrochlorothiaz id 37.5-25 mg tablet Discontinued 1 {tbl} PO EVERY MORNING 90 2 June 24, 2022 11:57am April 24, 2023 10:14am Start: 12-03-2021 End: 04-24-2023 take 1 tablet by mouth once daily in the morning Triamterene-Hydrochlorothiazid Discontin ued 1 TABLET PO EVERY MORNING 90 June 24, 2022 10:57am April 24, 2023 9:14am Ipratropium (20 sources) Anticholinergic Start: 11-06-2022 End: 05-05-2023 Ipratropium [place] Disconti nued 2 SPRAY INTRANASAL 2 to [...] each nostril Start: 01-14-2019 End: 05-18-2020 Ipratropium [place] 0.03 % s pray,non-aerosol Discontinued 2 NMA INTRANASAL TWICE A DAY as needed for Allergies January 14, 2019 12:00am May 18, 2020 2:00pm Start: 01-14-2019 End: 05-18-2020 Ipratropium [place] Disconti nued 2 SPRAY INTRANASAL TWICE A DAY January 13, 2019 11:00pm May 18, 2020 1:00pm Ipratropium [place] 21 mcg ( 0.03 %) spray,non-aerosol (7 sources) Start: 11-06-2022 End: 05-05-2023 Ipratropium [place] 21 mcg (0.03 %) spray,non-aerosol Discontinued 2 NMA INTRANASAL 2 to 3 times per day as needed for allergy symptoms 12 10November 06, 2022 12:00am May 05, 2023 2:59pm administer into each nostril Start: 11-06-2022 End: 05-05-2023 Ipratropium [place] 21 mcg ( 0.03 %) spray,non-aerosol Discontinued 2 NMA INTRANASAL 2 to 3 times per day as needed for allergy symptoms November 06, 2022 12:00am May 05, 2023 2:59pm administer into each nostril lubiprostone 0.008 mg oral capsule (15 sources) Chloride Channel Activator Start: 12-29-2022 End: 02-27-2023 take 1 capsule by mouth once daily Lubiprostone (Amitiza) 8 mcg capsule Discontinued 8 ug PO DAILY 30 December 29, 2022 12:00am February 27, 2023 [...] mg PO DAILY as needed for pain 90 0 October 04, 2021 7:48am December 03, 2021 9:03am Back pain Dorsalgia, unspecified metroNIDAZOLE 500 mg oral tablet (20 sources) [...] (150 mg x 2)-100 mg tablets,dose pack (10 sources) Start: 06-13-2023 End: 08-10-2023 Nirmatrelvir-Ritonav ir (Paxlovid) 300 mg (150 mg x 2)-100 mg tablets,dose pack Discontinued 0 PO .COMPLEX 30 0 June 13, 2023 1:00am August 10, 2023 11:00am take TWO 150 mg tablets of nirmatrelvir with ONE 100 mg tablet of ritonavir twice daily for 5 days PO Start: 06-13-2023 End: 08-10-2023 Nirmatrelvir-Ritonavir (Paxl ovid) 300 mg (150 mg x 2)-100 mg [...] capsule,delayed release(DR/EC) Discontinued 40 mg PO DAILY 90 August 22, 2024 12:45pm August 22, 2024 12:46pm Start: 08-28-2022 End: 08-28-2022 Omeprazole 40 mg capsule,del ayed release(DR/EC) Discontinued 20 mg PO DAILY 90 August 28, 2022 4:32pm August 28, 2022 4:36pm Start: 08-28-2022 End: 08-28-2022 take 20 mg by mouth once daily Omeprazole Discontinued 20 MG PO DAILY 90 August 28, 2022 3:32pm August 28, 2022 3:36pm Start: 10-25-2021 End: 02-25-2022 Omeprazole 40 mg capsule,del ayed release(DR/EC) Discontinued 20 mg PO DAILY October 25, 2021 8:54am February 25, 2022 2:32pm GERD Start: 10-25-2021 End: 02-25-2022 take 20 mg by mouth once daily Omeprazole Discontinued 20 MG PO DAILY October 25, 2021 7:54am February 25, 2022 1:32pm Start: 12-19-2020 End: 10-25-2021 take 1 capsule by mouth once daily Omeprazole 40 mg capsule,delayed release(DR/EC) Discontinued 40 mg PO DAILY 90 2 December 19, 2020 4:01pm October 25, 2021 8:55am GERD Start: 06-21-2009 End: 08-28-2022 take 1 capsule by mouth once daily Omeprazole 20 MG capsule Discontinued 20 mg PO DAILY February 09, 2014 12:00am December 19, 2020 4:01pm GERD oseltamivir 75 mg oral capsule (20 sources) Neuraminidase Inhibitor Start: 06-15-2013 End: 06-16-2013 take 1 capsule by mouth twice daily Oseltamivir 75 MG capsule Discontinued 75 mg PO TWICE A DAY 5 0 June 15, 2013 1:00am June 16, 2013 1:17pm phenazopyridine hydrochloride 200 mg oral tablet (20 sources) Start: 04-03-2022 End: 05-16-2022 take 1 tablet by mouth three times daily Phenazopyridine (Pyridium) 200 mg tablet Discontinued 200 mg PO THREE TIMES A DAY 6 2 0 April 03, 2022 12:00am May 16, 2022 9:50am potassium chloride 20 meq extended release oral tablet (20 sources) Start: 01-14-2022 End: 02-01-2024 take 1 tablet by mouth once daily Potassium Chloride 20 mEq tablet extended release Discontinued 20 meq PO DAILY 90 2 October 14, 2022 12:29pm February 01, 2024 9:19am On Hold: Ordered psyllium 3400 mg powder for oral suspension (20 sources) Start: 02-12-2014 End: 01-14-2019 take 1 dose by mouth once daily as needed Psyllium Husk 1 PACKET packet Discontinued 1 NMA PO DAILY as needed for Constipation August 13, 2018 11:30am January 14, 2019 7:36am Start: 02-12-2014 End: 01-14-2019 Psyllium Husk (Aspartame) Di scontinued 1 PACKET PO DAILY August 13, 2018 10:30am January 14, 2019 6:36am rosuvastatin calcium 40 mg oral tablet (20 sources) HMG-CoA Reductase Inhibitor Start: 06-25-2020 End: 01-02-2025 take 1 tablet by mouth once daily Rosuvastatin (Crestor) 40 mg tablet Discontinued 40 mg PO DAILY 90 1 July 28, 2024 3:02pm January 02, 2025 7:43am Start: 06-15-2013 End: 06-25-2020 take 4 tablets by mouth once daily Rosuvastatin 10 MG tablet Discontinued 40 mg PO DAILY June 15, 2013 1:00am June 25, 2020 11:05am Start: 06-15-2013 End: 06-25-2020 take 40 mg by mouth once daily Rosuvastatin Discontinu ed 40 MG PO DAILY June 15, 2013 12:00am June 25, 2020 10:05am Problems Active Problems Problem Classification Problem Date [...] WITH MEDS AND INHALERS Biliary tract disease (20 sources) Common bile duct calculus; Translations: [Calculus of bile duct without cholangitis or cholecystitis without obstruction] 04-23-2023 Episodic Diabetes mellitus without complication (20 sources) Hyperglycemia; Translations: [Hyperglycemia, unspecified] Onset: 5 08-29-2022 Episodic Diseases of white blood cells (3 sources) Eosinophil count raised; Translations: [Eosinophilia] 12-28-2024 Chronic Disorders of lipid metabolism (20 sources) Hyperlipidemia; [...] intractable; Translations: [Chronic tension-type headache, intractable] Onset: Chronic Headache; including migraine (7 sources) Headache; Translations: [Headache] 04-15-2024 Episodic Immunizations and screening for infectious disease (20 sources) Requires diphtheria, tetanus and pertussis vaccination; Translations: [Encounter for immunization] Onset: 09-21-2021 Episodic Malaise and fatigue (20 sources) Malaise; Translations: [Other malaise] 02-20-2023 Episodic Miscellaneous mental health disorders (1 source) Primary insomnia; Translations: [Primary insomnia] Onset: Chronic Mood disorders (20 sources) Depressive disorder; Translations: [Depression] 02-05-2021 Chronic Nausea and vomiting (13 sources) Nausea; Translations: [Nausea] 03-09-2023 Episodic Nonspecific [...] respiratory systems] 02-05-2021 Episodic Other circulatory disease (7 sources) Elevated blood pressure; Translations: [Elevated blood-pressure reading, [...] digestive system] 02-05-2021 Episodic Other gastrointestinal disorders (20 sources) Constipation; Translations: [Constipation, unspecified] 11-28-2022 Episodic Other gastrointestinal disorders (13 sources) Constipation, unspecified; Translations: [Constipation, unspecified] 11-28-2022 Episodic Other gastrointestinal disorders (13 sources) Diarrhea; Translations: [Diarrhea, unspecified] 03-09-2023 Episodic Other gastrointestinal disorders (13 sources) Dysphagia; Translations: [Dysphagia, unspecified] 04-15-2024 Episodic Other injuries and conditions due to external causes (11 sources) History of fall; Translations: [History of falling] 08-29-2024 Episodic Other lower respiratory disease (20 sources) Dyspnea; Translations: [Shortness of breath] 05-15-2021 Episodic Comment on above: WITH EXERTION Other lower respiratory disease (20 sources) Chronic cough; Translations: [Chronic cough] Episodic Other lower respiratory disease (20 sources) Respiratory insufficiency; Translations: [Other abnormalities of breathing] 02-05-2021 Episodic Other lower respiratory disease (13 sources) Shortness of breath; Translations: [Shortness of breath] Onset: Episodic Other lower respiratory disease (3 sources) Dry cough; Translations: [Nonproductive cough] 12-28-2024 Episodic Other lower respiratory disease (1 source) Cough; Translations: [Cough] Onset: Episodic Other nutritional; endocrine; and metabolic disorders [...] Chronic Other nutritional; endocrine; and metabolic disorders (15 sources) H/O: hypothyroidism; Translations: [Personal history of other endocrine, nutritional and metabolic disease] 02-20-2023 Episodic Other screening for suspected conditions (not mental disorders or infectious disease) (4 sources) Electrocardiogram abnormal; Translations: [Abnormal electrocardiogram [ECG] [EKG]] Onset: 02-27-2025 Episodic Other skin disorders (20 sources) Dry skin dermatitis; Translations: [Xerosis cutis] 08-28-2022 Episodic Other skin disorders (6 sources) Xerosis cutis; Translations: [Contact dermatitis and other eczema due to other specified agents] 08-28-2022 Episodic Other upper respiratory disease (17 sources) Feeling of lump in throat; Translations: [Globus sensation] 08-29-2024 Episodic Other upper respiratory disease (3 sources) Acute bronchospasm; Translations: [Acute bronchospasm] 12-28-2024 Episodic Other upper respiratory infections (20 sources) Sinusitis; Translations: [Chronic sinusitis, unspecified] 11-26-2020 Chronic Other upper respiratory infections (3 sources) Acute upper respiratory infection, unspecified; Translations: [Acute upper respiratory infections of unspecified site] Episodic Pancreatic disorders (not diabetes) (17 sources) Disorder of pancreas; Translations: [Disease of [...] edema; Translations: [Edema] Episodic Residual codes; unclassified (11 sources) Flushing; Translations: [Flushing] 05-02-2024 Episodic Thyroid disorders (20 sources) Hypothyroidism; Translations: [Hypothyroidism, unspecified] Onset: 5 Chronic Unclassified (2 sources) Foreign body sensation, throat; Translations: [Foreign body sensation, throat] Onset: 4 Unclassified (1 source) Unspecified lump in the left breast, overlapping quadrants; Translations: [Unspecified lump in the left breast, overlapping quadrants] Onset: Urinary tract infections (20 sources) Urinary tract infectious disease; Translations: [Urinary tract infection, site not specified] 04-11-2022 Episodic Past or Other Problems Problem Classification Problem Date Documented Da te Episodic/Chronic Neoplasms of unspecified nature or uncertain behavior (7 sources) Benign neoplasm of pancreas; Translations: [Neoplasm of unspecified behavior of digestive system] Onset: 08-21-2023 08-21-2023 Episodic Other circulatory disease (4 sources) Elevated blood-pressure reading, without diagnosis of hypertension; Translations: [Elevated blood pressure reading without diagnosis of hypertension] Onset: 04-15-2024 Episodic Other gastrointestinal disorders (2 sources) Dysphagia, unspecified; Translations: [Dysphagia, unspecified] Onset: 05-18-2024 Episodic Residual codes; unclassified (1 source) Flushing; Translations: [Flushing] Onset: 04-15-2024 Episodic Spondylosis; intervertebral disc disorders; other back problems (20 sources) Back problem; Translations: [Dorsopathy, unspecified] Onset: 04-15-2024 Episodic Results Test Name Value Interpretation Reference Range Facility Internal Medicine Office Vis kate 02-27-2025 Internal Medicine Office Visit [facility] [address] [place] [id number] OFFICE VISIT Date of Service: 02/27/25 MR#: [id number] Acct: [id number] Name: CULLEN CUEVA Rep #: [id number] : 1955 Provider: Dr. Joseph jane MD Age/Sex: 69/F Location: [facility] Status: Signed Intake Vital Signs 11/28/24 08:21 12/28/24 07:56 02/27/25 07:37 Height 5 ft 7 in 5 ft 7 in 5 ft 7 in Weight: 286 lb BMI 44.8 BP 134/78 H Blood Pressure Location Lt brachial Position Sitting Respiration 18 Pulse 96 Pulse Source Monitor Temp 98.6 F Temp Source Temporal Pulse Oximetry (%) 96 Oxygen Delivery Method room air Intake Visit Reasons: 3 M FU Chief Complaint: FU Chronic Conditions Environmental Science Program Director Required: No Is patient in pain?: No Allergies pravastatin (From Pravachol) Allergy (Mild, Verified 02/27/25 07:24) itching ketoprofen (From Orudis) Allergy (Verified 02/27/25 07:24) Nausea/Vom/Diarrhea hydrochlorothiazide (From Dyazide) Adverse Reaction (Intermediate, Verified 02/27/25 07:24) Other triamterene (From Dyazide) Adverse Reaction (Intermediate, Verified 02/27/25 07:24) Other Medications ???Medication ???Instructions ???Recorded ???Confirmed ???Type calcium carbonate 1,000 mg PO DAILY 06/22/20 5 History cholecalciferol (vitamin D3) 25 2,000 unit PO DAILY 06/22/2002/27 History mcg (1,000 unit) chewable tablet mecobalamin (vitamin B12) 5,000 5,000 mcg PO DAILY SUPPLEMENT 11/1402/27/25 History mcg disintegrating tablet triamcinolone acetonide 0.1 % 1 applic topical BID PRN rash 08/1302/27/25 Rx topical cream #453.6 grams montelukast 10 mg tablet 10 mg PO QHS PRN ALLERGIES 4 02/27/25 History (Singulair) compress.stocking,knee,r eg,lrg #2 ea 11/02/23 02/27/25 Rx omeprazole 40 mg capsule,delayed 40 mg PO DAILY #90 caps 08/22/24 0 02/27/25 Rx release ferrous sulfate 325 mg (65 mg 325 mg PO DAILY 10/24/24 02/27/25 History iron) tablet (FeroSul) trazodone 50 mg tablet See Rx Instructions PO QHS PRN 06/0802/27/25 History Sleep fluoxetine 40 mg capsule 40 mg PO DAILY #90 caps 10/31/24 0 02/27/25 Rx budesonide-formoterol HFA 160 2 puff inhalation BID PRN ASTHMA 0 12/01/24 02/27/25 Rx mcg-4.5 mcg/actuation aerosol #1 ea inhaler (Symbicort) inhalational spacing device #1 ea 12/28/24 02/27/25 Rx (Aerochamber MV spacer) prednisone 10 mg tablet 10 mg PO UD #33 tabs 12/28/2402/13 Rx rosuvastatin 40 mg tablet (Crestor) 40 mg PO DAILY #90 tabs 01/02/2 5 02/27/25 Rx tiotropium bromide 2.5 2 inh inhalation QDAY #1 ea 02/27/25 Rx mcg/actuation mist for inhalation (Spiriva Respimat) albuterol sulfate 90 mcg/actuation 2 - 3 puff inhalation Q6H PRN 02/27/25 Rx aerosol inhaler shortness of breath or wheezing #8.5 grams levothyroxine 175 mcg tablet 175 mcg PO DAILY #90 tabs 01/31/25 02/27/25 Rx fluorometholone 0.1 % eye 1 drp ophthalmic (eye) BID PRN 02/27/25 History drops,suspension pramipexole 0.25 mg tablet 0.25 - 0.75 mg PO QHS PRN RLS 02/13 11/06 History zolpidem 5 mg tablet 5 mg PO QHS PRN insomnia #30 tabs 02/27/25 02/27/25 Rx Have you fallen in the past year?: Yes (uncertain timing. ) Nurse's Note: Needs Ambien refilled. [facility] Medical History (Updated 02/27/25 @ 07:[address] Joseph Smyth MD) Abnormal EKG Fatigue Shortness of breath on exertion Anxiety and [...] 1998) History of colonoscopy History of esophagogastroduodenosco (more content not included)... Normal [facility] TSH DL <= 0.005 mIU/L QnOrde red By: Nataliejosé miguelulysses Smyth on 01-23-2025 TSH Qn 2.930 uIU/mL 0.300-4.200 [facility] Thyroid Stim Hormone (TSH)on 01-23-2025 TSH 2.930 uIU/mL Normal 0.300-4.200 [facility] Comment on above: Performed By: #### L 501.9520 ####[facility] [address] [place], [place], [id number] Absolute lymphocyte countOrd ered By: [facility] on 12-28-2024 Lymphocytes Auto (Unsp spec) [#/Vol] 3.08 10*3/uL 0.83-4.51 [facility] Absolute neutrophil countOrd ered By: [facility] on 12-28-2024 Neutrophils (Bld) [#/Vol] 3.5 10*3/uL 2.0-7.7 [facility] Anion gap in Serum or Plasma Ordered By: [facility] on 12-28-2024 Anion gap [Moles/Vol] 13 mmol/L - [facility] Automated lymphocyte count a s percentage of total leukocytesOrdered By: [facility] on 12-28-2024 Lymphocytes/100 WBC Auto (Unsp spec) 39.8 % [facility] BUN/creatinine ratioOrdered By: [facility] on 12-28-2024 Urea nitrogen/Creatinine [Mass ratio] 16.1 mg/mg - [facility] Basic Metabolic Profile (BMP )on 12-28-2024 BUN/CRE 16.1 RATIO Normal 04-03 [facility] Comment on above: Performed By: #### L 500.2500, L100.0100 ####[facility] [address] [place], [place], [id number] Calcium [Mass/Vol] 9.1 mg/dL Normal 7.6-11.0 [facility] Comment on above: Performed By: #### L 500.2500, L100.0100 ####[facility] [address] [place], [address] Chloride [Moles/Vol] 100 mmol/L Normal 98-108 [facility] Comment on above: Performed By: #### L 500.2500, L100.0100 ####[facility] [address] [place], [address] CO2 [Moles/Vol] 24.9 mmol/L Normal 21.0-32.0 [facility] Comment on above: Performed By: #### L 500.2500, L100.0100 ####[facility] [address] [place], [address] Creatinine [Mass/Vol] 0.93 mg/dL Normal 0.70-1.20 [facility] Comment on above: Performed By: #### L 500.2500, L100.0100 ####[facility] [address] [place], [address] ECRCL 79.13 ml/min Normal 50-250 [facility] Comment on above: Performed By: #### L 500.2500, L100.0100 ####[facility] [address] [place], [address] GAP 13 Normal 5-15 [facility] Comment on above: Performed By: #### L 500.2500, L100.0100 ####[facility] [address] [place], [address] GFR/1.73 sq M.predicted among non-blacks MDRD (S/P/Bld) [Vol rate/Area] 67 mL/min/{1.73_m2} Normal >60 [facility] Comment on above: Result Comment: mL/m in/1.73m2 CKD-EPI Creatinine Equation (2020) Performed By: #### L 500.2500, L100.0100 ####[facility] [address] [place], [address] Glucose [Mass/Vol] 143 mg/dL High 70-99 [facility] Comment on above: Performed By: #### L 500.2500, L100.0100 ####[facility] [address] [place], [address] Potassium [Moles/Vol] 3.5 mmol/L Normal 3.3-5.1 [facility] Comment on above: Performed By: #### L 500.2500, L100.0100 ####[facility] [address] [place], [address] Sodium [Moles/Vol] 138 mmol/L Normal 133-145 [facility] Comment on above: Performed By: #### L 500.2500, L100.0100 ####[facility] [address] [place], [address] Urea nitrogen [Mass/Vol] 15 mg/dL Normal 4-19 [facility] Comment on above: Performed By: #### L 500.2500, L100.0100 ####[facility] [address] [place], [address] Basophil percentageOrdered B y: Luis Alberto Estrella on 12-28-2024 Basophils/100 WBC (Bld) 0.6 % 0-1 [facility] CBC W/Diff, Automatedon 12-13 Absolute Lymph 3.08 X10 3/uL Normal 0.83-4.51 [facility] Comment on above: Performed By: #### L 500.2500, L100.0100 ####[facility] [address] [place], [address] Absolute Neut 3.5 X10 3/uL Normal 2.0-7.7 [facility] Comment on above: Performed By: #### L 500.2500, L100.0100 ####[facility] [address] [place], [address] Basophils/100 WBC (Bld) 0.6 % Normal 0-1 [facility] Comment on above: Performed By: #### L 500.2500, L100.0100 ####[facility] [address] [place], [address] Eosinophils/100 WBC (Bld) 6.6 % High 0-5 [facility] Comment on above: Performed By: #### L 500.2500, L100.0100 ####[facility] [address] [place], [address] Erythrocyte distribution width (RBC) [Ratio] 12.2 % Normal 11.6-14.6 [facility] Comment on above: Performed By: #### L 500.2500, L100.0100 ####[facility] [address] [place], [address] Hematocrit (Bld) [Volume fraction] 37.2 % Normal 37-47 [facility] Comment on above: Performed By: #### L 500.2500, L100.0100 ####[facility] [address] [place], [address] Hemoglobin (Bld) [Mass/Vol] 12.5 g/dL Normal 12.0-15.0 [facility] Comment on above: Performed By: #### L 500.2500, L100.0100 ####[facility] [address] [place], [address] IG% 0.100 Normal 0.0-0.9 [facility] Comment on above: Result Comment: IG% - Immature Granulocytes (promyelocytes, myelocytes and metamyelocytes) > 1% indicates that a LEFT SHIFT is Present. Performed By: #### L 500.2500, L100.0100 ####[facility] [address] [place], [address] Lymphocytes/100 WBC (Bld) 39.8 % Normal 19-41 [facility] Comment on above: Performed By: #### L 500.2500, L100.0100 ####[facility] [address] [place], [address] MCH (RBC) [Entitic mass] 29.9 pg Normal 27.0-32.0 [facility] Comment on above: Performed By: #### L 500.2500, L100.0100 ####[facility] [address] [place], [address] MCHC (RBC) [Mass/Vol] 33.6 g/dL Normal 32-36 [facility] Comment on above: Performed By: #### L 500.2500, L100.0100 ####[facility] [address] [place], [address] MCV (RBC) [Entitic vol] 89.0 fL Normal 81-99 [facility] Comment on above: Performed By: #### L 500.2500, L100.0100 ####[facility] [address] [place], [address] Monocytes/100 WBC (Bld) 8.3 % Normal 0-10 [facility] Comment on above: Performed By: #### L 500.2500, L100.0100 ####[facility] [address] [place], [address] Neutrophils/100 WBC (Bld) 44.6 % Low 47-70 [facility] Comment on above: Performed By: #### L 500.2500, L100.0100 ####[facility] [address] [place], [address] Nucleated RBC (Bld) [#/Vol] 0 10*3/uL Normal 0-5 [facility] Comment on above: Performed By: #### L 500.2500, L100.0100 ####[facility] [address] [place], [address] Platelet mean volume (Bld) [Entitic vol] 9.3 fL Normal 6.2-12.0 [facility] Comment on above: Performed By: #### L 500.2500, L100.0100 ####[facility] [address] [place], [address] Platelets (Bld) [#/Vol] 291 10*3/uL Normal 150-450 [facility] Comment on above: Performed By: #### L 500.2500, L100.0100 ####[facility] [address] [place], [address] RBC (Bld) [#/Vol] 4.18 10*6/uL Low 4.2-5.4 [facility] Comment on above: Performed By: #### L 500.2500, L100.0100 ####[facility] [address] [place], [address] RDW SD 39.6 fl Normal 35.1-43.9 [facility] Comment on above: Performed By: #### L 500.2500, L100.0100 ####[facility] [address] [place], [address] WBC (Bld) [#/Vol] 7.7 10*3/uL Normal 4.4-11.0 [facility] Comment on above: Performed By: #### L 500.2500, L100.0100 ####[facility] [address] [place], [address] Carbon dioxide, total [Moles /volume] in Central venous bloodOrdered By: Luis Alberto Estrella on 12-28-2024 CO2 [Moles/Vol] 24.9 mmol/L 21.0-32.0 [facility] Chest PA and Lateralon 12-28 Chest PA and Lateral [facility] [address] [place] [address] Chest PA and Lateral MR#: [id number] Acct: [id number] Name: CULLEN CUEVA Rep #: [id number] : 1955 F 69 From: Ad wan MD PCP: Dr. Josehp Smyth MD Status: PRE ER Study: Chest PA and Lateral Date of Exam: 12/28/24 Exam# [id number] Ordering Dr: Luis Alberto Estrella MD PROCEDURE: CHEST PA AND LATERAL 12/28/2024 REASON FOR EXAM: COUGH X 1 MONTH TECHNIQUE: CHEST PA AND LATERAL COMPARISON: Prior study dated December 05, 2020. FINDINGS: Hardware: EKG electrodes are seen. Heart: The heart size is normal. Mediastinum: The mediastinal contour is unremarkable. Lungs: The lungs are clear. Bones: Degenerative changes are identified within the thoracic spine. Dextroconvex scoliosis. RAD/Chest PA and Lateral IMPRESSION: NO ACUTE FINDINGS. Reading Location: [place] [address] CC: Dr. Joseph Smyth MD; Dr. Luis Alberto Estrella MD Superintendent Logging: Signed Normal [facility] Chloride assayOrdered By: Adin Estrella on 12-28-2024 Chloride [Moles/Vol] 100 mmol/L 98-108 [facility] Emergency Department Summary on 12-28-2024 Emergency Department Summary [facility] Medical Records Department [address] [place] [address] Emergency Department Summary 12/28/24 MR#: [id number] Acct: [id number] Name: CULLEN CUEVA Rep #: [id number] : 1955 69 From: Luis Alberto Estrella MD PCP: Dr. Joseph Smyth MD Status:REG ER Location: ED HPI History of Present Illness Chief Complaint: Shortness of Breath Detail of Chief Complaint: Shortness of breath for approximately 4 weeks Informant: patient Onset/Context/Timing Onset: Weeks (Approximately 4) Context: sudden Timing: Continuous and Waxes and wanes Quality: Positive for Dyspnea on exertion and Wheezing; Negative for Orthopnea or PND Current Severity: Mild Maximum Severity: Moderate Worsened by: - (Humid air.) Relieved by: Nothing Associated Symptoms cough; Negative for rhinorrhea, post nasal drip, ear pain, fever, sore throat, subjective, chills, sweats, clear sputum, white sputum, yellow sputum or green sputum Chest Pain: Positive for None Narrative Narrative: Patient is a 69-year-old woman. She has history of asthma. She was seen by Hiwot Molina in pulmonary department and December 06. She was treated with burst of prednisone at that time and placed on azithromycin. The office note was reviewed. She was also seen by her PCP on November 28 for anxiety and depression. Prior pulmonary visit was April 2024. Patient states her illness started around 28 November. She was seen at the pulmonary office. She was treated with azithromycin and burst of prednisone. She does have an inhaler. She does not have a spacer with her inhaler. She denies fever, chills night sweats. She does have a cough which is nonproductive. She denies any chest pain or anginal equivalent symptoms. She denies leg pain or swelling. She denies discoloration of her legs. She denies orthopnea or PND. She denies history of GERD. PE Risk Factors: Negative for Cancer, OCP + Smoking + > 35, Prior DVT or PE, Recent immobilization, Recent surgery or Recent travel Prior similar symptoms: Yes Recent Illness/Hospitalization: Yes (Documented HPI narrative) [facility] Medical History Fatigue Shortness of breath on exertion Anxiety and [...] 01/04 Unknown Rx topical cream #453.6 grams montelukast 10 mg tablet 10 mg PO QHS PRN ALLERGIES 4 Unknown History (Singulair) compress.stocking,knee,r eg,lrg #2 ea 11/02/23 Unknown Rx albuterol sulfate 90 mcg/actuation 2 - 3 puff inhalation Q6H PRN Unknown Rx aerosol inhaler shortness of breath or wheezing #8.5 grams rosuvastatin 40 mg tablet (Crestor) 40 mg PO DAILY #90 tabs 5 Unknown Rx levothyroxine 175 mcg tablet 175 mcg PO DAILY #90 tabs 08/22/24 10/26/24 Rx omeprazole 40 mg capsule,delayed 40 mg PO DAILY #90 caps 08/22/24 0 10/26/24 Rx release ferrous sulfate 325 mg (65 mg 325 mg PO DAILY 10/24/24 Unknown H istory iron) tablet (FeroSul) trazodone 50 mg tablet See Rx Instructions PO QHS PRN 06/08 Unknown History Sleep fluoxetine 20 mg capsule 20 mg PO QDAY #90 caps 10/31/24 Un known Rx fluoxetine 40 mg capsule 40 mg PO DAILY #90 caps 10/31/24 U nknown Rx budesonide-formoterol HFA 160 2 puff inhalation BID PRN ASTHMA 0 12/01/24 Unknown Rx mcg-4.5 mcg/actuation aerosol #1 ea inhaler (more content not included)... Normal [facility] Eosinophil percentageOrdered By: Luis Alberto Estrella on 12-28-2024 Eosinophils/100 WBC (Bld) 6.6 % High 0-5 [facility] Erythrocyte distribution wid th ratioOrdered By: Luis Alberto Estrella on 12-28-2024 Erythrocyte distribution width (RBC) [Ratio] 12.2 % 11.6-14.6 [facility] Erythrocyte distribution wid th standard deviationOrdered By: Luis Albertotrisha Estrella on 12-28-2024 Erythrocyte distribution width (RBC) [Ratio] 39.6 fl 35.1-43.9 [facility] Glomerular filtration rate ( GFR) estimation/1.73 sq m using serum, plasma, or whole bOrdered By: Luis Albertotrisha Estrella on 12-28-2024 GFR/1.73 sq M.predicted among non-blacks MDRD (S/P/Bld) [Vol rate/Area] 67 mL/min/{1.73_m2} >60 [facility] Comment on above: mL/min/1.73m2 CKD-EP I Creatinine Equation (2020) Hematocrit Auto (Bld) [Volum e fraction]Ordered By: Luis Albertotrisha Estrella on 12-28-2024 Hematocrit (Bld) [Volume fraction] 37.2 % 37-47 [facility] Hemoglobin measurementOrdere d By: Luis Albertotrisha Estrella on 12-28-2024 Hemoglobin (Bld) [Mass/Vol] 12.5 g/dL 12.0-15.0 [facility] Immature granulocytes/100 WB C Auto (Bld)Ordered By: Luis Alberto Estrella on 12-28-2024 Immature granulocytes/100 WBC (Bld) 0.100 % 0.0-0.9 [facility] Comment on above: IG% - Immature Granu locytes (promyelocytes, myelocytes and metamyelocytes) > 1% indicates that a LEFT SHIFT is Present. MCV (mean corpuscular volume ) determinationOrdered By: Luis Alberto Estrella on 12-28-2024 MCV (RBC) [Entitic vol] 89.0 fL 81-99 [facility] Mean corpuscular hemoglobin (MCH) determinationOrdered By: Luis Albertotrisha Estrella on 12-28-2024 MCH (RBC) [Entitic mass] 29.9 pg 27.0-32.0 [facility] Mean corpuscular hemoglobin concentration (MCHC) determinationOrdered By: Luis Alberto Estrella on 12-28-2024 MCHC (RBC) [Mass/Vol] 33.6 g/dL 32-36 [facility] Mean platelet volume determi nationOrdered By: Luis Alberto Estrella on 12-28-2024 Platelet mean volume (Bld) [Entitic vol] 9.3 fL 6.2-12.0 [facility] Monocyte percentageOrdered B y: Luis Alberto Estrella on 12-28-2024 Monocytes/100 WBC (Bld) 8.3 % 0-10 [facility] Neutrophil percentageOrdered By: Luis Alberto Estrella on 12-28-2024 Neutrophils/100 WBC (Bld) 44.6 % Low 47-70 [facility] Nucleated red blood cell per centageOrdered By: Luis Alberto Estrella on 12-28-2024 Nucleated RBC/100 WBC (Bld) [Ratio] 0 % 0-5 [facility] Platelet countOrdered By: Adin Estrella on 12-28-2024 Platelets (Bld) [#/Vol] 291 10*3/uL 150-450 [facility] Potassium measurement (mass/ volume)Ordered By: Luis Alberto Estrella on 12-28-2024 Potassium (Unsp spec) [Mass/Vol] 3.5 mmol/L 3.3-5.1 [facility] RBC Auto (Bld) [#/Vol]Ordere d By: Luis Alberto Estrella on 12-28-2024 RBC (Bld) [#/Vol] 4.18 10*6/uL Low 4.2-5.4 [facility] Serum creatinine measurement (mass/volume)Ordered By: Luis Alberto Estrella on 12-28-2024 Creatinine [Mass/Vol] 0.93 mg/dL 0.70-1.20 [facility] Serum glucose measurement (m ass/volume)Ordered By: Luis Alberto Estrella on 12-28-2024 Glucose [Mass/Vol] 143 mg/dL High 70-99 [facility] Serum or plasma calcium david urement (mass/volume)Ordered By: Luis Alberto Estrella on 12-28-2024 Calcium [Mass/Vol] 9.1 mg/dL 7.6-11.0 [facility] Serum or plasma urea nitroge n measurement (mass/volume)Ordered By: Luis Alberto Estrella on 12-28-2024 Urea nitrogen [Mass/Vol] 15 mg/dL 4-19 [facility] Sodium levelOrdered By: Luis Alberto Estrella on 12-28-2024 Sodium [Moles/Vol] 138 mmol/L 133-145 [facility] White blood cell (WBC) count Ordered By: Luis Alberto Estrella on 12-28-2024 WBC (Bld) [#/Vol] 7.7 10*3/uL 4.4-11.0 [facility] Pulmonary Visit Reporton Pulmonary Visit Report [facility] [place] [address] [place] [address] OFFICE VISIT Date of Service: 12/06/24 MR#: [id number] Acct: [id number] Name: CULLEN CUEVA Rep #: [id number] : 1955 Provider: HILARY Saleh Age/Sex: 69/F Location: [facility] Status: Signed Assessment and Plan Assessment and Plan (1) Asthma exacerbation: Status: Acute Qualifiers: Asthma severity: mild Asthma persistence: intermittent Qualified Code(s): J45.21 - Mild intermittent asthma with (acute) exacerbation Comment: CONTROLLED WITH MEDS AND INHALERS Plan: Deteriorated. NIOX procedure performed in the office today returned significantly elevated, indicating that the patient is in an acute exacerbation of asthma requiring a prednisone burst. Continue Symbicort twice daily at this time. If symptoms do not show improvement after 48 hours on prednisone contact the office. Escalating medication, ordering a nebulizer and albuterol solution through a [employer] for the patient to utilize. Keep previously scheduled routine follow-up. Contact the office if symptoms do not improve or if they get worse. (2) Chronic cough: Status: Chronic Plan: Deteriorated, likely secondary to this exacerbation. I do not believe that she requires antibiotics at this time. However, if the patient starts to expectorate purulent sputum after she begins the prednisone, she is to call the office with an update. At that time I will likely add an antibiotic. Orders: Orders NIOX Today R05 - Cough Medications: New prednisone administer with food or milk 60 mg (3 x 20 mg) PO QDAY 5 days 15 tabs 0RF Plan Details Additional Comments: This note was generated with [email or web address] dictation software. It may contain incorrect words, spelling, and punctuation that were not noted in checking the note before signing. HPI Acute sick Chief Complaint: wheeze HPI Comments Details: This patient presents to the office today for an acute visit. She contacted our office earlier this morning reporting that she was having a "asthma flare" that started on November 27, 2024. She states that she noticed increase in shortness of breath, wheezing and cough. She began to utilize Symbicort twice daily on November 28, 2024. Initially, albuterol seem to be helping. However, recently she has been using it 4 times daily and is not feeling relief. She has noticed an increase in shortness of breath, a cough that is sometimes productive and sometimes she feels as though she is "unable to cough it out" and wheezing. She has been using [id number]-vcywsqs Janay-D. For the last week she has been compliant with Symbicort 2 puffs twice daily. She does report rinsing her mouth out after each use. She denies any medication side effect such sore throat or thrush. She has been using albuterol rescue inhaler 4 times daily. She does not currently have a nebulizer machine. She has experience with a nebulizer when seen in the emergency department, and has previously had good results from it. She has a persistent dry cough. She denies any chest tightness or chest pain. She has noticed wheezing. Intake Vital Signs 11/28/24 08:21 12/06/24 09:06 Height 5 ft 7 in 5 ft 7 in Weight: 300 lb 297 lb BMI 47.0 46.5 BP 124/84 H 159/73 H Blood Pressure Location Lt brachial Lt radial Position Sitting Sitting Respiration 18 18 Pulse 68 97 Pulse Source Monitor Monitor Temp 98.2 F 97.3 F L Temperature Source Temporal Artery Pulse Oximetry (%) 98 95 Oxygen Delivery Method room air room air Intake Visit Reasons: Acute sick Chief Complaint: Follow-up chronic conditions Environmental Science Program Director Required: No DME Vendor: [employer] - unsure Accompanied by: Self Allergies pravastatin (From Pravachol) Allergy (Mild, Verified 12/06/24 09:49) itching ketoprofen (From Orudis) Allergy (Verified 12/06/24 09:49) Nausea/Vom/Diarrhea hydrochlorothiazide (From Dyazide) Adverse Reaction (Intermediate, Verified 12/06/24 09:49) Other triamterene (From Dyazide) Adverse Reaction (Intermediate, Verified 12/06/24 09:49) Other Medications ???Medication ???Instructions ???Recorded ???Confirmed ???Type calcium carbonate 1,000 mg PO DAILY 06/22/20 5 History cholecalciferol (vitamin D3) 25 2,000 unit PO DAILY 06/22/2012/06 History mcg (1,000 unit) chewable tablet mecobalamin (vitamin B12) 5,000 5,000 mcg PO DAILY SUPPLEMENT 11/1412/06/24 History mcg disintegrating tablet triamcinolone acetonide 0.1 % 1 applic topical BID PRN rash 08/1312/06/24 Rx topical cream #453.6 grams montelukast 10 mg tablet 10 mg PO QHS PRN ALLERGIES 4 12/06/24 History (Singulair) compress.stocking,knee,r eg,lrg #2 ea 11/02/23 11/28/24 Rx albuterol sulfate 90 mcg/actuation 2 - 3 p (more content not included)... Normal [facility] Internal Medicine Office Vis [facility] 11-28-2024 Internal Medicine Office Visit [facility] [address] [place] [id number] OFFICE VISIT Date of Service: 11/28/24 MR#: [id number] Acct: [id number] Name: CULLEN CUEVA Rep #: [id number] : 1955 Provider: Dr. Joseph jane MD Age/Sex: 69/F Location: [facility] Status: Signed Intake Vital Signs 08/29/24 08:59 10/26/24 13:44 11/28/24 08:21 Height 5 ft 7 in 5 ft 7 in 5 ft 7 in Weight: 300 lb BMI 47.0 BP 124/84 H Blood Pressure Location Lt brachial Position Sitting Respiration 18 Pulse 68 Pulse Source Monitor Temp 98.2 F Temp Source Temporal Pulse Oximetry (%) 98 Oxygen Delivery Method room air Intake Visit Reasons: 3 m fu Chief Complaint: Follow-up chronic conditions Environmental Science Program Director Required: No Is patient in pain?: No Allergies pravastatin (From Pravachol) Allergy (Mild, Verified 11/28/24 08:12) itching ketoprofen (From Orudis) Allergy (Verified 11/28/24 08:12) Nausea/Vom/Diarrhea hydrochlorothiazide (From Dyazide) Adverse Reaction (Intermediate, Verified 11/28/24 08:12) Other triamterene (From Dyazide) Adverse Reaction (Intermediate, Verified 11/28/24 08:12) Other Medications ???Medication ???Instructions ???Recorded ???Confirmed ???Type calcium carbonate 1,000 mg PO DAILY 06/22/20 5 History cholecalciferol (vitamin D3) 25 2,000 unit PO DAILY 06/22/2011/28 History mcg (1,000 unit) chewable tablet mecobalamin (vitamin B12) 5,000 5,000 mcg PO DAILY SUPPLEMENT 11/1411/28/24 History mcg disintegrating tablet triamcinolone acetonide 0.1 % 1 applic topical BID PRN rash 08/1311/28/24 Rx topical cream #453.6 grams budesonide-formoterol HFA 160 2 puff inhalation BID PRN ASTHMA 1 06/30/22 11/28/24 History mcg-4.5 mcg/actuation aerosol inhaler (Symbicort) montelukast 10 mg tablet 10 mg PO QHS PRN ALLERGIES 4 11/28/24 History (Singulair) compress.stocking,knee,r eg,lrg #2 ea 11/02/23 11/28/24 Rx albuterol sulfate 90 mcg/actuation 2 - 3 puff inhalation Q6H PRN 11/28/24 Rx aerosol inhaler shortness of breath or wheezing #8.5 grams rosuvastatin 40 mg tablet (Crestor) 40 mg PO DAILY #90 tabs 5 11/28/24 Rx levothyroxine 175 mcg tablet 175 mcg PO DAILY #90 tabs 08/22/24 11/28/24 Rx omeprazole 40 mg capsule,delayed 40 mg PO DAILY #90 caps 08/22/24 0 11/28/24 Rx release pramipexole 0.25 mg tablet 0.25 - 0.75 mg (1 - 3 x 0.25 mg) 0 10/10/24 11/28/24 Rx PO QHS RLS #90 tabs ferrous sulfate 325 mg (65 mg 325 mg PO DAILY 10/24/24 11/28/24 History iron) tablet (FeroSul) trazodone 50 mg tablet See Rx Instructions PO QHS PRN 06/0811/28/24 History Sleep fluoxetine 20 mg capsule 20 mg PO QDAY #90 caps 10/31/24 Rx fluoxetine 40 mg capsule 40 mg PO DAILY #90 caps 10/31/24 0 11/28/24 Rx zolpidem 5 mg tablet 5 mg PO QHS PRN insomnia #30 tabs 11/28/24 Rx Have you fallen in the past year?: Yes (11/25/24 lost balance minor burises.) [facility] Medical History (Updated 11/28/24 @ 08:[address] Joseph Smyth MD) Fatigue Shortness of breath on exertion Anxiety and [...] Diabetes Myocardial infarction Father Hypertension Heart disease (more content not included)... Normal [facility] Absolute lymphocyte countOrd ered By: Joseph Smyth on 11-25-2024 Lymphocytes Auto (Unsp spec) [#/Vol] 3.27 10*3/uL 0.83-4.51 [facility] Absolute neutrophil countOrd ered By: Joseph Smyth on 11-25-2024 Neutrophils (Bld) [#/Vol] 5.0 10*3/uL 2.0-7.7 [facility] Anion gap in Serum or Plasma Ordered By: Maksimhoustondaphney Smyth on 11-25-2024 Anion gap [Moles/Vol] 12 mmol/L - [facility] Automated lymphocyte count a s percentage of total leukocytesOrdered By: Joseph Smyth on 11-25-2024 Lymphocytes/100 WBC Auto (Unsp spec) 33.8 % - [facility] BUN/creatinine ratioOrdered By: Joseph Smyth on 11-25-2024 Urea nitrogen/Creatinine [Mass ratio] 21.3 mg/mg High 10- [facility] Basophil percentageOrdered B y: Joseph Smyth on 11-25-2024 Basophils/100 WBC (Bld) 0.4 % 0- [facility] Bilirubin, totalOrdered By: Joseph Smyth on 11-25-2024 Bilirubin [Mass/Vol] 0.33 mg/dL 0.00-1.30 [facility] CBC W/Diff, Automatedon 11-13 Absolute Lymph 3.27 X10 3/uL Normal 0.83-4.51 [facility] Comment on above: Performed By: #### L 373.6932, L100.0100, L500.4050, L501.9985, L500.4100 #### [facility] [address] [place], [place], [id number] Absolute Neut 5.0 X10 3/uL Normal 2.0-7.7 [facility] Comment on above: Performed By: #### L 501.9520, L100.0100, L500.4050, L501.9985, L500.4100 #### [facility] [address] [place], [address] Basophils/100 WBC (Bld) 0.4 % Normal 0-1 [facility] Comment on above: Performed By: #### L 501.9520, L100.0100, L500.4050, L501.9985, L500.4100 #### [facility] [address] [place], [address] Eosinophils/100 WBC (Bld) 3.2 % Normal 0-5 [facility] Comment on above: Performed By: #### L 501.9520, L100.0100, L500.4050, L501.9985, L500.4100 #### [facility] [address] [place], [address] Erythrocyte distribution width (RBC) [Ratio] 12.8 % Normal 11.6-14.6 [facility] Comment on above: Performed By: #### L 501.9520, L100.0100, L500.4050, L501.9985, L500.4100 #### [facility] [address] [place], [address] Hematocrit (Bld) [Volume fraction] 38.8 % Normal 37-47 [facility] Comment on above: Performed By: #### L 501.9520, L100.0100, L500.4050, L501.9985, L500.4100 #### [facility] [address] [place], [address] Hemoglobin (Bld) [Mass/Vol] 13.1 g/dL Normal 12.0-15.0 [facility] Comment on above: Performed By: #### L 501.9520, L100.0100, L500.4050, L501.9985, L500.4100 #### [facility] [address] [place], [address] IG% 0.300 Normal 0.0-0.9 [facility] Comment on above: Result Comment: IG% - Immature Granulocytes (promyelocytes, myelocytes and metamyelocytes) > 1% indicates that a LEFT SHIFT is Present. Performed By: #### L 501.9520, L100.0100, L500.4050, L501.9985, L500.4100 #### [facility] [address] [place], [address] Lymphocytes/100 WBC (Bld) 33.8 % Normal 19-41 [facility] Comment on above: Performed By: #### L 501.9520, L100.0100, L500.4050, L501.9985, L500.4100 #### [facility] [address] [place] [place], [address] MCH (RBC) [Entitic mass] 30.3 pg Normal 27.0-32.0 [facility] Comment on above: Performed By: #### L 501.9520, L100.0100, L500.4050, L501.9985, L500.4100 #### [facility] [address] [place], [address] MCHC (RBC) [Mass/Vol] 33.8 g/dL Normal 32-36 [facility] Comment on above: Performed By: #### L 501.9520, L100.0100, L500.4050, L501.9985, L500.4100 #### [facility] [address] [place], [address] MCV (RBC) [Entitic vol] 89.8 fL Normal 81-99 [facility] Comment on above: Performed By: #### L 501.9520, L100.0100, L500.4050, L501.9985, L500.4100 #### [facility] [address] [place], [address] Monocytes/100 WBC (Bld) 11.1 % High 0-10 [facility] Comment on above: Performed By: #### L 501.9520, L100.0100, L500.4050, L501.9985, L500.4100 #### [facility] [address] [place], [address] Neutrophils/100 WBC (Bld) 51.2 % Normal 47-70 [facility] Comment on above: Performed By: #### L 501.9520, L100.0100, L500.4050, L501.9985, L500.4100 #### [facility] [address] [place], [address] Nucleated RBC (Bld) [#/Vol] 0 10*3/uL Normal 0-5 [facility] Comment on above: Performed By: #### L 501.9520, L100.0100, L500.4050, L501.9985, L500.4100 #### [facility] [address] [place], [address] Platelet mean volume (Bld) [Entitic vol] 9.9 fL Normal 6.2-12.0 [facility] Comment on above: Performed By: #### L 501.9520, L100.0100, L500.4050, L501.9985, L500.4100 #### [facility] [address] [place], [address] Platelets (Bld) [#/Vol] 292 10*3/uL Normal 150-450 [facility] Comment on above: Performed By: #### L 501.9520, L100.0100, L500.4050, L501.9985, L500.4100 #### [facility] [address] [place], [address] RBC (Bld) [#/Vol] 4.32 10*6/uL Normal 4.2-5.4 [facility] Comment on above: Performed By: #### L 501.9520, L100.0100, L500.4050, L501.9985, L500.4100 #### [facility] [address] [place], [address] RDW SD 42.4 fl Normal 35.1-43.9 [facility] Comment on above: Performed By: #### L 501.9520, L100.0100, L500.4050, L501.9985, L500.4100 #### [facility] [address] [place], [address] WBC (Bld) [#/Vol] 9.7 10*3/uL Normal 4.4-11.0 [facility] Comment on above: Performed By: #### L 501.9520, L100.0100, L500.4050, L501.9985, L500.4100 #### [facility] [address] [place], [address] Calculated very low density lipoprotein (VLDL) cholesterol measurementOrdered By: Joseph Smyth on 11-25-2024 Calculated very low density lipoprotein (VLDL) cholesterol measurement 21 mg/dL 5-40 [facility] Carbon dioxide, total [Moles /volume] in Central venous bloodOrdered By: Joseph Smyth on 11-25-2024 CO2 [Moles/Vol] 22.8 mmol/L 21.0-32.0 [facility] Chloride assayOrdered By: Natalie Smyth on 11-25-2024 Chloride [Moles/Vol] 103 mmol/L 98-108 [facility] Comprehensive Metabolic Prof ilon 11-25-2024 Albumin [Mass/Vol] 4.1 g/dL Normal 3.4-4.8 [facility] Comment on above: Performed By: #### L 501.9520, L100.0100, L500.4050, L501.9985, L500.4100 ####[facility] [address] [place], [address] Albumin/Globulin [Mass ratio] 1.4 {ratio} Normal 0.9-2.4 [facility] Comment on above: Performed By: #### L 501.9520, L100.0100, L500.4050, L501.9985, L500.4100 ####[facility] [address] [place], [address] ALK PHOS 109 U/L High 35-104 [facility] Comment on above: Performed By: #### L 501.9520, L100.0100, L500.4050, L501.9985, L500.4100 ####[facility] [address] [place], [address] ALT [Catalytic activity/Vol] 19 U/L Normal <=34 [facility] Comment on above: Performed By: #### L 501.9520, L100.0100, L500.4050, L501.9985, L500.4100 ####[facility] [address] [place], [address] AST [Catalytic activity/Vol] 24 U/L Normal <=31 [facility] Comment on above: Performed By: #### L 501.9520, L100.0100, L500.4050, L501.9985, L500.4100 ####[facility] [address] [place], [address] Bilirubin [Mass/Vol] 0.33 mg/dL Normal 0.00-1.30 [facility] Comment on above: Performed By: #### L 501.9520, L100.0100, L500.4050, L501.9985, L500.4100 ####[facility] [address] [place], [address] BUN/CRE 21.3 RATIO High 10-20 [facility] Comment on above: Performed By: #### L 501.9520, L100.0100, L500.4050, L501.9985, L500.4100 ####[facility] [address] [place], [address] Calcium [Mass/Vol] 9.0 mg/dL Normal 7.6-11.0 [facility] Comment on above: Performed By: #### L 501.9520, L100.0100, L500.4050, L501.9985, L500.4100 ####[facility] [address] [place], [address] Chloride [Moles/Vol] 103 mmol/L Normal 98-108 [facility] Comment on above: Performed By: #### L 501.9520, L100.0100, L500.4050, L501.9985, L500.4100 ####[facility] [address] [place], [address] CO2 [Moles/Vol] 22.8 mmol/L Normal 21.0-32.0 [facility] Comment on above: Performed By: #### L 501.9520, L100.0100, L500.4050, L501.9985, L500.4100 ####[facility] [address] [place], [address] Creatinine [Mass/Vol] 0.88 mg/dL Normal 0.70-1.20 [facility] Comment on above: Performed By: #### L 501.9520, L100.0100, L500.4050, L501.9985, L500.4100 ####[facility] [address] [place], [address] GAP 12 Normal 5-15 [facility] Comment on above: Performed By: #### L 501.9520, L100.0100, L500.4050, L501.9985, L500.4100 ####[facility] [address] [place], [address] GFR/1.73 sq M.predicted among non-blacks MDRD (S/P/Bld) [Vol rate/Area] 71 mL/min/{1.73_m2} Normal >60 [facility] Comment on above: Result Comment: mL/m in/1.73m2 CKD-EPI Creatinine Equation (2020) Performed By: #### L 501.9520, L100.0100, L500.4050, L501.9985, L500.4100 ####[facility] [address] [place], [address] Globulin (S) [Mass/Vol] 3.0 g/dL Normal 2.2-4.2 [facility] Comment on above: Performed By: #### L 501.9520, L100.0100, L500.4050, L501.9985, L500.4100 ####[facility] [address] [place], [address] Glucose [Mass/Vol] 110 mg/dL High 70-99 [facility] Comment on above: Performed By: #### L 501.9520, L100.0100, L500.4050, L501.9985, L500.4100 ####[facility] [address] [place], [address] Potassium [Moles/Vol] 3.8 mmol/L Normal 3.3-5.1 [facility] Comment on above: Performed By: #### L 501.9520, L100.0100, L500.4050, L501.9985, L500.4100 ####[facility] [address] [place], [address] Sodium [Moles/Vol] 138 mmol/L Normal 133-145 [facility] Comment on above: Performed By: #### L 501.9520, L100.0100, L500.4050, L501.9985, L500.4100 ####[facility] [address] [place], [address] T PROT 7.1 g/dL Normal 5.9-8.4 [facility] Comment on above: Performed By: #### L 501.9520, L100.0100, L500.4050, L501.9985, L500.4100 ####[facility] [address] [place], [address] Urea nitrogen [Mass/Vol] 19 mg/dL Normal 4-19 [facility] Comment on above: Performed By: #### L 501.9520, L100.0100, L500.4050, L501.9985, L500.4100 ####[facility] [address] [place], [address] Eosinophil percentageOrdered By: Joseph Smyth on 11-25-2024 Eosinophils/100 WBC (Bld) 3.2 % 0-5 [facility] Erythrocyte distribution wid th ratioOrdered By: Joseph Smyth on 11-25-2024 Erythrocyte distribution width (RBC) [Ratio] 12.8 % 11.6-14.6 [facility] Erythrocyte distribution wid th standard deviationOrdered By: Joseph Smyth on 11-25-2024 Erythrocyte distribution width (RBC) [Ratio] 42.4 fl 35.1-43.9 [facility] Glomerular filtration rate ( GFR) estimation/1.73 sq m using serum, plasma, or whole bOrdered By: Joseph Smyth on 11-25-2024 GFR/1.73 sq M.predicted among non-blacks MDRD (S/P/Bld) [Vol rate/Area] 71 mL/min/{1.73_m2} >60 [facility] Comment on above: mL/min/1.73m2 CKD-EP I Creatinine Equation (2020) Hematocrit Auto (Bld) [Volum e fraction]Ordered By: Joseph Smyth on 11-25-2024 Hematocrit (Bld) [Volume fraction] 38.8 % 37-47 [facility] Hemoglobin A1con 11-25-2024 HbA1c (Bld) [Mass fraction] 6.2 % High <=5.6 [facility] Comment on above: Result Comment: Norm al < 5.7 % Prediabetic 5.7 - 6.4 % Diabetic >or= 6.5 % Please note range changes. Performed By: #### L 501.9520, L100.0100, L500.4050, L501.9985, L500.4100 #### [facility] Laboratory [facility] [place], [place], [id number] Hemoglobin A1c percentageOrd ered By: Joseph Smyth on 11-25-2024 HbA1c (Bld) [Mass fraction] 6.2 % High <5.7 [facility] Comment on above: Normal < 5.7 % Predi abetic 5.7 - 6.4 % Diabetic >or= 6.5 % Please note range changes. Hemoglobin measurementOrdere d By: Joseph Smyth on 11-25-2024 Hemoglobin (Bld) [Mass/Vol] 13.1 g/dL 12.0-15.0 [facility] Immature granulocytes/100 WB C Auto (Bld)Ordered By: Joseph Smyth on 11-25-2024 Immature granulocytes/100 WBC (Bld) 0.300 % 0.0-0.9 [facility] Comment on above: IG% - Immature Granu locytes (promyelocytes, myelocytes and metamyelocytes) > 1% indicates that a LEFT SHIFT is Present. LDL calc ser/plasOrdered By: Joseph Smyth on 11-25-2024 Cholesterol in LDL [Mass/Vol] 89 mg/dL [facility] Comment on above: Wgigvodqvk=566-847 m g/dL & Higher Iigf=517 mg/dL or greater Laboratory - Chemistry and C hemistry - challengeOrdered By: Joseph Smyth on 11-25-2024 AST [Catalytic activity/Vol] 24 U/L <32 [facility] Lipid Profileon 11-25-2024 CHOL:HDL 3.09 Normal [facility] Comment on above: Performed By: #### L 501.9520, L100.0100, L500.4050, L501.9985, L500.4100 #### [facility] [address] [place], [address] Cholesterol [Mass/Vol] 163 mg/dL Normal <=200 [facility] Comment on above: Result Comment: Chol esterol level, Desirable <200 mg/dL Borderline high cholesterol 200-239 mg/dL High cholesterol >=240 mg/dL Recommendations of the NCEP Adult Treatment Panel for the following risk-cutoff thresholds for the [place] population. Performed By: #### L 501.9520, L100.0100, L500.4050, L501.9985, L500.4100 #### [facility] [address] [place], [address] Cholesterol in HDL [Mass/Vol] 53 mg/dL Normal [facility] Comment on above: Result Comment: Ema onal Cholesterol Education Program (NCEP) guidelines: <40 mg/dL: Low HDL-cholesterol (major risk factor for CHD) >= 60 mg/dL: High HDL-cholesterol (negative risk factor for CHD) HDL-cholesterol is affected by a number of factors, e.g. smoking, exercise, hormones, sex and age. Performed By: #### L 501.9520, L100.0100, L500.4050, L501.9985, L500.4100 #### [facility] [address] [place], [address] Cholesterol in LDL [Mass/Vol] 89 mg/dL Normal [facility] Comment on above: Result Comment: Bord xjmrjx=823-729 mg/dL Higher Xorj=352 mg/dL or greater Performed By: #### L 501.9520, L100.0100, L500.4050, L501.9985, L500.4100 #### [facility] [address] [place], [address] Cholesterol in VLDL [Mass/Vol] 21 mg/dL Normal 5-40 [facility] Comment on above: Performed By: #### L 501.9520, L100.0100, L500.4050, L501.9985, L500.4100 #### [facility] [address] [place], [place], [address] Triglyceride [Mass/Vol] 107 mg/dL Normal [facility] Comment on above: Result Comment: The drugs N-Acetylcysteine and Metamizole may falsely depress this assay. Normal range: <150 mg/dL Borderline High: 150-199 mg/dL High: 200-499 mg/dL Very High: >500 mg/dL Performed By: #### L 501.9520, L100.0100, L500.4050, L501.9985, L500.4100 #### [facility] [address] [place], [place], [id number] MCV (mean corpuscular volume ) determinationOrdered By: Joseph Smyth on 11-25-2024 MCV (RBC) [Entitic vol] 89.8 fL 81-99 [facility] Mean corpuscular hemoglobin (MCH) determinationOrdered By: Joseph Smyth on 11-25-2024 MCH (RBC) [Entitic mass] 30.3 pg 27.0-32.0 [facility] Mean corpuscular hemoglobin concentration (MCHC) determinationOrdered By: Joseph Smyth on 11-25-2024 MCHC (RBC) [Mass/Vol] 33.8 g/dL 32-36 [facility] Mean platelet volume determi nationOrdered By: Joseph Smyth on 11-25-2024 Platelet mean volume (Bld) [Entitic vol] 9.9 fL 6.2-12.0 [facility] Monocyte percentageOrdered B y: Joseph Smyth on 11-25-2024 Monocytes/100 WBC (Bld) 11.1 % High 0-10 [facility] Neutrophil percentageOrdered By: Joseph Smyth on 11-25-2024 Neutrophils/100 WBC (Bld) 51.2 % 47-70 [facility] Nucleated red blood cell per centageOrdered By: Joseph Smyth on 11-25-2024 Nucleated RBC/100 WBC (Bld) [Ratio] 0 % 0-5 [facility] Platelet countOrdered By: Natalie Smyth on 11-25-2024 Platelets (Bld) [#/Vol] 292 10*3/uL 150-450 [facility] Potassium measurement (mass/ volume)Ordered By: Joseph Smyth on 11-25-2024 Potassium (Unsp spec) [Mass/Vol] 3.8 mmol/L 3.3-5.1 [facility] RBC Auto (Bld) [#/Vol]Ordere d By: Joseph Smyth on 11-25-2024 RBC (Bld) [#/Vol] 4.32 10*6/uL 4.2-5.4 [facility] Screening total cholesterol/ high density lipoprotein (HDL) cholesterol ratioOrdered By: Joseph Smyth on 11-25-2024 Cholesterol.total/Sue sterol in HDL [Mass ratio] 3.09 {ratio} [facility] Serum creatinine measurement (mass/volume)Ordered By: Joseph Smyth on 11-25-2024 Creatinine [Mass/Vol] 0.88 mg/dL 0.70-1.20 [facility] Serum globulin measurementOr dered By: Joseph Smyth on 11-25-2024 Globulin (S) [Mass/Vol] 3.0 g/dL 2.2-4.2 [facility] Serum glucose measurement (m ass/volume)Ordered By: Joseph Smyth on 11-25-2024 Glucose [Mass/Vol] 110 mg/dL High 70-99 [facility] Serum or plasma alanine jordan otransferase (ALT) measurementOrdered By: Joseph Smyth on 11-25-2024 ALT [Catalytic activity/Vol] 19 U/L <35 [facility] Serum or plasma albumin david urement (mass/volume)Ordered By: Joseph Smyth on 11-25-2024 Albumin [Mass/Vol] 4.1 g/dL 3.4-4.8 [facility] Serum or plasma albumin/glob ulin mass ratioOrdered By: Joseph Smyth on 11-25-2024 Albumin/Globulin [Mass ratio] 1.4 {ratio} 0.9-2.4 [facility] Serum or plasma alkaline keanu sphatase measurementOrdered By: Joseph Smyth 11-25-2024 ALP [Catalytic activity/Vol] 109 U/L High 35-104 [facility] Serum or plasma calcium david urement (mass/volume)Ordered By: Joseph Smyth on 11-25-2024 Calcium [Mass/Vol] 9.0 mg/dL 7.6-11.0 [facility] Serum or plasma cholesterol in HDL measurement (mass/volume)Ordered By: Joseph Smyth on 11-25-2024 Cholesterol in HDL [Mass/Vol] 53 mg/dL >40 [facility] Comment on above: National Cholesterol Education Program (NCEP) guidelines:<40 mg/dL: Low HDL-cholesterol (major risk factor for CHD)>= 60 mg/dL: High HDL-cholesterol (negative risk factor for CHD)HDL-cholesterol is affected by a number of factors, e.g. smoking, exercise, hormones, sex and age. Serum or plasma cholesterol measurement (mass/volume)Ordered By: Joseph Smyth on 11-25-2024 Cholesterol [Mass/Vol] 163 mg/dL <201 [facility] Comment on above: Cholesterol level, D esirable <200 mg/dLBorderline high cholesterol 200-239 mg/dLHigh cholesterol >=240 mg/dLRecommendations of the NCEP Adult Treatment Panel for the following risk-cutoff thresholds for the [place] population. Serum or plasma urea nitroge n measurement (mass/volume)Ordered By: Joseph Smyth 11-25-2024 Urea nitrogen [Mass/Vol] 19 mg/dL 4-19 [facility] Sodium levelOrdered By: Maksim Smyth on 11-25-2024 Sodium [Moles/Vol] 138 mmol/L 133-145 [facility] TSH DL <= 0.005 mIU/L QnOrde red By: Joseph Smyth on 11-25-2024 TSH Qn 4.510 uIU/mL High 0.300-4.200 [facility] Thyroid Stim Hormone (TSH)on 11-25-2024 TSH 4.510 uIU/mL High 0.300-4.200 [facility] Comment on above: Performed By: #### L 501.9520, L100.0100, L500.4050, L501.9985, L500.4100 ####[facility] [address] [place], [address] Total proteinOrdered By: [place] on 11-25-2024 Protein [Mass/Vol] 7.1 g/dL 5.9-8.4 [facility] Triglycerides measurementOrd ered By: Maksimnemodaphney Smyth on 11-25-2024 Triglyceride [Mass/Vol] 107 mg/dL <199 [facility] Comment on above: The drugs N-Acetylcy steine and Metamizole may falsely depress this assay. Normal range: <150 mg/dLBorderline High: 150-199 mg/dLHigh: 200-499 mg/dLVery High: >500 mg/dL White blood cell (WBC) count Ordered By: Maksimnemodaphney Smyth on 11-25-2024 WBC (Bld) [#/Vol] 9.7 10*3/uL 4.4-11.0 [facility] EGD Reporton 10-26-2024 EGD Report [facility] Medical Records Department [address] [place] [address] EGD Report MR#: [id number] Acct: [id number] Name: CULLEN CUEVA Rep #: [id number] : 1955 69 From: Brant Friend PCP: Dr. Joseph Smyth MD Status:[facility] Patient Name: Cullen Cueva Procedure Date: 10/26/2024 [...] the Z-line (43 cm from the incisors). [place]-colored mucosa was present. The maximum longitudinal extent [...] pathology results. Procedure Code(s): --- Professional --- 59693, Esophagogastroduodenosco py, flexible, transoral; with biopsy, single or multiple CPT copyright 2021 [employer]. All rights reserved. The codes documented in this report are preliminary and upon soil scientist review may be revised to meet current compliance requirements. Brant Langley DO 10/26/2024 3:10:29 PM This report has been signed electronically. Number of Addenda: 0 Note Initiated On: 10/26/2024 2:48 PM 10/26/24 1510 Date Brant Valles Signature: Date (if indicated) CC: Dr. Joseph Smyth MD; Brant Langley DO Date Dictated: 10/26/24 1448 Date Transcribed: Superintendent Logging: RAY Signed [facility] MR/POSTOP.Herminio 10-26-2024 MR/POSTOP.[facility] Medical Records Department [address] [place] [address] Anesthesia Postop Eval I 10/26/24 1514 MR#: [id number] Acct: [id number] Name: CULLEN CUEVA Rep #: [id number] : 1955 69 From: Twan Serrato CRNA PCP: Dr. Joseph Smyth MD Status:[facility] Y Race: C Location: [address] Anesthesia: Postop Eval I Current Vital Signs Temperature: 97.7 F Pulse Rate: 83 Blood Pressure: 123/68 Respiratory Rate: 16 Pulse Ox: 94 Assessment Airway patent: Yes Spontaneous unlabored respirations: Yes nausea: No Vomiting: No Anesthesia Complication: No Fluid Hydration Crystalloid volume administer (ml): 200 Total IV fluid infused: 200 Progress Note Anesthesia document: Postop Eval 1 completed: Yes 10/26/24 1514 Date Twan Serrato FIRE ENGINEER Cosigner Signature: Date CC: Signed Normal [facility] MR/[id number] 10-26-2024 [facility] Medical Records Department [address] [place] [address] Anesthesia Postop Eval II 10/26/24 1746 MR#: [id number] Acct: [id number] Name: CULLEN CUEVA Rep #: [id number] : 1955 69 From: Corey Patel MD PCP: Dr. Joseph Smyth MD Status:[facility] Y Race: C Location: [place] Anesthesia Postop Eval I Sum Postop Eval Completion status Anesthesia document: Postop Eval 1 completed: Yes Anesthesia Postop Eval I Summary Anesthesia Postop Eval I Summary: Anesthesia Postop Eval I: Assessment Summary Airway patent Yes 10/26/24 15:14 FIRE [email or web address].TNES Spontaneous unlabored Yes 10/26/24 15:14 FIRE ENGINEER.TNES respirations Mental status nausea No 10/26/24 15:14 FIRE ENGINEER.TNES Vomiting No 10/26/24 15:14 FIRE ENGINEER.TNES Anesthesia Postop Eval I: Fluid Summary Crystalloid volume administer 200 10/26/24 15:14 FIRE ENGINEER.TNES (ml) Colloids volume administered ( ml) Blood Product volume administered (ml) Total IV fluid infused 200 10/26/24 15:14 FIRE ENGINEER.TNES Anesthesia Postop Eval I: Summary Notes Anesthesia Complication No 10/26/24 15:14 FIRE ENGINEER.TNES Anesthesia Complication Comment: Post-operative progress note Anesthesia: Postop Eval II Evaluation Mental status: Awake and Calm Pain Level: 0 nausea: No Vomiting: No Complications Anesthesia Complication: No 10/26/24 1747 Date Corey Bautista Signature: Date CC: Signed Normal [facility] Surgery Specimen Level Faye 10-26-2024 Surgery Specimen Level IV Patient Age/Sex Location Account Attending Physician CULLEN CUEVA 69/F EN [id number] Brant Langley DO Specimen: [id number] Received: 10/26/24 Status: ALTHEA Catalan Num: [id number] Spec Type: EGD BIOPSY Subm Dr: DO [...] name, date of , and distal esophagus biopsy" are 2 may-pink fragments of mucosal tissue measuring 0.4 x 0.4 x 0.2 cm and 0.7 x 0.2 x 0.2 cm. Submitted in toto in A1. [facility] 10-27-2024 CPT:47337 Patient Age/Sex Location Account Attending Physician CULLEN CUEVA 69/F EN [id number] Brant Langley DO Signed (signature on file) Dr. Marquita Palacios MD 11/08/24 1426 Normal [facility] Comment on above: Performed By: #### P SUIV ####[facility] [address] [place], [address] MR/David 10-24-2024 /PATRAGHAV [facility] Medical Records Department [address] [place] [address] PAT - Anesthesia 10/24/24 1623 MR#: [id number] Acct: [id number] Name: KENACULLEN Rep #: [id number] : 1955 69 From: oCrey Patel MD PCP: Dr. Joseph Smyth MD [place] [place] Race: C Location: EN Pre-Assessment Diagnosis/Proposed Procedure Planned Operative Procedure(s): EGD Anesthesia History Anesthesia History - education program associate: Anesthesia History - education program associate Hx Hospitalization No 10/24/24 13:50 Any Problems [...] take am of surgery PONV PONV - education program associate: PONV - education program associate Female Yes 10/24/24 13:50 HX of Motion [...] 09/23/24 08:28 Respiratory Assessment Respiratory Assessment - education program associate: Respiratory Tract Infection Hx - education program associate Hx Respiratory Tract Infection No 10/24/24 13:50 STOP Sleep Apnea STOP Sleep Apnea - education program associate: STOP Sleep Apnea - education program associate Hx Hypertension No 10/24/24 13:50 Hx Sleep [...] Tobacco Use History Tobacco Use History - education program associate: Tobacco Use History - education program associate Tobacco Use Smoking Status Former smoker 10/24/24 13:50 Hx Tobacco Use No 10/24/24 13:50 Years Smoking Packs Smoked per Day Smoking Cessation Date was No - quit smoking greater 10/24/24 13:50 within the last 15 years than 15 years ago Hx Smoking Cessation Date 06/15/84 10/24/24 13:50 Hx Smoking Cessation Counseling Hematologic Medial History Hematologic Hx - education program associate: Hematologic Medical Hx - form block maker Hx of Blood Transfusion No 10/24/24 13:50 Hx of Transfusion in last 3 No 10/24/24 13:50 Months Date of Last Transfusion (if within last 3 months) Ever experience any problems No 10/24/24 13:50 with transfusion(s)? Specify any problems Hx of Preganancy in last 3 No 10/24/24 13:50 Months Nurse Filling Out Transfusion MGRIYUKI 10/24/24 13:50 Questions: Date: 10/24/24 10/24/24 13:50 Time: 13:52 10/24/24 13:50 Patient unable to answer at this time (ie. confused, unrespo /Reproduction History /Reproductive History - education program associate: /Reproductive Hx- education program associate Hx Now No 10/24/24 13:50 Gestational Age (in weeks): EDC: Hx Hx Para Hx Section SAB No 10/24/24 13:50 PFSH Medical History (Updated 10/24/24 @ 14:00 by [...] health xander (more content not included)... Normal [facility] Gastroenterology Visit Repor ton 10-18-2024 Gastroenterology Visit Report [facility] Gastroenterology [address] [place] [address] OFFICE VISIT Date of Service: 10/18/24 MR#: [id number] Acct: [id number] Name: CULLEN CUEVA Rep #: [id number] : 1955 Provider: Brant Friend, DO Age/Sex: 69/F Location: [facility] Status: Signed Intake Vital Signs 09/23/24 08:28 [...] any questions or concerns at this time. [facility] Medical History (Updated 09/23/24 @ 13:01 [...] CAD (coronary (more content not included)... Normal [facility] Internal Medicine Office Vis iton 09-23-2024 Internal Medicine Office Visit [facility] [place] [address] [place] [address] OFFICE VISIT Date of Service: 09/23/24 MR#: [id number] Acct: [id number] Name: CULLEN CUEVA Rep #: [id number] : 1955 Provider: Dr. Joseph jane MD Age/Sex: 69/F Location: [facility] Status: Signed Intake Vital Signs 08/29/24 08:59 [...] POSSIBLE INCREASE IN MEDS Chief Complaint: Follow-up Environmental Science Program Director Required: No Accompanied by: Self Is patient in pain?: No Allergies pravastatin (From Pravachol) Allergy (Mild, Verified 09/23/24 08:26) itching ketoprofen (From Orudis) Allergy (Verified 09/23/24 08:26) Nausea/Vom/Diarrhea hydrochlorothiazide (From Dyazide) Adverse Reaction (Intermediate, Verified 09/23/24 08:26) Other triamterene (From Dyazide) Adverse Reaction (Intermediate, Verified 04/11/25 08:26) Other Medications ???Medication ???Instructions ???Recorded ???Confirmed [...] infarction [place] (more content not included)... Normal [facility] Internal Medicine Office Vis kate 08-29-2024 Internal Medicine Office Visit [facility] [address] [place] [address] [place] [address] OFFICE VISIT Date of Service: 08/29/24 MR#: [id number] Acct: [id number] Name: CULLEN CUEVA Rep #: [id number] : 1955 Provider: Dr. Joseph jane MD Age/Sex: 69/F Location: [facility] Status: Signed Intake Vital Signs 05/02/24 09:56 [...] M FU Chief Complaint: Follow-up chronic conditions Environmental Science Program Director Required: No Is patient in pain?: [...] fallen in the past year?: Yes (08/2024.) [facility] Medical History (Updated 08/29/24 @ 17:33 [...] Grandfather Alcoholism (more content not included)... Normal [facility] Laboratory - Hematology and Cell countsOrdered By: Joseph Smyth on 08-29-2024 HbA1c (Bld) [Mass fraction] 6.2 % 4.2-6.3 [facility] MRI Abd WITH and W/O Contras ton 05-24-2024 MRI Abd WITH and W/O Contrast [facility] Imaging Services [address] [place] [id number] MRI Abd WITH and W/O Contrast MR#: [id number] Acct: [id number] Name: CULLEN CUEVA Rep #: [id number] : 1955 F 69 From: Joseph Beltrán PCP: Dr. Joseph Smyth MD Status: REG [facility] Study: MRI Abd WITH and W/O Contrast Date of Exam: Exam# [id number] Ordering Dr: AUTUMN POOLE [id number] EXAM: MR ABDOMEN WITHOUT AND WITH INTRAVENOUS [...] CC: Dr. Joseph Smyth MD; AUTUMN POOLE Superintendent Logging: Signed Normal [facility] Pulmonary Visit Reporton Pulmonary Visit Report [facility] Pulmonary Medicine of [address] [place] [address] OFFICE VISIT Date of Service: 05/10/24 MR#: [id number] Acct: [id number] Name: CULLEN CUEVA Rep #: [id number] : 1955 Provider: HILARY Saleh Age/Sex: 69/F Location: [facility] Status: Signed Assessment and Plan Assessment and [...] 40 mg (more content not included)... Normal [facility] Basic Metabolic Profile (BMP )on 05-02-2024 BUN/CRE 19.3 RATIO Normal 10-20 [facility] Comment on above: Performed By: #### L 501.9520, L500.2500, L100.0100 ####[facility] [address] [place], [address] CA,Total 9.2 mg/dL Normal 8.5-10.1 [facility] Comment on above: Performed By: #### L 501.9520, L500.2500, L100.0100 ####[facility] [address] [place], [address] Chloride [Moles/Vol] 105 mmol/L Normal 98-107 [facility] Comment on above: Performed By: #### L 501.9520, L500.2500, L100.0100 ####[facility] [address] [place], [address] CO2 [Moles/Vol] 25.0 mmol/L Normal 21.0-32.0 [facility] Comment on above: Performed By: #### L 501.9520, L500.2500, L100.0100 ####[facility] [address] [place], [address] Creatinine [Mass/Vol] 0.78 mg/dL Normal 0.55-1.02 [facility] Comment on above: Result Comment: The validity of the calculated GFR GFRAA in patients over 70 years has not been determined. Clinical correlation is essential. Performed By: #### L 501.9520, L500.2500, L100.0100 ####[facility] [address] [place], [address] EST GFR - AA 95 mL/min Normal >60 [facility] Comment on above: Result Comment: Afri can Algerian GFR Calc Performed By: #### L 501.9520, L500.2500, L100.0100 ####[facility] [address] [place], [address] GAP 8 Normal 5-15 [facility] Comment on above: Performed By: #### L 501.9520, L500.2500, L100.0100 ####[facility] [address] [place], [address] GFR/1.73 sq M.predicted among non-blacks MDRD (S/P/Bld) [Vol rate/Area] 78 mL/min/{1.73_m2} Normal >60 [facility] Comment on above: Result Comment: Non- GFR Calc Performed By: #### L 501.9520, L500.2500, L100.0100 ####[facility] [address] [place], [address] Glucose [Mass/Vol] 123 mg/dL High 74-106 [facility] Comment on above: Result Comment: Fast ing Glucose result from 100 to 125 mg/dL suggests IMPAIRED HOMEOSTASIS per A.D.A. criteria. Performed By: #### L 501.20, L500.2500, L100.0100 ####[facility] [address] [place], [address] Potassium [Moles/Vol] 3.5 mmol/L Normal 3.5-5.1 [facility] Comment on above: Performed By: #### L 501.9520, L500.2500, L100.0100 ####[facility] [address] [place], [address] Sodium [Moles/Vol] 138 mmol/L Normal 136-145 [facility] Comment on above: Performed By: #### L 501.9520, L500.2500, L100.0100 ####[facility] [address] [place], [address] Urea nitrogen [Mass/Vol] 15 mg/dL Normal 7-18 [facility] Comment on above: Performed By: #### L 501.9520, L500.2500, L100.0100 ####[facility] [address] [place], [address] CBC W/Diff, Automatedon 11- Absolute Lymph 2.15 X10 3/uL Normal 0.83-4.51 [facility] Comment on above: Performed By: #### L 501.9520, L500.2500, L100.0100 ####[facility] [address] [place], [address] Absolute Neut 6.2 X10 3/uL Normal 2.0-7.7 [facility] Comment on above: Performed By: #### L 501.9520, L500.2500, L100.0100 ####[facility] [address] [place], [address] Basophils/100 WBC (Bld) 0.4 % Normal 0-1 [facility] Comment on above: Performed By: #### L 501.9520, L500.2500, L100.0100 ####[facility] [address] [place], [address] Eosinophils/100 WBC (Bld) 1.5 % Normal 0-5 [facility] Comment on above: Performed By: #### L 501.9520, L500.2500, L100.0100 ####[facility] [address] [place], [address] Erythrocyte distribution width (RBC) [Ratio] 13.1 % Normal 11.6-14.6 [facility] Comment on above: Performed By: #### L 501.9520, L500.2500, L100.0100 ####[facility] [address] [place], [address] Hematocrit (Bld) [Volume fraction] 43.0 % Normal 37-47 [facility] Comment on above: Performed By: #### L 501.9520, L500.2500, L100.0100 ####[facility] [address] [place], [address] Hemoglobin (Bld) [Mass/Vol] 14.3 g/dL Normal 12.0-15.0 [facility] Comment on above: Performed By: #### L 501.9520, L500.2500, L100.0100 ####[facility] [address] [place], [address] IG% 0.400 Normal 0.0-0.9 [facility] Comment on above: Result Comment: IG% - Immature Granulocytes (promyelocytes, myelocytes and metamyelocytes) > 1% indicates that a LEFT SHIFT is Present. Performed By: #### L 501.9520, L500.2500, L100.0100 ####[facility] [address] [place], [address] Lymphocytes/100 WBC (Bld) 23.0 % Normal 19-41 [facility] Comment on above: Performed By: #### L 501.9520, L500.2500, L100.0100 ####[facility] [address] [place], [address] MCH (RBC) [Entitic mass] 30.0 pg Normal 27.0-32.0 [facility] Comment on above: Performed By: #### L 501.9520, L500.2500, L100.0100 ####[facility] [address] [place], [address] MCHC (RBC) [Mass/Vol] 33.3 g/dL Normal 32-36 [facility] Comment on above: Performed By: #### L 501.9520, L500.2500, L100.0100 ####[facility] [address] [place], [address] MCV (RBC) [Entitic vol] 90.1 fL Normal 81-99 [facility] Comment on above: Performed By: #### L 501.9520, L500.2500, L100.0100 ####[facility] [address] [place], [address] Monocytes/100 WBC (Bld) 8.6 % Normal 0-10 [facility] Comment on above: Performed By: #### L 501.9520, L500.2500, L100.0100 ####[facility] [address] [place], [address] Neutrophils/100 WBC (Bld) 66.1 % Normal 47-70 [facility] Comment on above: Performed By: #### L 501.9520, L500.2500, L100.0100 ####[facility] [address] [place], [address] Nucleated RBC (Bld) [#/Vol] 0 10*3/uL Normal 0-5 [facility] Comment on above: Performed By: #### L 501.9520, L500.2500, L100.0100 ####[facility] [address] [place], [address] Platelet mean volume (Bld) [Entitic vol] 9.8 fL Normal 6.2-12.0 [facility] Comment on above: Performed By: #### L 501.9520, L500.2500, L100.0100 ####[facility] [address] [place], [address] Platelets (Bld) [#/Vol] 323 10*3/uL Normal 150-450 [facility] Comment on above: Performed By: #### L 501.9520, L500.2500, L100.0100 ####[facility] [address] [place], [address] RBC (Bld) [#/Vol] 4.77 10*6/uL Normal 4.2-5.4 [facility] Comment on above: Performed By: #### L 501.9520, L500.2500, L100.0100 ####[facility] [address] [place], [address] RDW SD 43.0 fl Normal 35.1-43.9 [facility] Comment on above: Performed By: #### L 501.9520, L500.2500, L100.0100 ####[facility] [address] [place], [address] WBC (Bld) [#/Vol] 9.4 10*3/uL Normal 4.4-11.0 [facility] Comment on above: Performed By: #### L 501.9520, L500.2500, L100.0100 ####[facility] [address] [place], [address] Internal Medicine Office Vis ito 05-02-2024 Internal Medicine Office Visit [facility] [address] [place] [address] [place] [address] OFFICE VISIT Date of Service: 05/02/24 MR#: [id number] Acct: [id number] Name: CULLEN CUEVA Rep #: [id number] : 1955 Provider: Dr. Joseph jane MD Age/Sex: 69/F Location: [facility] Status: Signed Intake Vital Signs 02/01/24 09:21 [...] m fu Chief Complaint: Follow-up chronic conditions Environmental Science Program Director Required: No Is patient in pain?: [...] Former smoker (more content not included)... Normal [facility] Thyroid Stim Hormone (TSH)on 05-02-2024 TSH 0.850 uIU/mL Normal 0.358-3.740 [facility] Comment on above: Performed By: #### L 501.9520, L500.2500, L100.0100 ####[facility] [address] [place], [address] Thyroidon 04-22-2024 Thyroid [facility] [address] [place] [address] Thyroid MR#: [id number] Acct: [id number] Name: CULLEN CUEVA Rep #: [id number] : 1955 F 69 From: Ad wan MD PCP: Dr. Joseph Smyth MD Status: [facility] Study: Thyroid Date of Exam: 04/22/24 Exam# [id number] Ordering Dr: Katelynn Dye WATER CHASER-C [id number] STUDY: THYROID ULTRASOUND REASON FOR EXAM: Female, [...] CC: HILARY Dye; Dr. Joseph Smyth MD Superintendent Logging: Signed Normal [facility] Internal Medicine Office Vis iton 04-15-2024 Internal Medicine Office Visit [facility] [address] [place] [address] OFFICE VISIT Date of Service: 04/15/24 MR#: [id number] Acct: [id number] Name: CULLEN CUEVA Rep #: [id number] : 1955 Provider: HILARY el Age/Sex: 69/F Location: [facility] Status: Signed Intake Vital Signs 02/01/24 09:21 [...] Social History (more content not included)... Normal [facility] MR Pancreas WO and W contras t Faye 04-06-2024 These images are not reportable by radiology and will not be interpreted by Radiologists. IMAGING Breast Limited Unilateralon 03-10-2024 Breast Limited Unilateral [facility] [address] [place], [place] [address] Breast Limited Unilateral MR#: [id number] Acct: [id number] Name: CULLEN CUEVA Rep #: [id number] : 1955 F 68 From: Ad wan MD PCP: Dr. Joseph Smyth MD Status: REG CLI Study: Breast Limited Unilateral Date of Exam: Exam# [id number] Ordering Dr: Joseph Smyth MD [id number] STUDY: ULTRASOUND BREAST - LEFT REASON FOR [...] Signed: Ad Conner MD at 12:12 EDT , CC: Dr. Joseph Smyth MD Superintendent Logging: Signed Normal [facility] Albumin/Creatinineon 024 Albumin/Creatinine DL <= 20 mg/L (U) [Mass ratio] Normal [facility] Comment on above: Result Comment: One or more analytes used in this calculation is outside of the analytical measurement range. Calculation cannot be performed. Performed By: #### 1 4959-1 #### HIWOT Patterson ([id number]) [facility] ([facility]) [address] [place] [address] Albumin/Creatinine DL <= 20 mg/L (U) [Mass ratio]on 01-07-2024 Albumin DL <= 20 mg/L (U) [Mass/Vol] mg/dL Normal Not established [facility] Comment on above: Performed By: #### 1 4959-1 #### HIWOT Patterson ([id number]) [facility] ([facility]) [address] [place] [address] Creatinine (U) [Mass/Vol] 145.2 mg/dL Normal 20.0-320.0 [facility] Comment on above: Performed By: #### 1 4959-1 #### HIWOT Patterson ([id number]) [facility] ([facility]) [address] [place] [address]017 C reactive proteinon 024 CRP High sensitivity method [Mass/Vol] 2.7 mg/L High <1.0 [facility] Comment on above: Order Comment: [employer] R [employer] Research participant; insurance: Research Diagnosis code Z00.6 Award: [id number] IRB #: [id number] Performed By: #### 2 7298-9 #### HIWOT Patterson ([id number]) [facility] ([facility]) [address] [place] [address] CBC W Auto Differential pane l (Bld)on 01-07-2024 Basophils (Bld) [#/Vol] 0.02 x10*3/uL Normal 0.00-0.10 [facility] Comment on above: Order Comment: [employer] R [employer] Research participant; insurance: Research Diagnosis code Z00.6 Award: [id number] IRB #: [id number] Performed By: #### 5 7021-8 #### HIWOT Patterson ([id number]) [facility] ([facility]) [address] [place] [address] Basophils/100 WBC (Bld) 0.3 % Normal 0.0-2.0 [facility] Comment on above: Order Comment: [employer] R [employer]OVER Research participant; insurance: Research Diagnosis code Z00.6 Award: [id number] IRB #: [id number] Performed By: #### 5 7021-8 #### HIWTO Patterson ([id number]) [facility] ([facility]) [address] [place] [address] Eosinophils (Bld) [#/Vol] 0.07 x10*3/uL Normal 0.00-0.70 [facility] Comment on above: Order Comment: [facility] R [employer] Research participant; insurance: Research Diagnosis code Z00.6 Award: [id number] IRB #: [id number] Performed By: #### 5 7021-8 #### HIWOT Patterson ([id number]) [facility] ([facility]) [address] [place] [address] Eosinophils/100 WBC (Bld) 1.0 % Normal 0.0-6.0 [facility] Comment on above: Order Comment: [facility] R [employer] Research participant; insurance: Research Diagnosis code Z00.6 Award: [id number] IRB #: [id number] Performed By: #### 5 7021-8 #### HIWOT Patterson ([id number]) [facility] ([facility]) [address] [place] [address] Erythrocyte distribution width (RBC) [Ratio] 13.3 % Normal 11.5-14.5 [facility] Comment on above: Order Comment: [facility] R [employer] Research participant; insurance: Research Diagnosis code Z00.6 Award: [id number] IRB #: [id number] Performed By: #### 5 7021-8 #### HIWOT Patterson ([id number]) [facility] ([facility]) [address] [place] [address] Hematocrit (Bld) [Volume fraction] 44.9 % Normal 36.0-46.0 [facility] Comment on above: Order Comment: [facility] R [employer] Research participant; insurance: Research Diagnosis code Z00.6 Award: [id number] IRB #: [id number] Performed By: #### 5 7021-8 #### HIWOT Patterson ([id number]) [facility] ([facility]) [address] [place] [address] Hemoglobin (Bld) [Mass/Vol] 14.6 g/dL Normal 12.0-16.0 [facility] Comment on above: Order Comment: [facility] R [employer] Research participant; insurance: Research Diagnosis code Z00.6 Award: [id number] IRB #: [id number] Performed By: #### 5 7021-8 #### HIWOT Patterson ([id number]) [facility] ([facility]) [address] [place] [address] Immature granulocytes (Bld) [#/Vol] 0.03 x10*3/uL Normal 0.00-0.70 [facility] Comment on above: Order Comment: [facility] R [employer] Research participant; insurance: Research Diagnosis code Z00.6 Award: [id number] IRB #: [id number] Performed By: #### 5 7021-8 #### HIWOT Patterson ([id number]) [facility] ([facility]) [address] [place] [address] Immature granulocytes/100 WBC (Bld) 0.4 % Normal 0.0-0.9 [facility] Comment on above: Order Comment: [facility] R [employer] Research participant; insurance: Research Diagnosis code Z00.6 Award: [id number] IRB #: [id number] Result Comment: Deonna ture Granulocyte Count (IG) includes promyelocytes, myelocytes and metamyelocytes but does not include bands. Percent differential counts (%) should be interpreted in the context of the absolute cell counts (cells/UL). Performed By: #### 5 7021-8 #### HIWOT Patterson ([id number]) [facility] ([facility]) [address] [place] [address] Lymphocytes (Bld) [#/Vol] 1.71 x10*3/uL Normal 1.20-4.80 [facility] Comment on above: Order Comment: [facility] R [employer] Research participant; insurance: Research Diagnosis code Z00.6 Award: [id number] IRB #: [id number] Performed By: #### 5 7021-8 #### HIWOT Patterson ([id number]) [facility] ([facility]) [address] [place] [address]1761 Lymphocytes/100 WBC (Bld) 25.2 % Normal 13.0-44.0 [facility] Comment on above: Order Comment: [facility] R [employer] Research participant; insurance: Research Diagnosis code Z00.6 Award: [id number] IRB #: [id number] Performed By: #### 5 7021-8 #### HIWOT Patterson ([id number]) [facility] ([facility]) [address] [place] [address] 38343 MCH (RBC) [Entitic mass] 29.4 pg Normal 26.0-34.0 [facility] Comment on above: Order Comment: [facility] R [employer] Research participant; insurance: Research Diagnosis code Z00.6 Award: [id number] IRB #: [id number] Performed By: #### 5 7021-8 #### HIWOT Patterson ([id number]) [facility] ([facility]) [address] [place] [address] 08805 MCHC (RBC) [Mass/Vol] 32.5 g/dL Normal 32.0-36.0 [facility] Comment on above: Order Comment: [facility] R [employer] Research participant; insurance: Research Diagnosis code Z00.6 Award: [id number] IRB #: [id number] Performed By: #### 5 7021-8 #### HIWOT Patterson (57032) [facility] ([facility]) [address] [place] [address] 78283 MCV (RBC) [Entitic vol] 90 fL Normal 80-100 U [facility] Comment on above: Order Comment: [facility] [employer] Research participant; insurance: Research Diagnosis code Z00.6 Award: [id number] IRB #: [id number] Performed By: #### 5 7021-8 #### HIWOT Patterson (08127) [facility] ([facility]) [address] [place] [address] 91351 Monocytes (Bld) [#/Vol] 0.61 x10*3/uL Normal 0.10-1.00 [facility] Comment on above: Order Comment: [facility] R [employer] Research participant; insurance: Research Diagnosis code Z00.6 Award: [id number] IRB #: [id number] Performed By: #### 5 7021-8 #### HIWOT Patterson (53511) [facility] ([facility]) [address] [place] [address] 30414 Monocytes/100 WBC (Bld) 9.0 % Normal 2.0-10.0 [facility] Comment on above: Order Comment: [facility] R [employer] Research participant; insurance: Research Diagnosis code Z00.6 Award: [id number] IRB #: [id number] Performed By: #### 5 7021-8 #### HIWOT Patterson ([id number]) [facility] ([facility]) [address] [place] [address] 16486 Neutrophils (Bld) [#/Vol] 4.34 x10*3/uL Normal 1.20-7.70 [facility] Comment on above: Order Comment: [facility] R [facility] Research participant; insurance: Research Diagnosis code Z00.6 Award: [id number] IRB #: [id number] Result Comment: Perc ent differential counts (%) should be interpreted in the context of the absolute cell counts (cells/uL). Performed By: #### 5 7021-8 #### HIWOT Patterson ([id number]) [facility] ([facility]) [address] [place] [address] 72203 Neutrophils/100 WBC (Bld) 64.1 % Normal 40.0-80.0 [facility] Comment on above: Order Comment: [facility] R [employer] Research participant; insurance: Research Diagnosis code Z00.6 Award: [id number] IRB #: [id number] Performed By: #### 5 7021-8 #### HIWOT Patterson ([id number]) [facility] ([facility]) [address] [place] [address] 01688 Nucleated RBC/100 WBC (Bld) [Ratio] 0.0 /100 WBCs Normal 0.0-0.0 [facility] Comment on above: Order Comment: [facility] R [employer] Research participant; insurance: Research Diagnosis code Z00.6 Award: [id number] IRB #: [id number] Performed By: #### 5 7021-8 #### HIWOT Patterson ([id number]) [facility] ([facility]) [address] [place] [address] 49713 Platelets (Bld) [#/Vol] 320 x10*3/uL Normal 150-450 [facility] Comment on above: Order Comment: [facility] R [employer] Research participant; insurance: Research Diagnosis code Z00.6 Award: [id number] IRB #: [id number] Performed By: #### 5 7021-8 #### HIWOT Patterson ([id number]) [facility] ([facility]) [address] [place] [address] 00981 RBC (Bld) [#/Vol] 4.97 x10*6/uL Normal 4.00-5.20 [facility] Comment on above: Order Comment: [facility] R [employer] Research participant; insurance: Research Diagnosis code Z00.6 Award: [id number] IRB #: [id number] Performed By: #### 5 7021-8 #### HIWOT Patterson ([id number]) [facility] ([facility]) [address] [place] [address] 74706 WBC (Bld) [#/Vol] 6.8 x10*3/uL Normal 4.4-11.3 [facility] Comment on above: Order Comment: [facility] R [employer] Research participant; insurance: Research Diagnosis code Z00.6 Award: [id number] IRB #: [id number] Performed By: #### 5 7021-8 #### HIWOT Patterson ([id number]) [facility] ([facility]) [address] [place] [address] 54351 Calcidiolon 01-07-2024 25-hydroxyvitamin D3 [Mass/Vol] 56 ng/mL Normal 30-100 [facility] Comment on above: Order Comment: [facility] R [place] Research participant; insurance: Research Diagnosis code Z00.6 Award: [id number] IRB #: [id number] Performed By: #### 2 7298-9 #### HIWOT Patterson (45573) [facility] ([facility]) [address] [place] [address] 93907 Coagulation surface inducedo n 01-07-2024 aPTT Coag (PPP) [Time] 33 s Normal 27-38 [facility] Comment on above: Order Comment: [facility] Judith JORDAN Research participant; insurance: Research Diagnosis code Z00.6 Award: [id number] IRB #: [id number] The APTT is no longer used for monitoring Unfractionated Heparin Therapy. For monitoring Heparin Therapy, use the Heparin Assay. Performed By: #### 1 4979-9 #### HIWOT Patterson ([id number]) [facility] ([facility]) [address] [place] [address] 73637 Coagulation tissue factor in ducedon 01-07-2024 PT Coag (PPP) [Time] 12.3 s Normal 9.8-12.8 [facility] Comment on above: Order Comment: [facility] Judith ECOKERRY Research participant; insurance: Research Diagnosis code Z00.6 Award: [id number] IRB #: [id number] Performed By: #### 5 902-2 #### HIWOT Patterson (87104) [facility] ([facility]) [address] [place] [address] 09162 Comprehensive metabolic 2000 panelon 01-07-2024 Albumin BCP dye [Mass/Vol] 4.3 g/dL Normal 3.4-5.0 [facility] Comment on above: Order Comment: [facility] Judith ECOKERRY Research participant; insurance: Research Diagnosis code Z00.6 Award: [id number] IRB #: [id number] Performed By: #### 2 7298-9 #### HIWOT Patterson ([id number]) [facility] ([facility]) [address] [place] [address] 68053 ALP [Catalytic activity/Vol] 99 U/L Normal 33-136 [facility] Comment on above: Order Comment: [facility] Judith JORDAN Research participant; insurance: Research Diagnosis code Z00.6 Award: [id number] IRB #: [id number] Performed By: #### 2 7298-9 #### HIWOT Patterson ([id number]) [facility] ([facility]) [address] [place] [address] 08626 ALT With P-5'-P [Catalytic activity/Vol] 25 U/L Normal 7-45 [facility] Comment on above: Order Comment: [facility] R [place] Research participant; insurance: Research Diagnosis code Z00.6 Award: [id number] IRB #: [id number] Result Comment: Maria Elena ents treated with Sulfasalazine may generate falsely decreased results for ALT. Performed By: #### 2 7298-9 #### HIWOT Patterson ([id number]) [facility] ([facility]) [id number] [place] [address] 01937 Anion gap [Moles/Vol] 12 mmol/L Normal 10-20 [facility] Comment on above: Order Comment: [facility] R [employer] Research participant; insurance: Research Diagnosis code Z00.6 Award: [id number] IRB #: [id number] Performed By: #### 2 7298-9 #### HIWOT Patterson (26642) [facility] ([facility]) [address] [place] [id number] AST With P-5'-P [Catalytic activity/Vol] 22 U/L Normal 9-39 [facility] Comment on above: Order Comment: [facility] Research participant; insurance: Research Diagnosis code Z00.6 Award: [id number] IRB #: [id number] Performed By: #### 2 7298-9 #### HIWOT Patterson ([id number]) [facility] ([facility]) [address] [place] [address] 07080 Bilirubin [Mass/Vol] 0.6 mg/dL Normal 0.0-1.2 [facility] Comment on above: Order Comment: [facility] Research participant; insurance: Research Diagnosis code Z00.6 Award: [id number] IRB #: [id number] Performed By: #### 2 7298-9 #### HIWOT Patterson ([id number]) [facility] ([facility]) [address] [place] [address] 80878 Calcium [Mass/Vol] 9.2 mg/dL Normal 8.6-10.6 [facility] Comment on above: Order Comment: [facility] R ECOKERRY Research participant; insurance: Research Diagnosis code Z00.6 Award: [id number] IRB #: [id number] Performed By: #### 2 7298-9 #### HIWOT Patterson ([id number]) [facility] ([facility]) [address] [place] [address] 04876 Chloride [Moles/Vol] 100 mmol/L Normal 98-107 [facility] Comment on above: Order Comment: [facility] Judith ECOKERRY Research participant; insurance: Research Diagnosis code Z00.6 Award: [id number] IRB #: [id number] Performed By: #### 2 7298-9 #### HIWOT Patterson ([id number]) [facility] ([facility]) [address] [place] [address] 26931 CO2 [Moles/Vol] 31 mmol/L Normal 21-32 [facility] Comment on above: Order Comment: [facility] Judith ECOKERRY Research participant; insurance: Research Diagnosis code Z00.6 Award: [id number] IRB #: [id number] Performed By: #### 2 7298-9 #### HIWOT Patterson ([id number]) [facility] ([facility]) [address] [place] [address] 36159 Creatinine [Mass/Vol] 0.86 mg/dL Normal 0.50-1.05 [facility] Comment on above: Order Comment: [facility] Research participant; insurance: Research Diagnosis code Z00.6 Award: [id number] IRB #: [id number] Performed By: #### 2 7298-9 #### HIWOT Patterson ([id number]) [facility] ([facility]) [address] [place] [address] 68981 Glomerular filtration rate/1.73 sq M.predicted 74 mL/min/1.73m*2 Normal >60 [facility] Comment on above: Order Comment: [facility] Wong ECOKERRY Research participant; insurance: Research Diagnosis code Z00.6 Award: [id number] IRB #: [id number] Result Comment: Calc ulations of estimated GFR are performed using the 2020 CKD-EPI Study Refit equation without the race variable for the IDMS-Traceable creatinine methods. https://jasn.asnjournals.org/content//ASN.2020 055952 Performed By: #### 2 7298-9 #### HIWOT Patterson ([id number]) [facility] ([facility]) [address] [place] [address] 35939 Glucose [Mass/Vol] 119 mg/dL High 74-99 [facility] Comment on above: Order Comment: [facility] Research participant; insurance: Research Diagnosis code Z00.6 Award: [id number] IRB #: [id number] Performed By: #### 2 7298-9 #### HIWOT Patterson ([id number]) [facility] ([facility]) [address] [place] [address] 86980 Potassium [Moles/Vol] 4.3 mmol/L Normal 3.5-5.3 [facility] Comment on above: Order Comment: [facility] Research participant; insurance: Research Diagnosis code Z00.6 Award: [id number] IRB #: [id number] Performed By: #### 2 7298-9 #### HIWOT Patterson ([id number]) [facility] ([facility]) [address] [place] [address] 69919 Protein [Mass/Vol] 7.5 g/dL Normal 6.4-8.2 [facility] Comment on above: Order Comment: [facility] Research participant; insurance: Research Diagnosis code Z00.6 Award: [id number] IRB #: [id number] Performed By: #### 2 7298-9 #### HIWOT Patterson ([id number]) [facility] ([facility]) [address] [place] [address] 43944 Sodium [Moles/Vol] 139 mmol/L Normal 136-145 [facility] Comment on above: Order Comment: [facility] Research participant; insurance: Research Diagnosis code Z00.6 Award: [id number] IRB #: [id number] Performed By: #### 2 7298-9 #### HIWOT Patterson ([id number]) [facility] ([facility]) [address] [place] [address] 84833 Urea nitrogen [Mass/Vol] 16 mg/dL Normal 6-23 [facility] Comment on above: Order Comment: [facility] Research participant; insurance: Research Diagnosis code Z00.6 Award: [id number] IRB #: [id number] Performed By: #### 2 7298-9 #### HIWOT Patterson ([id number]) [facility] ([facility]) [address] [place] [address] 45096 Cystatin C and Glomerular fi ltration rate by Cystatin-based formula panelon 01-07-2024 Cystatin C [Mass/Vol] 1.2 mg/L Normal 0.5-1.2 [facility] Comment on above: Order Comment: [facility] Research participant; insurance: Research Diagnosis code Z00.6 Award: [id number] IRB #: [id number] Result Comment: Perf ormed By: [employer] [address] [place] [address] 06697 Tour Guide: Gael Augustine MD, PhD CLIA Number: [id number] Performed By: #### 2 7298-9 #### HIWOT Patterson ([id number]) [facility] ([facility]) [address] [place] [address] 89528 Fibrin D-dimer FEUon 024 Fibrin D-dimer FEU (PPP) [Mass/Vol] 385 ng/mL FEU Normal <=500 [facility] Comment on above: Order Comment: [facility] Research participant; insurance: Research Diagnosis code Z00.6 Award: [id number] IRB #: [id number] The D-Dimer assay is reported in ng/mL Fibrinogen Equivalent Units (FEU). The results of this assay should NOT be used for the exclusion of Deep Vein Thrombosis and/or Pulmonary Embolism. Performed By: #### 4 8065-7 #### HIWOT Patterson ([id number]) [facility] ([facility]) [address] [place] [address] 88632 Glomerular filtration rate/1 .73 sq M.predictedon 01-07-2024 GFR/1.73 sq M.predicted Cystatin-based formula (S/P/Bld) [Vol rate/Area] 55 mL/min/BSA Low >=60 [facility] Comment on above: Order Comment: [facility] Judith JORDAN Research participant; insurance: Research Diagnosis code Z00.6 Award: [id number] IRB #: [id number] Result Comment: INTERPRETIVE INFORMATION: eGFR by Cystatin C eGFR by Cystatin C was calculated using the CKD-EPI equation. Stage Description eGFR Range 1.......Normal or increased eGFR.......90 or Greater 2.......Mildly decreased eGFR..........60-89 3.......Moderately decreased eGFR......30-59 4.......Severely decreased eGFR........15-29 5.......Kidney Failure.................Less than 15 Performed By: [employer] [address] [place] [address] 20873 Tour Guide: Gael Augustine MD, PhD CLIA Number: [id number] Performed By: #### 2 7298-9 #### HIWOT Patterson ([id number]) [facility] ([facility]) [address] [place] [address] HbA1c (Bld) [Mass fraction]o n 01-07-2024 Average glucose Estimated from glycated hemoglobin (Bld) [Mass/Vol] 128 mg/dL Normal Not Established [facility] Comment on above: Order Comment: [facility]ORD[facility] Research participant; insurance: Research Diagnosis code Z00.6 Award: [id number] IRB #: [id number] Diagnosis of Diabetes-Adults Non-Diabetic: < or = 5.6% Increased risk for developing diabetes: 5.7-6.4% Diagnostic of diabetes: > or = 6.5% Performed By: #### 4 548-4 #### HIWOT Patterson ([id number]) [facility] ([facility]) [address] [place] [address] 35800 Hemoglobin A1c/Hemoglobin.to marlon 01-07-2024 HbA1c (Bld) [Mass fraction] 6.1 % High see below [facility] Comment on above: Order Comment: [employer] Research participant; insurance: Research Diagnosis code Z00.6 Award: [id number] IRB #: [id number] Diagnosis of Diabetes-Adults Non-Diabetic: < or = 5.6% Increased risk for developing diabetes: 5.7-6.4% Diagnostic of diabetes: > or = 6.5% Performed By: #### 4 548-4 #### HIWOT Patterson (35898) [facility] ([facility]) [address] [place], [place] [address] Lipid 1996 panelon 4 Cholesterol [Mass/Vol] 184 mg/dL Normal 0-199 Un [facility] Comment on above: Order Comment: [employer] Research participant; insurance: Research Diagnosis code Z00.6 Award: [id number] IRB #: [id number] Result Comment: Age Desirable Borderline High High [...] By: #### 2 7298-9 #### HIWOT Patterson ([id number]) [facility] ([facility]) [address] [place], [place] [address] Cholesterol in HDL [Mass/Vol] 63.7 mg/dL Normal [facility] Comment on above: Order Comment: [employer] Research participant; insurance: Research Diagnosis code Z00.6 Award: [id number] IRB #: [id number] Result Comment: Age Very Low Low Normal High 0-19 Y < 35 < 40 40-45 ---- 20-24 Y ---- < 40 >45 ---- >24 Y ---- < 40 40-60 >60 Performed By: #### 2 7298-9 #### HIWOT Patterson ([id number]) [facility] ([facility]) [address] [place] [address] 17793 Cholesterol in LDL [Mass/Vol] 102 mg/dL High <=99 [facility] Comment on above: Order Comment: [facility] Research participant; insurance: Research Diagnosis code Z00.6 Award: [id number] IRB #: [id number] Result Comment: Near Borderline AGE Desirable Optimal High High Very High 0-19 Y 0 - 109 --- 110-129 >/= 130 ---- 20-24 Y 0 - 119 --- 120-159 >/= 160 ---- >24 Y 0 - 99 100-129 130-159 160-189 >/=190 Performed By: #### 2 7298-9 #### HIWOT Patterson ([id number]) [facility] ([facility]) [address] [place] [address] 64559 Cholesterol in VLDL [Mass/Vol] 18 mg/dL Normal 0-40 [facility] Comment on above: Order Comment: [facility] [employer] Research participant; insurance: Research Diagnosis code Z00.6 Award: [id number] IRB #: [id number] Performed By: #### 2 7298-9 #### HIWOT Patterson ([id number]) [facility] ([facility]) [address] [place] [address] 42596 CHOLESTEROL/HDL RATIO 2.9 Normal [facility] Comment on above: Order Comment: [facility] Research participant; insurance: Research Diagnosis code Z00.6 Award: [id number] IRB #: [id number] Result Comment: Ref Values Desirable < 3.4 High Risk > 5.0 Performed By: #### 2 7298-9 #### HIWOT Patterson ([id number]) [facility] ([facility]) [address] [place] [address] 70091 NON HDL CHOLESTEROL 120 mg/dL Normal 0-149 [facility] Comment on above: Order Comment: [facility] Research participant; insurance: Research Diagnosis code Z00.6 Award: [id number] IRB #: [id number] Result Comment: Age Desirable Borderline High High Very High 0-19 Y 0 - 119 120 - 144 >/= 145 >/= 160 20-24 Y 0 - 149 150 - 189 >/= 190 ---- >24 Y 30 mg/dL above LDL Cholesterol goal Performed By: #### 2 7298-9 #### HIWOT Patterson ([id number]) [facility] ([facility]) [address] [place] [address] 13378 Triglyceride [Mass/Vol] 90 mg/dL Normal 0-149 [facility] Comment on above: Order Comment: [facility] Research participant; insurance: Research Diagnosis code Z00.6 Award: [id number] IRB #: [id number] Result Comment: Age Desirable Borderline High High [...] By: #### 2 7298-9 #### HIWOT Patterson ([id number]) [facility] ([facility]) [address] [place] [address] 52825 Natriuretic peptide B [Mass/ Vol]on 01-07-2024 Natriuretic peptide B (Bld) [Mass/Vol] 6 pg/mL Normal 0-99 [facility] Comment on above: Order Comment: [facility] Research participant; insurance: Research Diagnosis code Z00.6 Award: [id number] IRB #: [id number] Performed By: #### 2 7298-9 #### HIWOT Patterson ([id number]) [facility] ([facility]) [address] [place] [address] 06121 PT Coag (PPP) [Time]on 01-06 INR Coag (PPP) [Relative time] 1.1 Normal 0.9-1.1 [facility] Comment on above: Order Comment: [facility] Research participant; insurance: Research Diagnosis code Z00.6 Award: [id number] IRB #: [id number] Performed By: #### 5 902-2 #### HIWOT Patterson ([id number]) [facility] ([facility]) [address] [place] [address] 45523 Proteinon 01-07-2024 Protein Qn (U) 16 mg/dL Normal 5-24 [facility] Comment on above: Order Comment: [facility] Research participant; insurance: Research Diagnosis code Z00.6 Award: [id number] IRB #: [id number] Performed By: #### 2 7298-9 #### HIWOT Patterson ([id number]) [facility] ([facility]) [address] [place] [address] 12445 Protein Qn (U)on 01-07-2024 Creatinine (U) [Mass/Vol] 145.0 mg/dL Normal 20.0-320.0 [facility] Comment on above: Order Comment: [facility] Research participant; insurance: Research Diagnosis code Z00.6 Award: [id number] IRB #: [id number] Performed By: #### 2 7298-9 #### HIWOT Patterson (32997) [facility] ([facility]) [address] [place] [address] 20260 Protein/Creatinine (U) [Mass ratio] 0.11 mg/mg Creat Normal 0.00-0.17 [facility] Comment on above: Order Comment: [facility] Research participant; insurance: Research Diagnosis code Z00.6 Award: [id number] IRB #: [id number] Performed By: #### 2 7298-9 #### HIWOT Patterson ([id number]) [facility] ([facility]) [address] [place] [address] 56432 Thyrotropinon 01-07-2024 TSH Qn 1.00 m[IU]/L Normal 0.44-3.98 [facility] Comment on above: Order Comment: [facility] Research participant; insurance: Research Diagnosis code Z00.6 Award: [id number] IRB #: [id number] Performed By: #### 2 7298-9 #### HIWOT Patterson ([id number]) [facility] ([facility]) [address] [place] [address] 93181 Thyroxine.freeon 01-07-2024 Free T4 [Mass/Vol] 1.65 ng/dL High 0.78-1.48 [facility] Comment on above: Order Comment: [facility] participant; insurance: Research Diagnosis code Z00.6 Award: [id number] IRB #: [id number] Performed By: #### 2 7298-9 #### HIWOT Patterson ([id number]) [facility] ([facility]) [address] [place], [place] [address] Troponin I.cardiac panelon 0 01-07-2024 Tropinin I.cardiac panel High sensitivity method 17 ng/L Normal 0-34 [facility] Comment on above: Order Comment: [facility] Research participant; insurance: Research Diagnosis code Z00.6 Award: [id number] IRB #: [id number] Less than 99th percentile of normal range [...] performed using a different testing methodology at [facility] than at other [facility]. Direct result comparisons should only be made within the same method. Performed By: #### 8 9577-1 #### HIWOT Patterson (39146) [facility] ([facility]) [address] [place] [address] 53272 Urinalysis complete panel (U )on 01-07-2024 Appearance (U) Clear Normal Clear [facility] Comment on above: Order Comment: [facility] Research participant; insurance: Research Diagnosis code Z00.6 Award: [id number] IRB #: [id number] Performed By: #### 2 4356-8 #### HIWOT Patterson ([id number]) [facility] ([facility]) [address] [place] [address] 04460 Bilirubin (U) [Mass/Vol] Negative Normal NEGATIVE [facility] Comment on above: Order Comment: [facility] Research participant; insurance: Research Diagnosis code Z00.6 Award: [id number] IRB #: [id number] Performed By: #### 2 4356-8 #### HIWOT Patterson (32879) [facility] ([facility]) [address] [place] [address] 29604 Color (U) Yellow Normal Light-Yellow , Yellow, Dark-Yellow [facility] Comment on above: Order Comment: [facility] Research participant; insurance: Research Diagnosis code Z00.6 Award: [id number] IRB #: [id number] Performed By: #### 2 4356-8 #### HIWOT Patterson (51652) [facility] ([facility]) [address] [place] [address] 94046 Glucose Auto test strip (U) [Mass/Vol] Normal Normal Normal [facility] Comment on above: Order Comment: [facility] Research participant; insurance: Research Diagnosis code Z00.6 Award: [id number] IRB #: [id number] Performed By: #### 2 4356-8 #### HIWOT Patterson ([id number]) [facility] ([facility]) [address] [place] [address] 73349 Ketones (U) [Mass/Vol] Negative Normal NEGATIVE [facility] on above: Order Comment: [facility] Research participant; insurance: Research Diagnosis code Z00.6 Award: [id number] IRB #: [id number] Performed By: #### 2 4356-8 #### HIWOT Patterson (78054) [facility] ([facility]) [address] [place] [address] 73541 Leukocyte esterase Auto test strip Ql (U) 250 Laly/???L Abnormal NEGATIVE [facility] Comment on above: Order Comment: [facility] Research participant; insurance: Research Diagnosis code Z00.6 Award: [id number] IRB #: [id number] Performed By: #### 2 4356-8 #### HIWOT Patterson ([id number]) [facility] ([facility]) [address] [place] [address] 69826 Nitrite Auto test strip Ql (U) Negative Normal NEGATIVE [facility] Comment on above: Order Comment: [facility] Research participant; insurance: Research Diagnosis code Z00.6 Award: [id number] IRB #: [id number] Performed By: #### 2 4356-8 #### HIWOT Patterson ([id number]) [facility] ([facility]) [address] [place] [address] 19839 pH (U) 7.0 [pH] Normal 5.0, 5.5, 6.0, 6.5, 7.0, 7.5, 8.0 [facility] Comment on above: Order Comment: [facility] Research participant; insurance: Research Diagnosis code Z00.6 Award: [id number] IRB #: [id number] Performed By: #### 2 4356-8 #### HIWOT Patterson ([id number]) [facility] ([facility]) [address] [place] [address] 59515 Protein (U) [Mass/Vol] 10 (TRACE) Normal NEGAT ZACKARY, 10 (TRACE), 20 (TRACE) [facility] Comment on above: Order Comment: [facility] Research participant; insurance: Research Diagnosis code Z00.6 Award: [id number] IRB #: [id number] Performed By: #### 2 4356-8 #### HIWOT Patterson (30959) [facility] ([facility]) [address] [place] [address] 00168 RBC (U) [#/Vol] Negative Normal NEGATIVE [facility] Comment on above: Order Comment: [facility] Research participant; insurance: Research Diagnosis code Z00.6 Award: [id number] IRB #: [id number] Performed By: #### 2 4356-8 #### HIWOT Patterson (07578) [facility] ([facility]) [address] [place], [place] [address] Specific gravity (U) [Rel density] 1.023 Normal 1.005-1.035 [facility] Comment on above: Order Comment: [facility] Research participant; insurance: Research Diagnosis code Z00.6 Award: [id number] IRB #: [id number] Performed By: #### 2 4356-8 #### HIWOT Patterson (76446) [facility] ([facility]) [address] [place], [place] [address] Urobilinogen (U) [Mass/Vol] Normal Normal Normal [facility] Comment on above: Order Comment: [facility] Research participant; insurance: Research Diagnosis code Z00.6 Award: [id number] IRB #: [id number] Performed By: #### 2 4356-8 #### HIWOT Patterson ([id number]) [facility] ([facility]) [address] [place], [place] [address] Urinalysis microscopic panel Auto Ql (U)on 01-07-2024 Epithelial cells.squamous Auto (Urine sed) [#/Area] 1-9 (SPARSE) Normal Reference range not established. [facility] Comment on above: Order Comment: [facility] Research participant; insurance: Research Diagnosis code Z00.6 Award: [id number] IRB #: [id number] Performed By: #### 5 3315-8 #### HIWOT Patterson (53850) [facility] ([facility]) [address] [place] [address] 86321 Mucus Auto (Urine sed) [#/Area] FEW Normal Reference range not established. [facility] Comment on above: Order Comment: [facility] Research participant; insurance: Research Diagnosis code Z00.6 Award: [id number] IRB #: [id number] Performed By: #### 5 3315-8 #### HIWOT Patterson (10947) [facility] ([facility]) [address] [place], [place] [address] RBC Auto (Urine sed) [#/Area] 3-5 Normal NONE, 1-2, 3-5 [facility] Comment on above: Order Comment: [facility] Research participant; insurance: Research Diagnosis code Z00.6 Award: [id number] IRB #: [id number] Performed By: #### 5 3315-8 #### HIWOT Patterson (76296) [facility] ([facility]) [address] [place] [address] WBC Auto (Urine sed) [#/Area] 1-5 Normal 1-5, NONE [facility] Comment on above: Order Comment: [facility] Research participant; insurance: Research Diagnosis code Z00.6 Award: [id number] IRB #: [id number] Performed By: #### 5 3315-8 #### HIWOT Patterson (37266) [facility] ([facility]) [address] [place] [address] Absolute lymphocyte countOrd ered By: Joseph Smyth on 07-29-2023 Lymphocytes Auto (Unsp spec) [#/Vol] 2.44 10*3/uL 0.83-4.51 [facility] Automated lymphocyte count a s percentage of total leukocytesOrdered By: Joseph Smyth on 07-29-2023 Lymphocytes/100 WBC Auto (Unsp spec) 35.4 % 19-41 [facility] Basophil percentageOrdered B y: Joseph Smyth on 07-29-2023 Basophils/100 WBC (Bld) 0.7 % 0-1 [facility] Chloride [Moles/Vol] 107 mmol/L 98-107 [facility] Eosinophils/100 WBC (Bld) 3.6 % 0-5 [facility] Glucose [Mass/Vol] 156 mg/dL 74-106 [facility] Comment on above: Fasting Glucose resu lt greater than or equal to 126 mg/dL suggests DIABETES MELLITUS per A.D.A. criteria. Hemoglobin (Bld) [Mass/Vol] 13.1 g/dL 12.0-15.0 [facility] Monocytes/100 WBC (Bld) 8.1 % 0-10 [facility] Neutrophils (Bld) [#/Vol] 3.6 10*3/uL 2.0-7.7 [facility] Neutrophils/100 WBC (Bld) 51.9 % 47-70 [facility] Potassium [Moles/Vol] 3.8 mmol/L 3.5-5.1 [facility] Sodium [Moles/Vol] 139 mmol/L 136-145 [facility] WBC (Bld) [#/Vol] 6.9 10*3/uL 4.4-11.0 [facility] Determination of erythrocyte mean corpuscular volume (MCV)Ordered By: Joseph Smyth on 07-29-2023 MCV (RBC) [Entitic vol] 90.5 fL 81-99 [facility] Erythrocyte distribution wid th ratioOrdered By: Joseph Smyth on 07-29-2023 Erythrocyte distribution width (RBC) [Ratio] 13.3 % 11.6-14.6 [facility] Erythrocyte distribution wid th standard deviationOrdered By: Joseph Smyth on 07-29-2023 Erythrocyte distribution width (RBC) [Entitic vol] 44.3 fL 35.1-43.9 [facility] Hematocrit Auto (Bld) [Volum e fraction]Ordered By: Joseph Smyth on 07-29-2023 Hematocrit (Bld) [Volume fraction] 39.8 % 37-47 [facility] Immature granulocytes/100 WB C Auto (Bld)Ordered By: Joseph Smyth on 07-29-2023 Immature granulocytes/100 WBC (Bld) 0.300 % 0.0-0.9 [facility] Comment on above: IG% - Immature Granu locytes (promyelocytes, myelocytes and metamyelocytes) > 1% indicates that a LEFT SHIFT is Present. Laboratory - Chemistry and C hemistry - challengeOrdered By: Joseph Smyth on 07-29-2023 CO2 [Moles/Vol] 25.0 mmol/L 21.0-32.0 [facility] Urea nitrogen/Creatinine [Mass ratio] 13.9 mg/mg 10-20 [facility] Laboratory - Hematology and Cell countsOrdered By: Joseph Smyth on 07-29-2023 MCH (RBC) [Entitic mass] 29.8 pg 27.0-32.0 [facility] MCHC (RBC) [Mass/Vol] 32.9 g/dL 32-36 [facility] Nucleated RBC/100 WBC (Bld) [Ratio] 0 % 0-5 [facility] Platelet mean volume (Bld) [Entitic vol] 9.8 fL 6.2-12.0 [facility] Platelets (Bld) [#/Vol] 323 10*3/uL 150-450 [facility] No Panel InformationOrdered By: Joseph Smyth on 07-29-2023 Estimated GFR (MDRD) Amer 76 mL/min >60 [facility] Comment on above: GFR Calc Estimated GFR (MDRD) Non-Af Amer 63 mL/min >60 [facility] Comment on above: Non- GFR Calc RBC Auto (Bld) [#/Vol]Ordere d By: Joseph Smyth on 07-29-2023 RBC (Bld) [#/Vol] 4.40 10*6/uL 4.2-5.4 [facility] Serum or plasma calcium david urement (mass/volume)Ordered By: Joseph Smyth on 07-29-2023 Calcium [Mass/Vol] 9.1 mg/dL 8.5-10.1 [facility] Serum or plasma creatinine m easurement (mass/volume)Ordered By: Joseph Smyth on 07-29-2023 Creatinine [Mass/Vol] 0.94 mg/dL 0.55-1.02 [facility] Comment on above: The validity of the calculated GFR & GFRAA in patients over 70 years has not been determined. Clinical correlation is essential. Serum or plasma thyroid stim ulating hormone (TSH) measurement (units/volume)Ordered By: Joseph Smyth on 07-29-2023 TSH Qn 0.93 uIU/mL 0.358-3.74 [facility] Serum or plasma urea nitroge n measurement (mass/volume)Ordered By: Joseph Smyth on 07-29-2023 Urea nitrogen [Mass/Vol] 13 mg/dL 7-18 [facility] Thin prep Papanicolaou smear with manual screeningOrdered By: Joseph Smyth on 07-29-2023 Thin prep Papanicolaou smear with manual screening 7 5-15 [facility] Whole blood hemoglobin A1c/t otal hemoglobin ratio (mass fraction)Ordered By: Joseph Smyth on 07-29-2023 HbA1c (Bld) [Mass fraction] 6.0 % 3.8-5.6 [facility] Comment on above: Normal < 5.7 % Predi abetic 5.7 - 6.4 % Diabetic >or= 6.5 % Please note range changes. No Panel InformationOrdered By: Brant Langley on 07-01-2023 CA 19-9 Antigen 4 U/mL 0-35 [facility] Comment on above: [employer] El ectrochemiluminescence Immunoassay(ECLIA)Values obtained with different assay methods or kits cannotbe used interchangeably. Results cannot be interpreted asabsolute evidence of the presence or absence of malignantdisease.Performed at: [facility] [id number] Director: Ronald Gonzalez PhD, Phone: [phone] Serum or plasma carcinoembry onic antigen measurement (mass/volume)Ordered By: Brant Langley on 07-01-2023 Carcinoembryonic Ag [Mass/Vol] 1.0 ng/mL 0.0-4.7 [facility] Comment on above: Nonsmokers <3.9 Smok ers <5.6[facility] [employer] Electrochemiluminescence Immunoassay(ECLIA)Values obtained with different assay methods or kitscannot be used interchangeably. Results cannot beinterpreted as absolute evidence of the presence orabsence of malignant disease. Basophil percentageOrdered B y: Joseph Smyth on 05-19-2023 Chloride [Moles/Vol] 105 mmol/L 98-107 [facility] Glucose [Mass/Vol] 109 mg/dL 74-106 [facility] Comment on above: Fasting Glucose resu lt from 100 to 125 mg/dL suggests IMPAIRED HOMEOSTASIS per A.D.A. criteria. Potassium [Moles/Vol] 3.8 mmol/L 3.5-5.1 [facility] Sodium [Moles/Vol] 137 mmol/L 136-145 [facility] Laboratory - Chemistry and C hemistry - challengeOrdered By: Joseph Smyth on 05-19-2023 CO2 [Moles/Vol] 28.0 mmol/L 21.0-32.0 [facility] Urea nitrogen/Creatinine [Mass ratio] 17.2 mg/mg 10-20 [facility] No Panel InformationOrdered By: Joseph Smyth on 05-19-2023 Estimated GFR (MDRD) Amer 77 mL/min >60 [facility] Comment on above: GFR Calc Estimated GFR (MDRD) Non-Af Amer 64 mL/min >60 [facility] Comment on above: Non- GFR Calc Serum or plasma calcium david urement (mass/volume)Ordered By: Joseph Smyth on 05-19-2023 Calcium [Mass/Vol] 8.8 mg/dL 8.5-10.1 [facility] Serum or plasma creatinine m easurement (mass/volume)Ordered By: Joseph Smyth on 05-19-2023 Creatinine [Mass/Vol] 0.93 mg/dL 0.55-1.02 [facility] Comment on above: The validity of the calculated GFR & GFRAA in patients over 70 years has not been determined. Clinical correlation is essential. Serum or plasma urea nitroge n measurement (mass/volume)Ordered By: Joseph Smyth on 05-19-2023 Urea nitrogen [Mass/Vol] 16 mg/dL 7-18 [facility] Thin prep Papanicolaou smear with manual screeningOrdered By: Joseph Smyth on 05-19-2023 Thin prep Papanicolaou smear with manual screening 4 5-15 [facility] No Panel InformationOrdered By: Jospeh Smyth on 04-21-2023 Thyroid Stimulating Hormone (TSH) 1.40 uIU/mL 0.358-3.74 [facility] Absolute lymphocyte countOrd ered By: Brant Langley on 03-09-2023 Lymphocytes Auto (Unsp spec) [#/Vol] 4.30 10*3/uL 0.83-4.51 [facility] Basophil percentageOrdered B y: Brant Langley on 03-09-2023 Amylase [Catalytic activity/Vol] 40 U/L 25-115 [facility] Basophils/100 WBC (Bld) 0.9 % 0-1 [facility] Bilirubin [Mass/Vol] 0.50 mg/dL 0.20-1.00 [facility] Comment on above: For patients on eltr ombopag therapy, use of Dimension [place] TBIL is not recommended. Chloride [Moles/Vol] 98 mmol/L 98-107 [facility] Eosinophils/100 WBC (Bld) 2.2 % 0-5 [facility] Glucose [Mass/Vol] 147 mg/dL 74-106 [facility] Comment on above: Fasting Glucose resu lt greater than or equal to 126 mg/dL suggests DIABETES MELLITUS per A.D.A. criteria. Neutrophils (Bld) [#/Vol] 5.3 10*3/uL 2.0-7.7 [facility] Neutrophils/100 WBC (Bld) 47.5 % 47-70 [facility] Potassium [Moles/Vol] 3.2 mmol/L 3.5-5.1 [facility] Protein [Mass/Vol] 8.1 g/dL 6.4-8.2 [facility] Sodium [Moles/Vol] 136 mmol/L 136-145 [facility] WBC (Bld) [#/Vol] 11.0 10*3/uL 4.4-11.0 [facility] Blood erythrocytes count (nu mber/volume)Ordered By: Brant Langley on 03-09-2023 RBC (Bld) [#/Vol] 4.83 10*6/uL 4.2-5.4 [facility] Blood hemoglobin measurement (mass/volume)Ordered By: Brant Langley on 03-09-2023 Hemoglobin (Bld) [Mass/Vol] 14.3 g/dL 12.0-15.0 [facility] Blood lymphocytes/100 leukoc ytesOrdered By: Brant Langley on 03-09-2023 Lymphocytes/100 WBC (Bld) 39.0 % 19-41 [facility] Blood monocytes/100 leukocyt esOrdered By: Brant Langley on 03-09-2023 Monocytes/100 WBC (Bld) 10.0 % 0-10 [facility] Blood platelet mean volumeOr dered By: Brant Langley on 03-09-2023 Platelet mean volume (Bld) [Entitic vol] 9.7 fL 6.2-12.0 [facility] Determination of erythrocyte mean corpuscular volume (MCV)Ordered By: Brant Langley on 03-09-2023 MCV (RBC) [Entitic vol] 89.6 fL 81-99 [facility] Hematocrit Auto (Bld) [Volum e fraction]Ordered By: Brant Langley on 03-09-2023 Hematocrit (Bld) [Volume fraction] 43.3 % 37-47 [facility] Laboratory - Chemistry and C hemistry - challengeOrdered By: Brant Langley on 03-09-2023 ALP [Catalytic activity/Vol] 112 U/L 45-117 [facility] ALT [Catalytic activity/Vol] 26 U/L 13-56 [facility] CO2 [Moles/Vol] 30.0 mmol/L 21.0-32.0 [facility] Globulin (S) [Mass/Vol] 4.4 g/dL 2.2-4.2 [facility] Lipase [Catalytic activity/Vol] 36 U/L 13-75 [facility] Comment on above: Please note:LIPASE r evised reference range effective 22. New Lipase methodology. Expected to produce lower values than the previous assay method. NEW Reference Range: 13 - 75 U/L Urea nitrogen/Creatinine [Mass ratio] 13.4 mg/mg 10-20 [facility] Laboratory - Hematology and Cell countsOrdered By: Brant Langley on 03-09-2023 Erythrocyte distribution width (RBC) [Entitic vol] 41.4 fL 35.1-43.9 [facility] Erythrocyte distribution width (RBC) [Ratio] 12.6 % 11.6-14.6 [facility] Immature granulocytes/100 WBC (Bld) 0.400 % 0.0-0.9 [facility] Comment on above: IG% - Immature Granu locytes (promyelocytes, myelocytes and metamyelocytes) > 1% indicates that a LEFT SHIFT is Present. MCH (RBC) [Entitic mass] 29.6 pg 27.0-32.0 [facility] Nucleated RBC/100 WBC (Bld) [Ratio] 0 % [facility]5 [facility] [Mass/Vol]Or dered By: Brant Langley on 03-09-2023 MCHC (RBC) [Mass/Vol] 33.0 g/dL 32-36 [facility] No Panel InformationOrdered By: Brant Langley on 03-09-2023 Estimated GFR (MDRD) Amer 58 mL/min >60 [facility] Comment on above: GFR Calc Estimated GFR (MDRD) Non-Af Amer 48 mL/min >60 [facility] Comment on above: Non- GFR Calc Platelets bldOrdered By: Bora Langley on 03-09-2023 Platelets (Bld) [#/Vol] 389 10*3/uL 150-450 [facility] Serum or plasma albumin david urement (mass/volume)Ordered By: Brant Langley on 03-09-2023 Albumin [Mass/Vol] 3.7 g/dL 3.2-5.0 [facility] Serum or plasma albumin/glob ulin mass ratioOrdered By: Brant Langley on 03-09-2023 Albumin/Globulin [Mass ratio] 0.8 {ratio} 0.9-2.4 [facility] Serum or plasma calcium david urement (mass/volume)Ordered By: Brant Langley on 03-09-2023 Calcium [Mass/Vol] 9.4 mg/dL 8.5-10.1 [facility] Serum or plasma creatinine m easurement (mass/volume)Ordered By: Brant Langley on 03-09-2023 Creatinine [Mass/Vol] 1.19 mg/dL 0.55-1.02 [facility] Comment on above: The validity of the calculated GFR & GFRAA in patients over 70 years has not been determined. Clinical correlation is essential. Serum or plasma urea nitroge n measurement (mass/volume)Ordered By: Brant Langley on 03-09-2023 Urea nitrogen [Mass/Vol] 16 mg/dL 7-18 [facility] Thin prep Papanicolaou smear with manual screeningOrdered By: Brant Langley on 03-09-2023 Thin prep Papanicolaou smear with manual screening 19 U/L 15-37 [facility] Thin prep Papanicolaou smear with manual screening 8 5-15 [facility] Basophil percentageOrdered B y: Joseph Smyth on 02-27-2023 Basophil percentage 10-25 SEEN /hpf 0-5 [facility] Bilirubin Test strip Ql (U)O rdered By: Joseph Smyth on 02-27-2023 Bilirubin Ql (U) Negative Negative [facility] Ketones Test strip Ql (U)Ord ered By: Joseph Smyth on 02-27-2023 Ketones Ql (U) Negative Negative [facility] Laboratory - Hematology and Cell countson 02-27-2023 HbA1c (Bld) [Mass fraction] 6.0 % 4.2-6.3 [facility] Mucus LM Ql (Urine sed)Order ed By: Joseph Smyth on 02-27-2023 Mucus Ql (Urine sed) 0 SEEN /hpf [facility] Nitrite Test strip Ql (U)Ord ered By: Joseph Smyth on 02-27-2023 Nitrite Ql (U) Negative Negative [facility] Protein Test strip Ql (U)Ord ered By: Joseph Smyth on 02-27-2023 Protein Ql (U) Negative Negative [facility] Squamous epithelial cells de tection in urine sediment by light microscopyOrdered By: Joseph Smyth on 02-27-2023 Epithelial cells.squamous LM Ql (Urine sed) 0-5 SEEN /hpf 5-10 [facility] Urine blood detectionOrdered By: Joseph Smyth on 02-27-2023 RBC Ql (U) Negative Negative [facility] RBC Ql (U) 0 SEEN /hpf 0-5 [facility] Urine clarityOrdered By: Lake Smyth on 02-27-2023 Clarity (U) Sl. Cloudy Clear [facility] Urine color determinationOrd ered By: Joseph Smyth on 02-27-2023 Color (U) Yellow Yellow [facility] Urine glucose detectionOrder ed By: Joseph Smyth on 02-27-2023 Glucose Ql (U) Normal mg/dl Normal [facility] Urine leukocyte esterase det ection by dipstickOrdered By: Joseph Smyth on 02-27-2023 Leukocyte esterase Test strip Ql (U) 100 /ul Negative [facility] Urine pHOrdered By: Yolie Smyth on 02-27-2023 pH (U) 5.0 [pH] 5.0 - 8.0 [facility] Urine sediment bacteria coun t by microscopy (number/high power field)Ordered By: Joseph Smyth on 02-27-2023 Bacteria LM.HPF (Urine sed) [#/Area] 0 /[HPF] None Seen [facility] Urine specific gravity measu rementOrdered By: Joseph Smyth on 02-27-2023 Specific gravity (U) [Rel density] 1.020 1.002-1.030 [facility] Urobilinogen Auto test strip Ql (U)Ordered By: Joseph Smyth on 02-27-2023 Urobilinogen Ql (U) Normal mg/dl Normal [facility] Absolute lymphocyte countOrd ered By: Rafael Bradford on 02-20-2023 Lymphocytes Auto (Unsp spec) [#/Vol] 2.77 10*3/uL 0.83-4.51 [facility] Basophil percentageOrdered B y: Rafael Bradford on 02-20-2023 Basophils/100 WBC (Bld) 0.6 % 0-1 [facility] Bilirubin [Mass/Vol] 0.40 mg/dL 0.20-1.00 [facility] Comment on above: For patients on eltr ombopag therapy, use of Dimension [place] TBIL is not recommended. Chloride [Moles/Vol] 103 mmol/L 98-107 [facility] Eosinophils/100 WBC (Bld) 2.6 % 0-5 [facility] Glucose [Mass/Vol] 110 mg/dL 74-106 [facility] Comment on above: Fasting Glucose resu lt from 100 to 125 mg/dL suggests IMPAIRED HOMEOSTASIS per A.D.A. criteria. Neutrophils (Bld) [#/Vol] 6.1 10*3/uL 2.0-7.7 [facility] Neutrophils/100 WBC (Bld) 59.5 % 47-70 [facility] Potassium [Moles/Vol] 3.8 mmol/L 3.5-5.1 [facility] Protein [Mass/Vol] 7.9 g/dL 6.4-8.2 [facility] Sodium [Moles/Vol] 135 mmol/L 136-145 [facility] WBC (Bld) [#/Vol] 10.2 10*3/uL 4.4-11.0 [facility] Blood erythrocytes count (nu mber/volume)Ordered By: Rafael Bradford on 02-20-2023 RBC (Bld) [#/Vol] 4.73 10*6/uL 4.2-5.4 [facility] Blood hemoglobin measurement (mass/volume)Ordered By: Rafael Bradford on 02-20-2023 Hemoglobin (Bld) [Mass/Vol] 14.3 g/dL 12.0-15.0 [facility] Blood lymphocytes/100 leukoc ytesOrdered By: Rafael Bradford on 02-20-2023 Lymphocytes/100 WBC (Bld) 27.3 % 19-41 [facility] Blood monocytes/100 leukocyt esOrdered By: Rafael Bradford on 02-20-2023 Monocytes/100 WBC (Bld) 9.7 % 0-10 [facility] Blood platelet mean volumeOr dered By: Rafael Bradford on 02-20-2023 Platelet mean volume (Bld) [Entitic vol] 9.3 fL 6.2-12.0 [facility] Determination of erythrocyte mean corpuscular volume (MCV)Ordered By: Rafael Bradford on 02-20-2023 MCV (RBC) [Entitic vol] 88.6 fL 81-99 [facility] Hematocrit Auto (Bld) [Volum e fraction]Ordered By: Rafael Bradford on 02-20-2023 Hematocrit (Bld) [Volume fraction] 41.9 % 37-47 [facility] Laboratory - Chemistry and C hemistry - challengeOrdered By: Rafael Bradford on 02-20-2023 ALP [Catalytic activity/Vol] 125 U/L 45-117 [facility] ALT [Catalytic activity/Vol] 30 U/L 13-56 [facility] CO2 [Moles/Vol] 29.0 mmol/L 21.0-32.0 [facility] Globulin (S) [Mass/Vol] 4.5 g/dL 2.2-4.2 [facility] Urea nitrogen/Creatinine [Mass ratio] 17.7 mg/mg 10-20 [facility] Laboratory - Hematology and Cell countsOrdered By: Rafael Bradford on 02-20-2023 Erythrocyte distribution width (RBC) [Entitic vol] 41.4 fL 35.1-43.9 [facility] Erythrocyte distribution width (RBC) [Ratio] 12.7 % 11.6-14.6 [facility] Immature granulocytes/100 WBC (Bld) 0.300 % 0.0-0.9 [facility] Comment on above: IG% - Immature Granu locytes (promyelocytes, myelocytes and metamyelocytes) > 1% indicates that a LEFT SHIFT is Present. MCH (RBC) [Entitic mass] 30.2 pg 27.0-32.0 [facility] Nucleated RBC/100 WBC (Bld) [Ratio] 0 % 0-5 [facility] MCHC Auto (RBC) [Mass/Vol]Or dered By: Rafael Bradford on 02-20-2023 MCHC (RBC) [Mass/Vol] 34.1 g/dL 32-36 [facility] No Panel InformationOrdered By: Rafael Bradford on 02-20-2023 Estimated Creatinine Clearance Calc 58.99 ml/min [facility] Estimated GFR (MDRD) Amer 80 mL/min >60 [facility] Comment on above: GFR Calc Estimated GFR (MDRD) Non-Af Amer 66 mL/min >60 [facility] Comment on above: Non- GFR Calc Thyroid Stimulating Hormone (TSH) 0.18 uIU/mL 0.358-3.74 [facility] Platelets bldOrdered By: Blaise Bradford on 02-20-2023 Platelets (Bld) [#/Vol] 316 10*3/uL 150-450 [facility] Serum or plasma albumin david urement (mass/volume)Ordered By: Rafael Bradford on 02-20-2023 Albumin [Mass/Vol] 3.4 g/dL 3.2-5.0 [facility] Serum or plasma albumin/glob ulin mass ratioOrdered By: Rafael Bradford on 02-20-2023 Albumin/Globulin [Mass ratio] 0.8 {ratio} 0.9-2.4 [facility] Serum or plasma calcium david urement (mass/volume)Ordered By: Rafael Bradford on 02-20-2023 Calcium [Mass/Vol] 9.3 mg/dL 8.5-10.1 [facility] Serum or plasma creatinine m easurement (mass/volume)Ordered By: Rafael Bradford on 02-20-2023 Creatinine [Mass/Vol] 0.90 mg/dL 0.55-1.02 [facility] Comment on above: The validity of the calculated GFR & GFRAA in patients over 70 years has not been determined. Clinical correlation is essential. Serum or plasma urea nitroge n measurement (mass/volume)Ordered By: Rafael Bradford on 02-20-2023 Urea nitrogen [Mass/Vol] 16 mg/dL 7-18 [facility] Thin prep Papanicolaou smear with manual screeningOrdered By: Rafael Bradford on 02-20-2023 Thin prep Papanicolaou smear with manual screening 21 U/L 15-37 [facility] Thin prep Papanicolaou smear with manual screening 3 5-15 [facility] No Panel InformationOrdered By: Joseph Smyth on 12-22-2022 Thyroid Stimulating Hormone (TSH) 0.36 uIU/mL 0.358-3.74 [facility] No Panel InformationOrdered By: Brant Langley on 12-04-2022 Stool Calprotectin 68 ug/g 0-120 [facility] Comment on above: Concentration Interp retation Follow-Up< 5 - 50 ug/g Normal None>50 -120 ug/g Borderline Re-evaluate in 4-6 weeks >120 ug/g Abnormal Repeat as clinically indicatedPerformed at: [facility] [address] [id number] Director: Ashu Dey MD, Phone: [phone] Stool lactoferrin detection by immunoassayOrdered By: Brant Langley on 12-04-2022 Lactoferrin IA Ql (Stl) [facility] Lactoferrin IA Ql (Stl) [facility] Albumin Elph [Mass/Vol]Order ed By: Brant Langley on 11-28-2022 Albumin [Mass/Vol] 3.7 g/dL 2.9-4.4 [facility] Atypical perinuclear antineu trophil cytoplasmic antibodies measurementOrdered By: Brant Langley on 11-28-2022 Neutrophil cytoplasmic Ab.perinuclear.atypical IF (S) [Titer] <1:20 titer Neg:<1:20 [facility] Comment on above: The atypical pANCA p attern has been observed in asignificant percentage of patients with ulcerative colitis,primary sclerosing cholangitis and autoimmune hepatitis. Basophil percentageOrdered B y: Brant Langley on 11-28-2022 Basophil percentage < 0.2 AI 0.0-0.9 [facility] LDH [Catalytic activity/Vol] 197 U/L 84-246 [facility] Erythrocyte sedimentation ra teOrdered By: Brant Langley on 11-28-2022 ESR (Bld) [Velocity] 22 mm/h 0-30 [facility] Interpretation of serum or p lasma protein pattern by immunofixation (narrative resultOrdered By: Brant Langley on 11-28-2022 Protein Fractions Immunofixation Joshua [Interp] See comment [facility] Comment on above: NOT OBSERVED Laboratory - Miscellaneous t estsOrdered By: Brant Langley on 11-28-2022 Service comment (Unsp spec) [Interp] Comment . [facility] Comment on above: Levels of Specific I gE Class Description of Class ----- < 0.10 0 Negative 0.10 - 0.31 0/I Equivocal/Low 0.32 - 0.55 I Low 0.56 - 1.40 II Moderate 1.41 - 3.90 III High 3.91 - 19.00 IV Very High 19.01 - 100.00 V Very High >100.00 [facility] No Panel InformationOrdered By: Brant Langley on 11-28-2022 Addendum Document Comment . [facility] Comment on above: Protein electrophore sis scan will follow via computer,mail, or meat dresser delivery. [employer] B Antibody <0.2 AI 0.0-0.9 [facility] Endomysial IgA Antibody Negative Negative [facility] Immunoglobulin E 225 IU/mL 6-495 [facility] Comment on above: Performed at: [facility] [address] [id number] Director: Ronald Gonzalez PhD, Phone: [phone] at: [facility] [id number] Director: Ashu Dey MD, Phone: [phone] Miscellaneous Test See comment [facility] Comment on above: TEST RESULT LIMITSCh romogranin A, 35.7 ng/mL 0.0-101.8Chromogranin A performed by [employer] methodologyValues obtained with different assay methods or kits cannot be used interchangeably. TESTING PERFORMED AT [facility]. ORIGINAL REPORT ON FILE IN LAB CONTAINS ADDITIONAL TEST SITE INFORMATION. RELIEF PILOT Antibody <0.2 AI 0.0-0.9 [facility] Scallop Allergen <0.10 kU/L Class 0 [facility] Sesame Seed Allergen IgE Antibody <0.10 kU/L Class 0 [facility] Comment on above: Performed at: [facility] [address] [id number] Director: Ronald Gonzalez PhD, Phone: [phone] at: [facility] [id number] Director: Ashu Dey MD, Phone: [phone] Shrimp Allergen 1.64 kU/L Class III [facility] No Panel InformationOrdered By: Dr. Smyth on 11-28-2022 Thyroid Stimulating Hormone (TSH) 2.59 uIU/mL 0.358-3.74 [facility] Serum DNA double strand anti body assay (units/volume)Ordered By: Brant Langley on 11-28-2022 DNA double strand Ab Qn (S) 1 [IU]/mL 0-9 [facility] Comment on above: Negative <5 Equivoca l 5 - 9 Positive >9 Serum IgA measurement (units /volume)Ordered By: Brant Langley on 11-28-2022 IgA Qn (S) 209 mg/dL 87-352 [facility] Comment on above: Performed at: [employer] [facility] [employer] [address] [id number] Director: Ronald Gonzalez PhD, Phone: [phone] Serum Sandy-1 antibody assay (u nits/volume)Ordered By: Brant Langley on 11-28-2022 Sandy-1 extractable nuclear Ab Qn (S) <0.2 AI 0.0-0.9 [facility] Serum Scl-70 extractable nuc lear antibody assay (units/volume)Ordered By: Brant Langley on 11-28-2022 SCL-70 extractable nuclear Ab Qn (S) <0.2 AI 0.0-0.9 [facility] Serum Horne extractable nucl ear antibody detectionOrdered By: Brant Langley on 11-28-2022 Horne extractable nuclear Ab Ql (S) <0.2 AI 0.0-0.9 [facility] Serum [id number] measu rement by electrophoresisOrdered By: Brant Langley on 11-28-2022 Alpha 1 globulin Elph [Mass/Vol] 0.2 g/dL 0.0-0.4 [facility] Alpha 1 globulin Elph [Mass/Vol] 1.0 g/dL 0.4-1.0 [facility] Serum black walnut IgE antib june assay (units/volume)Ordered By: Brant Langley on 11-28-2022 Black [place] IgE Qn (S) <0.10 kU/L Class 0 [facility] [facility] Serum clam IgE antibody assa y (units/volume)Ordered By: Brant Langley on 11-28-2022 Clam IgE Qn (S) <0.10 kU/L Class 0 [facility] Serum classic neutrophil cyt oplasmic antibody assay (units/volume)Ordered By: Brant Langley on 11-28-2022 Neutrophil cytoplasmic Ab.classic Qn (S) <1:20 titer Neg:<1:20 [facility] Serum codfish IgE antibody a ssay (units/volume)Ordered By: Brant Langley on 11-28-2022 Codfish IgE Qn (S) <0.10 kU/L Class 0 [facility] [place] IgE antibody assa y (units/volume)Ordered By: Brant Langley on 11-28-2022 [place] IgE Qn (S) <0.10 kU/L Class 0 [facility] Serum cow milk IgE antibody assay (units/volume)Ordered By: Brant Langley on 11-28-2022 Cow milk IgE Qn (S) <0.10 kU/L Class 0 [facility] Serum egg white IgE antibody assay (units/volume)Ordered By: Brant Langley on 11-28-2022 Egg white IgE Qn (S) <0.10 kU/L Class 0 [facility] Serum globulin measurement ( mass/volume)Ordered By: Brant Langley on 11-28-2022 Globulin (S) [Mass/Vol] 3.7 g/dL 2.2-3.9 [facility] Serum or plasma C reactive p rotein measurement (mass/volume)Ordered By: Brant Langley on 11-28-2022 CRP [Mass/Vol] 5.44 mg/L 0.0-3.0 [facility] Comment on above: C-Reactive Protein ( CRP) provides useful information for thediagnosis, therapy and monitoring of inflammatory processesand associated diseases. For the evaluation of Relative Riskfor Cardiovascular Disease, a High Sensitivity CRP (HSCRP)should be ordered. Serum or plasma IgA measurem ent (mass/volume)Ordered By: Brant Langley on 11-28-2022 IgA [Mass/Vol] 205 mg/dL 87-352 [facility] Serum or plasma IgG measurem ent (mass/volume)Ordered By: Brant Langley on 11-28-2022 IgG [Mass/Vol] 1305 mg/dL [phone] [facility] Serum or plasma IgM measurem ent (mass/volume)Ordered By: Brant Langley on 11-28-2022 IgM [Mass/Vol] 129 mg/dL 26-217 [facility] Serum or plasma beta globuli n measurement by electrophoresis (mass/volume)Ordered By: Brant Langley on 11-28-2022 Beta globulin Elph [Mass/Vol] 1.1 g/dL 0.7-1.3 [facility] Serum or plasma gamma globul in measurement by electrophoresis (mass/volume)Ordered By: Brant Langley on 11-28-2022 Gamma globulin Elph [Mass/Vol] 1.4 g/dL 0.4-1.8 [facility] Serum or plasma gastrin david urement (mass/volume)Ordered By: Brant Langley on 11-28-2022 Gastrin [Mass/Vol] 135 pg/mL 0-115 [facility] Comment on above: Siemens Immulite 200 0 Immunochemiluminometric assay (ICMA)Values obtained with different assay methods or kits cannotbe used interchangeably. Results cannot be interpreted asabsolute evidence of the presence or absence of malignantdisease. Serum or plasma immunoelectr ophoresis interpretation (nominal result)Ordered By: Brant Langley on 11-28-2022 Interpretation IEP [Interp] Comment . [facility] Comment on above: No monoclonality det ected. Serum peanut IgE antibody as say (units/volume)Ordered By: Brant Langley on 11-28-2022 Peanut IgE Qn (S) <0.10 kU/L Class 0 [facility] Serum perinuclear neutrophil cytoplasmic antibody titer by immunofluorescenceOrdered By: Brant Langley on 11-28-2022 Neutrophil cytoplasmic Ab.perinuclear IF (S) [Titer] <1:20 titer Neg:<1:20 [facility] Comment on above: The presence of posi tive fluorescence exhibiting P-ANCA orC-ANCA patterns alone is not specific for the diagnosis ofWegener's Granulomatosis (WG) or microscopic polyangiitis.Decisions about treatment should not be based solely onANCA IFA results. The [employer] ANCA [employer] Consensusrecommends follow up testing of positive sera with both LA-3 and MPO-ANCA enzyme immunoassays. As many as 5% serumsamples are positive only by EIA. Ref. AM J Clin [id number];111:507-513. Serum soybean IgE antibody a ssay (units/volume)Ordered By: Brant Langley on 11-28-2022 Soybean IgE Qn (S) <0.10 kU/L Class 0 [facility] Serum tissue transglutaminas e IgA antibody assay (units/volume)Ordered By: Brant Langley on 11-28-2022 tTG IgA Qn (S) <2 U/mL 0-3 [facility] Comment on above: Negative 0 - 3 Weak Positive 4 - 10 Positive >10 Tissue Transglutaminase (tTG) has been identified as the endomysial antigen. Studies have demonstr- ated that endomysial IgA antibodies have over 99% specificity for gluten sensitive enteropathy. Serum wheat IgE antibody ass ay (units/volume)Ordered By: Brant Langley on 11-28-2022 Wheat IgE Qn (S) <0.10 kU/L Class 0 [facility] Thin prep Papanicolaou smear with manual screeningOrdered By: Brant Langley on 11-28-2022 Thin prep Papanicolaou smear with manual screening 1.1 0.7-1.7 [facility] Total protein bloodOrdered B y: Brant Langley on 11-28-2022 Protein [Mass/Vol] 7.4 g/dL 6.0-8.5 [facility] No Panel InformationOrdered By: Dr. Smyth on 11-26-2022 Thyroid Stimulating Hormone (TSH) 10.00 uIU/mL 0.358-3.74 [facility] Basophil percentageOrdered B y: Dr. Smyth on 10-03-2022 Chloride [Moles/Vol] 102 mmol/L 98-107 [facility] Glucose [Mass/Vol] 135 mg/dL 74-106 [facility] Comment on above: Fasting Glucose resu lt greater than or equal to 126 mg/dL suggests DIABETES MELLITUS per A.D.A. criteria. Potassium [Moles/Vol] 3.5 mmol/L 3.5-5.1 [facility] Sodium [Moles/Vol] 135 mmol/L 136-145 [facility] Culture, urineOrdered By: Zuri Smalls on 10-03-2022 Bacteria identified Cx Nom (U) Enterobacter cloacae complex [facility] Laboratory - Chemistry and C hemistry - challengeOrdered By: Dr. Smyth on 10-03-2022 CO2 [Moles/Vol] 29.0 mmol/L 21.0-32.0 [facility] Urea nitrogen/Creatinine [Mass ratio] 15.7 mg/mg 10-20 [facility] No Panel InformationOrdered By: Dr. Smyth on 10-03-2022 Estimated GFR (MDRD) Amer 65 mL/min >60 [facility] Comment on above: GFR Calc Estimated GFR (MDRD) Non-Af Amer 54 mL/min >60 [facility] Comment on above: Non- GFR Calc Thyroid Stimulating Hormone (TSH) 5.38 uIU/mL 0.358-3.74 [facility] Serum or plasma calcium david urement (mass/volume)Ordered By: Dr. Smyth on 10-03-2022 Calcium [Mass/Vol] 9.4 mg/dL 8.5-10.1 [facility] Serum or plasma creatinine m easurement (mass/volume)Ordered By: Dr. Smyth on 10-03-2022 Creatinine [Mass/Vol] 1.08 mg/dL 0.55-1.02 [facility] Comment on above: The validity of the calculated GFR & GFRAA in patients over 70 years has not been determined. Clinical correlation is essential. Serum or plasma urea nitroge n measurement (mass/volume)Ordered By: Dr. Smyth on 10-03-2022 Urea nitrogen [Mass/Vol] 17 mg/dL 7-18 [facility] Thin prep Papanicolaou smear with manual screeningOrdered By: Dr. Smyth on 10-03-2022 Thin prep Papanicolaou smear with manual screening 4 5-15 [facility] Whole blood hemoglobin A1c/t otal hemoglobin ratio (mass fraction)Ordered By: Dr. Smyth on 10-03-2022 HbA1c (Bld) [Mass fraction] 6.0 % 3.8-5.6 [facility] Comment on above: Normal < 5.7 % Predi abetic 5.7 - 6.4 % Diabetic >or= 6.5 % Please note range changes. Basophil percentageOrdered B y: Sai Smalls on 10-01-2022 Basophil percentage 0-5 SEEN /hpf 0-5 [facility] Bilirubin Test strip Ql (U)O rdered By: Sai Smalls on 10-01-2022 Bilirubin Ql (U) Negative Negative [facility] Culture, urineOrdered By: Zuri Smalls on 10-01-2022 Bacteria identified Cx Nom (U) Enterobacter cloacae complex [facility] Ketones Test strip Ql (U)Ord ered By: Sai Smalls on 10-01-2022 Ketones Ql (U) Negative Negative [facility] Mucus LM Ql (Urine sed)Order ed By: Sai Smalls on 10-01-2022 Mucus Ql (Urine sed) 0 SEEN /hpf [facility] Nitrite Test strip Ql (U)Ord ered By: Sai Smalls on 10-01-2022 Nitrite Ql (U) Negative Negative [facility] Protein Test strip Ql (U)Ord ered By: Sai Smalls on 10-01-2022 Protein Ql (U) Negative Negative [facility] Squamous epithelial cells de tection in urine sediment by light microscopyOrdered By: Sai Smalls on 10-01-2022 Epithelial cells.squamous LM Ql (Urine sed) 0 SEEN /hpf 5-10 [facility] Urine blood detectionOrdered By: Sai Smalls on 10-01-2022 RBC Ql (U) Negative Negative [facility] RBC Ql (U) 0 SEEN /hpf 0-5 [facility] Urine clarityOrdered By: Antonella Smalls on 10-01-2022 Clarity (U) Clear Clear [facility] Urine color determinationOrd ered By: Sai Smalls on 10-01-2022 Color (U) Yellow Yellow [facility] Urine glucose detectionOrder ed By: Sai Smalls on 10-01-2022 Glucose Ql (U) Normal mg/dl Normal [facility] Urine leukocyte esterase det ection by dipstickOrdered By: Sai Smalls on 10-01-2022 Leukocyte esterase Test strip Ql (U) 100 /ul Negative [facility] Urine pHOrdered By: Sai De La Torre er on 10-01-2022 pH (U) 6.0 [pH] 5.0 - 8.0 [facility] Urine sediment bacteria coun t by microscopy (number/high power field)Ordered By: Sai Smalls on 10-01-2022 Bacteria LM.HPF (Urine sed) [#/Area] 1 /[HPF] None Seen [facility] Urine specific gravity measu rementOrdered By: Sai Slim on 10-01-2022 Specific gravity (U) [Rel density] 1.005 1.002-1.030 [facility] Urobilinogen Auto test strip Ql (U)Ordered By: Sai Smalls on 10-01-2022 Urobilinogen Ql (U) Normal mg/dl Normal [facility] Absolute lymphocyte countOrd ered By: Dr. Smyth on 08-29-2022 Lymphocytes Auto (Unsp spec) [#/Vol] 1.91 10*3/uL 0.83-4.51 [facility] Basophil percentageOrdered B y: Dr. Smyth on 08-29-2022 Basophils/100 WBC (Bld) 0.8 % 0-1 [facility] Bilirubin [Mass/Vol] 0.70 mg/dL 0.20-1.00 [facility] Comment on above: For patients on eltr ombopag therapy, use of Dimension [place] TBIL is not recommended. Chloride [Moles/Vol] 103 mmol/L 98-107 [facility] Cholesterol [Mass/Vol] 157 mg/dL <200 [facility] Comment on above: <200 mg/dL Desirable 200-240 mg/dL Borderline >240 mg/dL High Risk Eosinophils/100 WBC (Bld) 2.5 % 0-5 [facility] Glucose [Mass/Vol] 158 mg/dL 74-106 [facility] Comment on above: Fasting Glucose resu lt greater than or equal to 126 mg/dL suggests DIABETES MELLITUS per A.D.A. criteria. Neutrophils (Bld) [#/Vol] 5.1 10*3/uL 2.0-7.7 [facility] Neutrophils/100 WBC (Bld) 64.7 % 47-70 [facility] Potassium [Moles/Vol] 3.1 mmol/L 3.5-5.1 [facility] Protein [Mass/Vol] 7.4 g/dL 6.4-8.2 [facility] Sodium [Moles/Vol] 138 mmol/L 136-145 [facility] Triglyceride [Mass/Vol] 94 mg/dL <199 [facility] Comment on above: The drugs N-Acetylcy steine and Metamizole may falsely depress this assay.Serum Triglycerides Reference Interval Normal <150 mg/dL Borderline high 150 - 199 mg/dL High 200 - 499 mg/dL Very High > or = 500 mg/dL WBC (Bld) [#/Vol] 7.9 10*3/uL 4.4-11.0 [facility] Blood erythrocytes count (nu mber/volume)Ordered By: Dr. Smyth on 08-29-2022 RBC (Bld) [#/Vol] 4.55 10*6/uL 4.2-5.4 [facility] Blood hemoglobin measurement (mass/volume)Ordered By: Dr. Smyth on 08-29-2022 Hemoglobin (Bld) [Mass/Vol] 13.5 g/dL 12.0-15.0 [facility] Blood lymphocytes/100 leukoc ytesOrdered By: Dr. Smyth on 08-29-2022 Lymphocytes/100 WBC (Bld) 24.3 % 19-41 [facility] Blood monocytes/100 leukocyt esOrdered By: Dr. Smyth on 08-29-2022 Monocytes/100 WBC (Bld) 7.4 % 0-10 [facility] Blood platelet mean volumeOr dered By: Dr. Smyth on 08-29-2022 Platelet mean volume (Bld) [Entitic vol] 9.9 fL 6.2-12.0 [facility] Determination of erythrocyte mean corpuscular volume (MCV)Ordered By: Dr. Smyth on 08-29-2022 MCV (RBC) [Entitic vol] 90.5 fL 81-99 [facility] Hematocrit Auto (Bld) [Volum e fraction]Ordered By: Dr. Smyth on 08-29-2022 Hematocrit (Bld) [Volume fraction] 41.2 % 37-47 [facility] Laboratory - Chemistry and C hemistry - challengeOrdered By: Dr. Smyth on 08-29-2022 ALP [Catalytic activity/Vol] 103 U/L 45-117 [facility] ALT [Catalytic activity/Vol] 25 U/L 13-56 [facility] CO2 [Moles/Vol] 29.0 mmol/L 21.0-32.0 [facility] Globulin (S) [Mass/Vol] 3.8 g/dL 2.2-4.2 [facility] Urea nitrogen/Creatinine [Mass ratio] 14.6 mg/mg 10-20 [facility] Laboratory - Hematology and Cell countsOrdered By: Dr. Smyth on 08-29-2022 Erythrocyte distribution width (RBC) [Entitic vol] 43.7 fL 35.1-43.9 [facility] Erythrocyte distribution width (RBC) [Ratio] 13.2 % 11.6-14.6 [facility] Immature granulocytes/100 WBC (Bld) 0.300 % 0.0-0.9 [facility] Comment on above: IG% - Immature Granu locytes (promyelocytes, myelocytes and metamyelocytes) > 1% indicates that a LEFT SHIFT is Present. MCH (RBC) [Entitic mass] 29.7 pg 27.0-32.0 [facility] Nucleated RBC/100 WBC (Bld) [Ratio] 0 % 0-5 [facility] MCHC Auto (RBC) [Mass/Vol]Or dered By: Dr. Smyth on 08-29-2022 MCHC (RBC) [Mass/Vol] 32.8 g/dL 32-36 [facility] No Panel InformationOrdered By: Dr. Smyth on 08-29-2022 Estimated GFR (MDRD) Amer 75 mL/min >60 [facility] Comment on above: GFR Calc Estimated GFR (MDRD) Non-Af Amer 62 mL/min >60 [facility] Comment on above: Non- GFR Calc Thyroid Stimulating Hormone (TSH) 4.97 uIU/mL 0.358-3.74 [facility] Platelets bldOrdered By: Dr. Smyth on 08-29-2022 Platelets (Bld) [#/Vol] 294 10*3/uL 150-450 [facility] Serum or plasma albumin david urement (mass/volume)Ordered By: Dr. Smyth on 08-29-2022 Albumin [Mass/Vol] 3.6 g/dL 3.2-5.0 [facility] Serum or plasma albumin/glob ulin mass ratioOrdered By: Dr. Smyth on 08-29-2022 Albumin/Globulin [Mass ratio] 0.9 {ratio} 0.9-2.4 [facility] Serum or plasma calcium david urement (mass/volume)Ordered By: Dr. Smyth on 08-29-2022 Calcium [Mass/Vol] 9.1 mg/dL 8.5-10.1 [facility] Serum or plasma cholesterol in HDL measurement (mass/volume)Ordered By: Dr. Smyth on 08-29-2022 Cholesterol in HDL [Mass/Vol] 57 mg/dL >40 [facility] Comment on above: The drugs N-Acetylcy steine and Metamizole may falsely depress this assay. Reference Range HDL <40 mg/dL Low HDL Cholesterol HDL >or= 60 mg/dL High HDL Cholesterol Serum or plasma cholesterol in VLDL measurement (mass/volume)Ordered By: Dr. Smyth on 08-29-2022 Cholesterol in VLDL [Mass/Vol] 19 mg/dL 5-40 [facility] Serum or plasma creatinine m easurement (mass/volume)Ordered By: Dr. Smyth on 08-29-2022 Creatinine [Mass/Vol] 0.96 mg/dL 0.55-1.02 [facility] Comment on above: The validity of the calculated GFR & GFRAA in patients over 70 years has not been determined. Clinical correlation is essential. Serum or plasma low density lipoprotein (LDL) cholesterol measurement (mass/volume)Ordered By: Dr. Smyth on 08-29-2022 Cholesterol in LDL [Mass/Vol] 81 mg/dL 0-130 [facility] Serum or plasma urea nitroge n measurement (mass/volume)Ordered By: Dr. Smyth on 08-29-2022 Urea nitrogen [Mass/Vol] 14 mg/dL 7-18 [facility] Thin prep Papanicolaou smear with manual screeningOrdered By: Dr. Smyth on 08-29-2022 Thin prep Papanicolaou smear with manual screening 23 U/L 15-37 [facility] Thin prep Papanicolaou smear with manual screening 6 5-15 [facility] Absolute lymphocyte counton 04-07-2022 Lymphocytes Auto (Unsp spec) [#/Vol] 2.91 10*3/uL 0.83-4.51 [facility] Work Phone: [phone] Basophil percentageon 2021 Basophil percentage 0-5 SEEN /hpf 0-5 [facility] Work Phone: Bilirubin [Mass/Vol] 0.40 mg/dL 0.20-1.00 [facility] Work Phone: Comment on above: For patients on eltr ombopag therapy, use of Dimension [place] TBIL is not recommended. Chloride [Moles/Vol] 101 mmol/L 98-107 [facility] Work Phone: Glucose [Mass/Vol] 109 mg/dL 74-106 [facility] Work Phone: Comment on above: Fasting Glucose resu lt from 100 to 125 mg/dL suggests IMPAIRED HOMEOSTASIS per A.D.A. criteria. Potassium [Moles/Vol] 2.9 mmol/L 3.5-5.1 [facility] Work Phone: Protein [Mass/Vol] 7.4 g/dL 6.4-8.2 [facility] Work Phone: Sodium [Moles/Vol] 137 mmol/L 136-145 [facility] Work Phone: Basophils/100 WBC (Bld) 0.3 % 0-1 [facility] Work Phone: Eosinophils/100 WBC (Bld) 2.3 % 0-5 [facility] Work Phone: Neutrophils (Bld) [#/Vol] 2.9 10*3/uL 2.0-7.7 [facility] Work Phone: Neutrophils/100 WBC (Bld) 44.8 % 47-70 [facility] Work Phone: WBC (Bld) [#/Vol] 6.4 10*3/uL 4.4-11.0 [facility] Work Phone: Bilirubin Test strip Ql (U)o n 04-07-2022 Bilirubin Ql (U) Negative Negative [facility] Work Phone: Blood erythrocytes count (nu mber/volume)on 04-07-2022 RBC (Bld) [#/Vol] 4.46 10*6/uL 4.2-5.4 [facility] Work Phone: Blood hemoglobin measurement (mass/volume)on 04-07-2022 Hemoglobin (Bld) [Mass/Vol] 13.6 g/dL 12.0-15.0 [facility] Work Phone: Blood lymphocytes/100 leukoc yteson 04-07-2022 Lymphocytes/100 WBC (Bld) 45.4 % 19-41 [facility] Work Phone: Blood monocytes/100 leukocyt eson 04-07-2022 Monocytes/100 WBC (Bld) 6.9 % 0-10 [facility] Work Phone: Blood platelet mean volumeon 04-07-2022 Platelet mean volume (Bld) [Entitic vol] 9.8 fL 6.2-12.0 [facility] Work Phone: Determination of erythrocyte mean corpuscular volume (MCV)on 04-07-2022 MCV (RBC) [Entitic vol] 91.3 fL 81-99 [facility] Work Phone: Hematocrit Auto (Bld) [Volum e fraction]on 04-07-2022 Hematocrit (Bld) [Volume fraction] 40.7 % 37-47 [facility] Work Phone: [phone] Ketones Test strip Ql (U)on 04-07-2022 Ketones Ql (U) Negative Negative [facility] Work Phone: Laboratory - Chemistry and C hemistry - challengeon 04-07-2022 ALP [Catalytic activity/Vol] 100 U/L 45-117 [facility] Work Phone: ALT [Catalytic activity/Vol] 39 U/L 13-56 [facility] Work Phone: CO2 [Moles/Vol] 29.0 mmol/L 21.0-32.0 [facility] Work Phone: Globulin (S) [Mass/Vol] 4.2 g/dL 2.2-4.2 [facility] Work Phone: Urea nitrogen/Creatinine [Mass ratio] 13.2 mg/mg 10-20 [facility] Work Phone: Laboratory - Hematology and Cell countson 04-07-2022 Erythrocyte distribution width (RBC) [Entitic vol] 41.7 fL 35.1-43.9 [facility] Work Phone: Erythrocyte distribution width (RBC) [Ratio] 12.5 % 11.6-14.6 [facility] Work Phone: Immature granulocytes/100 WBC (Bld) 0.300 % 0.0-0.9 [facility] Work Phone: Comment on above: IG% - Immature Granu locytes (promyelocytes, myelocytes and metamyelocytes) > 1% indicates that a LEFT SHIFT is Present. MCH (RBC) [Entitic mass] 30.5 pg 27.0-32.0 [facility] Work Phone: Nucleated RBC/100 WBC (Bld) [Ratio] 0 % 0-5 [facility] Work Phone: Laboratory - Microbiology an d Antimicrobial susceptibilityon 04-07-2022 SARS-CoV-2 (COVID-19) RNA MERLIN+probe Ql (Unsp spec) Not detected Not Detect [facility] Work Phone: Comment on above: Normal Reference [...] 04-07-2022 MCHC (RBC) [Mass/Vol] 33.4 g/dL 32-36 [facility] Work Phone: Mucus LM Ql (Urine sed)on Mucus Ql (Urine sed) 0 SEEN /hpf [facility] Work Phone: Nitrite Test strip Ql (U)on 04-07-2022 Nitrite Ql (U) Negative Negative [facility] Work Phone: No Panel Informationon 04-07 Estimated GFR (MDRD) Amer 72 mL/min >60 [facility] Work Phone: Comment on above: GFR Calc Estimated GFR (MDRD) Non-Af Amer 60 mL/min >60 [facility] Work Phone: Comment on above: Non- GFR Calc Platelets bldon 04-07-2022 Platelets (Bld) [#/Vol] 299 10*3/uL 150-450 [facility] Work Phone: Protein Test strip Ql (U)on 04-07-2022 Protein Ql (U) Negative Negative [facility] Work Phone: Serum or plasma albumin david urement (mass/volume)on 04-07-2022 Albumin [Mass/Vol] 3.2 g/dL 3.2-5.0 [facility] Work Phone: Serum or plasma albumin/glob ulin mass ratioon 04-07-2022 Albumin/Globulin [Mass ratio] 0.8 {ratio} 0.9-2.4 [facility] Work Phone: Serum or plasma calcium david urement (mass/volume)on 04-07-2022 Calcium [Mass/Vol] 8.9 mg/dL 8.5-10.1 [facility] Work Phone: Serum or plasma creatinine m easurement (mass/volume)on 04-07-2022 Creatinine [Mass/Vol] 0.98 mg/dL 0.55-1.02 [facility] Work Phone: Comment on above: The validity of the calculated GFR & GFRAA in patients over 70 years has not been determined. Clinical correlation is essential. Serum or plasma urea nitroge n measurement (mass/volume)on 04-07-2022 Urea nitrogen [Mass/Vol] 13 mg/dL 7-18 [facility] Work Phone: Squamous epithelial cells de tection in urine sediment by light microscopyon 04-07-2022 Epithelial cells.squamous LM Ql (Urine sed) 0-5 SEEN /hpf 5-10 [facility] Work Phone: Thin prep Papanicolaou smear with manual screeningon 04-07-2022 Thin prep Papanicolaou smear with manual screening 32 U/L 15-37 [facility] Work Phone: Thin prep Papanicolaou smear with manual screening 7 5-15 [facility] Work Phone: Urine blood detectionon 03-16 RBC Ql (U) Negative Negative [facility] Work Phone: RBC Ql (U) 0 SEEN /hpf 0-5 [facility] Work Phone: Urine clarityon 04-07-2022 Clarity (U) Clear Clear [facility] Work Phone: Urine color determinationon 04-07-2022 Color (U) Yellow Yellow [facility] Work Phone: Urine glucose detectionon Glucose Ql (U) Normal mg/dl Normal [facility] Work Phone: Urine leukocyte esterase det ection by dipstickon 04-07-2022 Leukocyte esterase Test strip Ql (U) 500 /ul Negative [facility] Work Phone: Urine pHon 04-07-2022 pH (U) 6.5 [pH] 5.0 - 8.0 [facility] Work Phone: [phone] Urine sediment bacteria coun t by microscopy (number/high power field)on 04-07-2022 Bacteria LM.HPF (Urine sed) [#/Area] 0 /[HPF] None Seen [facility] Work Phone: Urine specific gravity measu rementon 04-07-2022 Specific gravity (U) [Rel density] 1.010 1.002-1.030 [facility] Work Phone: Urobilinogen Auto test strip Ql (U)on 04-07-2022 Urobilinogen Ql (U) Normal mg/dl Normal [facility] Work Phone: Absolute lymphocyte counton 04-03-2022 Lymphocytes Auto (Unsp spec) [#/Vol] 1.55 10*3/uL 0.83-4.51 [facility] Work Phone: Basophil percentageon 2021 Basophils/100 WBC (Bld) 0.4 % 0-1 [facility] Work Phone: Chloride [Moles/Vol] 99 mmol/L 98-107 [facility] Work Phone: Eosinophils/100 WBC (Bld) 0.8 % 0-5 [facility] Work Phone: Glucose [Mass/Vol] 134 mg/dL 74-106 [facility] Work Phone: Comment on above: Fasting Glucose resu lt greater than or equal to 126 mg/dL suggests DIABETES MELLITUS per A.D.A. criteria. Neutrophils (Bld) [#/Vol] 7.9 10*3/uL 2.0-7.7 [facility] Work Phone: Neutrophils/100 WBC (Bld) 74.7 % 47-70 [facility] Work Phone: [phone] Potassium [Moles/Vol] 3.2 mmol/L 3.5-5.1 [facility] Work Phone: Sodium [Moles/Vol] 138 mmol/L 136-145 [facility] Work Phone: WBC (Bld) [#/Vol] 10.6 10*3/uL 4.4-11.0 [facility] Work Phone: Basophil percentage 5-10 SEEN /hpf 0-5 [facility] Work Phone: Bilirubin Test strip Ql (U)o n 04-03-2022 Bilirubin Ql (U) 3 mg/dL Negative [facility] Work Phone: Comment on above: COLOR OF URINE MAY A FFECT DIPSTICK RESULTS. Blood erythrocytes count (nu mber/volume)on 04-03-2022 RBC (Bld) [#/Vol] 4.49 10*6/uL 4.2-5.4 [facility] Work Phone: Blood hemoglobin measurement (mass/volume)on 04-03-2022 Hemoglobin (Bld) [Mass/Vol] 13.5 g/dL 12.0-15.0 [facility] Work Phone: Blood lymphocytes/100 leukoc yteson 04-03-2022 Lymphocytes/100 WBC (Bld) 14.6 % 19-41 [facility] Work Phone: Blood monocytes/100 leukocyt eson 04-03-2022 Monocytes/100 WBC (Bld) 9.2 % 0-10 [facility] Work Phone: Blood platelet mean volumeon 04-03-2022 Platelet mean volume (Bld) [Entitic vol] 9.4 fL 6.2-12.0 [facility] Work Phone: Determination of erythrocyte mean corpuscular volume (MCV)on 04-03-2022 MCV (RBC) [Entitic vol] 91.1 fL 81-99 [facility] Work Phone: Hematocrit Auto (Bld) [Volum e fraction]on 04-03-2022 Hematocrit (Bld) [Volume fraction] 40.9 % 37-47 [facility] Work Phone: Ketones Test strip Ql (U)on 04-03-2022 Ketones Ql (U) 5 mg/dl Negative [facility] Work Phone: Laboratory - Chemistry and C hemistry - challengeon 04-03-2022 CO2 [Moles/Vol] 31.0 mmol/L 21.0-32.0 [facility] Work Phone: Urea nitrogen/Creatinine [Mass ratio] 16.1 mg/mg 04-03 [facility] Work Phone: Laboratory - Hematology and Cell countson 04-03-2022 Erythrocyte distribution width (RBC) [Entitic vol] 41.8 fL 35.1-43.9 [facility] Work Phone: Erythrocyte distribution width (RBC) [Ratio] 12.6 % 11.6-14.6 [facility] Work Phone: Immature granulocytes/100 WBC (Bld) 0.300 % 0.0-0.9 [facility] Work Phone: Comment on above: IG% - Immature Granu locytes (promyelocytes, myelocytes and metamyelocytes) > 1% indicates that a LEFT SHIFT is Present. MCH (RBC) [Entitic mass] 30.1 pg 27.0-32.0 [facility] Work Phone: Nucleated RBC/100 WBC (Bld) [Ratio] 0 % 0-5 [facility] Work Phone: MCHC Auto (RBC) [Mass/Vol]on 04-03-2022 MCHC (RBC) [Mass/Vol] 33.0 g/dL 32-36 [facility] Work Phone: Mucus LM Ql (Urine sed)on Mucus Ql (Urine sed) 0 SEEN /hpf [facility] Work Phone: Nitrite Test strip Ql (U)on 04-03-2022 Nitrite Ql (U) Negative Negative [facility] Work Phone: No Panel Informationon 04-03 Estimated Creatinine Clearance Calc 48.05 ml/min [facility] Work Phone: Estimated GFR (MDRD) Amer 62 mL/min >60 [facility] Work Phone: Comment on above: GFR Calc Estimated GFR (MDRD) Non-Af Amer 52 mL/min >60 [facility] Work Phone: Comment on above: Non- GFR Calc Platelets bldon 04-03-2022 Platelets (Bld) [#/Vol] 267 10*3/uL 150-450 [facility] Work Phone: Protein Test strip Ql (U)on 04-03-2022 Protein Ql (U) 30 mg/dl Negative [facility] Work Phone: Serum or plasma calcium david urement (mass/volume)on 04-03-2022 Calcium [Mass/Vol] 9.1 mg/dL 8.5-10.1 [facility] Work Phone: Serum or plasma creatinine m easurement (mass/volume)on 04-03-2022 Creatinine [Mass/Vol] 1.12 mg/dL 0.55-1.02 [place] [facility] Work Phone: Comment on above: The validity of the calculated GFR & GFRAA in patients over 70 years has not been determined. Clinical correlation is essential. Serum or plasma urea nitroge n measurement (mass/volume)on 04-03-2022 Urea nitrogen [Mass/Vol] 18 mg/dL 7-18 [facility] Work Phone: Squamous epithelial cells de tection in urine sediment by light microscopyon 04-03-2022 Epithelial cells.squamous LM Ql (Urine sed) 0-5 SEEN /hpf 5-10 [facility] Work Phone: Thin prep Papanicolaou smear with manual screeningon 04-03-2022 Thin prep Papanicolaou smear with manual screening 8 5-15 [facility] Work Phone: Urine blood detectionon 03-16 RBC Ql (U) Negative Negative [facility] Work Phone: RBC Ql (U) 0 SEEN /hpf 0-5 [facility] Work Phone: Urine clarityon 04-03-2022 Clarity (U) Clear Clear [facility] Work Phone: Urine color determinationon 04-03-2022 Color (U) Yellow Yellow [facility] Work Phone: Urine glucose detectionon Glucose Ql (U) Normal mg/dl Normal [facility] Work Phone: Urine leukocyte esterase det ection by dipstickon 04-03-2022 Leukocyte esterase Test strip Ql (U) 500 /ul Negative [facility] Work Phone: Urine pHon 04-03-2022 pH (U) 6.0 [pH] 5.0 - 8.0 [facility] Work Phone: Urine sediment bacteria coun t by microscopy (number/high power field)on 04-03-2022 Bacteria LM.HPF (Urine sed) [#/Area] 1 /[HPF] None Seen [facility] Work Phone: Urine specific gravity measu rementon 04-03-2022 Specific gravity (U) [Rel density] 1.030 1.002-1.030 [facility] Work Phone: Urobilinogen Auto test strip Ql (U)on 04-03-2022 Urobilinogen Ql (U) Normal mg/dl Normal [facility] Work Phone: Basophil percentageon 2021 Chloride [Moles/Vol] 101 mmol/L 98-107 [facility] Work Phone: Glucose [Mass/Vol] 116 mg/dL 74-106 [facility] Work Phone: Comment on above: Fasting Glucose resu lt from 100 to 125 mg/dL suggests IMPAIRED HOMEOSTASIS per A.D.A. criteria. Potassium [Moles/Vol] 3.4 mmol/L 3.5-5.1 [facility] Work Phone: Sodium [Moles/Vol] 137 mmol/L 136-145 [facility] Work Phone: Laboratory - Chemistry and C hemistry - challengeon 01-21-2022 CO2 [Moles/Vol] 29.0 mmol/L 21.0-32.0 [facility] Work Phone: Urea nitrogen/Creatinine [Mass ratio] 17.6 mg/mg 10-20 [facility] Work Phone: No Panel Informationon 01-21 Estimated GFR (MDRD) Amer 70 mL/min >60 [facility] Work Phone: Comment on above: GFR Calc Estimated GFR (MDRD) Non-Af Amer 58 mL/min >60 [facility] Work Phone: Comment on above: Non- GFR Calc Serum or plasma calcium david urement (mass/volume)on 01-21-2022 Calcium [Mass/Vol] 9.2 mg/dL 8.5-10.1 [facility] Work Phone: Serum or plasma creatinine m easurement (mass/volume)on 01-21-2022 Creatinine [Mass/Vol] 1.02 mg/dL 0.55-1.02 [facility] Work Phone: Comment on above: The validity of the calculated GFR & GFRAA in patients over 70 years has not been determined. Clinical correlation is essential. Serum or plasma urea nitroge n measurement (mass/volume)on 01-21-2022 Urea nitrogen [Mass/Vol] 18 mg/dL 7-18 [facility] Work Phone: Thin prep Papanicolaou smear with manual screeningon 01-21-2022 Thin prep Papanicolaou smear with manual screening 7 5-15 [facility] Work Phone: Basophil percentageon 2021 Chloride [Moles/Vol] 101 mmol/L 98-107 [facility] Work Phone: Glucose [Mass/Vol] 129 mg/dL 74-106 [facility] Work Phone: Comment on above: Fasting Glucose resu lt greater than or equal to 126 mg/dL suggests DIABETES MELLITUS per A.D.A. criteria. Potassium [Moles/Vol] 3.2 mmol/L 3.5-5.1 [facility] Work Phone: Sodium [Moles/Vol] 138 mmol/L 136-145 [facility] Work Phone: Laboratory - Chemistry and C hemistry - challengeon 01-14-2022 CO2 [Moles/Vol] 31.0 mmol/L 21.0-32.0 [facility] Work Phone: Urea nitrogen/Creatinine [Mass ratio] 18.6 mg/mg 10-20 [facility] Work Phone: No Panel Informationon 01-14 Estimated GFR (MDRD) Amer 74 mL/min >60 [facility] Work Phone: Comment on above: GFR Calc Estimated GFR (MDRD) Non-Af Amer 61 mL/min >60 [facility] Work Phone: Comment on above: Non- GFR Calc Serum or plasma calcium david urement (mass/volume)on 01-14-2022 Calcium [Mass/Vol] 9.2 mg/dL 8.5-10.1 [facility] Work Phone: Serum or plasma creatinine m easurement (mass/volume)on 01-14-2022 Creatinine [Mass/Vol] 0.97 mg/dL 0.55-1.02 [facility] Work Phone: Comment on above: The validity of the calculated GFR & GFRAA in patients over 70 years has not been determined. Clinical correlation is essential. Serum or plasma urea nitroge n measurement (mass/volume)on 01-14-2022 Urea nitrogen [Mass/Vol] 18 mg/dL 7-18 [facility] Work Phone: Thin prep Papanicolaou smear with manual screeningon 01-14-2022 Thin prep Papanicolaou smear with manual screening 6 5-15 [facility] Work Phone: Basophil percentageon 2021 Chloride [Moles/Vol] 103 mmol/L 98-107 [facility] Work Phone: [phone] Glucose [Mass/Vol] 143 mg/dL 74-106 [facility] Work Phone: Comment on above: Fasting Glucose resu lt greater than or equal to 126 mg/dL suggests DIABETES MELLITUS per A.D.A. criteria. Potassium [Moles/Vol] 3.6 mmol/L 3.5-5.1 [facility] Work Phone: Sodium [Moles/Vol] 137 mmol/L 136-145 [facility] Work Phone: Laboratory - Chemistry and C hemistry - challengeon 11-05-2021 CO2 [Moles/Vol] 26.0 mmol/L 21.0-32.0 [facility] Work Phone: Urea nitrogen/Creatinine [Mass ratio] 14.8 mg/mg 10-20 [facility] Work Phone: No Panel Informationon 11-05 Estimated GFR (MDRD) Amer 76 mL/min >60 [facility] Work Phone: Comment on above: GFR Calc Estimated GFR (MDRD) Non-Af Amer 63 mL/min >60 [facility] Work Phone: Comment on above: Non- GFR Calc Serum or plasma calcium david urement (mass/volume)on 11-05-2021 Calcium [Mass/Vol] 8.9 mg/dL 8.5-10.1 [facility] Work Phone: Serum or plasma creatinine m easurement (mass/volume)on 11-05-2021 Creatinine [Mass/Vol] 0.94 mg/dL 0.55-1.02 [facility] Work Phone: Comment on above: The validity of the calculated GFR & GFRAA in patients over 70 years has not been determined. Clinical correlation is essential. Serum or plasma urea nitroge n measurement (mass/volume)on 11-05-2021 Urea nitrogen [Mass/Vol] 14 mg/dL 7-18 [facility] Work Phone: Thin prep Papanicolaou smear with manual screeningon 11-05-2021 Thin prep Papanicolaou smear with manual screening 8 5-15 [facility] Work Phone: Absolute lymphocyte counton 10-08-2021 Lymphocytes Auto (Unsp spec) [#/Vol] 2.05 10*3/uL 0.83-4.51 [facility] Work Phone: Basophil percentageon 2021 Basophils/100 WBC (Bld) 0.7 % 0-1 [facility] Work Phone: Bilirubin [Mass/Vol] 0.40 mg/dL 0.20-1.00 [facility] Work Phone: Comment on above: For patients on eltr ombopag therapy, use of Dimension [place] TBIL is not recommended. Chloride [Moles/Vol] 106 mmol/L 98-107 [facility] Work Phone: Eosinophils/100 WBC (Bld) 2.7 % 0-5 [facility] Work Phone: Glucose [Mass/Vol] 107 mg/dL 74-106 [facility] Work Phone: Comment on above: Fasting Glucose resu lt from 100 to 125 mg/dL suggests IMPAIRED HOMEOSTASIS per A.D.A. criteria. Neutrophils (Bld) [#/Vol] 5.8 10*3/uL 2.0-7.7 [facility] Work Phone: Neutrophils/100 WBC (Bld) 65.0 % 47-70 [facility] Work Phone: [phone] Potassium [Moles/Vol] 4.0 mmol/L 3.5-5.1 [facility] Work Phone: [phone] Protein [Mass/Vol] 7.2 g/dL 6.4-8.2 [facility] Work Phone: Sodium [Moles/Vol] 138 mmol/L 136-145 [facility] Work Phone: WBC (Bld) [#/Vol] 8.9 10*3/uL 4.4-11.0 [facility] Work Phone: Blood erythrocytes count (nu mber/volume)on 10-08-2021 RBC (Bld) [#/Vol] 4.35 10*6/uL 4.2-5.4 [facility] Work Phone: Blood hemoglobin measurement (mass/volume)on 10-08-2021 Hemoglobin (Bld) [Mass/Vol] 13.3 g/dL 12.0-15.0 [facility] Work Phone: Blood lymphocytes/100 leukoc yteson 10-08-2021 Lymphocytes/100 WBC (Bld) 23.1 % 19-41 [facility] Work Phone: Blood monocytes/100 leukocyt eson 10-08-2021 Monocytes/100 WBC (Bld) 8.0 % 0-10 [facility] Work Phone: Blood platelet mean volumeon 10-08-2021 Platelet mean volume (Bld) [Entitic vol] 9.7 fL 6.2-12.0 [facility] Work Phone: Determination of erythrocyte mean corpuscular volume (MCV)on 10-08-2021 MCV (RBC) [Entitic vol] 93.8 fL 81-99 [facility] Work Phone: Hematocrit Auto (Bld) [Volum e fraction]on 10-08-2021 Hematocrit (Bld) [Volume fraction] 40.8 % 37-47 [facility] Work Phone: Laboratory - Chemistry and C hemistry - challengeon 10-08-2021 ALP [Catalytic activity/Vol] 85 U/L 45-117 [facility] Work Phone: ALT [Catalytic activity/Vol] 43 U/L 13-56 [facility] Work Phone: CO2 [Moles/Vol] 26.0 mmol/L 21.0-32.0 [facility] Work Phone: Globulin (S) [Mass/Vol] 3.7 g/dL 2.2-4.2 [facility] Work Phone: Magnesium [Mass/Vol] 2.3 mg/dL 1.6-2.6 [facility] Work Phone: Natriuretic peptide B (Bld) [Mass/Vol] 23.2 pg/mL 0-100 [facility] Work Phone: Urea nitrogen/Creatinine [Mass ratio] 30.7 mg/mg 10-20 [facility] Work Phone: Laboratory - Hematology and Cell countson 10-08-2021 Erythrocyte distribution width (RBC) [Entitic vol] 46.0 fL 35.1-43.9 [facility] Work Phone: Erythrocyte distribution width (RBC) [Ratio] 13.2 % 11.6-14.6 [facility] Work Phone: Immature granulocytes/100 WBC (Bld) 0.500 % 0.0-0.9 [facility] Work Phone: Comment on above: IG% - Immature Granu locytes (promyelocytes, myelocytes and metamyelocytes) > 1% indicates that a LEFT SHIFT is Present. MCH (RBC) [Entitic mass] 30.6 pg 27.0-32.0 [facility] Work Phone: Nucleated RBC/100 WBC (Bld) [Ratio] 0 % 0-5 [facility] Work Phone: MCHC Auto (RBC) [Mass/Vol]on 10-08-2021 MCHC (RBC) [Mass/Vol] 32.6 g/dL 32-36 [facility] Work Phone: No Panel Informationon 10-08 Estimated GFR (MDRD) Amer 86 mL/min >60 [facility] Work Phone: Comment on above: GFR Calc Estimated GFR (MDRD) Non-Af Amer 71 mL/min >60 [facility] Work Phone: Comment on above: Non- GFR Calc Platelets bldon 10-08-2021 Platelets (Bld) [#/Vol] 277 10*3/uL 150-450 [facility] Work Phone: Serum or plasma albumin david urement (mass/volume)on 10-08-2021 Albumin [Mass/Vol] 3.5 g/dL 3.2-5.0 [facility] Work Phone: Serum or plasma albumin/glob ulin mass ratioon 10-08-2021 Albumin/Globulin [Mass ratio] 0.9 {ratio} 0.9-2.4 [facility] Work Phone: Serum or plasma calcium david urement (mass/volume)on 10-08-2021 Calcium [Mass/Vol] 8.9 mg/dL 8.5-10.1 [facility] Work Phone: Serum or plasma creatinine m easurement (mass/volume)on 10-08-2021 Creatinine [Mass/Vol] 0.85 mg/dL 0.55-1.02 [facility] Work Phone: Comment on above: The validity of the calculated GFR & GFRAA in patients over 70 years has not been determined. Clinical correlation is essential. Serum or plasma urea nitroge n measurement (mass/volume)on 10-08-2021 Urea nitrogen [Mass/Vol] 26 mg/dL 7-18 [facility] Work Phone: Thin prep Papanicolaou smear with manual screeningon 10-08-2021 Thin prep Papanicolaou smear with manual screening 25 U/L 15-37 [facility] Work Phone: Thin prep Papanicolaou smear with manual screening 6 5-15 [facility] Work Phone: Absolute lymphocyte counton 09-04-2021 Lymphocytes Auto (Unsp spec) [#/Vol] 1.78 10*3/uL 0.83-4.51 [facility] Work Phone: Basophil percentageon 2021 Basophils/100 WBC (Bld) 0.3 % 0-1 [facility] Work Phone: Bilirubin [Mass/Vol] 0.60 mg/dL 0.20-1.00 [facility] Work Phone: Comment on above: For patients on eltr ombopag therapy, use of [place] TBIL is not recommended. Chloride [Moles/Vol] 103 mmol/L 98-107 [facility] Work Phone: Cholesterol [Mass/Vol] 193 mg/dL <200 [facility] Work Phone: Comment on above: <200 mg/dL Desirable 200-240 mg/dL Borderline >240 mg/dL High Risk Eosinophils/100 WBC (Bld) 0.7 % 0-5 [facility] Work Phone: Glucose [Mass/Vol] 128 mg/dL 74-106 [facility] Work Phone: Comment on above: Fasting Glucose resu lt greater than or equal to 126 mg/dL suggests DIABETES MELLITUS per A.D.A. criteria. Neutrophils (Bld) [#/Vol] 6.9 10*3/uL 2.0-7.7 [facility] Work Phone: Neutrophils/100 WBC (Bld) 72.8 % 47-70 [facility] Work Phone: Potassium [Moles/Vol] 3.7 mmol/L 3.5-5.1 [facility] Work Phone: Protein [Mass/Vol] 7.2 g/dL 6.4-8.2 [facility] Work Phone: Sodium [Moles/Vol] 137 mmol/L 136-145 [facility] Work Phone: Triglyceride [Mass/Vol] 79 mg/dL <199 [facility] Work Phone: Comment on above: The drugs N-Acetylcy steine and Metamizole may falsely depress this assay.Serum Triglycerides Reference Interval Normal <150 mg/dL Borderline high 150 - 199 mg/dL High 200 - 499 mg/dL Very High > or = 500 mg/dL WBC (Bld) [#/Vol] 9.5 10*3/uL 4.4-11.0 [facility] Work Phone: Blood erythrocytes count (nu mber/volume)on 09-04-2021 RBC (Bld) [#/Vol] 4.58 10*6/uL 4.2-5.4 [facility] Work Phone: Blood hemoglobin measurement (mass/volume)on 09-04-2021 Hemoglobin (Bld) [Mass/Vol] 13.9 g/dL 12.0-15.0 [facility] Work Phone: Blood lymphocytes/100 leukoc yteson 09-04-2021 Lymphocytes/100 WBC (Bld) 18.8 % 19-41 [facility] Work Phone: Blood monocytes/100 leukocyt eson 09-04-2021 Monocytes/100 WBC (Bld) 7.1 % 0-10 [facility] Work Phone: Blood platelet mean volumeon 09-04-2021 Platelet mean volume (Bld) [Entitic vol] 9.9 fL 6.2-12.0 [facility] Work Phone: Determination of erythrocyte mean corpuscular volume (MCV)on 09-04-2021 MCV (RBC) [Entitic vol] 93.9 fL 81-99 [facility] Work Phone: Hematocrit Auto (Bld) [Volum e fraction]on 09-04-2021 Hematocrit (Bld) [Volume fraction] 43.0 % 37-47 [facility] Work Phone: Laboratory - Chemistry and C hemistry - challengeon 09-04-2021 ALP [Catalytic activity/Vol] 96 U/L 45-117 [facility] Work Phone: ALT [Catalytic activity/Vol] 60 U/L 13-56 [facility] Work Phone: CO2 [Moles/Vol] 28.0 mmol/L 21.0-32.0 [facility] Work Phone: Globulin (S) [Mass/Vol] 3.7 g/dL 2.2-4.2 [facility] Work Phone: Urea nitrogen/Creatinine [Mass ratio] 23.2 mg/mg 10-20 [facility] Work Phone: Laboratory - Hematology and Cell countson 09-04-2021 Erythrocyte distribution width (RBC) [Entitic vol] 44.5 fL 35.1-43.9 [facility] Work Phone: Erythrocyte distribution width (RBC) [Ratio] 13.0 % 11.6-14.6 [facility] Work Phone: Immature granulocytes/100 WBC (Bld) 0.300 % 0.0-0.9 [facility] Work Phone: Comment on above: IG% - Immature Granu locytes (promyelocytes, myelocytes and metamyelocytes) > 1% indicates that a LEFT SHIFT is Present. MCH (RBC) [Entitic mass] 30.3 pg 27.0-32.0 [facility] Work Phone: Nucleated RBC/100 WBC (Bld) [Ratio] 0 % 0-5 [facility] Work Phone: MCHC Auto (RBC) [Mass/Vol]on 09-04-2021 MCHC (RBC) [Mass/Vol] 32.3 g/dL 32-36 [facility] Work Phone: No Panel Informationon 09-04 Estimated GFR (MDRD) Amer 85 mL/min >60 [facility] Work Phone: Comment on above: GFR Calc Estimated GFR (MDRD) Non-Af Amer 70 mL/min >60 [facility] Work Phone: Comment on above: Non- GFR Calc Thyroid Stimulating Hormone (TSH) 1.19 uIU/mL 0.358-3.74 [facility] Work Phone: Platelets bldon 09-04-2021 Platelets (Bld) [#/Vol] 320 10*3/uL 150-450 [facility] Work Phone: Serum or plasma albumin david urement (mass/volume)on 09-04-2021 Albumin [Mass/Vol] 3.5 g/dL 3.2-5.0 [facility] Work Phone: Serum or plasma albumin/glob ulin mass ratioon 09-04-2021 Albumin/Globulin [Mass ratio] 0.9 {ratio} 0.9-2.4 [facility] Work Phone: Serum or plasma calcium david urement (mass/volume)on 09-04-2021 Calcium [Mass/Vol] 9.0 mg/dL 8.5-10.1 [facility] Work Phone: Serum or plasma cholesterol in HDL measurement (mass/volume)on 09-04-2021 Cholesterol in HDL [Mass/Vol] 75 mg/dL >40 [facility] Work Phone: Comment on above: The drugs N-Acetylcy steine and Metamizole may falsely depress this assay. Reference Range HDL <40 mg/dL Low HDL Cholesterol HDL >or= 60 mg/dL High HDL Cholesterol Serum or plasma cholesterol in VLDL measurement (mass/volume)on 09-04-2021 Cholesterol in VLDL [Mass/Vol] 16 mg/dL 5-40 [facility] Work Phone: Serum or plasma creatinine m easurement (mass/volume)on 09-04-2021 Creatinine [Mass/Vol] 0.86 mg/dL 0.55-1.02 [facility] Work Phone: Comment on above: The validity of the calculated GFR & GFRAA in patients over 70 years has not been determined. Clinical correlation is essential. Serum or plasma low density lipoprotein (LDL) cholesterol measurement (mass/volume)on 09-04-2021 Cholesterol in LDL [Mass/Vol] 102 mg/dL 0-130 [facility] Work Phone: Serum or plasma urea nitroge n measurement (mass/volume)on 09-04-2021 Urea nitrogen [Mass/Vol] 20 mg/dL 7-18 [facility] Work Phone: Thin prep Papanicolaou smear with manual screeningon 09-04-2021 Thin prep Papanicolaou smear with manual screening 27 U/L 15-37 [facility] Work Phone: Thin prep Papanicolaou smear with manual screening 6 5-15 [facility] Work Phone: NOVEL CORONAVIRUS NASOPHARYN GEAL - [facility] SPECIMEN ONLYon 01-23-2020 SARS-COV-2 NOT DETECTED Normal NOT DETECTED [facility] Comment on above: Order Comment: Submi tter [...] or clinically deteriorating. Performed By: #### L [id number] #### [facility] (DEFAULT) [address] [place] [address] Culture, urine Bacteria identified Cx Nom (U) Mixed Gram Pos & Gram Neg Org [facility] Work Phone: Bacteria identified Cx Nom (U) Culture exhibits no growth. [facility] Work Phone: Vital Signs Date Time Vital Sign Value Performing Clinician Facility 02-27-2025 07:37-0400 Body height 170.[address] Joseph Smyth MD Work Phone: [facility] 02-27-2025 07:37-0400 Body mass index (BMI) [Ratio] 44.8 kg/m2 Dr. Joseph Smyth MD Work Phone: [facility] 02-27-2025 07:37-0400 Body temperature 98.6 [degF] Dr. Joseph Smyth MD Work Phone: [facility] 02-27-2025 07:37-0400 Body weight 129.[address] Joseph Smyth MD Work Phone: [facility] 02-27-2025 07:37-0400 Diastolic blood pressure 78 mm[Hg] Dr. Joseph Smyth MD Work Phone: [facility] 02-27-2025 07:37-0400 Heart rate 96 /min Dr. Joseph Smyth MD Work Phone: [facility] 02-27-2025 07:37-0400 Respiratory rate 18 /min Dr. Joseph Smyth MD Work Phone: [facility] 02-27-2025 07:37-0400 SaO2% (BldA) [Mass fraction] 96 % Dr. Joseph Smyth MD Work Phone: [facility] 02-27-2025 07:37-0400 Systolic blood pressure 134 mm[Hg] Dr. Joseph Smyth MD Work Phone: [facility] 12-28-2024 09:59-0400 Body temperature 97.8 [degF] Dr. Joseph Smyth MD Work Phone: [facility] 12-28-2024 09:59-0400 Diastolic blood pressure 58 mm[Hg] Dr. Joseph Smyth MD Work Phone: [facility] 12-28-2024 09:59-0400 Heart rate 69 /min Dr. Joseph Smyth MD Work Phone: [facility] 12-28-2024 09:59-0400 Respiratory rate 18 /min Dr. Joseph Smyth MD Work Phone: [facility] 12-28-2024 09:59-0400 SaO2% (BldA) [Mass fraction] 97 % Dr. Joseph Smyth MD Work Phone: [facility] 12-28-2024 09:59-0400 Systolic blood pressure 151 mm[Hg] Dr. Joseph Smyth MD Work Phone: [facility] 12-28-2024 07:56-0400 Body height 170.[address] Joseph Smyth MD Work Phone: [facility] 12-28-2024 07:56-0400 Body mass index (BMI) [Ratio] 43.9 kg/m2 Dr. Joseph Smyth MD Work Phone: [facility] 12-28-2024 07:56-0400 Body weight 127.[address] Joseph Smyth MD Work Phone: [facility] 12-06-2024 09:06-0400 Body height 170.[address] Joseph Smyth MD Work Phone: [facility] 12-06-2024 09:06-0400 Body mass index (BMI) [Ratio] 46.5 kg/m2 Dr. Joseph Smyth MD Work Phone: [facility] 12-06-2024 09:06-0400 Body temperature 97.3 [degF] Dr. Joseph Smyth MD Work Phone: [facility] 12-06-2024 09:06-0400 Body weight 134.[address] Joseph Smyth MD Work Phone: [facility] 12-06-2024 09:06-0400 Diastolic blood pressure 73 mm[Hg] Dr. Joseph Smyth MD Work Phone: [facility] 12-06-2024 09:06-0400 Heart rate 97 /min Dr. Joseph Smyth MD Work Phone: [facility] 12-06-2024 09:06-0400 Respiratory rate 18 /min Dr. Joseph Symth MD Work Phone: [facility] 12-06-2024 09:06-0400 SaO2% (BldA) [Mass fraction] 95 % Dr. Joseph Smyth MD Work Phone: [facility] 12-06-2024 09:06-0400 Systolic blood pressure 159 mm[Hg] Dr. Joseph Smyth MD Work Phone: [facility] 11-28-2024 08:21-0400 Body height 170.[address] Joseph Smyth MD Work Phone: [facility] 11-28-2024 08:21-0400 Body mass index (BMI) [Ratio] 47 kg/m2 Dr. Joseph Smyth MD Work Phone: [facility] 11-28-2024 08:21-0400 Body temperature 98.2 [degF] Dr. Joseph Smyth MD Work Phone: [facility] 11-28-2024 08:21-0400 Body weight 136.[address] Joseph Smyth MD Work Phone: [facility] 11-28-2024 08:21-0400 Diastolic blood pressure 84 mm[Hg] Dr. Joseph Smyth MD Work Phone: [facility] 11-28-2024 08:21-0400 Heart rate 68 /min Dr. Joseph Smyth MD Work Phone: [facility] 11-28-2024 08:21-0400 Respiratory rate 18 /min Dr. Joseph Smyth MD Work Phone: [facility] 11-28-2024 08:21-0400 SaO2% (BldA) [Mass fraction] 98 % Dr. Joseph Smyth MD Work Phone: [facility] 11-28-2024 08:21-0400 Systolic blood pressure 124 mm[Hg] Dr. Joseph Smyth MD Work Phone: [facility] 10-26-2024 15:20-0400 Body temperature 97.1 [degF] Dr. Joseph Smyth MD Work Phone: [facility] 10-26-2024 15:20-0400 Diastolic blood pressure 76 mm[Hg] Dr. Joseph Smyth MD Work Phone: [facility] 10-26-2024 15:20-0400 Heart rate 68 /min Dr. Joseph Smyth MD Work Phone: [facility] 10-26-2024 15:20-0400 Respiratory rate 16 /min Dr. Joseph Smyth MD Work Phone: [facility] 10-26-2024 15:20-0400 SaO2% (BldA) [Mass fraction] 97 % Dr. Joseph Smyth MD Work Phone: [facility] 10-26-2024 15:20-0400 Systolic blood pressure 144 mm[Hg] Dr. Joseph Smyth MD Work Phone: [facility] 10-26-2024 13:44-0400 Body height 170.[address] Joseph Smyth MD Work Phone: [facility] 10-26-2024 13:44-0400 Body mass index (BMI) [Ratio] 47.4 kg/m2 Dr. Joseph Smyth MD Work Phone: [facility] 10-26-2024 13:44-0400 Body weight 137.[address] Joseph Smyth MD Work Phone: [facility] 09-23-2024 08:28-0400 Body mass index (BMI) [Ratio] 46.8 kg/m2 Dr. Joseph Smyth MD Work Phone: [facility] 09-23-2024 08:28-0400 Body temperature 96.3 [degF] Dr. Joseph Smyth MD Work Phone: [facility] 09-23-2024 08:28-0400 Body weight 135.[address] Joseph Smyth MD Work Phone: [facility] 09-23-2024 08:28-0400 Diastolic blood pressure 92 mm[Hg] Dr. Joseph Smyth MD Work Phone: [facility] 09-23-2024 08:28-0400 Heart rate 75 /min Dr. Joseph Smyth MD Work Phone: [facility] 09-23-2024 08:28-0400 Respiratory rate 16 /min Dr. Joseph Smyth MD Work Phone: [facility] 09-23-2024 08:28-0400 SaO2% (BldA) [Mass fraction] 95 % Dr. Joseph Smyth MD Work Phone: [facility] 09-23-2024 08:28-0400 Systolic blood pressure 158 mm[Hg] Dr. Joseph Smyth MD Work Phone: [facility] 08-29-2024 08:59-0400 Body mass index (BMI) [Ratio] 47.4 kg/m2 Dr. Joseph Smyth MD Work Phone: [facility] 08-29-2024 08:59-0400 Body temperature 97.4 [degF] Dr. Joseph Smyth MD Work Phone: [facility] 08-29-2024 08:59-0400 Body weight 137.[address] Joseph Smyth MD Work Phone: [facility] 08-29-2024 08:59-0400 Diastolic blood pressure 80 mm[Hg] Dr. Joseph Smyth MD Work Phone: [facility] 08-29-2024 08:59-0400 Heart rate 61 /min Dr. Joseph Smyth MD Work Phone: [facility] 08-29-2024 08:59-0400 Respiratory rate 16 /min Dr. Joseph Smyth MD Work Phone: [facility] 08-29-2024 08:59-0400 SaO2% (BldA) [Mass fraction] 97 % Dr. Joseph Smyth MD Work Phone: [facility] 08-29-2024 08:59-0400 Systolic blood pressure 130 mm[Hg] Dr. Joseph Smyth MD Work Phone: [facility] 08-21-2023 09:48-0500 Body height 170.7 cm Autumn Poole PA-C Work Phone: [phone] [place] [address] 08-21-2023 09:48-0500 Body mass index (BMI) [Ratio] 44.65 kg/m2 Autumn Poole PA-C Work Phone: [phone](488)[phone] [place] [address] 08-21-2023 09:48-0500 Body temperature 96.1 [degF] Autumn Poole PA-C Work Phone: [facility] 08-21-2023 09:48-0500 Body weight 130.1 kg Autumn Poole PA-C Work Phone: [facility] 08-21-2023 09:48-0500 Diastolic blood pressure 64 mm[Hg] Autumn Poole PA-C Work Phone: [phone](185)[phone] [place] [address] 08-21-2023 09:48-0500 Heart rate 73 /min Autumn Poole PA-C Work Phone: [phone](020)[phone] [place] [address] 08-21-2023 09:48-0500 Respiratory rate 18 /min Autumn Poole PA-C Work Phone: [facility] 08-21-2023 09:48-0500 SaO2% (BldA) [Mass fraction] 92 % Autumn Poole PA-C Work Phone: [facility] 08-21-2023 09:48-0500 Systolic blood pressure 131 mm[Hg] Autumn Poole PA-C Work Phone: [facility] 07-29-2023 09:00-0500 Body height 170.[address] Joseph Smyth Work Phone: [facility] 07-29-2023 09:00-0500 Body mass index (BMI) [Ratio] 45.1 kg/m2 Dr. Joseph Smyth Work Phone: [facility] 07-29-2023 09:00-0500 Body temperature 97.8 [degF] Dr. Joseph Smyth Work Phone: [facility] 07-29-2023 09:00-0500 Body weight 130.[address] Joseph Smyth Work Phone: [facility] 07-29-2023 09:00-0500 Diastolic blood pressure 88 mm[Hg] Dr. Joseph Smyth Work Phone: [facility] 07-29-2023 09:00-0500 Heart rate 78 /min Dr. Joseph Smyth Work Phone: [facility] 07-29-2023 09:00-0500 Respiratory rate 16 /min Dr. Joseph Smyth Work Phone: [facility] 07-29-2023 09:00-0500 SaO2% (BldA) [Mass fraction] 98 % Dr. Joseph Smyth Work Phone: [facility] 07-29-2023 09:00-0500 Systolic blood pressure 146 mm[Hg] Dr. Joseph Smyth Work Phone: [facility] 06-29-2023 09:00-0500 Body temperature 97 [degF] Dr. Joseph Smyth Work Phone: [facility] 06-29-2023 09:00-0500 Diastolic blood pressure 73 mm[Hg] Dr. Joseph Smyth Work Phone: [facility] 06-29-2023 09:00-0500 Heart rate 63 /min Dr. Joseph Smyth Work Phone: [facility] 06-29-2023 09:00-0500 Respiratory rate 16 /min Dr. Joseph Smyth Work Phone: [facility] 06-29-2023 09:00-0500 SaO2% (BldA) [Mass fraction] 94 % Dr. Joseph Smyth Work Phone: [facility] 06-29-2023 09:00-0500 Systolic blood pressure 125 mm[Hg] Dr. Joseph Smyth Work Phone: [facility] 06-29-2023 07:13-0500 Body height 170.[address] Joseph Smyth Work Phone: [facility] 06-29-2023 07:13-0500 Body mass index (BMI) [Ratio] 43.5 kg/m2 Dr. Joseph Smyth Work Phone: [facility] 06-29-2023 07:13-0500 Body weight 126.[address] Joseph Smyth Work Phone: [facility] 05-05-2023 08:05-0500 Body mass index (BMI) [Ratio] 44.4 kg/m2 Dr. Joseph Smyth Work Phone: [facility] 05-05-2023 08:05-0500 Body temperature 97.4 [degF] Dr. Joseph Smyth Work Phone: [facility] 05-05-2023 08:05-0500 Body weight 128.[address] Joseph Smyth Work Phone: [facility] 05-05-2023 08:05-0500 Diastolic blood pressure 76 mm[Hg] Dr. Joseph Smyth Work Phone: [facility] 05-05-2023 08:05-0500 Heart rate 58 /min Dr. Joseph Smyth Work Phone: [facility] 05-05-2023 08:05-0500 Respiratory rate 20 /min Dr. Joseph Smyth Work Phone: [facility] 05-05-2023 08:05-0500 SaO2% (BldA) [Mass fraction] 97 % Dr. Joseph Smyth Work Phone: [facility] 05-05-2023 08:05-0500 Systolic blood pressure 136 mm[Hg] Dr. Joseph Smyth Work Phone: [facility] 05-04-2023 09:00-0500 Body temperature 98.4 [degF] Dr. Joseph Smyth Work Phone: [facility] 05-04-2023 09:00-0500 Diastolic blood pressure 56 mm[Hg] Dr. Joseph Smyth Work Phone: [facility] 05-04-2023 09:00-0500 Heart rate 65 /min Dr. Joseph Smyth Work Phone: [facility] 05-04-2023 09:00-0500 Respiratory rate 16 /min Dr. Joseph Smyth Work Phone: [facility] 05-04-2023 09:00-0500 SaO2% (BldA) [Mass fraction] 97 % Dr. Joseph Smyth Work Phone: [facility] 05-04-2023 09:00-0500 Systolic blood pressure 124 mm[Hg] Dr. Joseph Smyth Work Phone: [facility] 05-04-2023 07:31-0500 Body height 170.[address] Joseph Smyth Work Phone: [facility] 05-04-2023 07:31-0500 Body mass index (BMI) [Ratio] 44.4 kg/m2 Dr. Joseph Smyth Work Phone: [facility] 05-04-2023 07:31-0500 Body weight 128.[address] Joseph Smyth Work Phone: [facility] 04-24-2023 09:15-0500 Body height 170.[address] Joseph Smyth Work Phone: [facility] 04-24-2023 09:15-0500 Body mass index (BMI) [Ratio] 44.3 kg/m2 Dr. Joseph Smyth Work Phone: [facility] 04-24-2023 09:15-0500 Body temperature 97.3 [degF] Dr. Joseph Smyth Work Phone: [facility] 04-24-2023 09:15-0500 Body weight 128.[address] Joseph Smyth Work Phone: [facility] 04-24-2023 09:15-0500 Diastolic blood pressure 84 mm[Hg] Dr. Joseph Smyth Work Phone: [facility] 04-24-2023 09:15-0500 Heart rate 65 /min Dr. Joseph Smyth Work Phone: [facility] 04-24-2023 09:15-0500 Respiratory rate 16 /min Dr. Joseph Smyth Work Phone: [facility] 04-24-2023 09:15-0500 SaO2% (BldA) [Mass fraction] 99 % Dr. Joseph Smyth Work Phone: [facility] 04-24-2023 09:15-0500 Systolic blood pressure 130 mm[Hg] Dr. Joseph Smyth Work Phone: [facility] 03-19-2023 09:10-0400 Body temperature 97.4 [degF] Dr. Joseph Smyth Work Phone: [facility] 03-19-2023 09:10-0400 Diastolic blood pressure 58 mm[Hg] Dr. Joseph Smyth Work Phone: [facility] 03-19-2023 09:10-0400 Heart rate 53 /min Dr. Joseph Smyth Work Phone: [facility] 03-19-2023 09:10-0400 Respiratory rate 16 /min Dr. Joseph Smyth Work Phone: [facility] 03-19-2023 09:10-0400 SaO2% (BldA) [Mass fraction] 99 % Dr. Joseph Smyth Work Phone: [facility] 03-19-2023 09:10-0400 Systolic blood pressure 124 mm[Hg] Dr. Joseph Smyth Work Phone: [facility] 03-19-2023 07:52-0400 Body mass index (BMI) [Ratio] 43.4 kg/m2 Dr. Joseph Smyth Work Phone: [facility] 03-19-2023 07:52-0400 Body weight [address] Joseph Smyth Work Phone: [facility] 02-27-2023 07:55-0400 Body height 170.[address] Joseph Smyth Work Phone: [facility] 02-27-2023 07:55-0400 Body mass index (BMI) [Ratio] 44.3 kg/m2 Dr. Joseph Smyth Work Phone: [facility] 02-27-2023 07:55-0400 Body temperature 95.2 [degF] Dr. Joseph Smyth Work Phone: [facility] 02-27-2023 07:55-0400 Body weight 128.[address] Joseph Smyth Work Phone: [facility] 02-27-2023 07:55-0400 Diastolic blood pressure 86 mm[Hg] Dr. Joseph Smyth Work Phone: [facility] 02-27-2023 07:55-0400 Heart rate 72 /min Dr. Joseph Smyth Work Phone: [facility] 02-27-2023 07:55-0400 Respiratory rate 18 /min Dr. Joseph Smyth Work Phone: [facility] 02-27-2023 07:55-0400 SaO2% (BldA) [Mass fraction] 95 % Dr. Joseph Smyth Work Phone: [facility] 02-27-2023 07:55-0400 Systolic blood pressure 134 mm[Hg] Dr. Joseph Smyth Work Phone: [facility] 02-20-2023 13:27-0400 Respiratory rate 16 /min Dr. Joseph Smyth Work Phone: [facility] 02-20-2023 10:08-0400 Body height 170.[address] Joseph Smyth Work Phone: [facility] 02-20-2023 10:08-0400 Body mass index (BMI) [Ratio] 44.2 kg/m2 Dr. Joseph Smyth Work Phone: [facility] 02-20-2023 10:08-0400 Body temperature 97.1 [degF] Dr. Joseph Smyth Work Phone: [facility] 02-20-2023 10:08-0400 Body weight 128.[address] Joseph Smyth Work Phone: [facility] 02-20-2023 10:08-0400 Diastolic blood pressure 108 mm[Hg] Dr. Joseph Smyth Work Phone: [facility] 02-20-2023 10:08-0400 Heart rate 84 /min Dr. Joseph Smyth Work Phone: [facility] 02-20-2023 10:08-0400 SaO2% (BldA) [Mass fraction] 97 % Dr. Joseph Smyth Work Phone: [facility] 02-20-2023 10:08-0400 Systolic blood pressure 164 mm[Hg] Dr. Joseph Smyth Work Phone: [facility] 11-26-2022 11:32-0400 Body height 170.[address] Joseph Smyth Work Phone: [facility] 11-26-2022 11:32-0400 Body mass index (BMI) [Ratio] 44.8 kg/m2 Dr. Joseph Smyth Work Phone: [facility] 11-26-2022 11:32-0400 Body temperature 98.2 [degF] Dr. Joseph Smyth Work Phone: [facility] 11-26-2022 11:32-0400 Body weight 129.[address] Joseph Smyth Work Phone: [facility] 11-26-2022 11:32-0400 Diastolic blood pressure 82 mm[Hg] Dr. Joseph Smyth Work Phone: [facility] 11-26-2022 11:32-0400 Heart rate 71 /min Dr. Joseph Smyth Work Phone: [facility] 11-26-2022 11:32-0400 Respiratory rate 16 /min Dr. Joseph Smyth Work Phone: [facility] 11-26-2022 11:32-0400 SaO2% (BldA) [Mass fraction] 97 % Dr. Joseph Smyth Work Phone: [facility] 11-26-2022 11:32-0400 Systolic blood pressure 112 mm[Hg] Dr. Joseph Smyth Work Phone: [facility] 11-06-2022 10:37-0400 Body mass index (BMI) [Ratio] 44.6 kg/m2 Dr. Joseph Smyth Work Phone: [facility] 11-06-2022 10:37-0400 Body temperature 96.6 [degF] Dr. Joseph Smyth Work Phone: [facility] 11-06-2022 10:37-0400 Body weight 129.[address] Joseph Smyth Work Phone: [facility] 11-06-2022 10:37-0400 Diastolic blood pressure 84 mm[Hg] Dr. Joseph Smyth Work Phone: [facility] 11-06-2022 10:37-0400 Heart rate 69 /min Dr. Joseph Smyth Work Phone: [facility] 11-06-2022 10:37-0400 Respiratory rate 18 /min Dr. Joseph Smyth Work Phone: [facility] 11-06-2022 10:37-0400 SaO2% (BldA) [Mass fraction] 96 % Dr. Joseph Smyth Work Phone: [facility] 11-06-2022 10:37-0400 Systolic blood pressure 156 mm[Hg] Dr. Joseph Smyth Work Phone: [facility] 10-01-2022 13:32-0400 Body height 170.[address] Joseph Smyth Work Phone: [facility] 10-01-2022 13:32-0400 Body mass index (BMI) [Ratio] 44.8 kg/m2 Dr. Joseph Smyth Work Phone: [facility] 10-01-2022 13:32-0400 Body temperature 98 [degF] Dr. Joseph Smyth Work Phone: [facility] 10-01-2022 13:32-0400 Body weight 129.[address] Joseph Smyth Work Phone: [facility] 10-01-2022 13:32-0400 Diastolic blood pressure 78 mm[Hg] Dr. Joseph Smyth Work Phone: [facility] 10-01-2022 13:32-0400 Heart rate 85 /min Dr. Joseph Smyth Work Phone: [facility] 10-01-2022 13:32-0400 Respiratory rate 14 /min Dr. Joseph Smyth Work Phone: [facility] 10-01-2022 13:32-0400 SaO2% (BldA) [Mass fraction] 94 % Dr. Joseph Smyth Work Phone: [facility] 10-01-2022 13:32-0400 Systolic blood pressure 138 mm[Hg] Dr. Joseph Smyth Work Phone: [facility] 08-28-2022 15:39-0400 Body mass index (BMI) [Ratio] 44.8 kg/m2 Dr. Joseph Smyth Work Phone: [facility] 08-28-2022 15:39-0400 Body temperature 97.8 [degF] Dr. Joseph Smyth Work Phone: [facility] 08-28-2022 15:39-0400 Body weight 129.[address] Joseph Smyth Work Phone: [facility] 08-28-2022 15:39-0400 Diastolic blood pressure 100 mm[Hg] Dr. Joseph Smyth Work Phone: [facility] 08-28-2022 15:39-0400 Heart rate 85 /min Dr. Joseph Smyth Work Phone: [facility] 08-28-2022 15:39-0400 Respiratory rate 16 /min Dr. Joseph Smyth Work Phone: [facility] 08-28-2022 15:39-0400 SaO2% (BldA) [Mass fraction] 98 % Dr. Joseph Smyth Work Phone: [facility] 08-28-2022 15:39-0400 Systolic blood pressure 150 mm[Hg] Dr. Joseph Smyth Work Phone: [facility] 05-19-2022 08:52-0500 Body temperature 98.5 [degF] Dr. Joseph Smyth Work Phone: [facility] Work Phone: 05-19-2022 08:52-0500 Diastolic blood pressure 88 mm[Hg] Dr. Joseph Smyth Work Phone: [facility] Work Phone: 05-19-2022 08:52-0500 Heart rate 75 /min Dr. Joseph Smyth Work Phone: [facility] Work Phone: 05-19-2022 08:52-0500 Respiratory rate 16 /min Dr. Joseph Smyth Work Phone: [facility] Work Phone: 05-19-2022 08:52-0500 SaO2% (BldA) [Mass fraction] 97 % Dr. Joseph Smyth Work Phone: [facility] Work Phone: 05-19-2022 08:52-0500 Systolic blood pressure 120 mm[Hg] Dr. Joseph Smyth Work Phone: [facility] Work Phone: 05-19-2022 06:42-0500 Body height 170.[address] Joseph Smyth Work Phone: [facility] Work Phone: 05-19-2022 06:42-0500 Body mass index (BMI) [Ratio] 45.2 kg/m2 Dr. Joseph Smyth Work Phone: [facility] Work Phone: 05-19-2022 06:42-0500 Body weight 131.[address] Joseph Smyth Work Phone: [facility] Work Phone: 05-16-2022 08:54-0500 Body mass index (BMI) [Ratio] 44.9 kg/m2 Dr. Joseph Smyth Work Phone: [facility] Work Phone: 05-16-2022 08:54-0500 Body temperature 96.7 [degF] Dr. Joseph Smyth Work Phone: [facility] Work Phone: 05-16-2022 08:54-0500 Body weight 130.[address] Joseph Smyth Work Phone: [facility] Work Phone: 05-16-2022 08:54-0500 Diastolic blood pressure 80 mm[Hg] Dr. Joseph Smyth Work Phone: [facility] Work Phone: 05-16-2022 08:54-0500 Heart rate 93 /min Dr. Joseph Smyth Work Phone: [facility] Work Phone: 05-16-2022 08:54-0500 SaO2% (BldA) [Mass fraction] 97 % Dr. Joseph Smyth Work Phone: [facility] Work Phone: 05-16-2022 08:54-0500 Systolic blood pressure 110 mm[Hg] Dr. Joseph Smyth Work Phone: [facility] Work Phone: 04-15-2022 10:43-0400 Body mass index (BMI) [Ratio] 46.5 kg/m2 Dr. Joseph Smyth Work Phone: [facility] Work Phone: 04-15-2022 10:43-0400 Body temperature 96.6 [degF] Dr. Joseph Smyth Work Phone: [facility] Work Phone: 04-15-2022 10:43-0400 Body weight 134.[address] Joseph Smyth Work Phone: [facility] Work Phone: 04-15-2022 10:43-0400 Diastolic blood pressure 66 mm[Hg] Dr. Joseph Smyth Work Phone: [facility] Work Phone: 04-15-2022 10:43-0400 Heart rate 79 /min Dr. Joseph Smyth Work Phone: [facility] Work Phone: 04-15-2022 10:43-0400 Respiratory rate 20 /min Dr. Joseph Smyth Work Phone: [facility] Work Phone: 04-15-2022 10:43-0400 SaO2% (BldA) [Mass fraction] 95 % Dr. Joseph Smyth Work Phone: [facility] Work Phone: 04-15-2022 10:43-0400 Systolic blood pressure 108 mm[Hg] Dr. Joseph Smyth Work Phone: [facility] Work Phone: 04-07-2022 08:09-0400 Body height 170.[address] Joseph Smyth Work Phone: [facility] Work Phone: 04-07-2022 08:09-0400 Body mass index (BMI) [Ratio] 45.4 kg/m2 Dr. Joseph Smyth Work Phone: [facility] Work Phone: 04-07-2022 08:09-0400 Body temperature 97.8 [degF] Dr. Joseph Smyth Work Phone: [facility] Work Phone: 04-07-2022 08:09-0400 Body weight 131.[address] Joseph Smyth Work Phone: [facility] Work Phone: 04-07-2022 08:09-0400 Diastolic blood pressure 82 mm[Hg] Dr. Joseph Smyth Work Phone: [facility] Work Phone: 04-07-2022 08:09-0400 Heart rate 69 /min Dr. Joseph Smyth Work Phone: [facility] Work Phone: 04-07-2022 08:09-0400 Respiratory rate 14 /min Dr. Joesph Smyth Work Phone: [facility] Work Phone: 04-07-2022 08:09-0400 SaO2% (BldA) [Mass fraction] 96 % Dr. Joseph Smyth Work Phone: [facility] Work Phone: 04-07-2022 08:09-0400 Systolic blood pressure 146 mm[Hg] Dr. Joseph Smyth Work Phone: [facility] Work Phone: 04-03-2022 04:19-0400 Body height 170.[address] Joseph Smyth Work Phone: [facility] Work Phone: 04-03-2022 04:19-0400 Body mass index (BMI) [Ratio] 45.3 kg/m2 Dr. Joseph Smyth Work Phone: [facility] Work Phone: 04-03-2022 04:19-0400 Body temperature 98.1 [degF] Dr. Joseph Smyth Work Phone: [facility] Work Phone: 04-03-2022 04:19-0400 Body weight 131.[address] Joseph Smyth Work Phone: [facility] Work Phone: 04-03-2022 04:19-0400 Diastolic blood pressure 80 mm[Hg] Dr. Joseph Smyth Work Phone: [facility] Work Phone: 04-03-2022 04:19-0400 Heart rate 94 /min Dr. Joseph Smyth Work Phone: [facility] Work Phone: 04-03-2022 04:19-0400 Respiratory rate 18 /min [facility]th [facility] Phone[facility] [facility] Work Phone: 04-03-2022 04:19-0400 SaO2% (BldA) [Mass fraction] 98 % Dr. Joseph Smyth Work Phone: [facility] Work Phone: 04-03-2022 04:19-0400 Systolic blood pressure 174 mm[Hg] Dr. Joseph Smyth Work Phone: [facility] Work Phone: 03-17-2022 08:34-0400 Body temperature 98.3 [degF] Dr. Joseph Smyth Work Phone: [facility] Work Phone: 03-17-2022 08:34-0400 Diastolic blood pressure 53 mm[Hg] Dr. Joseph Smyth Work Phone: [facility] Work Phone: 03-17-2022 08:34-0400 Heart rate 70 /min Dr. Joseph Smyth Work Phone: [facility] Work Phone: 03-17-2022 08:34-0400 Respiratory rate 16 /min Dr. Joseph Smyth Work Phone: [facility] Work Phone: 03-17-2022 08:34-0400 SaO2% (BldA) [Mass fraction] 97 % Dr. Joseph Smyth Work Phone: [facility] Work Phone: 03-17-2022 08:34-0400 Systolic blood pressure 138 mm[Hg] Dr. Joseph Smyth Work Phone: [facility] Work Phone: 03-17-2022 06:41-0400 Body height 170.[address] Joseph Smyth Work Phone: [facility] Work Phone: 03-17-2022 06:41-0400 Body mass index (BMI) [Ratio] 45.8 kg/m2 Dr. Joseph Smyth Work Phone: [facility] Work Phone: 03-17-2022 06:41-0400 Body weight 132.[address] Joseph Smyth Work Phone: [facility] Work Phone: 03-03-2022 13:11-0400 Body mass index (BMI) [Ratio] 46.7 kg/m2 Dr. Joseph Smyth Work Phone: [facility] Work Phone: 03-03-2022 13:11-0400 Body temperature 97.5 [degF] Dr. Joseph Smyth Work Phone: [facility] Work Phone: 03-03-2022 13:11-0400 Body weight 135.[address] Joseph Smyth Work Phone: [facility] Work Phone: 03-03-2022 13:11-0400 Diastolic blood pressure 74 mm[Hg] Dr. Joseph Smyth Work Phone: [facility] Work Phone: 03-03-2022 13:11-0400 Heart rate 80 /min Dr. Joseph Smyth Work Phone: [facility] Work Phone: 03-03-2022 13:11-0400 Respiratory rate 16 /min Dr. Joseph Smyth Work Phone: [facility] Work Phone: 03-03-2022 13:11-0400 SaO2% (BldA) [Mass fraction] 96 % Dr. Joseph Smyth Work Phone: [facility] Work Phone: 03-03-2022 13:11-0400 Systolic blood pressure 116 mm[Hg] Dr. Joseph Smyth Work Phone: [facility] Work Phone: 02-25-2022 14:21-0400 Body mass index (BMI) [Ratio] 46.3 kg/m2 Dr. Joseph Smyth Work Phone: [facility] Work Phone: 02-25-2022 14:21-0400 Body temperature 98.3 [degF] Dr. Joseph Smyth Work Phone: [facility] Work Phone: 02-25-2022 14:21-0400 Body weight 134.[address] Joseph Smyth Work Phone: [facility] Work Phone: 02-25-2022 14:21-0400 Diastolic blood pressure 96 mm[Hg] Dr. Joseph Smyth Work Phone: [facility] Work Phone: 02-25-2022 14:21-0400 Heart rate 86 /min Dr. Joseph Smyth Work Phone: [facility] Work Phone: 02-25-2022 14:21-0400 Respiratory rate 18 /min Dr. Joseph Smyth Work Phone: [facility] Work Phone: 02-25-2022 14:21-0400 SaO2% (BldA) [Mass fraction] 97 % Dr. Joseph Smyth Work Phone: [facility] Work Phone: 02-25-2022 14:21-0400 Systolic blood pressure 166 mm[Hg] Dr. Joseph Smyth Work Phone: [facility] Work Phone: 02-05-2022 08:29-0400 Body mass index (BMI) [Ratio] 46.7 kg/m2 Dr. Joseph Smyth Work Phone: [facility] Work Phone: 02-05-2022 08:29-0400 Body temperature 98 [degF] Dr. Joseph Smyth Work Phone: [facility] Work Phone: 02-05-2022 08:29-0400 Body weight 135.[address] Joseph Smyth Work Phone: [facility] Work Phone: 02-05-2022 08:29-0400 Diastolic blood pressure 78 mm[Hg] Dr. Joseph Smyth Work Phone: [facility] Work Phone: 02-05-2022 08:29-0400 Heart rate 85 /min Dr. Joseph Smyth Work Phone: [facility] Work Phone: 02-05-2022 08:29-0400 Respiratory rate 17 /min Dr. Joseph Smyth Work Phone: [facility] Work Phone: 02-05-2022 08:29-0400 SaO2% (BldA) [Mass fraction] 93 % Dr. Joseph Smyth Work Phone: [facility] Work Phone: 02-05-2022 08:29-0400 Systolic blood pressure 131 mm[Hg] Dr. Joseph Smyth Work Phone: [facility] Work Phone: 01-21-2022 08:31-0400 Diastolic blood pressure 86 mm[Hg] Dr. Joseph Smyth Work Phone: [facility] Work Phone: 01-21-2022 08:31-0400 Heart rate 85 /min Dr. Joseph Smyth Work Phone: [facility] Work Phone: 01-21-2022 08:31-0400 Systolic blood pressure 124 mm[Hg] Dr. Joseph Smyth Work Phone: [facility] Work Phone: 01-21-2022 08:14-0400 Body height 170.[address] Joseph Smyth Work Phone: [facility] Work Phone: 01-21-2022 08:14-0400 Body mass index (BMI) [Ratio] 46.3 kg/m2 Dr. Joseph Smyth Work Phone: [facility] Work Phone: 01-21-2022 08:14-0400 Body temperature 96.8 [degF] Dr. Joseph Smyth Work Phone: [facility] Work Phone: 01-21-2022 08:14-0400 Body weight 134.[address] Joseph Smyth Work Phone: [facility] Work Phone: 01-21-2022 08:14-0400 Respiratory rate 16 /min Dr. Joseph Smyth Work Phone: [facility] Work Phone: 01-21-2022 08:14-0400 SaO2% (BldA) [Mass fraction] 98 % Dr. Joseph Smyth Work Phone: [facility] Work Phone: 12-30-2021 09:25-0400 Body temperature 97.7 [degF] Dr. Joseph Smyth Work Phone: [facility] Work Phone: 12-30-2021 09:25-0400 Diastolic blood pressure 78 mm[Hg] Dr. Joseph Smyth Work Phone: [facility] Work Phone: 12-30-2021 09:25-0400 Heart rate 53 /min Dr. Joseph Smyth Work Phone: [facility] Work Phone: 12-30-2021 09:25-0400 Respiratory rate 16 /min Dr. Joseph Smyth Work Phone: [facility] Work Phone: 12-30-2021 09:25-0400 SaO2% (BldA) [Mass fraction] 95 % Dr. Joseph Smyth Work Phone: [facility] Work Phone: 12-30-2021 09:25-0400 Systolic blood pressure 120 mm[Hg] Dr. Joseph Smyth Work Phone: [facility] Work Phone: 12-30-2021 08:14-0400 Body height 170.[address] Joseph Smyth Work Phone: [facility] Work Phone: 12-30-2021 08:14-0400 Body mass index (BMI) [Ratio] 45.9 kg/m2 Dr. Joseph Smyth Work Phone: [facility] Work Phone: 12-30-2021 08:14-0400 Body weight [address] Joseph Smyth Work Phone: [facility] Work Phone: 12-03-2021 09:03-0400 Body mass index (BMI) [Ratio] 46.5 kg/m2 Dr. Joseph Smyth Work Phone: [facility] Work Phone: 12-03-2021 09:03-0400 Body temperature 98 [degF] Dr. Joseph Smyth Work Phone: [facility] Work Phone: 12-03-2021 09:03-0400 Body weight 134.[address] Joseph Smyth Work Phone: [facility] Work Phone: 12-03-2021 09:03-0400 Diastolic blood pressure 80 mm[Hg] Dr. Joseph Smyth Work Phone: [facility] Work Phone: 12-03-2021 09:03-0400 Heart rate 72 /min Dr. Joseph Smyth Work Phone: [facility] Work Phone: 12-03-2021 09:03-0400 Respiratory rate 16 /min Dr. Joseph Smyth Work Phone: [facility] Work Phone: 12-03-2021 09:03-0400 SaO2% (BldA) [Mass fraction] 97 % Dr. Joseph Smyth Work Phone: [facility] Work Phone: 12-03-2021 09:03-0400 Systolic blood pressure 148 mm[Hg] Dr. Joseph Smyth Work Phone: [facility] Work Phone: 10-28-2021 08:10-0400 Body temperature 98.4 [degF] Dr. Joseph Smyth Work Phone: [facility] Work Phone: 10-28-2021 08:10-0400 Diastolic blood pressure 66 mm[Hg] Dr. Joseph Smyth Work Phone: [facility] Work Phone: 10-28-2021 08:10-0400 Heart rate 67 /min Dr. Joseph Smyth Work Phone: [facility] Work Phone: 10-28-2021 08:10-0400 Respiratory rate 16 /min Dr. Joseph Smyth Work Phone: [facility] Work Phone: 10-28-2021 08:10-0400 SaO2% (BldA) [Mass fraction] 94 % Dr. Joseph Smyth Work Phone: [facility] Work Phone: 10-28-2021 08:10-0400 Systolic blood pressure 143 mm[Hg] Dr. Joseph Smyth Work Phone: [facility] Work Phone: 10-28-2021 06:24-0400 Body height 170.[address] Joseph Smyth Work Phone: [facility] Work Phone: 10-28-2021 06:24-0400 Body mass index (BMI) [Ratio] 45.7 kg/m2 Dr. Joseph Smyth Work Phone: [facility] Work Phone: 10-28-2021 06:24-0400 Body weight 132.[address] Joseph Smyth Work Phone: [facility] Work Phone: 10-22-2021 08:24-0400 Body mass index (BMI) [Ratio] 46.7 kg/m2 Dr. Joseph Smyth Work Phone: [facility] Work Phone: 10-22-2021 08:24-0400 Body weight 135.[address] Joseph Smyth Work Phone: [facility] Work Phone: 10-22-2021 08:24-0400 Diastolic blood pressure 86 mm[Hg] Dr. Joseph Smyth Work Phone: [facility] Work Phone: 10-22-2021 08:24-0400 Heart rate 80 /min Dr. Joseph Smyth Work Phone: [facility] Work Phone: 10-22-2021 08:24-0400 Respiratory rate 18 /min Dr. Joseph Smyth Work Phone: [facility] Work Phone: 10-22-2021 08:24-0400 SaO2% (BldA) [Mass fraction] 94 % Dr. Joseph Smyth Work Phone: [facility] Work Phone: 10-22-2021 08:24-0400 Systolic blood pressure 156 mm[Hg] Dr. Joseph Smyth Work Phone: [facility] Work Phone: 10-22-2021 08:24-0400 Body mass index (BMI) [Ratio] 46.7 kg/m2 Dr. Joseph Smyth Work Phone: [facility] Work Phone: 10-22-2021 08:24-0400 Body weight 135.[address] Joseph Smyth Work Phone: [facility] Work Phone: 10-22-2021 08:24-0400 Diastolic blood pressure 86 mm[Hg] Dr. Joseph Smyth Work Phone: [facility] Work Phone: 10-22-2021 08:24-0400 Heart rate 80 /min Dr. Joseph Smyth Work Phone: [facility] Work Phone: 10-22-2021 08:24-0400 Respiratory rate 18 /min Dr. Joseph Smyth Work Phone: [facility] Work Phone: 10-22-2021 08:24-0400 SaO2% (BldA) [Mass fraction] 94 % Dr. Joseph Smyth Work Phone: [facility] Work Phone: 10-22-2021 08:24-0400 Systolic blood pressure 156 mm[Hg] Dr. Joseph Smyth Work Phone: [facility] Work Phone: 10-08-2021 09:36-0400 Diastolic blood pressure 92 mm[Hg] Dr. Joseph Smyth Work Phone: [facility] Work Phone: 10-08-2021 09:36-0400 Systolic blood pressure 138 mm[Hg] Dr. Joseph Smyth Work Phone: [facility] Work Phone: 10-08-2021 09:36-0400 Body mass index (BMI) [Ratio] 47.7 kg/m2 Dr. Joseph Smyth Work Phone: [facility] Work Phone: 10-08-2021 09:36-0400 Body temperature 97.3 [degF] Dr. Joseph Smyth Work Phone: [facility] Work Phone: 10-08-2021 09:36-0400 Body weight 138.[address] Joseph Smyth Work Phone: [facility] Work Phone: 10-08-2021 09:36-0400 Heart rate 72 /min Dr. Joseph Smyth Work Phone: [facility] Work Phone: 10-08-2021 09:36-0400 SaO2% (BldA) [Mass fraction] 97 % Dr. Joseph Smyth Work Phone: [facility] Work Phone: 10-08-2021 09:36-0400 Body mass index (BMI) [Ratio] 47.7 kg/m2 Dr. Joseph Smyth Work Phone: [facility] Work Phone: 10-08-2021 09:36-0400 Body temperature 97.3 [degF] Dr. Joseph Smyth Work Phone: [facility] Work Phone: 10-08-2021 09:36-0400 Body weight 138.[address] Joseph Smyth Work Phone: [facility] Work Phone: 10-08-2021 09:36-0400 Diastolic blood pressure 92 mm[Hg] Dr. Joseph Smyth Work Phone: [facility] Work Phone: 10-08-2021 09:36-0400 Heart rate 72 /min Dr. Joseph Smyth Work Phone: [facility] Work Phone: 10-08-2021 09:36-0400 SaO2% (BldA) [Mass fraction] 97 % Dr. Joseph Smyth Work Phone: [facility] Work Phone: 10-08-2021 09:36-0400 Systolic blood pressure 138 mm[Hg] Dr. Joseph Smyth Work Phone: [facility] Work Phone: 10-08-2021 07:42-0400 Body mass index (BMI) [Ratio] 48 kg/m2 Dr. Joseph Smyth Work Phone: [facility] Work Phone: 10-08-2021 07:42-0400 Body temperature 97.2 [degF] Dr. Joseph Smyth Work Phone: [facility] Work Phone: 10-08-2021 07:42-0400 Body weight 139.[address] Joseph Smyth Work Phone: [facility] Work Phone: 10-08-2021 07:42-0400 Diastolic blood pressure 105 mm[Hg] Dr. Joseph Smyth Work Phone: [facility] Work Phone: 10-08-2021 07:42-0400 Heart rate 80 /min Dr. Joseph Smyth Work Phone: [facility] Work Phone: 10-08-2021 07:42-0400 Respiratory rate 20 /min Dr. Joseph Smyth Work Phone: [facility] Work Phone: 10-08-2021 07:42-0400 SaO2% (BldA) [Mass fraction] 96 % Dr. Joseph Smyth Work Phone: [facility] Work Phone: 10-08-2021 07:42-0400 Systolic blood pressure 159 mm[Hg] Dr. Joseph Smyth Work Phone: [facility] Work Phone: 10-08-2021 07:42-0400 Body mass index (BMI) [Ratio] 48 kg/m2 Dr. Joseph Smyth Work Phone: [facility] Work Phone: 10-08-2021 07:42-0400 Body temperature 97.2 [degF] Dr. Joseph Smyth Work Phone: [facility] Work Phone: 10-08-2021 07:42-0400 Body weight 139.[address] Joseph Smyth Work Phone: [facility] Work Phone: 10-08-2021 07:42-0400 Diastolic blood pressure 105 mm[Hg] Dr. Joseph Smyth Work Phone: [facility] Work Phone: 10-08-2021 07:42-0400 Heart rate 80 /min Dr. Joseph Smyth Work Phone: [facility] Work Phone: 10-08-2021 07:42-0400 Respiratory rate 20 /min Dr. Joseph Smyth Work Phone: [facility] Work Phone: 10-08-2021 07:42-0400 SaO2% (BldA) [Mass fraction] 96 % Dr. Joseph Smyth Work Phone: [facility] Work Phone: 10-08-2021 07:42-0400 Systolic blood pressure 159 mm[Hg] Dr. Joseph Smyth Work Phone: [facility] Work Phone: 09-21-2021 18:46-0400 Heart rate 70 /min Dr. Joseph Smyth Work Phone: [facility] Work Phone: 09-21-2021 18:46-0400 Respiratory rate 18 /min Dr. Joseph Smyth Work Phone: [facility] Work Phone: 09-21-2021 18:46-0400 SaO2% (BldA) [Mass fraction] 97 % Dr. Joseph Smyth Work Phone: [facility] Work Phone: 09-21-2021 18:30-0400 Diastolic blood pressure 70 mm[Hg] Dr. Joseph Smyth Work Phone: [facility] Work Phone: 09-21-2021 18:30-0400 Systolic blood pressure 166 mm[Hg] Dr. Joseph Smyth Work Phone: [facility] Work Phone: 09-21-2021 17:45-0400 Body height 170.[address] Joseph Smyth Work Phone: [facility] Work Phone: 09-21-2021 17:45-0400 Body mass index (BMI) [Ratio] 47 kg/m2 Dr. Joseph Smyth Work Phone: [facility] Work Phone: 09-21-2021 17:45-0400 Body temperature 97.5 [degF] Dr. Joseph Smyth Work Phone: [facility] Work Phone: 09-21-2021 17:45-0400 Body weight 136.[address] Joseph Smyth Work Phone: [facility] Work Phone: 09-11-2021 09:10-0400 Body mass index (BMI) [Ratio] 47 kg/m2 Dr. Joseph Smyth Work Phone: [facility] Work Phone: 09-11-2021 09:10-0400 Body temperature 96.6 [degF] Dr. Joseph Smyth Work Phone: [facility] Work Phone: 09-11-2021 09:10-0400 Body weight 136.[address] Joseph Smyth Work Phone: [facility] Work Phone: 09-11-2021 09:10-0400 Diastolic blood pressure 84 mm[Hg] Dr. Joseph Smyth Work Phone: [facility] Work Phone: 09-11-2021 09:10-0400 Heart rate 75 /min Dr. Joseph Smyth Work Phone: [facility] Work Phone: 09-11-2021 09:10-0400 Respiratory rate 18 /min Dr. Joseph Smyth Work Phone: [facility] Work Phone: 09-11-2021 09:10-0400 SaO2% (BldA) [Mass fraction] 99 % Dr. Joseph Smyth Work Phone: [facility] Work Phone: 09-11-2021 09:10-0400 Systolic blood pressure 138 mm[Hg] Dr. Joseph Smyth Work Phone: [facility] Work Phone: 09-11-2021 09:10-0400 Body mass index (BMI) [Ratio] 47 kg/m2 Dr. Joseph Smyth Work Phone: [facility] Work Phone: 09-11-2021 09:10-0400 Body temperature 96.6 [degF] Dr. Joseph Smyth Work Phone: [facility] Work Phone: 09-11-2021 09:10-0400 Body weight 136.[address] Joseph Smyth Work Phone: [facility] Work Phone: 09-11-2021 09:10-0400 Diastolic blood pressure 84 mm[Hg] Dr. Joseph Smyth Work Phone: [facility] Work Phone: 09-11-2021 09:10-0400 Heart rate 75 /min Dr. Joseph Smyth Work Phone: [facility] Work Phone: 09-11-2021 09:10-0400 Respiratory rate 18 /min Dr. Joseph Smyth Work Phone: [facility] Work Phone: 09-11-2021 09:10-0400 SaO2% (BldA) [Mass fraction] 99 % Dr. Jospeh Smyth Work Phone: [facility] Work Phone: 09-11-2021 09:10-0400 Systolic blood pressure 138 mm[Hg] Dr. Joseph Smyth Work Phone: [facility] Work Phone: 09-04-2021 08:13-0400 Body mass index (BMI) [Ratio] 46.3 kg/m2 Dr. Joseph Smyth Work Phone: [facility] Work Phone: 09-04-2021 08:13-0400 Body temperature 97.4 [degF] Dr. Joseph Smyth Work Phone: [facility] Work Phone: 09-04-2021 08:13-0400 Body weight 134.[address] Joseph Smyth Work Phone: [facility] Work Phone: 09-04-2021 08:13-0400 Diastolic blood pressure 84 mm[Hg] Dr. Joseph Smyth Work Phone: [facility] Work Phone: 09-04-2021 08:13-0400 Heart rate 70 /min Dr. Joseph Smyth Work Phone: [facility] Work Phone: 09-04-2021 08:13-0400 Respiratory rate 14 /min Dr. Joseph Smyth Work Phone: [facility] Work Phone: 09-04-2021 08:13-0400 SaO2% (BldA) [Mass fraction] 97 % Dr. Joseph Smyth Work Phone: [facility] Work Phone: 09-04-2021 08:13-0400 Systolic blood pressure 136 mm[Hg] Dr. Joseph Smyth Work Phone: [facility] Work Phone: 09-04-2021 08:13-0400 Body mass index (BMI) [Ratio] 46.3 kg/m2 Dr. Joseph Smyth Work Phone: [facility] Work Phone: 09-04-2021 08:13-0400 Body temperature 97.4 [degF] Dr. Joseph Smyth Work Phone: [facility] Work Phone: 09-04-2021 08:13-0400 Body weight 134.[address] Joseph Smyth Work Phone: [facility] Work Phone: 09-04-2021 08:13-0400 Diastolic blood pressure 84 mm[Hg] Dr. Joseph Smyth Work Phone: [facility] Work Phone: 09-04-2021 08:13-0400 Heart rate 70 /min Dr. Joseph Smyth Work Phone: [facility] Work Phone: 09-04-2021 08:13-0400 Respiratory rate 14 /min Dr. Joseph Smyth Work Phone: [facility] Work Phone: 09-04-2021 08:13-0400 SaO2% (BldA) [Mass fraction] 97 % Dr. Joseph Smyth Work Phone: [facility] Work Phone: 09-04-2021 08:13-0400 Systolic blood pressure 136 mm[Hg] Dr. Joseph Smyth Work Phone: [facility] Work Phone: 06-12-2021 07:06-0500 Body mass index (BMI) [Ratio] 45.8 kg/m2 Dr. Joseph Smyth Work Phone: [facility] Work Phone: 06-12-2021 07:06-0500 Body temperature 95.5 [degF] Dr. Joseph Smyth Work Phone: [facility] Work Phone: 06-12-2021 07:06-0500 Body weight 132.[address] Joseph Smyth Work Phone: [facility] Work Phone: 06-12-2021 07:06-0500 Diastolic blood pressure 79 mm[Hg] Dr. Joseph Smyth Work Phone: [facility] Work Phone: 06-12-2021 07:06-0500 Heart rate 82 /min Dr. Joseph Smyth Work Phone: [facility] Work Phone: 06-12-2021 07:06-0500 Respiratory rate 16 /min Dr. Joseph Smyth Work Phone: [facility] Work Phone: 06-12-2021 07:06-0500 SaO2% (BldA) [Mass fraction] 94 % Dr. Joseph Smyth Work Phone: [facility] Work Phone: 06-12-2021 07:06-0500 Systolic blood pressure 132 mm[Hg] Dr. Joseph Smyth Work Phone: [facility] Work Phone: Encounters Encounter Date Encounter Type Care Provider Facility Start: 03-10-2025 ambulatory Joseph Mendozai ty:[facility] Start: 02-27-2025 End: 02-27-[address] Joseph Smyth MD -[facility] Work Phone: Start: 02-27-2025 End: 02-27-[address] Joseph Smyth MD [facility] Start: 02-27-2025 End: 02-27-[address] Joseph Smyth MD Work Phone: -[facility] Start: 01-23-2025 End: 01-23-[address] Joseph Smyth MD Work Phone: -Laboratory Start: 01-23-2025 End: 01-23-[address] Joseph Smyth MD -Laboratory Work Phone: Start: 01-23-2025 End: 01-23-2025 ambulatory Joseph Smyth Facility:[facility] Start: 12-28-2024 End: 12-28-2024 Emergency department patient visit Dr. Joseph Smyth MD Work Phone: -Emergency Department Work Phone: Start: 12-06-2024 End: 12-06-2024 Patient encounter procedure Angi RICHARD -[facility] Work Phone: Start: 12-06-2024 End: 12-06-[address] Joseph Smyth MD Work Phone: [facility] Work Phone: Start: 11-28-2024 End: 11-28-[address] Joseph Smyth MD -[facility] Work Phone: Start: 11-28-2024 End: 11-28-[address] Joseph Smyth MD Work Phone: [facility] Work Phone: Start: 11-25-2024 End: 11-25-[address] Joseph Smyth MD Work Phone: [facility] Work Phone: Start: 11-25-2024 End: 11-25-[address] Joseph Smyth MD -Laboratory Work Phone: Start: 11-25-2024 End: 11-25-2024 ambulatory Joseph Smyth Facility:[facility] Start: 10-26-2024 ambulatory Brant Langley Facility :[facility] Start: 10-26-2024 Non-patient / Non-visit Brant Langley DO -[facility] Start: 10-26-2024 End: 10-26-2024 Admission to same day surgery center Brantsarahi Langley DO -Endoscopy Work Phone: Start: 10-26-2024 End: 10-26-[address] Joseph Smyth MD Work Phone: [facility] Work Phone: Start: 10-18-2024 End: 10-18-2024 Patient encounter procedure Brant Langley DO -[facility] Work Phone: Start: 10-18-2024 End: 10-18-2024 ambulatory Brant Korin Facility:[facility] Start: 09-23-2024 End: 09-23-[address] Joseph Smyth MD -[facility] Work Phone: Start: 09-23-2024 End: 09-23-2024 ambulatory Joseph Smyth Facility:[facility] Start: 09-07-2024 ambulatory Brant Langley Facility :[facility] Start: 08-29-2024 End: 08-29-[address] Joseph Smyth MD -[facility] Work Phone: Start: 08-29-2024 End: 08-29-2024 ambulatory Joseph Smyth Facility:[facility] Start: 05-30-2024 End: 05-30-2024 Phys/qhp telephone evaluation 5-10 min Autumn Poole PA-C Work Phone: [facility] Comment on above: IPMN (intraductal pa pillary mucinous neoplasm) (Primary Dx) Start: 05-30-2024 End: 05-30-2024 [facility] Start: 05-24-2024 End: 05-24-2024 ambulatory [facility] Facility:[facility] Start: 05-10-2024 End: 05-10-2024 ambulatory [facility] Facility:[facility] Start: 05-02-2024 End: 05-02-2024 ambulatory [facility] Facility:[facility] Start: 05-02-2024 End: 05-02-2024 ambulatory [facility] Facility:[facility] Start: 04-22-2024 End: 04-22-[address] [facility] Facility:[facility] Start: 04-15-2024 End: 04-15-[address] [facility] Facility:[facility] Start: 04-06-2024 End: 04-06-2024 ambulatory [facility] Start: 04-06-2024 End: 04-06-2024 Subsequent hospital visit by physician Rad External Film [facility] Comment on above: IPMN (intraductal pa pillary mucinous neoplasm) Start: 03-10-2024 End: 03-10-2024 ambulatory [facility] Facility:[facility] Start: 01-07-2024 End: 01-07-2024 ambulatory [facility] Start: 01-07-2024 End: 01-07-2024 Patient encounter procedure [facility] Start: 08-21-2023 End: 08-21-2023 Office outpatient new 45 minutes Autumn Poole PA-C Work Phone: [facility] Comment on above: IPMN (intraductal pa pillary mucinous neoplasm) (Primary Dx) Start: 08-21-2023 End: 08-21-2023 ambulatory [facility] Start: 07-29-2023 End: 07-29-[address] Joseph Smyth Work Phone: [facility] Work Phone: Start: 07-29-2023 End: 07-29-[address] Joseph Smyth Work Phone: [facility] Work Phone: Start: 07-09-2023 End: 07-09-[address] Joseph Smyth Work Phone: [facility] Work Phone: Start: 07-01-2023 End: 07-01-[address] Joseph Smyth Work Phone: [facility] Work Phone: Start: 07-01-2023 End: 07-01-[address] Joseph Smyth Work Phone: [facility]-Laboratory Work Phone: Start: 06-29-2023 End: 06-29-2023 Admission to same day surgery center Dr. Joseph Smyth Work Phone: [facility]-Surgical Day Care Start: 06-29-2023 End: 06-29-[address] Joseph Smyth Work Phone: [facility] Work Phone: Start: 05-19-2023 End: 05-19-[address] Joseph Smyth Work Phone: [facility] Work Phone: Start: 05-05-2023 End: 05-05-[address] Joseph Smyth Work Phone: [facility]-P[facility] Work Phone: Start: 05-04-2023 End: 05-04-2023 Admission to same day surgery center Dr. Joseph Smyth Work Phone: [facility] Day [facility] Start: 05-04-2023 End: 05-04-[address] Joseph Smyth Work Phone: [facility] Work Phone: Start: 04-24-2023 End: 04-24-[address] Joseph Smyth Work Phone: [facility] Work Phone: Start: 04-23-2023 End: 04-23-[address] Joseph Smyth Work Phone: [facility] Work Phone: Start: 04-21-2023 End: 04-21-[address] Joseph Smyth Work Phone: [facility] Work Phone: Start: 04-21-2023 End: 04-21-[address] Joseph Smyth Work Phone: [facility]-Laboratory Work Phone: Start: 03-19-2023 Non-patient / Non-visit [facility] Start: 03-19-2023 End: 03-19-2023 Admission to same day surgery center Dr. Joseph Smyth Work Phone: [facility]-Endoscopy Work Phone: Start: 03-09-2023 End: 03-09-[address] Joseph Smyth Work Phone: [facility] Work Phone: Start: 03-09-2023 End: 03-09-[address] [facility] Start: 02-27-2023 End: 02-27-[address] Joseph Smyth Work Phone: [facility] Work Phone: Start: 02-27-2023 End: 02-27-[address] Joseph Smyth Work Phone: [facility] Work Phone: Start: 02-20-2023 End: 02-20-2023 Emergency department patient visit Dr. Joseph Smyth Work Phone: [facility]-Emergency Department Work Phone: Start: 12-22-2022 End: 12-22-[address] Joseph Smyth Work Phone: [facility] Work Phone: Start: 12-22-2022 End: 12-22-[address] [facility]myth [facility] Start: 12-04-2022 End: 12-04-[address] Joseph Smyth Work Phone: [facility] Work Phone: Start: 12-04-2022 End: 12-04-[address] Joseph [facility]myth [facility] Start: 11-28-2022 End: 11-28-[address] Joseph Smyth Work Phone: [facility] Work Phone: Start: 11-28-2022 End: 11-28-[address] Joseph Smyth Work Phone: [facility] Start: 11-28-2022 End: 11-28-[address] Joseph Smyth Work Phone: [facility] Start: 11-26-2022 End: 11-26-[address] Joseph Smyth Work Phone: [facility] Start: 11-26-2022 End: 11-26-[address] Joseph Smyth Work Phone: [facility] Work Phone: Start: 11-26-2022 End: 11-26-[address] Joseph Smyth Work Phone: [facility] Start: 11-06-2022 End: 11-06-[address] Joseph Smyth Work Phone: [facility] Start: 10-03-2022 End: 10-03-[address] Joseph Smyth Work Phone: [facility] Work Phone: Start: 10-03-2022 End: 10-03-[address] Joseph Smyth [facility] [place] Start: 10-01-2022 End: 10-01-[address] Joseph Smyth Work Phone: [facility] Work Phone: Start: 10-01-2022 End: 10-01-[address] Joseph Smyth Work Phone: [facility] Start: 09-25-2022 End: 09-25-[address] Joseph Smyth Work Phone: [facility]-Outpatient Breast Imaging Start: 08-29-2022 End: 08-29-[address] Joseph Smyth Work Phone: [facility]-Laboratory, [facility] Start: 08-28-2022 End: 08-28-2022 Encounter for general adult medical examination without abnormal findings Dr. Joseph Smyth Work Phone: [facility] Start: 08-28-2022 End: 08-28-[address] Joseph Smyth Work Phone: [facility] Start: 08-05-2022 End: 08-05-[address] Joseph Smyth Work Phone: [facility]-Physical Therapy Start: 08-05-[address] Sam Smyth Work Phone: [facility]-Physical Therapy Start: 05-19-2022 End: 05-19-2022 Admission to same day surgery center Dr. Joseph Smyth Work Phone: [facility] Day Care Start: 05-19-2022 End: 05-19-[address] Joseph Smyth Work Phone: [facility] Work Phone: Start: 05-16-2022 End: 05-16-[address] Joseph Smyth Work Phone: [facility] Start: 04-15-2022 End: 04-15-[address] Joseph Smyth Work Phone: [facility]-Pulmonary Medicine [facility] Start: 04-07-2022 End: 04-07-[address] Joseph Smyth Work Phone: [facility] Work Phone: Start: 04-07-2022 End: 04-07-[address] Joseph Smyth Work Phone: [facility] Start: 04-03-2022 End: 04-03-2022 Emergency department patient visit Dr. Joseph Smyth Work Phone: [facility]-Emergency Department Start: 03-17-2022 End: 03-17-2022 Admission to same day surgery center [facility] Joseph [facility]myth [facility] Start: 03-17-2022 End: 03-17-[address] Joseph Smyth Work Phone: [facility] Work Phone: Start: 03-03-2022 End: 03-03-[address] [facility]myth [facility] Start: 02-25-2022 End: 02-25-[address] Joseph Smyth Work Phone: [facility] Start: 02-05-2022 End: 02-05-[address] Joseph Smyth Work Phone: [facility] Start: 01-21-2022 End: 01-21-[address] Joseph Smyth Work Phone: [facility] Start: 01-14-2022 End: 01-14-[address] Joseph Smyth Work Phone: [facility]-Laboratory, [place] Start: 12-30-2021 End: 12-30-2021 Admission to same day surgery center [facility] Joseph [facility]myth [facility] Start: 12-03-2021 End: 12-03-[address] Joseph Dc Phone: [facility] Start: 11-05-2021 End: 11-05-[address] Joseph Dc Phone: [facility], [place] Start: 10-28-2021 End: 10-28-2021 Admission to same day surgery center [facility]. Joseph Smyth [facility] Start: 10-22-2021 End: 10-22-[address] Joseph Dc Phone: [facility] Start: 10-08-2021 End: 10-08-[address] Joseph Dc Phone: [facility], [place] Start: 10-08-2021 End: 10-08-[address] Joseph Smyth Work Phone: [facility] Start: 10-08-2021 End: 10-08-[address] [facility]c [facility] Start: 09-24-2021 End: 09-24-[address] Joseph Dc Phone: [facility]-Outpatient Breast Imaging Start: 09-21-2021 End: 09-21-2021 Emergency department patient visit Dr. Joseph Dc Phone: [facility]-Emergency Department Start: 09-11-2021 End: 09-11-[address] [facility]c [facility] Start: 09-04-[address] Joseph Smyth Work Phone: [facility] Start: 09-04-2021 End: 09-04-2021 Encounter for general adult medical examination without abnormal findings Dr. Joseph Smyth Work Phone: [facility] Start: 09-04-2021 End: 09-04-[address] Joseph Smyth Work Phone: [facility]-Laboratory, [facility] Start: 06-12-2021 End: 06-12-[address] Joseph Smyth Work Phone: [facility]-Pulmonary Medicine [facility] Start: 11-16-[address] Joseph Smyth Work Phone: [facility] Procedures Date Procedure Procedure Detail Performing Clinician Start: 12-28-2024 X-ray of chest, PA and lateral views Dr. Joseph Smyth MD Work Phone: Start: 12-28-[address] Sam Smyth MD Work Phone: Start: 10-26-[address] Joseph Smyth MD [...] DTaP/Tdap/Td Vaccines (7 - Td or Tdap) [facility] Start: 09-22-2031 DTaP/Tdap/Td Vaccines (8 - Td or Tdap) DTaP/Tdap/Td Vaccines (8 - Td or Tdap) [facility] Start: 02-07-2029 Screening for malignant neoplasm of colon [facility] Start: 01-06-2029 Lipid panel Lipid Panel [facility] Start: 03-11-2027 Lipid panel Lipid Panel [facility] Start: 02-27-2025 Evaluation of diagnostic study results [facility] Start: 01-06-2025 Hemoglobin A1c measurement Diabetes: Hemoglobin A1C [facility] Start: 01-06-2025 Thyroid stimulating hormone measurement TSH Level [facility] Start: 12-28-2024 [facility] Start: 12-28-2024 [facility] Start: 10-26-2024 Egd transoral biopsy single/multiple EGD BIOPSY SINGLE/MULTIPLE [facility] Start: 10-26-2024 Patient discharge [facility] Start: 06-03-2024 End: 06-03-2024 ambulatory 06/03/2024 10:00 AM EST Lab [facility] [id number] [place] [address] [facility] Start: 02-14-2024 COVID-19 Vaccine ( season) COVID-19 Vaccine () [facility] Start: 02-14-2024 COVID-19 Vaccine ( season) COVID-19 Vaccine () [facility] Start: 02-14-2024 Influenza vaccination Influenza Vaccine (#1) [facility] Start: 06-29-2023 Anes dx/ther nerve block/injection prone pos ANESTH N BLOCK/INJ PRONE [facility] Start: 06-29-2023 Fluoroscopic guidance O.R. Fluoro for C-Arm [facility] Start: 06-29-2023 Radiography of thoracic spine Thoracic Spine 2 Views [facility] Start: 06-29-2023 Patient discharge [facility] Start: 05-04-2023 Anesthesia thoracic spine & cord nos ANESTH SPINE CORD SURGERY [facility] Start: 05-04-2023 Dstr nrolytc agnt parverteb fct addl crvcl/thora DESTROY C/TH FACET JNT ADDL [facility] Start: 05-04-2023 Dstr nroly agnt parverteb fct sngl crvcl/thora DESTROY CERV/THOR FACET JNT [facility] Start: 05-04-2023 Radiography of thoracic spine Thoracic Spine 3 Views [facility] Start: 05-04-2023 XR Thoracic spine 3 Views [facility] Start: 05-04-2023 Patient discharge [facility] Start: 03-19-2023 Egd transoral biopsy single/multiple EGD BIOPSY SINGLE/MULTIPLE [facility] Start: 03-19-2023 Patient discharge [facility] Start: 03-11-2023 Thyroid stimulating hormone measurement TSH Level [facility] Start: 02-13-2023 COVID-19 Vaccine ( season) COVID-19 Vaccine () [facility] Start: 01-01-2023 Zoster Vaccines (2 of 2) Zoster Vaccines (2 of 2) [facility] Start: 12-04-2022 Protein measurement [facility] Start: 11-28-2022 Gastrin [Mass/volume] in Serum or Plasma [facility] Start: 11-28-2022 IgE [Units/volume] in Serum or Plasma [facility] Start: 11-28-2022 Procedure [facility] Start: 11-28-2022 Serum immunofixation [facility] Start: 11-28-2022 [facility] Start: 11-26-2022 Patient referral [facility] Work Phone: Start: 08-28-2022 Patient referral [facility] Work Phone: Start: 05-19-2022 Fluoroscopic guidance O.R. Fluoro for C-Arm [facility] Work Phone: Start: 05-19-2022 Radiography of thoracic spine Thoracic Spine 2 Views [facility] Work Phone: Start: 05-19-2022 Patient discharge [facility] Work Phone: Start: 04-03-2022 [facility] Work Phone: Start: 03-17-2022 Anes dx/ther nerve block/injection prone pos ANESTH N BLOCK/INJ PRONE [facility] Work Phone: Start: 03-17-2022 Dstr nrolytc agnt parverteb fct addl crvcl/thora DESTROY C/TH FACET JNT ADDL [facility] Work Phone: Start: 03-17-2022 Dstr nrolytc agnt parverteb fct sngl crvcl/thora DESTROY CERV/THOR FACET JNT [facility] Work Phone: Start: 03-17-2022 Fluoroscopic guidance O.R. Fluoro for C-Arm [facility] Work Phone: Start: 03-17-2022 Radiography of thoracic spine Thoracic Spine 2 Views [facility] Work Phone: Start: 03-17-2022 Patient discharge [facility] Work Phone: Start: 12-30-2021 Njx dx/ther agt pvrt facet jt crv/thrc 2nd level INJ PARAVERT F JNT C/T 2 [facility] Work Phone: Start: 12-30-2021 Injection using fluoroscopic guidance [facility] Work Phone: Start: 12-30-2021 Patient discharge [facility] Work Phone: Start: 10-28-2021 Anes dx/ther nerve block/injection prone pos ANESTH N BLOCK/INJ PRONE [facility] Work Phone: Start: 10-28-2021 Njx dx/ther agt pvrt facet jt crv/thrc 2nd level INJ PARAVERT F JNT C/T 2 [facility] Work Phone: Start: 10-28-2021 Njx dx/ther agt pvrt facet jt crv/thrc 3+ level INJ PARAVERT F JNT C/T 3 [facility] Work Phone: Start: 10-28-2021 Fluoroscopy guided injection of cervical spinal nerve root OR-Steroid Inj/Cer Thor/1st L [facility] Work Phone: Start: 10-28-2021 Injection of facet joint [facility] Work Phone: Start: 10-28-2021 Radiography of thoracic spine Thoracic Spine Min 4 Views [facility] Work Phone: Start: 10-28-2021 Patient discharge [facility] Work Phone: Start: 2020 Pneumococcal Vaccine: 65+ Years (1 - PCV) Pneumococcal Vaccine: 65+ Years (1 - PCV) [facility] Start: 2015 RSV High Risk: (Elderly (60+) or Population) (1 - Risk 60-74 years 1-dose series) RSV High Risk: (Elderly (60+) or Population) (1 - Risk 60-74 years 1-dose series) [facility] Start: 1995 Screening for malignant neoplasm of breast Mammogram [facility] Start: 1973 Hepatitis C screening Hepatitis C Screening [facility] Start: 05-02-1961 IPV Vaccines (3 of 3 - 4-dose series) IPV Vaccines (3 of 3 - 4-dose series) [facility] Start: 1961 Pneumococcal Vaccine: 65+ Years (1 of 2 - PCV) Pneumococcal Vaccine: 65+ Years (1 of 2 - PCV) [facility] Start: 1955 Annual wellness visit Welcome to Medicare Visit [facility] Start: 1955 Medicare Annual Wellness Visit Medicare Annual Wellness Visit (AWV) [facility] Start: 1955 Screening for malignant neoplasm of colon [facility] Start: 1955 Screening for osteoporosis Bone Density Scan [facility] Albumin [Moles/volum e] in Serum or Plasma [facility] Albumin/Globulin ratio [facility] Antibody to lupus [place] protein measurement [facility] Antibody to SS-A measurement [facility] Bacteria identified in Urine by Culture Urine Culture [facility] Work Phone: Blood chemistry [facility] Work Phone: Blood chemistry [facility] Cancer Ag 19-9 [Units/volume] in Serum or Plasma [facility] CBC W Auto Different ial panel - Blood [facility] Centromere protein B Ab [Units/volume] in Serum [facility] Chromatin Ab [Units/volume] in Serum or Plasma [facility] Clam IgE Ab [Units/v olume] in Serum [facility] Codfish IgE Ab [Units/volume] in Serum [facility] Comprehensive metabo lic 2000 panel - Serum or Plasma [facility] [place] IgE Ab [Units/v olume] in Serum [facility] Cow milk IgE Ab [Units/volume] in Serum [facility] DNA double strand Ab [Units/volume] in Serum [facility] Egg white IgE Ab [Units/volume] in Serum [facility] Electrophoresis: [id number] [facility] Electrophoresis: jose ma globulin [facility] Globulin measurement [facility] Hemoglobin A1c/Hemoglobin.total in Blood [facility] IgA [Mass/volume] in Serum or Plasma [facility] IgG [Mass/volume] in Serum or Plasma [facility] IgM [Mass/volume] in Serum or Plasma [facility] Sandy-1 extractable nuc lear Ab [Units/volume] in Serum [facility] Lactoferrin [Presenc e] in Stool by Immunoassay [facility] Lipid 1995 panel - S scooter or Plasma [facility] MG Breast - bilatera l Screening [facility] MR Biliary ducts and Pancreatic duct contrast [facility] MR Biliary ducts and Pancreatic duct WO [facility] Neutrophil cytoplasm ic Ab.classic [Units/volume] in Serum [facility] P-ANCA measurement [facility] Patient Education [facility] Work Phone: Patient referral [facility] Work Phone: Peanut IgE Ab [Units/volume] in Serum [facility] Protein electrophore sis panel - Serum or Plasma [facility] Protein measurement [facility] Protein measurement [facility] Scallop RAST [facility] SCL-70 extractable n uclear Ab [Units/volume] in Serum by Immunoassay [facility] Serum protein electrophoresis [facility] Sesame seed RAST [facility] Shrimp IgE Ab [Units/volume] in Serum [facility] Horne extractable nu clear Ab [Presence] in Serum [facility] Soybean IgE Ab [Units/volume] in Serum [facility] Thyroid stimulating hormone measurement [facility] Thyroid stimulating hormone measurement [facility] Thyroid stimulating hormone measurement [facility] [place] RAST [facility] Wheat IgE Ab [Units/volume] in Serum [facility] Immunizations Immunization Date Immunization Notes Care Provider Kathleen valerio 05-02-2024 Seasonal trivalent influenza vaccine, adjuvanted, preservative free Dr. Joseph Smyth MD Work Phone: [facility] 04-24-2023 influenza, injectabl e, quadrivalent, preservative free Dr. Joseph Smyth Work Phone: [facility] 04-24-2023 influenza virus vaccine, unspecified formulation [facility] Work Phone: 11-06-[address] Joseph Smyth Work Phone: [facility] 04-15-2022 influenza, injectabl e, quadrivalent, preservative free Dr. Joseph Smyth Work Phone: [facility] 04-15-2022 influenza, seasonal, injectable Dr. Joseph Smyth Work Phone: [facility] 09-21-2021 tetanus toxoid, reduced diphtheria toxoid, and acellular pertussis vaccine, adsorbed Dr. Joseph Smyth Work Phone: [facility] 03-24-2021 Covid (Pfizer) Dr. Joseph Smyth Work Phone: [facility] 02-23-2021 influenza, injectabl e, quadrivalent, preservative free Dr. Joseph Smyth Work Phone: [facility] 02-23-2021 influenza, seasonal, injectable Dr. Joseph Smyth Work Phone: [facility] 07-17-2020 Covid (Pfizer) Dr. Joseph Smyth Work Phone: [facility] 06-26-2020 Covid (Pfizer) Dr. Joseph Smyth Work Phone: [facility] 03-30-[address] Joseph Smyth Work Phone: [facility] 10-30-1960 poliovirus vaccine, unspecified formulation [facility] Work Phone: Payers Date Payer Category Payer Self-pay [id number] 2023 Medicare [employer] [id number] 2023-Present [address] [place] [address] [id number] 2023 Medicare (Managed Care) [employer] [id number] 2023 Medicare [id number] 2016 Unknown [id number] 1955 Unknown [id number] 1955 Unknown [id number] 1955 Unknown [id number] 1955 Unknown [id number] Unknown [id number] Unknown [id number] Unknown [id number] Unknown [id number] Unknown [id number] 2.16.840.1.341748.3.579.2. 462 Unknown [id number] 2.16.840.1.502146.3.579.2. 462 Unknown [id number] 2.16.840.1.785654.3.579.2. 462 Unknown [id number] 2.16.840.1.321230.3.579.2. 462 Unknown [id number] 2.16.840.1.324698.3.579.2. 462 Unknown [id number] 2.16.840.1.069054.3.579.2. 462 Unknown [id number] 2.16.840.1.275829.3.579.2. 462 Unknown [id number] 2.16.840.1.085693.3.579.2. 462 Unknown [id number] 2.16.840.1.186510.3.579.2. 462 Unknown [id number] 2.16.840.1.729391.3.579.2. 462 Unknown [id number] 2.16.840.1.182269.3.579.2. 462 Unknown [id number] 2.16.840.1.054230.3.579.2. 462 Unknown [id number] 2.16.840.1.661976.3.579.2. 462 Unknown [id number] 2.16.840.1.805396.3.579.2. 462 Unknown [id number] 2.16.840.1.978802.3.579.2. 462 Unknown [id number] 2.16.840.1.596977.3.579.2. 462 Unknown [id number] 2.16.840.1.759006.3.579.2. 462 Unknown [id number] 2.16.840.1.147335.3.579.2. 462 Social History Date Type Detail Facility Start: 09-21-2021 End: 07-29-2023 Tobacco smoking status NHIS Unknown if ever smoked [facility] Start: 02-11-2014 None [facility] Start: 02-11-2014 With Family [facility] Start: 05-30-2020 Non-smoker [facility] Start: 1955 Sex Assigned At Female [facility] Start: 08-21-2023 End: 12-28-2024 Tobacco smoking status NHIS Ex-smoker [facility] History of tobacco use Current smoker [facility] Work Phone: History of tobacco use Cigarette Smoker [facility] Work Phone: Start: 08-21-2023 Cigarettes smoked current (pack per day) - Reported 1 [facility] Work Phone: Start: 08-21-2023 Tobacco use and exposure Smokeless tobacco non-user [facility] Work Phone: Start: 08-21-2023 Alcohol intake Current drinke r of alcohol (finding) [facility] Work Phone: Start: 08-21-2023 Alcohol Comment occasionally [facility] Work Phone: Start: 1955 Sex Assigned At Not on file [facility] Work Phone: Start: 08-21-2023 Gender identity Not on file [facility] Start: 08-11-2023 End: 08-21-2023 Exposure to SARS-CoV-2 (event) Not sure [facility] Work Phone: Start: 05-20-2024 End: 05-30-2024 Exposure to SARS-CoV-2 (event) Unable to assess [facility] NEGATED: Highlighted row [facility] NEGATED: Highlighted rowStart: CAROLYNF History of tobacco use Passive smoker [facility] Work Phone: NEGATED: Highlighted row Not [facility] Goals Date Patient Goal Desired Activity /State Mental Status Date Assessment Result Facility 10-26-2024 Cognitive function Level Of Cons ciousness Follows Commands;Drowsy [facility] Work Phone: 10-26-2024 Cognitive function Voice/Name [facility] Work Phone: 06-29-2023 Cognitive function Level Of Cons ciousness Awake;Alert;Appropriate;Follow s Commands [facility] Work Phone: 05-04-2023 Cognitive function Voice/Name [facility] Work Phone: 03-19-2023 Cognitive function Voice/Name [facility] Work Phone: 02-20-2023 Cognitive function Level Of Cons ciousness Awake;Alert;Appropriate [facility] Work Phone: 05-19-2022 Cognitive function Voice/Name [facility] Work Phone: 03-17-2022 Cognitive function Level Of Cons ciousness Awake;Appropriate [facility] Work Phone: 03-17-2022 Cognitive function Patient Orien tation Person;Place;Time [facility] Work Phone: 12-30-2021 Cognitive function Awake;Appropriate [facility] Work Phone: 10-28-2021 Cognitive function Level Of Cons ciousness Awake;Appropriate [facility] Work Phone: 10-28-2021 Cognitive function Patient Orien tation Person;Place;Time [facility] Work Phone: Clinical Notes 03-07-2022 to 12-28-2024 Note Date & Type Note Facility 07-16-2025 Discharge summary [facility] 12-28-2024 Radiology Diagnostic study note [facility] Imaging Services [address] [place] [address] Chest PA and Lateral MR#: [id number] Acct: [id number] Name: CULLEN CUEVA Rep #: [id number] : 1955 F 69 From: Amauri Conner MD PCP: Dr. Joseph Smyth MD Status: P RE ER Study:Chest PA and Lateral Date of Exam: 12/28/24 Exam# [id number] Ordering Dr: Adin Estrella MD PROCEDURE: CHEST PA AND LATERAL 12/28/2024 REASON FOR EXAM: COUGH X 1 MONTH TECHNIQUE: CHEST PA AND LATERAL COMPARISON: Prior study dated December 05, 2020. FINDINGS: Hardware: EKG electrodes are seen. Heart: The heart size is normal. Mediastinum: The mediastinal contour is unremarkable. Lungs: The lungs are clear. Bones: Degenerative changes are identified within the thoracic spine. Dextroconvex scoliosis. RAD/Chest PA and Lateral IMPRESSION: NO ACUTE FINDINGS. Reading Location: [place] [address] CC: Dr. Joseph Smyth MD; Dr. Luis Alberto Estrella MD ~ Superintendent Logging: Signed [facility] 12-28-2024 Hospital Discharge instructions Additional Instructions Use spacer with your inhaler. Recommend 2 puffs every 2-4 hours while awake for the next 3 to 5 days then every 4-6 hours as needed. [facility] Work Phone: 12-06-2024 Progress note [facility] 12-06-2024 Progress note Note Date/Time December 06, 2024 10:20am [facility] [address] [place] [address] OFFICE VISIT Date of Service: 12/06/24 MR#: [id number] Acct: [id number] Name: CULLEN CUEVA Rep #: [id number] : 1955 Provider: HILARY Saleh Age/Sex: 69/F Location: [facility].PMW Status: Signed Assessment and Plan Assessment and Plan (1) Asthma exacerbation: Status: Acute Qualifiers: Asthma severity: mild Asthma persistence: intermittent Qualified Code(s): J45.21 - Mild intermittent asthma with (acute) exacerbation Comment: CONTROLLED WITH MEDS AND INHALERS Plan: Deteriorated. NIOX procedure performed in the office today returned significantly elevated, indicating that the patient is in an acute exacerbation of asthma requiring a prednisone burst. Continue Symbicort twice daily at this time. If symptoms do not show improvement after 48 hours on prednisone contact the office. Escalating medication, ordering a nebulizer and albuterol solution through a [employer] for the patient to utilize. Keep previously scheduled routine follow-up. Contact the office if symptoms do not improve or if they getworse. (2) Chronic cough: Status: Chronic Plan: Deteriorated, likely secondary to this exacerbation. I do not believe that she requires antibiotics at this time. However, if the patient starts to expectorate purulent sputum after she begins the prednisone, she is to call the office with an update. At that time I will likely add an antibiotic. Orders: Orders NIOX Today R05 - Cough Medications: New prednisone administer with food or milk 60 mg (3 x 20 mg) PO QDAY 5 days 15 tabs 0RF Plan Details Additional Comments: This note was generated with [email or web address] dictation software. It may contain incorrectwords, spelling, and punctuation that were not noted in checking the note beforesigning. HPI Acute sick Chief Complaint: wheeze HPI Comments Details: This patient presents to the office today for an acute visit. She contacted our office earlier this morning reporting that she was having a "asthma flare" that started on November 27, 2024. She states that she noticed increase in shortness of breath, wheezing and cough. She began to utilize Symbicort twice daily on November 28, 2024. Initially, albuterol seem to be helping. However, recently she has been using it 4 times daily and is not feeling relief. She has noticed an increase in shortness of breath, a cough that is sometimes productive and sometimes she feels as though she is "unable to cough it out" and wheezing. She has been using huxk-bvd-epzkhoe Janay-D. For the last week she has been compliant with Symbicort 2 puffs twice daily. She does report rinsing her mouth out after each use. She denies any medicationside effect such sore throat or thrush. She has been using albuterol rescue inhaler 4 times daily. She does not currently have a nebulizer machine. She has experience with a nebulizer when seen in the emergency department, and has previously had good results from it. She has a persistent dry cough. She denies any chest tightness or chest pain. She has noticed wheezing. Intake Vital Signs 11/28/24 08:21 12/06/24 09:06 Height 5 ft 7 in 5 ft 7 in Weight: 300 lb 297 lb BMI 47.0 46.5 BP 124/84 H 159/73 H Blood Pressure Location Lt brachial Lt radial Position Sitting Sitting Respiration 18 18 Pulse 68 97 Pulse Source Monitor Monitor Temp 98.2 F 97.3 F L Temperature Source Temporal Artery Pulse Oximetry (%) 98 95 Oxygen Delivery Method room air room air Intake Visit Reasons: Acute sick Chief Complaint: Follow-up chronic conditions Environmental Science Program Director Required: No DME Vendor: [employer] - unsure Accompanied by: Self Allergies pravastatin (From Pravachol) Allergy (Mild, Verified 12/06/24 09:49) itching ketoprofen (From Orudis) Allergy (Verified 12/06/24 09:49) Nausea/Vom/Diarrhea hydrochlorothiazide (From Dyazide) Adverse Reaction (Intermediate, Verified 12/06/24 09:49) Other triamterene (From Dyazide) Adverse Reaction (Intermediate, Verified 12/06/24 09:49) Other Medications ?Medication ?Instructions ?Recorded ?Confirmed ?Type calcium carbonate 1,000 mg PO DAILY 06/22/20 0 12/06/24 History cholecalciferol (vitamin D3) 25 2,000 unit PO DAILY 12/06/24 History mcg (1,000 unit) chewable tablet mecobalamin (vitamin B12) 5,000 5,000 mcg PO DAILY SUP PLEMENT 12/05/20 12/06/24 History mcg disintegrating tablet triamcinolone acetonide 0.1 % 1 applic topical BID PRN rash 08/29/22 12/06/24 Rx topical cream #453.6 grams montelukast 10 mg tablet 10 mg PO QHS PRN ALLERGIES 0 10/30/23 12/06/24 History (Singulair) compress.stocking,knee,reg,lrg #2 ea 11/02/23 11/28/24 Rx albuterol sulfate 90 mcg/actuation 2 - 3 puff inhalati on Q6H PRN 05/10/24 12/06/24 Rx aerosol inhaler shortness of breath or wheez ing #8.5 grams rosuvastatin 40 mg tablet (Crestor) 40 mg PO DAILY #90 tabs 07/28/24 12/06/24 Rx levothyroxine 175 mcg tablet 175 mcg PO DAILY #90 tabs 08/22/24 12/06/24 Rx omeprazole 40 mg capsule,delayed 40 mg PO DAILY #90 ca ps 08/22/24 12/06/24 Rx release ferrous sulfate 325 mg (65 mg 325 mg PO DAILY 10/24/24 12/06/24 History iron) tablet (FeroSul) trazodone 50 mg tablet See Rx Instructions PO QHS P RN 10/24/24 12/06/24 History Sleep fluoxetine 20 mg capsule 20 mg PO QDAY #90 caps 10/3112/06/24 Rx fluoxetine 40 mg capsule 40 mg PO DAILY #90 caps 10/1312/06/24 Rx zolpidem 5 mg tablet 5 mg PO QHS PRN insomnia #30 tabs 11/28/24 12/06/24 Rx budesonide-formoterol HFA 160 2 puff inhalation BID LA N ASTHMA 12/01/24 12/06/24 Rx mcg-4.5 mcg/actuation aerosol #1 ea inhaler (Symbicort) pramipexole 0.25 mg tablet 0.25 - 0.75 mg (1 - 3 x 0.2 5 mg) 12/02/24 12/06/24 Rx PO QHS RLS #90 tabs fluorometholone 0.1 % eye 1 drp ophthalmic (eye) BID 0 12/06/24 12/06/24 History drops,suspension prednisone 20 mg tablet 60 mg (3 x 20 mg) PO QDAY 5 days 12/06/24 12/06/24 Rx #15 tabs Have you fallen in the past year?: Yes PFSH Medical History Fatigue Shortness of breath on exertion Anxiety and [...] of colonoscopy History of esophagogastroduodenoscopy (EGD) (~2015) Family History Sister CAD (coronary artery disease) [...] you participate in: none Review of Systems Resp Respiratory: Yes as per HPI Exam Const Constitutional: Positive cooperative, well developed, well nourished, good hygiene, obese and ill appearing Head Head: Yes normocephalic, Yes atraumatic and No cyanosis of lips/distal nose Eyes Eye: Positive clear conjunctiva; Negative nystagmus Ears Ear: Positive hearing normal and external ears normal Nose Nose: Yes external nose normal Mouth Mouth: Positive oral mucosae normal Neck Neck: Positive normal visual inspection, full ROM and trachea midline Chest Wall Chest: Positive normal inspection of the chest and symmetric chest movement Resp lung sounds: Positive diminished lung sounds, normal expiratory time, increased work of breathing and other (Dry cough); Negative rhonchi or rales Cardio Cardiac: Positive regular rate, regular rhythm, S1 normal and S2 normal; Negative murmur or rub GI GI: Positive normal to inspection and obese Genitourinary: Positive deferred Musc Musculoskeletal: Positive steady gait; Negative kyphosis or scoliosis Skin Pulmonary Skin Exam: Positive intact; Negative lesion, rash, ulcers or erythema Pulses Pulse: Yes radial pulses present Extremities Extremities: Yes capillary refill normal, No clubbing, No cyanosis and No edema Neuro Neurologic: Yes no focal neuro deficits, Yes cooperative, Yes normal cognition, Yes normal coordination, Yes normal concentration and Yes understands questions Psych Appearance: Positive grossly normal, eye contact and well kempt Mental Status: Positive mental status grossly normal Mood: Positive congruent mood Affect: Positive normal affect Office Procedures Niox Air Inflam Monitor NIOX Result NIOX: 111 Coding Level of Care Code Off vis,est,level 4 Diagnoses Mild intermittent asthma with exacerbation J45.21 Asthma severity: mild Asthma persistence: intermittent Chronic cough R05 Clinical Quality Measures Falls Risk Screening/Assistive Devices Have you fallen in the past year?: Yes 12/06/24 1020 <Electronically signed by Angi beard NP WATER CHASER-C> Date _ Angi Saleh NP, NP-C Cosigner Signature: Date (if applicable) CC: Dr. Joseph Smyth MD ~ [employer] [facility] Work Phone: 1(348) 896-548206-16-2025 Evaluation note* Diagnosis Onset Date Resolution Status Admit Date Anxiety and depression chronic Ju 2024 8:08am Essential hypertension chronic Ju 2024 8:08am Fatigue chronic November 28 8:08am Hypothyroidism chronic November 28, 2024 8:08am JADEN (obstructive sleep apnea) chroni c November 28, 2024 8:08am Asthma exacerbation acute December 06, 2024 9:45am Chronic cough chronic December 06, 2024 9:45am Abnormal EKG acute February 272024 7:21am Health care maintenance acute S eptember 2024 7:21am Anxiety and depression chronic Se ptember 2024 7:21am Asthma chronic February 7:21am Borderline type 2 diabetes mellitus chronic February 27, 2025 7:21am Essential hypertension chronic Se ptember 2024 7:21am Fatigue chronic February 7:21am Hypothyroidism chronic February 27, 2025 7:21am Insomnia chronic February 7:21am [facility] Work Phone: 1(159) 933-458505-14-2025 Consult note [facility] Medical Records Department [address] [place] [address] Anesthesia Postop Eval I 10/26/241513 MR#: [id number] Acct: [id number] Name: CULLEN CUEVA Rep #:[id number] : 1955 69 From: Twan TORIBIO PCP: Dr. Joseph Smyth MD Status:R [place] [facility] [place] Race: C Location: [place] [address] Anesthesia: Postop Eval I Current Vital Signs Temperature: 97.7 F Pulse Rate: 83 Blood Pressure: 123/68 Respiratory Rate: 16 Pulse Ox: 94 Assessment Airway patent: Yes Spontaneous unlabored respirations: Yes nausea: No Vomiting: No Anesthesia Complication: No Fluid Hydration Crystalloid volume administer (ml): 200 Total IV fluid infused: 200 Progress Note Anesthesia document: Postop Eval 1 completed: Yes 10/26/241513 FIRE ENGINEER> Date _ Twan Serrato FIRE ENGINEER Cosigner Signature: Date CC: ~ Signed [facility]05-14-2025 Procedure note [facility] Medical Records Department [address] [place] [address] Operative Report - CC Letter MR#: [id number] Acct: [id number] Name: CULLEN CUEVA Rep #:[id number] : 1955 69 From: Brant Langley DO PCP: Dr. Joseph Smyth MD Status:R [facility] 10/26/2024 Joseph Smyth MD [address] [place] [address] Re : Upper GI endoscopy procedure for Cullen Cueva Dear Dr. Smyth This procedure was performed on Saturday, October 26, 2024. 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 Biopsied. - Multiple gastric polyps. - No gross lesions in the duodenal bulb. Recommendations : - Discharge patient to home. - Resume previous diet. - Continue present medications. - Await pathology results. My findings are described in the full procedure note, which is enclosed. If I can be of further assistance, please feel free to contact me at . Sincerely, Brant Langley DO 10/26/2024 3:10:29 PM This report has been signed electronically. 10/26/24 1510 Date _ Brant Valles Signature: Date (if indicated) CC: Dr. Joseph Smyth MD; Brant Langley DO ~ Date Dictated: 10/26/24 1448 Date Transcribed: Superintendent Logging: RF Signed [facility]05-14-2025 Procedure note [facility] Medical Records Department [address] [place] [address] EGD Report MR#: [id number] Acct: [id number] Name: CULLEN CUEVA Rep #:[id number] : 1955 69 From: Brant Langley DO PCP: Dr. Joseph Smyth MD Status:R EG SDC Patient Name: Cullen Cueva Procedure Date: 10/26/2024 [...] the Z-line (43 cm from the incisors). [place]-colored mucosa was present. The maximum longitudinal extent [...] pathology results. Procedure Code(s): --- Professional --- 58477, Esophagogastroduodenoscopy, flexible, transoral; with biopsy, single or multiple CPT copyright 2021 [employer]. All rights reserved. The codes documented in this report are preliminary and upon soil scientist review may be revised to meet current compliance requirements. Brant Langley DO 10/26/2024 3:10:29 PM This report has been signed electronically. Number of Addenda: 0 Note Initiated On: 10/26/2024 2:48 PM 10/26/24 1510 Date _ Brant Valles Signature: Date (if indicated) CC: Dr. Joseph Smyth MD; Brant Lagnley, ~ Date Dictated: 10/26/24 1448 Date Transcribed: Superintendent Logging: RAY Signed [facility]05-14-2025 Consult note [facility] Medical Records Department [address] [place] [address] Pre-Anesthesia Evaluation 10/26/24 1427 MR#: [id number] Acct: [id number] Name: CULLEN CUEVA Rep #:[id number] : 1955 69 From: Susan Baez PCP: Dr. Joseph Smyth MD Status:R EG [facility] [place] Race: C Location: [place] [address] ASA Classification* ASA Classification ASA Classification: 3 [...] lab: CBC WBC 9.4 K/mm3 (4.4-11.0) 05/02/24 10:24 05/02/24 RBC 4.77 M/mm3 (4.2-5.4) 05/02/24 10:05/02/24 Hgb 14.3 g/dL (12.0-15.0) 05/02/24 10:24 05/02/24 Hct 43.0 % (37-47) 05/02/24 10:05/02/24 Plt [...] Procedure(s): EGD Anesthesia History Anesthesia History - education program associate: Anesthesia History - education program associate Hx Hospitalization No 10/24/24 13:50 Any Problems [...] take am of surgery PONV PONV - education program associate: PONV - education program associate Female Yes 10/24/24 13:50 HX of Motion [...] 10/26/24 13:44 Respiratory Assessment Respiratory Assessment - education program associate: Respiratory Tract Infection Hx - education program associate Hx Respiratory Tract Infection No 10/24/24 13:50 STOP Sleep Apnea STOP Sleep Apnea - education program associate: STOP Sleep Apnea - education program associate Hx Hypertension No 10/24/24 13:50 Hx Sleep [...] than talking or can be heard through closeddoors)? Tobacco Use History Tobacco Use History - education program associate: Tobacco Use History - education program associate Tobacco Use Smoking Status Former smoker 10/24/24 13:50 Hx Tobacco Use No 10/24/24 13:50 Years Smoking Packs Smoked per Day Smoking Cessation Date was No - quit smoking greater 10/24/24 13:50 within the last 15 years than 15 years ago Hx Smoking Cessation Date 06/15/84 10/24/24 13:50 Hx Smoking Cessation Counseling Hematologic Medial History Hematologic Hx - education program associate: Hematologic Medical Hx - form block maker Hx of Blood Transfusion No 10/24/24 13:50 Hx of Transfusion in last 3 No 10/24/24 13:50 Months Date of Last Transfusion (if within last 3 months) Ever experience any problems No 10/24/24 13:50 with transfusion(s)? Specify any problems Hx of Preganancy in last 3 No 10/24/24 13:50 Months Nurse Filling Out Transfusion MGRIYUKI 10/24/24 13:50 & Questions: Date: 10/24/24 10/24/24 13:50 Time: 13:52 10/24/24 13:50 Patient unable to answer at this time (ie. confused, unrespo /Reproduction History /Reproductive History - education program associate: /Reproductive Hx- education program associate Hx Now No 10/24/24 13:50 Gestational Age [...] budesonide-formoterol HFA 160 2 puff inhalation BID LA N ASTHMA 04/30/23 Unknown History mcg-4.5 mcg/actuation [...] additional complaints, except as documented. 10/26/24 1430 > Date _ Susan Bautista Signature: Date CC: ~ Signed [facility]05-14-2025 History and physical note [facility] Medical Records Department [address] [place] [address] History & Physical Exam 10/26/24 1427 MR#: [id number] Acct: [id number] Name: CULLEN CUEVA Rep #:[id number] : 1955 69 From: Brant Friend DO PCP: Dr. Joseph Smyth MD Status:R EG [facility] Location: [address] HPI - General General Date of Admission: 10/26/24 Date of Service: 10/26/24 Chief Complaint: urbano's esophagus HPI Narrative CULLEN CUEVA, is a 69 F who presentsPATRICPHILIP CUEVA, is a 69 F who presents [...] routine use causes loose stools. ? MRCP .11.04 hyperintense cystic lesion of pancreatic head without ductal dilation, most likely primary cystic neoplasm ie. IPMN. Recommendrepeat MRCP in one year for stability. Contact 06.30.23 with MRCP results; recommend tumor markers for baseline ? Biochemical CA19-9, CEA WNL OV 07.09.23 reports she is having some intermittent nausea and afternoon/evening bloating. OV 5 pt reports increased difficulty swallowing, stating that "things are getting caught and cutting off her trachea". Notes nausea about 3 times a week, cannot pinpoint trigger or alleviating factors. [facility] Medical History Shortness of breath on [...] budesonide-formoterol HFA 160 2 puff inhalation BID LA N ASTHMA 04/30/23 Unknown History mcg-4.5 mcg/actuation [...] ground emesis, constipation, cramping, diarrhea, dyspepsia, dysphagia, earlysatiety, excessive flatus, fecalincontinence, heartburn, hematemesis, hematochezia, hemorrhoids, [...] ischemic colitis, medication side effect. She will go,"thing, stool testing and possibly colonoscopy in the future. Patient is okay with this plan. We started on Amitiza and she is actually doing very well with Amitiza. Itis allowing her to have a daily bowel movement. We will continue that for the near future over the next 6 months. (3) Pancreatic lesion: Status: Chronic Comment: MRCP 05.19.23 (4) Choledocholithiasis: Status: Acute Plan: She has history of choledocholithiasis. Since she is having right upper quadrant pain we will orderan MRCP. MRCP: Specifically, no evidence of choledocholithiasis. 1 cm T2 hyperintense cystic lesion in the head of the pancreas without main pancreatic duct dilatation. This most likely represents a primary cystic neoplasm of the pancreas such as side branch intraductal papillary mucinous neoplasm (IPMN). Recommend: Repeat MRCP in 4 months and repeat CA 19-9 in 4 months 10/26/24 1430 [facility] Signature (if applicable): CC: Dr. Joseph Smyth MD; Brant Langley, DO~ Signed [facility]05-14-2025 [facility] Medical Records Department [address] [place] [address] History Physical Exam 10/26/24 1427 MR#: [id number] Acct: [id number] Name: CULLEN CUEVA Rep #: [id number] : 1955 69 From: Brant Langley DO PCP: Dr. Joseph Smyth MD Status:[facility] Location: [place] [address] HPI - General General Date of Admission: 10/26/24 Date of Service: 10/26/24 Chief Complaint: urbano's esophagus HPI Narrative CULLEN CUEVA, is a 69 F who presentsPATRICPHILIP CUEVA, is a 69 F who presents [...] baseline ? Biochemical CA19-9, CEA WNL OV 1. reports she is having some intermittent nausea and afternoon/evening bloating. OV 5.6.25 pt reports increased difficulty swallowing, stating that "things are getting caught and cutting off her trachea". Notes nausea about 3 times a week, cannot pinpoint trigger or alleviating factors. [facility] Medical History Shortness of breath on [...] topical cream #453.6 grams (more content not included)...[facility]05-06-2025 Evaluation note* Diagnosis Onset Date Resolution Status Admit Date Choledocholithiasis acute October 182024 8:54am Barretts esophagus chronic October 8:54am Constipation chronic October 18 8:54am Pancreatic lesion chronic October 8:54am Dysphagia acute October 26, 2024 1:04pm Barretts esophagus chronic October 262024 1:04pm Globus sensation chronic October 1:04pm Anxiety and depression chronic 2024 8:08am Essential hypertension chronic 2024 8:08am Fatigue chronic November 28 8:08am Hypothyroidism chronic November 28, 2024 8:08am JADEN (obstructive sleep apnea) chroni c November 28, 2024 8:08am Asthma exacerbation acute December 06, 2024 9:45am Chronic cough chronic December 06, 2024 9:45am [facility] Work Phone: 1(685) 401-719004-11-2025 Evaluation note* Diagnosis Onset Date Resolution Status Admit Date Anxiety and depression chronic Ap 2024 8:25am Insomnia chronic September 23 8:25am Choledocholithiasis acute October 182024 8:54am Barretts esophagus chronic October 8:54am Constipation chronic October 18 8:54am Pancreatic lesion chronic October 8:54am Dysphagia acute October 26, 2024 1:04pm Barretts esophagus chronic October 262024 1:04pm Globus sensation chronic October 1:04pm Anxiety and depression chronic 2024 8:08am Essential hypertension chronic [facility] 2024 8:08am Fatigue chronic November 28 8:08am Hypothyroidism chronic November 28, 2024 8:08am JADEN (obstructive sleep apnea) chroni c November 28, 2024 8:08am Asthma exacerbation acute December 06, 2024 9:45am Chronic cough chronic December 06, 2024 9:45am [facility] Work Phone: 1(769) 378-831303-17-2025 Evaluation note* Diagnosis Onset Date Resolution Status Admit Date History of fall acute August 8:49am Anxiety chronic August 29 8:49am Borderline type 2 diabetes mellitus chronic August 29, 2024 8:49am Essential hypertension chronic [facility] 2024 8:49am Globus sensation chronic August 292024 8:49am Hot flashes chronic August 29, 2 025 8:49am Hypothyroidism chronic August 8:49am Insomnia chronic August 29 8:49am Anxiety and depression acute [facility] 2024 8:25am Insomnia chronic September 23 8:25am Choledocholithiasis acute October 182024 8:54am Barretts esophagus chronic October 8:54am Constipation chronic October 18 8:54am Pancreatic lesion chronic October 8:54am Dysphagia acute October 26, 2024 1:04pm Barretts esophagus chronic October 262024 1:04pm Globus sensation chronic October 1:04pm [facility] Work Phone: 1(863) 501-800103-17-2025 Evaluation note* Diagnosis Onset Date Resolution Status Admit Date History of fall acute August 8:49am Anxiety chronic August 29 8:49am Borderline type 2 diabetes mellitus chronic August 29, 2024 8:49am Essential hypertension chronic [facility] 2024 8:49am Globus sensation chronic August 292024 8:49am Hot flashes chronic August 29, 2 025 8:49am Hypothyroidism chronic August 8:49am Insomnia chronic August 29 8:49am Anxiety and depression chronic [facility] 2024 8:25am Insomnia chronic September 23 8:25am Choledocholithiasis acute October 182024 8:54am Barretts esophagus chronic October 8:54am Constipation chronic October 18 8:54am Pancreatic lesion chronic October 8:54am Dysphagia acute October 26, 2024 1:04pm Barretts esophagus chronic October 262024 1:04pm Globus sensation chronic October 1:04pm Anxiety and depression chronic ne 2024 8:08am Essential hypertension chronic [facility] 2024 8:08am Fatigue chronic November 28 8:08am Hypothyroidism chronic November 28, 2024 8:08am JADEN (obstructive sleep apnea) chroni c November 28, 2024 8:08am [facility] Work Phone: 1(262) 817-399903-17-2025 Evaluation note* Diagnosis Onset Date Resolution Status Admit Date History of fall acute August 8:49am Anxiety chronic August 29 8:49am Borderline type 2 diabetes mellitus chronic August 29, 2024 8:49am Essential hypertension chronic [facility] 2024 8:49am Globus sensation chronic August 292024 8:49am Hot flashes chronic August 29, 8:49am Hypothyroidism chronic August 8:49am Insomnia chronic August 29 8:49am Anxiety and depression chronic Ap ril 2024 8:25am Insomnia chronic September 23 8:25am Choledocholithiasis acute October 182024 8:54am Barretts esophagus chronic October 8:54am Constipation chronic October 18 8:54am Pancreatic lesion chronic October 8:54am Dysphagia acute October 26, 2024 1:04pm Barretts esophagus chronic October 262024 1:04pm Globus sensation chronic October 1:04pm Anxiety and depression chronic Ju 2024 8:08am Essential hypertension chronic [facility] ne 2024 8:08am Fatigue chronic November 28 8:08am Hypothyroidism chronic November 28, 2024 8:08am JADEN (obstructive sleep apnea) chroni c November 28, 2024 8:08am Asthma exacerbation acute December 06, 2024 9:45am Chronic cough chronic December 06, 2024 9:45am [facility] Work Phone: 1(635) 245-364112-16-2024 History of Present illness Narrative* Autumn Poole [...] She has since had a MRI/MRCP at [facility]. Though I am the ordering provider, the radiology report was never sent to me. Medical history: Urbano's esophagus, HTN, HLD, hypothyroid, JADEN on BiPAP. Surgical history: Lap cholecystectomy (1998), hysterectomy, ablations for scoliosis. Family history: No pancreatitis or pancreatic cancer. Surgical history: Former smoker. Rare alcohol use. Lives in [place]. Objective There were no vitals taken for [...] did review the images). I will contact [facility] to send the radiology report. She would like a copy for her records. Plan to continue annual surveillance. Autumn Poole PA-C documented in this [facility] Work Phone: 1(961) 966-530603-08-2024 History of Present illness Narrative* Autumn Poole [...] Former smoker. Rare alcohol use. Lives in [place]. Objective BP 131/64 Pulse 73 Temp 35.6 C (96.1 F) Resp 18 Ht 1.707 m (5' 7.21") Wt 130 kg (286 lb 13.1 oz) [...] PLAN: I requested her MRCP images from [place] and personally reviewed. Of note, this was [...] mail the order (to be completed at [facility] as per her preference). Her CA19-9 is 4, suggesting she is a non-secretor. These cysts are not the cause of her GI symptoms. I recommend no diet restrictions but encouraged healthy eating. Autumn Poole PA-C documented in this [facility] Work Phone: 1(847) 291-528001-15-2024 Procedure [facility] 05-04-2023 Procedure [facility]09-08-2023 Discharge summary Author Rafael Bradford [facility] February 20, 2023 1:18pm Note Date/Time February 20, 2023 10:37am [facility] Medical Records Department [address] [place] [address] Emergency Department Summary 02/20/23 MR#: [id number] Acct: [id number] Name: CULLEN CUEVA Rep #:[id number] : [...] similar symptoms: Yes Recent Illness/Hospitalization: No PFSH PFSH Medical History Allergies Anxiety Arthritis Asthma exacerbation [...] % (Auto) 59.5 Lymph % (Auto) 27.3 Cecil % (Auto) 9.7 Eos % (Auto) 2.6 [...] rate of 72 no acute signs of [place] nor ischemiano dysrhythmia. Normal EKG. Discharge Plan [...] them having you being evaluated by a textile coating machine operator or specialist that deals with thyroid disease. Disposition Disposition: Home, Self Care What to do if you have Problems For any increased pain, shortness of breath, bleeding, nausea or vomiting, chestpain, or any unexpected problems, contact your Primary Care Provider. Call [facility] ([phone]) or report to the closest Emergency Room. Call 911 if necessary. 02/20/23 1318 <Electronically signed by Rafael Bradford MD> [facility] (if applicable): CC: Dr. Joseph Smyth MD ~ Signed [facility] Work Phone: 1(756) 983-798409-08-2023 Hospital Discharge instructions Additional Instructions Your labs and CAT scan today were basically unremarkable other than your TSH was low at 0.18. Call and follow-up your primary care physician. You may want to discuss with them having you being evaluated by a textile coating machine operator or specialist that deals with thyroid disease. [facility] Work Phone: [phone]) 982-415009-23-2022 Hospital Discharge instructions Additional Instructions Please take the medication as directed to help resolve your infection. Because you have been having recurrent symptoms over the past month please consider following up with urology for further testing if needed. If you have any further concerns please [facility] the [facility]: Consult note Author Susan Baez [facility] Note Date/Time October 26, 2024 2:30p m [facility] Medical Records Department [address] [place] [address] Pre-Anesthesia Evaluation 10/26/24 1427 MR#: [id number] Acct: [id number] Name: CULLEN CUEVA Rep #:[id number] : 1955 69 From: Susan Baez PCP: Dr. Joseph Smyth MD Status:R [place] [facility]: C Location: [place] [address] ASA Classification* ASA Classification ASA Classification: 3 [...] lab: CBC WBC 9.4 K/mm3 (4.4-11.0) 05/02/24 10:24 05/02/24 RBC 4.77 M/mm3 (4.2-5.4) 05/02/24 10:24 05/02/24 Hgb 14.3 g/dL (12.0-15.0) 05/02/24 10:05/02/24 Hct 43.0 % (37-47) 05/02/24 10:05/02/24 Plt Count 323 K/mm3 (150-450) 05/02/24 10:24 05/02/24 CHEMISTRY Potassium 3.5 mmol/L (3.5-5.1) 05/02/24 10:24 05/02/24 Sodium 138 mmol/L (136-145) 05/02/24 10:24 05/02/24 Magnesium 2.3 mg/dL (1.6-2.6) 10/08/21 10:35 10/08/21 Phosphorus 4.3 mg/dL (2.5-4.9) 09/25/15 07:42 09/25/15 BUN 15 mg/dL (7-18) 05/02/24 10:24 05/02/24 Creatinine 0.78 mg/dL (0.55-1.02) 05/02/24 10:24 05/02/24 Glucose 123 mg/dL (74-106) H 05/02/24 10:24 05/02/24 TSH 0.850 uIU/mL (0.358-3.740) 05/02/24 10:04/15 COAG Pre-Assessment Diagnosis/Proposed Procedure Planned Operative Procedure(s): EGD Anesthesia History Anesthesia History - education program associate: Anesthesia History - education program associate Hx Hospitalization No 10/24/24 13:50 Any Problems [...] take am of surgery PONV PONV - education program associate: PONV - education program associate Female Yes 10/24/24 13:50 HX of Motion [...] 10/26/24 13:44 Respiratory Assessment Respiratory Assessment - education program associate: Respiratory Tract Infection Hx - education program associate Hx Respiratory Tract Infection No 10/24/24 13:50 STOP Sleep Apnea STOP Sleep Apnea - education program associate: STOP Sleep Apnea - education program associate Hx Hypertension No 10/24/24 13:50 Hx Sleep [...] Tobacco Use History Tobacco Use History - education program associate: Tobacco Use History - education program associate Tobacco Use Smoking Status Former smoker 10/24/24 13:50 Hx Tobacco Use No 10/24/24 13:50 Years Smoking Packs Smoked per Day Smoking Cessation Date was No - quit smoking greater 10/24/24 13:50 within the last 15 years than 15 years ago Hx Smoking Cessation Date 06/15/84 10/24/24 13:50 Hx Smoking Cessation Counseling Hematologic Medial History Hematologic Hx - education program associate: Hematologic Medical Hx - form block 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 Hx of Blood Transfusion No 10/24/24 13:50 [...] confused, unrespo /Reproduction History /Reproductive History - education program associate: /Reproductive Hx- education program associate Hx Now No 10/24/24 13:50 Gestational Age [...] budesonide-formoterol HFA 160 2 puff inhalation BID LA N ASTHMA 04/30/23 Unknown History mcg-4.5 mcg/actuation [...] by Susan Baez > Date _ Susan Forbesstefanie Chiangigner Signature: Date CC: ~ Signed [facility] Work Phone: Consult note Author Twan Serrato [facility] Note Date/Time October 26, 2024 3:51p m [facility] Medical Records Department [address] [place] [address] Anesthesia Postop Eval I 10/26/241513 MR#: [id number] Acct: [id number] Name: CULLEN CUEVA Rep #:[id number] : 1955 69 From: Twan TORIBIO PCP: Dr. Joseph Smyth MD Status:R [facility] Y Race: C Location: [place] [address] Anesthesia: Postop Eval I Current Vital Signs [...] by Twan Serrato CRNA> Date _ Twan Chiangigner Signature: Date CC: ~ Signed [facility] Work Phone: Discharge summary Author Luis Alberto Estrella [facility] Note Date/Time December 28, 2024 9:48 am [facility] Medical Records Department [address] [place] [address] Emergency Department Summary 12/28/24 MR#: [id number] Acct: [id number] Name: CULLEN CUEVA Rep #:[id number] : 1955 69 From: Luis Alberto Estrella MD PCP: Dr. Joseph Smyth MD Status:R EG ER Location: ED HPI History of Present Illness Chief Complaint: Shortness of Breath Detail of Chief Complaint: Shortness of breath for approximately 4 weeks Informant: patient Onset/Context/Timing Onset: Weeks (Approximately 4) Context: sudden Timing: Continuous and Waxes and wanes Quality: Positive for Dyspnea on exertion and Wheezing; Negative for Orthopnea or PND Current Severity: Mild Maximum Severity: Moderate Worsened by: - (Humid air.) Relieved by: Nothing Associated Symptoms cough; Negative for rhinorrhea, post nasal drip, ear pain, fever, sore throat, subjective, chills, sweats, clear sputum, white sputum, yellow sputum or green sputum Chest Pain: Positive for None Narrative Narrative: Patient is a 69-year-old woman. She has history of asthma. She was seen by Hiwot Molina in pulmonary department and December 06. She was treated with burst of prednisone at that time and placed on azithromycin. The office note was reviewed. She was also seen by her PCP on November 28 for anxiety and depression. Prior pulmonary visit was April 2024. Patient states her illness started around 28 November. She was seen at the pulmonary office. She was treated with azithromycin and burst of prednisone. She does have an inhaler. She does not have a spacer with her inhaler. She denies fever, chills night sweats. She does have a cough which is nonproductive. She denies any chest pain or anginal equivalent symptoms. She denies leg pain or swelling. She denies discoloration of her legs. She denies orthopnea or PND. She denies history of GERD. PE Risk Factors: Negative for Cancer, OCP + Smoking + > 35, Prior DVT or PE, Recent immobilization, Recent surgery or Recent travel Prior similar symptoms: Yes Recent Illness/Hospitalization: Yes (Documented HPI narrative) [facility] Medical History Fatigue Shortness of breath on exertion Anxiety and [...] 08/29/22 Unknown Rx topical cream #453.6 grams montelukast 10 mg tablet 10 mg PO [...] #90 ca ps 08/22/24 10/26/24 Rx release ferrous sulfate 325 mg (65 mg 325 mg PO DAILY 10/24/24 Unknown History iron) tablet (FeroSul) trazodone 50 mg tablet See Rx Instructions PO QHS P RN 10/24/24 Unknown History Sleep fluoxetine 20 mg capsule 20 mg PO QDAY #90 caps 10/31 Unknown Rx fluoxetine 40 mg capsule 40 mg PO DAILY #90 caps 10/13 03/09 Unknown Rx budesonide-formoterol HFA 160 2 puff inhalation BID LA N ASTHMA 12/01/24 Unknown Rx mcg-4.5 mcg/actuation aerosol #1 ea inhaler (Symbicort) pramipexole 0.25 mg tablet 0.25 - 0.75 mg (1 - 3 x 0.2 5 mg) 12/02/24 Unknown Rx PO QHS RLS #90 tabs fluorometholone 0.1 % eye 1 drp ophthalmic (eye) BID 0 12/06/24 Unknown History drops,suspension zolpidem 5 mg tablet 5 mg PO QHS PRN insomnia #30 tabs 12/26/24 Unknown Rx inhalational spacing device #1 ea 12/28/24 Unknown Rx (Aerochamber MV spacer) prednisone 10 mg tablet 10 mg PO UD #33 tabs 5 Unknown Rx Allergy/AdvReac Type Severity Reaction Status Date / Time pravastatin (From Pravachol) Allergy Mild itching Verified 12/28/24 07:58 ketoprofen (From Orudis) Allergy Nausea/Vom/ Verified 12/28/24 07:58 Diarrhea hydrochlorothiazide (From AdvReac Intermediate Other Verified 12/28/24 07:58 Dyazide) triamterene (From Dyazide) AdvReac Intermediate Other Verified 12/28/24 07:58 Family History Sister CAD (coronary artery disease) [...] you participate in: none ROS ROS ED Constitutional Constitutional ED: Denies chills, fever(s), sweats or weight loss Eyes Eyes: Denies blurry vision or change in vision ENT ENT ED: Denies ear pain, rhinorrhea or sore throat Cardiovascular Cardiovascular: Denies chest pain, orthopnea, palpitations, paroxysmal nocturnaldyspnea or racing heartbeat Respiratory/Chest Respiratory/Chest: Reports cough and dyspnea; Denies dyspnea on exertion, orthopnea, paroxysmal nocturnal dyspnea or sputum Gastrointestinal Gastrointestinal: Denies abdominal pain, diarrhea, nausea or vomiting Genitourinary Genitourinary ED: Denies dysuria, hematuria or urinary frequency Musculoskeletal Musculoskeletal: Denies arthralgias or myalgias Integumentary Denies rash Neurologic Neurologic: Denies headache(s) or paresthesias Hematologic/Lymphatic Hematologic/Lymphatic: Denies easy bleeding or easy bruising EXAM Physical Exam Const Vital Signs: 12/28/24 07:56 12/28/24 08:25 12/28/24 09:01 Temperature 96.8 F L Temperature Source Temporal Pulse Rate 80 86 Respiratory Rate 22 H 17 Respiratory Effort Respiratory Depth Respiratory Pattern Normal Blood Pressure 192/76 H Blood Pressure Mean 114 Pulse Ox 94 Oxygen Delivery Method Room Air Room Air 12/28/24 09:08 12/28/24 09:12 Temperature 97.7 F L Temperature Source Oral Pulse Rate 78 Respiratory Rate 25 H Respiratory Effort Short of Breath Respiratory Depth Normal Respiratory Pattern Normal Blood Pressure 154/77 H Blood Pressure Mean 102 Pulse Ox 92 Oxygen Delivery Method Room Air Room Air Positive well nourished and well developed Constitutional Narrative: BMI is 43.9. Patient's blood pressure is elevated. She is tachypneic. She is not febrile or hypoxic on room air. General Appearance ED: well developed; Negative for pallor HEENT Reports moist mucous membranes HEENT Narrative: Head is atraumatic normocephalic. Ears normal. Nares patent. Posterior pharynx is normal. Uvula is midline. There is no deviation with protrusion. Eyes PERRL and EOMs intact bilaterally General Eye ED: Negative for scleral icterus Neck no lymphadenopathy, supple, no meningeal signs and no JVD Resp normal respiratory effort and No clear to auscultation bilaterally Auscultation: wheezes expiratory wheezes, scattered wheezes and throughout Cardio regular rate, regular rhythm, S1 normal heart sound, S2 normal heart sound and no murmurs GI non-tender, non-distended and no masses Auscultation: normoactive bowel sounds Back/Spine no CVA tenderness Extremity normal to inspection Extremity Narrative: There is no asymmetry, swelling, discoloration, leg vein distention, palpable cords or tenderness along the distribution of the deep venous system. General Extremety ED: Negative for edema or tenderness General Extremity: Negative for edema Neuro oriented x3 and CN's II-XII intact bilaterally Sensorium / Orientation: alert Psych mental status grossly normal Skin no wounds and skin turgor normal General Skin Exam: Negative for jaundice or pallor MDM MDM MDM Narrative Medical decision making narrative: With symptoms for 1 month we will obtain x-ray determine if she has pneumonia. Since she has wheezing she was treated with albuterol x 3 and burst of prednisone. Blood count was obtained to assess for eosinophilia as well as white count. History & Record Review Additional record(s) reviewed:: Prior outpatient record (Documented HPI narrative) and Prior labs Lab Data Attestation: I reviewed the patient's lab results. Lab results narrative: CBC is remarkable for eosinophilia. Labs: Laboratory Results - last 24 hr 12/28/24 08:59 WBC 7.7 RBC 4.18 L Hgb 12.5 Hct 37.2 MCV 89.0 MCH 29.9 MCHC 33.6 RDW Std Deviation 39.6 RDW Coeff of Giancarlo 12.2 Plt Count 291 MPV 9.3 Immature Gran % (Auto) 0.100 Neut % (Auto) 44.6 L Lymph % (Auto) 39.8 Cecil % (Auto) 8.3 Eos % (Auto) 6.6 H Baso % (Auto) 0.6 Absolute Neuts (auto) 3.5 Absolute Lymphs (auto) 3.08 Nucleated RBC % 0 Sodium 138 Potassium 3.5 Chloride 100 Carbon Dioxide 24.9 Anion Gap 13 BUN 15 Creatinine 0.93 Estim Creat Clear Calc 79.13 Est GFR (MDRD) Non-Af 67 BUN/Creatinine Ratio 16.1 Glucose 143 H Calcium 9.1 Radiography Chest X-Ray - ED: 2 View and Read by ED Physician (Limited in story volume. There are some minor chronic changes. Cardiac silhouette size normal. There isno effusion, infiltrate or pneumothorax. Mediastinum is normal. Osseous structures there are some chronic degenerative changes. This is intimately reviewed interpreted by me and) Diagnostic Testing: Clinical Impression(s) from Imaging Studies Chest X-Ray 12/28/24 09:10 IMPRESSION: NO ACUTE FINDINGS. Reading Location: [facility]- Treatment and Re-Evaluation :: Patient was reexamined at 0938. She is no longer wheezing. Pulse ox is 99% on room air. She was informed of her results. Plan is tapering dose of prednisone. Prescription for spacer since she does not have 1. And she should follow-up with pulmonary especially since she has eosinophilia. Discharge Plan Triage Chief Complaint: Shortness of Breath ED Provider: Luis Alberto Estrella Dx/Rx/DC Orders Clinical Impression: Acute exacerbation of asthma with allergic rhinitis, Acute bronchospasm, Eosinophilia, Non-productive cough, Morbid obesity with BMI of 40.0-44.9, adult,Hypothyroidism, Family history of coronary artery disease Instructions: ED Asthma, Acute (Adult), ED MDI Use Spacer or None Prescriptions: New prednisone 10 mg tablet 10 mg PO UD Qty: 33 0RF Rx Instructions: Take 4 tablets daily for 3 days, then 3 daily for 3 days, then 2 daily for 3 days, then 1 a day for 3 days then 1 QOD for 3 doses. (DME) Aerochamber MV Spacer See Rx Instructions .Route Qty: 1 0RF Rx Instructions: As directed No Action montelukast [Singulair] 10 mg tablet 10 mg PO QHS PRN (Reason: ALLERGIES) triamcinolone acetonide 0.1 % cream 1 applic topical BID PRN (Reason: rash) Qty: 453.6 2RF albuterol sulfate 90 mcg/actuation HFA aerosol inhaler 2 - 3 puff inhalation Q6H PRN (Reason: shortness of breath or wheezing) Qty: 8.5 3RF fluorometholone 0.1 % drops,suspension 1 drp ophthalmic (eye) BID calcium carbonate 500 mg calcium (1,250 mg) tablet,chewable 1,000 mg PO DAILY cholecalciferol (vitamin D3) 25 mcg (1,000 unit) tablet,chewable 2,000 unit PO DAILY mecobalamin (vitamin B12) 5,000 mcg Tablet,Disintegrating 5,000 mcg PO DAILY ferrous sulfate [FeroSul] 325 mg (65 mg iron) tablet 325 mg PO DAILY Patient Comments: LAST DOSE 10/22/24 FOR EGD ON 10/26/24 trazodone 50 mg tablet See Rx Instructions PO QHS PRN (Reason: Sleep) Rx Instructions: 50-150 orally at bedtime PRN; (DME) compress.stocking,knee,reg,lrg Misc See Rx Instructions .MEDSUPPLY Qty: 2 1RF Rx Instructions: wear daily for venous insufficiency 20-30 mmHg rosuvastatin [Crestor] 40 mg tablet 40 mg PO DAILY Qty: 90 1RF levothyroxine 175 mcg tablet 175 mcg PO DAILY Qty: 90 1RF omeprazole 40 mg capsule,delayed release(DR/EC) 40 mg PO DAILY Qty: 90 1RF fluoxetine 20 mg capsule 20 mg PO QDAY Qty: 90 3RF Rx Instructions: Take with 40 mg capsule for a total of 60 mg daily. fluoxetine 40 mg capsule 40 mg PO DAILY Qty: 90 1RF Rx Instructions: Take with 20 mg capsule budesonide-formoterol [Symbicort] 160-4.5 mcg/actuation HFA aerosol inhaler 2 puff inhalation BID PRN (Reason: ASTHMA) Qty: 1 2RF Rx Instructions: administer with spacer, rinse mouth after each use pramipexole 0.25 mg tablet 0.25 - 0.75 mg PO QHS Qty: 90 1RF zolpidem 5 mg tablet 5 mg PO QHS PRN (Reason: insomnia) Qty: 30 0RF Primary Care Provider: Joseph Smyth Referrals: Joseph Smyth MD [Primary Care Provider] - 5-7 Days Activity Restrictions/Additional Instructions: Use spacer with your inhaler. Recommend 2 puffs every 2-4 hours while awake forthe next 3 to 5 days then every 4-6 hours as needed. Print Language: Serbian Disposition Disposition: Home, Self Care What to do if you have Problems For any increased pain, shortness of breath, bleeding, nausea or vomiting, chestpain, or any unexpected problems, contact your Primary Care Provider. Call [facility] ([phone]) or report to the closest Emergency Room. Call 911 if necessary. 12/28/24 0946 <Electronically signed by Luis Alberto Estrella MD> Cosigner Signature (if applicable): CC: Dr. Joseph Smyth MD ~ Signed ADDENDUM by Dr. Luis Alberto Estrella MD on 12/28/24 at 0948 EKG was obtained per nurse protocol. The EKG is normal. Rate is 63. LA 138 msper cures duration 90 ms. QT duration 480 ms. [place] is normal. The QT C however is prolonged. Therefore this is not a normal EKG. EKG was ordered per nurse protocol. And reason for delay in reading. 12/28/24 0948<Electronically signed by Luis Alberto Estrella MD> Cosigner Signature (if applicable): cc: Dr. Joseph Smyth MD ~* Signed [facility] Work Phone: Evaluation note* Diagnosis Onset Date Resolution Status Asthma acute JADEN (obstructive sleep apnea) acute Pulmonary hypertension acute Chronic cough chronic Morbid obesity with BMI of 40.0-44.9, adult chronic Health care maintenance acut e Barretts esophagus chronic Essential hypertension chron ic Hyperlipemia chronic Hypothyroidism chronic Insomnia chronic Asthma acute JADEN (obstructive sleep apnea) acute [facility] Work Phone: Evaluation note* Diagnosis Onset Date Resolution Status Health care maintenance acut e Barretts esophagus chronic Essential hypertension chron ic Hyperlipemia chronic Hypothyroidism chronic Insomnia chronic Asthma acute JADEN (obstructive sleep apnea) acute Shortness of breath chronic Asthma acute JADEN (obstructive sleep apnea) acute Pulmonary hypertension acute Shortness of breath chronic [facility] Work Phone: Evaluation note* Diagnosis Onset Date Resolution Status Health care maintenance acut e Barretts esophagus chronic Essential hypertension chron ic Hyperlipemia chronic Hypothyroidism chronic Insomnia chronic Asthma acute JADEN (obstructive sleep apnea) acute Shortness of breath chronic Asthma acute JADEN (obstructive sleep apnea) acute Pulmonary hypertension acute Shortness of breath chronic Essential hypertension chron ic [facility] Work Phone: Evaluation note* Diagnosis Onset Date [...] Venous insufficiency of both lower extremities chronic [facility] Work Phone: Evaluation note* Diagnosis Onset Date [...] Venous insufficiency of both lower extremities chronic [facility] Work Phone: Evaluation note* Diagnosis Onset Date [...] lower extremities chronic Musculoskeletal back pain ac [place] Essential hypertension chron ic [facility] Work Phone: Evaluation note* Diagnosis Onset Date Resolution Status Essential hypertension chron ic Morbid obesity with BMI of 40.0-44.9, adult chronic Venous insufficiency of both lower extremities chronic Musculoskeletal back pain ac [place] Essential hypertension chron ic Asthma acute Essential hypertension chron ic Venous insufficiency of both lower extremities chronic Asthma acute JADEN (obstructive sleep apnea) acute Pulmonary hypertension acute [facility] Work Phone: Evaluation note* Diagnosis Onset Date Resolution Status Musculoskeletal back pain ac [place] Essential hypertension chron ic Asthma acute Essential hypertension chron ic Venous insufficiency of both lower extremities chronic Asthma acute JADEN (obstructive sleep apnea) acute Pulmonary hypertension acute [facility] Work Phone: Evaluation note* Diagnosis Onset Date Resolution Status Musculoskeletal back pain ac [place] Essential hypertension chron ic Asthma acute Essential hypertension chron ic Venous insufficiency of both lower extremities chronic Asthma acute JADEN (obstructive sleep apnea) acute Pulmonary hypertension acute Essential hypertension chron ic URI (upper respiratory infection) noneactive [facility] Work Phone: Evaluation note* Diagnosis Onset Date Resolution Status Musculoskeletal back pain ac [place] Essential hypertension chron ic Asthma acute Essential [...] Hypothyroidism chronic URI (upper respiratory infection) noneactive [facility] Work Phone: Evaluation note* Diagnosis Onset Date Resolution Status Health care maintenance acut e Anxiety chronic Dry skin dermatitis chronic Essential hypertension chron ic GERD (gastroesophageal reflux disease) chronic Hypothyroidism chronic Dysuria acute [facility] Work Phone: Evaluation note* Diagnosis Onset Date Resolution Status Health care maintenance acut e Anxiety chronic Dry skin dermatitis chronic Essential hypertension chron ic GERD (gastroesophageal reflux disease) chronic Hypothyroidism chronic Dysuria acute Asthma acute JADEN (obstructive sleep apnea) acute Pulmonary hypertension acute Allergies acute Essential hypertension chron ic Hyperlipemia chronic Hypothyroidism chronic Barretts esophagus chronic Constipation chronic [facility] Work Phone: Evaluation note* Diagnosis Onset Date Resolution Status Asthma acute JADEN (obstructive sleep apnea) acute Pulmonary hypertension acute Allergies acute Essential hypertension chron ic Hyperlipemia chronic Hypothyroidism chronic Barretts esophagus chronic Constipation chronic [facility] Work Phone: Evaluation note* Diagnosis Onset Date Resolution Status Asthma acute JADEN (obstructive sleep apnea) acute Pulmonary hypertension acute Allergies acute Essential hypertension chron ic Hyperlipemia chronic Hypothyroidism chronic Barretts esophagus chronic Constipation chronic Hx: UTI (urinary tract infection) acute Malaise and fatigue acute Essential hypertension chron ic Hypothyroidism chronic Insomnia chronic [facility] Work Phone: Evaluation note* Diagnosis Onset Date Resolution Status Allergies acute Essential hypertension chron ic Hyperlipemia chronic Hypothyroidism chronic Barretts esophagus chronic Constipation chronic Hx: UTI (urinary tract infection) acute Malaise and fatigue acute Essential hypertension chron ic Hypothyroidism chronic Insomnia chronic [facility] Work Phone: Evaluation note* Diagnosis Onset Date Resolution Status Hx: UTI (urinary tract infection) acute Essential hypertension chron ic Hypothyroidism chronic Insomnia chronic Malaise and fatigue resolved Choledocholithiasis acute Barretts esophagus chronic Constipation chronic Flu vaccine need acute Essential hypertension chron ic Hypothyroidism chronic Insomnia chronic Venous insufficiency of both lower extremities chronic Malaise and fatigue resolved [facility] Work Phone: Evaluation note* Diagnosis Onset Date Resolution Status Choledocholithiasis acute Barretts esophagus chronic Constipation chronic Flu vaccine need acute Essential hypertension chron ic Hypothyroidism chronic Insomnia chronic Venous insufficiency of both lower extremities chronic Malaise and fatigue resolved JADEN (obstructive sleep apnea) acute Asthma chronic [facility] Work Phone: Evaluation note* Diagnosis Onset Date [...] Pancreatic lesion chronic Malaise and fatigue resolved [facility] Work Phone: Evaluation note* Diagnosis IPMN (intraductal papillary mucinous neoplasm)- Primary Neoplasm of unspecified nature of digestive system documented in this encounter [facility] Work Phone: Evaluation note* Diagnosis IPMN (intraductal papillary mucinous neoplasm) Neoplasm of unspecified nature of digestive system documented in this encounter [facility] Work Phone: Evaluation note* Diagnosis IPMN (intraductal papillary mucinous neoplasm)- Primary Neoplasm of unspecified nature of digestive system documented in this encounter [facility] Work Phone: History and physical note Author Brant Friend [facility] Note Date/Time October 26, 2024 2:30p m [facility] Medical Records Department [address] [place] [id number] History & Physical Exam 10/26/24 1427 MR#: [id number] Acct: [id number] Name: CULLEN CUEVA Rep #:[id number] : 1955 69 From: Brant Friend DO PCP: Dr. Joseph Smyth MD [place] [facility] [place] [address] HPI - General General Date of Admission: 10/26/24 Date of Service: 10/26/24 Chief Complaint: urbano's esophagus HPI Narrative CULLEN CUEVA, is a 69 F who presentsPATRICPHILIP CUEVA, is a 69 F who presents [...] some intermittent nausea and afternoon/evening bloating. OV 10.18.24 pt reports increased difficulty swallowing, stating that "things are getting caught and cutting off her trachea". Notes nausea about 3 times a week, cannot pinpoint trigger or alleviating factors. [facility] Medical History Shortness of breath on [...] budesonide-formoterol HFA 160 2 puff inhalation BID LA N ASTHMA 04/30/23 Unknown History mcg-4.5 mcg/actuation [...] ischemic colitis, medication side effect. She will go,"thing, stool testing and possibly colonoscopy in the future. Patient is okay with this plan. We started on Amitiza and she is actually doing very well with Amitiza. It is allowing her to have a daily bowel movement. We will continue that for the near future over the next 6 months. (3) Pancreatic lesion: Status: Chronic Comment: MRCP 05.19.23 (4) Choledocholithiasis: Status: Acute Plan: She has [...] Joseph Smyth MD; Brant Langley DO~ Signed [facility] Work Phone: Reason for referral (narrative)No reason for [facility] Reason for visit Narrative* Imaging (Routine) - Pending Review Specialty Diagnoses / Procedures Referred By Contac t Referred To Contact Radiology Diagnoses IPMN (intraductal papillary mucinous neoplasm) Procedures MRCP pancreas w and wo IV contrast Autumn Poole PA-C [id number] [address] Department of Surgery-[place] [address] Phone: tel: fax: Referral ID Status Reason Start Date Expiration Date Visits Requested Visits Authorized [id number] Pending Review Perform Procedure 4 04/06/2025 1 1 [facility] Work Phone: Summary Purpose Family History [...] No September 21, 2021 5:47pm Power of Journeyman Sheet Metal Worker No September 21 5:47pm Advance Directive Response Recorded Date/ Time Advance Directives No February 11, 2014 5:05pm Living Will No October 25, 2021 8 :56am Power of Journeyman Sheet Metal Worker No October 25, 2021 8:56am Advance Directive Response Recorded Date/ Time Advance Directives No February 11, 2014 5:05pm Living Will No April 03 4:21am Power of Journeyman Sheet Metal Worker No April 03, 2022 4:21am Advance Directive Response Recorded Date/ Time Advance Directives No February 11, 2014 4:05pm Living Will No April 03 3:21am Power of Journeyman Sheet Metal Worker No April 03, 2022 3:21am Advance Directive Response Recorded Date/ Time Advance Directives No May 21, 2020 11:31am Living Will No April 03 4:21am Power of Journeyman Sheet Metal Worker No April 03, 2022 4:21am Advance Directive Response Recorded Date/ Time Advance Directives No May 21, 2020 11:31am Living Will No February 20 023 10:10am Power of Journeyman Sheet Metal Worker No February 20, 2023 10:10am Advance Directive Response Recorded Date/ Time Advance Directives No May 21, 2020 10:31am Living Will No March 16 9:44am Power of Journeyman Sheet Metal Worker No March 16 023 9:44am Advance Directive Response Recorded Date/ Time Advance Directives No May 21, 2020 10:31am Living Will No April 30, 023 9:47am Power of Journeyman Sheet Metal Worker No April 30, 2023 9:47am Advance Directive Response Recorded Date/ Time Do you have a Healthcare Power of Journeyman Sheet Metal Worker? No October 24, 2024 1:50pm Advance Directives No May 21, 2020 11:31am Advance Directive Response Recorded Date/ Time Do you have a Healthcare Power of Journeyman Sheet Metal Worker? No October 24, 2024 1:50pm Do you have a Healthcare Power of Journeyman Sheet Metal Worker? No December 28, 2024 9:12am Advance Directives No May 21, 2020 11:31am Advance Directive Response Recorded Date/ Time Do you have a Healthcare Power of Journeyman Sheet Metal Worker? No December 28, 2024 9:12am Advance Directives No May 21, 2020 11:31am [...] (obstructive sleep apnea) Shortness of breath Asthma JDAEN (obstructive sleep apnea) Pulmonary hypertension Shortness of [...] POSSIBLE UTI Reason for Visit [facility] Anxiety Dry skin dermatitis Essential hypertension GERD (gastroesophageal reflux disease) Hypothyroidism Dysuria Chief Complaint CERVICAL AND THORACI C SPINE PT HAS RX ANNUAL SCREENING POSSIBLE UTI 6 M FU E ORDER Allergies Consult E-ORDER Reason for Visit [facility] Anxiety Dry skin dermatitis Essential hypertension GERD (gastroesophageal reflux disease) Hypothyroidism Dysuria Asthma JADEN (obstructive sleep apnea) Pulmonary hypertension Allergies Essential hypertension Hyperlipemia Hypothyroidism Barretts esophagus Constipation Chief Complaint ANNUAL SCREENING POSSIBLE UTI 6 M FU E ORDER Allergies Consult E-ORDER Reason for Visit [facility] care [facility] Anxiety Dry skin dermatitis Essential hypertension GERD (gastroesophageal reflux disease) Hypothyroidism Dysuria Asthma JADEN (obstructive sleep apnea) Pulmonary hypertension Allergies Essential hypertension Hyperlipemia Hypothyroidism Barretts esophagus Constipation Chief Complaint ANNUAL SCREENING POSSIBLE UTI 6 M FU E ORDER Allergies Consult E-ORDER e order Reason for Visit [facility] Anxiety Dry skin dermatitis Essential hypertension [...] Calculus of bile duct without cholangitis or sue Reason for Visit Choledocholithiasis Barretts esophagus Constipation Flu vaccine need Essential hypertension Hypothyroidism Insomnia Venous insufficiency of both lower extremities Malaise and fatigue JADEN (obstructive sleep apnea) Asthma Chief Complaint E ORDERS E ORDER 2 WK FU 8 wk fu 6 M FU Calculus of bile duct without cholangitis or sue E ORDERS Reason for Visit Choledocholithiasis Barretts esophagus Constipation Flu vaccine need Essential hypertension Hypothyroidism Insomnia Venous insufficiency of both lower extremities Malaise and fatigue JADEN (obstructive sleep apnea) Asthma Chief Complaint E ORDER 2 WK FU 8 wk fu 6 M FU Calculus of bile duct without cholangitis or sue E ORDERS FU 3 m fu Reason [...] 8:4 9am Borderline type 2 diabetes mellitus [facility] 2024 8:49am Essential hypertension August 29, 2024 [...] Globus sensation October 26, 2024 1:04p m Chief Complaint Admit Date 4 M FU August 29, 2024 8:4 9am POSSIBLE INCREASE IN MEDS September 23 8:25am follow up October 18, 2024 8:54am INT LABS November 25, 2024 6:16 am 3 m fu November 28, 2024 8:08 am Reason for Visit Admit Date History of fall August 29, 2024 8:4 9am Anxiety August 29, 2024 8:4 9am Borderline type 2 diabetes mellitus [facility] 2024 8:49am Essential hypertension August 29, 2024 [...] Globus sensation October 26, 2024 1:04p m Anxiety and depression November 28, 2024 8 :08am Essential hypertension November 28, 2024 8 :08am Fatigue November 28, 2024 8:08 am Hypothyroidism November 28, 2024 8:08 am JADEN (obstructive sleep apnea) November 28, 2024 8:08am Chief Complaint Admit Date 4 M FU August 29, 2024 8:4 9am POSSIBLE INCREASE IN MEDS September 23 8:25am follow up October 18, 2024 8:54am INT LABS November 25, 2024 6:16 am 3 m fu November 28, 2024 8:08 am Acute sick December 06, 2024 9:45 am Reason for Visit Admit Date History of fall August 29, 2024 8:4 9am Anxiety August 29, 2024 8:4 9am Borderline type 2 diabetes mellitus Jose E 2024 8:49am Essential hypertension August 29, 2024 [...] Globus sensation October 26, 2024 1:04p m Anxiety and depression November 28, 2024 8 :08am Essential hypertension November 28, 2024 8 :08am Fatigue November 28, 2024 8:08 am Hypothyroidism November 28, 2024 8:08 am JADEN (obstructive sleep apnea) November 28, 2024 8:08am Asthma exacerbation December 06, 2024 9:45 am Chronic cough December 06, 2024 9:45 am Chief Complaint Admit Date POSSIBLE INCREASE IN MEDS September 23 8:25am follow up October 18, 2024 8:54am INT LABS November 25, 2024 6:16 am 3 m fu November 28, 2024 8:08 am Acute sick December 06, 2024 9:45 am sob December 28, 2024 7:56 am Reason for Visit Admit Date Anxiety and depression September 23, 2024 8:25am Insomnia September 23, 2024 8:2 5am Choledocholithiasis October 18, 2024 8:54am Barretts esophagus October 18, 2024 8:54am Constipation October 18, 2024 8:54am Pancreatic lesion October 18, 2024 8:54am Dysphagia October 26, 2024 1:04p m Barretts esophagus October 26, 2024 1:04p m Globus sensation October 26, 2024 1:04p m Anxiety and depression November 28, 2024 8 :08am Essential hypertension November 28, 2024 8 :08am Fatigue November 28, 2024 8:08 am Hypothyroidism November 28, 2024 8:08 am JADEN (obstructive sleep apnea) November 28, 2024 8:08am Asthma exacerbation December 06, 2024 9:45 am Chronic cough December 06, 2024 9:45 am Chief Complaint Admit Date follow up October 18, 2024 8:54am INT LABS November 25, 2024 6:16 am 3 m fu November 28, 2024 8:08 am Acute sick December 06, 2024 9:45 am sob December 28, 2024 7:56 am E ORDER January 23, 2025 8: 38am Reason for Visit Admit Date Choledocholithiasis October 18, 2024 8:54am Barretts esophagus October 18, 2024 8:54am Constipation October 18, 2024 8:54am Pancreatic lesion October 18, 2024 8:54am Dysphagia October 26, 2024 1:04p m Barretts esophagus October 26, 2024 1:04p m Globus sensation October 26, 2024 1:04p m Anxiety and depression November 28, 2024 8 :08am Essential hypertension November 28, 2024 8 :08am Fatigue November 28, 2024 8:08 am Hypothyroidism November 28, 2024 8:08 am JADEN (obstructive sleep apnea) November 28, 2024 8:08am Asthma exacerbation December 06, 2024 9:45 am Chronic cough December 06, 2024 9:45 am Chief Complaint Admit Date INT LABS November 25, 2024 6:16 am 3 m fu November 28, 2024 8:08 am Acute sick December 06, 2024 9:45 am sob December 28, 2024 7:56 am E ORDER January 23, 2025 8: 38am 3 M FU February 27, 2025 7:21am Reason for Visit Admit Date Anxiety and depression November 28, 2024 8 :08am Essential hypertension November 28, 2024 8 :08am Fatigue November 28, 2024 8:08 am Hypothyroidism November 28, 2024 8:08 am JADEN (obstructive sleep apnea) November 28, 2024 8:08am Asthma exacerbation December 06, 2024 9:45 am Chronic cough December 06, 2024 9:45 am Abnormal EKG February 27, 2025 7:21am Health care maintenance February 27, 2025 7:21am Anxiety and depression February 27 025 7:21am Asthma February 27, 2025 7:21am Borderline type 2 diabetes mellitus Sept emb2024 7:21am Essential hypertension February 27 2 025 7:21am Fatigue February 27, 2025 7:21am Hypothyroidism February 27, 2025 7:21am Insomnia February 27, 2025 7:21am Additional Source Comments INFORMATION SOURCE (unrecogn ized section and content) DATE CREATED AUTHOR 02/21/2020 [facility] DATE CREATED AUTHOR AUTHOR'S ORGANIZ ATION 06/06/2024 [facility] DATE CREATED AUTHOR AUTHOR'S ORGANIZ ATION 03/05/2025 [facility] Goals (unrecognized section and content) Goals may [...] Provider, Refer ring Provider Active Sai Smalls WATER CHASER, WATER CHASER-C Attending Provider Active Team Status: Active Member Role Status Dates Dr. Joseph Smyth MD Primary Care Provider Active Anjali Mazariegos WATER CHASER, WATER CHASER-C Attending Provider, Referring Pr ovider Active Team Status: Inactive Member Role Status Dates Dr. Joseph Smyth MD Primary Care Provider, Atten ding Provider Active Team Status: Inactive Member Role Status Dates Dr. Joseph Smyth MD Primary Care Provider Active Sai Smalls WATER CHASER, WATER CHASER-C Attending Provider, Referring Prov ider Active Team [...] MD Primary Care Provider Active Anjali Mazariegos WATER CHASER, WATER CHASER-C Attending Provider, Referring Pr ovider Active Team [...] Smyth MD Primary Care Provider Active Dr. Rafeal Bradford MD Attending Provider, Emergency Pro vider [...] Smyth MD Referring Provider Active Angi Saleh WATER CHASER, WATER CHASER-C Attending Provider Active Team Status: Inactive Member Role Status Dates Dr. Brant Langley DO Attending Provider, Referring Provider Active Dr. Joseph Smyth MD Primary Care Provider Active Automation And Controls Manager Relationship Specialty Start Date End Date Joseph Smyth MD [address] [place] [address] Internal Medicine [facility] [place] [address] PCP - General Internal Medicine 08/19/23 Automation And Controls Manager Relationship Specialty Start Date End Date Joseph Smyth MD [address] [place] [address] Internal Medicine [facility] [place] [address] PCP - General Internal Medicine 08/19/23 Brant Langley DO [address] [place] [address] [place], [place] [id number] Gastroenterology 08/19/23 Automation And Controls Manager Relationship Specialty Start Date End Date Joseph Smyth MD [address] [place] [address] Internal [place] [facility] [place] [address] PCP - General Internal Medicine 08/19/23 Brant Langley DO [address] [place] [address], [place] [id number] Gastroenterology 08/19/23 Team Status: Active Member Role [...] Start: October 26, 2024 Dr. Brant Langley DO Attending Provider Active Start: October 26, 2024 Dr. Brant Langley DO Other Provider Active St art: October 26, 2024 Team Status: Active Member Role Status Dates Dr. Joseph Smyth MD Primary Care Provider Active Start: November 25, 2024 Dr. Joseph Smyth MD Attending Provider Active Start: November 25, 2024 Dr. Joseph Smyth MD Referring Provider Active Start: November 25, 2024 Team Status: Inactive Member Role Status Dates Dr. Joseph Smyth MD Primary Care Provider Active Start: November 28, 2024 End: November 28, 2024 Dr. Joseph Smyth MD Attending Provider Active Start: November 28, 2024 End: November 28, 2024 Dr. Joseph Smyth MD Referring Provider Active Start: November 28, 2024 End: November 28, 2024 Team Status: Inactive Member Role Status Dates Dr. Joseph Smyth MD Primary Care Provider Active Start: November 25, 2024 End: November 25, 2024 Dr. Joseph Smyth MD Attending Provider Active Start: November 25, 2024 End: November 25, 2024 Dr. Joseph Smyth MD Referring Provider Active Start: November 25, 2024 End: November 25, 2024 Team Status: Inactive Member Role Status Dates Dr. Joseph Smyth MD Primary Care Provider Active Start: December 06, 2024 End: December 06, 2024 Dr. Joseph Smyth MD Referring Provider Active Start: December 06, 2024 End: December 06, 2024 Angi Saleh WATER CHASER, WATER CHASER-C Attending Provider Active Start: December 06, 2024 End: December 06, 2024 Team Status: Active Member Role/Relationship Status Dates Dr. Joseph Smyth MD Primary Care Provider Active Team Status: Inactive Member Role/Relationship Status Dates Dr. Joseph Smyth MD Primary Care Provider Active Start: September 23, 2024 End: September 23, 2024 Dr. Joseph Smyth MD Attending Provider Active Start: September 23, 2024 End: September 23, 2024 Dr. Joseph Smyth MD Referring Provider Active Start: September 23, 2024 End: September 23, 2024 Team Status: Inactive Member Role/Relationship Status Dates Dr. Jospeh Smyth MD Primary Care Provider Active Start: October 18, 2024 End: October 18, 2024 Dr. Joseph Smyth MD Referring Provider Active Start: October 18, 2024 End: October 18, 2024 Dr. Brant Langley DO Attending Provider Active Start: October 18, 2024 End: October 18, 2024 Team Status: Inactive Member Role/Relationship Status Dates Dr. Joseph Smyth MD Primary Care Provider Active Start: October 26, 2024 End: October 26, 2024 Dr. Joseph Smyth MD Referring Provider Active Start: October 26, 2024 End: October 26, 2024 Dr. Brant Langley DO Attending Provider Active Start: October 26, 2024 End: October 26, 2024 Team Status: Active Member Role/Relationship Status Dates Dr. Joseph Smyth MD Primary Care Provider Active Start: October 26, 2024 Dr. Joseph Smyth MD Referring Provider Active Start: October 26, 2024 Dr. Brant Langley DO Attending Provider Active Start: October 26, 2024 Dr. Brant Langley DO Other Provider Active St art: October 26, 2024 Team Status: Inactive Member Role/Relationship Status Dates Dr. Joseph Smyth MD Primary Care Provider Active Start: November 25, 2024 End: November 25, 2024 Dr. Joseph Smyth MD Attending Provider Active Start: November 25, 2024 End: November 25, 2024 Dr. Joseph Smyth MD Referring Provider Active Start: November 25, 2024 End: November 25, 2024 Team Status: Inactive Member Role/Relationship Status Dates Dr. Joseph Smyth MD Primary Care Provider Active Start: November 28, 2024 End: November 28, 2024 Dr. Joseph Smyth MD Attending Provider Active Start: November 28, 2024 End: November 28, 2024 Dr. Joseph Smyth MD Referring Provider Active Start: November 28, 2024 End: November 28, 2024 Team Status: Inactive Member Role/Relationship Status Dates Dr. Joseph Smyth MD Primary Care Provider Active Start: December 06, 2024 End: December 06, 2024 Dr. Joseph Smyth MD Referring Provider Active Start: December 06, 2024 End: December 06, 2024 Angi Saleh WATER CHASER, WATER CHASER-C Attending Provider Active Start: December 06, 2024 End: December 06, 2024 Team Status: Inactive Member Role/Relationship Status Dates Dr. Joseph Smyth MD Primary Care Provider Active Start: December 28, 2024 End: December 28, 2024 Dr. Luis Alberto Estrella MD Emergency Provider Active Sta rt: December 28, 2024 End: December 28, 2024 Team Status: Inactive Member Role/Relationship Status Dates Dr. Joseph Smyth MD Primary Care Provider Active Start: October 18, 2024 End: October 18, 2024 Dr. Joseph Smyth MD Referring Provider Active Start: October 18, 2024 End: October 18, 2024 Dr. Brant Langley DO Attending Provider Active Start: October 18, 2024 End: October 18, 2024 Team Status: Inactive Member Role/Relationship Status Dates Dr. Joseph Smyth MD Primary Care Provider Active Start: October 26, 2024 End: October 26, 2024 Dr. Joseph Smyth MD Referring Provider Active Start: October 26, 2024 End: October 26, 2024 Dr. Brant Langley DO Attending Provider Active Start: October 26, 2024 End: October 26, 2024 Team Status: Active Member Role/Relationship Status Dates Dr. Joseph Smyth MD Primary Care Provider Active Start: October 26, 2024 Dr. Joseph Smyth MD Referring Provider Active Start: October 26, 2024 Dr. Brant Langley DO Attending Provider Active Start: October 26, 2024 Dr. Brant Langley DO Other Provider Active St art: October 26, 2024 Team Status: Inactive Member Role/Relationship Status Dates Dr. Joseph Smyth MD Primary Care Provider Active Start: November 25, 2024 End: November 25, 2024 Dr. Joseph Smyth MD Attending Provider Active Start: November 25, 2024 End: November 25, 2024 Dr. Joseph Smyth MD Referring Provider Active Start: November 25, 2024 End: November 25, 2024 Team Status: Inactive Member Role/Relationship Status Dates Dr. Joseph Smyth MD Primary Care Provider Active Start: November 28, 2024 End: November 28, 2024 Dr. Joseph Smyth MD Attending Provider Active Start: November 28, 2024 End: November 28, 2024 Dr. Joseph Smyth MD Referring Provider Active Start: November 28, 2024 End: November 28, 2024 Team Status: Inactive Member Role/Relationship Status Dates Dr. Joseph Smyth MD Primary Care Provider Active Start: December 06, 2024 End: December 06, 2024 Dr. Joseph Smyth MD Referring Provider Active Start: December 06, 2024 End: December 06, 2024 Angi Saleh WATER CHASER, WATER CHASER-C Attending Provider Active Start: December 06, 2024 End: December 06, 2024 Team Status: Inactive Member Role/Relationship Status Dates Dr. Joseph Smyth MD Primary Care Provider Active Start: December 28, 2024 End: December 28, 2024 Dr. Luis Alberto Estrella MD Attending Provider Active Sta rt: December 28, 2024 End: December 28, 2024 Dr. Luis Alberto Estrella MD Emergency Provider Active Sta rt: December 28, 2024 End: December 28, 2024 Team Status: Inactive Member Role/Relationship Status Dates Dr. Joseph Smyth MD Primary Care Provider Active Start: January 23, 2025 End: January 23, 2025 Dr. Joseph Smtyh MD Attending Provider Active Start: January 23, 2025 End: January 23, 2025 Dr. Joseph Smyth MD Referring Provider Active Start: January 23, 2025 End: January 23, 2025 Team Status: Inactive Member Role/Relationship Status Dates Dr. Joseph Smyth MD Primary Care Provider Active Start: November 25, 2024 End: November 25, 2024 Dr. Joseph Smyth MD Attending Provider Active Start: November 25, 2024 End: November 25, 2024 Dr. Joseph Smyth MD Referring Provider Active Start: November 25, 2024 End: November 25, 2024 Team Status: Inactive Member Role/Relationship Status Dates Dr. Joseph Smyth MD Primary Care Provider Active Start: November 28, 2024 End: November 28, 2024 Dr. Joseph Smyth MD Attending Provider Active Start: November 28, 2024 End: November 28, 2024 Dr. Joseph Smyth MD Referring Provider Active Start: November 28, 2024 End: November 28, 2024 Team Status: Inactive Member Role/Relationship Status Dates Dr. Joseph Smyth MD Primary Care Provider Active Start: December 06, 2024 End: December 06, 2024 Dr. Joseph Smyth MD Referring Provider Active Start: December 06, 2024 End: December 06, 2024 Angi Saleh WATER CHASER, WATER CHASER-C Attending Provider Active Start: December 06, 2024 End: December 06, 2024 Team Status: Inactive Member Role/Relationship Status Dates Dr. Joseph Smyth MD Primary Care Provider Active Start: December 28, 2024 End: December 28, 2024 Dr. Luis Alberto Estrella MD Attending Provider Active Sta rt: December 28, 2024 End: December 28, 2024 Dr. Luis Alberto Estrella MD Emergency Provider Active Sta rt: December 28, 2024 End: December 28, 2024 Team Status: Inactive Member Role/Relationship Status Dates Dr. Joseph Smyth MD Primary Care Provider Active Start: January 23, 2025 End: January 23, 2025 Dr. Joseph Smyth MD Attending Provider Active Start: January 23, 2025 End: January 23, 2025 Dr. Joseph Smyth MD Referring Provider Active Start: January 23, 2025 End: January 23, 2025 Team Status: Inactive Member Role/Relationship Status Dates Dr. Joseph Smyth MD Primary Care Provider Active Start: February 27, 2025 End: February 27, 2025 Dr. Joseph Smyth MD Attending Provider Active Start: February 27, 2025 End: February 27, 2025 Dr. Joseph Smyth MD Referring Provider Active Start: February 27, 2025 End: February 27, 2025 Reason for Visit (unrecogniz ed section and [...] BE BASED ON THE PRIMARY CLINICAL RECORDS. [facility] [employer] [facility]. provides no warranty or guarantee of the accuracy or completeness of information in this document.
--- NOTE | 2025-03-10 07:30 | BI_ITS ---
EXAM: SCRN MAMM (CAD)W/HANANE BILAT DATE: 03/10/2025 CLINICAL HISTORY: F, Age 69 y/o , BREAST CANCER SCREENING TECHNIQUE: Procedure Code: [id number] Modality: MG Procedure: SCRN MAMM (CAD)W/HANANE BILAT COMPARISON: Prior exam(s) dated 03/03/2024, 10/12/2022, 09/24/2021. FINDINGS: TISSUE DENSITY: There are scattered areas of fibroglandular density. Bilateral Breast Mammographic Findings: No significant masses, calcifications or other abnormalities are identified. BI/SCRN MAMM (CAD)W/HANANE BILAT IMPRESSION: There is no mammographic evidence of malignancy. OVERALL FINAL ASSESSMENT BI-RADS 1: NEGATIVE. RECOMMENDATION: Routine annual follow-up in 1 Year Additional Recommendation none A letter with findings and recommendations will be mailed to the patient. Reading Location: [id number]
== END | disposition home or self-care (01) ==
LOC: OPBI 07:22
PROVIDERS: PCP Internal Medicine; Referring Provider Internal Medicine; Visit Provider Internal Medicine
DX: Z12.31 Encounter for screening mammogram for malignant neoplasm of breast (principal)
CPT/HCPCS: 77063; 77067

== ENCOUNTER → 2025-05-30 | Outpatient (CLI) | payer MEDICARE, SELFPAY ==
[2025-05-30 10:59] LABS: Hematocrit 41.1 % (37-47); Hemoglobin 13.5 g/dL (12.0-15.0); Immature Granulocytes Count 0.020 X10^3/uL (0.0-0.0); Mean Corp Hgb Conc 32.8 g/dL (32-36); Mean Corpuscular Volume 91.3 fL (81-99); Mean Platelet Vol. 9.9 fl (6.2-12.0); NRBC Flagged by Analyzer 0 % (0-5); Platelet Count 308 K/mm3 (150-450); RBC Distribution Width CV 12.7 % (11.6-14.6); RBC Distribution Width SD 41.9 fl (35.1-43.9); Red Blood Count 4.50 M/mm3 (4.2-5.4); White Blood Count 7.6 K/mm3 (4.4-11.0)
[2025-05-30 11:35] LABS: AST(SGOT) 25 U/L (<=31); Alanine Aminotransfer ALT/SGPT 18 U/L (<=34); Albumin, Serum 4.1 g/dL (3.4-4.8); Alkaline Phosphatase 99 U/L (35-104); Anion Gap 9 (5-15); BUN 23 mg/dL (4-19); BUN/Creat Ratio 27.0 RATIO (10-20); Calcium,Total 9.6 mg/dL (7.6-11.0); Carbon Dioxide 26.2 mmol/L (21.0-32.0); Chloride 105 mmol/L (98-108); Globulin 2.9 g/dL (2.2-4.2); Glucose 86 mg/dL (70-99); Potassium 4.1 mmol/L (3.3-5.1)
== END | disposition home or self-care (01) ==
LOC: LAB 09:27
PROVIDERS: PCP Internal Medicine; Referring Provider Internal Medicine; Visit Provider Internal Medicine
DX: R73.03 Prediabetes (principal); E03.9 Hypothyroidism, unspecified
CPT/HCPCS: 36415; 80053; 83036; 84443; 85025